=== PATIENT | male | born 1980 | race Caucasian/White ===

== ENCOUNTER → 2017-07-05 19:04 | Outpatient (CLI) | payer OTHER, SELFPAY ==
[2017-07-05 23:22] LABS: M R Staph aureus DNA By PCR Negative (Negative); Probe Check PASS; Specimen Processing Control PASS; Staph aureus DNA By PCR POSITIVE (Negative)
== END ==
PROVIDERS: Family Provider Internal Medicine; PCP Internal Medicine; Visit Provider Podiatrist
DX: L97.519 Non-pressure chronic ulcer of other part of right foot with unspecified severity (principal)
CPT/HCPCS: 87070; 87077; 87205; 87640

== ENCOUNTER → 2017-11-29 17:04 | Outpatient (CLI) | payer OTHER, SELFPAY | PROVIDERS: Family Provider Internal Medicine; PCP Internal Medicine; Visit Provider Urology | DX: R82.99 Other abnormal findings in urine (principal) | CPT/HCPCS: 87086 ==

== ENCOUNTER → 2018-05-10 17:45 | Outpatient (CLI) | payer OTHER, SELFPAY ==
[2016-03-11 13:40] VITALS: BMI 27.7
[2018-05-10 19:40] LABS: M R Staph aureus DNA By PCR Negative (Negative); Probe Check PASS; Specimen Processing Control PASS; Staph aureus DNA By PCR NEGATIVE (Negative)
== END ==
PROVIDERS: Family Provider Internal Medicine; PCP Internal Medicine; Referring Provider Podiatrist; Visit Provider Podiatrist
DX: L60.0 Ingrowing nail (principal)
CPT/HCPCS: 87070; 87075; 87077; 87186; 87205; 87640

== ENCOUNTER 2019-10-01 15:31 | Emergency (ER) | payer OTHER, SELFPAY ==
[2019-10-01 15:32] VITALS: BP 146/102; PULSE 117; RESP 16; TEMP 36.4; O2SAT 97; BMI 28.3
[2019-10-01 16:33] LABS: Absolute Lymphocyte Count 1.75 X10^3/uL (0.83-4.51); Absolute Neutrophil Count 7.4 X10^3/uL (2.0-7.7); Basophil# 0.04 X10^3/uL; Basophil% 0.4 % (0-1); Eosinophil# 0.08 X10^3/uL; Eosinophils% 0.8 % (0-5); Hematocrit 49.5 % (40-54); Hemoglobin 17.7 g/dL (13.0-16.5); Lymphocyte # 1.75 X10^3/ul (4.0); Lymphocyte % 17.3 % (19-41); Mean Corp Hgb Conc 35.8 g/dL (32-36); Mean Corpuscular Volume 89.5 fL (80-94); Monocyte# 0.81 X10^3/uL; NRBC Flagged by Analyzer 0 % (0-5); Neutrophil # 7.37 X10^3/uL (2.7-7.7); Neutrophil % 72.9 % (47-70); Platelet Count 182 K/mm3 (150-450); RBC Distribution Width CV 12.3 % (11.6-14.6); RBC Distribution Width SD 39.8 fl (35.1-43.9); Red Blood Count 5.53 M/mm3 (4.6-6.2); White Blood Count 10.1 K/mm3 (4.4-11.0)
[2019-10-01 16:38] LABS: ALB/GLOB Ratio 1.5 RATIO (0.9-2.4); AST(SGOT) 41 U/L (15-37); Alanine Aminotransfer ALT/SGPT 63 U/L (16-61); Albumin, Serum 4.7 g/dL (3.2-5.0); Alkaline Phosphatase 67 U/L (45-117); Anion Gap 9 (5-15); BUN 17 mg/dL (7-18); BUN/Creat Ratio 16.7 RATIO (10-20); Calcium,Total 9.3 mg/dL (8.5-10.1); Chloride 105 mmol/L (98-107); Creatinine, Serum 1.02 mg/dL (0.70-1.30); EST Glomerular Filtration Rate 86 mL/min (>60); Est Glom Filt Rate - Afr Amer 104 mL/min (>60); Estimated Creatinine Clearance 124.46 ml/min; Globulin 3.1 g/dL (2.2-4.2); Glucose 200 mg/dL (74-106); Potassium 3.9 mmol/L (3.5-5.1); Protein, Total 7.8 g/dL (6.4-8.2); Sodium Level 138 mmol/L (136-145)
--- NOTE | 2019-10-01 16:46 | CT_ITS ---
STUDY: CT ABDOMEN AND PELVIS WITH CONTRAST REASON FOR EXAM: Male, 39 years old. LLQ PAIN X SEVERAL DAYS, SUDDEN INCREASE IN PAIN RADIATION DOSAGE (If Supplied By Facility): CTDIvol = ( 14.48 ) mGy, DLP = ( 1246.47 ) mGycm TECHNIQUE: Transaxial images were obtained from the dome of the diaphragm to the symphysis pubis without oral contrast. IV 100mL Isovue-300 was administered. Sagittal and coronal images were reconstructed. Individualized dose optimization techniques were used for this CT. COMPARISON: 02/28/2016 FINDINGS: The visualized lung bases are unremarkable. The visualized portions of the heart are within normal limits. There is decreased attenuation of the liver consistent with steatosis. Normal gallbladder and extrahepatic biliary system. Normal spleen. Normal pancreas. Normal bilateral adrenal glands. Normal right kidney. Normal left kidney. Normal visualized stomach. Normal small intestine. Normal colon. The appendix is visualized and appears normal. Appendix best seen on coronal reconstructed image 67 Normal abdominal aorta. Normal inferior vena cava. Normal retroperitoneum. Normal urinary bladder. Normal abdominal wall. Normal osseous structures. CT/Abdomen/Pelvis W IV Cont ONLY IMPRESSION: No suspicious solid organ abnormality No CT evidence of acute inflammatory process, normal appendix visualized. No free intraperitoneal fluid, air, or suspicious adenopathy Electronically Signed: Horacio Long MD at 18:13 EDT , Service support ,
[2019-10-01] MEDS: Ketorolac 30 MG/ML Syringe IV (17:11)
[2019-10-01] MEDS: 0.9% Normal Saline 1,000 ML 1000 ML IV (17:11)
[2019-10-01] MEDS: Ondansetron 4 MG/2 ML Vial IV (17:12)
[2019-10-01] MEDS: Morphine 4 MG/ML Syringe IV (17:14)
[2019-10-01 18:54] LABS: Bacteria 0 SEEN /hpf (None Seen); Mucous, Urine 0 SEEN /hpf (<or=2+); Red Blood Cells-Urine 0 SEEN /hpf (0-5); Squamous Epithelial Cells - UA 0 SEEN /hpf (0-5); White Blood Cells 0 SEEN /hpf (0-5)
[2019-10-01] MEDS: Dicyclomine 20 MG/2 ML Vial IM (19:00)
[2019-10-01 19:06] LABS: Color, Urine Yellow (Yellow); Glucose, Dipstick 100 mg/dl (Normal); Ketone-Dipstick 15 mg/dl (Negative); Leukocyte Esterase-Dipstick Negative /ul (Negative); Nitrite-Dipstick Negative (Negative); Occult Blood-Urine Negative /ul (Negative); Protein-Dipstick 15 mg/dl (Negative); Urine Bilirubin Dipstick Negative (Negative); Urine Clarity Clear (Clear); Urine Urobilinogen Normal (Normal); Urine pH 6.5 (5.0 - 8.0)
[2019-10-01 19:15] VITALS: BP 146/86; PULSE 68; RESP 18; O2SAT 98
--- NOTE | 2019-10-01 20:20 | ED.VIS.GEN ---
History of Present Illness Chief Complaint: Abd Pain Informant: Patient Narrative: Patient presents the emergency department with left lower quadrant abdominal pain of a couple day duration. Patient states that for couple months has had some intermittent aching in the left lower quadrant but yesterday and today the pain became significantly worse. He denies any vomiting diarrhea. Denies any dysuria or hematuria. He does have a history of kidney stones. He has had a prior ureteral stent and wonders if he has scar tissue. He denies any fevers or rashes. Past Medical History - Allergies and Home Meds Allergies/Adverse Reactions: Allergies No Known Allergies Allergy (Verified 10/01/19 15:32) Primary Care Physician: Radha Beltrán MD [Primary Care Provider] - 1 Day for another exam Smoking Status: Former smoker Review of Systems General: Denies: Chills, Fever, Sweats Eyes: Denies: Visual changes - bilaterally, Diplopia ENT: Denies: Rhinorrhea, Sore throat Cardiovascular: Denies: Chest pain, Palpitations Respiratory: Denies: Dyspnea, Cough, Dyspnea on exertion Gastrointestinal: Reports: Abdominal pain, Nausea. Denies: Vomiting, Diarrhea, Melena, Hematochezia Genitourinary: Denies: Dysuria, Hematuria, Frequency Musculoskeletal: Denies: Back pain, Extremity Pain Skin: Denies: Rash, Wounds Neurological: Denies: Headache, Weakness, Numbness Physical Exam Vital Signs/Narrative: Vital Signs Pulse Resp BP Pulse Ox 10/01/19 19:15 68 18 146/86 H 98 Inital Vital Signs reviewed: Yes General: Well nourished, Well developed, No Acute Distress Head: Normocephalic, Atraumatic Eyes: Perrl, EOMI ENT: Moist mucous membranes, No rhinorrhea Neck: Supple, Nontender Cardiovascular: Regular rate, Regular rhythm, No murmurs Respiratory: No distress, CTA bilaterally, Chest nontender Abdomen: Soft, Nondistended, Normal bowel sounds, Tender - Tender palpation without guarding or rebound of the left lower quadrant no CVA tenderness. Specifically no rashes seen.. Negative for: Guarding, Rebound tenderness Back: Nontender, Normal Inspection Extremities: Nontender, No edema Skin: Normal color, No rash Neurological: Alert, Oriented x3, Cranial nerves II-XII grossly intact, Normal Strength, Normal Sensation Psychological: Normal affect, Normal Mood Diagnostic/Tx/Re-eval Clinical Impression(s) from Imaging Studies Abdomen/Pelvis CT 10/01/19 16:46 IMPRESSION: No suspicious solid organ abnormality No CT evidence of acute inflammatory process, normal appendix visualized. No free intraperitoneal fluid, air, or suspicious adenopathy Electronically Signed: Horacio Long MD at 18:13 EDT , Service support , Laboratory Last Values WBC 10.1 K/mm3 (4.4-11.0) 10/01/19 16:10 RBC 5.53 M/mm3 (4.6-6.2) 10/01/19 16:10 Hgb 17.7 g/dL (13.0-16.5) H 10/01/19 16:10 Hct 49.5 % (40-54) 10/01/19 16:10 MCV 89.5 fL (80-94) 10/01/19 16:10 MCH 32.0 pg (27.0-32.0) 10/01/19 16:10 MCHC 35.8 g/dL (32-36) 10/01/19 16:10 RDW Std Deviation 39.8 fl (35.1-43.9) 10/01/19 16:10 RDW Coeff of [place] 12.3 % (11.6-14.6) 10/01/19 16:10 Plt Count 182 K/mm3 (150-450) 10/01/19 16:10 MPV 9.0 fl (6.2-12.0) 10/01/19 16:10 Immature Gran % (Auto) 0.600 % (0.0-0.9) 10/01/19 16:10 Neut % (Auto) 72.9 % (47-70) H 10/01/19 16:10 Lymph % (Auto) 17.3 % (19-41) L 10/01/19 16:10 [place] % (Auto) 8.0 % (0-10) 10/01/19 16:10 Eos % (Auto) 0.8 % (0-5) 10/01/19 16:10 Baso % (Auto) 0.4 % (0-1) 10/01/19 16:10 Absolute Neuts (auto) 7.4 X10^3/uL (2.0-7.7) 10/01/19 16:10 Absolute Lymphs (auto) 1.75 X10^3/uL (0.83-4.51) 10/01/19 16:10 Nucleated RBC % 0 % (0-5) 10/01/19 16:10 Sodium 138 mmol/L (136-145) 10/01/19 16:10 Potassium 3.9 mmol/L (3.5-5.1) 10/01/19 16:10 Chloride 105 mmol/L (98-107) 10/01/19 16:10 Carbon Dioxide 24.0 mmol/L (21.0-32.0) 10/01/19 16:10 Anion Gap 9 (5-15) 10/01/19 16:10 BUN 17 mg/dL (7-18) 10/01/19 16:10 Creatinine 1.02 mg/dL (0.70-1.30) 10/01/19 16:10 Estim Creat Clear Calc 124.46 ml/min 10/01/19 16:10 Est GFR (MDRD) Af Amer 104 mL/min (>60) 10/01/19 16:10 Est GFR (MDRD) Non-Af 86 mL/min (>60) 10/01/19 16:10 BUN/Creatinine Ratio 16.7 RATIO (10-20) 10/01/19 16:10 Glucose 200 mg/dL (74-106) H 10/01/19 16:10 Calcium 9.3 mg/dL (8.5-10.1) 10/01/19 16:10 Total Bilirubin 4.00 mg/dL (0.20-1.00) H 10/01/19 16:10 AST 41 U/L (15-37) H 10/01/19 16:10 ALT 63 U/L (16-61) H 10/01/19 16:10 Alkaline Phosphatase 67 U/L (45-117) 10/01/19 16:10 Total Protein 7.8 g/dL (6.4-8.2) 10/01/19 16:10 Albumin 4.7 g/dL (3.2-5.0) 10/01/19 16:10 Globulin 3.1 g/dL (2.2-4.2) 10/01/19 16:10 Albumin/Globulin Ratio 1.5 RATIO (0.9-2.4) 10/01/19 16:10 Urine Color Yellow (Yellow) 10/01/19 18:45 Urine Clarity Clear (Clear) 10/01/19 18:45 Urine pH 6.5 (5.0 - 8.0) 10/01/19 18:45 Ur Specific [place] 1.010 (1.002-1.030) 10/01/19 18:45 Urine Protein 15 mg/dl (Negative) H 10/01/19 18:45 Urine Glucose (UA) 100 mg/dl (Normal) H 10/01/19 18:45 Urine Ketones 15 mg/dl (Negative) H 10/01/19 18:45 Urine Occult Blood Negative /ul (Negative) 10/01/19 18:45 Urine Nitrite Negative (Negative) 10/01/19 18:45 Urine Bilirubin Negative mg/dL (Negative) 10/01/19 18:45 Urine Urobilinogen Normal mg/dl (Normal) 10/01/19 18:45 Ur Leukocyte Esterase Negative /ul (Negative) 10/01/19 18:45 Urine RBC 0 SEEN /hpf (0-5) 10/01/19 18:45 Urine WBC 0 SEEN /hpf (0-5) 10/01/19 18:45 Ur Squamous Epith Cells 0 SEEN /hpf (0-5) 10/01/19 18:45 Urine Bacteria 0 SEEN /hpf (None Seen) 10/01/19 18:45 Urine Mucus 0 SEEN /hpf (<or=2+) 10/01/19 18:45 - Medical Decision Making Patient initially received Toradol as he wanted to be able to drive. Later he received morphine and Zofran. He also received IV fluids. Later he also received Bentyl. Our work-up does not show any obvious cause for this patient's pain. 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 I have asked that they see the patient tomorrow for repeat examination. Patient is to return if worsening or concerns I will write for some oxycodone and Zofran. ED Disposition - Plan for ED Patient: Disposition: Home or Assisted Living Diagnosis: Acute abdominal pain in left lower quadrant Instructions: ED Abdominal Pain Excl Appendx Male Prescriptions: Oxycodone HCl/Acetaminophen [Percocet 5/325] 1 tab PO Q6H PRN PRN 3 Days #12 tab PRN Reason: Pain Prescription Printed Ondansetron [Zofran Odt] 4 mg PO Q8H PRN PRN #10 tab PRN Reason: Nausea Prescription Printed Referrals: Radha Beltrán MD [Primary Care Provider] - 1 Day for another exam
[2019-10-01 20:29] VITALS: BP 143/89; PULSE 68; RESP 16; O2SAT 98
== END 2019-10-01 20:32 | disposition home or self-care (01) ==
PROVIDERS: Emergency Provider Emergency Medicine; PCP Internal Medicine
DX: R10.32 Left lower quadrant pain (principal); Z87.891 Personal history of nicotine dependence
CPT/HCPCS: 74177; 80053; 81001; 85025; 96361; 96372; 96374; 96375; 99283; J7030; Q9967; A4216; J2405

== ENCOUNTER 2021-09-17 19:32 | Emergency (ER) | payer OTHER, SELFPAY ==
[2021-09-17 19:34] VITALS: BP 142/86; PULSE 92; RESP 16; TEMP 36.1; BMI 28.5
[2021-09-17 20:10] LABS: Bacteria 0 SEEN /hpf (None Seen); Mucous, Urine 0 SEEN /hpf (<or=2+); White Blood Cells 0 SEEN /hpf (0-5)
[2021-09-17] MEDS: oxyCODONE 5 MG Tablet PO (20:10)
[2021-09-17 20:12] LABS: Color, Urine Yellow (Yellow); Glucose, Dipstick 1000 mg/dl (Normal); Ketone-Dipstick 15 mg/dl (Negative); Leukocyte Esterase-Dipstick Negative /ul (Negative); Nitrite-Dipstick Negative (Negative); Occult Blood-Urine 10 /ul (Negative); Protein-Dipstick 15 mg/dl (Negative); Urine Bilirubin Dipstick Negative (Negative); Urine Clarity Clear (Clear); Urine Urobilinogen Normal (Normal)
--- NOTE | 2021-09-17 20:13 | EDS_ITS ---
HPI History of Present Illness Chief Complaint: Complaint Detail of Chief Complaint: Unable to urinate Informant: patient Pain Onset: Today Current Severity: Moderate Maximum Severity: Moderate Narrative Narrative: 41-year-old male had left hip surgery done today at the [facility]. He was discharged home. He was under general anesthesia. We will get him resigning to urinate. History of prior prostatitis enlarged prostate. But no history of urinary retention. He did not have a Avendano catheter in today. Prior to the surgery today he has had no recent trouble urinating. He denies any dysuria or hematuria. Prior similar symptoms: No Recent Illness/Hospitalization: No PFSH PFSH Medical History Urinary retention Home Medications alprazolam 1 mg tablet 1 mg PO DAILY PRN Anxiety 10/01/19 [History Last Taken Unknown] atorvastatin 20 mg tablet 20 mg PO QHS 10/01/19 [History Last Taken Unknown] lisinopril 10 mg tablet 10 mg PO DAILY 10/01/19 [History Last Taken Unknown] metformin 500 mg tablet,extended release 24 hr 500 mg PO DAILY 10/01/19 [History Last Taken Unknown] ondansetron 4 mg disintegrating tablet 4 mg PO Q8H PRN PRN Nausea #10 tabs 10/01/19 [Rx Last Taken Unknown] Allergy/AdvReac Type Severity Reaction Status Date / Time No Known Allergies Allergy Verified 10/01/19 15:32 Surgical History History of hip surgery Social History Smoking Status: Unknown if ever smoked ROS ROS ED ROS Narrative Denies recent illness. Review of Systems ROS Unobtainable: Denies due to encephalopathy Constitutional Constitutional ED: Denies chills Eyes Eyes: Denies blurry vision ENT ENT ED: Denies ear pain Cardiovascular Cardiovascular: Denies chest pain Gastrointestinal Gastrointestinal: Denies abdominal pain Genitourinary Genitourinary ED: Denies dysuria Musculoskeletal Musculoskeletal: Denies arthralgias Integumentary Denies abscess Neurologic Neurologic: Denies headache(s) Psychiatric Psychiatric: Denies anxiety Endocrine Endocrinology: Denies polydipsia Hematologic/Lymphatic Hematologic/Lymphatic: Denies easy bleeding Allergic/Immunologic Allergic/Immunologic ED: Denies mouth swelling EXAM Physical Exam Narrative Exam Narrative: 41-year-old male no acute distress vital signs stable afebrile. Nurses have already placed a 16 K[address] Avendano catheter. He is feeling much better. He read about 750 cc output of clear yellow urine. HEENT exam unremarkable. Lungs are clear. Heart regular rhythm. Abdomen soft, nontender, nondistended normal bowel sounds no peritoneal signs. Emesis after the Avendano catheters are in place. Moving all 4 extremities. Calves are nontender without edema. Neurologically is awake and alert. Const Vital Signs: 09/17/21 19:34 09/17/21 19:34 Temperature 96.9 F L 96.9 F L Temperature Source Temporal Temporal Pulse Rate 92 92 Respiratory Rate 16 16 Blood Pressure 142/86 H 142/86 H Blood Pressure Mean 104 104 Positive well nourished and well developed; Negative for obese, cachectic, contractures or unkempt General Appearance ED: well developed; Negative for unkempt, cachectic, contractures or pallor Nutritional Appearance: Negative for cachectic or obese HEENT Reports moist mucous membranes; Denies dry mucous membranes normocephalic and atraumatic; Negative for trauma or tenderness Mouth ED: No dry mucous membranes Mouth: No dry mucous membranes Eyes PERRL and EOMs intact bilaterally General Eye ED: Negative for pale conjunctiva or scleral icterus Neck no lymphadenopathy, supple and no JVD General: Negative for tenderness Resp normal respiratory effort and clear to auscultation bilaterally Auscultation: Negative for rales or rhonchi Cardio regular rate, regular rhythm, S1 normal heart sound and S2 normal heart sound Rate: Negative for bradycardia GI non-tender, non-distended and no masses GI Narrative: Avendano catheter replaced by nursing. Inspection: Negative for abdominal distention Auscultation: normoactive bowel sounds Palpation: soft; Negative for tender, guarding, hepatomegaly or splenomegaly no CVA tenderness Bladder / Kidney Exam: No CVA tenderness Back/Spine no CVA tenderness Extremity normal to inspection General Extremety ED: Negative for edema General Extremity: Negative for edema Neuro oriented x3, CN's II-XII intact bilaterally, moves all extremities, no focal motor deficits and no sensory deficits noted Sensorium / Orientation: alert, oriented to person, oriented to place and oriented to time Motor Exam: strength 5/5 throughout Psych mental status grossly normal Appearance: Negative for unkempt Attitude: No agitated Mood & Affect: Negative for depressed Thought Process: normal thought process Thought Content: normal thought content Skin General Skin Exam: Negative for jaundice or pallor Rashes: no rashes Trauma: Negative for abrasion MDM MDM MDM Narrative Medical decision making narrative: 41-year-old male status post surgery today with urinary retention. Bladder scan showed 750 cc. Nurse placed a Avendano catheter and he has about 800 cc of clear yellow urine out. No gross hematuria. Patient was given 1 oxycodone for pain due to his hip. Because he did not take any of his pain medication this evening. Patient doing well at 9:19 PM will be discharged home with Avendano catheter. He will follow-up with his urologist. Lab Data Attestation: I reviewed the patient's lab results. Lab results narrative: Urinalysis shows no acute abnormality. Glucose. No infection. No blood. No bacteria. Labs: Laboratory Results - last 24 hr 09/17/21 20:00 Urine Color Yellow Urine Clarity Clear Urine pH 6.0 Ur Specific [place] 1.020 Urine Protein 15 H Urine Glucose (UA) 1000 H Urine Ketones 15 H Urine Occult Blood 10 H Urine Nitrite Negative Urine Bilirubin Negative Urine Urobilinogen Normal Ur Leukocyte Esterase Negative Urine RBC 0-5 SEEN Urine WBC 0 SEEN Ur Squamous Epith Cells 0-5 SEEN Urine Bacteria 0 SEEN Urine Mucus 0 SEEN Discharge Plan Triage Chief Complaint: Complaint ED Provider: Conrado Flor Dx/Rx/DC Orders Clinical Impression: Postoperative urinary retention, Status post hip surgery, History of diabetes mellitus Instructions: ED Urinary Retention, Male Prescriptions: No Action atorvastatin 20 MG tablet 20 mg PO QHS alprazolam 1 MG tablet 1 mg PO DAILY PRN (Reason: Anxiety) lisinopril 10 MG tablet 10 mg PO DAILY metformin 500 MG tablet extended release 24 hr 500 mg PO DAILY ondansetron 4 MG tablet 4 mg PO Q8H PRN PRN (Reason: Nausea) Qty: 10 0RF Primary Care Provider: Radha Beltrán Referrals: Dano Mittal MD [STAFF PHYSICIAN] - As soon as possible Radha Beltrán MD [Primary Care Provider] - Activity Restrictions/Additional Instructions: The Avendano bag whenever half to three quarters full. Call and follow-up with Dr. Isidoro Mittal on Tuesday or Tuesday. Return if the catheter is not draining. Disposition Disposition: Home, Self Care
[2021-09-17 21:06] LABS: Red Blood Cells-Urine 0-5 SEEN /hpf (0-5); Squamous Epithelial Cells - UA 0-5 SEEN /hpf (0-5)
== END 2021-09-17 21:48 | disposition home or self-care (01) ==
LOC: ED 20:27
PROVIDERS: Emergency Provider Emergency Medicine; PCP Internal Medicine; Visit Provider Emergency Medicine
DX: R33.8 Other retention of urine (principal)
CPT/HCPCS: 51702; 81001; 99284

== ENCOUNTER 2022-01-08 08:00 | Outpatient (RCR) | payer SELFPAY | END 2022-01-08 19:00 | disposition home or self-care (01) | LOC: PT 08:00 | PROVIDERS: PCP Internal Medicine | DX: R69 Illness, unspecified (principal) ==

== ENCOUNTER 2023-04-22 09:00 | Outpatient (RCR) | payer OTHER, SELFPAY ==
--- NOTE | 2023-02-18 08:50 | HP.PTEVAL ---
Patient's Visit Information Visit Information Visit Information: GALA NAVAS is a 42 year old M referred to Physical Therapy by Dr. Zoran Mathews MD with a diagnosis of Right Arthroscopic Labral Repair with Capsular Closure/Repair 12/23/22. Date of Evaluation: 01/17/23 Physical Therapist: Mati Blevins, PT, ATC Visit Plan Frequency: 2x /Week Duration: 6 Weeks Plan: Follow [facility] Dr. Mathews's Protocol- Scanned in Chart- in Folder. Subjective Subjective: Patient reports that he has had right hip pain for years- diagnosis 2021 sx (microfracture, labral repair by Dr. Mathews)- had Right Arthroscopic Labral Repair with Capsular Closure/Repair 12/23/22 Dr. Mathews- ended with abscess in tailbone-general surgeon had to have it opened up and is on antibiotics- is doing glut sets- TA contractions- quad sets- CPM machine 6 hours a day- 120 degrees for 2 weeks- around the house he is not on crutches- he is only using them out of the house. He feels better than he did after the first surgery. Worst in the last 48 hours: 6-7 Agg: movement, being on it. Describes the pain as dull and achy. Eases: ice, rest, Best: 2-3/10. Current: 2-3/10 Pain is located in the lateral aspect- radiates down 1[address] down the thigh and to mid groin- No back pain- some mild buttock pain but rare. Does have mild N/T in the pelvic are but that is diminishing no N/T down the leg. Did have bladder issues with the surgery- they kept him over night- he will see individual small group instructor next week due to a-fib- he followed up with urology and everything is good. Fully I prior to surgery- planning to get back to doing all of these things. Active- likes to get back to golf. 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 Wears [place]- when he walks- no inserts in his shoes. PMHx: DM, HTN, Skin Cancer. Meds: metformin, lisinopril, lipitor, baby asprin Pain Right Hip: Pain Intensity (Out of 10): 3 Objective Objective: Posture: forward head, rounded shoulders- can correct with cues but does not maintain Gait: back to tx room pt is using bilateral axillary crutches and does not place foot on ground- when given instruction patient was able to ambulate with foot flat with bilateral axillary crutches with appropriate technique without pain HR/TR with UE A SLS: weight shift with UE without pain AROM: Knee: no restriction noted, Hip: flexion: 110 with mild pinch at end range, extn: neutral, abd: 40 degrees, IR: neutral ER: 20 degrees- did not push into painful ranges. Strength: Ankle: 5/5, Knee: Exnt:88 Flexion: 45 Hip: Isometric Testing: no pain: 4/5 Core: fair Flex: HS: moderate, Gastroc: moderate, Quad: moderate Incision: did not observe as he is working with wound and on antibiotics for abscess. Balance/Special Test Scores Lower Extremity Functional Score: 46 Goals Goal 1:: Patient will report participation in home exercise program activities a minimum of 5 days per week, as adjunct to skilled physical therapy intervention in preparation for independent home management upon discharge. Goal Time Frame: 12-16 Weeks Goal 2:: Patient will report an increase of 9 points on the LEFS to show minimal clinical significant difference on patients functional outcome measure. Goal Time Frame: 12-16 Weeks Goal 3:: Patient will decrease TUG test to less than 10 seconds to demonstrate improved balance and increase safety with ADL?s. Goal Time Frame: 12-16 Weeks Goal 4:: Patient will ascend and descend 4+ stairs reciprocally without a handrail to demonstrate increased LE functional strength and ease community mobility. Goal Time Frame: 12-16 Weeks Goal 5:: Patient will perform a sit to stand from chair without use of upper extremity x10 repetition to demonstrate increase LE functional strength and ease community mobility. Goal Time Frame: 12-16 Weeks Goal 6:: Patient will stand on even surface with eyes open without loss of balance for 30 seconds to demonstrate improved balance and increase safety with ADL?s. Goal Time Frame: 12-16 Weeks Rehabilitation Potential Physical Therapy Diagnosis: Patient presents s/p surgical repair of the right hip- he has decreased ROM, LE and core strength/stabilization, flex, proprioception and muscular endurance leading to abnormal gait, balance and decreased ability to perform ADL's. Rehabilitation Potential: Excellent Anticipated Interventions Patient/Client Instruction: Educate patient on: Benefits of Fitness Program Therapeutic Exercise to Include: Strength training, Endurance training, Balance training, Coordination, Agility training, Body mechanics, Postural training, Flexibilty training, Gait and locomotor training, Neuromotor development, Passive ROM, Active ROM, Dynamic Lumbar Stabilization and Scapular Strength/Stabilization TENS: Yes Cryotherapy (ice pack, ice massage): Yes Thermo therapy (hot pack): Yes Vasopneumatic device: Yes Text: Thank you for the opportunity to evaluate your patient. For Medicare and Medicare HMO plans, please review the plan of care and approve it. It will need to be FAXED BACK to us at [phone] for Medicare purposes. For Medicare only, by signing this I certify the plan of care. Please let me know if there are questions or concerns regarding this plan of care. Physician Signature: Date:
--- NOTE | 2023-02-18 09:08 | HP.PTREVAL ---
Re-Evaluation Intro: Dr. Zoran Mathews MD, It has been my pleasure to treat GALA NAVAS over the last 9 visits for Right Arthroscopic Labral Repair with Capsular Closure/Repair 12/23/22. Please see the progress note below for an update on the physical therapy plan of care! Subjective Subjective: I feel like I am getter better but need more therapy Objective Objective/Function: R hip pain ranges from 3-6/10 MMT: R hip flex 26, abd= 47, add= 65 #F; L hip flex= 38, abd= 53, add= 53 #F Pt is able to stand for 30 sec EO without difficulty Pt is able to sit to stand x 10 without UE's and no difficulty Pt is able to ascend and descend 10 stairs without UE and no difficulty Pt has achieved all Rx goals set through this date, but still demonstrates R hip weakness and pain Plan Plan Plan: Follow [facility] Dr. Mathews's Protocol- Scanned in Chart- in Folder. Balance/Gait/Functional tests Balance/Special Test Scores Lower Extremity Functional Score: 46 Goals Goals Goal 1:: Patient will report participation in home exercise program activities a minimum of 5 days per week, as adjunct to skilled physical therapy intervention in preparation for independent home management upon discharge. Goal Time Frame: 12-16 Weeks Goal Progress: Goal Met Goal 2:: Patient will report an increase of 9 points on the LEFS to show minimal clinical significant difference on patients functional outcome measure. Goal Time Frame: 12-16 Weeks Goal 3:: Patient will decrease TUG test to less than 10 seconds to demonstrate improved balance and increase safety with ADL?s. Goal Time Frame: 12-16 Weeks Goal Progress: Goal Met Goal 4:: Patient will ascend and descend 4+ stairs reciprocally without a handrail to demonstrate increased LE functional strength and ease community mobility. Goal Time Frame: 12-16 Weeks Goal Progress: Goal Met Goal 5:: Patient will perform a sit to stand from chair without use of upper extremity x10 repetition to demonstrate increase LE functional strength and ease community mobility. Goal Time Frame: 12-16 Weeks Goal Progress: New goal Goal 6:: Patient will stand on even surface with eyes open without loss of balance for 30 seconds to demonstrate improved balance and increase safety with ADL?s. Goal Time Frame: 12-16 Weeks Goal Progress: New goal Anticipated Interventions Anticipated Interventions Patient/Client Instruction: Educate patient on: Benefits of Fitness Program Therapeutic Exercise to Include: Strength training, Endurance training, Balance training, Coordination, Agility training, Body mechanics, Postural training, Flexibilty training, Gait and locomotor training, Neuromotor development, Passive ROM, Active ROM, Dynamic Lumbar Stabilization and Scapular Strength/Stabilization TENS: Yes Cryotherapy (ice pack, ice massage): Yes Thermo therapy (hot pack): Yes Vasopneumatic device: Yes Re-Evaluation Ending Re-evaluation ending: Please do not hesitate to contact me at [phone] by phone or if you have questions or concerns regarding this new plan of care! Sincerely, Mati Blevins, PT, ATC
--- NOTE | 2023-03-23 11:04 | HP.PTREVAL ---
Re-Evaluation Intro: Dr. Zoran Mathews MD, It has been my pleasure to treat GALA NVAAS over the last 17 visits for Right Arthroscopic Labral Repair with Capsular Closure/Repair 12/23/22. Please see the progress note below for an update on the physical therapy plan of care! Subjective Subjective: Pt reports he has nearly no pain today. He feels like he could maybe rehab on his own at this time. Objective Objective/Function: L hip pain ranges from 2-5/10 L hip MMT: flex= 37 #F (R= 37 #F), abd= 67, add= 69 #F L hip flex= 105, R hip flex= 115 degrees Pt has shown sig improvements with progress at this time. Plan Plan Plan: Re check or discharge in one month. Balance/Gait/Functional tests Balance/Special Test Scores Lower Extremity Functional Score: 52 Goals Goals Goal 1:: Patient will report participation in home exercise program activities a minimum of 5 days per week, as adjunct to skilled physical therapy intervention in preparation for independent home management upon discharge. Goal Time Frame: 12-16 Weeks Goal Progress: Goal Met Goal 2:: Patient will report an increase of 9 points on the LEFS to show minimal clinical significant difference on patients functional outcome measure. Goal Time Frame: 12-16 Weeks Goal Progress: Goal Met Goal 3:: Patient will decrease TUG test to less than 10 seconds to demonstrate improved balance and increase safety with ADL?s. Goal Time Frame: 12-16 Weeks Goal Progress: Goal Met Goal 4:: Patient will ascend and descend 4+ stairs reciprocally without a handrail to demonstrate increased LE functional strength and ease community mobility. Goal Time Frame: 12-16 Weeks Goal Progress: Goal Met Goal 5:: Patient will perform a sit to stand from chair without use of upper extremity x10 repetition to demonstrate increase LE functional strength and ease community mobility. Goal Time Frame: 12-16 Weeks Goal Progress: New goal Goal 6:: Patient will stand on even surface with eyes open without loss of balance for 30 seconds to demonstrate improved balance and increase safety with ADL?s. Goal Time Frame: 12-16 Weeks Goal Progress: New goal Anticipated Interventions Anticipated Interventions Patient/Client Instruction: Educate patient on: Benefits of Fitness Program Therapeutic Exercise to Include: Strength training, Endurance training, Balance training, Coordination, Agility training, Body mechanics, Postural training, Flexibilty training, Gait and locomotor training, Neuromotor development, Passive ROM, Active ROM, Dynamic Lumbar Stabilization and Scapular Strength/Stabilization TENS: Yes Cryotherapy (ice pack, ice massage): Yes Thermo therapy (hot pack): Yes Vasopneumatic device: Yes Re-Evaluation Ending Re-evaluation ending: Please do not hesitate to contact me at [phone] by phone or if you have questions or concerns regarding this new plan of care! Sincerely, Mati Blevins, PT, ATC
--- NOTE | 2023-07-12 14:23 | HP.PT.NRP ---
Patient Information Patient Information: GALA NAVAS was seen in my office for initial evaluation on 01/17/23. The following Plan of Care was established for this patient: POC Established Initial Frequency: 2x /Week Initial Duration: 6 Weeks Anticipated Interventions Patient/Client Instruction: Educate patient on: Benefits of Fitness Program Therapeutic Exercise to Include: Strength training, Endurance training, Balance training, Coordination, Agility training, Body mechanics, Postural training, Flexibilty training, Gait and locomotor training, Neuromotor development, Passive ROM, Active ROM, Dynamic Lumbar Stabilization and Scapular Strength/Stabilization TENS: Yes Cryotherapy (ice pack, ice massage): Yes Thermo therapy (hot pack): Yes Vasopneumatic device: Yes Last Seen Last Seen: This patient was last seen in our office . Pertinent comments regarding their Physical therapy will appear below: Pt was treated for 17 PT visits for R hip pain through the date of 03/23/23. Pt has not returned through this date and is discontinued at this time. At this point I will be discontinuing this patient from physical therapy. I would be happy to see this patient again in the future if found appropriate by the physician. Thank you! Mati Blevins, PT, ATC Balance/Gait/Functional tests Balance/Special Test Scores Lower Extremity Functional Score: 52
== END 2023-04-22 19:00 | disposition home or self-care (01) ==
LOC: PT 09:00
PROVIDERS: PCP Internal Medicine; Referring Provider Orthopaedic Surgery Sports Medicine; Visit Provider Orthopaedic Surgery Sports Medicine
DX: M24.151 Other articular cartilage disorders, right hip (principal); M25.851 Other specified joint disorders, right hip
CPT/HCPCS: 97014; 97110; 97162; 97164; G0283

== ENCOUNTER 2023-08-15 07:01 | Outpatient (RCR) | payer OTHER, SELFPAY ==
--- NOTE | 2023-08-15 08:53 | HP.PTEVAL_ITS ---
Patient's Visit Information Visit Information Visit Information: GALA NAVAS is a 43 year old M referred to Physical Therapy by Dr. Juice Rendon DPM with a diagnosis of Left Peroneal Tenonitis. Date of Evaluation: 08/15/23 Physical Therapist: Lakshmi Han DPT Visit Plan Frequency: 1x/Week Duration: 1 Week Plan: 1x visit for HEP. Will call if questions or concerns HEP Given IE: seated and standing Gastroc/Soleus Stretching, Step Stretching. Subjective Subjective: Patient reports he has been in a lot of pain both feet but left>right. He has had issues with his feet-Charcot his mother- and he is being tested officially next moth- she has major issues with it. Wanted to do injections or PT and so he wanted to try PT first. He walks 4 miles a day and its miserable to get and its okay then when he stops moving its miserable again. Once he is off his feet he is okay but then getting back up its painful again. Pain is located on the lateral aspect of the malleolus and wraps around under the heel. Does have some radiating pain into the calf but rarely. Worst: 8/10 Agg: walking barefoot, uneven surfaces. Best: 2/10 Eases: shoes, get off of them. He is currently taking anti-inflam. Stock inserts and is being measure for orthotics. Hoka's for the most part- he is in tennis shoes or ugg slippers around the house. 4 miles a day- pavement or concrete- not uneven surfaces- quick walking- under 14 min miles. 2 hip surgeries on the right in the last 2 years and plans to have another one this summer. He feels the feet are getting worse. Describes the pain as radiating and sharp. He is diabetic so he thought it was neuropathy but his A1c has been consistently good. 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 Sleep: disturbed- hard to get comfortable and wakes him up- side sleeper and transi tioned to a back sleeper. Rarely N/T in the feet. No back issues. Goals: mitigate discomfort and get some tools. Objective Objective: Posture: good throughout session Gait: Decreased heel strike with and without shoes- can heel strike when given verbal cues but reports he feels very uncomfortable and awkward. HR/TR: able but stiff with TR SLS: 30 sec bilateral without LOB but does have increased muscle activation and sway Observation: fair arches- no collapse in single leg stance Flex: Gastroc: severe, Soleus: severe Palpation: left tender to touch along lateral aspect of 5th met ROM: DF: neutral bilateral Strength: WNL in all planes of the LE to break testing Balance/Special Test Scores Lower Extremity Functional Score: 40 Goals Goal 1:: Patient will be I with HEP Goal Time Frame: 1 Week Rehabilitation Potential Physical Therapy Diagnosis: Patient presents with decreased ROM and flexibility of bilateral ankles leading to an abnormal gait pattern and increased pain Rehabilitation Potential: Good Anticipated Interventions Therapeutic Exercise to Include: Flexibilty training Text: Thank you for the opportunity to evaluate your patient. For Medicare and Medicare HMO plans, please review the plan of care and approve it. It will need to be FAXED BACK to us at [phone] for Medicare purposes. For Medicare only, by signing this I certify the plan of care. Please let me know if there are questions or concerns regarding this plan of care. Physician Signature: Date:
--- NOTE | 2023-12-06 17:46 | HP.PT.NRP ---
Patient Information Patient Information: GALA NAVAS was seen in my office for initial evaluation on 08/15/23. The following Plan of Care was established for this patient: POC Established Initial Frequency: 1x/Week Initial Duration: 1 Week Anticipated Interventions Therapeutic Exercise to Include: Flexibilty training Last Seen Last Seen: This patient was last seen in our office . Pertinent comments regarding their Physical therapy will appear below: Appropriate to be d/c at this time and continue HEP At this point I will be discontinuing this patient from physical therapy. I would be happy to see this patient again in the future if found appropriate by the physician. Thank you! Lakshmi Han DPT Balance/Gait/Functional tests Balance/Special Test Scores Lower Extremity Functional Score: 40
== END 2023-08-15 19:00 | disposition home or self-care (01) ==
LOC: PT 07:01
PROVIDERS: PCP Internal Medicine; Referring Provider Student in an Organized Health Care Education/Training Program; Visit Provider Student in an Organized Health Care Education/Training Program
DX: M76.72 Peroneal tendinitis, left leg (principal)
CPT/HCPCS: 97110; 97162

== ENCOUNTER → 2023-09-01 | Outpatient (CLI) | payer OTHER, SELFPAY ==
--- NOTE | 2023-09-01 08:56 | NEURO ---
NCS and/or EMG Patient Report Ordering Doctor: Anthony Knott DATE OF SERVICE: 09/01/23 Clinical Summary: 43 year old male patient with symptoms of numbness/tingling in both feet. He denies having any history of back pain or sciatica-like symptoms. Nerve Conduction Studies Summary: The left sural to radial sensory amplitude ratio was 0.155. The left peroneal motor conduction velocity was reduced at the fibular head. Nerve conduction studies were normal. Needle Examination Summary: Needle examination of select muscles of the bilateral lower extremities was normal. Impression: There is electrodiagnostic evidence of the following - 1) A low left sural to radial amplitude ratio (SRAR) was seen in this study, which is electrodiagnostically indicative of a mild, axonal peripheral polyneuropathy Multi Select Codes Neurology Neurology Interp Codes: 98461-15 Musc test done w/n test comp (interp) (2) and 36242-58 Nrv cndj test 9-10 studies (interp)
== END | disposition home or self-care (01) ==
LOC: PSN 07:06
PROVIDERS: PCP Internal Medicine; Referring Provider Podiatrist; Visit Provider Podiatrist
DX: R20.2 Paresthesia of skin (principal)
CPT/HCPCS: 95886; 95910; 95911

== ENCOUNTER 2024-02-29 08:00 | Outpatient (RCR) | payer OTHER, SELFPAY ==
--- NOTE | 2023-12-13 12:49 | HP.PTEVAL ---
Patient's Visit Information Visit Information Visit Information: GALA NAVAS is a 43 year old M referred to Physical Therapy by Davis Hilton MD with a diagnosis of S/P TOTAL HIP RESURFACING. Date of Evaluation: 12/13/23 Physical Therapist: Fletcher Wei, PT, Cert MDT, OCS Visit Plan Frequency: 2x /Week Duration: 8 WEEKS Plan: S/P RIGHT BSR ,TOTAL HIP RESURFACING 10/20/23 SEE PROTOCOL PT INTERVENTIONS ROM HIP ,FLEXABILITY ,STRENGTHENING QUADS/HAMS/HIP ,CORE STRENGTHENING ,FUNCTIONAL STRENGTHENING AND AEROBIC EX'S Subjective Subjective: This 43 y/o male presents to physical therapy with s/p right BHR with hip resurfacing done by 10/20/[address] Moran at [facility] . Patient was d/c 10/20 . Patient 50% PWB RLE with crutches 6 weeks . Patient was WBAT RLE 11/30 then gradually weaned crutches did x-rays looked. Patient had lateral hip approach . Current restriction no impact. Patient has h/o of right anterior hip impingement due to labral repair with microfracture 2021 and 2022 labral with revision with Dr Leyva at [facility]. Patient tired PT made symptoms worse and had MRI showed symptoms worsening thus referred to . Patient global hip pain c/o stabbing radiating otherwise dull ache.Stopped oxycodone . Denies paresthesia/tingling -. Patient pain affects sleeping. Aggravating factors walking/standing affects ADLS /housework tasks . Patient is active major sports golf. Patient condition affects. 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: Pain Right Hip: Pain Intensity (Out of 10): 5 Pain Intensity Range: 10 Objective Objective: POSTURE: WFL SKIN: incision well approximated lateral NEURO: denies paresthesia/tingling GAIT : reciprocal pattern decrease stance time RLE antalgic gait PROM: hip flexion 100 degrees ,IR 10 degrees ,40 degrees ER ,extension 10 degrees MMT: quads 4/5 ,hamstrings 4/5 ,( peak force) hip abduction 10.1 ,hip flexion 21.1 SLS: < 10SEC lateral drops Balance/Special Test Scores Lower Extremity Functional Score: 31 Goals Goal 1:: Patient to be I with HEP for hip Goal Time Frame: 6-8 Weeks Goal 2:: Patient to normalize gait Goal Time Frame: 6-8 Weeks Goal 3:: Patient to improve peak force hip abductors and hip flexion by 10-15 # strength to improve function Goal Time Frame: 6-8 Weeks Goal 4:: Patient to demonstrate 75% improvement with decrease pain and improved function Goal Time Frame: 6-8 Weeks Goal 5:: Patient improve LFES score by 10 points to improve QOL and function and gait Goal Time Frame: 6-8 Weeks Rehabilitation Potential Physical Therapy Diagnosis: This patient underwent s/p right BHR S/P total hip resurfacing with decrease ROM ,weakness , pain causes decrease gait and ADLS /job demands thus benefit from skilled PT Rehabilitation Potential: Good Anticipated Interventions Patient/Client Instruction: Educate patient on: Condition and Plan of Care For the Purpose of:: To decrease pain, To increase ROM, To improve muscle performance and motor function, To improve ability to perform ADL's, To increase tolerance to activity/condition/position, To improve ability of physical actions for home/community/work/leisure, To improve health of tissue, To decrease soft tissue restriction, To increase flexibility/ROM, To improve endurance, To improve balance and To improve tolerance to ADL's Therapeutic Exercise to Include: Strength training, Endurance training, Balance training, Flexibilty training and Stephanie Exercises Comment: hip/quads/hams For the Purpose of:: To decrease pain, To increase ROM, To improve muscle performance and motor function, To improve ability to perform ADL's, To increase tolerance to activity/condition/position, To improve health of tissue, To decrease soft tissue restriction, To increase flexibility/ROM, To improve endurance, To improve balance, To reduce risk of recurrence and To improve health and function Text: Thank you for the opportunity to evaluate your patient. For Medicare and Medicare HMO plans, please review the plan of care and approve it. It will need to be FAXED BACK to us at [phone] for Medicare purposes. For Medicare only, by signing this I certify the plan of care. Please let me know if there are questions or concerns regarding this plan of care. Physician Signature: Date:
--- NOTE | 2024-02-29 08:31 | HP.PTDCSUM ---
Discharge Summary D/C summary: It has been my pleasure to treat GALA NAVAS referred by Davis Hilton MD, with the diagnosis of S/P TOTAL HIP RESURFACING for a total of 16 visit(s). Discharge Date: 02/29/24 Please see the following information for a summary of their discharge status. Subjective Subjective: Seen Dr last Tuesday Return in October Pain is wosre at night Pain Right Hip: Pain Intensity (Out of 10): 0 Overall Improvement % Improvement: 80 Objective Objective/Function: Objective: POSTURE: WFL SKIN: WFL NEURO: denies paresthesia/tingling GAIT : reciprocal pattern PROM: hip flexion 120 degrees ,IR 20 degrees ,50 degrees ER ,extension 10 degrees ,hip abd 40 degrees MMT: quads 4/5 ,hamstrings 4/5 ,( peak force) hip [id number] ,hip flexion 48.6 SLS: 30SEC lateral drops Goals Goal 1:: Patient to be I with HEP for hip Goal Progress: Goal Met Goal 2:: Patient to normalize gait Goal Progress: Goal Met Goal 3:: Patient to improve peak force hip abductors and hip flexion by 10-15 # strength to improve function Goal Progress: Goal Met Goal 4:: Patient to demonstrate 75% improvement with decrease pain and improved function Goal Progress: Goal Met Goal 5:: Patient improve LFES score by 10 points to improve QOL and function and gait Goal Progress: Goal Met Plan Plan: d/c D/C Information Discharge Comments: HEP d/c sentence: If there are questions or concerns regarding this patient's physical therapy, please feel free to call me at [phone]. Thank you for the referral of this patient. Sincerely, Fletcher Wei, PT, Cert MDT, OCS Balance/Gait/Functional tests Balance/Special Test Scores Lower Extremity Functional Score: 57 Improvement % Improvement: 80
== END 2024-02-29 19:00 | disposition home or self-care (01) ==
LOC: PT 08:00
PROVIDERS: PCP Internal Medicine; Referring Provider Orthopaedic Surgery; Visit Provider Orthopaedic Surgery
DX: Z96.649 Presence of unspecified artificial hip joint (principal)
CPT/HCPCS: 97110; 97162; 97530

== ENCOUNTER → 2024-09-12 | Outpatient (CLI) | payer OTHER, SELFPAY ==
--- OUTSIDE RECORDS SUMMARY | 2024-09-12 07:21 | XMS RPT_ITS | CCD ---
Author Organization [facility] Care Team Providers Care Property Insurance Claims Examiner Name Role Phone Zoran Mathews MD Unavailable Vesta Stallworth MD Primary Care Provider Vesta Stallworth MD Primary Care Provider Vesta Stallworth MD Primary Care Provider RHODA LANGLEY Attending Unavailable TALAMPAS, VESTA, Primary Care Unavailable RHODA LANGLEY Attending Unavailable TALAMPAS, VESTA, Primary Care Unavailable ZORAN MATHEWS Referring Unavailable MESKO, HOLLAND W Attending Unavailable TALAMPAS, VESTA D Primary Care Unavailable Vesta Stallworth MD Primary Care Provider Jasmina Rincon MD Unavailable [phone] Unavailable Primary Care Provider Unavailabl e Vesta Stallworth Primary Care Provider [phone] FRESH WORK INSPECTOR.PHYSICIAN INDUSTRIAL, Tiara Unavailable Yinka FRESH WORK INSPECTOR.STEAM BOILER FIREMAN, Yosef Unavailable Yinka FRESH WORK INSPECTOR.STEAM BOILER FIREMAN, Yosef Jeanie Unavailable Yinka FRESH WORK INSPECTOR.STEAM BOILER FIREMAN, Yosef Unavailable Yinka FRESH WORK INSPECTOR.STEAM BOILER FIREMAN, Yosef Unavailable NISHA SINGH Attending Unavailable PROVIDER, UNKNOWN Referring Unavailable TALAMPAS, VESTA D Primary Care Unavailable TALAMPAS, VESTA D Attending Unavailable TALAMPAS, VESTA D Primary Care Unavailable TALAMPAS, VESTA D Primary Care Unavailable MESKO, HOLLAND W Referring Unavailable TALAMPAS, VESTA D Primary Care Unavailable MESKO, HOLLAND W Referring Unavailable TALAMPAS, VESTA D Primary Care Unavailable MESKO, HOLLAND W Referring Unavailable TALAMPAS, VESTA D Primary Care Unavailable MESKO, HOLLAND W Referring Unavailable TALAMPAS, VESTA D Primary Care Unavailable TALAMPAS, VESTA D Attending Unavailable TALAMPAS, VESTA D Primary Care Unavailable TALAMPAS, VESTA D Referring Unavailable TALAMPAS, VESTA D Primary Care Unavailable MESKO, HOLLAND W Referring Unavailable TALAMPAS, VESTA D Primary Care Unavailable JASMINA RINCON Attending Unavailable TALAMPAS, VESTA D Primary Care Unavailable HEATHER DIEGO Attending Unavailabl e TALAMPAS, VESTA D Primary Care Unavailable MESKO, HOLLAND W Referring Unavailable TALAMPAS, VESTA D Primary Care Unavailable TALAMPAS, VESTA D Primary Care Unavailable ANTHONY MARTINEZ Attending Unavailable TALAMPAS, VESTA D Referring Unavailable TALAMPAS, VESTA D Primary Care Unavailable TALAMPAS, VESAT D Primary Care Unavailable ALESSANDRA ZHOU Referring Unavailable TALAMPAS, VESTA D Primary Care Unavailable TALAMPAS, VESTA D Primary Care Unavailable MESKO, HOLLAND W Attending Unavailable TALAMPAS, VESTA D Primary Care Unavailable TALAMPAS, VESTA D Primary Care Unavailable TALAMPAS, VESTA D Primary Care Unavailable Talampas , Dr. Vesta French Primary Care Provider Dr. Vesta Stallworth MD Referring Provider Dr. Jesus Peacock MD Attending Provider [phone] Jesus Peacock Attending Unavailable Talampas, Vesta D Referring Unavailable Talampas, Vesta D Primary Care Unavailable Shemarko, Holland Attending Unavailable Talampas, Vesta D Primary Care Unavailable Holland Mo Referring Unavailable Jesus Peacock Referring Unavailable Jesus Peacock Attending Unavailable Talampas, Vesta D Primary Care Unavailable Allergies Allergy Classification Reported Allergen(s) Allergy Type Date of Onset Reaction(s) Facility (1 source) House dust mite; Translations: [DUST MITES] allergy to substance 1 [facility] Work Phone: (20 sources) predniSONE; Translations: [PREDNISONE] Drug Allergy 9 Intolerance [facility] Work Phone: (1 source) PLANT POLLENS; Translations: [PLANT POLLENS] allergy to substance 1 hay fever [facility] Work Phone: (4 sources) Prednisone Propensity to adverse reactions 9 [facility] Medications Current Medications Medication Drug Class(es) Dates Sig (Normalized) Sig (Original) 24 hr alfuzosin hydrochloride 10 mg extended release oral tablet (20 sources) alpha-Adrenergic Trinity Start: 12-29-2021 End: 12-12-2023 take 1 tablet by mouth once daily at bedtime alfuzosin SR (UROXATRAL) 10 mg 24 hr tablet Indications: Benign prostatic hyperplasia, unspecified whether lower urinary tract symptoms present Take 1 tablet by mouth daily at bedtime. 90 tablet 3 12/12/2023 Active Comment on above: Take 1 tablet by maia th daily at bedtime. ALPRAZolam 1 mg oral tablet (20 sources) Benzodiazepine Start: 03-29-2024 End: 08-20-2024 take 1 tablet by mouth once daily as needed for anxiety ALPRAZolam (XANAX) 1 mg tablet Indications: Panic Take 1 tablet by mouth once daily as needed for anxiety for up to 30 days. Patient should start on July 21, 2024. 30 tablet 07/21/2024 08/20/2024 Active Start: 01-20-2024 End: 02-19-2024 take 1 tablet by mouth once daily as needed for anxiety ALPRAZolam (XANAX) 1 mg tablet Indications: Panic Take 1 tablet by mouth once daily as needed for anxiety for up to 30 days. 30 tablet 01/20/2024 02/19/2024 Active Start: 06-02-2023 End: 01-18-2024 take 1 tablet by mouth once daily as needed for anxiety ALPRAZolam (XANAX) 1 mg tablet Indications: Panic Take 1 tablet by mouth once daily as needed for anxiety for up to 30 days. 30 tablet 11/23/2023 01/18/2024 Discontinued Start: 10-01-2019 End: 05-18-2023 take 1 tablet by mouth once daily as needed for anxiety ALPRAZolam (XANAX) 1 mg tablet Indications: Panic Take 1 tablet by mouth once daily as needed for anxiety for up to 60 days. 30 tablet 0 05/02/2023 05/18/2023 Discontinued Comment on above: Take 1 tablet by maia th once daily as needed for anxiety for up to 60 days. Take 1 tablet by maia once daily as needed for anxiety for up to 60 days. Do not start before March 26, 2022. Take 1 tablet by maia once daily as needed for anxiety for up to 60 days. Do not start before November 19, 2022. Take 1 tablet by [facility] once daily as needed for anxiety for up to 30 days. Do not start before June 02, 2023. amoxicillin 500 mg oral capsule (8 sources) Penicillin-class Antibacterial Start: 01-23-20 End: 05-03-19 amoxicillin (AMOXIL) 500 mg capsule Take 4 capsules (2000 mg) 1 hour prior to procedure, then take 2 capsules (1000mg) 6 hours after procedure. 12 capsule 2 01/23/2024 05/03/2024 Discontinued amoxicillin 875 mg / clavulanate 125 mg oral tablet (1 source) Penicillin-class Antibacterial Start: 05-03-19 End: 05-10-19 take 1 tablet by mouth twice daily amoxicillin-clavulanat e potassium (AUGMENTIN) 875-125 mg per tablet Indications: Sinobronchitis Take 1 tablet by mouth two times a day for 7 days. 14 tablet 05/03/2024 05/10/2024 Active aspirin 81 mg delayed release oral tablet (20 sources) Platelet Aggregation Inhibitor, Nonsteroidal Anti-inflammatory Drug Start: 10-21-19 take 1 tablet by mouth twice daily aspirin, enteric coated (ASPIRIN, ENTERIC COATED) 81 mg EC tablet Take 1 tablet by mouth two times a day. 56 tablet 10/21/2023 Active Start: 05-18-2023 take 1 tablet by maia once daily aspirin, enteric coated (ASPIRIN, ENTERIC COATED) 81 mg EC tablet Take 1 tablet by mouth once daily. 0 05/18/2023 Active Start: 04-13-2018 End: 01-10-2023 take 1 tablet by mouth once daily aspirin, enteric coated (ECOTRIN LOW STRENGTH) 81 mg EC tablet Take 1 tablet by mouth once daily. 04/13/2018 01/10/2023 Discontinued End: 05-18-2023 aspirin 325 mg tablet Take 3 25 mg by mouth once daily. Taking 81 mg daily 0 05/18/2023 Discontinued Comment on above: Take 1 tablet by maia once daily. Take 325 mg by mouth once daily. Take 325 mg by mouth once daily. Taking 81 mg daily atorvastatin 20 mg oral tablet (20 sources) HMG-CoA Reductase Inhibitor Start: 10-01-19 End: 11-23-19 take 1 tablet by mouth at bedtime Atorvastatin 20 MG tablet Active 20 mg PO AT BEDTIME October 01, 2019 12:00am Comment on above: Take 1 tablet by [facility] once daily. celecoxib 200 mg oral capsule (20 sources) Nonsteroidal Anti-inflammatory Drug Start: 01-17-20 End: 04-10-19 take 1 capsule by mouth once daily at mealtime celecoxib (CELEBREX) 200 mg capsule take 1 capsule by mouth once daily with food 90 capsule 04/10/2024 Active Start: 10-21-2023 End: 06-05-2024 take 1 capsule by mouth twice daily celecoxib (CELEBREX) 100 mg capsule Take 1 capsule by mouth two times a day. 60 capsule 1 10/21/2023 06/05/2024 Discontinued cholecalciferol 0.05 mg oral capsule (20 sources) Vitamin D Start: 08-22-2018 take 1 capsule by mouth once daily Cholecalciferol, Vitamin D3, (VITAMIN D-3) 2,000 unit cap Indications: Vitamin D deficiency Take 1 capsule by mouth once daily. 08/22/2018 Active Comment on above: Take 1 capsule by [facility] once daily. doxycycline hyclate 100 mg oral capsule (5 sources) Tetracycline-class Drug Start: 10-21-2023 End: 11-11-2023 take 1 capsule by mouth every twelve hours in the morning, then take 6 capsules by mouth in the evening doxycycline hyclate (VIBRAMYCIN) 100 mg capsule Take 1 capsule (100 mg) by mouth every 12 hours at 6 am and 6 pm for 41 doses. 41 capsule 0 10/21/2023 11/11/2023 Active DULoxetine 30 mg delayed release oral capsule (2 sources) Serotonin and Norepinephrine Reuptake Inhibitor Start: 08-16-2024 take 1 capsule by mouth at bedtime Duloxetine 30 mg capsule,delayed release(DR/EC) Active 30 mg PO AT BEDTIME August 16, 2024 12:00am Start: 08-16-2024 take 1 capsule by [facility] once daily at bedtime Duloxetine 60 mg capsule,delayed release(DR/EC) Active 60 mg PO AT BEDTIME August 16, 2024 12:00am Begin after completing one week course of duloxetine 30mg nightly. ferrous sulfate 325 mg oral tablet (2 sources) Start: 10-21-2023 End: 10-28-2023 take 1 tablet by mouth once daily at lunch ferrous sulfate 325 mg (65 mg iron) tablet Take 1 tablet by mouth daily with lunch for 7 doses. 7 tablet 0 10/21/2023 10/28/2023 Active Inhalational Spacing Device (1 source) Start: 05-03-2024 End: 05-03-2024 Inhalational Spacing Device 1 Device one time only for 1 dose. 1 Each 05/03/2024 05/03/2024 Active lisinopril 10 mg oral tablet (20 sources) Angiotensin Converting Enzyme Inhibitor Start: 10-01-2019 End: 11-23-2023 take 1 tablet by mouth once daily lisinopril (ZESTRIL) 10 mg tablet Indications: Hypertension, essential Take 1 tablet by mouth once daily. 90 tablet 3 11/23/2023 Active Comment on above: Take 1 tablet by maia th once daily. meloxicam 15 mg oral tablet (3 sources) Nonsteroidal Anti-inflammatory Drug Start: 09-11-2020 End: 09-04-2021 take 1 tablet by mouth once daily at mealtime meloxicam (MOBIC) 15 mg tablet Take 1 tablet by mouth once daily. take with food 30 tablet 1 09/11/2020 09/04/2021 Discontinued (Course of therapy completed) Comment on above: Take 1 tablet by maia th once daily. take with food 24 hr metFORMIN hydrochloride 500 mg extended release oral tablet (20 sources) Biguanide Start: 05-29-2024 take 4 tablets by mouth once daily at breakfast metFORMIN ER (GLUCOPHAGE XR) 500 mg 24 hr tablet Take 4 tablets by mouth daily with breakfast. 360 tablet 3 05/29/2024 Active Start: 10-01-2019 End: 05-27-2024 take 4 tablets by mouth once daily at breakfast metFORMIN ER (GLUCOPHAGE XR) 500 mg 24 hr tablet Take 4 tablets by mouth daily with breakfast. 360 tablet 3 11/23/2023 05/27/2024 Discontinued take 1 tablet by maia th once daily METFORMIN HCL 500 MG TABS 1 tablet by mouth once a day metformin [id number] Clarice Garland LPN Comment on above: Take 1 tablet by maia th daily with breakfast. Take 2 tablets by mo uth daily with breakfast. Take 4 tablets by mo uth daily with breakfast. methylPREDNISolone (1 source) Corticosteroid Start : 05-03 End: 05-09 methylPREDNISolone (MEDROL, MITCHELL,) 4 mg Dose-Pack Indications: Sinobronchitis Follow dosing instructions, take with food. 21 tablet 05/03/2024 05/09/2024 Active omeprazole 20 mg delayed release oral capsule (20 sources) Proton Pump Inhibitor Start : 05-29 take 1 capsule by mouth once daily before breakfast omeprazole (PRILOSEC) 20 mg capsule Take 1 capsule by mouth daily before breakfast. 1/2 hr before meal. 90 capsule 1 05/29/2024 Active Start: 11-23-2023 End: 05-27-2024 take 1 capsule by mouth once daily before breakfast omeprazole (PRILOSEC) 20 mg capsule Take 1 capsule by mouth daily before breakfast. 1/2 hr before meal. 90 capsule 1 11/23/2023 05/27/2024 Discontinued Start: 10-21-2023 End: 11-23-2023 take 1 capsule by mouth once daily omeprazole (PRILOSEC) 40 mg capsule Take 1 capsule by mouth once daily. 30 capsule 10/21/2023 11/23/2023 Discontinued oxyCODONE hydrochloride 5 mg oral tablet (11 sources) Opioid Agonist Start: 11-17-2023 End: 12-08-2023 take 1 tablet by mouth every six hours as needed oxyCODONE IR (ROXICODONE) 5 mg immediate release tablet Indications: Status post total hip resurfacing , Acute post-operative pain Take 1 tablet by mouth every 6 hours as needed for up to 7 days. 28 tablet 12/01/2023 12/08/2023 Active Start: 10-21-2023 End: 11-11-2023 take 1 tablet by mouth every four hours as needed oxyCODONE IR (ROXICODONE) 5 mg immediate release tablet Indications: Status post total hip resurfacing Take 1 tablet by mouth every 4 hours as needed for up to 7 days. 42 tablet 0 11/04/2023 11/11/2023 Active perflutren lipid microsphere s 1.3 mL in NaCl (PF) 0.9% 10 mL injection (DEFINITY) (20 sources) Start: 01-26-2023 End: 04-26-2024 perflutren lipid microsphere s 1.3 mL in NaCl (PF) 0.9% 10 mL injection (DEFINITY) 125 ml sodium chloride 9 mg/ ml prefilled syringe (20 sources) Start: 01-26-2023 End: 04-26-2024 sodium chloride 0.9 % (flush ) 10 mL (BD POSIFLUSH) Completed/Discontinued Medications Medication Drug Class(es) Dates Sig (Normalized) Sig (Original) acetaminophen 500 mg oral tablet (8 sources) Start: 10-21-2023 End: 11-23-2023 take 2 tablets by mouth every eight hours acetaminophen (TYLENOL) 500 mg tablet Take 2 tablets by mouth every 8 hours. 90 tablet 1 10/21/2023 11/23/2023 Discontinued acetaminophen 325 mg / oxyCODONE hydrochloride 5 mg oral tablet (12 sources) Opioid Agonist Start: 12-31-2022 End: 05-18-2023 take 1 tablet by mouth every six hours as needed oxyCODONE-acetamino phen (PERCOCET) 5-325 mg tablet Take 1 tablet by mouth every 6 hours as needed. 0 12/31/2022 05/18/2023 Discontinued Start: 09-17-2021 End: 12-29-2021 take 1 tablet by mouth every six hours as needed oxyCODONE-acetaminophen (PERCOCET) 5-325 mg tablet Take 1 tablet by mouth every 6 hours as needed. 0 09/17/2021 12/29/2021 Discontinued Start: 10-01-2019 End: 10-04-2019 Oxycodone-Acetaminophen 1 TA BLET tablet Discontinued 1 {tbl} PO EVERY 6 HOURS NEEDED as needed for Pain 03 06October 01, 2019 October 03, 2019 12:00am October 04, 2019 12:02am Start: 10-01-2019 End: 10-04-2019 take 1 tablet by mouth every six hours as needed Oxycodone-Acetaminophen Discontinued 1 TABLET PO EVERY 6 HOURS NEEDED 03 06October 01, 2019 October 04, 2019 12:02am Comment on above: Take 1 tablet by maia every 6 hours as needed. [id number] 200 actuat albuterol 0.09 mg/actuat metered dose inhaler (4 sources) beta2-Adrenergic Agonist Start: End: take 2 puff(s) by inhalation every four hours as needed for wheezing albuterol HFA (PROVENTIL HFA, VENTOLIN HFA) 90 mcg/actuation inhaler Indications: Sinobronchitis Inhale 2 Puffs as instructed every 4 hours as needed for wheezing/shortness of breath. 1 Each 05/03/2024 06/05/2024 Discontinued ascorbic acid 500 mg oral tablet (7 sources) Vitamin C Start: End: take 1 tablet by mouth twice daily at mealtime ascorbic acid, vitamin C, (VITAMIN C) 500 mg tablet Take 1 tablet by mouth two times a day with meals for 27 doses. 27 tablet 10/21/2023 11/23/2023 Discontinued baclofen 10 mg oral tablet (20 sources) gamma-Aminobutyr ic Acid-ergic Agonist Start: End: take 1 tablet by mouth three times daily baclofen 10 mg tablet Indications: Status post total hip resurfacing take 1 tablet by mouth three times a day if needed muscle spasm 90 tablet 01/26/2024 06/05/2024 Discontinued Start: 10-21-2023 End: 11-23-2023 take 1 tablet by mouth three times daily baclofen 10 mg tablet Take 1 tablet by mouth three times a day. 90 tablet 10/21/2023 11/23/2023 Discontinued (Course of therapy completed) Start: 12-22-2022 End: 06-19-2023 take 1 tablet by mouth every eight hours for muscle spasms baclofen 10 mg tablet take 1 tablet by mouth every 8 hours if needed for muscle spasm 0 12/22/2022 06/19/2023 Discontinued Start: 09-16-2021 End: 03-12-2022 take 1 tablet by mouth every eight hours for muscle spasms baclofen (LIORESAL) 10 mg tablet take 1 tablet by mouth every 8 hours if needed for muscle spasm 0 09/16/2021 03/12/2022 Discontinued (Course of therapy completed) Comment on above: take 1 tablet by maia every 8 hours if needed for muscle spasm benzonatate 100 mg oral capsule (1 source) Non-narcotic Antitussive Start: 2022 End: 2022 take 1 capsule by mouth every eight hours as needed benzonatate (TESSALON PERLES) 100 mg capsule Take 1 capsule by mouth three times daily as needed for cough. 15 capsule 0 10/29/2022 11/12/2022 Discontinued (Course of therapy completed) Comment on above: Take 1 capsule by [facility] three times daily as needed for cough. calcium chloride 0.0014 meq/ml / potassium chloride 0.004 meq/ml / sodium chloride 0.103 meq/ml / sodium lactate 0.028 meq/ml injectable solution (1 source) Start: 2024 End: 2024 take 30 mL intravenously every hour 30 mL/hr, INTRAVENOUS, CONTINUOUS, Starting on Laura 4/3/25 at 0830, Until Laura 4/3/25 at 0943, Preprocedure cetirizine hydrochloride 10 mg oral tablet (15 sources) Histamine-1 Receptor Antagonist End: 2023 take 1 tablet by mouth once daily as needed cetirizine (ZYRTEC) 10 mg tablet Take 10 mg by mouth once daily as needed for cold/allergy symptoms. 12/26/2023 Discontinued (Course of therapy completed) diphenhydrAMINE (1 source) Histamine-1 Receptor Antagonist Start: 2024 End: 2024 12.5-50 mg, INTRAVENOUS, DIRECTED, Starting on Laura 4/3/25 at 0930, Until Laura 4/3/25 at 1329, DOSING DIRECTED BY PHYSICIAN FOR PROCEDURAL SEDATION ONLY, Intraprocedure 1 ml fentaNYL 0.05 mg/ml injection (1 source) Opioid Agonist Start: 2024 End: 2024 25-100 mcg, INTRAVENOUS, DIRECTED, Starting on Laura 4/3/25 at 0930, Until Laura 4/3/25 at 1329, DOSING DIRECTED BY PHYSICIAN FOR PROCEDURAL SEDATION ONLY, Intraprocedure iv contrast (will be provided with radiology test) (10 sources) Start: 2023 End: 2023 inject 1 dose intravenously once iv contrast (will be provided with radiology test) CTA Coronary. No IV access, insert saline lock prior to the sedation, infusion, injection for imaging exam. Discontinue saline lock post exam. If Pt. has a central line or IVAD, may access for administration according to line specific nursing protocol. Once exam is complete flush line and de-access according to line specific nursing protocol in the CT contrast administration guidelines link. 1 Each 0 06/06/2023 10/12/2023 Discontinued Start: 06-06-2023 inject 1 dose intravenously on ce iv contrast (will be provided with radiology test) CTA Coronary. No IV access, insert saline lock prior to the sedation, infusion, injection for imaging exam. Discontinue saline lock post exam. If Pt. has a central line or IVAD, may access for administration according to line specific nursing protocol. Once exam is complete flush line and de-access according to line specific nursing protocol in the CT contrast administration guidelines link. 1 Each 0 06/06/2023 Active Comment on above: CTA Coronary. No IV access, insert saline lock prior to the sedation, infusion, injection for imaging exam. Discontinue saline lock post exam. If Pt. has a central line or IVAD, may access for administration according to line specific nursing protocol. Once exam is complete flush line and de-access according to line specific nursing protocol in the CT contrast administration guidelines link. 10 ml lidocaine hydrochloride 10 mg/ml injection (2 sources) Antiarrhythmic, Amide Local Anesthetic Start: 05-12-19 End: 05-12-19 23 lidocaine (Xylocaine) 1 % injection 5 mL losartan potassium 25 mg oral tablet (4 sources) Angiotensin 2 Receptor Trinity Start: 12-22-19 23 End: 02-24-20 23 take 0.5 tablet by mouth once losartan (COZAAR) 25 mg tablet Take 0.5 tablets by mouth every afternoon. 0 12/21/2022 02/23/2023 Discontinued Comment on above: Take 0.5 tablets by mouth every afternoon. metoprolol tartrate 50 mg oral tablet (10 sources) beta-Adrenergic Trinity Start: 06-06-19 24 End: 10-12-19 24 metoprolol tartrate, short acting, (LOPRESSOR) 50 mg tablet Take one 50 mg tablet the evening prior to the CTA examination, take another 50 mg tablet the morning of the CTA examination. 2 tablet 0 06/06/2023 10/12/2023 Discontinued Comment on above: Take one 50 mg table t the evening prior to the CTA examination, take another 50 mg tablet the morning of the CTA examination. 5 ml midazolam 1 mg/ml injection (1 source) Benzodiazepine Start: 07-06-19 End: 07-06-19 1-5 mg, INTRAVENOUS, DIRECTED, Starting on Laura 07/05/24 at 0930, Until Laura 07/05/24 at 1329, DOSING DIRECTED BY PHYSICIAN FOR PROCEDURAL SEDATION ONLY, Intraprocedure naproxen 500 mg oral tablet (12 sources) Nonsteroidal Anti-inflammatory Drug Start: 12-22-19 End: 05-18-19 take 1 tablet by mouth once naproxen (NAPROSYN) 500 mg tablet Take 1 tablet by mouth every afternoon. 0 12/21/2022 05/18/2023 Discontinued Start: 09-16-2021 End: 03-12-2022 take 1 tablet by mouth once daily naproxen (NAPROSYN) 500 mg tablet Take 500 mg by mouth once daily. 0 09/16/2021 03/12/2022 Discontinued (Course of therapy completed) Comment on above: Take 500 mg by mouth once daily. Take 1 tablet by maia th every afternoon. nitroglycerin 0.3 mg sublingual tablet (9 sources) Nitrate Vasodilator Start: 06-06-19 End: 10-12-19 take 1 tablet under the tongue once nitroglycerin sublingual (NITROQUICK) 0.3 mg SL tablet Dissolve 1 tablet under the tongue one time only for 1 dose. To be administered in Radiology for CTA exam 1 tablet 0 06/06/2023 10/12/2023 Discontinued Comment on above: Dissolve 1 tablet un sky the tongue one time only for 1 dose. To be administered in Radiology for CTA exam 2 ml ondansetron 2 mg/ml injection (20 sources) Serotonin-3 Receptor Antagonist Start: 07-06-19 End: 07-06-19 4 mg, INTRAVENOUS, DIRECTED, Starting on Laura 07/05/24 at 0930, Until Laura 07/05/24 at 1329, Dosing as directed for intraprocedural use only, Intraprocedure Start: 10-21-2023 End: 11-23-2023 take 1 tablet by mouth every eight hours as needed ondansetron (ZOFRAN) 4 mg tablet Take 1 tablet by mouth every 8 hours as needed. 20 tablet 1 10/21/2023 11/23/2023 Discontinued (Course of therapy completed) Start: 12-22-2022 End: 05-18-2023 take 1 tablet by mouth every eight hours as needed ondansetron (ZOFRAN) 4 mg tablet Take 1 tablet by mouth every 8 hours as needed. 0 12/22/2022 05/18/2023 Discontinued Start: 10-01-2019 End: 03-12-2022 take 1 tablet by mouth every eight hours as needed for nausea Ondansetron 4 MG tablet Active 4 mg PO EVERY 8 HOURS NEEDED as needed for Nausea October 01, 2019 12:00am Comment on above: Take by mouth. Take 1 tablet by maia th every 8 hours as needed. tamsulosin hydrochloride 0.4 mg oral capsule (6 sources) alpha-Adrenergic Trinity Start: 2 End: 3 take 1 capsule by mouth once daily at bedtime tamsulosin (FLOMAX) 0.4 mg Indications: Acute retention of urine Take 1 capsule by mouth daily at bedtime. 90 capsule 3 10/15/2021 12/29/2021 Discontinued Comment on above: Take 1 capsule by [facility] daily at bedtime. UNABLE TO FIND CLINIC ADMINISTERED MED 0.5 mL (2 sources) Start: 3 End: 3 UNABLE TO FIND CLINIC ADMINISTERED MED 0.5 mL vitamin d3 (1 source) take 1 tablet by mouth once daily vitamin d3 1 tablet by mouth once a day vitamin d3 Clarice Garland LPN Problems Active Problems Problem Classification Problem Date Documented Da te Episodic/Chronic Abdominal pain (4 sources) Acute abdominal pain; Translations: [Left lower quadrant pain] 10-02-2019 Episodic Anxiety disorders (20 sources) Panic; Translations: [Panic disorder [episodic paroxysmal anxiety]] Onset: 5 Chronic Attention-deficit, conduct, and disruptive behavior disorders (20 sources) Attention deficit hyperactivity disorder, predominantly inattentive type; Translations: [Attention-deficit hyperactivity disorder, predominantly inattentive type] Onset: 6 12-19-2015 Chronic Cardiac dysrhythmias (20 sources) Paroxysmal atrial fibrillation; Translations: [Paroxysmal atrial fibrillation] Onset: 4 01-26-2023 Chronic Complications of surgical procedures or medical care (20 sources) Postoperative retention of urine; Translations: [Other postprocedural complications and disorders of genitourinary system] Onset: 4 09-25-2021 Episodic Coronary atherosclerosis and other heart disease (20 sources) Coronary arteriosclerosis; Translations: [Atherosclerotic heart disease of [place] coronary artery without angina pectoris] Onset: 4 08-25-2023 Chronic Deficiency and other anemia (1 source) Anemia; Translations: [Anemia, unspecified] 06-14-2023 Episodic Deficiency and other anemia (1 source) Anemia, unspecified; Translations: [Anemia, unspecified type] Onset: 4 Episodic Diabetes mellitus without complication (20 sources) Type 2 diabetes mellitus without complication; Translations: [Type 2 diabetes mellitus without complications] Onset: 8 03-07-2018 Chronic Disorders of lipid metabolism (20 sources) Hypertriglyceridemia; Translations: [Pure hyperglyceridemia] Onset: 9 08-06-2018 Chronic Esophageal disorders (1 source) Gastroesophageal reflux disease without esophagitis; Translations: [Gastro-esophageal reflux disease without esophagitis] 01-05-2024 Chronic Essential hypertension (20 sources) Essential hypertension; Translations: [Essential (primary) hypertension] Onset: 9 04-07-2018 Chronic Genitourinary symptoms and ill-defined conditions (3 sources) Acute retention of urine ; Translations: [Other retention of urine] Episodic Hyperplasia of prostate (20 sources) Benign prostatic hypertrophy with outflow obstruction; Translations: [Benign prostatic hyperplasia with lower urinary tract symptoms] Onset: 4 Chronic Immunizations and screening for infectious disease (15 sources) Patient encounter status; Translations: [Encounter for immunization] Onset: 5 Episodic Joint disorders and dislocations; trauma-related (1 source) Other articular cartilage disorders, right hip; Translations: [Articular cartilage disorder, pelvic region and thigh] Onset: 2 05-26-2021 Chronic Miscellaneous mental health disorders (20 sources) Body dysmorphic disorder; Translations: [Body dysmorphic disorder] Onset: 7 07-28-2016 Chronic Mood disorders (20 sources) Dysthymia; Translations: [Dysthymic disorder] Onset: 5 07-17-2014 Chronic Nutritional deficiencies (20 sources) Vitamin D deficiency; Translations: [Vitamin D deficiency, unspecified] Onset: 9 08-06-2018 Chronic Osteoarthritis (12 sources) Unilateral primary osteoarthritis, right hip; Translations: [Osteoarthritis of right hip joint] Onset: 3 Chronic Other aftercare (1 source) Other prison (current) drug therapy; Translations: [Long-term (current) use of other medications] 06-05-2024 Episodic Other connective tissue disease (11 sources) History of surface total hip arthroplasty; Translations: [Presence of unspecified artificial hip joint] 10-25-2023 Chronic Other connective tissue disease (1 source) History of repair of hip joint; Translations: [Presence of right artificial hip joint] 06-05-2024 Chronic Other connective tissue disease (1 source) Presence of unspecified artificial hip joint; Translations: [S/P total hip resurfacing] Onset: 4 Chronic Other connective tissue disease (1 source) Pain in left foot; Translations: [Pain in left foot] Onset: 5 Episodic Other ear and sense organ disorders (1 source) Impacted cerumen in right ear; Translations: [Impacted cerumen, right ear] 12-26-2023 Episodic Other gastrointestinal disorders (1 source) Irritable bowel syndrome with diarrhea; Translations: [Irritable bowel syndrome with diarrhea] 06-05-2024 Chronic Other lower respiratory disease (2 sources) Cough; Translations: [Acute cough] 04-25-2024 Episodic Other lower respiratory disease (2 sources) Rib pain; Translations: [Pleurodynia] 04-25-2024 Episodic Other nervous system disorders (20 sources) Neuropathy of lower limb; Translations: [Unspecified mononeuropathy of unspecified lower limb] Onset: 4 11-23-2023 Chronic Other nervous system disorders (1 source) Polyneuropathy, unspecified; Translations: [Polyneuropathy, unspecified] Onset: 5 Chronic Other nervous system disorders (1 source) Acute postoperative pain; Translations: [Other acute postprocedural pain] 12-01-2023 Episodic Other non-traumatic joint disorders (1 source) Other specified joint disorders, right hip; Translations: [Other specified disorders of joint, pelvic region and thigh] Onset: 2 04-10-2021 Episodic Other non-traumatic joint disorders (2 sources) Pain in right hip; Translations: [Pain in right hip] Onset: 3 Episodic Other nutritional; endocrine; and metabolic disorders (1 source) Gilbert's syndrome; Translations: [Gilbert syndrome] 06-05-2024 Chronic Other nutritional; endocrine; and metabolic disorders (4 sources) H/O: diabetes mellitus; Translations: [Personal history of other endocrine, nutritional and metabolic disease] 09-25-2021 Episodic Other screening for suspected conditions (not mental disorders or infectious disease) (5 sources) Screening due; Translations: [Encounter for screening, unspecified] Onset: 5 07-05-2024 Episodic Other upper respiratory infections (1 source) Chronic sinusitis; Translations: [Chronic sinusitis, unspecified] 05-03-2024 Chronic Residual codes; unclassified (5 sources) History of operative procedure on hip; Translations: [Other specified postprocedural states] Episodic Residual codes; unclassified (1 source) Pain; Translations: [Pain, unspecified] 09-11-2020 Episodic Residual codes; unclassified (1 source) Family history of epilepsy and other diseases of the nervous system; Translations: [Family history of epilepsy and other diseases of the nervous system] Onset: 5 Episodic Spondylosis; intervertebral disc disorders; other back problems (1 source) Cervical disc disorder with radiculopathy; Translations: [Cervical disc disorder with radiculopathy, unspecified cervical region] 01-05-2024 Episodic Unclassified (1 source) Acute cough; Translations: [Acute cough] Onset: 5 Unclassified (1 source) Low back pain, unspecified; Translations: [Low back pain, unspecified] Onset: 5 Past or Other Problems Problem Classification Problem Date Documented Da te Episodic/Chronic Calculus of urinary tract (20 sources) History of calculus of kidney; Translations: [Personal history of urinary calculi] Onset: 10-12-2023 10-12-2023 Episodic Nonspecific chest pain (20 sources) Atypical chest pain; Translations: [Other chest pain] Onset: 07-17-2015 Resolved: 09-04-2021 08-06-2018 Episodic Other liver diseases (20 sources) Increased bilirubin level; Translations: [Unspecified jaundice] Onset: 10-12-2023 10-12-2023 Episodic Other lower respiratory disease (1 source) Pleurodynia; Translations: [Rib pain on right side] Onset: 04-25-2024 Episodic Other non-traumatic joint disorders (4 sources) Pain in right knee; Translations: [Pain in joint, lower leg] Onset: 01-17-2024 01-10-2024 Episodic Other non-traumatic joint disorders (2 sources) Pain in right hip joint; Translations: [Pain in right hip] Episodic Other skin disorders (20 sources) Night sweats; Translations: [Generalized hyperhidrosis] Onset: 08-06-2018 08-06-2018 Episodic Residual codes; unclassified (20 sources) Family history of hemochromatosis; Translations: [Family history of other endocrine, nutritional and metabolic diseases] Onset: 07-16-2014 07-16-2014 Episodic Sprains and strains (11 sources) Other sprain of right hip, initial encounter; Translations: [Acetabular labrum tear] Onset: 04-29-2022 Episodic Unclassified (1 source) Problem Unclassified (2 sources) Patient encounter status 06-05-2024 Results Test Name Value Interpretation Reference Range Facility Neurology Visit Reporton Neurology Visit Report [facility] [address] [place] [address], [address] [place] [address] OFFICE VISIT Date of Service: 08/16/24 MR#: [id number] Acct: [id number] Name: GALA YUN Rep #: [id number] : 1980 Provider: Dr. Jesus nance MD Age/Sex: 44/M Location: [facility] Status: Signed with Addenda ADDENDUM by Dr. Jesus Peacock MD on 08/16/24 at 1339 Addendum Addendum (08/16/2024): Vitamin D, hemoglobin A1c, CBC, CMP (05/31/2024): Hemoglobin A1c 6.6 (high), glucose 160 (high) bilirubin 4 (high), cholesterol 98 (normal), triglycerides 90 (normal), HDL 40 (normal), LDL 40 (normal) The vitamin D level ordered on 08/16/2024 will be canceled. The patient states that customized left foot orthotics were not of benefit for his left foot pain. 08/16/24 1339 Date Jesus Peacock MD cc: DPManjit Knott; Dr. Vesta Stallworth MD * Signed HPI HPI Details: History: The patient is a 44-year-old right-handed male with a past medical history of hypertension, diabetes mellitus, hyperlipidemia, basal cell skin cancer status post excision, and 3 hip surgeries between 2021 and October 2023 who presents for evaluation of lower extremity neuropathy. He has been experiencing left foot pain since around 2021. The pain has a sharp character. The pain fluctuates in intensity. He also has numbness in the left foot. He had a left dorsal foot ganglion cyst excised in years past. His left foot pain is localized to the plantar aspect and lateral aspect of the left foot. The possibility of a left foot Pedraza's neuroma was raised in the past. He reports having a feeling of weakness in both feet that manifest with toe catching at times when he ambulates. He experiences only occasional low back pain. He is not experiencing radicular pain in the lower extremities. He has chronic neck pain and has had intermittent bilateral upper extremity radicular pain. 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 Mild slowing of the left peroneal conduction velocity at the fibular head was noted. Past Medical History: As above. There is no history of heart disease, lung disease, stroke, seizure, thyroid disease, renal disease, or sleep apnea. Social History: He quit smoking tobacco 20 years ago. There is no history of alcohol abuse. He uses marijuana. Family History: The patient's paternal great grandfather had a cerebral aneurysm. There is no family history of seizure. The patient's paternal grandmother and maternal grandmother had strokes. The patient's mother has Ugcsoiu-Ltcdq-Nrikz disease. Review of Systems: As above. The patient has not had any recent rash, weight change, chest pain, shortness of breath, gastrointestinal problems or urinary problems. He experiences some insomnia. He has anxiety. He had a transient fever with the flu that occurred in April 2024. He reports that he had a sleep study in years past and this did not reveal evidence of sleep apnea. Physical Exam: General: Well-developed, well-nourished male in no acute distress. Neuro: The patient is awake and alert and responds appropriately; speech is fluent; language function is within normal limits Cranial nerves: PERRL, 3mm bilaterally; EOMI; visual green are full; visual acuity is 20/25 bilaterally; face is symmetrical; tongue is midline; there are no deficits to pinprick Cerebellar system: No nystagmus or dysmetria Deep tendon reflexes: +2 at the right biceps, absent at the left biceps, brachioradialis bilaterally, triceps bilaterally, knees and ankles; plantar responses are downward bilaterally Motor: Strength 5/5 in the biceps bilaterally, abductor pollicis brevis muscles bilaterally, first dorsal interosseous muscles bilaterally, iliopsoas bilaterally, hamstrings bilaterally, foot plantar flexors bilaterally, extensor hallucis longus bilaterally, quadriceps bilaterally and foot dorsiflexors bilaterally; no drift Sensory: Decreased soft touch is noted over the lateral aspect of the left foot; decreased pinprick is noted in the feet; there are no deficits to vibration Gait: Unremarkable HEENT: Normocephalic; atraumatic; tympanic membranes are clear Neck: No bruits Heart: Regular rhythm and rate Extremities: No cyanosis or edema; no calf atrophy is noted; no high foot arches are noted; dorsalis pedis pulses are +2 bilaterally Supplemental Info EMG/nerve conduction studies (09/01/2023): Nerve Conduction Studies Summary: The left sural to radial sensory amplitude ratio was 0.155. The left peroneal motor conduction velocity was reduced at the fibular head. Nerve conduction studies were normal. Needle Examination Summary: Needle examination of select muscles of t (more content not included)... Normal [facility] CNNURSEon 07-24-2024 [facility] GALA YUN ([id number]) 1980 M Date Time Provider Department 07/24/24 8:00 AM ME NURSE FRITZ During your visit today, we recorded the following information about you: MYRNA HOLDEN 07/24/2024 7:56 AM Signed Patient presents for Hepatitis B vaccine. Denies any problems at this time. Tolerated injection well. Myrna Holden LPN Allergies As of Date: 07/24/2024 Noted Allergy Reaction PREDNISONE 01/16/2019 5 - Intolerance Comments: Did not tolerate and would not take again--not sure the exact adverse effect. Can take other steroids Date Reviewed: 07/05/2024 Reviewed by: Jose Luis Camilo RN - Fully Assessed Reason for Visit: Imm/Inj [58] Primary Visit Diagnosis:Encounter for immunization [Z23] Prescriptions as of 07/24/2024 - celecoxib (CELEBREX) 200 mg capsule take 1 capsule by mouth once daily with food - ALPRAZolam (XANAX) 1 mg tablet Take 1 tablet by mouth once daily as needed for anxiety for up to 30 days. Patient should start on July 21, 2024. - omeprazole (PRILOSEC) 20 mg capsule Take 1 capsule by mouth daily before breakfast. 1/2 hr before meal. - metFORMIN ER (GLUCOPHAGE XR) 500 mg 24 hr tablet Take 4 tablets by mouth daily with breakfast. - alfuzosin SR (UROXATRAL) 10 mg 24 hr tablet Take 1 tablet by mouth daily at bedtime. - lisinopril (ZESTRIL) 10 mg tablet Take 1 tablet by mouth once daily. - atorvastatin (LIPITOR) 20 mg tablet Take 1 tablet by mouth once daily. - aspirin, enteric coated (ASPIRIN, ENTERIC COATED) 81 mg EC tablet Take 1 tablet by mouth two times a day. - Cholecalciferol, Vitamin D3, (VITAMIN D-3) 2,000 unit cap Take 1 capsule by mouth once daily. - blood sugar diagnostic (BLOOD GLUCOSE TEST) test strip Test blood sugar(s) 1 times daily and as needed. Dx: Type 2 DM - Uncontrolled E11.9 Insulin: No - Lancets lancets Test blood sugar(s) 1 times daily. Dx: Type 2 DM - Uncontrolled E11.65 Insulin: No Problem List As Of Date 07/24/2024 Noted Resolved Panic [F41.0] 06/19/2014 Social phobia [F40.10] 06/19/2014 FH: hemochromatosis [Z83.49] 07/16/2014 Dysthymia [F34.1] 07/17/2014 Recurrent major depressive disorder, in partial*06/20/2015 Atypical chest pain [R07.89] 07/17/2015 09/04/2021 ADHD (attention deficit hyperactivity disorder)*12/19/2015 Body dysmorphic disorder [F45.22] 07/28/2016 Type 2 diabetes mellitus without complication, *03/07/2018 Hypertension, essential [I10] 04/07/2018 Night sweats [R61] 08/06/2018 Vitamin D deficiency [E55.9] 08/06/2018 Hypertriglyceridemia [E78.1] 08/06/2018 Coronary artery disease involving [place] zhang*10/12/2023 Postoperative retention of urine [N99.89, R33.8]10/12/2023 Benign prostatic hyperplasia with lower urinary*10/12/2023 Elevated bilirubin [R17] 10/12/2023 History of kidney stones [Z87.442] 10/12/2023 A-fib (HCC) [I48.91] 10/12/2023 Neuropathy of foot [G57.90] 11/23/2023 Screening for colon cancer [Z12.11] 07/05/2024 Encounter Status:Closed by MYRNA HOLDEN on 07/24/24 [facility] [id number] 07-05-2024 [id number] HNO ID: [id number] Author: KIM CAMARGO, DOLORES Service: ? Author Type: Registered Nurse Type: [id number] Filed: 07/05/2024 09:46 Note Text: The patient received a copy of Colonoscopy discharge instructions that contain information for how to contact the physician who performed the procedure and when to seek medical care. [facility] ANES POSTPROC EVALon 025 ANES POSTPROC EVAL HNO ID: [id number] Author: BRAYDEN HERRERA MD Service: Anesthesiology Author Type: Physician Type: Anesthesia Postprocedure Evaluation Filed: 07/05/2024 15:52 Note Text: POST ANESTHESIA EVALUATION NOTE : 1980 Procedure Summary Date: 07/05/24 Room / Location: [facility] Endoscopy Anesthesia Start: 1311 Anesthesia Stop: 1355 Procedure: COLONOSCOPY SCREENING Diagnosis: Screening due (Screening for colorectal malignant neoplasm) Scheduled Providers: Allie Adames DO; Brayden Herrera MD; Nisha Singh APRN.BAR MANAGER Responsible Provider: Brayden Herrera MD Anesthesia Type: MAC ASA Status: 3 Anesthesia Type: MAC Last Vitals Vitals Value Taken Time BP 158/96 07/05/24 1425 Temp 36.1 ?C (97 ?F) 07/05/24 1355 Pulse 76 07/05/24 1425 Resp 15 07/05/24 1425 SpO2 99 % 07/05/24 1425 Post Anesthesia Patient Status Patient Evaluation: PACU. PACU/ICU Patient Condition: stable. Anticipated Disposition: phase 2 then home. Neurological Status: aware and responsive. Pulmonary Status: breathing comfortably on room air Airway Control: returned to baseline unsupported. Cardiovascular Status: stable. Pain Management: clinically adequate - multimodal analgesia pain management approach Postoperative Hydration: acceptable. Intraoperative Events: no significant anesthesia events Recommendation: continue current plan of care. Anesthesia Observations No Documentation SIGNATURE: Brayden Herrera MD PATIENT NAME: Gala Yun DATE: July 05, 2024 TIME: 3:51 PM CSN: [id number] Normal [facility] ANES PRE-OPon 07-05-2024 ANES PRE-OP HNO ID: [id number] Author: BRAYDEN HERRERA MD Service: Anesthesiology Author Type: Physician Type: Anesthesia Preprocedure Evaluation Filed: 07/05/2024 12:57 Note Text: ANESTHESIOLOGY DAY OF SURGERY NOTE : 1980 Procedure Information Date/Time: 07/05/24 1330 Scheduled providers: Allie Adames DO; Brayden Herrera MD; Nisha Singh APRN.BAR MANAGER Procedure: COLONOSCOPY SCREENING Location: [facility] Endoscopy Estimated body mass index is 27.62 kg/m? as calculated from the following: Height as of this encounter: 198.1 cm (6' 6). Weight as of this encounter: 108.4 kg (239 lb). Most recent hematocrit and potassium results: Hematocrit 46.7 05/31/2024 Potassium 3.7 05/31/2024 Relevant Problems CARDIO (+) A-fib (HCC) (+) Coronary artery disease involving [place] coronary artery of [place] heart without angina pectoris (+) Hypertension, essential ENDO (+) Type 2 diabetes mellitus without complication, without long-term current use of insulin (HCC) NEURO-PSYCH (+) History of kidney stones I - PHYSICAL EVALUATION AIRWAY Patient intubated: No. Tracheostomy tube not present Mallampati: II. TM distance: >3 FB. Neck ROM: full ROM without neurological symptoms. Mouth opening: adequate. Short neck: no. Thick neck: no DENTAL Normal dental observations. Dental findings: teeth intact. Additional exam findings: no II - ANESTHESIA PLAN ASA Score: 3 Anesthetic Plan: MAC NPO Status: adequate Anesthetic plan additional comments: Had Postop urinary retention after hip surgery. He attempted to have colonoscopy at [place] under moderate sedation, but with maximum doses of meds, the was supposedly screaming and so they cancelled that procedure. He feels well now.. [facility] Monitoring Plan Monitoring plan: Standard ASA. Post Procedure Analgesic Plan Postoperative analgesic plan: parenteral or oral opioids and multimodal analgesia. Informed Consent Anesthetic risks, benefits, alternatives, personnel and consent discussed: yes. Patient / Responsible Alliance Party agrees to proceed: yes Patient / Surrogate agrees to blood products: blood products not planned DNR status not reviewed with patient and/or family prior to surgery. Significant changes in the patient condition since the History and Physical, not otherwise documented in primary service progress note: no. Potential Anesthesia issues that may suggest increased risk of complications or contraindication to planned procedure: none. Vitals Value Taken Time BP 129/86 07/05/24 1215 Pulse 61 07/05/24 1215 Resp 16 07/05/24 1215 Temp 36 ?C (96.8 ?F) 07/05/24 1215 SpO2 99 % 07/05/24 1215 Outpatient Medications as of 07/05/2024 Medication Sig ALPRAZolam (XANAX) 1 mg tablet Take 1 tablet by mouth once daily as needed for anxiety for up to 30 days. Patient should start on June 21, 2024. omeprazole (PRILOSEC) 20 mg capsule Take 1 capsule by mouth daily before breakfast. 1/2 hr before meal. metFORMIN ER (GLUCOPHAGE XR) 500 mg 24 hr tablet Take 4 tablets by mouth daily with breakfast. celecoxib (CELEBREX) 200 mg capsule take 1 capsule by mouth once daily with food (Patient not taking: Reported on 04/25/2024) alfuzosin SR (UROXATRAL) 10 mg 24 hr tablet Take 1 tablet by mouth daily at bedtime. lisinopril (ZESTRIL) 10 mg tablet Take 1 tablet by mouth once daily. atorvastatin (LIPITOR) 20 mg tablet Take 1 tablet by mouth once daily. aspirin, enteric coated (ASPIRIN, ENTERIC COATED) 81 mg EC tablet Take 1 tablet by mouth two times a day. Cholecalciferol, Vitamin D3, (VITAMIN D-3) 2,000 unit cap Take 1 capsule by mouth once daily. blood sugar diagnostic (BLOOD GLUCOSE TEST) test strip Test blood sugar(s) 1 times daily and as needed. Dx: Type 2 DM - Uncontrolled E11.9 Insulin: No Lancets lancets Test blood sugar(s) 1 times daily. Dx: Type 2 DM - Uncontrolled E11.65 Insulin: No Facility-Administered Medications as of 07/05/2024 Medication Dose Route Frequency fentaNYL 50 mcg/mL 25-100 mcg injection (SUBLIMAZE) 25-100 mcg INTRAVENOUS As Directed midazolam (PF) 1-5 mg injection (VERSED) 1-5 mg INTRAVENOUS As Directed diphenhydrAMINE 12.5-50 mg injection (BENADRYL) 12.5-50 mg INTRAVENOUS As Directed simethicone 20-40 mg oral liquid (MYLICON) 20-40 mg OTHER As Directed ondansetron (PF) 4 mg injection (ZOFRAN) 4 mg INTRAVENOUS As Directed I have interviewed and examined the patient. I have reviewed the medical record and/or the pre-anesthesia evaluation, pertinent labs, and test results. This contains updated information obtained within 48 hours of Surgery/Procedure. SIGNATURE: Brayden Herrera MD PATIENT NAME: Gala Yun DATE: July 05, 2024 TIME: 12:55 PM CSN: [id number] Normal [facility] Colonoscopyon 07-05-2024 Colonoscopy [facility] Gastrointestinal Endoscopy Patient Name: Gala Yun Procedure Date: 07/05/2024 12:57 PM Date of : 1980 Admit Type: Outpatient Age: 44 Room: [facility] Gender: Male Note Status: Finalized Attending MD: Allie Adames , , [id number] Procedure: Colonoscopy Indications: Screening for colorectal malignant neoplasm Providers: Allie Adames Patient Profile: This is a 44 year old male. Refer to note in patient chart for documentation of history and physical. Last Colonoscopy: none. The patient's first colonoscopy is today. Referring Physician: Allie Adames (Referring MD) Medicines: Monitored Anesthesia Care Complications: No immediate complications. Requesting Provider: Procedure: Pre-Anesthesia Assessment: - Prior to the procedure, a History and Physical was performed, and patient medications and allergies were reviewed. The patient is competent. The risks and benefits of the procedure and the sedation options and risks were discussed with the patient. All questions were answered and informed consent was obtained. Patient identification and proposed procedure were verified by the physician, the nurse, the anesthesiologist and the air pollution auditor in the pre-procedure area in the endoscopy suite. Mental Status Examination: alert and oriented. Airway Examination: normal oropharyngeal airway and neck mobility. Respiratory Examination: clear to auscultation. CV Examination: normal. Prophylactic Antibiotics: The patient does not require prophylactic antibiotics. Prior Anticoagulants: The patient has taken no anticoagulant or antiplatelet agents except for aspirin. ASA Grade Assessment: III - A patient with severe systemic disease. After reviewing the risks and benefits, the patient was deemed in satisfactory condition to undergo the procedure. The anesthesia plan was to use monitored anesthesia care (MAC). Immediately prior to administration of medications, the patient was re-assessed for adequacy to receive sedatives. The heart rate, respiratory rate, oxygen saturations, blood pressure, adequacy of pulmonary ventilation, and response to care were monitored throughout the procedure. The physical status of the patient was re-assessed after the procedure. After I obtained informed consent, the scope was passed under direct vision. Throughout the procedure, the patient's blood pressure, pulse, and oxygen saturations were monitored continuously. The Colonoscope was introduced through the anus and advanced to the cecum, identified by appendiceal orifice and ileocecal valve. The colonoscopy was performed without difficulty. The patient tolerated the procedure well. The quality of the bowel preparation was adequate to identify polyps. The ileocecal valve, appendiceal orifice, and rectum were photographed. Scope Withdrawal Time: 0 hours 15 minutes 14 seconds Moderate Sedation: See the other procedure note for documentation of moderate sedation with intraservice time. MAC anesthesia was administered by the anesthesia team. Total Procedure Duration: 0 hours 24 minutes 2 seconds Findings: The perianal and digital rectal examinations were normal. Scattered mild inflammation characterized by erythema was found in the rectum, in the sigmoid colon, in the ascending colon and in the cecum. Biopsies for histology were taken with a cold forceps from the entire colon for evaluation of microscopic colitis. Verification of patient identification for the specimen was done. Estimated blood loss was minimal. A 2 mm polyp was found in the sigmoid colon. The polyp was sessile. The polyp was removed with a cold biopsy forceps. Resection and retrieval were complete. Estimated blood loss was minimal. Non-bleeding internal hemorrhoids were found during retroflexion. The hemorrhoids were small and Grade I (internal hemorrhoids that do not prolapse). The exam was otherwise without abnormality. Impression: - Scattered mild inflammation was found in the rectum, in the sigmoid colon, in the ascending colon and in the cecum secondary to colitis. Biopsied. - One 2 mm polyp in the sigmoid colon, removed with a cold biopsy forceps. Resected and retrieved. - Non-bleeding internal hemorrhoids. - The examination was otherwise normal. Recommendation: - Patient has a contact number available for emergencies. The signs and symptoms of potential delayed complications were discussed with the patient. Return to normal activities tomorrow. Written discharge instructions were provided to the patient. - Discharge patient to home. - Resume previous diet. - Continue present medications. - Await pathology results. - Repeat colonoscopy in 7-10 years for surveillance. - Return to referring physician as previously scheduled. - Resume aspirin at prior dose. Refer to primary physician for further (more content not included)... Normal [facility] Colonoscopy [facility] Gastrointestinal Endoscopy Patient Name: Gala Yun Procedure Date: 07/05/2024 8:51 AM Date of : 1980 Admit Type: Outpatient Age: 44 Gender: Male Note Status: Finalized Procedure: Colonoscopy Indications: Screening for colorectal malignant neoplasm Providers: Anthony Martinez MD Patient Profile: This is a 44 year old male. Refer to note in patient chart for documentation of history and physical. Last Colonoscopy: none. The patient's first colonoscopy is today. Referring Physician: Vesta Stallworth (Referring MD) Medicines: Fentanyl 100 micrograms IV, Midazolam 9 mg IV, Diphenhydramine 50 mg IV, Ondansetron 4 mg IV Complications: No immediate complications. Estimated blood loss: None. Requesting Provider: Procedure: Pre-Anesthesia Assessment: - Prior to the procedure, a History and Physical was performed, and patient medications and allergies were reviewed. The patient's tolerance of previous anesthesia was also reviewed. The risks and benefits of the procedure and the sedation options and risks were discussed with the patient. All questions were answered, and informed consent was obtained. Prior Anticoagulants: The patient has taken no anticoagulant or antiplatelet agents except for aspirin. ASA Grade Assessment: II - A patient with mild systemic disease. After reviewing the risks and benefits, the patient was deemed in satisfactory condition to undergo the procedure. After I obtained informed consent, the scope was passed under direct vision. Throughout the procedure, the patient's blood pressure, pulse, and oxygen saturations were monitored continuously. The Colonoscope was introduced through the anus with the intention of advancing to the cecum. The scope was advanced to the sigmoid colon before the procedure was aborted. Medications were given. The colonoscopy was aborted due to the extreme difficulty of the procedure. Increasing the dose of sedation medication did not allow for the successful completion of the procedure. The colonoscopy was extremely difficult due to the patient's excessive discomfort during the procedure. The patient tolerated the procedure. The quality of the bowel preparation was good. No anatomical landmarks were photographed. Moderate Sedation: The administration of moderate sedation was initiated at 09:12. Moderate (conscious) sedation was personally administered by the endoscopist. The following parameters were monitored: oxygen saturation, heart rate, blood pressure, respiratory rate, EKG, adequacy of pulmonary ventilation, and response to care. Total physician intraservice time was 5 minutes. Findings: The perianal and digital rectal examinations were normal. Impression: - The procedure was aborted due to the extreme difficulty of the procedure. - No specimens collected. Recommendation: - Patient has a contact number available for emergencies. The signs and symptoms of potential delayed complications were discussed with the patient. Return to normal activities tomorrow. Written discharge instructions were provided to the patient. - Resume previous diet. - Continue present medications. - Repeat colonoscopy at appointment to be scheduled because the examination was incomplete. - Return to primary care physician PRN. - Resume previous antiplatelet medication today at prior dose. Procedure Code(s): --- Professional --- 49438, 53, Colonoscopy, flexible; diagnostic, including collection of specimen(s) by brushing or washing, when performed (separate procedure) Diagnosis Code(s): --- Professional --- Z12.11, Encounter for screening for malignant neoplasm of colon CPT copyright 2020 [employer]. All rights reserved. The codes documented in this report are preliminary and upon reverse unit operator review may be revised to meet current compliance requirements. Attending Participation: I personally performed the entire procedure. Scope In: 9:13:45 AM Scope Out: 9:17:45 AM MD Anthony Herring MD 07/05/2024 9:24:08 AM This report has been signed electronically by Anthony Martinez MD Number of Addenda: 0 Note Initiated On: 07/05/2024 8:51 AM Estimated Blood Loss: Estimated blood loss: none. Normal [facility] Colonoscopy Study observatio non 07-05-2024 [facility] Gastrointestinal Endoscopy Patient Name: Gala Yun Procedure Date: 07/05/2024 12:57 PM Date of : 1980 Admit Type: Outpatient Age: 44 Room: [facility] Gender: Male Note Status: Finalized Attending MD: Allie Adames , , [id number] Procedure: Colonoscopy Indications: Screening for colorectal malignant neoplasm Providers: Allie Adames Patient Profile: This is a 44 year old male. Refer to note in patient chart for documentation of history and physical. Last Colonoscopy: none. The patient's first colonoscopy is today. Referring Physician: Allie Adames (Referring MD) Medicines: Monitored Anesthesia Care Complications: No immediate complications. Requesting Provider: Procedure: Pre-Anesthesia Assessment: - Prior to the procedure, a History and Physical was performed, and patient medications and allergies were reviewed. The patient is competent. The risks and benefits of the procedure and the sedation options and risks were discussed with the patient. All questions were answered and informed consent was obtained. Patient identification and proposed procedure were verified by the physician, the nurse, the anesthesiologist and the air pollution auditor in the pre-procedure area in the endoscopy suite. Mental Status Examination: alert and oriented. Airway Examination: normal oropharyngeal airway and neck mobility. Respiratory Examination: clear to auscultation. CV Examination: normal. Prophylactic Antibiotics: The patient does not require prophylactic antibiotics. Prior Anticoagulants: The patient has taken no anticoagulant or antiplatelet agents except for aspirin. ASA Grade Assessment: III - A patient with severe systemic disease. After reviewing the risks and benefits, the patient was deemed in satisfactory condition to undergo the procedure. The anesthesia plan was to use monitored anesthesia care (MAC). Immediately prior to administration of medications, the patient was re-assessed for adequacy to receive sedatives. The heart rate, respiratory rate, oxygen saturations, blood pressure, adequacy of pulmonary ventilation, and response to care were monitored throughout the procedure. The physical status of the patient was re-assessed after the procedure. After I obtained informed consent, the scope was passed under direct vision. Throughout the procedure, the patient's blood pressure, pulse, and oxygen saturations were monitored continuously. The Colonoscope was introduced through the anus and advanced to the cecum, identified by appendiceal orifice and ileocecal valve. The colonoscopy was performed without difficulty. The patient tolerated the procedure well. The quality of the bowel preparation was adequate to identify polyps. The ileocecal valve, appendiceal orifice, and rectum were photographed. Scope Withdrawal Time: 0 hours 15 minutes 14 seconds Moderate Sedation: See the other procedure note for documentation of moderate sedation with intraservice time. MAC anesthesia was administered by the anesthesia team. Total Procedure Duration: 0 hours 24 minutes 2 seconds Findings: The perianal and digital rectal examinations were normal. Scattered mild inflammation characterized by erythema was found in the rectum, in the sigmoid colon, in the ascending colon and in the cecum. Biopsies for histology were taken with a cold forceps from the entire colon for evaluation of microscopic colitis. Verification of patient identification for the specimen was done. Estimated blood loss was minimal. A 2 mm polyp was found in the sigmoid colon. The polyp was sessile. The polyp was removed with a cold biopsy forceps. Resection and retrieval were complete. Estimated blood loss was minimal. Non-bleeding inter (more content not included)... [facility] Gastrointestinal Endoscopy Patient Name: Gala Yun Procedure Date: 07/05/2024 8:51 AM Date of : 1980 Admit Type: Outpatient Age: 44 Gender: Male Note Status: Finalized Procedure: Colonoscopy Indications: Screening for colorectal malignant neoplasm Providers: Anthony Martinez MD Patient Profile: This is a 44 year old male. Refer to note in patient chart for documentation of history and physical. Last Colonoscopy: none. The patient's first colonoscopy is today. Referring Physician: Vesta Stallworth (Referring MD) Medicines: Fentanyl 100 micrograms IV, Midazolam 9 mg IV, Diphenhydramine 50 mg IV, Ondansetron 4 mg IV Complications: No immediate complications. Estimated blood loss: None. Requesting Provider: Procedure: Pre-Anesthesia Assessment: - Prior to the procedure, a History and Physical was performed, and patient medications and allergies were reviewed. The patient's tolerance of previous anesthesia was also reviewed. The risks and benefits of the procedure and the sedation options and risks were discussed with the patient. All questions were answered, and informed consent was obtained. Prior Anticoagulants: The patient has taken no anticoagulant or antiplatelet agents except for aspirin. ASA Grade Assessment: II - A patient with mild systemic disease. After reviewing the risks and benefits, the patient was deemed in satisfactory condition to undergo the procedure. After I obtained informed consent, the scope was passed under direct vision. Throughout the procedure, the patient's blood pressure, pulse, and oxygen saturations were monitored continuously. The Colonoscope was introduced through the anus with the intention of advancing to the cecum. The scope was advanced to the sigmoid colon before the procedure was aborted. Medications were given. The colonoscopy was aborted due to the extreme difficulty of the procedure. Increasing the dose of sedation medication did not allow for the successful completion of the procedure. The colonoscopy was extremely difficult due to the patient's excessive discomfort during the procedure. The patient tolerated the procedure. The quality of the bowel preparation was good. No anatomical landmarks were photographed. Moderate Sedation: The administration of moderate sedation was initiated at 09:12. Moderate (conscious) sedation was personally administered by the endoscopist. The following parameters were monitored: oxygen saturation, heart rate, blood pressure, respiratory rate, EKG, adequacy of pulmonary ventilation, and response to care. Total physician intraservice time was 5 minutes. Findings: The perianal and digital rectal examinations were normal. Impression: - The procedure was aborted due to the extreme difficulty of the procedure. - No specimens collected. Recommendation: - Patient has a contact number available for emergencies. The signs and symptoms of potential delayed complications were discussed with the patient. Return to normal activities tomorrow. Written discharge instructions were provided to the patient. - Resume previous diet. - Continue present medications. - Repeat colonoscopy at appointment to be scheduled because the examination was incomplete. - Return to primary care physician PRN. - Resume previous antiplatelet medication today at prior dose. Procedure Code(s): --- Professional --- 00153, 53, Colonoscopy, flexible; diagnostic, including collection of specimen(s) by brushing or washing, when performed (separate procedure) Diagnosis Code(s): --- Professional --- Z12.11, [place] (more content not included)... PROVATION [facility] Radiology Study observation (narrative) [facility] Radiology Study observation (narrative) [facility] GLUCOSE, BLOOD (POC)on 07-05 Glucose [Mass/Vol] 100 mg/dL Abnormal 74 - 99 mg/dL [facility] Comment on above: Location[place] [place], [place], [facility] The Accu-Chek Inform II glucose meter has not been approved for testing on patients receiving intensive medical intervention or therapy and results from this point of care glucose test should not be used for patient management decisions in these cases. Inaccurate results may also occur from other interfering factors, such as N-acetylcysteine (blood concentrations of greater than 5mg/dL), galactose, extremes of hematocrit (<10 or >65), or high doses of ascorbic acid (vitamin C) greater than 3mg/dL. Consider alternate testing mechanisms (e.g. core lab, blood gas instrument) in the above situations. Interpretation and review of laboratory results Abnormal [facility] Glucose [Mass/Vol] 104 mg/dL Abnormal 74 - 99 mg/dL [facility] Comment on above: Location:[facility] [place], [place], [address] The Accu-Chek Inform II glucose meter has not been approved for testing on patients receiving intensive medical intervention or therapy and results from this point of care glucose test should not be used for patient management decisions in these cases. Inaccurate results may also occur from other interfering factors, such as N-acetylcysteine (blood concentrations of greater than 5mg/dL), galactose, extremes of hematocrit (<10 or >65), or high doses of ascorbic acid (vitamin C) greater than 3mg/dL. Consider alternate testing mechanisms (e.g. core lab, blood gas instrument) in the above situations. Interpretation and review of laboratory results Abnormal [facility] HISTORY PHYSICALon HISTORY PHYSICAL HNO ID: [id number] Author: ANTHONY MARTINEZ MD Service: General Surgery Author Type: Physician Type: H&P Filed: 07/05/2024 08:58 Note Text: SUBJECTIVE: Gala Yun is a 44 year old year old gentleman here today for 6 month follow up appointment for review of medical conditions. Gala Yun is a 44-year-old male with a history of DM, presenting for a 6-month follow-up. Gala reports a recent increase in HbA1c to 6.6%, the highest it has been in a while. He attributes this to poor dietary choices and reduced exercise during the holidays, as well as a recent illness for which he was prescribed steroids and antibiotics. He notes the appearance of dark spots on his shins around [place], which he associates with his diabetes. He is currently exercising 5-6 days a week and aims to improve his diet to lower his HbA1c to around 5.5%. His previous HbA1c was 5.8%. Gala expresses concern about the efficacy of his medications, noting that he takes all his medications in the morning with breakfast and has observed what appears to be whole pills in his stool. He questions whether he is receiving the full benefit of his medications, particularly metformin and Prilosec. He also inquires about the significance of his LDL cholesterol levels, which are below the threshold, and whether this could indicate another problem. Gala has a history of hip surgery and reports significant improvement in mobility and pain since the surgery. He is now able to perform squats and walk without pain, activities he has not been able to do for 5 years. He also reports a history of neuropathy in his left foot, characterized by tingling and burning sensations, and is scheduled to see a neurologist. Gala has a history of prostatitis and is currently on alfuzosin. He inquires about the need for a colonoscopy now that he is 44 years old and expresses concern about the procedure. He also asks about the need for a measles booster given recent outbreaks. Gala reports a history of flu-like symptoms, including high fever, body aches, and fatigue, but denies COVID-19. He is unsure if he received a flu shot in 2023. He also inquires about the need for a hepatitis B vaccination. PAST MEDICAL HISTORY PAST MEDICAL HISTORY Diagnosis Date Atypical chest pain 07/17/2015 Diabetes (HCC) Elevated bilirubin ?chronic versus intermittent mild elevation sicne childhood--benign condition Hyperlipidemia Kidney stone on left side had to have blasted and stented (treated Dr. Mittal) Vitamin D deficiency CURRENT MEDICATIONS Current Outpatient Medications Medication Sig celecoxib (CELEBREX) 200 mg capsule take 1 capsule by mouth once daily with food (Patient not taking: Reported on 04/25/2024) omeprazole (PRILOSEC) 20 mg capsule Take 1 capsule by mouth daily before breakfast. 1/2 hr before meal. metFORMIN ER (GLUCOPHAGE XR) 500 mg 24 hr tablet Take 4 tablets by mouth daily with breakfast. ALPRAZolam (XANAX) 1 mg tablet Take 1 tablet by mouth once daily as needed for anxiety for up to 30 days. albuterol HFA (PROVENTIL HFA, VENTOLIN HFA) 90 mcg/actuation inhaler Inhale 2 Puffs as instructed every 4 hours as needed for wheezing/shortness of breath. baclofen 10 mg tablet take 1 tablet by mouth three times a day if needed muscle spasm (Patient not taking: Reported on 05/03/2024) alfuzosin SR (UROXATRAL) 10 mg 24 hr tablet Take 1 tablet by mouth daily at bedtime. lisinopril (ZESTRIL) 10 mg tablet Take 1 tablet by mouth once daily. atorvastatin (LIPITOR) 20 mg tablet Take 1 tablet by mouth once daily. aspirin, enteric coated (ASPIRIN, ENTERIC COATED) 81 mg EC tablet Take 1 tablet by mouth two times a day. celecoxib (CELEBREX) 100 mg capsule Take 1 capsule by mouth two times a day. Cholecalciferol, Vitamin D3, (VITAMIN D-3) 2,000 unit cap Take 1 capsule by mouth once daily. blood sugar diagnostic (BLOOD GLUCOSE TEST) test strip Test blood sugar(s) 1 times daily and as needed. Dx: Type 2 DM - Uncontrolled E11.9 Insulin: No Lancets lancets Test blood sugar(s) 1 times daily. Dx: Type 2 DM - Uncontrolled E11.65 Insulin: No No current facility-administered medications for this visit. Review of Systems Objective BP 118/70 Pulse 98 Wt 108.7 kg (239 lb 10.2 oz) SpO2 98% BMI 27.70 kg/m? Last 5 Encounter Wt Readings: Date: Wt: 06/05/2024 108.7 kg (239 lb 10.2 oz) 05/03/2024 109.1 kg (240 lb 8.4 oz) 04/25/2024 110.9 kg (244 lb 7.8 oz) 01/17/2024 108.9 kg (240 lb) 12/26/2023 109.4 kg (241 lb 2.9 oz) No waist measurement recorded Estimated body mass index is 27.7 kg/m? as calculated from the following: Height as of 10/20/23: 198.1 cm (6' 5.99). Weight as of this encounter: 108.7 kg (239 lb 10.2 oz). Last 5 Encounter BP Readings: Date: BP: 06/05/2024 118/70 05/03/2024 122/76 04/25/2024 122/72 12/26/2023 122/72 11/23/2023 118/82 Physical Exam Vitals reviewed. Constitutional: Appea (more content not included)... Normal [facility] NURSING PROGon 07-05-2024 NURSING PROG HNO ID: [id number] Author: JOSE LUIS CAMILO RN Service: Nursing Author Type: Registered Nurse Type: Nursing Progress Note Filed: 07/05/2024 15:33 Note Text: Pt expressed concern regarding urinary retention with history after anesthesia. Pt attempted to void without success. Pt bladder scanned for [address] Adames at bedside with patient. Educated pt he is likely dehydrated from the bowel prep. Instructed patient if he has not voided by 7-8 pm or is having extreme discomfort, present to ED. Pt and expressed understanding and discharged without difficulty. [facility] Pathology biopsy report Pravin (Tiss)on 07-05-2024 AP DISCLAIMER [facility] Comment on above: Order Comment: Speci men Type: TISSUE SPECIMEN Ordering Facility: [facility] Address: [address] [place] [address] Result Comment: Roshni guthrie Developed Test (LDT) Disclaimer: Performance characteristics of immunohistochemical, immunofluorescent, and chromogenic in-situ hybridization tests have been determined by the performing laboratory within [facility]'s [facility] Pathology and Laboratory Medicine Department ([facility], [facility], [facility], [facility], [facility], [facility], or [facility]) in a manner consistent with CLIA requirements. One or more of these tests may not have been cleared or approved by the FDA. [facility] is regulated under CLIA as qualified to perform high-complexity testing. These tests are used for clinical purposes. These should not be regarded as investigational or for research. Positive and negative controls stain appropriately. Performed By: #### 6 [id number] #### [facility] CLIA [id number] [address] [place] [address] [place] CASE REPORT Normal [facility] Comment on above: Order Comment: Aryan iniguez Type: TISSUE SPECIMEN Ordering Facility: [facility] Address: [address] [place] [address] Result Comment: [facility] Pathology Report Case: [id number] Authorizing Provider: Allie Adames DO Collected: 07/05/2024 01:39 PM Ordering Location: [facility] Endoscopy Received: 07/05/2024 03:21 PM Pathologist: Cherise Short MD Specimens: A) - Colon, Biopsy, r/o micro colitis,IBS B) - Colon, Sigmoid, Polyp Performed By: #### 6 6121-5 #### [facility] CLIA [id number] [address] [place] [address] [place] FINAL DIAGNOSIS Normal [facility] Comment on above: Order Comment: Aryan iniguez Type: TISSUE SPECIMEN [facility] Facility[facility] Address: [address] [place] [address] Result Comment: A. C olon, biopsy -Colonic mucosa with no significant histopathologic changes. B. Colon, sigmoid, polyp, polypectomy -Tubular adenoma at 1456 EDT Performed By: #### 6 6121-5 #### [facility] CLIA [id number] [address] [place] [address] [place] [facility] FINAL PERFORMING LAB [facility] Comment on above: Order Comment: Speci men Type: TISSUE SPECIMEN [facility] Facility[facility] Address: [address] [place] [address] Result Comment: Diag nostic interpretation performed at: [facility], [address] [place] [address] CLIA# [id number] Treasurer: Ilir Han MD Performed By: #### 6 6121-5 #### [facility] CLIA [id number] [address] [place] [address] GROSS DESCRIPTION [facility] Comment on above: Order Comment: Speci geetha Type: TISSUE SPECIMEN [facility] Facility[facility] Address: [address] [place] [address] Result Comment: A. C olon, Biopsy Received in formalin are multiple pieces of colby-brown, soft tissue aggregating to 1.7 x 1.0 x 0.1 cm. Totally submitted in three cassettes. B. Colon, Sigmoid, Polyp Received in formalin is one piece of colby-brown, soft tissue measuring 0.2 x 0.2 x 0.2 cm. Totally submitted in one cassette. Gross examination performed at [facility], [address] [place] [address] July 05, 2024 8:15 PM Performed By: #### 6 6121-5 #### [facility] CLIA [id number] [address] [place] [place] [address] CNNURSEon 06-19-2024 [facility] Nurse Visit (FAMPWS) GALA YUN ([id number]) 1980 M Date Time Provider Department 06/19/24 8:00 AM ME NURSE FAMPWS During your visit today, we recorded the following information about you: ISABEL MYRNA 06/19/2024 8:06 AM Signed Patient presents for Hepatitis B vaccine. Denies any problems at this time. Tolerated injection well. Myrna Holden LPN Allergies As of Date: 06/19/2024 Noted Allergy Reaction PREDNISONE 01/16/2019 5 - Intolerance Comments: Did not tolerate and would not take again--not sure the exact adverse effect. Can take other steroids Date Reviewed: 06/05/2024 Reviewed by: Kate Sarah LPN - Fully Assessed Reason for Visit: Imm/Inj [58] Primary Visit Diagnosis:Encounter for immunization [Z23] Prescriptions as of 06/19/2024 - celecoxib (CELEBREX) 200 mg capsule take 1 capsule by mouth once daily with food - ALPRAZolam (XANAX) 1 mg tablet Take 1 tablet by mouth once daily as needed for anxiety for up to 30 days. Patient should start on June 21, 2024. - omeprazole (PRILOSEC) 20 mg capsule Take 1 capsule by mouth daily before breakfast. 1/2 hr before meal. - metFORMIN ER (GLUCOPHAGE XR) 500 mg 24 hr tablet Take 4 tablets by mouth daily with breakfast. - alfuzosin SR (UROXATRAL) 10 mg 24 hr tablet Take 1 tablet by mouth daily at bedtime. - lisinopril (ZESTRIL) 10 mg tablet Take 1 tablet by mouth once daily. - atorvastatin (LIPITOR) 20 mg tablet Take 1 tablet by mouth once daily. - aspirin, enteric coated (ASPIRIN, ENTERIC COATED) 81 mg EC tablet Take 1 tablet by mouth two times a day. - Cholecalciferol, Vitamin D3, (VITAMIN D-3) 2,000 unit cap Take 1 capsule by mouth once daily. - blood sugar diagnostic (BLOOD GLUCOSE TEST) test strip Test blood sugar(s) 1 times daily and as needed. Dx: Type 2 DM - Uncontrolled E11.9 Insulin: No - Lancets lancets Test blood sugar(s) 1 times daily. 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] 07/28/2016 Type 2 diabetes mellitus without complication, *03/07/2018 Hypertension, essential [I10] 04/07/2018 Night sweats [R61] 08/06/2018 Vitamin D deficiency [E55.9] 08/06/2018 Hypertriglyceridemia [E78.1] 08/06/2018 Coronary artery disease involving [place] zhang*10/12/2023 Postoperative retention of urine [N99.89, R33.8]10/12/2023 Benign prostatic hyperplasia with lower urinary*10/12/2023 Elevated bilirubin [R17] 10/12/2023 History of kidney stones [Z87.442] 10/12/2023 A-fib (HCC) [I48.91] 10/12/2023 Neuropathy of foot [G57.90] 11/23/2023 Encounter Status:Closed by MYRNA HOLDEN on 06/19/24 [facility] 06-12-2024 CNPN Telephone (INTMWS) GALA YUN ([id number]) 1980 M Date Time Provider Department 06/12/24 VESTA STALLWORTH INTMWS During your visit today, we recorded the following information about you: MYRNA HOLDEN 06/12/2024 12:48 PM Signed Patient scheduled for nurse visit 07/20/24 to receive Hepatitis B vaccine. Please place order at this time. Myrna Holden LPN Allergies As of Date: 06/12/2024 Noted Allergy Reaction PREDNISONE 01/16/2019 5 - Intolerance Comments: Did not tolerate and would not take again--not sure the exact adverse effect. Can take other steroids Date Reviewed: 06/05/2024 Reviewed by: Kate Sarah LPN - Fully Assessed Reason for Visit: Orders [681] Primary Visit Diagnosis:Need for vaccination [Z23] Order(s):HEP B VACCINE, 3-DOSE, AGE 20+ YR (ENGERIX-B, RECOMBIVAX HB) [[id number]] Order #: [id number] Prescriptions as of 06/13/2024 - celecoxib (CELEBREX) 200 mg capsule take 1 capsule by mouth once daily with food - ALPRAZolam (XANAX) 1 mg tablet Take 1 tablet by mouth once daily as needed for anxiety for up to 30 days. Patient should start on June 21, 2024. - omeprazole (PRILOSEC) 20 mg capsule Take 1 capsule by mouth daily before breakfast. 1/2 hr before meal. - metFORMIN ER (GLUCOPHAGE XR) 500 mg 24 hr tablet Take 4 tablets by mouth daily with breakfast. - alfuzosin SR (UROXATRAL) 10 mg 24 hr tablet Take 1 tablet by mouth daily at bedtime. - lisinopril (ZESTRIL) 10 mg tablet Take 1 tablet by mouth once daily. - atorvastatin (LIPITOR) 20 mg tablet Take 1 tablet by mouth once daily. - aspirin, enteric coated (ASPIRIN, ENTERIC COATED) 81 mg EC tablet Take 1 tablet by mouth two times a day. - Cholecalciferol, Vitamin D3, (VITAMIN D-3) 2,000 unit cap Take 1 capsule by mouth once daily. - blood sugar diagnostic (BLOOD GLUCOSE TEST) test strip Test blood sugar(s) 1 times daily and as needed. Dx: Type 2 DM - Uncontrolled E11.9 Insulin: No - Lancets lancets Test blood sugar(s) 1 times daily. 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] 07/28/2016 Type 2 diabetes mellitus without complication, *03/07/2018 Hypertension, essential [I10] 04/07/2018 Night sweats [R61] 08/06/2018 Vitamin D deficiency [E55.9] 08/06/2018 Hypertriglyceridemia [E78.1] 08/06/2018 Coronary artery disease involving [place] zhang*10/12/2023 Postoperative retention of urine [N99.89, R33.8]10/12/2023 Benign prostatic hyperplasia with lower urinary*10/12/2023 Elevated bilirubin [R17] 10/12/2023 History of kidney stones [Z87.442] 10/12/2023 A-fib (HCC) [I48.91] 10/12/2023 Neuropathy of foot [G57.90] 11/23/2023 Encounter Status:Closed by YOSEF SUNSHINE on 06/13/24 [facility] CNOVon 06-05-2024 CNOV Office Visit (INTMWS ) YUNGALA Yonathan ([id number]) 1980 M Date Time Provider Department 06/05/24 8:00 AM VESTA STALLWORTH INTMWS During your visit today, we recorded the following information about you: Pulse Blood pressure Weight 98/minute 118/70 108.7 kg Vesta Stallworth MD 06/05/2024 1:34 PM Signed This note was created using NoteWriter. Subjective Patient presents with: F/U 6 months SUBJECTIVE: Gala Yun is a 44 year old year old gentleman here today for 6 month follow up appointment for review of medical conditions. Gala Yun is a 44-year-old male with a history of DM, presenting for a 6-month follow-up. Gala reports a recent increase in HbA1c to 6.6%, the highest it has been in a while. He attributes this to poor dietary choices and reduced exercise during the holidays, as well as a recent illness for which he was prescribed steroids and antibiotics. He notes the appearance of dark spots on his shins around [place], which he associates with his diabetes. He is currently exercising 5-6 days a week and aims to improve his diet to lower his HbA1c to around 5.5%. His previous HbA1c was 5.8%. Gala expresses concern about the efficacy of his medications, noting that he takes all his medications in the morning with breakfast and has observed what appears to be whole pills in his stool. He questions whether he is receiving the full benefit of his medications, particularly metformin and Prilosec. He also inquires about the significance of his LDL cholesterol levels, which are below the threshold, and whether this could indicate another problem. Gala has a history of hip surgery and reports significant improvement in mobility and pain since the surgery. He is now able to perform squats and walk without pain, activities he has not been able to do for 5 years. He also reports a history of neuropathy in his left foot, characterized by tingling and burning sensations, and is scheduled to see a neurologist. Gala has a history of prostatitis and is currently on alfuzosin. He inquires about the need for a colonoscopy now that he is 44 years old and expresses concern about the procedure. He also asks about the need for a measles booster given recent outbreaks. Gala reports a history of flu-like symptoms, including high fever, body aches, and fatigue, but denies COVID-19. He is unsure if he received a flu shot in 2023. He also inquires about the need for a hepatitis B vaccination. PAST MEDICAL HISTORY Diagnosis Date Atypical chest pain 07/17/2015 Diabetes (HCC) Elevated bilirubin ?chronic versus intermittent mild elevation sicne childhood--benign condition Hyperlipidemia Kidney stone on left side had to have blasted and stented (treated Dr. Mittal) Vitamin D deficiency Current Outpatient Medications Medication Sig celecoxib (CELEBREX) 200 mg capsule take 1 capsule by mouth once daily with food (Patient not taking: Reported on 04/25/2024) omeprazole (PRILOSEC) 20 mg capsule Take 1 capsule by mouth daily before breakfast. 1/2 hr before meal. metFORMIN ER (GLUCOPHAGE XR) 500 mg 24 hr tablet Take 4 tablets by mouth daily with breakfast. ALPRAZolam (XANAX) 1 mg tablet Take 1 tablet by mouth once daily as needed for anxiety for up to 30 days. albuterol HFA (PROVENTIL HFA, VENTOLIN HFA) 90 mcg/actuation inhaler Inhale 2 Puffs as instructed every 4 hours as needed for wheezing/shortness of breath. baclofen 10 mg tablet take 1 tablet by mouth three times a day if needed muscle spasm (Patient not taking: Reported on 05/03/2024) alfuzosin SR (UROXATRAL) 10 mg 24 hr tablet Take 1 tablet by mouth daily at bedtime. lisinopril (ZESTRIL) 10 mg tablet Take 1 tablet by mouth once daily. atorvastatin (LIPITOR) 20 mg tablet Take 1 tablet by mouth once daily. aspirin, enteric coated (ASPIRIN, ENTERIC COATED) 81 mg EC tablet Take 1 tablet by mouth two times a day. celecoxib (CELEBREX) 100 mg capsule Take 1 capsule by mouth two times a day. Cholecalciferol, Vitamin D3, (VITAMIN D-3) 2,000 unit cap Take 1 capsule by mouth once daily. blood sugar diagnostic (BLOOD GLUCOSE TEST) test strip Test blood sugar(s) 1 times daily and as needed. Dx: Type 2 DM - Uncontrolled E11.9 Insulin: No Lancets lancets Test blood sugar(s) 1 times daily. Dx: Type 2 DM - Uncontrolled E11.65 Insulin: No No current facility-administered medications for this visit. Review of Systems Objective BP 118/70 Pulse 98 Wt 108.7 kg (239 lb 10.2 oz) SpO2 98% BMI 27.70 kg/m? Last 5 Encounter Wt Readings: Date: Wt: 06/05/2024 108.7 kg (239 lb 10.2 oz) 05/03/2024 109.1 kg (240 lb 8.4 oz) 04/25/2024 110.9 kg (244 lb 7.8 oz) 01/17/2024 108.9 kg (240 lb) 12/26/2023 109.4 kg (241 lb 2.9 oz) No waist measurement recorded Estimated body mass index is 27.7 kg/m? as calculated from the following: Height a (more content not included)... Normal [facility] 25(OH)D3 [facility] 2024 25-hydroxyvitamin D3 [Mass/Vol] 56.0 ng/mL Normal 31.0-80.0 [facility] Comment on above: Order Comment: Speci men Type: BLOOD SPECIMENOrdering Facility: [facility] Address: [address] [place] [address] Result Comment: Clas sification of 25 OH Vitamin D status: Deficiency/Insufficiency: < or = 30 ng/ml. Sufficiency/Optimal Levels: 31-80 ng/mL Toxicity: > 100 ng/mL. Test performed by chemiluminescent immunoassay. Performed By: #### 1 989-3 ####[facility] [id number] [place] [address] [place] CBC panel Auto (Bld)on 05-31 Erythrocyte distribution width (RBC) [Ratio] 13.5 % Normal 11.5-15.0 [facility] Comment on above: Order Comment: Speci men Type: BLOOD SPECIMENOrdering Facility: [facility] Address: [address] [place] [address] Performed By: #### 5 8410-2 ####[facility]CL[facility] [id number] [place] [address] [place] Hematocrit (Bld) [Volume fraction] 46.7 % Normal 39.0-51.0 [facility] Comment on above: Order Comment: Speci men Type: BLOOD SPECIMENOrdering Facility: [facility] Address: [address] [place] [address] Performed By: #### 5 8410-2 ####[facility] MILLTOWNCLIA [id number] [place] [address] [place] Hemoglobin (Bld) [Mass/Vol] 16.6 g/dL Normal 13.0-17.0 [facility] Comment on above: Order Comment: Speci men Type: BLOOD SPECIMENOrdering Facility: [facility] Address: [address] [place] [address] Performed By: #### 5 8410-2 ####[facility] MILLTOWNCLIA [id number] [place] [address] [place] MCH (RBC) [Entitic mass] 30.4 pg Normal 26.0-34.0 [facility] Comment on above: Order Comment: Speci men Type: BLOOD SPECIMENOrdering Facility: [facility] Address: [address] [place] [address] Performed By: #### 5 8410-2 ####[facility] [id number] [place] [address] [place] MCHC (RBC) [Mass/Vol] 35.5 g/dL Normal 30.5-36.0 [facility] Comment on above: Order Comment: Speci men Type: BLOOD SPECIMENOrdering Facility: [facility] Address: [address] [place] [address] Performed By: #### 5 8410-2 ####[facility] [id number] [place] [address] [place] MCV (RBC) [Entitic vol] 85.5 fL Normal 80.0-100.0 [facility] Comment on above: Order Comment: Speci men Type: BLOOD SPECIMENOrdering Facility: [facility] Address: [address] [place] [address] Performed By: #### 5 8410-2 ####[facility] [id number] [place] [address] [place] Nucleated RBC (Bld) [#/Vol] 10*3/uL Normal <0.01 [facility] Comment on above: Order Comment: Speci men Type: BLOOD SPECIMENOrdering Facility: [facility] Address: [address] [place] [address] Performed By: #### 5 8410-2 ####[facility] DORALNCLIA [id number] [place] [address] [place] Platelet mean volume (Bld) [Entitic vol] 9.3 fL Normal 9.0-12.7 [facility] Comment on above: Order Comment: Speci men Type: BLOOD SPECIMENOrdering Facility: [facility] Address: [address] [place] [address] Performed By: #### 5 8410-2 ####[facility]ALNC[facility] [id number] [place] [address] [place] Platelets (Bld) [#/Vol] 171 10*3/uL Normal 150-400 [facility] Comment on above: Order Comment: Speci men Type: BLOOD SPECIMENOrdering Facility: [facility] Address: [address] [place] [address] Performed By: #### 5 8410-2 ####[facility]ALNC[facility] [id number] [place] [address] [place] RBC (Bld) [#/Vol] 5.46 10*6/uL Normal 4.20-6.00 [facility] Comment on above: Order Comment: Speci men Type: BLOOD SPECIMENOrdering Facility: [facility] Address: [address] [place] [address] Performed By: #### 5 8410-2 ####[facility] DORALNCA [id number] [place] [address] [place] WBC (Bld) [#/Vol] 5.07 10*3/uL Normal 3.70-11.00 [facility] Comment on above: Order Comment: Speci men Type: BLOOD SPECIMENOrdering Facility: [facility] Address: [address] [place] [address] Performed By: #### 5 8410-2 ####[facility] DORALNCLIA [id number] [place] [address] [place] Comprehensive metabolic 2000 panelon 05-31-2024 Albumin [Mass/Vol] 4.7 g/dL Normal 3.9-4.9 [facility] Comment on above: Order Comment: Speci men Type: BLOOD SPECIMENOrdering Facility: [facility] Address: [address] [place] [address] Performed By: #### 2 4323-8 ####[facility] MILLTOWNCLIA [id number] [place] [address] [place]#### 34120-3 ####[facility] LABCLIA [id number] [place] [address] [place] [facility] MILLTOWNCLIA [id number] [place] [address] [place] ALP [Catalytic activity/Vol] 63 U/L Normal 38-113 [facility] Comment on above: Order Comment: Speci men Type: BLOOD SPECIMENOrdering Facility: [facility] Address: [address] [place] [address] Performed By: #### 2 4323-8 ####[facility] MILLTOWNCLIA [id number] [place] [address] [place]#### 63768-6 ####[facility] LABCLIA [id number] [place] [address] [place] [facility] MILLTOWNCLIA [id number] [place] [address] [place] ALT [Catalytic activity/Vol] 26 U/L Normal 10-54 [facility] Comment on above: Order Comment: Speci men Type: BLOOD SPECIMENOrdering Facility: [facility] Address: [address] [place] [address] Performed By: #### 2 4323-8 ####[facility] MILLTOWNCLIA [id number] [place] [address] [place]#### 88073-1 ####[facility] LABCLIA [id number] [place] [address] [place] [facility] [id number] [place] [address] [place] Anion gap [Moles/Vol] 14 mmol/L Normal 8-15 [facility] Comment on above: Order Comment: Speci men Type: BLOOD SPECIMENOrdering Facility: [facility] Address: [address] [place] [address] Performed By: #### 2 4323-8 ####[facility] HOSPITALLIA [id number] [place] [address] [place]#### 90801-2 ####[facility] LABCLIA [id number] [place] [address] [place] [facility] [id number] [place] [address] [place] AST [Catalytic activity/Vol] 20 U/L Normal 14-40 [facility] Comment on above: Order Comment: Speci men Type: BLOOD SPECIMENOrdering Facility: [facility] Address: [address] [place] [address] Performed By: #### 2 4323-8 ####[facility]IT[facility]IA [id number] [place] [address] [place]#### 49772-4 ####[facility] LABCLIA [id number] [place] [address] [place] [facility] [id number] [place] [address] [place] Bilirubin [Mass/Vol] 4.0 mg/dL High 0.2-1.3 [facility] Comment on above: Order Comment: Speci men Type: BLOOD SPECIMENOrdering Facility: [facility] Address: [address] [place] [address] [place] [address] Performed By: #### 2 4323-8 ####[facility] MILLTOWNCLIA [id number] [place] [address] [place]#### 60023-2 ####[facility] LABCLIA [id number] [place] [id number] [place] [facility] MILLTOWNCLIA [id number] [place] [address] [place] Calcium [Mass/Vol] 9.2 mg/dL Normal 8.5-10.2 [facility] Comment on above: Order Comment: Speci men Type: BLOOD SPECIMENOrdering Facility: [facility] Address: [address] [place] [address] Performed By: #### 2 4323-8 ####[facility] MILLTOWNCLIA [id number] [place] [address] [place]#### 84008-7 ####[facility] LABCLIA [id number] [place] [address] [place] AMERICADESOTO [facility]ORIAL HOSPITALWARLIA [id number] [place] [address] [place] Chloride [Moles/Vol] 100 mmol/L Normal 98-107 [facility] Comment on above: Order Comment: Speci men Type: BLOOD SPECIMENOrdering Facility: [facility] Address: [address] [place] [address] Performed By: #### 2 4323-8 ####[facility] MILLTOWNCLIA [id number] [place] [address] [place]#### 58847-8 ####[facility] LABCLIA [id number] [place] [id number] [place] AMERICAHCA [facility]ITAL[facility] [id number] [place] [address] [place] CO2 [Moles/Vol] 23 mmol/L Normal 22-30 [facility] Comment on above: Order Comment: Speci men Type: BLOOD SPECIMENOrdering Facility: [facility] Address: [address] [place] [address] Performed By: #### 2 4323-8 ####[facility] MILLWNCLIA [id number] [place] [address] [place]#### 26251-5 ####[facility] LABCLIA [id number] [place] [address] [place] [facility] [id number] [place] [address] [place] Creatinine [Mass/Vol] 0.77 mg/dL Normal 0.73-1.22 [facility] Comment on above: Order Comment: Speci men Type: BLOOD SPECIMENOrdering Facility: [facility] Address: [address] [place] [address] Performed By: #### 2 4323-8 ####[facility] DORALNCLIA [id number] [place] [address] [place]#### 72065-7 ####[facility] LABCLIA [id number] [place] [address] [place] [facility] [id number] [place] [address] [place] Creatinine and Glomerular filtration rate.predicted panel (S/P/Bld) 113 mL/min/1.73m??? Normal >=60 [facility] Comment on above: Order Comment: Speci men Type: BLOOD SPECIMENOrdering Facility: [facility] Address: [address] [place] [address] Result Comment: Shahrzad mated Glomerular Filtration Rate (eGFR) is calculated using the 2020 CKD-EPI creatinine equation. This equation utilizes serum creatinine, sex, and age as parameters. The creatinine assay has traceable calibration to isotope dilution-mass spectrometry. Refer to KDIGO guidelines for clinical interpretation. In patients with unstable renal function, e.g. those with acute kidney injury, the eGFR may not accurately reflect actual GFR. Performed By: #### 2 4323-8 ####[facility] [id number] [address]#### 06612-0 ####[facility] LABCLIA [id number] [address] STATES OF [facility] [id number] [place] [address] [place] Glucose [Mass/Vol] 160 mg/dL High 74-99 [facility] Comment on above: Order Comment: Speci men Type: BLOOD SPECIMENOrdering Facility: [facility] Address: [address] [place] [address] Result Comment: The [place] Diabetes Association (ADA) provides guidance for cutoff values for fasting glucose and random glucose. The ADA defines fasting as no caloric intake for at least 8 hours. Fasting plasma glucose results between 100 to 125 mg/dL indicate increased risk for diabetes (prediabetes). Fasting plasma glucose results greater than or equal to 126 mg/dL meet the criteria for diagnosis of diabetes. In the absence of unequivocal hyperglycemia, results should be confirmed by repeat testing. In a patient with classic symptoms of hyperglycemia or hyperglycemic crisis, random plasma glucose results greater than or equal to 200 mg/dL meet the criteria for diagnosis of diabetes. Reference: Standards of Medical Care in Diabetes 2016, [place] Diabetes Association. Diabetes Care. 2016.39(Suppl 1). Performed By: #### 2 4323-8 ####[facility] [id number] [address] [place]#### [address]10-2 ####[facility] LABCLIA [id number] [address] STATES [facility] MILLWARLIA [id number] [place] [address] [place] Potassium [Moles/Vol] 3.7 mmol/L Normal 3.7-5.1 [facility] Comment on above: Order Comment: Speci men Type: BLOOD SPECIMENOrdering Facility: [facility] Address: [address] [place] [address] Performed By: #### 2 4323-8 ####[facility] MILLWNCLIA [id number] [place] [address] [place]#### 79142-7 ####[facility] LABCLIA [id number] [address] STATES [facility] [id number] [place] [address] [place] Protein [Mass/Vol] 7.0 g/dL Normal 6.3-8.0 [facility] Comment on above: Order Comment: Speci men Type: BLOOD SPECIMENOrdering Facility: [facility] Address: [address] [place] [address] Performed By: #### 2 4323-8 ####[facility] MILLWNCLIA [id number] [place] [address] [place]#### 41802-2 ####[facility] LABCLIA [id number] [place] [address] [place] [facility] [id number] [place] [address] [place] Sodium [Moles/Vol] 137 mmol/L Normal 136-144 [facility] Comment on above: Order Comment: Speci men Type: BLOOD SPECIMENOrdering Facility: [facility] Address: [address] [place] [address] Performed By: #### 2 4323-8 ####[facility] [id number] [place] [address] [place]#### 76911-5 ####[facility] LABCLIA [id number] [address] [id number] [place] [address] [place] Urea nitrogen [Mass/Vol] 13 mg/dL Normal 9-24 [facility] Comment on above: Order Comment: Speci men Type: BLOOD SPECIMENOrdering Facility: [facility] Address: [address] [place] [address] Performed By: #### 2 4323-8 ####[facility] [id number] [place] [address] [place]#### 77356-0 ####[facility] LABCLIA [id number] [address] STATES [facility] [id number] [place] [address] [place] HbA1c (Bld)on 05-31-2024 Average glucose Estimated from glycated hemoglobin (Bld) [Mass/Vol] 143 mg/dL Normal [facility] Comment on above: Order Comment: Speci men Type: BLOOD SPECIMENOrdering Facility: [facility] Address: [address] [place] [address] Result Comment: eAG: (Estimated average glucose) is a calculated value from HgbA1c and is union representative of the average blood glucose level in the last 2-3 month period. Performed By: #### 5 5454-3 ####[facility] LABCLIA [id number] [place] [address] [place] HbA1c (Bld) [Mass fraction] 6.6 % High 4.3-5.6 [facility] Comment on above: Order Comment: Hanyi men Type: BLOOD SPECIMENOrdering Facility: [facility] Address: [address] [place] [address] Result Comment: [place] ican Diabetes Association guidelines indicate that patients with HgbA1c in the range 5.7-6.4% are at increased risk for development of diabetes, and intervention by lifestyle modification may be beneficial. HgbA1c greater or equal to 6.5% is considered diagnostic of diabetes. Performed By: #### 5 5454-3 ####[facility] LABCLIA [id number] [address] Lipid 1996 panelon 5 Cholesterol [Mass/Vol] 98 mg/dL Normal <200 [facility] Comment on above: Order Comment: Aryan iniguez Type: BLOOD SPECIMENOrdering Facility: [facility] Address: [address] [place] [address] Result Comment: <200 mg/dL, Desirable 200-239 mg/dL, Borderline high >239 mg/dL, High Performed By: #### 2 4323-8 ####[facility] [id number] [address] [place]#### 58930-1 ####[facility] LABCLIA [id number] [address] [id number] [address] STATES [facility] Cholesterol in HDL [Mass/Vol] 40 mg/dL Normal >39 [facility] Comment on above: Order Comment: Aryan geetha Type: BLOOD SPECIMENOrdering Facility: [facility] Address: [address] [place] [address] Result Comment: 40-5 9 mg/dL, Acceptable >59 mg/dL, High: Negative risk factor for coronary heart disease <40 mg/dL, Low: Positive risk factor for coronary heart disease Performed By: #### 2 4323-8 ####[facility] [id number] [place] [address] [place]#### 85918-6 ####[facility] LABCLIA [id number] [address] [id number] [place] [address] [place] Cholesterol in LDL [Mass/Vol] 40 mg/dL Normal <100 [facility] Comment on above: Order Comment: Speci men Type: BLOOD SPECIMENOrdering Facility: [facility] Address: [address] [place] [address] Result Comment: <100 mg/dL, Optimal 100-129 mg/dL, Near optimal/above optimal 130-159 mg/dL, Borderline high 160-189 mg/dL, High >189 mg/dL, Very high Secondary prevention optimal LDL Cholesterol levels are recommended to be < 70 mg/dL Performed By: #### 2 4323-8 ####[facility] [id number] [address] [place]#### 71855-9 ####[facility] LABCLIA [id number] [address] STATES OF [facility] [id number] [place] [address] [place] Cholesterol in LDL/Cholesterol in HDL [Mass ratio] 1.00 {ratio} Normal <2.54 [facility] Comment on above: Order Comment: Speci men Type: BLOOD SPECIMENOrdering Facility: [facility] Address: [address] [place] [address] Result Comment: Albaro hutchison: 1. National Cholesterol Education Program ATP III Guideline At-A-Glance Quick Desk Reference: National Heart, Lung, and Blood [place]. National Institutes of Health. 2001: NIH Publication No. 01-3305. 2. An International Atherosclerosis Society position paper: global recommendations for the management of dyslipidemia: executive summary, Atherosclerosis. 2014: 232(2):410-413. Performed By: #### 2 4323-8 ####[facility] MILLTOWNCLIA [id number] [place] [address] [place]#### 28178-4 ####[facility] LABCLIA [id number] [address]WNCL[address] [id number] [place] [address] [place] Cholesterol in VLDL [Mass/Vol] 18 mg/dL Normal <30 [facility] Comment on above: Order Comment: Speci men Type: BLOOD SPECIMENOrdering Facility: [facility] Address: [address] [place] [address] Performed By: #### 2 4323-8 ####[facility] MILLWNCLIA [id number] [place] [address] [place]#### 09943-7 ####[facility] LABCLIA [id number] [address] STATES [facility] [id number] [place] [address] [place] Cholesterol non HDL [Mass/Vol] 58 mg/dL Normal <130 [facility] Comment on above: Order Comment: Speci men Type: BLOOD SPECIMENOrdering Facility: [facility] Address: [address] [place] [address] Result Comment: <130 mg/dL, Optimal 130-159 mg/dL, Near optimal/above optimal 160-189 mg/dL, Borderline high 190-219 mg/dL, High >219 mg/dL, Very high Secondary prevention optimal non HDL Cholesterol levels are recommended to be <100 mg/dL Performed By: #### 2 4323-8 ####[facility] MILLWNCLIA [id number] [place] [address] [place]#### 69138-5 ####[facility] LABCLIA [id number] [place] [address] [facility] [id number] [place] [address] [place] Cholesterol.total/Ch olesterol in HDL [Mass ratio] 2.45 {ratio} Normal <5.10 [facility] Comment on above: Order Comment: Speci men Type: BLOOD SPECIMENOrdering Facility: [facility] Address: [address] [place] [address] Performed By: #### 2 4323-8 ####[facility] [id number] [place] [address] [place]#### 69048-9 ####[facility] LABCLIA [id number] [place] [address] [place] AMER[facility] [id number] [place] [address] [place] FASTING TIME 11 hrs Normal [facility] Comment on above: Order Comment: Speci men Type: BLOOD SPECIMENOrdering Facility: [facility] Address: [address] [place] [address] Performed By: #### 2 4323-8 ####[facility] [id number] [place] [address] [place]#### 50257-0 ####[facility] LABCLIA [id number] [place] [address] [place] AMERICADESOTO MEMORIAL HOSPITALWARLIA [id number] [place] [address] [place] Triglyceride [Mass/Vol] 90 mg/dL Normal <150 [facility] Comment on above: Order Comment: Speci men Type: BLOOD SPECIMENOrdering Facility: [facility] Address: [address] [place] [address] Result Comment: <150 mg/dL, Normal 150-199 mg/dL, Borderline high 200-499 mg/dL, High >499 mg/dL, Very high Performed By: #### 2 4323-8 ####[facility] [id number] [address]#### 73984-1 ####[facility] LABCLIA [id number] [address] OF [facility] [id number] [address] CNOVon 05-03-2024 CNOV Office Visit (UCTR ) GALA YUN ([id number]) 1980 M Date Time Provider Department 05/03/24 8:30 AM RASHIDA JONES [facility] During your visit today, we recorded the following information about you: Temperature Pulse Respiration Blood pressure 97.5 degrees 74/minute 19/minute 122/76 Weight 109.1 kg Rashida Jones, FR[employer] WORK INSPECTOR.[employer] FI[employer]MAN 05/03/2024 9:19 AM Signed Subjective Cough Associated symptoms include headaches and shortness of breath. Pertinent negatives include no chest pain, no chills, no ear pain, no sore throat and no myalgias. Gala Yonathan Yun is a 44 year old male who presents with cough and chest congestion, nasal congestion and drainage for the past 2 weeks. He was seen here on 04/25 and had chest xray which was negative. No medication was prescribed at that visit. He has not taken any medication at home. He denies fever or chills. He believes he had influenza initially and most of those symptoms have resolved except the cough and nasal congestion. He has had some shortness of breath when he tries to exercise. Review of Systems Constitutional: Negative for chills, fever and malaise/fatigue. HENT: Positive for congestion. Negative for ear pain and sore throat. Respiratory: Positive for cough, sputum production and shortness of breath. Cardiovascular: Negative for chest pain. Gastrointestinal: Negative for diarrhea, nausea and vomiting. Musculoskeletal: Negative for myalgias. Neurological: Positive for headaches. BP 122/76 Pulse 74 Temp 36.4 ?C (97.5 ?F) Resp 19 Wt 109.1 kg (240 lb 8.4 oz) SpO2 98% BMI 27.80 kg/m? PAST MEDICAL HISTORY Diagnosis Date Atypical chest pain 07/17/2015 Diabetes (HCC) Elevated bilirubin ?chronic versus intermittent mild elevation sicne childhood--benign condition Hyperlipidemia Kidney stone on left side had to have blasted and stented (treated Dr. Mittal) Vitamin D deficiency PAST SURGICAL HISTORY Procedure Laterality Date EXTENSIVE HIP SURGERY Right 09/17/2021 HIP RESURFACING HANCOCK Right 10/20/2023 PAST SURGICAL HISTORY OF 04/04/2009 kidney stone, blasted, stent placed PAST SURGICAL HISTORY OF 04/19/2013 Left elbow lateral epicondylar release, Dr. Damon PAST SURGICAL HISTORY OF Right Athroscopy ALLERGIES Prednisone MEDICATIONS celecoxib (CELEBREX) 200 mg capsule take 1 capsule by mouth once daily with food (Patient not taking: Reported on 04/25/2024) ALPRAZolam (XANAX) 1 mg tablet Take 1 tablet by mouth once daily as needed for anxiety for up to 30 days. alfuzosin SR (UROXATRAL) 10 mg 24 hr tablet Take 1 tablet by mouth daily at bedtime. omeprazole (PRILOSEC) 20 mg capsule Take 1 capsule by mouth daily before breakfast. 1/2 hr before meal. metFORMIN ER (GLUCOPHAGE XR) 500 mg 24 hr tablet Take 4 tablets by mouth daily with breakfast. lisinopril (ZESTRIL) 10 mg tablet Take 1 tablet by mouth once daily. atorvastatin (LIPITOR) 20 mg tablet Take 1 tablet by mouth once daily. aspirin, enteric coated (ASPIRIN, ENTERIC COATED) 81 mg EC tablet Take 1 tablet by mouth two times a day. Cholecalciferol, Vitamin D3, (VITAMIN D-3) 2,000 unit cap Take 1 capsule by mouth once daily. blood sugar diagnostic (BLOOD GLUCOSE TEST) test strip Test blood sugar(s) 1 times daily and as needed. Dx: Type 2 DM - Uncontrolled E11.9 Insulin: No Lancets lancets Test blood sugar(s) 1 times daily. Dx: Type 2 DM - Uncontrolled E11.65 Insulin: No methylPREDNISolone (MEDROL, MITCHELL,) 4 mg Dose-Pack Follow dosing instructions, take with food. amoxicillin-clavulana te potassium (AUGMENTIN) 875-125 mg per tablet Take 1 tablet by mouth two times a day for 7 days. albuterol HFA (PROVENTIL HFA, VENTOLIN HFA) 90 mcg/actuation inhaler Inhale 2 Puffs as instructed every 4 hours as needed for wheezing/shortness of breath. Inhalational Spacing Device 1 Device one time only for 1 dose. baclofen 10 mg tablet take 1 tablet by mouth three times a day if needed muscle spasm (Patient not taking: Reported on 05/03/2024) celecoxib (CELEBREX) 100 mg capsule Take 1 capsule by mouth two times a day. FAMILY HISTORY Problem Relation Age of Onset Coronary Artery Disease Father CABG at age 58 None Mother None Sister None Brother Ischemic Heart Disease Paternal Grandmother Stroke Paternal Grandmother Stroke Maternal Grandmother other (leukemia [Other]) Paternal Grandfather Social History Tobacco Use Smoking status: Former Smokeless tobacco: Never Vaping Use Vaping status: Never Used Substance Use Topics Alcohol use: Not Currently Comment: 1-2 times a week Drug use: Yes Frequency: 3.0 times per week Types: Marijuana Comment: Several times per week Objective Physical Exam Vitals and nursing note reviewed. Constitutional: General: He is not in acute distress. Appearance: Normal appearance. He is not ill-appearing. (more content not included)... Normal [facility] CNOVon 04-25-2024 CNOV Office Visit (UCWSTR ) GALA YUN ([id number]) 1980 M Date Time Provider Department 04/25/24 11:00 AM ALESSANDRA ZHOU [facility] During your visit today, we recorded the following information about you: Temperature Pulse Respiration Blood pressure 96.9 degrees 70/minute 16/minute 122/72 Weight 110.9 kg Alessandra Zhou PA 04/25/2024 11:32 AM Signed This note was created using Yonesriter. Subjective Gala Yun is a 44 year old male. HPI 44-year-old male presents for cough, rib pain. Patient states he has had a cough for the past 5 days. He states cough is dry. He states that he initially had nasal congestion and fevers and bodyaches. This has all resolved. He came in today because he is having right sided rib pain. He reports pain is over his right lower anterior ribs. He states the pain is an 8 out of 10 with coughing. He has no pain at rest. No chest pain. He has a little bit of shortness of breath occasionally. He denies any recent travel, no leg swelling. No recent hospitalization. No other complaint. PAST MEDICAL HISTORY Diagnosis Date Atypical chest pain 07/17/2015 Diabetes (HCC) Elevated bilirubin ?chronic versus intermittent mild elevation sicne childhood--benign condition Hyperlipidemia Kidney stone on left side had to have blasted and stented (treated Dr. Mittal) Vitamin D deficiency PAST SURGICAL HISTORY Procedure Laterality Date EXTENSIVE HIP SURGERY Right 09/17/2021 HIP RESURFACING HANCOCK Right 10/20/2023 PAST SURGICAL HISTORY OF 04/04/2009 kidney stone, blasted, stent placed PAST SURGICAL HISTORY OF 04/19/2013 Left elbow lateral epicondylar release, Dr. Damon PAST SURGICAL HISTORY OF Right Athroscopy ALLERGIES Prednisone MEDICATIONS celecoxib (CELEBREX) 200 mg capsuletake 1 capsule by mouth once daily with foodDisp: 90 capsuleRfl: 0 (Patient not taking: Reported on 04/25/2024) ALPRAZolam (XANAX) 1 mg tabletTake 1 tablet by mouth once daily as needed for anxiety for up to 30 days.Disp: 30 tabletRfl: 0 baclofen 10 mg tablettake 1 tablet by mouth three times a day if needed muscle spasmDisp: 90 tabletRfl: 0 alfuzosin SR (UROXATRAL) 10 mg 24 hr tabletTake 1 tablet by mouth daily at bedtime.Disp: 90 tabletRfl: 3 omeprazole (PRILOSEC) 20 mg capsuleTake 1 capsule by mouth daily before breakfast. 1/2 hr before meal.Disp: 90 capsuleRfl: 1 metFORMIN ER (GLUCOPHAGE XR) 500 mg 24 hr tabletTake 4 tablets by mouth daily with breakfast.Disp: 360 tabletRfl: 3 lisinopril (ZESTRIL) 10 mg tabletTake 1 tablet by mouth once daily.Disp: 90 tabletRfl: 3 atorvastatin (LIPITOR) 20 mg tabletTake 1 tablet by mouth once daily.Disp: 90 tabletRfl: 3 aspirin, enteric coated (ASPIRIN, ENTERIC COATED) 81 mg EC tabletTake 1 tablet by mouth two times a day.Disp: 56 tabletRfl: 0 Cholecalciferol, Vitamin D3, (VITAMIN D-3) 2,000 unit capTake 1 capsule by mouth once daily.Disp: Rfl: blood sugar diagnostic (BLOOD GLUCOSE TEST) test stripTest blood sugar(s) 1 times daily and as needed. Dx: Type 2 DM - Uncontrolled E11.9 Insulin: NoDisp: 100 StripRfl: 3 Lancets lancetsTest blood sugar(s) 1 times daily. Dx: Type 2 DM - Uncontrolled E11.65 Insulin: NoDisp: 100 EachRfl: 11 amoxicillin (AMOXIL) 500 mg capsuleTake 4 capsules (2000 mg) 1 hour prior to procedure, then take 2 capsules (1000mg) 6 hours after procedure.Disp: 12 capsuleRfl: 2 celecoxib (CELEBREX) 100 mg capsuleTake 1 capsule by mouth two times a day.Disp: 60 capsuleRfl: 1 FAMILY HISTORY Problem Relation Age of Onset Coronary Artery Disease Father CABG at age 58 None Mother None Sister None Brother Ischemic Heart Disease Paternal Grandmother Stroke Paternal Grandmother Stroke Maternal Grandmother other (leukemia [Other]) Paternal Grandfather Social History Tobacco Use Smoking status: Former Smokeless tobacco: Never Vaping Use Vaping status: Never Used Substance Use Topics Alcohol use: Not Currently Comment: 1-2 times a week Drug use: Yes Frequency: 3.0 times per week Types: Marijuana Comment: Several times per week Review of Systems Constitutional: Negative for chills and fever. HENT: Negative for congestion and sore throat. Respiratory: Positive for cough and shortness of breath. Gastrointestinal: Negative for diarrhea and vomiting. Objective BP 122/72 Pulse 70 Temp 36.1 ?C (96.9 ?F) Resp 16 Wt 110.9 kg (244 lb 7.8 oz) SpO2 97% BMI 28.26 kg/m? Physical Exam Vitals and nursing note reviewed. Constitutional: General: He is not in acute distress. Appearance: Normal appearance. He is not toxic-appearing. HENT: Right Ear: Tympanic membrane and ear canal normal. Left Ear: Tympanic membrane and ear canal normal. Nose: Nose normal. Mouth/Throat: Mouth: Mucous membranes are moist. Eyes: Conjunctiva/sclera: Conjunctivae normal. Cardiovascular: Rat (more content not included)... Normal [facility] XR CHEST 2V FRONTAL/LATon XR CHEST 2V FRONTAL/LAT * * *Final Report* * * DATE OF EXAM: Apr 25 2024 11:25AM WOX [id number] - XR CHEST 2V FRONTAL/LAT / PROCEDURE REASON: multiple diagnoses * * * * Physician Interpretation * * * * EXAMINATION: CHEST RADIOGRAPH (2 VIEW FRONTAL and LATERAL) CLINICAL HISTORY: Acute cough Rib pain on right side MQ: XC2_6 EXAM DATE/TIME: 04/25/2024 11:25 AM COMPARISON: Chest x-ray dated 07/17/2015 RESULT: Lines, tubes, and devices: None. Lungs and pleura: No consolidation. No lung mass. No pleural effusion. No pneumothorax. Cardiomediastinal silhouette: Normal cardiomediastinal silhouette. Bones and soft tissues: Mild degenerative changes. IMPRESSION: No acute radiographic abnormality. Knowledge Manager: CHARY Transcribe Date/Time: Apr 25 2024 11:27A Dictated by : ANTONIA MAGUIRE MD This examination was interpreted and the report reviewed and electronically signed by: ANTONIA MAGUIRE MD on Apr 25 2024 11:27AM EST [id number] Normal [facility] XR Chest PA and Lateralon IMPRESSION: No acute radiographic abnormality. Knowledge Manager: CHARY Transcribe Date/Time: Apr 25 2024 11:27A Dictated by : ANTONIA MAGUIRE MD This examination was interpreted and the report reviewed and electronically signed by: ANTONIA MAGUIRE MD on Apr 25 2024 11:27AM EST DIVISION OF RADIOLOGY * * *Final Report* * * DATE OF EXAM: Apr 25 2024 11:25AM WOX [id number] - XR CHEST 2V FRONTAL/LAT / PROCEDURE REASON: multiple diagnoses * * * * Physician Interpretation * * * * EXAMINATION: CHEST RADIOGRAPH (2 VIEW FRONTAL & LATERAL) CLINICAL HISTORY: Acute cough Rib pain on right side MQ: XC2_6 EXAM DATE/TIME: 04/25/2024 11:25 AM COMPARISON: Chest x-ray dated 07/17/2015 RESULT: Lines, tubes, and devices: None. Lungs and pleura: No consolidation. No lung mass. No pleural effusion. No pneumothorax. Cardiomediastinal silhouette: Normal cardiomediastinal silhouette. Bones and soft tissues: Mild degenerative changes. DIVISION OF RADIOLOGY Provider, [facility] - 04/25/2024 * * *Final Report* * * DATE OF EXAM: Apr 25 2024 11:25AM WOX [id number] - XR CHEST 2V FRONTAL/LAT / PROCEDURE REASON: multiple diagnoses * * * * Physician Interpretation * * * * EXAMINATION: CHEST RADIOGRAPH (2 VIEW FRONTAL & LATERAL) CLINICAL HISTORY: Acute cough Rib pain on right side MQ: XC2_6 EXAM DATE/TIME: 04/25/2024 11:25 AM COMPARISON: Chest x-ray dated 07/17/2015 RESULT: Lines, tubes, and devices: None. Lungs and pleura: No consolidation. No lung mass. No pleural effusion. No pneumothorax. Cardiomediastinal silhouette: Normal cardiomediastinal silhouette. Bones and soft tissues: Mild degenerative changes. IMPRESSION IMPRESSION: No acute radiographic abnormality. Knowledge Manager: PSCB Transcribe Date/Time: Apr 25 2024 11:27A Dictated by : ANTONIA MAGUIRE MD This examination was interpreted and the report reviewed and electronically signed by: ANTONIA MAGUIRE MD on Apr 25 2024 11:27AM [facility] Radiology Study observation (narrative) [facility] XR Chest PA and LateralOrder ed By: [facility] Provider on 04-25-2024 [facility] PT D/C Summary (1)on 024 PT D/C Summary (1) [facility] Physical Therapy [facility] [address] [place] [address] / REHABILITATION SERVICES DISCHARGE SUMMARY MR#: [id number] Acct: [id number] Name: GALA YUN Rep #: [id number] : 1980 43 From: Fletcher Wei PT, Cert. T, OCS Referring Dr.: Holland Mo MD Status: REG RCR Insurance: [facility] SELF PAY INSURANCE Discharge Summary D/C summary: It has been my pleasure to treat GALA YUN referred by Holland Mo MD, with the diagnosis of S/P TOTAL HIP RESURFACING for a total of 16 visit(s). Discharge Date: 02/29/24 Please see the following information for a summary of their discharge status. Subjective Subjective: Seen Dr last Tuesday Return in October Pain is wosre at night Pain Right Hip: Pain Intensity (Out of 10): 0 Overall Improvement % Improvement: 80 Objective Objective/Function: Objective: POSTURE: WFL SKIN: WFL NEURO: denies paresthesia/tingling GAIT : reciprocal pattern PROM: hip flexion 120 degrees ,IR 20 degrees ,50 degrees ER ,extension 10 degrees ,hip abd 40 degrees MMT: quads 4/5 ,hamstrings 4/5 ,( peak force) hip xriefbvxp73.3 ,hip flexion 48.6 SLS: 30SEC lateral drops Goals Goal 1:: Patient to be I with HEP for hip Goal Progress: Goal Met Goal 2:: Patient to normalize gait Goal Progress: Goal Met Goal 3:: Patient to improve peak force hip abductors and hip flexion by 10-15 # strength to improve function Goal Progress: Goal Met Goal 4:: Patient to demonstrate 75% improvement with decrease pain and improved function Goal Progress: Goal Met Goal 5:: Patient improve LFES score by 10 points to improve QOL and function and gait Goal Progress: Goal Met Plan Plan: d/c D/C Information Discharge Comments: HEP d/c sentence: If there are questions or concerns regarding this patient's physical therapy, please feel free to call me at [phone]. Thank you for the referral of this patient. Sincerely, Fletcher Wei, PT, Cert MDT, OCS Balance/Gait/Function al tests Balance/Special Test Scores Lower Extremity Functional Score: 57 Improvement % Improvement: 80 02/29/24 [id number] CC: Dr. 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 He is here today for clinical check. He is now 4mo s/p right BHR. He saw Tereza about a month ago after reaching out to our office about right sided knee pain and wanting to check in on his progress related to his hip. Today, he feels things hurt more now than they did preoperatively. And he never had knee pain until after surgery. Knee pain is lateral and then also has discomfort down lateral lower leg. His knee is popping. We did obtain knee x-rays last month. He continues in PT for his hip. Going a couple times a week and then to the gym on his own. If he twists he feels like an ice pick in his lateral hip. He is able to do PT, but has pain. He does have some groin pain, but feels this is most infrequent occurring. He is icing and stretching. He is taking Celebrex daily. Sleeping on his operative side is still uncomfortable. Exam: RLE ROM 0 - 100 degrees, painless. No swelling Well-healed incision. Limb Lengths are equal Abductor Strength is 5/5 -- He points over his tensor fascia debra muscle belly over his anterior/lateral proximal thigh. He also has pain over the anterolateral aspect of his knee, over the lateral retinaculum. No patellar compression pain. Able to do SLR without difficulty. He has no pain with 90/90 resisted hip flexion. 5/5 quad strength. Today he has no TTP over his psoas, Gtbursa and Itband. Knee ROM is 0-120 painless. Some slight TTP over the pes bursa but is certainly more tender over his ITBand insertion. No effusion, no reproducible pain at the joint line with rotation/pivot maneuvers, ligamentously stable to provocative testing Ambulates in today without a limp, assist device - None Imaging: No new imaging obtained today. 01/17/2024 Right Knee plain films reviewed. Unremarkable views of the right knee. Joint spaces are maintained. No joint effusion. No concern for acute bony abnormality. 12/01/23 Right Hip Plain Films have been reviewed. Again seen is postsurgical change of resurfacing right hip arthroplasty with satisfactory alignment with intact hardware. No acute fracture. Postoperative soft tissue gas has resolved. Remainder unchanged. These images will serve as baseline images moving forward. A/P: Mr. Yun is a 43-year-old male who is just over 4 months out from a right hip resurfacing. He is having intermittent groin and lateral thigh pain. He failed hip arthroscopy on the right side, never really getting any pain relief. Today, he has a negative intra-articular exam today. He has no effusion. He has a completely benign exam today without pain in the hip with provocative testing. He has some pain with internal rotation of his hip when the leg is fully straight, over the anterior/lateral thigh. When this occurs at home he describes it as a knifelike pain that is 10/10. He is back to work. He is taking Celebrex. - RTC at his 1 year follow up visit, with x-rays at that time. OK to communicate on [employer]. - Wound appears pristine - Medication Rx's given today: Celebrex --he can continue to take this on an as needed basis. He is not sure this is working. I would be happy to switch him to a different anti-inflammatory in the future to see if there is better effect. - I do not have concern for prosthetic joint infection based on exam. - He does not have any clear story for meniscal pathology, other than perhaps leg positioning/maneuveri ng during the Procedure (clicking, popping, anterolateral knee pain is new since his surgery). He Does Not Have Any Joint Line Pain without Effusion or Trauma History Is Hard to Reconcile a Potential Meniscus Tear at This Time. He Also Points over the Distal IT Band and the Proximal TFL Muscle Belly. I Suspect That Stretching and Core Strengthening Is the Most Appropriate Avenue at This Point. If He Does Develop Persistent Pain, or Effusion in His Knee, Then an MRI without Contrast of the Knee Would Be Next Step. - Continue PT/HEP. Discussed focus on core strengthening and ITBand stretching. - HRA activity packet reviewed today. No high impact activity x1 year. - Reminded of dental (more content not included)... Normal [facility][id number]) 1980 M Date Time Provider Department 02/17/24 [place] ORQ During your visit today, we recorded the following information about you: Kristine Cox 02/17/2024 9:09 AM Signed Radiology needs new orders for Gala, they are not able to schedule from the orders in [facility]. Marya Roberson, DOLORES 02/17/2024 9:22 AM Addendum Gallo Carmona - is there a phone number to call back? We specifically put [address], but will just place another one now with no dates on it. One order is scheduled for his follow up in October and the other was to be used today. I'm not sure what the issue is. Can you please call radiology back and explain? Allergies As of Date: 02/17/2024 Noted Allergy Reaction PREDNISONE 01/16/2019 5 - Intolerance Comments: Did not tolerate and would not take again--not sure the exact adverse effect. Can take other steroids Date Reviewed: 02/17/2024 Reviewed by: Luana aZrate OCCA - Fully Assessed Reason for Visit: Orders [681] Primary Visit Diagnosis:Status post total hip resurfacing [Z96.649] Order(s):XR HIP GENERAL 3V PELV/AP/LAT RIGHT [[id number]] Order #: [id number] FUTURE Prescriptions as of 02/17/2024 - baclofen 10 mg tablet take 1 tablet by mouth three times a day if needed muscle spasm - amoxicillin (AMOXIL) 500 mg capsule Take 4 capsules (2000 mg) 1 hour prior to procedure, then take 2 capsules (1000mg) 6 hours after procedure. - ALPRAZolam (XANAX) 1 mg tablet Take 1 tablet by mouth once daily as needed for anxiety for up to 30 days. - celecoxib (CELEBREX) 200 mg capsule Take 1 capsule by mouth once daily. Take with food or milk. - alfuzosin SR (UROXATRAL) 10 mg 24 hr tablet Take 1 tablet by mouth daily at bedtime. - omeprazole (PRILOSEC) 20 mg capsule Take 1 capsule by mouth daily before breakfast. 1/2 hr before meal. - metFORMIN ER (GLUCOPHAGE XR) 500 mg 24 hr tablet Take 4 tablets by mouth daily with breakfast. - lisinopril (ZESTRIL) 10 mg tablet Take 1 tablet by mouth once daily. - atorvastatin (LIPITOR) 20 mg tablet Take 1 tablet by mouth once daily. - aspirin, enteric coated (ASPIRIN, ENTERIC COATED) 81 mg EC tablet Take 1 tablet by mouth two times a day. - celecoxib (CELEBREX) 100 mg capsule Take 1 capsule by mouth two times a day. - Cholecalciferol, Vitamin D3, (VITAMIN D-3) 2,000 unit cap Take 1 capsule by mouth once daily. - blood sugar diagnostic (BLOOD GLUCOSE TEST) test strip Test blood sugar(s) 1 times daily and as needed. Dx: Type 2 DM - Uncontrolled E11.9 Insulin: No - Lancets lancets Test blood sugar(s) 1 times daily. 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] 07/28/2016 Type 2 diabetes mellitus without complication, *03/07/2018 Hypertension, essential [I10] 04/07/2018 Night sweats [R61] 08/06/2018 Vitamin D deficiency [E55.9] 08/06/2018 Hypertriglyceridemia [E78.1] 08/06/2018 Coronary artery disease involving [place] zhang*10/12/2023 Postoperative retention of urine [N99.89, R33.8]10/12/2023 Benign prostatic hyperplasia with lower urinary*10/12/2023 Elevated bilirubin [R17] 10/12/2023 History of kidney stones [Z87.442] 10/12/2023 A-fib (HCC) [I48.91] 10/12/2023 Neuropathy of foot [G57.90] 11/23/2023 Encounter Status:Closed by MANOJ WILD on 02/17/24 Normal 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 He is here today for clinical check. He also had xrays completed of his right knee due to concern of pain. He had recently reached out to our office last week with a concern of regression of his progress. He wanted to verify everything was ok with his hip. He is just over 3 months post-op. He describes shooting pain in the leg. This occurs in the right groin. This is intermittent. It typically only happens with flexion. He also has concerns of his ipsilateral knee. He states that this has buckled on him at physical therapy. Walking has caused him some discomfort at his knee. He has had some difficulty sleeping. He is typically a side sleeper and is having pain lying on his right side. He notes that he has been trying icing. He continues to stretch 3 times per day. He started naproxen per his conversation with Manoj on 01/10/2024 and this has helped relieve some of his symptoms. He denies any persistent groin pain today. He has no fevers, chills, issues with his incision. Exam: RLE ROM 0 - 100 degrees, painless. Mild swelling appropriate for post-op. Well-healed incision. There is no expressible drainage from the incision. No surrounding erythema or cellulitis. Limb Lengths are equal Abductor Strength is 5/5 Able to do SLR without difficulty 5/5 quad strength. TTP over his psoas, Gtbursa and Itband. Knee ROM is 0-120 painless. Some slight TTP over the pes bursa but is certainly more tender over his ITBand insertion. Ambulates in today without a limp, assist device - crutches - 50% weightbearing. Imagin01/17/2024 Right Knee plain films reviewed. Unremarkable views of the right knee. Joint spaces are maintained. No joint effusion. No concern for acute bony abnormality. 12/01/23 Right Hip Plain Films have been reviewed. Again seen is postsurgical change of resurfacing right hip arthroplasty with satisfactory alignment with intact hardware. No acute fracture. Postoperative soft tissue gas has resolved. Remainder unchanged. These images will serve as baseline images moving forward. A/P: Mr. Yun is a 43-year-old male who is just over 3 months out from a right hip resurfacing. He is having intermittent groin and lateral thigh pain. He has a negative intra-articular exam today. His symptoms are reproducible with palpation of the greater trochanteric bursa and the psoas tendon. No incision changes. Low suspicion for infection today. - RTC at his 1 year follow up visit, with x-rays at that time. OK to communicate on [employer]. - Wound appears pristine, steristrips removed - OK to shower/bathe - Medication Rx's given today: Celebrex - DVT ppx: Completed course of ASA after 4 weeks - Completed Iron + Vitamin C after 4 weeks post-op - Continue PT/HEP. Discussed focus on core strengthening and ITBand stretching. - HRA activity packet reviewed today. No high impact activity x1 year. - Reminded of dental prophylaxis precautions Months post-op: 12w 5d Heather Diego PA-C Attending: Dr. Holland Mo [facility] [place] Department of Orthopedic Surgery Adult Reconstruction AND Musculoskeletal Oncology 01/17/2024 2:32 PM Allergies As of Date: 01/17/2024 Noted Allergy Reaction PREDNISONE 01/16/2019 5 - Intolerance Comments: Did not tolerate and would not take again--not sure the exact adverse effect. Can take other steroids Date Reviewed: 01/17/2024 Reviewed by: Fifi Farley MA - Fully Assessed Reason for Visit: Follow Up [171] Primary Visit Diagnosis:Status post total hip resurfacing [Z96.649] Order(s):celecoxib (CELEBREX) 200 mg capsuleTake 1 capsule by mouth once daily. Take with food or milk.Disp: 90 capsuleRfl: 0 Prescriptions as of 01/31/2024 - baclofen 10 mg tablet take 1 tablet by mouth three times a day if needed muscle spasm - amoxicillin (AMOXIL) 500 mg capsule Take 4 capsules (2000 mg) 1 hour prior to procedure, then take 2 capsules (1000mg) 6 hours after procedure. - ALPRAZolam (XANAX) 1 mg tablet Take 1 tablet by mouth once daily as needed for anxiety (more content not included)... Normal [facility] XR KNEE 4V AP/PA BOTH+LAT/ME R RTon 01-17-2024 XR KNEE 4V AP/PA BOTH+LAT/SLIME RT * * *Final Report* * * DATE OF EXAM: Jan 17 2024 1:54PM AOX 5203 - XR KNEE 4V AP/PA BOTH+LAT/SLIME RT / PROCEDURE REASON: Acute pain of right knee * * * * Physician Interpretation * * * * X-RAYS RIGHT KNEE HISTORY: Rt knee pain after surgery. Acute pain of right knee TECHNIQUE: 4 views of the right knee. COMPARISON: None RESULT: No acute fracture or dislocation. The joint spaces are preserved. No joint effusion is identified. IMPRESSION: Unremarkable right knee Knowledge Manager: CHARY Transcribe Date/Time: Jan 17 2024 2:34P Dictated by : NIHARIKA NELSON MD This examination was interpreted and the report reviewed and electronically signed by: NIHARIKA NELSON MD on Jan 17 2024 2:35PM EST [id number] Normal [facility] XR Knee - right 4 Viewson IMPRESSION: Unremarkable right knee Knowledge Manager: PSCB Transcribe Date/Time: Jan 17 2024 2:34P Dictated by : NIHARIKA NELSON MD This examination was interpreted and the report reviewed and electronically signed by: NIHARIKA NELSON MD on Jan 17 2024 2:35PM EST DIVISION OF RADIOLOGY * * *Final Report* * * DATE OF EXAM: Jan 17 2024 1:54PM AOX 5203 - XR KNEE 4V AP/PA BOTH+LAT/SLIME RT / PROCEDURE REASON: Acute pain of right knee * * * * Physician Interpretation * * * * X-RAYS RIGHT KNEE HISTORY: Rt knee pain after surgery. Acute pain of right knee TECHNIQUE: 4 views of the right knee. COMPARISON: None RESULT: No acute fracture or dislocation. The joint spaces are preserved. No joint effusion is identified. DIVISION OF RADIOLOGY Provider, [facility] Rip Todd - 01/17/2024 * * *Final Report* * * DATE OF EXAM: Jan 17 2024 1:54PM AOX 5203 - XR KNEE 4V AP/PA BOTH+LAT/SLMIE RT / PROCEDURE REASON: Acute pain of right knee * * * * Physician Interpretation * * * * X-RAYS RIGHT KNEE HISTORY: Rt knee pain after surgery. Acute pain of right knee TECHNIQUE: 4 views of the right knee. COMPARISON: None RESULT: No acute fracture or dislocation. The joint spaces are preserved. No joint effusion is identified. IMPRESSION IMPRESSION: Unremarkable right knee Knowledge Manager: PSCShahla Transcribe Date/Time: Jan 17 2024 2:34P Dictated by : NIHARIKA NELSON MD This examination was interpreted and the report reviewed and electronically signed by: NIHARIKA NELSON MD on Jan 17 2024 2:35PM [facility] Radiology Study observation (narrative) [facility] XR Knee - right 4 ViewsOrder ed By: [facility] Provider on 01-17-2024 [facility] Beau 01-10-2024 [facility] Telephone (ORQ) GALA YUN ([id number]) 1980 M Date Time Provider Department 01/10/24 [place] ORQ During your visit today, we recorded the following information about you: Christina Miranda 01/10/2024 10:58 AM Signed Patient called today complaining of pain. Pain location: Right Hip Have you had surgery on this body part? Right Hip Resurfacing on 10/20/23 When did the pain start? Started mid December, it just progressively started getting worse. At first he noticed he wasn't sleeping as well then dull pain, then progressed into pain that shoots from hip to groin into his knee. Now anytime he bears weight he is feeling pain, at PT today his leg buckled underneath him Was this caused by an injury, fall, etc? No Is there swelling or redness of the affected area? No What have you done to try to decrease the pain? Icing, takes two tylenol every morning, does physical therapy exercises Follow up appt scheduled, if needed? 02/17/2024 Phone number to call back, if needed? Verify preferred pharmacy, if medications need to be sent. [facility] [address] [place] [address] Marya Wild RN 01/10/2024 3:54 PM Signed Call returned, spoke with Gala. Things have been a bit more uncomfortable the last couple weeks for him, after recovery had initially been going well. He continues in outpatient PT twice weekly, also doing exercises, stretching, walking, and icing at home. He states his Celebrex ran out a couple of weeks ago, also around the same time that he traveled to [place] and was doing a lot of walking at this time. He didn't really think anything of it if he started having more of this issue after that. He is now experiencing sharp pain in his groin, hip and knee. While at PT today his knee buckled. Notices this issue more when ambulating/weightbear ing. He also reports that sleeping on either side has become more painful, as well. He's wanting to verify if all of this sounds normal and appropriate for his recovery timeline. I have recommended getting him back on an NSAID daily to see if that can help try to calm things down. He will take Aleve BID or Advil 400-600mg TID - either with food or milk. He will do this daily for the next week. If OTC doesn't help we can discuss putting him back on Celebrex. He does also continue to take Baclofen at night - having spasms/restless leg at night. I have offered him to come in to see Tereza for exam next week, he accepted. We can also plan to get baseline x-rays of his right knee - not sure if he is having a separate issue with that. He appreciated the follow up. Allergies As of Date: 01/10/2024 Noted Allergy Reaction PREDNISONE 01/16/2019 5 - Intolerance Comments: Did not tolerate and would not take again--not sure the exact adverse effect. Can take other steroids Date Reviewed: 12/26/2023 Reviewed by: Mi Taveras APRN.[employer] - Fully Assessed Reason for Visit: Right Hip Pain [1554] Primary Visit Diagnosis:Acute pain of right knee [M25.561] Order(s):XR KNEE GENERAL 4V AP BOTH/PA BOTH/LAT/MERC RIGHT [[id number]] Order #: [id number] FUTURE Prescriptions as of 01/11/2024 - baclofen 10 mg tablet take 1 tablet by mouth three times a day if needed muscle spasm - alfuzosin SR (UROXATRAL) 10 mg 24 hr tablet Take 1 tablet by mouth daily at bedtime. - omeprazole (PRILOSEC) 20 mg capsule Take 1 capsule by mouth daily before breakfast. 1/2 hr before meal. - ALPRAZolam (XANAX) 1 mg tablet Take 1 tablet by mouth once daily as needed for anxiety for up to 30 days. - metFORMIN ER (GLUCOPHAGE XR) 500 mg 24 hr tablet Take 4 tablets by mouth daily with breakfast. - lisinopril (ZESTRIL) 10 mg tablet Take 1 tablet by mouth once daily. - atorvastatin (LIPITOR) 20 mg tablet Take 1 tablet by mouth once daily. - aspirin, enteric coated (ASPIRIN, ENTERIC COATED) 81 mg EC tablet Take 1 tablet by mouth two times a day. - celecoxib (CELEBREX) 100 mg capsule Take 1 capsule by mouth two times a day. - Cholecalciferol, Vitamin D3, (VITAMIN D-3) 2,000 unit cap Take 1 capsule by mouth once daily. - blood sugar diagnostic (BLOOD GLUCOSE TEST) test strip Test blood sugar(s) 1 times daily and as needed. Dx: Type 2 DM - Uncontrolled E11.9 Insulin: No - Lancets lancets Test blood sugar(s) 1 times daily. Dx: Type 2 DM - Uncontrolled E11.65 Insulin: No Facility-Administered Medications as of 01/11/2024 - perflutren lipid microspheres 1.3 mL in NaCl (PF) 0.9% 10 mL injection (DEFINITY) - sodium chloride 0.9 % (flush) 10 mL (BD POSIFLUSH) Problem List As Of Date 01/10/2024 Noted Resolved Panic [F41.0] 06/19/2014 Social phobia [F40.10] 06/19/2014 FH: hemochromatosis [Z83.49] 07/16/2014 Dysthymia [F34.1] 07/17/2014 Recurrent major depressive disorder, in partial*06/20/2015 Atypical dell (more content not included)... Normal [facility] CNOVon 12-26-2023 CNOV Office Visit (WSTR ) YUNGALA Mcmanus ([id number]) 1980 M Date Time Provider Department 12/26/23 1:45 PM [facility] During your visit today, we recorded the following information about you: Temperature Pulse Respiration Blood pressure 97.5 degrees 98/minute 16/minute 122/72 Weight 109.4 kg Mi Taveras APRN.[employer] 12/26/2023 2:07 PM Signed Subjective The history is provided by the patient. No conference interpreter was used. HPI Gala Yun is a 43 year old male who presents today for CC of possible wax in right ear. He used drops, as well as flushing ear with out relief. He has an appointment Tuesday with ENT. BP 122/72 Pulse 98 Temp 36.4 ?C (97.5 ?F) Resp 16 Wt 109.4 kg (241 lb 2.9 oz) SpO2 98% BMI 27.88 kg/m? Social History Tobacco Use Smoking status: Former Smokeless tobacco: Never Vaping Use Vaping status: Never Used Substance Use Topics Alcohol use: Not Currently Comment: 1-2 times a week Drug use: Yes Frequency: 3.0 times per week Types: Marijuana Comment: Several times per week PAST MEDICAL HISTORY Diagnosis Date Atypical chest pain 07/17/2015 Diabetes (HCC) Elevated bilirubin ?chronic versus intermittent mild elevation sicne childhood--benign condition Hyperlipidemia Kidney stone on left side had to have blasted and stented (treated Dr. Mittal) Vitamin D deficiency I have confirmed and edited as necessary, the [facility] Review of Systems Constitutional: Negative for chills and fever. HENT: Positive for ear pain. Negative for congestion, sinus pain and sore throat. Respiratory: Negative for cough. Musculoskeletal: Negative for joint pain and myalgias. Skin: Negative for itching and rash. All other systems reviewed and are negative. Objective Physical Exam Vitals and nursing note reviewed. HENT: Right Ear: Tympanic membrane, ear canal and external ear normal. There is impacted cerumen. Left Ear: Tympanic membrane, ear canal and external ear normal. Ears: Comments: Lavage done of right ear by Damon Barros, patient tolerated well, able to see TM - see exam Pulmonary: Effort: Pulmonary effort is normal. Skin: General: Skin is warm and dry. Neurological: Mental Status: He is alert and oriented to person, place, and time. Psychiatric: Mood and Affect: Affect normal. Ambulatory Ear Lavage Pre-treatment: Warm water Treatment: Right ear Equipment and Irrigation solution and Volume used: Single use syringe with single use irrigation tip Water Return flow appearance: Brown Patient tolerated procedure: yes Tympanic membrane assessment: Tympanic membrane assessed by LIP pre and post procedure ASSESSMENT/PLAN: 1. Impacted cerumen of right ear - ICD9: 380.4, ICD10: H61.21 Debrox Avoid use of qtips - AMBULATORY EAR LAVAGE/IRRIGATION Diagnosis and treatment plan were discussed and questions were answered to the patient's satisfaction. Pt acknowledged understanding of concepts and follow up plan. Specific signs and symptoms that would indicate the need for higher level of care were discussed in detail warranting prompt ER evaluation. Mi Taveras APRN.Ave Monique MA 12/26/2023 2:06 PM Signed Ambulatory Ear Lavage Pre-treatment: Warm water Treatment: Right ear Equipment and Irrigation solution and Volume used: Single use syringe with single use irrigation tip Water Return flow appearance: Brown Yellow Patient tolerated procedure: yes Tympanic membrane assessment: Tympanic membrane assessed by LIP pre and post procedure LAURA Albarado Tonya, APRN.CNP 12/26/2023 2:06 PM Signed Use may use OTC Debrox or Cerumenex once a month for maintenance. Avoid inserting Q-tips into your ears. Follow up with your PCP as needed. Allergies As of Date: 12/26/2023 Noted Allergy Reaction PREDNISONE 01/16/2019 5 - Intolerance Comments: Did not tolerate and would not take again--not sure the exact adverse effect. Can take other steroids Date Reviewed: 12/26/2023 Reviewed by: Mi Taveras APRN.[employer] - Fully Assessed Reason for Visit: Ear Problem [38] Cmt: clogged x 1 day Primary Visit Diagnosis:Impacted cerumen of right ear [H61.21] Order(s):AMBULATORY EAR LAVAGE/IRRIGATION [52340HON] Order #: [id number] Prescriptions as of 12/26/2023 - baclofen 10 mg tablet take 1 tablet by mouth three times a day if needed muscle spasm - alfuzosin SR (UROXATRAL) 10 mg 24 hr tablet Take 1 tablet by mouth daily at bedtime. - omeprazole (PRILOSEC) 20 mg capsule Take 1 capsule by mouth daily before breakfast. 1/2 hr before meal. - ALPRAZolam (XANAX) 1 mg tablet Take 1 tablet by mouth once daily as needed for anxiety for up to 30 days. - metFORMIN ER (GLUCOPHAGE XR) 500 mg 24 hr tablet Take 4 tablets by mouth daily with breakfast. - lisinopril (ZESTRIL) 10 mg tablet Take 1 tablet by mouth (more content not included)... Normal [facility] Inital Evaluation (1) - PTon 12-13-2023 Inital Evaluation (1) - PT [facility] Physical Therapy [facility] [address] [place] [address]. [address] [place] [address] / REHABILITATION SERVICES INITIAL EVALUATION MR#: [id number] Acct: [id number] Name: GALA YUN Rep #: [id number] : 1980 43 From: Fletcher Wei PT, Cert. T, OCS Referring Dr.: Holland Mo MD Status: REG RCR Insurance: [facility] SELF PAY INSURANCE Patient's Visit Information Visit Information Visit Information: GALA YUN is a 43 year old M referred to Physical Therapy by Holland Mo MD with a diagnosis of S/P TOTAL HIP RESURFACING. Date of Evaluation: 12/13/23 Physical Therapist: Fletcher Wei, PT, Cert MDT, OCS Visit Plan Frequency: 2x /Week Duration: 8 WEEKS Plan: S/P RIGHT BSR ,TOTAL HIP RESURFACING 10/20/23 SEE PROTOCOL PT INTERVENTIONS ROM HIP ,FLEXABILITY ,STRENGTHENING QUADS/HAMS/HIP ,CORE STRENGTHENING ,FUNCTIONAL STRENGTHENING AND AEROBIC EX'S Subjective Subjective: This 43 y/o male presents to physical therapy with s/p right BHR with hip resurfacing done by 10/20/[address] Moran at [facility] . Patient was d/c 10/20 . Patient 50% PWB RLE with crutches 6 weeks . Patient was WBAT RLE 11/30 then gradually weaned crutches did x-rays looked. Patient had lateral hip approach . Current restriction no impact. Patient has h/o of right anterior hip impingement due to labral repair with microfracture 2021 and 2022 labral with revision with Dr Leyva at [facility]. Patient tired PT made symptoms worse and had MRI showed symptoms worsening thus referred to . Patient global hip pain c/o stabbing radiating otherwise dull ache.Stopped oxycodone . Denies paresthesia/tingling -. Patient pain affects sleeping. Aggravating factors walking/standing affects ADLS /housework tasks . Patient is active major sports golf. Patient condition affects. 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: Pain Right Hip: Pain Intensity (Out of 10): 5 Pain Intensity Range: 10 Objective Objective: POSTURE: WFL SKIN: incision well approximated lateral NEURO: denies paresthesia/tingling GAIT : reciprocal pattern decrease stance time RLE antalgic gait PROM: hip flexion 100 degrees ,IR 10 degrees ,40 degrees ER ,extension 10 degrees MMT: quads 4/5 ,hamstrings 4/5 ,( peak force) hip abduction 10.1 ,hip flexion 21.1 SLS: < 10SEC lateral drops Balance/Special Test Scores Lower Extremity Functional Score: 31 Goals Goal 1:: Patient to be I with HEP for hip Goal Time Frame: 6-8 Weeks Goal 2:: Patient to normalize gait Goal Time Frame: 6-8 Weeks Goal 3:: Patient to improve peak force hip abductors and hip flexion by 10-15 # strength to improve function Goal Time Frame: 6-8 Weeks Goal 4:: Patient to demonstrate 75% improvement with decrease pain and improved function Goal Time Frame: 6-8 Weeks Goal 5:: Patient improve LFES score by 10 points to improve QOL and function and gait Goal Time Frame: 6-8 Weeks Rehabilitation Potential Physical Therapy Diagnosis: This patient underwent s/p right BHR S/P total hip resurfacing with decrease ROM ,weakness , pain causes decrease gait and ADLS /job demands thus benefit from skilled PT Rehabilitation Potential: Good Anticipated Interventions Patient/Client Instruction: Educate patient on: Condition and Plan of Care For the Purpose of:: To decrease pain, To increase ROM, To improve muscle performance and motor function, To improve ability to perform ADL's, To increase tolerance to activity/condition/po sition, To improve ability of physical actions for home/community/work/l eisure, To improve health of tissue, To decrease soft tissue restriction, To increase flexibility/ROM, To improve endurance, To improve balance and To improve tolerance to ADL's Therapeutic Exercise to Include: Strength training, Endurance training, Balance training, Flexibilty training and Stephanie Exercises Comment: hip/quads/hams For the Purpose of:: To decrease pain, To increase ROM, To improve muscle performance and motor function, To improve ability to perform ADL's, To increase tolerance to activity/condition/po sition, To improve health of tissue, To decrease soft tissue restriction, To increase flexibility/ROM, To improve endurance, To improve balance, To reduce risk of recurrence and To improve health and function Text: Thank you for the opportunity to evaluate your patient. For Medicare and Medicare HMO plans, please review the plan of care and approve it. It will need to be FAXED BACK to us at [phone] for Medicare purposes. For Medicare only, by signing this I certify the plan of care. Please let me know if there are questions or concerns regarding this plan of care. Physician Signature: Date : 12/16/23 1000 CC: Dr. Vesta Stallworth MD; Holland oM MD DD: (more content not included)... 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 He is here today for x-rays and clinical check. He has been continuing with the HEP. Slower start initially due to knee swelling and pain making it difficult for him to do knee to chest exercises, as well. He is primarily taking Tylenol during the day. Oxycodone at night. He has run out of Baclofen and would like a refill of this today. Taking Celebrex 100mg BID. Recovery has been a different pain than he had preop. But feels he's improving as far as movement. Eager to get moving. No reported issues with regard to his incision. Ambulating with 2 crutches. Completed ASA course for DVT ppx. Exam: RLE ROM 0 - 100 degrees, painless. Mild swelling appropriate for post-op . There is no expressible drainage from the incision. No surrounding erythema or cellulitis. Limb Lengths are equal Abductor Strength is 3/5 Able to do SLR without difficulty 4/5 quad strength. Ambulates in today without a limp, assist device - crutches - 50% weightbearing. Imagin12/01/23 Right Hip Plain Films have been reviewed per radiologist's report. Again seen is postsurgical change of resurfacing right hip arthroplasty with satisfactory alignment with intact hardware. No acute fracture. Postoperative soft tissue gas has resolved. Remainder unchanged. These images will serve as baseline images moving forward. A/P: - RTC 10-12 weeks for clinical check with Dr. Mo or Tereza Diego. No x-rays necessary. If they feel things are going well at that time and don't need to come in for a visit, OK to send us a [employer] message and cancel the visit. We can then get them set up for a 1 year follow up visit, with x-rays at that time (order will need to be placed). OK to communicate on [employer]. - Wound appears pristine, steristrips removed - OK to shower/bathe - Medication Rx's given today: will refill Baclofen + Oxy - DVT ppx: Completed course of ASA after 4 weeks - Completed Iron + Vitamin C after 4 weeks post-op - Script given for PT --> direct lateral/BHR protocol, OK to progress to WBAT, OK for abduction against gravity - Reminded of dental prophylaxis precautions - Discussed return to driving instructions --> OK to drive so long as the patient is off narcotics and is able to defensively drive. Re-directed to our pre-operative surgical packet. - Copy of operative report given to patient today. - Complete 8 week Celebrex course - HRA activity packet reviewed/provided today. No high impact activity x1 year. - Completed 3 week Doxycycline course Months post-op: 6 weeks Patient seen under the supervision of Dr. Migue Ramon. Marya Wild RN --> nurse to Dr. Holland Mo December 01, 2023 2:00 PM Referring Provider: HOLLAND MO [[id number]] Allergies As of Date: 12/01/2023 Noted Allergy Reaction PREDNISONE 01/16/2019 5 - Intolerance Comments: Did not tolerate and would not take again--not sure the exact adverse effect. Can take other steroids Date Reviewed: 12/01/2023 Reviewed by: Lori Jordan OCCA - Fully Assessed Reason for Visit: Post Op [174] Pain [78] Primary Visit Diagnosis:S/P total hip resurfacing [Z96.649] Prescriptions as of 12/02/2023 - baclofen 10 mg tablet Take 1 tablet by mouth three times a day as needed (muscle spasms). - oxyCODONE IR (ROXICODONE) 5 mg immediate release tablet Take 1 tablet by mouth every 6 hours as needed for up to 7 days. - omeprazole (PRILOSEC) 20 mg capsule Take 1 capsule by mouth daily before breakfast. 1/2 hr before meal. - ALPRAZolam (XANAX) 1 mg tablet Take 1 tablet by mouth once daily as needed for anxiety for up to 30 days. - metFORMIN ER (GLUCOPHAGE XR) 500 mg 24 hr tablet Take 4 tablets by mouth daily with breakfast. - lisinopril (ZESTRIL) 10 mg tablet Take 1 tablet by mouth once daily. - atorvastatin (LIPITOR) 20 mg tablet Take 1 tablet by mouth once daily. - aspirin, enteric coated (ASPIRIN, ENTERIC COATED) 81 mg EC tablet Take 1 tablet by mouth two times a day. - celecoxib (CELEBREX) 100 mg capsule Take 1 capsule by mouth two times a day. - cetirizine (ZYRTEC) 10 mg tablet Take (more content not included)... Normal [facility] XR HIP 3V PELV+ AP/LAT RTon 12-01-2023 XR HIP 3V PELV+ AP/LAT RT * * *Final Report* * * DATE OF EXAM: Dec 01 2023 1:30PM AOX [id number] - XR HIP 3V PELV+ AP/LAT RT / PROCEDURE REASON: multiple diagnoses * * * * Physician Interpretation * * * * HISTORY: Primary osteoarthritis of right hip Tear of right acetabular labrum, initial encounter TECHNIQUE: Frontal radiograph of the pelvis and 2 views right hip COMPARISON: 10/20/2023 RESULT: Again seen is postsurgical change of resurfacing right hip arthroplasty with satisfactory alignment with intact hardware. No acute fracture. Postoperative soft tissue gas has resolved. Remainder unchanged. IMPRESSION: POSTSURGICAL CHANGE OF RESURFACING RIGHT HIP ARTHROPLASTY WITH INTACT HARDWARE Knowledge Manager: PSCB Transcribe Date/Time: Dec 01 2023 2:02P Dictated by : KHUSHBU ALLRED MD This examination was interpreted and the report reviewed and electronically signed by: KHUSHBU ALLRED MD on Dec 01 2023 2:03PM EST [id number] Normal [facility] Krishna XR Pelvis and Hip - right AP and Lateral frogon 12-01-2023 IMPRESSION: POSTSURGICAL CHANGE OF RESURFACING RIGHT HIP ARTHROPLASTY WITH INTACT HARDWARE Knowledge Manager: PSCB Transcribe Date/Time: Dec 01 2023 2:02P Dictated by : KHUSHBU ALLRED MD This examination was interpreted and the report reviewed and electronically signed by: KHUSHBU ALLRED MD on Dec 01 2023 2:03PM EST DIVISION OF RADIOLOGY * * *Final Report* * * DATE OF EXAM: Dec 01 2023 1:30PM AOX [id number] - XR HIP 3V PELV+ AP/LAT RT / PROCEDURE REASON: multiple diagnoses * * * * Physician Interpretation * * * * HISTORY: Primary osteoarthritis of right hip Tear of right acetabular labrum, initial encounter TECHNIQUE: Frontal radiograph of the pelvis and 2 views right hip COMPARISON: 10/20/2023 RESULT: Again seen is postsurgical change of resurfacing right hip arthroplasty with satisfactory alignment with intact hardware. No acute fracture. Postoperative soft tissue gas has resolved. Remainder unchanged. DIVISION OF RADIOLOGY Provider, [facility] - 12/01/2023 * * *Final Report* * * DATE OF EXAM: Dec 01 2023 1:30PM AOX [id number] - XR HIP 3V PELV+ AP/LAT RT / PROCEDURE REASON: multiple diagnoses * * * * Physician Interpretation * * * * HISTORY: Primary osteoarthritis of right hip Tear of right acetabular labrum, initial encounter TECHNIQUE: Frontal radiograph of the pelvis and 2 views right hip COMPARISON: 10/20/2023 RESULT: Again seen is postsurgical change of resurfacing right hip arthroplasty with satisfactory alignment with intact hardware. No acute fracture. Postoperative soft tissue gas has resolved. Remainder unchanged. IMPRESSION IMPRESSION: POSTSURGICAL CHANGE OF RESURFACING RIGHT HIP ARTHROPLASTY WITH INTACT HARDWARE Knowledge Manager: PSCB Transcribe Date/Time: Dec 01 2023 2:02P Dictated by : KHUSHBU ALLRED MD This examination was interpreted and the report reviewed and electronically signed by: KHUSHBU ALLRED MD on Dec 01 2023 2:03PM EST [facility] Radiology Study observation (narrative) [facility] XR Pelvis and Hip - right AP and Lateral frogOrdered By: [facility] Provider on 12-01-2023 [facility] CNOVon 11-23-2023 CNOV Office Visit (INTMWS ) GALA YUN ([id number]) 1980 M Date Time Provider Department 11/23/23 8:40 AM VESTA STALLWORTH INTMWS During your visit today, we recorded the following information about you: Temperature Pulse Respiration Blood pressure 97.8 degrees 86/minute 16/minute 118/82 Weight 108 kg Vesta Stallworth MD 01/05/2024 11:39 PM Signed This note was created using [employer]. Subjective Gala Yun is a 43 year old male. Patient presents with: F/U 6 months SUBJECTIVE: Gala Yun is a 43 year old year old gentleman here today for 6 month follow up appointment for review of medical conditions. Patient is a 43-year-old male presenting for medication refills and follow-up after recent hip surgery. Patient reports a history of a cervical disc herniation, which he attributes to years of repetitive neck movements. He describes the pain as severe, stating that it was absent when he remained still but would become intense with movement. Patient recently underwent hip surgery and is currently in the recovery phase. He reports being sedentary for the past month, which he finds challenging due to his active lifestyle and ADHD. He is eager to resume physical activity but is currently limited to light physical therapy exercises. He reports feeling deconditioned and experiences fatigue with minimal activity, such as standing and cutting vegetables. Patient is currently taking oxycodone at night for pain management but hopes to discontinue its use soon. He has also been taking omeprazole 40 mg for heartburn, which he finds effective and is interested in continuing. He has a history of using [id number] Prilosec as needed for heartburn, which is often triggered by spicy foods. He denies nocturnal symptoms. He is also requesting a refill for alprazolam, which he has been using more frequently post-surgery. Patient is also on lisinopril, metformin, and Lipitor, and is requesting refills for these medications. He reports that his blood sugar levels were elevated during his hospital stay, which he attributes to the stress of surgery and being sedentary. He is concerned about his blood sugar levels and is trying to manage them. He denies any current issues with constipation or nerve problems. PAST MEDICAL HISTORY 07/17/2015: Atypical chest pain No date: Diabetes (HCC) No date: Elevated bilirubin Comment: ?chronic versus intermittent mild elevation sicne childhood--benign condition No date: Hyperlipidemia No date: Kidney stone on left side Comment: had to have blasted and stented (treated Dr. Mittal) No date: Vitamin D deficiency Current Outpatient Medications Medication Sig oxyCODONE IR (ROXICODONE) 5 mg immediate release tablet Take 1 tablet by mouth every 6 hours as needed for up to 7 days. aspirin, enteric coated (ASPIRIN, ENTERIC COATED) 81 mg EC tablet Take 1 tablet by mouth two times a day. celecoxib (CELEBREX) 100 mg capsule Take 1 capsule by mouth two times a day. cetirizine (ZYRTEC) 10 mg tablet Take 10 mg by mouth once daily as needed for cold/allergy symptoms. metFORMIN ER (GLUCOPHAGE XR) 500 mg 24 hr tablet Take 4 tablets by mouth daily with breakfast. lisinopril (ZESTRIL) 10 mg tablet Take 1 tablet by mouth once daily. alfuzosin SR (UROXATRAL) 10 mg 24 hr tablet Take 1 tablet by mouth daily at bedtime. atorvastatin (LIPITOR) 20 mg tablet Take 1 tablet by mouth once daily. Cholecalciferol, Vitamin D3, (VITAMIN D-3) 2,000 unit cap Take 1 capsule by mouth once daily. blood sugar diagnostic (BLOOD GLUCOSE TEST) test strip Test blood sugar(s) 1 times daily and as needed. Dx: Type 2 DM - Uncontrolled E11.9 Insulin: No Lancets lancets Test blood sugar(s) 1 times daily. Dx: Type 2 DM - Uncontrolled E11.65 Insulin: No omeprazole (PRILOSEC) 20 mg capsule Take 1 capsule by mouth daily before breakfast. 1/2 hr before meal. ALPRAZolam (XANAX) 1 mg tablet Take 1 tablet by mouth once daily as needed for anxiety for up to 30 days. Current Facility-Administered Medications Medication Dose Route Frequency perflutren lipid microspheres 1.3 mL in NaCl (PF) 0.9% 10 mL injection (DEFINITY) INTRAVENOUS DIRECTED PRN sodium chloride 0.9 % (flush) 10 mL (BD POSIFLUSH) 10 mL INTRAVENOUS DIRECTED PRN Review of Systems Objective BP 118/82 Pulse 86 Temp 36.6 ?C (97.8 ?F) Resp 16 Wt 108 kg (238 lb 1.6 oz) SpO2 98% BMI 27.52 kg/m? Last 5 Encounter Wt Readings: Date: Wt: 11/23/2023 108 kg (238 lb 1.6 oz) 10/12/2023 108 kg (238 lb) 09/15/2023 107 kg (235 lb 14.3 oz) 08/25/2023 106.8 kg (235 lb 7.2 oz) 06/14/2023 107 kg (236 lb) No waist measurement recorded Estimated body mass index is 27.52 kg/m? as calculated from the following: Height as of 10/20/23: 198.1 cm (6' 5.99). Weight as of this encounter: 108 kg (238 lb 1.6 oz). Last 5 E (more content not included)... Normal [facility] ([id number]) 1980 M Date Time Provider Department 11/11/23 [place] MO During your visit today, we recorded the following information about you: Danica Gibson 11/11/2023 2:44 PM Signed Pt called asking to speak w you to update you on his situation. He did state there is a little improvement but asked at your convenience if you might call. 10/19 s/p rt hip resurfacing... he can be reached at [phone] Heather Diego PA-C 11/17/2023 4:58 PM Signed Spoke to him via [email or web address]. CAM Allergies As of Date: 11/11/2023 Noted Allergy Reaction PREDNISONE 01/16/2019 5 - Intolerance Comments: Did not tolerate and would not take again--not sure the exact adverse effect. Can take other steroids Date Reviewed: 10/20/2023 Reviewed by: Kenzie Lindsay RN - Fully Assessed Reason for Visit: Patient Update [1234] Prescriptions as of 11/17/2023 - oxyCODONE IR (ROXICODONE) 5 mg immediate release tablet Take 1 tablet by mouth every 6 hours as needed for up to 7 days. - aspirin, enteric coated (ASPIRIN, ENTERIC COATED) 81 mg EC tablet Take 1 tablet by mouth two times a day. - acetaminophen (TYLENOL) 500 mg tablet Take 2 tablets by mouth every 8 hours. - ascorbic acid, vitamin C, (VITAMIN C) 500 mg tablet Take 1 tablet by mouth two times a day with meals for 27 doses. - baclofen 10 mg tablet Take 1 tablet by mouth three times a day. - ondansetron (ZOFRAN) 4 mg tablet Take 1 tablet by mouth every 8 hours as needed. - omeprazole (PRILOSEC) 40 mg capsule Take 1 capsule by mouth once daily. - celecoxib (CELEBREX) 100 mg capsule Take 1 capsule by mouth two times a day. - cetirizine (ZYRTEC) 10 mg tablet Take 10 mg by mouth once daily as needed for cold/allergy symptoms. - ALPRAZolam (XANAX) 1 mg tablet Take 1 tablet by mouth once daily as needed for anxiety for up to 30 days. - metFORMIN ER (GLUCOPHAGE XR) 500 mg 24 hr tablet Take 4 tablets by mouth daily with breakfast. - lisinopril (ZESTRIL) 10 mg tablet Take 1 tablet by mouth once daily. - alfuzosin SR (UROXATRAL) 10 mg 24 hr tablet Take 1 tablet by mouth daily at bedtime. - atorvastatin (LIPITOR) 20 mg tablet Take 1 tablet by mouth once daily. - Cholecalciferol, Vitamin D3, (VITAMIN D-3) 2,000 unit cap Take 1 capsule by mouth once daily. - blood sugar diagnostic (BLOOD GLUCOSE TEST) test strip Test blood sugar(s) 1 times daily and as needed. Dx: Type 2 DM - Uncontrolled E11.9 Insulin: No - Lancets lancets Test blood sugar(s) 1 times daily. 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] 07/28/2016 Type 2 diabetes mellitus without complication, *03/07/2018 Hypertension, essential [I10] 04/07/2018 Night sweats [R61] 08/06/2018 Vitamin D deficiency [E55.9] 08/06/2018 Hypertriglyceridemia [E78.1] 08/06/2018 Coronary artery disease involving [place] zhang*10/12/2023 Postoperative retention of urine [N99.89, R33.8]10/12/2023 Benign prostatic hyperplasia with lower urinary*10/12/2023 Elevated bilirubin [R17] 10/12/2023 History of kidney stones [Z87.442] 10/12/2023 A-fib (HCC) [I48.91] 10/12/2023 Encounter Status:Closed by HEATHER DIEGO on 11/17/23 [facility] Beau 11-04-2023 CNPN Telephone (ORTHMN) GALA YUN ([id number]) 1980 M Date Time Provider Department 11/04/23 [place] During your visit today, we recorded the following information about you: Danica Gibson 11/04/2023 4:03 PM Signed Patient calling w update. He is s/p rt hp resurfacing 10/19. He states he is still having post op tightness. ROM is a little better 35-40 degrees max after that he experiences pain in the quad and knee. His number is [phone]. He is requesting a refill of oxy, which will be sent under refill request Heather Diego PA-C 11/04/2023 4:03 PM Signed Spoke to Gala. He is overall doing better than previous. He states that he does not feel the pain is truly coming from his knee but more so his quad. He has some lateral thigh pain as well. He is able to do exercises without issue. He is less concerned with his symptoms as they are improving. Rx sent in refill encounter. Thanks, Tereza Allergies As of Date: 11/04/2023 Noted Allergy Reaction PREDNISONE 01/16/2019 5 - Intolerance Comments: Did not tolerate and would not take again--not sure the exact adverse effect. Can take other steroids Date Reviewed: 10/20/2023 Reviewed by: Kenzie Lindsay, RN - Fully Assessed Reason for Visit: Patient Update [1234] Prescriptions as of 11/04/2023 - oxyCODONE IR (ROXICODONE) 5 mg immediate release tablet Take 1 tablet by mouth every 4 hours as needed for up to 7 days. - aspirin, enteric coated (ASPIRIN, ENTERIC COATED) 81 mg EC tablet Take 1 tablet by mouth two times a day. - acetaminophen (TYLENOL) 500 mg tablet Take 2 tablets by mouth every 8 hours. - ascorbic acid, vitamin C, (VITAMIN C) 500 mg tablet Take 1 tablet by mouth two times a day with meals for 27 doses. - baclofen 10 mg tablet Take 1 tablet by mouth three times a day. - ondansetron (ZOFRAN) 4 mg tablet Take 1 tablet by mouth every 8 hours as needed. - doxycycline hyclate (VIBRAMYCIN) 100 mg capsule Take 1 capsule (100 mg) by mouth every 12 hours at 6 am and 6 pm for 41 doses. - omeprazole (PRILOSEC) 40 mg capsule Take 1 capsule by mouth once daily. - celecoxib (CELEBREX) 100 mg capsule Take 1 capsule by mouth two times a day. - cetirizine (ZYRTEC) 10 mg tablet Take 10 mg by mouth once daily as needed for cold/allergy symptoms. - ALPRAZolam (XANAX) 1 mg tablet Take 1 tablet by mouth once daily as needed for anxiety for up to 30 days. - metFORMIN ER (GLUCOPHAGE XR) 500 mg 24 hr tablet Take 4 tablets by mouth daily with breakfast. - lisinopril (ZESTRIL) 10 mg tablet Take 1 tablet by mouth once daily. - alfuzosin SR (UROXATRAL) 10 mg 24 hr tablet Take 1 tablet by mouth daily at bedtime. - atorvastatin (LIPITOR) 20 mg tablet Take 1 tablet by mouth once daily. - Cholecalciferol, Vitamin D3, (VITAMIN D-3) 2,000 unit cap Take 1 capsule by mouth once daily. - blood sugar diagnostic (BLOOD GLUCOSE TEST) test strip Test blood sugar(s) 1 times daily and as needed. Dx: Type 2 DM - Uncontrolled E11.9 Insulin: No - Lancets lancets Test blood sugar(s) 1 times daily. 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] 07/28/2016 Type 2 diabetes mellitus without complication, *03/07/2018 Hypertension, essential [I10] 04/07/2018 Night sweats [R61] 08/06/2018 Vitamin D deficiency [E55.9] 08/06/2018 Hypertriglyceridemia [E78.1] 08/06/2018 Coronary artery disease involving [place] zhang*10/12/2023 Postoperative retention of urine [N99.89, R33.8]10/12/2023 Benign prostatic hyperplasia with lower urinary*10/12/2023 Elevated bilirubin [R17] 10/12/2023 History of kidney stones [Z87.442] 10/12/2023 A-fib (HCC) [I48.91] 10/12/2023 Encounter Status:Closed by HEATHER DIEGO on 11/04/23 [facility] 10-31-2023 CNPN Telephone (ORTHMN) GALA YUN ([id number]) 1980 M Date Time Provider Department 10/31/23 [place] ORTHFL During your visit today, we recorded the following information about you: Danica Gibson 10/31/2023 8:37 AM Signed Patient is s/p 10/20/23 total hip resurfacing. He is calling today stating he is doing the exercises given to him but is asking if he is to start out-patient physical therapy. He also asked about bending his knee and progress or lack of as he is performing the exercises. He can be reached at [phone] Marya Wild, DOLORES 10/31/2023 11:02 AM Signed Spoke with Gala. Discussed with him that we will plan to initiate outpatient PT at 6 weeks post-op, once we progress him appropriately. We don't want a therapist doing too much too quickly. He understands. Discussed his timeline of therapy and exercises now. He states that he is having difficulty doing the knee to chest exercises because he is only able to flex his knee 20-25 degrees. He states he doesn't particularly have swelling that is inhibiting his ability to flex, he states he feels it because of his quad. Advised him to continue to work on activating his quad and with that continue to work on flexing his knee - almost like a TKA recovery patient. I have gone over exercises to add. He is taking the Baclofen as he did start having more spasms ~1 week after surgery. He will call us back with an update if not seeing improvement. He appreciated the follow up. Allergies As of Date: 10/31/2023 Noted Allergy Reaction PREDNISONE 01/16/2019 5 - Intolerance Comments: Did not tolerate and would not take again--not sure the exact adverse effect. Can take other steroids Date Reviewed: 10/20/2023 Reviewed by: Kenzie Lindsay RN - Fully Assessed Reason for Visit: Patient Question [4457] Prescriptions as of 10/31/2023 - oxyCODONE IR (ROXICODONE) 5 mg immediate release tablet Take 1 tablet by mouth every 4 hours as needed for up to 7 days. Do not start before October 28, 2023. - aspirin, enteric coated (ASPIRIN, ENTERIC COATED) 81 mg EC tablet Take 1 tablet by mouth two times a day. - acetaminophen (TYLENOL) 500 mg tablet Take 2 tablets by mouth every 8 hours. - ascorbic acid, vitamin C, (VITAMIN C) 500 mg tablet Take 1 tablet by mouth two times a day with meals for 27 doses. - baclofen 10 mg tablet Take 1 tablet by mouth three times a day. - ondansetron (ZOFRAN) 4 mg tablet Take 1 tablet by mouth every 8 hours as needed. - doxycycline hyclate (VIBRAMYCIN) 100 mg capsule Take 1 capsule (100 mg) by mouth every 12 hours at 6 am and 6 pm for 41 doses. - omeprazole (PRILOSEC) 40 mg capsule Take 1 capsule by mouth once daily. - celecoxib (CELEBREX) 100 mg capsule Take 1 capsule by mouth two times a day. - cetirizine (ZYRTEC) 10 mg tablet Take 10 mg by mouth once daily as needed for cold/allergy symptoms. - ALPRAZolam (XANAX) 1 mg tablet Take 1 tablet by mouth once daily as needed for anxiety for up to 30 days. - metFORMIN ER (GLUCOPHAGE XR) 500 mg 24 hr tablet Take 4 tablets by mouth daily with breakfast. - lisinopril (ZESTRIL) 10 mg tablet Take 1 tablet by mouth once daily. - alfuzosin SR (UROXATRAL) 10 mg 24 hr tablet Take 1 tablet by mouth daily at bedtime. - atorvastatin (LIPITOR) 20 mg tablet Take 1 tablet by mouth once daily. - Cholecalciferol, Vitamin D3, (VITAMIN D-3) 2,000 unit cap Take 1 capsule by mouth once daily. - blood sugar diagnostic (BLOOD GLUCOSE TEST) test strip Test blood sugar(s) 1 times daily and as needed. Dx: Type 2 DM - Uncontrolled E11.9 Insulin: No - Lancets lancets Test blood sugar(s) 1 times daily. Dx: Type 2 DM - Uncontrolled E11.65 Insulin: No Facility-Administered Medications as of 10/31/2023 - perflutren lipid microspheres 1.3 mL in NaCl (PF) 0.9% 10 mL injection (DEFINITY) - sodium chloride 0.9 % (flush) 10 mL (BD POSIFLUSH) Problem List As Of Date 10/31/2023 Noted Resolved Panic [F41.0] 06/19/2014 Social phobia [F40.10] 06/19/2014 FH: hemochromatosis [Z83.49] 07/16/2014 Dysthymia [F34.1] 07/17/2014 Recurrent major depressive disorder, in partial*06/20/2015 Atypical chest pain [R07.89] 07/17/2015 09/04/2021 ADHD (attention deficit hyperactivity disorder)*12/19/2015 Body dysmorphic disorder [F45.22] 07/28/2016 Type 2 diabetes mellitus without complication, *03/07/2018 Hypertension, essential [I10] 04/07/2018 Night sweats [R61] 08/06/2018 Vitamin D deficiency [E55.9] 08/06/2018 Hypertriglyceridemia [E78.1] 08/06/2018 Coronary artery disease involving [place] zhang*10/12/2023 Postoperative retention of urine [N99.89, R33.8]10/12/2023 Benign prostatic hyperplasia with lower urinary*10/12/2023 Elevated bilirubin [R17] 10/12/2023 History of kidney stones [Z87.442] 10/12/2023 A-fib (HCC) [I48.91] 10/12/2023 Encounter S (more content not included)... Normal 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 Returned call at earliest opportunity. Patient is status post R on 10/20/[address] Mo. Patient reports the following: Pain in his hip and knee and progressive swelling in his knee. Patient having difficulty sleeping and bearing weight because of the pain. Given the remote nature of this call, I was not able to perform a formal physical exam. Patient is able to flex and extend his knee with pain, reports warm and well perfused toes. Denies numbness and tingling. Recommendations: Increase oxycodone from q4hr to q3hr and continue scheduled tylenol. If patient experiences fevers, chills, numbness, tingling, purulent drainage from his incision or pain that is unresponsive to pain medication, he should seek care at his local emergency department. Advised to continue per current management. Patient is requested to visit us at [facility] [place] [facility] or nearest ED if there is any concern so we may assess in person. Concerns addressed and questions answered appropriately. Patient in agreement with plan and verbalized understanding. SIGNATURE: Renetta Graham MD PATIENT NAME: Gala Yun DATE: October 24, 2023 TIME: 7:39 AM PAGER/CONTACT #: [phone] Allergies As of Date: 10/24/2023 Noted Allergy Reaction PREDNISONE 01/16/2019 5 - Intolerance Comments: Did not tolerate and would not take again--not sure the exact adverse effect. Can take other steroids Date Reviewed: 10/20/2023 Reviewed by: Kenzie Lindsay RN - Fully Assessed Prescriptions as of 10/25/2023 - aspirin, enteric coated (ASPIRIN, ENTERIC COATED) 81 mg EC tablet Take 1 tablet by mouth two times a day. - acetaminophen (TYLENOL) 500 mg tablet Take 2 tablets by mouth every 8 hours. - ascorbic acid, vitamin C, (VITAMIN C) 500 mg tablet Take 1 tablet by mouth two times a day with meals for 27 doses. - baclofen 10 mg tablet Take 1 tablet by mouth three times a day. - oxyCODONE IR (ROXICODONE) 5 mg immediate release tablet Take 1 tablet by mouth every 4 hours as needed for up to 7 days. - ondansetron (ZOFRAN) 4 mg tablet Take 1 tablet by mouth every 8 hours as needed. - doxycycline hyclate (VIBRAMYCIN) 100 mg capsule Take 1 capsule (100 mg) by mouth every 12 hours at 6 am and 6 pm for 41 doses. - ferrous sulfate 325 mg (65 mg iron) tablet Take 1 tablet by mouth daily with lunch for 7 doses. - omeprazole (PRILOSEC) 40 mg capsule Take 1 capsule by mouth once daily. - celecoxib (CELEBREX) 100 mg capsule Take 1 capsule by mouth two times a day. - cetirizine (ZYRTEC) 10 mg tablet Take 10 mg by mouth once daily as needed for cold/allergy symptoms. - ALPRAZolam (XANAX) 1 mg tablet Take 1 tablet by mouth once daily as needed for anxiety for up to 30 days. - metFORMIN ER (GLUCOPHAGE XR) 500 mg 24 hr tablet Take 4 tablets by mouth daily with breakfast. - lisinopril (ZESTRIL) 10 mg tablet Take 1 tablet by mouth once daily. - alfuzosin SR (UROXATRAL) 10 mg 24 hr tablet Take 1 tablet by mouth daily at bedtime. - atorvastatin (LIPITOR) 20 mg tablet Take 1 tablet by mouth once daily. - Cholecalciferol, Vitamin D3, (VITAMIN D-3) 2,000 unit cap Take 1 capsule by mouth once daily. - blood sugar diagnostic (BLOOD GLUCOSE TEST) test strip Test blood sugar(s) 1 times daily and as needed. Dx: Type 2 DM - Uncontrolled E11.9 Insulin: No - Lancets lancets Test blood sugar(s) 1 times daily. Dx: Type 2 DM - Uncontrolled E11.65 Insulin: No Facility-Administered Medications as of 10/25/2023 - perflutren lipid microspheres 1.3 mL in NaCl (PF) 0.9% 10 mL injection (DEFINITY) - sodium chloride 0.9 % (flush) 10 mL (BD POSIFLUSH) Problem List As Of Date 10/24/2023 Noted Resolved Panic [F41.0] 06/19/2014 Social phobia [F40.10] 06/19/2014 FH: hemochromatosis [Z83.49] 07/16/2014 Dysthymia [F34.1] 07/17/2014 Recurrent major depressive disorder, in partial*06/20/2015 Atypical chest pain [R07.89] 07/17/2015 09/04/2021 ADHD (attention deficit hyperactivity disorder)*12/19/2015 Body dysmorphic disorder [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 Normal [facility] Basic metabolic 2000 panelon 10-21-2023 Anion gap [Moles/Vol] 10 mmol/L Normal 8-15 [facility] Comment on above: Order Comment: Speci men Type: BLOOD SPECIMENOrdering Facility: [facility] Address: [address] [place], [place] [address] Performed By: #### 2 4321-2 ####[facility] LABCLIA [id number] [place] [address] [place] Calcium [Mass/Vol] 8.5 mg/dL Normal 8.5-10.2 [facility] Comment on above: Order Comment: Speci men Type: BLOOD SPECIMENOrdering Facility: [facility] Address: [address] [place] [address] Performed By: #### 2 4321-2 ####[facility] LABCLIA [id number] [place] [address] [place] Chloride [Moles/Vol] 100 mmol/L Normal 98-107 [facility] Comment on above: Order Comment: Speci men Type: BLOOD SPECIMENOrdering Facility: [facility] Address: [address] [place] [address] Performed By: #### 2 4321-2 ####[facility] LABCLIA [id number] [place] [address] [place] CO2 [Moles/Vol] 23 mmol/L Normal 22-30 [facility] Comment on above: Order Comment: Speci men Type: BLOOD SPECIMENOrdering Facility: [facility] Address: [address] [place] [address] Performed By: #### 2 4321-2 ####[facility] LABCLIA [id number] [place] [address] [place] Creatinine [Mass/Vol] 0.86 mg/dL Normal 0.73-1.22 [facility] Comment on above: Order Comment: Speci men Type: BLOOD SPECIMENOrdering Facility: [facility] Address: [address] [place], [place] [address] Performed By: #### 2 4321-2 ####[facility] LABCLIA [id number] [place] [address] [place] Creatinine and Glomerular filtration rate.predicted panel (S/P/Bld) 109 mL/min/1.73m??? Normal >=60 [facility] Comment on above: Order Comment: Aryan iniguez Type: BLOOD SPECIMENOrdering Facility: [facility] Address: [address] [place] [address] Result Comment: Shahrzad mated Glomerular Filtration Rate (eGFR) is calculated using the 2020 CKD-EPI creatinine equation. This equation utilizes serum creatinine, sex, and age as parameters. The creatinine assay has traceable calibration to isotope dilution-mass spectrometry. Refer to KDIGO guidelines for clinical interpretation. In patients with unstable renal function, e.g. those with acute kidney injury, the eGFR may not accurately reflect actual GFR. Performed By: #### 2 4321-2 ####[facility] LABIA [id number] [place] [address] [place] Glucose [Mass/Vol] 153 mg/dL High 74-99 [facility] Comment on above: Order Comment: Aryan iniguez Type: BLOOD SPECIMENOrdering Facility: [facility] Address: [address] [place] [address] Result Comment: The [place] Diabetes Association (ADA) provides guidance for cutoff values for fasting glucose and random glucose. The ADA defines fasting as no caloric intake for at least 8 hours. Fasting plasma glucose results between 100 to 125 mg/dL indicate increased risk for diabetes (prediabetes). Fasting plasma glucose results greater than or equal to 126 mg/dL meet the criteria for diagnosis of diabetes. In the absence of unequivocal hyperglycemia, results should be confirmed by repeat testing. In a patient with classic symptoms of hyperglycemia or hyperglycemic crisis, random plasma glucose results greater than or equal to 200 mg/dL meet the criteria for diagnosis of diabetes. Reference: Standards of Medical Care in Diabetes 2016, [place] [employer] Association. Diabetes Care. 2016.39(Suppl 1). Performed By: #### 2 4321-2 ####[facility] LABIA [id number] [place] [address] [place] Potassium [Moles/Vol] Normal [facility] Comment on above: Order Comment: Aryan iniguez Type: BLOOD SPECIMENOrdering Facility: [facility] Address: [address] [place] [address] Result Comment: Unab le to assay due to interference from hemolysis. Suggest reorder as clinically indicated. Performed By: #### 2 4321-2 ####[facility] LABCLIA [id number] [place] [address] [place] Sodium [Moles/Vol] 133 mmol/L Low 136-144 [facility] Comment on above: Order Comment: Speci men Type: BLOOD SPECIMENOrdering Facility: [facility] Address: [address] [place] [address] Performed By: #### 2 4321-2 ####[facility] LABCLIA [id number] [place] [address] [place] Urea nitrogen [Mass/Vol] 14 mg/dL Normal 9-24 [facility] Comment on above: Order Comment: Speci men Type: BLOOD SPECIMENOrdering Facility: [facility] Address: [address] [place] [address] Performed By: #### 2 4321-2 ####[facility] LABIA [id number] [place] [address] [place] CBC panel Auto (Bld)on 10-20 Erythrocyte distribution width (RBC) [Ratio] 12.8 % Normal 11.5-15.0 [facility] Comment on above: Order Comment: Speci men Type: BLOOD SPECIMENOrdering Facility: [facility] Address: [address] [place] [address] Performed By: #### 5 8410-2 ####[facility] LABIA [id number] [place] [address] [place] Hematocrit (Bld) [Volume fraction] 35.8 % Low 39.0-51.0 [facility] Comment on above: Order Comment: Speci men Type: BLOOD SPECIMENOrdering Facility: [facility] Address: [address] [place] [address] Performed By: #### 5 8410-2 ####[facility] LABIA [id number] [place] [address] [place] Hemoglobin (Bld) [Mass/Vol] 12.7 g/dL Low 13.0-17.0 [facility] Comment on above: Order Comment: Speci men Type: BLOOD SPECIMENOrdering Facility: [facility] Address: [address] [place] [address] Performed By: #### 5 8410-2 ####[facility] LABIA [id number] [place] [address] [place] MCH (RBC) [Entitic mass] 30.7 pg Normal 26.0-34.0 [facility] Comment on above: Order Comment: Speci men Type: BLOOD SPECIMENOrdering Facility: [facility] Address: [address] [place] [address] Performed By: #### 5 8410-2 ####[facility] LABIA [id number] [place] [address] [place] MCHC (RBC) [Mass/Vol] 35.5 g/dL Normal 30.5-36.0 [facility] Comment on above: Order Comment: Speci men Type: BLOOD SPECIMENOrdering Facility: [facility] Address: [address] [place] [address] Performed By: #### 5 8410-2 ####[facility] LABIA [id number] [place] [address] [place] MCV (RBC) [Entitic vol] 86.5 fL Normal 80.0-100.0 [facility] Comment on above: Order Comment: Speci men Type: BLOOD SPECIMENOrdering Facility: [facility] Address: [address] [place] [address] Performed By: #### 5 8410-2 ####[facility] LABIA [id number] [place] [address] [place] Nucleated RBC (Bld) [#/Vol] 10*3/uL Normal <0.01 [facility] Comment on above: Order Comment: Speci men Type: BLOOD SPECIMENOrdering Facility: [facility] Address: [address] [place] [address] Performed By: #### 5 8410-2 ####[facility] LABIA [id number] [place] [address] [place] Platelet mean volume (Bld) [Entitic vol] 8.7 fL Low 9.0-12.7 [facility] Comment on above: Order Comment: Speci men Type: BLOOD SPECIMENOrdering Facility: [facility] Address: [address] [place] [address] Performed By: #### 5 8410-2 ####[facility] [id number] [place] [address] [place] Platelets (Bld) [#/Vol] 136 10*3/uL Low 150-400 [facility] Comment on above: Order Comment: Speci men Type: BLOOD SPECIMENOrdering Facility: [facility] Address: [address] [place] [address] Result Comment: Resu lts checked and verified.No clot detected. Performed By: #### 5 8410-2 ####[facility] [id number] [place] [address] [place] RBC (Bld) [#/Vol] 4.14 10*6/uL Low 4.20-6.00 [facility] Comment on above: Order Comment: Speci men Type: BLOOD SPECIMENOrdering Facility: [facility] Address: [address] [place] [address] Performed By: #### 5 8410-2 ####[facility] LABIA [id number] [place] [address] [place] WBC (Bld) [#/Vol] 7.15 10*3/uL Normal 3.70-11.00 [facility] Comment on above: Order Comment: Speci men Type: BLOOD SPECIMENOrdering Facility: [facility] Address: [address] [place] [address] [place] [address] Performed By: #### 5 8410-2 ####[facility] LABNAT [id number] [employer] [id number] [place] Alexis 10-21-2023 CNDS HNO ID: [id number] Author: HOLLAND MO MD Service: Orthopaedic Surgery Author Type: Resident Type: Discharge Summary Filed: 10/24/2023 18:11 Note Text: Attestation signed by Holland Mo MD at 10/24/2023 6:11 PM Agree with above. Patient underwent a RIGHT hip resurfacing arthroplasty (HRA) in the setting of right hip osteoarthritis. Routine [place] hip precautions (50% weight bearing as per operative report, no active abduction against gravity for 6 weeks, okay to abduct in the plane of gravity immediately, no high-impact activity for 1 year after surgery) - no deviation from standard protocol. NSAIDs (Celebrex or Mobic) for heterotopic ossification prophylaxis x8wks, ASA 81mg BID for DVT prophylaxis. Sciatic nerve was intact at the time of discharge. A home exercise program was given to the patient and he was educated on this. Silver dressing off after 1 week. Plan for follow-up in approximately 6 weeks with our team for x-rays, wound check, progress check, and plans for activity advancement. Holland Mo MD journeyman mechanic, [facility] Musculoskeletal Oncologist and Total Hip/Knee Surgeon October 24, 2023 6:11 PM ORTHOPEDIC SURGERY DISCHARGE SUMMARY ADMISSION DATE: 10/20/2023 DISCHARGE DATE: 10/21/2023 Attending Physician: Holland Mo MD Reason for Hospitalization: Right BHR Admitting Diagnosis: Right hip OA Discharge Diagnosis: Right hip OA Additional Diagnoses: ACTIVE PROBLEM LIST Panic Social Phobia Fh: Hemochromatosis Dysthymia Recurrent Major Depressive Disorder, in Partial Remission (Hcc) Adhd (Attention Deficit Hyperactivity Disorder), Inattentive Type Body Dysmorphic Disorder Type 2 Diabetes Mellitus Without Complication, Without Long-Term Current Use of Insulin (Hcc) Hypertension, Essential Night Sweats Vitamin D Deficiency Hypertriglyceridemia Coronary Artery Disease Involving Resighini 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 It was determined he would benefit from surgery in the form of a Right [place] Hip Resurfacing. The procedure, its risks, benefits, and potential complications were discussed in detail with the patient prior to surgery. Understanding of all topics was conveyed by the patient, and consent was given for surgery. The patient was electively admitted to the [facility] on 10/20/2023. Surgery was scheduled and on 10/20/2023 he underwent a Procedure(s) (LRB): ARTHROPLASTY HIP (Right). The procedure was tolerated well and he was sent to the post operative recovery room in stable condition, where he also did well. He was subsequently sent to his hospital room for postoperative management. Once on the floor his postoperative course was unremarkable and he did well. His diet was advanced which he tolerated. His pain was well controlled and was eventually transitioned to oral medication alone prior to discharge. He worked with Physical and Occupational Therapy who recommended he be discharged. His dressing remained clean dry and intact throughout his stay. He remained afebrile with stable vital signs throughout his stay. He was stable for discharge on POD1. Complete and comprehensive discharge instructions were provided to the patient as well as necessary prescriptions. The patient had no further questions and was advised to call with any questions, concerns, or problems. Patient was hemodynamically stable postoperatively and postoperative labs were reviewed. Discharge Antibiotics: Prior to surgery the patient was treated with antibiotics and continued with antibiotics 24 hours postoperatively Transfers: PACU and then to the hospital surgical floor when PACU criteria was met. DVT Prophylaxis: See discharge medications section Pain Control: Oral narcotics Complications: Continued throughout the hospital course without complications. Patient Condition at Discharge: Stable Discharge Disposition: Home Other Information: N/A Discharge Activity/Weight Bearing Status: 50% Weightbearing operative extremity The patient was instructed to follow-up as per preoperative plan. Future Appointments Date Time Provider Department Center 11/23/2023 8:40 AM Vesta Stallworth MD INTWS [facility] (more content not included)... Normal [facility] NURSING PROGon 10-21-2023 NURSING PROG HNO ID: [id number] Author: KENZIE LINDSAY RN Service: ? Author Type: Registered Nurse Type: Nursing Progress Note Filed: 10/21/2023 09:59 Note Text: Other: 0950-pt ambulated with therapy. will attempt void. notified pa bladder scan 8cc this am 0700. no urgency Normal [facility] POTASSIUMon 10-21-2023 Potassium [Moles/Vol] 3.9 mmol/L Normal 3.7-5.1 [facility] Comment on above: Order Comment: Speci men Type: BLOOD SPECIMENOrdering Facility: [facility] Address: [address] [place] [address] Performed By: #### K 1 ####[facility] LABCLIA [id number] [address] [facility] THERAPY NTon 10-21-2023 THERAPY NT HNO ID: [id number] Author: SONDRA LANDERS, PT, DPT Service: Physical Therapy Author Type: Physical Therapist Type: Therapy (PT/OT/Speech/Resp) Filed: 10/21/2023 15:14 Note Text: Physical Therapy Treatment Summary SERVICE DATE: 10/21/2023 SERVICE TIME: 1417 to 1455 ROOM: [facility]30 PT 6 Clicks Score: 23 Total Joint Replacement Discharge Readiness: Cleared from Physical Therapy DISCHARGE RECOMMENDATIONS Home ASSESSMENT Response to Therapy Interventions: On-Track to Achieve Discharge Goals The patient is cleared from PT. PRECAUTIONS Weight Bearing Restrictions No abduction against gravity while lying on your side (x6wks post-op) Right Lower Extremity Weight Bearing Status: 50% PWB CURRENT HOSPITAL COURSE s/p right BHR on 10/20/[address] Mo. Relevant Past Medical History: hypertension, Afib HOME LIVING Patient Lives With: Spouse Assistance Available: 24-Hour (on the weekends) Entry To Home: Stairs, With Rail Number Of Stairs Into Home: 1 Number Of Stairs To Bed/Bath: 0 Equipment Owned: Crutch(es) PRIOR FUNCTIONAL LEVEL Within Functional Limits Ambulates without an AD. Drives. Independent with ADL's and IADl's SUBJECTIVE Patient agreeable to therapy THERAPY DIAGNOSIS Abnormalities of gait and mobility-other TREATMENT INTERVENTIONS Therapeutic Activity (94556), Gait Training (34242) Timed Code Treatment (minutes): 38 Skilled Treatment Time (minutes): 38 TRAINING AND EDUCATION PROVIDED Bed Mobility, Benefits of In-Hospital Mobility, Discharge Planning, Energy Conservation, Exercise Program, Expected Functional Level, Falls Prevention, Gait Pattern, Reduction of Deviations, Handout Issued, Home Safety, Modalities, Patient Exercise/Therapy Program Support Needs, Positioning, Precautions/Restricti ons, Role of Physical Therapy, Standing Balance, Transfers, Car Transfers THERAPEUTIC SKILLS USED Activity Dosing, Cues for Sequencing/Proper Technique for Activity FUNCTIONAL STATUS Bed Mobility Sit to Supine: Supervision Scooting: Supervision Transfers Sit To Stand: Supervision Stand To Sit: Supervision Bed to Chair Gait Supervision Gait Device: Wheeled Walker Gait Distance (feet): 100x 1, 30 x 2 Gait Deviations Right Lower Extremity: Heel strike during initial stance decreased, Stance time decreased, Step length decreased Stairs GOALS Patient will demonstrate progress with functional mobility to allow safe discharge to home with available support and/or physical assistance. Car Transfer with: Stand By Assistance Rehab Potential: Excellent Progress Toward Goals: Progressing as expected PLAN PT Frequency: Twice Daily Treatment Interventions: Education, Energy Conservation Training, Strengthening, Functional Mobility Training Plan for Next Visit: Car Transfer Training SIGNATURE: Sondra Landers PT, DPT PATIENT NAME: Gala Yun DATE: October 21, 2023 TIME: 3:13 PM Normal [facility] THERAPY NT HNO ID: [id number] Author: FIDELINA TAO OTR/L Service: Occupational Therapy Author Type: Occupational Therapist Type: Therapy (PT/OT/Speech/Resp) Filed: 10/21/2023 13:17 Note Text: Occupational Therapy Evaluation Summary SERVICE DATE: 10/21/2023 SERVICE TIME: 1143 to 1226 ROOM: [place] [address] OT 6 Clicks Score: 20 Total Joint Replacement Discharge Readiness: Cleared from Occupational Therapy DISCHARGE RECOMMENDATIONS Home Anticipated Discharge Needs: Physical Assist at Home Physical Assist at Home for: Laundry, Cleaning, Shopping, Transportation Recommended Discharge Equipment: Wheeled Walker ASSESSMENT Response to Therapy Interventions: Good Participation in Activities, On-Track to Achieve Discharge Goals Pt has demonstrated ability to complete all basic self care and functional tasks safely at level appropriate for discharge home. PRECAUTIONS Weight Bearing Restrictions No abduction against gravity while lying on your side (x6wks post-op) Right Lower Extremity Weight Bearing Status: 50% PWB CURRENT HOSPITAL COURSE s/p right BHR on 10/20/[address] Mo. Relevant Past Medical History: hypertension, Afib HOME LIVING Patient Lives With: Spouse Assistance Available: 24-Hour (on the weekends) Entry To Home: Stairs, With Rail Number Of Stairs Into Home: 1 Number Of Stairs To Bed/Bath: 0 Equipment Owned: Crutch(es) PRIOR FUNCTIONAL LEVEL Within Functional Limits Ambulates without an AD. Drives. Independent with ADL's and IADl's SUBJECTIVE Thanks for helping me figure out how to get in and out of bed COGNITION Cog 6 Start of Session Total Points (Max Score = 24): 24 (10/21/23) Cog 6 End of Session Total Points (Max Score = 24): 24 (10/21/23) 4AT Score: 0 (10/21/23) Delirium Positive/Negative: Negative (10/21/23) THERAPY DIAGNOSIS Decreased activities of daily living (ADL), Reduced mobility-other TREATMENT INTERVENTIONS Evaluation, Self Shelter Management (88485) Timed Code Treatment (minutes): 28 Skilled Treatment Time (minutes): 43 TRAINING AND EDUCATION PROVIDED Assistive Device Use, Bed Mobility, Benefits of In-Hospital Mobility, Adaptive Equipment/DME, Activity Adaptation/Compensato ry Strategies, Lower Extremity Bathing, Lower Extremity Dressing, Positioning, Precautions/Restricti ons, Toileting , Transfer - Bed to Chair, Transfer - Sit to Stand THERAPEUTIC SKILLS USED Activity Dosing, Assessment of Tolerance Including Vitals Response to Activity, Cues for Sequencing/Proper Technique for Activity, Cuing Tactile, Cuing Verbal, Cuing Visual, Movement Facilitation, Muscle Activation Facilitation, Splint Fabrication/Modificat ion, Task Analysis Learning, Therapeutic Use of Self FUNCTIONAL STATUS Activities of Daily Living Assist Level Additional Information Feeding Set Up Grooming Set Up Bathing Upper Body Set Up Bathing Lower Body Moderate Assistance Dressing Upper Body Set Up Dressing Lower Body Moderate Assistance Toileting Stand By Assistance Mobility Assist Level Additional Information Bed Mobility Supine To Sit: Contact Guard Assistance Sit To Supine: Contact Guard Assistance Sit to Stand Stand By Assistance Stand to Sit Stand By Assistance Bed to Chair Stand By Assistance Toilet/Commode Shower Functional Mobility GOALS Patient will demonstrate progress with self-care, cognitive and/or coping needs identified to allow safe discharge to home with available support and/or physical assistance. Progress Toward Goals: Progressing as expected Rehab Potential: Good PLAN OT Frequency: Discontinue Therapy Services Reasons Therapy Services Discontinued: Goals met Treatment Interventions: Education, Self Care/Home Management SIGNATURE: LISSA Salvador/Naty PATIENT NAME: Gala Yun DATE: October 21, 2023 TIME: 1:17 PM Normal [facility] THERAPY NT HNO ID: [id number] Author: SONDRA LANDERS, PT, DPT Service: Physical Therapy Author Type: Physical Therapist Type: Therapy (PT/OT/Speech/Resp) Filed: 10/21/2023 11:34 Note Text: Physical Therapy Evaluation Summary SERVICE DATE: 10/21/2023 SERVICE TIME: 0940 to 1022 ROOM: [place] [address] PT 6 Clicks Score: 23 Total Joint Replacement Discharge Readiness: Pending Physical Therapy Clearance DISCHARGE RECOMMENDATIONS Home ASSESSMENT Response to Therapy Interventions: Good Participation in Activities The patient reports increased pain with weight bearing on the right LE. He was able to ambulate although requires standing rest breaks. Anticipate safe discharge home once pain controlled. PRECAUTIONS Weight Bearing Restrictions No abduction against gravity while lying on your side (x6wks post-op) Right Lower Extremity Weight Bearing Status: 50% PWB CURRENT HOSPITAL COURSE s/p right BHR on 10/20/[address] Mo. Relevant Past Medical History: hypertension, Afib HOME LIVING Patient Lives With: Spouse Assistance Available: 24-Hour (on the weekends) Entry To Home: Stairs, With Rail Number Of Stairs Into Home: 1 Number Of Stairs To Bed/Bath: 0 Equipment Owned: Crutch(es) PRIOR FUNCTIONAL LEVEL Within Functional Limits Ambulates without an AD. Drives. Very active (walks 4-5 miles). SUBJECTIVE Patient agreeable to therapy THERAPY DIAGNOSIS Abnormalities of gait and mobility-other TREATMENT INTERVENTIONS Evaluation, Therapeutic Activity (29350), Gait Training (49464) Timed Code Treatment (minutes): 25 Skilled Treatment Time (minutes): 42 TRAINING AND EDUCATION PROVIDED Bed Mobility, Benefits of In-Hospital Mobility, Discharge Planning, Energy Conservation, Exercise Program, Expected Functional Level, Falls Prevention, Gait Pattern, Reduction of Deviations, Handout Issued, Home Safety, Modalities, Patient Exercise/Therapy Program Support Needs, Positioning, Precautions/Restricti ons, Role of Physical Therapy, Standing Balance, Transfers THERAPEUTIC SKILLS USED Activity Dosing, Cues for Sequencing/Proper Technique for Activity FUNCTIONAL STATUS Bed Mobility Sit to Supine: Stand By Assistance (using a leg laboratory administrative director) Scooting: Stand By Assistance Transfers Sit To Stand: Stand By Assistance Stand To Sit: Stand By Assistance Bed to Chair Gait Stand By Assistance Gait Device: Wheeled Walker Gait Distance (feet): 200 Gait Deviations Right Lower Extremity: Heel strike during initial stance decreased, Stance time decreased, Step length decreased Stairs GOALS Patient will demonstrate progress with functional mobility to allow safe discharge to home with available support and/or physical assistance. Car Transfer with: Stand By Assistance Rehab Potential: Excellent PLAN PT Frequency: Twice Daily Treatment Interventions: Education, Energy Conservation Training, Strengthening, Functional Mobility Training Plan for Next Visit: Car Transfer Training SIGNATURE: Sondra Landers PT, DPT PATIENT NAME: Gala Yun DATE: October 21, 2023 TIME: 11:34 AM Normal [facility] ANES POSTPROC EVALon 024 ANES POSTPROC EVAL HNO ID: [id number] Author: SERGIO NUÑEZ MD Service: ? Author Type: Anesthesiologist Type: Anesthesia Postprocedure Evaluation Filed: 10/20/2023 15:23 Note Text: POST ANESTHESIA EVALUATION NOTE : 1980 Procedure Summary Date: 10/20/23 Room / Location: [address] [facility] Anesthesia Start: 1034 Anesthesia Stop: 1430 Procedure: ARTHROPLASTY HIP (Right: Hip) Diagnosis: Primary osteoarthritis of right hip Tear of right acetabular labrum, initial encounter (Primary osteoarthritis of right hip [M16.11]) (Tear of right acetabular labrum, initial encounter [S73.191A]) Surgeons: Holland Mo MD Responsible Provider: Sergio Nuñez MD Anesthesia Type: spinal ASA Status: 3 Anesthesia Type: spinal Last Vitals Vitals Value Taken Time BP 115/84 10/20/23 1515 Temp 36.8 ?C (98.2 ?F) 10/20/23 1430 Pulse 43 10/20/23 1521 Resp 10 10/20/23 1521 SpO2 94 % 10/20/23 1521 Vitals shown include unfiled device data. Post Anesthesia Patient Status Patient Evaluation: PACU. Neurological Status: aware and responsive. Pulmonary Status: breathing comfortably on room air Airway Control: returned to baseline unsupported. Cardiovascular Status: stable. Pain Management: clinically adequate Postoperative Hydration: acceptable. Intraoperative Events: no significant anesthesia events Post Operative Nausea/Vomiting Status: no significant post operative nausea or vomiting Recommendation: continue current plan of care. Anesthesia Observations No Documentation SIGNATURE: Sergio Nuñez MD PATIENT NAME: Gala Yun DATE: October 20, 2023 TIME: 3:23 PM CSN: [id number] Normal [facility] ANES PRE-OPon 10-20-2023 ANES PRE-OP HNO ID: [id number] Author: RIGOBERTO BULLARD MD Service: ? Author Type: Anesthesiologist Type: Anesthesia Preprocedure Evaluation Filed: 10/20/2023 10:17 Note Text: ANESTHESIOLOGY DAY OF SURGERY NOTE : 1980 Procedure Information Date/Time: 10/20/23 1043 Procedure: ARTHROPLASTY HIP (Right: Hip) Location: [address] Surgeons: Holland Mo MD Estimated body mass index is 27.5 kg/m? as calculated from the following: Height as of this encounter: 198.1 cm (6' 6). Weight as of this encounter: 108 kg (238 lb). Most recent hematocrit and potassium results: Hematocrit 46.8 10/12/2023 Potassium 4.9 10/12/2023 Relevant Problems No relevant active problems I - PHYSICAL EVALUATION AIRWAY Patient intubated: No. Tracheostomy tube not present Mallampati: II. TM distance: >3 FB. Neck ROM: full ROM without neurological symptoms. Mouth opening: adequate. Short neck: no. Thick neck: no DENTAL Dental findings: teeth intact. II - ANESTHESIA PLAN ASA Score: 3 Anesthetic Plan: spinal The patient is not a current smoker. NPO Status: adequate Beta Trinity Monitoring Plan Monitoring plan: standard ASA. Post Procedure Analgesic Plan Postoperative analgesic plan: multimodal analgesia and parenteral or oral opioids. Informed Consent Anesthetic risks, benefits, alternatives, personnel and consent discussed: yes. Patient / Responsible Alliance Party agrees to proceed: yes Patient / Surrogate agrees to blood products: Yes Vitals Value Taken Time BP 150/87 10/20/23930 Pulse 61 10/20/23930 Resp 15 10/20/23930 Temp 36.3 ?C (97.3 ?F) 10/20/23930 SpO2 98 % 10/20/23930 Facility-Administered Medications as of 10/20/2023 Medication Dose Route Frequency lidocaine (PF) 10 mg/mL (1 %) 1-2 mg injection (XYLOCAINE) 0.1-0.2 mL INTRADERMAL PRN Or lidocaine 1% 0.25 mL subcutaneous j-tip syringe (XYLOCAINE) 0.25 mL SUBCUTANEOUS PRN lactated ringers iv infusion 5-30 mL/hr INTRAVENOUS CONTINUOUS NaCl 0.9% iv flush bag 20 mL INTRAVENOUS PRN ceFAZolin iv piggyback 2 g in D5W (iso-osmotic) 100 mL (ANCEF) 2 g INTRAVENOUS Pre-Op Once tranexamic acid (CYKLOKAPRON) in NaCl 0.7% 1,000 mg 100 mL 1,000 mg INTRAVENOUS Pre-Op Once tranexamic acid (CYKLOKAPRON) in NaCl 0.7% 1,000 mg 100 mL 1,000 mg INTRAVENOUS ONCE [COMPLETED] celecoxib 200 mg cap(s) (CeleBREX) 200 mg ORAL ONCE [COMPLETED] oxyCODONE ER 10 mg tab(s) (OxyCONTIN) 10 mg ORAL ONCE scopolamine 1 mg over 3 days 1 Patch (TRANSDERM-SCOP) 1 Patch TRANSDERMAL q 72 HR And scopolamine - VERIFY patch OTHER q 8 H And scopolamine - REMOVE PATCH OTHER q 72 HR [COMPLETED] acetaminophen 1,000 mg tab(s) (TYLENOL) 1,000 mg ORAL ONCE Outpatient Medications as of 10/20/2023 Medication Sig cetirizine (ZYRTEC) 10 mg tablet Take 10 mg by mouth once daily as needed for cold/allergy symptoms. ALPRAZolam (XANAX) 1 mg tablet Take 1 tablet by mouth once daily as needed for anxiety for up to 30 days. aspirin, enteric coated (ASPIRIN, ENTERIC COATED) 81 mg EC tablet Take 1 tablet by mouth once daily. metFORMIN ER (GLUCOPHAGE XR) 500 mg 24 hr tablet Take 4 tablets by mouth daily with breakfast. lisinopril (ZESTRIL) 10 mg tablet Take 1 tablet by mouth once daily. alfuzosin SR (UROXATRAL) 10 mg 24 hr tablet Take 1 tablet by mouth daily at bedtime. atorvastatin (LIPITOR) 20 mg tablet Take 1 tablet by mouth once daily. Cholecalciferol, Vitamin D3, (VITAMIN D-3) 2,000 unit cap Take 1 capsule by mouth once daily. blood sugar diagnostic (BLOOD GLUCOSE TEST) test strip Test blood sugar(s) 1 times daily and as needed. Dx: Type 2 DM - Uncontrolled E11.9 Insulin: No Lancets lancets Test blood sugar(s) 1 times daily. Dx: Type 2 DM - Uncontrolled E11.65 Insulin: No I have interviewed and examined the patient. I have reviewed the medical record and/or the pre-anesthesia evaluation, pertinent labs, and test results. This contains updated information obtained within 48 hours of Surgery/Procedure. SIGNATURE: Rigoberto Bullard MD PATIENT NAME: Gala Yun DATE: October 20, 2023 TIME: 10:16 AM CSN: [id number] Normal [facility] BRIEF OP NOTon 10-20-2023 BRIEF OP NOT HNO ID: [id number] Author: PORFIRIO LOPEZ MD Service: Orthopaedic Surgery Author Type: Resident Type: Brief Op Note Filed: 10/20/2023 14:08 Note Text: BRIEF OP NOTE LOG ID: [id number] Surgery/Procedure Date: 10/20/2023 Incision/Procedure Start Time: 11:10 AM Incision Close/Procedure End Time: 1:54 PM Surgeon(s)/Procedural ist(s) and Car Lubricator(s): Surgeon(s) and Role: * Holland Mo MD - Primary * Porfirio Lopez MD - Resident - Assisting * Chen Iyer MD - Resident - Assisting Procedure(s): Procedure(s) (LRB): ARTHROPLASTY HIP (Right) Anesthesia: Spinal Estimated Blood Loss: 150 mls Fluids: Crystalloid: 800 cc Colloids: 250 cc UOP: N/A (straight catheterized at end of case for 50 cc) Specimens: ID Type Source Tests Collected by Time Destination A : right hip anterior capsule Tissue Bone and Soft Tissue SURGICAL PATHOLOGY Holland Mo MD 10/20/2023 11:39 AM Complications: None Pre-Op/Pre-Procedure Diagnosis: Right hip OA Post-Op/Post-Procedur e Diagnosis: Same Post-op Plan: - PACU AP Pelvis Xray - Activity (PT consult) 50% WB on the operative leg x6wks No high impact activity x1 year to allow for femoral neck adaptation to new component stresses Unlimited flexion allowed, follow ?kick the dog? precautions: extreme hip extension and external rotation OK to follow PT protocol for abductors - teach homegoing exercises OK for gentle abduction while standing in the plane of gravity No abduction against gravity while lying on your side (x6wks post-op) - Antibiotics x24hrs as a prophylactic measure (Ancef) - Scheduled IV Toradol 30mg Q6hrs in the hospital, transition to Celebrex upon discharge; Baclofen 10 mg TID scheduled for muscle spasms Medications: Oxycodone 1 pill every 4hrs x 7 days Tylenol 1000mg Q8hrs scheduled x30 days Celebrex 200mg QDay x8wks (30days + 1 RF) for HO ppx and swelling control -- also home with Prilosec to protect stomach lining Doxycycline 100 mg BID x3 weeks for prophylaxis Stool softener + Iron + Vit C - DVT ppx: SCD pumps while in the hospital, BLE CHELSEA Hose upon discharge for a minimum of 2 weeks, ASA EC 81mg PO BID x4 weeks - Dispo: Plan for discharge once pain controlled and all PT/OT goals met. POD#1. - Patient was given post-op instructions in pre-operative packet in the office Plan of care discussed with: Provider, RN, Patient. SIGNATURE: Porfirio Lopez MD PATIENT NAME: Gala Yun DATE: October 20, 2023 TIME: 2:06 PM PAGER/CONTACT #: [phone] [facility] NURSING PROGon 10-20-2023 NURSING PROG HNO ID: [id number] Author: KENZIE LINDSAY RN Service: ? Author Type: Registered Nurse Type: Nursing Progress Note Filed: 10/20/2023 18:35 Note Text: Other: 1804-pt transferred from pacu. +cms rle. no distress. pain /10.pt still c/o left eye irritation. redness ointment ordered. Normal [facility] OPERATIVE NOon 10-20-2023 OPERATIVE NO HNO ID: [id number] Author: HOLLAND MO MD Service: Orthopaedic Surgery Author Type: Physician Type: Operative Report Filed: 10/20/2023 13:54 Note Text: OPERATIVE/PROCEDURE REPORT LOG ID: [id number] SURGERY/PROCEDURE DATE: 10/20/2023 INCISION/PROCEDURE START TIME: 11:10 AM INCISION CLOSE/PROCEDURE END TIME: 1:58 PM SURGEON(S)/PROCEDURAL IST(S) AND LADLE WATCHER(S): Surgeon(s) and Role: * Holland Mo MD - Primary * Porfirio Lopez MD - Resident - Assisting * Chen Iyer MD - Resident - Assisting Physician Car Lubricator: Heather Diego PA-C PRE-OP/PRE-PROCEDURE DIAGNOSIS: 1) 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, Secondary 2) Diabetes, Type 2 - well controlled 3) HTN 4) Anxiety/Depression POST-OP/POST-PROCEDUR E DIAGNOSIS: 1) 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, Secondary 2) Diabetes, Type 2 - well controlled 3) HTN 4) Anxiety/Depression Procedure: 1) RIGHT [place] Hip Resurfacing Converted From Prior Hip Arthroscopies (CPT 59433 - S2118) ANESTHESIA: Spinal Estimate Blood Loss: 150cc Fluids: Crystalloids: 1500cc Colloids: 0cc PRBCs: 0 units UOP: N/A (no Avendano, straight cath'd at the end of the case) Implants: 1) SANDN BHR Monoblock Acetabular Component, Size 58 2) SANDN Femoral Head Resurfacing Component, Size 52 SURGERY/PROCEDURE DETAILS: Operative Indications: The patient is an 43 year old male with a history of multiple failed hip arthoscopies and labral repairs on the LEFT hip. His prior surgery history is as follows: 09/17/2021 -right hip scope with labral repair, acetabuloplasty, chondroplasty, synovectomy, microfracture, extensive femoroplasty, and capsular closure 12/23/2022-right hip scope revision with labral repair, chondroplasty, synovectomy, extensive lysis of adhesions, revision femoroplasty, capsular closure Ambulation and functionality has become progressively more limited over the course of time secondary to the pain taken root from the arthritic condition. Multiple conservative measures to relieve the pain have been attempted, but these have failed. After the risks, benefits, and alternatives were discussed, the he opted for a BHR with a total hip arthroplasty as a backup device. Risks, Benefits, and Alternatives The patient was counseled extensively regarding the options for treatment including operative and non-operative forms of treatment and after thorough counseling has elected to proceed with surgical treatment. The patient was counseled that with surgical treatment there is the possibility that their condition might not improve or may even worsen. Specific surgical risks discussed include bleeding, the need for possible blood product transfusion, infection, post-operative pain, damage to nerves and blood vessels, wound dehiscence and wound healing problems, incomplete relief of pain, post-operative instability (dislocation) - albeit negligible compared to SILVER, femoral neck fracture, the need for physical therapy, inability to return to desired level of function, post-operative limp, generalized dissatisfaction with the surgical procedure, complex regional pain syndrome, as well as medical complications such as DVT, PE, anesthetic complications, cardiopulmonary complications and . Pre-operatively, the patient was counseled as to the incidence of MRSA infection in our institution, and was appropriately screened with nasal swab testing and treated based on those results. The patient expressed understanding of all the issues described above and has elected to proceed with the aforementioned procedure. Operative Procedure: After the appropriate surgical site was marked, the patient was brought to the operating room. A huddle was performed with all pertinent surgical personnel, anesthesia personnel, and nursing staff. The patient then was transferred from their bed to the operating table gurney and underwent spinal anesthesia. The patient was then positioned in the lateral decubitus position, using the Innomed hip positioners. The operative leg/site was appropriately identified and pre-draped. All bony prominences were well padded. The leg was then prepped and draped in the usual sterile manner, using Chloraprep solution. Once the prep was allowed 3 minutes to dry, the leg was draped in sterile fashion, using an AuFranc drape technique. A surgical time-out was performed. Preoperative antibiotics were verified given within one hour of incision time, prior to incision. A vertical/linear incision was made in the skin directly over the midpoint of the greater trochanteric tip and completing over the gluteus balaji/TFL muscle body junctions. This was carried down to the deep fascia using a sharp blade. Pinpoint subcutaneous ?bleeders? were then identified and cauterized. The fascia was incised in a manner parallel to the skin incision. Two Hibs retractors were th (more content not included)... Normal [facility] SURGICAL PATHOLOGYon 024 CASE REPORT Normal [facility] Comment on above: Order Comment: Speci men Type: TISSUE SPECIMENOrdering Facility: [facility] Address: [address] [place] [address] Result Comment: Surg ica Pathology Report Case: [id number] Authorizing Provider: Holland Mo MD Collected: 10/20/2023 11:39 AM Ordering Location: Admitting Received: 10/20/2023 02:31 PM Pathologist: Reji Palmer MD Specimen: Bone and Soft Tissue, right hip anterior capsule Performed By: #### S ####[facility] [id number] [place] [address] [facility] LABCLIA [id number] [address] CLINICAL HISTORY Normal [facility] Comment on above: Order Comment: Speci men Type: TISSUE SPECIMENOrdering Facility: [facility] Address: [address] [place] [address] Result Comment: Pre- op diagnosis: Primary osteoarthritis of right hip [M16.11] Tear of right acetabular labrum, initial encounter [S73.191A] Performed By: #### S ####[facility] [id number] [address] [facility] LABCLIA [id number] [address] [place] FINAL DIAGNOSIS Normal [facility] Comment on above: Order Comment: Speci men Type: TISSUE SPECIMENOrdering Facility: [facility] Address: [address] [place] [address] Result Comment: Ante rior capsule, right hip, excision: - Dense fibrous tissue and synovium with papillary synovial hyperplasia. Performed By: #### S ####[facility] [id number] [place] [address] [facility] LABCLIA [id number] [address] [place] FINAL PERFORMING LAB Normal [facility] Comment on above: Order Comment: Speci men Type: TISSUE SPECIMENOrdering Facility: [facility] Address: [address] [place] [address] Result Comment: Diag nostic interpretation performed at [facility], [address] [place] [address] CLIA# [id number] Treasurer: Ilir Han M.D. Performed By: #### S ####[facility] [id number] [place] [address] [facility] LABCLIA [id number] [address] STATES OF [facility] GROSS DESCRIPTION Normal [facility] Comment on above: Order Comment: Speci men Type: TISSUE SPECIMENOrdering Facility: [facility] Address: [address] [place] [address] Result Comment: A. B one and Soft Tissue Received fresh labeled right hip anterior capsule is a segment of red-colby fibromembranous soft tissue measuring 3.9 x 3.3 x 1.4 cm. Sectioning reveals a firm fibrous cut surface with embedded suture material. No necrosis or softening is identified. Power Lineworker sections are submitted in formalin in cassettes A1-A2. Gross examination performed at [facility], [address] [facility], [place] [address] CLIA# [id number] [facility] 10/20/23 4:00 PM Performed By: #### S ####[facility] LABORATORYCLIA [id number] [facility] [address] [facility] LABCLIA [id number] [facility] [id number] [address] [facility] THERAPY NTon 10-20-2023 THERAPY NT HNO ID: [id number] Author: DANIELLE MEADE PT Service: Physical Therapy Author Type: Physical Therapist Type: Therapy (PT/OT/Speech/Resp) Filed: 10/20/2023 18:02 Note Text: PHYSICAL THERAPY MISSED VISIT SERVICE DATE: 10/20/2023 SERVICE TIME: 1802 ROOM: [place] [address] Patient not seen due to Clinical Appropriateness. Not resolved. PT will follow up when appropriate. SIGNATURE: Danielle Meade PT PATIENT NAME: Gala Yun DATE: October 20, 2023 TIME: 6:02 PM Normal [facility] XR PELVIS 1V APon 10-20-2023 XR PELVIS 1V AP * * *Final Report* * * DATE OF EXAM: Oct 20 2023 2:40PM ESX 5239 - XR PELVIS 1V AP / PROCEDURE REASON: Post-operative / post-procedure assessment, asymptomatic * * * * Physician Interpretation * * * * PELVIS X-RAY HISTORY: Post-Op- PACU. Post-operative / post-procedure assessment, asymptomatic TECHNIQUE: Single AP view COMPARISON: 10/12/2023 x-rays RESULT: New right total hip resurfacing arthroplasty. Satisfactory alignment. No findings of hardware failure or loosening. Soft tissue gas around the hip related to surgery. IMPRESSION: New right total hip resurfacing arthroplasty without complication Knowledge Manager: CHARY Transcribe Date/Time: Oct 20 2023 3:02P Dictated by : NIHARIKA NELSON MD This examination was interpreted and the report reviewed and electronically signed by: NIHARIKA NELSON MD on Oct 20 2023 3:02PM EST [id number] N Normal [facility] CNPNon 10-13-2023 CNPN Telephone (ORTHMN) GALA YUN ([id number]) 1980 M Date Time Provider Department 10/13/23 SANGEETHA JOSÉ During your visit today, we recorded the following information about you: Sangeetha José LSW 10/13/2023 9:38 AM Signed ORTHOPAEDIC COORDINATION OF CARE Pre-Op Assessment Discharge Disposition (Planned): Home with Self Care Discharge Transportation: Car PRIMARY CARE PHYSICIAN: Vesta Stallworth MD OR Surgery Date: 10/20/2023 TCI Appointment: 10/20/2023 Joint: Jointtype: Hip Side: right (resurfacing) Health Insurance: Medical Dayhoit Primary Contact: Extended Emergency Contact Information Primary Emergency Contact: Fifi Yun Mobile Relation: Spouse Have you had joint replacement surgery before?: No Social: Pre-Hospital Baseline Mental Status: Alert AND Oriented Informant: Self Living Arrangement: Home Who able to assist you at home once you discharge? Spouse Are they available for at least 2 weeks? Yes Stairs: 2 story home 1 stairs to enter home Unknown # of stairs inside home Bedroom Location: First Bathroom Location: First Do you have problems that affect your ability to perform normal activities of daily living such as bathing, dressing, or toileting yourself? No = 0 What is your current functional status?: Perform ADLs independently Are you able to afford your medications/Food? Yes Social Determinants of Health Tobacco Use: Medium Risk (10/12/2023) Patient History Smoking Tobacco Use: Former Smokeless Tobacco Use: Never Passive Exposure: Not on file Alcohol Use: Not At Risk (03/11/2022) AUDIT-C Frequency of Alcohol Consumption: 2-4 times a month Average Number of Drinks: 1 or 2 Frequency of Binge Drinking: Less than monthly Financial Resource Strain: Medium Risk (03/11/2022) Overall Financial Resource Strain (CARDIA) Difficulty of Paying Living Expenses: Somewhat hard Food Insecurity: No Food Insecurity (03/11/2022) Hunger Vital Sign Worried About Running Out of Food in the Last Year: Never true Ran Out of Food in the Last Year: Never true Transportation Needs: No Transportation Needs (03/11/2022) PRAPARE - Transportation Lack of Transportation (Medical): No Lack of Transportation (Non-Medical): No Physical Activity: Sufficiently Active (03/11/2022) Exercise Vital Sign Days of Exercise per Week: 6 days Minutes of Exercise per Session: 40 min Stress: Stress Concern Present (03/11/2022) [place] [employer] - Occupational Stress Questionnaire Feeling of Stress : Rather much Social Connections: Socially Isolated (03/11/2022) Social Connection and Isolation Panel [NHANES] Frequency of Communication with Friends and Family: Twice a week Frequency of Social Gatherings with Friends and Family: Never Attends Rastafari Services: Never Active Member of Clubs or Organizations: No Attends Club or Organization Meetings: Never Marital Status: Intimate Partner Violence: Not At Risk (03/11/2022) Humiliation, Afraid, Rape, and Kick questionnaire Fear of Current or Ex-Partner: No Emotionally Abused: No Physically Abused: No Sexually Abused: No Depression: Not at risk (03/11/2022) PHQ-2 PHQ-2 Score: 2 Housing Stability: Low Risk (03/11/2022) Housing Stability Vital Sign Unable to Pay for Housing in the Last Year: No Number of Places Lived in the Last Year: 1 Unstable Housing in the Last Year: No Utilities: Not At Risk (10/13/2023) [facility] Utilities Threatened with loss of utilities: No Area Deprivation Index: Low Risk (11/12/2022) Area Deprivation Index National Score (1-100), lower number is lower risk: 41 State Score (1-10), lower number is lower risk: 2 Data from: https://www.[facility] eris.medicine.[facility]/. Last address used for calculation: [address] Equipment: Do you currently use any equipment at home for your medical condition or to help you get around? None Patient has crutches and a shower chair at home for after surgery Active Services/Needs: None Transportation: Do you have reliable transportation to and from surgery/appointments? : Yes Who will provide discharge transportation: Spouse Contact information for patient's ride: Will your ride be available for 1200 discharge time? Yes Office Visit Follow Up Did you receive the antiseptic wipes from your surgeon?s office? Yes Did you receive a prescription for an assistive device (walker or crutches) from your surgeon?s office and fill it or do you already have one at home? Yes Did you attend a joint education class/Watched video? Yes Did you read the education book provided to you? Yes Have you let your PCP know you are having a joint replacement surgery? No, If no, plan for correction is: Patient advised to notify PCP office of upcoming surgery If you are c (more content not included)... Normal [facility] Basic metabolic 2000 panelOr dered By: Fifi Harrison on 10-12-2023 Anion gap [Moles/Vol] 8 mmol/L 8 - 15 mmol/L [facility] Calcium [Mass/Vol] 9.5 mg/dL 8.5 - 10. 2 mg/dL [facility] Chloride [Moles/Vol] 99 mmol/L 98 - 10 7 mmol/L [facility] CO2 [Moles/Vol] 27 mmol/L 22 - 30 mmol/L [facility] Creatinine [Mass/Vol] 0.81 mg/dL 0.73 - 1.22 mg/dL [facility] GFR/1.73 sq M.predicted among non-blacks MDRD (S/P/Bld) [Vol rate/Area] 111 mL/min/{1.73_m2} - PINF [facility] Comment on above: Estimated Glomerular Filtration Rate (eGFR) is calculated using the 2020 CKD-EPI creatinine equation. This equation utilizes serum creatinine, sex, and age as parameters. The creatinine assay has traceable calibration to isotope dilution-mass spectrometry. Refer to KDIGO guidelines for clinical interpretation. In patients with unstable renal function, e.g. those with acute kidney injury, the eGFR may not accurately reflect actual GFR. Glucose [Mass/Vol] 157 mg/dL High 74 - 99 mg/dL [facility] Comment on above: The [place] Diabete s Association (ADA) provides guidance for cutoff values for fasting glucose and random glucose. The ADA defines fasting as no caloric intake for at least 8 hours. Fasting plasma glucose results between 100 to 125 mg/dL indicate increased risk for diabetes (prediabetes). Fasting plasma glucose results greater than or equal to 126 mg/dL meet the criteria for diagnosis of diabetes. In the absence of unequivocal hyperglycemia, results should be confirmed by repeat testing. In a patient with classic symptoms of hyperglycemia or hyperglycemic crisis, random plasma glucose results greater than or equal to 200 mg/dL meet the criteria for diagnosis of diabetes. Reference: Standards of Medical Care in Diabetes 2016, [place] Diabetes Association. Diabetes Care. 2016.39(Suppl 1). Interpretation and review of laboratory results Abnormal [facility] Potassium [Moles/Vol] 4.9 mmol/L 3.7 - 5.1 mmol/L [facility] Sodium [Moles/Vol] 134 mmol/L Low 136 - 144 mmol/L [facility] Urea nitrogen [Mass/Vol] 16 mg/dL 9 - 24 mg/dL [facility] Basic metabolic 2000 panelon 10-12-2023 Anion gap [Moles/Vol] 8 mmol/L Normal 8-15 [facility] Comment on above: Order Comment: Speci men Type: BLOOD SPECIMENOrdering Facility: [facility] Address: [address] [place] [address] Performed By: #### 2 4321-2 ####[facility] [id number] [place] [address] [place] Calcium [Mass/Vol] 9.5 mg/dL Normal 8.5-10.2 [facility] Comment on above: Order Comment: Speci men Type: BLOOD SPECIMENOrdering Facility: [facility] Address: [address] [place] [address] Performed By: #### 2 4321-2 ####[facility] [id number] [place] [address] [place] Chloride [Moles/Vol] 99 mmol/L Normal 98-107 [facility] Comment on above: Order Comment: Speci men Type: BLOOD SPECIMENOrdering Facility: [facility] Address: [address] [place] [address] Performed By: #### 2 4321-2 ####[facility] [id number] [place] [address] [place] CO2 [Moles/Vol] 27 mmol/L Normal 22-30 [facility] Comment on above: Order Comment: Speci men Type: BLOOD SPECIMENOrdering Facility: [facility] Address: [address] [place] [address] Performed By: #### 2 4321-2 ####[facility] [id number] [place] [address] [place] Creatinine [Mass/Vol] 0.81 mg/dL Normal 0.73-1.22 [facility] Comment on above: Order Comment: Speci men Type: BLOOD SPECIMENOrdering Facility: [facility] Address: [address] [place] [address] Performed By: #### 2 4321-2 ####[facility] [id number] [place] [address] [place] Creatinine and Glomerular filtration rate.predicted panel (S/P/Bld) 111 mL/min/1.73m??? Normal >=60 [facility] Comment on above: Order Comment: Speci men Type: BLOOD SPECIMENOrdering Facility: [facility] Address: [address] [place] [address] Result Comment: Shahrzad mated Glomerular Filtration Rate (eGFR) is calculated using the 2020 CKD-EPI creatinine equation. This equation utilizes serum creatinine, sex, and age as parameters. The creatinine assay has traceable calibration to isotope dilution-mass spectrometry. Refer to KDIGO guidelines for clinical interpretation. In patients with unstable renal function, e.g. those with acute kidney injury, the eGFR may not accurately reflect actual GFR. Performed By: #### 2 4321-2 ####[facility]NC[facility] [id number] [place] [address] [place] Glucose [Mass/Vol] 157 mg/dL High 74-99 [facility] Comment on above: Order Comment: Speci men Type: BLOOD SPECIMENOrdering Facility: [facility] Address: [address] [place], [place] [address] Result Comment: The [place] Diabetes Association (ADA) provides guidance for cutoff values for fasting glucose and random glucose. The ADA defines fasting as no caloric intake for at least 8 hours. Fasting plasma glucose results between 100 to 125 mg/dL indicate increased risk for diabetes (prediabetes). Fasting plasma glucose results greater than or equal to 126 mg/dL meet the criteria for diagnosis of diabetes. In the absence of unequivocal hyperglycemia, results should be confirmed by repeat testing. In a patient with classic symptoms of hyperglycemia or hyperglycemic crisis, random plasma glucose results greater than or equal to 200 mg/dL meet the criteria for diagnosis of diabetes. Reference: Standards of Medical Care in Diabetes 2016, [place] Diabetes Association. Diabetes Care. 2016.39(Suppl 1). Performed By: #### 2 4321-2 ####[facility]ENTERA [id number] [place] [address] [place] Potassium [Moles/Vol] 4.9 mmol/L Normal 3.7-5.1 [facility] Comment on above: Order Comment: Speci men Type: BLOOD SPECIMENOrdering Facility: [facility] Address: [address] [place] [address] Performed By: #### 2 4321-2 ####[facility] H[facility]PITALRoxie [id number] [place] [address] [place] Sodium [Moles/Vol] 134 mmol/L Low 136-144 [facility] Comment on above: Order Comment: Speci men Type: BLOOD SPECIMENOrdering Facility: [facility] Address: [address] [place], [place] [address] Performed By: #### 2 4321-2 ####[facility] [id number] [place] [address] [place] Urea nitrogen [Mass/Vol] 16 mg/dL Normal 9-24 [facility] Comment on above: Order Comment: Speci men Type: BLOOD SPECIMENOrdering Facility: [facility] Address: [facility] [place] [address] Performed By: #### 2 4321-2 ####[facility] RENITA [facility][1]YVONNE [id number] [place] [id number] [place] CBC W Auto Differential pane l (Bld)on 10-12-2023 Basophils (Bld) [#/Vol] 0.05 10*3/uL [facility] Basophils/100 WBC (Bld) 0.9 % [facility] Differential cell count method Nom (Bld) Auto [facility] Eosinophils (Bld) [#/Vol] 0.08 10*3/uL [facility] Eosinophils/100 WBC (Bld) 1.5 % [facility] Erythrocyte distribution width (RBC) [Ratio] 12.7 % 11.5 - 15.0 % [facility] Hematocrit (Bld) [Volume fraction] 46.8 % 39.0 - 51.0 % [facility] Hemoglobin (Bld) [Mass/Vol] 16.6 g/dL 13.0 - 17.0 g/dL [facility] Immature granulocytes (Bld) [#/Vol] [facility] Immature granulocytes/100 WBC (Bld) 0.2 % [facility] Interpretation and review of laboratory results Abnormal [facility] Lymphocytes (Bld) [#/Vol] 1.91 10*3/uL [facility] Lymphocytes/100 WBC (Bld) 35.1 % [facility] MCH (RBC) [Entitic mass] 29.9 pg 26.0 - 34.0 pg [facility] MCHC (RBC) [Mass/Vol] 35.5 g/dL 30.5 - 36.0 g/dL [facility] MCV (RBC) [Entitic vol] 84.3 fL 80.0 - 100.0 fL [facility] Monocytes (Bld) [#/Vol] 0.58 10*3/uL [facility] Monocytes/100 WBC (Bld) 10.7 % [facility] Neutrophils (Bld) [#/Vol] 2.81 10*3/uL [facility] Neutrophils/100 WBC (Bld) 51.6 % [facility] Nucleated RBC (Bld) [#/Vol] NINF [facility] Nucleated RBC/100 WBC (Bld) [Ratio] 0.0 % /100 WBC [facility] Platelet mean volume (Bld) [Entitic vol] 8.8 fL Low 9.0 - 12.7 fL [facility] Platelets (Bld) [#/Vol] 145 10*3/uL Low [facility] RBC (Bld) [#/Vol] 5.55 10*6/uL 4.20 - 6.0 0 m/uL [facility] WBC (Bld) [#/Vol] 5.44 10*3/uL [facility] Basophils (Bld) [#/Vol] 0.05 10*3/uL Normal <0.11 [facility] Comment on above: Order Comment: Speci men Type: BLOOD SPECIMENOrdering Facility: [facility] Address: [address] [place] [address] Performed By: #### 5 7021-8 ####[facility] [id number] [place] [address] [place] Basophils/100 WBC (Bld) 0.9 % Normal [facility] Comment on above: Order Comment: Speci men Type: BLOOD SPECIMENOrdering Facility: [facility] Address: [address] [place] [address] Performed By: #### 5 7021-8 ####[facility] [id number] [place] [address] [place] Differential cell count method Nom (Bld) Auto Normal [facility] Comment on above: Order Comment: Speci men Type: BLOOD SPECIMENOrdering Facility: [facility] Address: [address] [place] [address] Performed By: #### 5 7021-8 ####[facility] [id number] [place] [address] [place] Eosinophils (Bld) [#/Vol] 0.08 10*3/uL Normal <0.46 [facility] Comment on above: Order Comment: Speci men Type: BLOOD SPECIMENOrdering Facility: [facility] Address: [address] [place] [address] Performed By: #### 5 7021-8 ####[facility] DORALNCMARISSA [id number] [place] [address] [place] Eosinophils/100 WBC (Bld) 1.5 % Normal [facility] Comment on above: Order Comment: Speci men Type: BLOOD SPECIMENOrdering Facility: [facility] Address: [address] [place] [address] Performed By: #### 5 7021-8 ####[facility] [id number] [place] [address] [place] Erythrocyte distribution width (RBC) [Ratio] 12.7 % Normal 11.5-15.0 [facility] Comment on above: Order Comment: Speci men Type: BLOOD SPECIMENOrdering Facility: [facility] Address: [address] [place] [address] Performed By: #### 5 7021-8 ####[facility] [id number] [place] [address] [place] Hematocrit (Bld) [Volume fraction] 46.8 % Normal 39.0-51.0 [facility] Comment on above: Order Comment: Speci men Type: BLOOD SPECIMENOrdering Facility: [facility] Address: [address] [place] [address] Performed By: #### 5 7021-8 ####[facility] DORALNCLI [id number] [place] [address] [place] Hemoglobin (Bld) [Mass/Vol] 16.6 g/dL Normal 13.0-17.0 [facility] Comment on above: Order Comment: Speci men Type: BLOOD SPECIMENOrdering Facility: [facility] Address: [address] [place] [address] Performed By: #### 5 7021-8 ####[facility] MILLRICKWNCLIA [id number] [place] [address] [place] Immature granulocytes (Bld) [#/Vol] 10*3/uL Normal <0.10 [facility] Comment on above: Order Comment: Speci men Type: BLOOD SPECIMENOrdering Facility: [facility] Address: [address] [place] [address] Performed By: #### 5 7021-8 ####[facility] MILLWNCLIA [id number] [place] [address] [place] Immature granulocytes/100 WBC (Bld) 0.2 % Normal [facility] Comment on above: Order Comment: Speci men Type: BLOOD SPECIMENOrdering Facility: [facility] Address: [address] [place] [address] Performed By: #### 5 7021-8 ####[facility] H[facility]ITALLIA [id number] [place] [address] [place] Lymphocytes (Bld) [#/Vol] 1.91 10*3/uL Normal 1.00-4.00 [facility] Comment on above: Order Comment: Speci men Type: BLOOD SPECIMENOrdering Facility: [facility] Address: [address] [place] [address] Performed By: #### 5 7021-8 ####[facility] MILLTOWNCLIA [id number] [place] [address] [place] Lymphocytes/100 WBC (Bld) 35.1 % Normal [facility] Comment on above: Order Comment: Speci men Type: BLOOD SPECIMENOrdering Facility: [facility] Address: [address] [place] [address] Performed By: #### 5 7021-8 ####[facility] MILLTOWNCLIA [id number] [place] [address] [place] MCH (RBC) [Entitic mass] 29.9 pg Normal 26.0-34.0 [facility] Comment on above: Order Comment: Speci men Type: BLOOD SPECIMENOrdering Facility: [facility] Address: [address] [place] [address] Performed By: #### 5 7021-8 ####[facility] DORALROBBIE [id number] [place] [address] [place] MCHC (RBC) [Mass/Vol] 35.5 g/dL Normal 30.5-36.0 [facility] Comment on above: Order Comment: Speci men Type: BLOOD SPECIMENOrdering Facility: [facility] Address: [address] [place] [address] Performed By: #### 5 7021-8 ####[facility] [id number] [place] [address] [place] MCV (RBC) [Entitic vol] 84.3 fL Normal 80.0-100.0 [facility] Comment on above: Order Comment: Speci men Type: BLOOD SPECIMENOrdering Facility: [facility] Address: [address] [place] [address] Performed By: #### 5 7021-8 ####[facility] DORALNCYVONNE [id number] [place] [address] [place] Monocytes (Bld) [#/Vol] 0.58 10*3/uL Normal <0.87 [facility] Comment on above: Order Comment: Speci men Type: BLOOD SPECIMENOrdering Facility: [facility] Address: [address] [place] [address] Performed By: #### 5 7021-8 ####[facility] DORALNCLIA [id number] [place] [address] [place] Monocytes/100 WBC (Bld) 10.7 % Normal [facility] Comment on above: Order Comment: Speci men Type: BLOOD SPECIMENOrdering Facility: [facility] Address: [address] [place] [address] Performed By: #### 5 7021-8 ####[facility] BRAXTONBROOKLYNRACHELLIA [id number] [place] [address] [place] Neutrophils (Bld) [#/Vol] 2.81 10*3/uL Normal 1.45-7.50 [facility] Comment on above: Order Comment: Speci men Type: BLOOD SPECIMENOrdering Facility: [facility] Address: [address] [place] [address] Performed By: #### 5 7021-8 ####[facility] [id number] [place] [address] [place] Neutrophils/100 WBC (Bld) 51.6 % Normal [facility] Comment on above: Order Comment: Speci men Type: BLOOD SPECIMENOrdering Facility: [facility] Address: [address] [place] [address] Performed By: #### 5 7021-8 ####[facility] [id number] [place] [address] [place] Nucleated RBC (Bld) [#/Vol] 10*3/uL Normal <0.01 [facility] Comment on above: Order Comment: Speci men Type: BLOOD SPECIMENOrdering Facility: [facility] Address: [address] [place] [address] Performed By: #### 5 7021-8 ####[facility] [id number] [place] [address] [place] Nucleated RBC/100 WBC (Bld) [Ratio] 0.0 /100 WBC Normal [facility] Comment on above: Order Comment: Speci men Type: BLOOD SPECIMENOrdering Facility: [facility] Address: [address] [place] [address] Performed By: #### 5 7021-8 ####[facility] MILLRICKWNCLIA [id number] [place] [address] [place] Platelet mean volume (Bld) [Entitic vol] 8.8 fL Low 9.0-12.7 [facility] Comment on above: Order Comment: Speci men Type: BLOOD SPECIMENOrdering Facility: [facility] Address: [address] [place] [address] Performed By: #### 5 7021-8 ####[facility] BRAXTONWRACHELLIA [id number] [place] [address] [place] Platelets (Bld) [#/Vol] 145 10*3/uL Low 150-400 [facility] Comment on above: Order Comment: Speci men Type: BLOOD SPECIMENOrdering Facility: [facility] Address: [address] [place] [address] Performed By: #### 5 7021-8 ####[facility] BRAXTONZHANNALIA [id number] [place] [address] [place] RBC (Bld) [#/Vol] 5.55 10*6/uL Normal 4.20-6.00 [facility] Comment on above: Order Comment: Speci men Type: BLOOD SPECIMENOrdering Facility: [facility] Address: [address] [place], [place] [id number] Performed By: #### 5 7021-8 ####[facility] SHARONWNCLIA [id number] [place] [address] [place] WBC (Bld) [#/Vol] 5.44 10*3/uL Normal 3.70-11.00 [facility] Comment on above: Order Comment: Speci men Type: BLOOD SPECIMENOrdering Facility: [facility] Address: [address] [place] [address] Performed By: #### 5 7021-8 ####[facility] [id number] [place] [address] [place] CONFIRM BLOOD TYPEon 024 ABO A Normal [facility] Comment on above: Order Comment: Speci men Type: BLOOD SPECIMENOrdering Facility: [facility] Address: [address] [place] [address] Performed By: #### C ONABO ####[facility] BLOOD BANKCLIA [id number] [place] [address] [place] Rh Nom (Bld) Negative Normal [facility] Comment on above: Order Comment: Speci men Type: BLOOD SPECIMENOrdering Facility: [facility] Address: [address] [place] [address] Performed By: #### C ONABO ####CC MAIN BLOOD BANKCLIA [id number] [place] [address] [place] HISTORY PHYSICALon HISTORY PHYSICAL HNO ID: [id number] Author: ROSA M DILLARD APRN.[employer] Service: ? Author Type: Nurse Practitioner Type: H&P Filed: 10/12/2023 09:59 Note Text: [facility] HISTORY AND PHYSICAL EXAMINATION SERVICE DATE: 10/12/2023 SERVICE TIME: 9:59 AM PRIMARY CARE PHYSICIAN: Vesta Stallworth MD Assessment Patient has the following medical conditions which may affect emilee-operative course: Coronary artery disease involving [place] coronary artery of [place] heart without angina pectoris Assessment: mild, non-obstructing per CTA recently, following cardilogy, last OV below Dr. Jeff, 08/25/2023 CHIEF COMPLAINT: Patient presents with: CARD Follow Up Annual IMPRESSION / PLAN: Mild coronary artery disease of the proximal LAD and proximal left circumflex distribution (detected by CTA coronaries) Possible PFO (detected by cardiac CT) Supraventricular tachycardia (SVT) Discussed CTA coronaries findings with the patient. There is only mild disease at the proximal LAD and proximal circumflex distribution. He is already taking aspirin 81 mg daily and atorvastatin 20 mg daily. LDL is below 70. Reassured about the PFO which is prevalent and approximately 25-30% in population and no further workup is needed for that at this time. Short runs of SVT on event monitor with no evidence of atrial fibrillation. He does not have symptoms related to the SVT. No treatment needed at this time for that. Counseled for lifestyle and diet modifications. Suggested moderate-intensity aerobic activity for a minimum of 30 minutes, five times per week or vigorous-intensity aerobic activity for a minimum of 20 minutes, three times per week. Counseled to follow DASH and Mediterranean diet. He will continue to follow-up with his primary care physician. Follow Up Instructions Return if symptoms worsen or fail to improve. Hypertension, essential Assessment: controlled on rx Last 14 BP Last 14 Encounter BP Readings: Date: BP: 10/12/2023 140/92 08/25/2023 120/72 06/21/2023 123/78 06/14/2023 136/80 05/18/2023 120/60 01/26/2023 128/88 01/10/2023 126/82 01/10/2023 122/81 12/31/2022 134/82 11/12/2022 104/70 10/29/2022 138/82 03/12/2022 116/72 12/29/2021 116/88 09/22/2021 112/78 Hypertriglyceridemia Assessment: c/w statin Type 2 diabetes mellitus without complication, without long-term current use of insulin (HCC) Assessment: controlled on oral agent Hemoglobin A1C Date Value 06/16/2023 5.8 % 08/14/2021 7.0 07/02/2020 6.1 % Recurrent major depressive disorder, in partial remission (HCC) Assessment: hx, no current tx, stable per pt Social phobia Assessment: rx as needed Postoperative retention of urine Assessment: hx the last two surgeries Benign prostatic hyperplasia with lower urinary tract symptoms Assessment: controlled on rx Elevated bilirubin Assessment: PCP monitoring, see comment below from PCP's progress notes ?chronic versus intermittent mild elevation sicne childhood--benign condition History of kidney stones Assessment: hx lithotripsy A-fib (HCC) Assessment: remote hx post-op went into afib on induction for this 2nd hip scope Torres Activity Status Index: METS: Climb a flight of stairs or walk up a hill (5.50 METs) DASI Score: 5.5 Patient denies any chest pain or undue shortness of breath with the above physical activity. Clinical Frailty Scale: 3. Well, with treated comorbid disease STOP-Bang Score: Has or is being treated for high blood pressure Male patient Denies snoring loudly Denies feeling tired, fatigued, or sleepy during the daytime Has not been observed to stop breathing or choking/gasping during sleep BMI less than or equal to 35 kg/m2 Patient 50 years old or younger Does not have a large neck STOP-Bang Score: 2 [id number] Score: Age: <65 Sex: male CHF history: No Hypertension history: Yes Stroke/TIA/thromboemb olism history: No Vascular disease history: No Diabetes history: Yes [id number] Score: 2 ARISCAT Score: Age: <=50 Preoperative SpO2: >=96% Respiratory infection in the last month: No Preoperative anemia: Yes Surgical incision: peripheral Duration of surgery: >3 hrs Emergency procedure: No ARISCAT Score: 34 ANESTHESIA FINDINGS: Intubation History: No history of difficult intubation Significant Anesthesia Considerations: post-op urinary retention potential postop nausea/vomiting Airway History: No history of difficult airway I - PHYSICAL EVALUATION AIRWAY Patient intubated: No. Tracheostomy tube not present Mallampati: III. TM distance: >3 FB. Neck ROM: full ROM without neurological symptoms. Mouth opening: adequate. Short neck: no. Thick neck: no Mcdaniel present: no Lip Bite Test: I Microretrognathia/Rick ronagthia/Recessed Chin: No DENTAL Dental findings: teeth intact. Additional comments: +crowns/back. II (more content not included)... Normal [facility] TYPE AND SCREEN,30 DAYon ABO A Normal [facility] Comment on above: Order Comment: Speci men Type: BLOOD SPECIMENOrdering Facility: [facility] Address: [address] [place] [address] Performed By: #### T SCR30 ####CC MAIN BLOOD BANKCLIA [id number] [place] [address] [place] HISTORICAL AB SCR STATUS Negative Normal [facility] Comment on above: Order Comment: Speci men Type: BLOOD SPECIMENOrdering Facility: [facility] Address: [address] [place] [address] Performed By: #### T SCR30 ####CC MAIN BLOOD BANKCLIA [id number] [place] [id number] [place] Rh Nom (Bld) Negative Normal [facility] Comment on above: Order Comment: Speci men Type: BLOOD SPECIMENOrdering Facility: [facility] Address: [address] [place] [place] [address] Performed By: #### T SCR30 ####CC MAIN BLOOD BANKCLIA [id number] [place] [id number] [place] XR HIP 2V AP/LAT RTon 2023 XR HIP 2V AP/LAT RT * * *Final Report* * * DATE OF EXAM: Oct 12 2023 4:28PM [id number] - XR HIP 2V AP/LAT RT / PROCEDURE REASON: Primary osteoarthritis of right hip * * * * Physician Interpretation * * * * EXAMINATION: XR HIP 3V PELV+ AP/LAT RT, XR HIP 2V AP/LAT RT CLINICAL HISTORY: PT HAVING RIGHT HIP BRANDON SURGERY PRE OP FILMS (accession [id number]), PT STATES RIGHT HIP BRANDON RESUFACING SURGERY PRE OP FILMS (accession [id number]) Primary osteoarthritis of right hip Technique: XR HIP 3V PELV+ AP/LAT RT, XR HIP 2V AP/LAT RT -- RIGHT (accession [id number]), NOT APPLICABLE (accession [id number]) with 3 (accession [id number]), 2 (accession [id number]) views on 3 (accession [id number]), 4 (accession [id number]) images Comparison: 09/11/2020 RESULT: No fracture or dislocation. Mild right hip degenerative changes with inferomedial joint space narrowing and marginal osteophytes. Heterotopic bone along the lateral joint margin. No erosions or chondrocalcinosis. SI joints and pubic symphysis are intact. Degenerative changes in the lower lumbar spine. The sacral slope measures 43 degrees. Pelvic tilt measures 21 degrees. IMPRESSION: Preoperative imaging. Mild right hip osteoarthritis. Knowledge Manager: PSCShahla Transcribe Date/Time: Oct 14 2023 12:56P Dictated by : ANANDA GONZALES MD This examination was interpreted and the report reviewed and electronically signed by: ANANDA GONZALES MD on Oct 14 2023 1:07PM EST [id number] Normal [facility] XR HIP 3V PELV+ AP/LAT RTon 10-12-2023 XR HIP 3V PELV+ AP/LAT RT * * *Final Report* * * DATE OF EXAM: Oct 12 2023 11:21AM [id number] - XR HIP 3V PELV+ AP/LAT RT / PROCEDURE REASON: Primary osteoarthritis of right hip * * * * Physician Interpretation * * * * EXAMINATION: XR HIP 3V PELV+ AP/LAT RT, XR HIP 2V AP/LAT RT CLINICAL HISTORY: PT HAVING RIGHT HIP BRANDON SURGERY PRE OP FILMS (accession [id number]), PT STATES RIGHT HIP BRANDON RESUFACING SURGERY PRE OP FILMS (accession [id number]) Primary osteoarthritis of right hip Technique: XR HIP 3V PELV+ AP/LAT RT, XR HIP 2V AP/LAT RT -- RIGHT (accession [id number]), NOT APPLICABLE (accession [id number]) with 3 (accession [id number]), 2 (accession [id number]) views on 3 (accession [id number]), 4 (accession [id number]) images Comparison: 09/11/2020 RESULT: No fracture or dislocation. Mild right hip degenerative changes with inferomedial joint space narrowing and marginal osteophytes. Heterotopic bone along the lateral joint margin. No erosions or chondrocalcinosis. SI joints and pubic symphysis are intact. Degenerative changes in the lower lumbar spine. The sacral slope measures 43 degrees. Pelvic tilt measures 21 degrees. IMPRESSION: Preoperative imaging. Mild right hip osteoarthritis. Knowledge Manager: PSCB Transcribe Date/Time: Oct 14 2023 12:56P Dictated by : ANANDA GONZALES MD This examination was interpreted and the report reviewed and electronically signed by: ANANDA GONZALES MD on Oct 14 2023 1:07PM EST [id number] Normal [facility] CNOVon 08-25-2023 CNOV Office Visit (CARDST ) GLAA YUN ([id number]) 1980 M Date Time Provider Department 08/25/23 9:30 AM JASMINA RINCON During your visit today, we recorded the following information about you: Pulse Blood pressure Weight 73/minute 120/72 106.8 kg Jasmina Rincon MD 08/25/2023 9:51 AM [facility] [place] Huyen Restrepo Department of Cardiovascular Medicine SECTION OF [facility] OUTPATIENT VISIT DATE August 25, 2023 OUTPATIENT VISIT TYPE ESTABLISHED PATIENT Name: Gala Yun : 1980 Date: August 25, 2023 PRIMARY CARE PHYSICIAN: Vesta Stallwroth [address] [place] [phone] REFERRING PHYSICIAN: Tiara Ball [address] [place] [phone] CHIEF COMPLAINT: Patient presents with: CARD Follow Up Annual IMPRESSION / PLAN: Mild coronary artery disease of the proximal LAD and proximal left circumflex distribution (detected by CTA coronaries) Possible PFO (detected by cardiac CT) Supraventricular tachycardia (SVT) Discussed CTA coronaries findings with the patient. There is only mild disease at the proximal LAD and proximal circumflex distribution. He is already taking aspirin 81 mg daily and atorvastatin 20 mg daily. LDL is below 70. Reassured about the PFO which is prevalent and approximately 25-30% in population and no further workup is needed for that at this time. Short runs of SVT on event monitor with no evidence of atrial fibrillation. He does not have symptoms related to the SVT. No treatment needed at this time for that. Counseled for lifestyle and diet modifications. Suggested moderate-intensity aerobic activity for a minimum of 30 minutes, five times per week or vigorous-intensity aerobic activity for a minimum of 20 minutes, three times per week. Counseled to follow DASH and Mediterranean diet. He will continue to follow-up with his primary care physician. Follow Up Instructions Return if symptoms worsen or fail to improve. ORDERS FOR TODAY'S VISIT: No orders found for this visit on 08/25/23. HISTORY OF PRESENT ILLNESS: Gala Yun is an 42 year old male with history of mild coronary artery disease of the proximal LAD and proximal left circumflex distribution (detected by CTA coronaries), possible PFO (detected by cardiac CT), SVT, type 2 diabetes mellitus with A1c of 5.8, hypertension, hyperlipidemia presented today for a follow up visit. First evaluation was on 05/29/2022. He was seen after having a prostatic procedure. He had prostatic procedure in an outside hospital and reportedly atrial fibrillation was noted on telemetry after surgery. They could not capture at with ECG as per patient because it resolved. We ordered event monitor which showed episodes of SVT, but no evidence of atrial fibrillation. Echo was unremarkable. Treadmill stress test showed ST depression. CTA coronaries showed mild coronary artery disease in the proximal LAD and proximal left circumflex distribution and possible PFO. He has been doing well since last visit. He denies chest pain, shortness of breath, palpitations, dizziness, syncope, or swelling lower extremities. No previous history of coronary artery disease, cardiomyopathy, arrhythmias, or valve disease. Patient is non-smoker, drinks socially, and denies any recreational drugs use. 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 Mittal) Vitamin D deficiency PAST SURGICAL HISTORY Procedure Laterality Date EXTENSIVE HIP SURGERY Right 09/17/2021 PAST SURGICAL HISTORY OF 04/04/2009 kidney stone, blasted, stent placed PAST SURGICAL HISTORY OF 04/19/2013 Left elbow lateral epicondylar release, Dr. Damon PAST SURGICAL HISTORY OF Right Athroscopy SOCIAL HISTORY Social History Tobacco Use Smoking status: Former Smokeless tobacco: Never Vaping Use Vaping Use: Never used Substance Use Topics Alcohol use: Yes Alcohol/week: 2.0 - 3.0 standard drinks of alcohol Types: 2 - 3 Glasses of Wine (5oz) per week Comment: 3-4 times a week Drug use: Yes Frequency: 3.0 times per week Types: Marijuana Comment: Several times per week FAMILY HISTORY Problem Relation Age of Onset Coronary Artery Disease Father CABG at age 58 None Mother None Sister None Brother Ischemic Heart Disease Paternal Grandmother Stroke Paternal Grandmother (more content not included)... Normal [facility] CTA Heart and Coronary arter ies W contrast [place] 06-21-2023 [facility] ALBUMIN/CREAT RATIO RND URon 06-16-2023 Albumin DL <= 20 mg/L (U) [Mass/Vol] 19.7 mg/L [facility] Albumin/Creatinine (U) [Mass ratio] 13 mg/g <30 mg/g [facility] Creatinine (U) [Mass/Vol] 149.5 mg/dL 20.0 - 300.0 mg/dL [facility] Comprehensive metabolic 2000 panelon 06-16-2023 Albumin [Mass/Vol] 4.7 g/dL 3.9 - 4.9 g/dL [facility] ALP [Catalytic activity/Vol] 61 U/L 38 - 113 U/L [facility] ALT [Catalytic activity/Vol] 23 U/L 10 - 54 U/L [facility] Anion gap [Moles/Vol] 10 mmol/L 9 - 18 mmol/L [facility] AST [Catalytic activity/Vol] 25 U/L 14 - 40 U/L [facility] Bilirubin [Mass/Vol] 2.9 mg/dL High 0.2 - 1 .3 mg/dL [facility] Calcium [Mass/Vol] 9.2 mg/dL 8.5 - 10. 2 mg/dL [facility] Chloride [Moles/Vol] 100 mmol/L 97 - 10 5 mmol/L [facility] CO2 [Moles/Vol] 27 mmol/L 22 - 30 mmol/L [facility] Creatinine [Mass/Vol] 0.82 mg/dL 0.73 - 1.22 mg/dL [facility] Estimated Glomerular Filtration Rate 111 mL/min/1.73m >=60 mL/min/1.73m [facility] Glucose [Mass/Vol] 124 mg/dL High 74 - 99 mg/dL [facility] Potassium [Moles/Vol] 4.1 mmol/L 3.7 - 5.1 mmol/L [facility] Protein [Mass/Vol] 6.7 g/dL 6.3 - 8.0 g/dL [facility] Sodium [Moles/Vol] 137 mmol/L 136 - 144 mmol/L [facility] Urea nitrogen [Mass/Vol] 16 mg/dL 9 - 24 mg/dL [facility] HbA1c (Bld)on 06-16-2023 Average glucose Estimated from glycated hemoglobin (Bld) [Mass/Vol] 120 mg/dL [facility] HbA1c (Bld) [Mass fraction] 5.8 % High 4.3 - 5.6 % [facility] Lipid 1996 panelon Cholesterol [Mass/Vol] 95 mg/dL <200 mg/dL [facility] Cholesterol in HDL [Mass/Vol] 40 mg/dL >39 mg/dL [facility] Cholesterol in LDL [Mass/Vol] 36 mg/dL <100 mg/dL [facility] Cholesterol in LDL/Cholesterol in HDL [Mass ratio] 0.90 {ratio} <2.54 [facility] Cholesterol in VLDL [Mass/Vol] 19 mg/dL <30 mg/dL [facility] Cholesterol non HDL [Mass/Vol] 55 mg/dL <130 mg/dL [facility] Cholesterol.total/Ch olesterol in HDL [Mass ratio] 2.38 {ratio} <5.10 [facility] Fasting Time 12 hrs [facility] Triglyceride [Mass/Vol] 96 mg/dL <150 mg/dL [facility] VITAMIN D 25 HYDROXYon 06-15 25-hydroxyvitamin D3 [Mass/Vol] 68.8 ng/mL 31.0 - 80.0 ng/mL [facility] CNOVon 06-14-2023 CNOV Office Visit (ORFWHP ) GALA YUN ([id number]) 1980 M Date Time Provider Department 06/14/23 8:45 AM [place] [facility] During your visit today, we recorded the following information about you: Temperature Pulse Blood pressure Weight 97.5 degrees 69/minute 136/80 107 kg Height 1.981 m Holland Mo MD 06/14/2023 10:28 AM Signed CONSULT ORTHOPAEDIC: HIP PRIMARY CARE PHYSICIAN: Vesta Stallworth MD REFERRING PROVIDER: Zoran Mathews MD [address] [facility] [address] [address] [facility] [id number] ASSESSMENT AND PLAN Impression: Right Hip Moderate Degenerative Osteoarthritis, Post-Traumatic and Labral Tear Referred by Dr. Zoran Mathews for right hip pain in the setting of multiple previous right hip scope arthroplasty Patient last saw Dr. Mathews on June 10, 2023 for continued right hip pain. He was referred to our office to discuss a hip resurfacing. In the meantime, he was also ordered a right hip CSI. Some left hip pain but mostly right hip Pain location: Groin, lateral hip pain Activities creating pain: Walking, going down stairs/incline, sleeping, going from sitting to standing Therapy to date - Ice or Heat: Ice OTC/Rx Medications (Topical/PO): Ibuprofen, Creatinine is stable and WNL per last value on 11/10/2022 Brace/Splint: none Assist Device: not at this time Physical Therapy: Just finished PT in April, continues with stretching and daily HEP Injections: Cortisone in between scope procedures and was not super beneficial Surgery: 09/17/2021 -right hip scope with labral repair, acetabuloplasty, chondroplasty, synovectomy, microfracture, extensive femoroplasty, and capsular closure 12/23/2022-right hip scope revision with labral repair, chondroplasty, synovectomy, extensive lysis of adhesions, revision femoroplasty, capsular closure Recent BMI: 27.27 PMHx: - Diabetes, Type 2 - well controlled. Last A1c was 5.9 on 11/10/2022 - HTN - Anxiety/Depression Home Situation: Lives with and daughter Smoking Status: Patient is a former smoker, quit in 2008 Occupation: [employer] for [employer], mostly sedentary Hobbies: wants to get back to golf, hiking Imaging: He will need direct lateral hip films and plain hip films with mag markers. Outside images reviewed today below. Diagnoses: (M16.11) Primary osteoarthritis of right hip (primary encounter diagnosis) (S73.191D) Tear of right acetabular labrum, subsequent encounter (D64.9) Anemia, unspecified type Based upon the evaluation today and after discussions with Gala Yun, Gala Yun has significant, worsening pain at the hip. This pain is increased with activity and weight bearing, and interferes with activities of daily living. These symptoms have continued despite a number of non-surgical measures, including a trial of oral pain medication (for at least 12 weeks). At this point, the patient will not benefit from further PT due to the severity of their condition. The patient's physical examination is consistent with limitations in range of motion, pain with passive range of motion, and an antalgic gait. These examination findings are corroborated by imaging findings of joint space narrowing, periarticular osteophyte formation, and subchondral sclerosis. The patient has been treated by the practice and all reasonable treatments have failed to control the disease, which causes significant pain and limits activities of daily living. The patient has failed conservative treatment and joint replacement surgery was discussed and agreed upon by both provider and patient. The patient has elected to proceed with surgical management to improve function and relieve pain refractory to non-surgical measures: right Brandon hip resurfacing as evidenced by proximal femoral bone geometry and bone quality are sufficient for hip resurfacing, and the patient would otherwise recieve a conventional primary total hip replacement and progressive symptoms. Progressive symptoms include: Pain impacting sleep or causing fatigue Pain worsened by weight bearing Pain limiting ability to stay fit and healthy. We had a lengthy discussion regarding the risk and benefit of surgery, the alternatives, limitations and personnel involved. These included but were not limited to infection, persistent pain, instability, nerve injury, blood clots, and medical complications. We also discussed the pre-operative course, surgery itself and rehabilitation. Emilee-operative blood management and transfusion issues were discussed, and options clearly outlined. The patient has consented to the use of the banked allogenic blood if medically necessary. The patient has elected to schedule surgery at this time or intends to call the office with a surgical date. Shared decision making occurred while obtaining informed consent. The patient will (more content not included)... Normal [facility] Laboratory - Microbiology an d Antimicrobial susceptibilityon 06-14-2023 S. aureus and MRSA panel KELLY+probe (Nose) Negative Negative [facility] STAPH AUREUS PCRon S. aureus and MRSA panel KELLY+probe (Nose) Normal Negative [facility] Comment on above: Order Comment: Speci men Type: SWAB OF INTERNAL NOSE Ordering Facility: [facility] Address: [address] [place] [address] Result Comment: Nega tive for Staphylococcus aureus by PCR. Negative for MRSA by PCR Performed By: #### S APCR #### [facility] CLIA [id number] [address] [place], [place] [id number] [place] ECG COMPLETEon 01-26-2023 Atrial Rate 82 BPM [facility] Calculated P [place] 40 degrees [facility] Calculated R [place] 26 degrees [facility] Calculated T [place] 49 degrees [facility] P-R Interval 142 ms [facility] QRS Duration 98 ms [facility] QT Interval 366 ms [facility] QTC Calculation (Bazett) 427 ms [facility] Ventricular Rate 82 BPM [facility] Office Visiton 05-12-2022 Follow-up visit [id number] Charles Yun gillian 1980 M Date Provider Department Center 05/12/2022 [id number] STOCK[place] [facility] None No family history on file Level of Service:15997 [place] OFFICE/OUTPT VISIT,PROCEDURE ONLY Reason for Visit and Comments: Hip Pain [019000] Normal [facility] Progress Noteon 05-12-2022 Progress Note [facility] [address] [place] [id number] Dept: [phone] Dept Chief Complaint Patient presents with Hip Pain Subjective History of Present Illness: Gala Yun is a 42 y.o. male who presents today for ultrasound guided injection of right hip. He rates symptoms as a 3/10 at rest and a 8/10 at worst. Imaging to date: MRI April 2022 Prior targeted injections: Corticosteroid February 2022. No change in symptoms. Fall risk assessment: Less than 65, not applicable Objective There were no vitals taken for this visit. Physical Exam: No sign of infection overlying injection site. External Notes No pertinent interval updates Labs No results found for: HGBA1C No results found for: CREATININE Imaging No new imaging since last visit EMG/NCT N/A Procedure Procedure completed today, details below Use of ultrasound visualization of the needle was required to increase patient's safety by excluding inadvertent intermuscular or intertendinous placement and minimizing bleeding and injury by avoiding osteochondral and nearby neurovascular structures. Guidance also maximizes accurate injection placement and likely clinical benefit beyond that obtained from a non-guided injection. This allows increased diagnostic specificity when evaluating effectiveness of the injection. Verbal and written consent was obtained from the patient. Consent included possibility of bleeding, infection, worsening pain. Initial attempt at left antecubital blood draw did not yield the vein. Right antecubital blood draw yielded 53 mL of whole blood which was spun down, using the [employer] system dialing in 2 % hematocrit, PRP that yielded 2.6 mL of PRP and I added 3.4 mL of PPP for a total of 6 mL. Using real-time ultrasound I localized the Right hip joint. Sterile prep. Using a 20-gauge 3.5 inch needle and using direct ultrasound guidance I anesthetized the soft tissues with 5mL of 1% lidocaine to and then injected 0.5 mL of normal saline to flush any residual anesthetic out of the needle. I then injected a total of 6 mL of the PRP into the Right hip joint. The patient tolerated the procedure well. There were no complications. Pertinent ultrasound images were saved. Assessment Diagnosis Plan 1. Tear of right acetabular labrum, initial encounter lidocaine (Xylocaine) 1 % injection 5 mL UNABLE TO FIND CLINIC ADMINISTERED MED 0.5 mL 2. Primary osteoarthritis of right hip lidocaine (Xylocaine) 1 % injection 5 mL UNABLE TO FIND CLINIC ADMINISTERED MED 0.5 mL Plan - Post injection instructions were given to the patient. - Keep with HEP. - f/u per Dr. Mathews Follow up if symptoms worsen or fail to improve. Rhoda Langley MD 05/12/2022 11:25 AM Please note that portions of this note may have been completed with voice recognition software. Documentation reviewed prior to signing but minor errors in animal rescuer may have occurred. Normal [facility] 36on 04-29-2022 36 Pt was seen today by Dr. Langley in the [place] office and paid for his PRP injection via credit card. Normal [facility] Office Visiton 04-29-2022 Follow-up visit [id number] Charles Yun 1980 M Date Provider Department Center 04/29/2022 [id number]-AHOLRHODA LANGLEY [facility] None No family history on file Level of Service:70547 [place] OFFICE/OUTPATIENT NEW MODERATE MDM 45-59 MINUTES Reason for Visit and Comments: New Patient [542] Hip Pain [831838] - right Normal [facility] Progress Noteon 04-29-2022 Progress Note [facility] [address] [facility] [id number] Dept: [phone] Dept Chief Complaint Patient presents with New Patient Hip Pain right Subjective History of Present Illness: Gala Yun is a 42 y.o. male who presents today for evaluation of right hip pain. Location: lateral and medial Onset: over the last year, chronic Injury: no Quality: aching, throbbing, and sharp Mechanical symptoms: popping, crepitus and catching Radiation of symptoms: yes - radiates down his right leg all the way to his pinky toe and sometimes to his groin when he is working out Severity: 3/10 at rest and 8/10 at worst Exacerbating factor(s): walking, prolonged standing, and prolonged sitting Relieving factor(s): lying down, standing still Timing: all day Imaging to date: None Treatment to date: PT/OT/HEP: yes, formal physical therapy for did 30 sessions October-February 2022. Helpful at first and then towards the end it became very painful Ice: yes, helpful Heat: yes, not helpful Medications: Tylenol: no NSAIDs: yes, Ibuprofen/Motrin/Advi l, helpful Oral steroids: no Muscle relaxants: no Nerve medications: no Targeted injections: Corticosteroid February 2022. No change in symptoms. 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 Respiratory: Breathing comfortably on room air. No respiratory distress. Skin: Warm, dry, intact. No visible rashes or erythema overlying area of focused exam. RIGHT HIP: Gait is normal. External Notes I personally reviewed external notes from: Dr. Mathews Labs No results found for: HGBA1C No results found for: CREATININE Imaging No imaging available for review EMG/NCT N/A Procedure No procedures completed today Assessment Diagnosis Plan 1. Right hip pain 2. Tear of right acetabular labrum, initial encounter 3. Primary osteoarthritis of right hip Plan -We discussed his MRI findings as well as his right hip pain and treatment options. -We discussed the role of PRP and that our goal is to obtain 60-80% improvement on the problem. There is an understanding that it can take about 6 to 8 weeks to notice any benefit from this PRP injection. We reviewed that my typical approach is 1 injection of PRP (except for the knee) and wait approximately 3-4 months and sometimes up to 6 months prior to repeat injection depending on the benefit. Pre and post care information of the PRP injection was given to the patient. Follow up if symptoms worsen or fail to improve. Rhoda Langley MD 04/29/2022 9:25 AM Please note that portions of this note may have been completed with voice recognition software. Documentation reviewed prior to signing but minor errors in animal rescuer may have occurred. [facility] 04-21-2022 36 Received records, imported into chart [place] [id number] 36 Patient was referred by Dr. Mathews this morning. Waiting on records. Scheduled for consult 04/29 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 Langley [facility] UA DIP, URINE (POC)on 2021 BILIRUBIN UA (POCT) Negative Negative [facility] CLARITY UA (POCT) Clear [facility] COLOR UA (POCT) Dark yellow [facility] GLUCOSE UA (POCT) Negative Negative mg/dL [facility] HEMOGLOBIN/BLOOD UA (POCT) Negative Negative [facility] KETONE UA (POCT) Negative Negative mg/dL [facility] LEUKOCYTES UA (POCT) Negative [facility] NITRITE UA (POCT) Negative Negative [facility] PH UA (POCT) 6.0 4.5 - 8.0 [facility] Protein Ql (U) Negative Negative mg/dL [facility] SPECIFIC GRAVITY UA (POCT) 1.020 1.005 - 1.030 [facility] UROBILINOGEN UA (POCT) 0.2 E.U./dL Normal E.U./dL [facility] Basophil percentageon 2021 Basophil percentage 0 SEEN /hpf 0-5 [facility] Work Phone: Bilirubin Test strip Ql (U)o n 09-17-2021 Bilirubin Ql (U) Negative Negative [facility] Work Phone: Ketones Test strip Ql (U)on 09-17-2021 Ketones Ql (U) 15 mg/dl Negative [facility] Work Phone: Mucus LM Ql (Urine sed)on Mucus Ql (Urine sed) 0 SEEN /hpf [facility] Work Phone: Nitrite Test strip Ql (U)on 09-17-2021 Nitrite Ql (U) Negative Negative [facility] Work Phone: Protein Test strip Ql (U)on 09-17-2021 Protein Ql (U) 15 mg/dl Negative [facility] Work Phone: Squamous epithelial cells de tection in urine sediment by light microscopyon 09-17-2021 Epithelial cells.squamous LM Ql (Urine sed) 0-5 SEEN /hpf 0-5 [facility] Work Phone: Urine blood detectionon 09-02 RBC Ql (U) 10 /ul Negative [facility] Work Phone: RBC Ql (U) 0-5 SEEN /hpf 0-5 [facility] Work Phone: Urine clarityon 09-17-2021 Clarity (U) Clear Clear [facility] Work Phone: Urine color determinationon 09-17-2021 Color (U) Yellow Yellow [facility] Work Phone: Urine glucose detectionon Glucose Ql (U) 1000 mg/dl Normal [facility] Work Phone: Urine leukocyte esterase det ection by dipstickon 09-17-2021 Leukocyte esterase Test strip Ql (U) Negative Negative [facility] Work Phone: Urine pHon 09-17-2021 pH (U) 6.0 [pH] 5.0 - 8.0 [facility] Work Phone: Urine sediment bacteria coun t by microscopy (number/high power field)on 09-17-2021 Bacteria LM.HPF (Urine sed) [#/Area] 0 /[HPF] None Seen [facility] Work Phone: Urine specific gravity measu rementon 09-17-2021 Specific gravity (U) [Rel density] 1.020 1.002-1.030 [facility] Work Phone: Urobilinogen Auto test strip Ql (U)on 09-17-2021 Urobilinogen Ql (U) Normal mg/dl Normal [facility] Work Phone: Clinical Summary: Yuniel maher 05-26-2021 [facility] OP Visit Invalid Interpretation Code [facility] Work Phone: NURSING PROGon 02-05-2021 NURSING PROG HNO ID: [id number] Author: Meghan Flores, RN Service: Nursing Author Type: Registered Nurse Type: Nursing Progress Note Filed: 02/05/2021 1:13 PM Note Text: Ketamine infusing 53.95 mg over 40 minutes PO status, order, consent confirmed. # 22 angio in left AC Started. MADRS is 11 compared with 15 from 35 days ago. Patient reports that he has high anxiety. Patient is able to maintain his mood in between appointments. [place] DEPRESSION RATING SCALE (MADRS) 1. Apparent Sadness: 0 Representing despondency, gloom and despair (more than just ordinary transient low spirits reflected in speech, facial expression, and posture. Rate by depth and inability to brighten up. Rate based on your observation during the visit. 0 No sadness 1 2 Looks dispirited but does brighten up without difficulty 3 4 Appears sad and unhappy most of the time 5 6 Looks miserable all the time. Extremely despondent 2. Reported Sadness: 1 Representing reports of depressed mood, regardless of whether it is reflected in appearance or not. Includes low spirits, despondency of the feeling of being beyond help or without hope. Rate according to intensity, duration, and the extent to which the mood is reported to be influenced by events. *In the last week, have you been feeling sad or unhappy? *Depressed at all? *Hopeless at all? *How bad has it been? 0 Occasional sadness in keeping with the circumstances 1 2 Sad or low but brightens up without difficulty 3 4 Pervasive feelings of sadness or gloominess. Mood is still influenced by external circumstances. 5 6 Continuous or unvarying sadness, misery, or despondency 3. Inner Tension: 4 Representing feelings of ill-defined discomfort, edginess, inner turmoil, mental tension mounting to either panic, dread, or anguish. Rate according to intensity, frequency, duration, and the extent reassurance is called for. *Have you felt tense or edgy in the last week? *What has it take to help you feel better? 0 [place]. Only fleeting inner tension 1 2 Occasional feelings of edginess and ill defined discomfort 3 4 Continuous feelings of inner tension or intermittent panic which can only be mastered with some difficulty 5 6 Unrelenting dread or anguish. Overwhelming panic 4. Reduced Sleep: 0 Representing the experience of reduced duration or depth of sleep compared to the patient's own normal pattern when well. *How has your sleeping been in the last week? (hours compared to normal) *Have you had trouble falling asleep? *Trouble staying asleep? *Has your sleep been restless or disturbed? 0 Sleeps as usual 1 2 Slight difficulty dropping off to sleep or slightly reduced, light or fitful sleep 3 4 Sleep reduced or broken by at least 2 hours 5 6 Less than two or three hours of sleep 5. Reduced Appetite: 0 Representing the feeling of a loss of appetite compared with when well. Rate by loss of desire for food or the need to force oneself to eat. *How has your appetite been this week compared to normal? *Less interested? *Force yourself to eat? *Others urging you? 0 Normal or increased appetite 1 2 Slightly reduced appetite 3 4 No appetite. Food is tasteless 5 6 Needs persuasion to eat at all 6 Concentration Difficulties: 1 Representing difficulties in collecting one's thoughts mounting to incapacitating lack of concentration. Rate according to intensity, frequency, and degree of incapacity produced. *Have you had troubles concentrating or collecting your thoughts in the past week? *Any trouble concentrating on your everyday activities? 0 No difficulties in concentration 1 2 Occasional difficulties in collecting one's thoughts 3 4 Difficulties in concentration and sustaining thought which reduces ability to read or hold a conversation 5 6 Unable to read or converse without great difficulty 7. Lassitude: 2 Representing a difficulty getting started or slowness initiating and performing everyday activities. *Have you done everyday things more slowly than usual? 0 Hardly any difficulty getting started. No sluggishness 1 2 Difficulties in starting activities 3 4 Difficulties in starting simple routine activities which are carried out with effort 5 6 Complete lassitude. Unable to do anything without help 8: Inability to Feel:1 Representing the subjective experience of reduced interest in surrounding or activities that normally give pleasure. The ability to react with adequate emotion to circumstances or people is reduced. *Have you been less interested in things around you/things you used to enjoy? *Do you still enjoy things as much? *How are you feeling about your friends? *Do you feel less/nothing if you meet them? 0 Normal interest in surroundings and in other people 1 2 Reduced ability to enjoy usual interests 3 4 Loss of interest in surroundings. Lost of feelings fo (more content not included)... [facility] NURSING PROGon 01-01-2021 NURSING PROG HNO ID: [id number] Author: Meghan Flores RN Service: Nursing Author Type: Registered Nurse Type: Nursing Progress Note Filed: 01/01/2021 11:49 AM Note Text: Ketamine infusing 53.65 mg over 40 minutes PO status, order, consent confirmed. # 22 angio in left AC Started. MADRS is 15 compared with 16 from 35 days ago. Patient is clean AND dressed appropriately. Patient reports an improvement in moods since last treatment. Patient is able to maintain moods in between treatments. 1015-Ketamine infusion started *Please see flowsheet for patients vitals. 1055-Ketamine infusion completed. NS 500 cc up 1155-Discharge instructions reviewed; no questions or concerns. Patient spent most of treatment relaxing in bed with ear buds in. Patient's breathing is easy AND unlabored with normal sinus rhythm. Patient is ready to discharge, A0x3 no concerns noted at this time. Denied perceptual disturbances ALENA dissociation. Ambulated; gait is steady. IV access removed. Hard copies given. Discharged home. [facility] NURSING PROGon 11-27-2020 NURSING PROG HNO ID: [id number] Author: Meghan Flores RN Service: Nursing Author Type: Registered Nurse Type: Nursing Progress Note Filed: 11/27/2020 11:54 AM Note Text: Ketamine infusing 54.05 mg over 40 minutes PO status, order, consent confirmed. # 22 angio in left AC Started. MADRS is 16 compared with 12 from 49 days ago. Patient has had a rough couple of week. Depression is elevated. Patient is clean and dressed appropriately. 1007-Ketamine infusion started *Please see flowsheet for patients vitals 1047-Ketamine infusion completed. NS 500 cc up 1147-Discharge instructions reviewed; no questions or concerns. Patient spent treatment resting in bed with ear buds in occasionally looking at cell phone. Patient's breathing is easy AND unlabored with normal sinus rhythm. Patient is ready to discharge, A0x3 no concerns noted at this time. Denied perceptual disturbances AND dissociation. Ambulated; gait is steady. IV access removed. Hard copies given. Discharged home in [facility]. [facility] NURSING [facility] 10-09-2020 NURSING PRO HNO ID: [id number] Author: Meghan Flores RN Service: Nursing Author Type: Registered Nurse Type: Nursing Progress Note Filed: 10/09/2020 12:06 PM Note Text: Ketamine infusing 53.4 mg over 40 minutes PO status, order, new consent obtained and new MOCA completed. # 22 angio in left AC Started. MADRS is 12 compared with 8 from 35 days ago. Patient just returned from vacation in [place] . Patient reports having a a day that he had difficulty brightening up. However, for the most part the patient is able to maintain moods in between treatments. 1019-Ketamine infusion started *Please review flowsheet for vitals. 1059-Ketamine infusion completed. NS 500 cc up 1115-Patient ambulated to restroom, gait is steady. Removed IV access. 1159-Discharge instructions reviewed; no questions or concerns. Patient spent most of treatment resting in bed with eyes closed with ear buds in. Patient's breathing is easy AND unlabored with normal sinus rhythm. Patient is ready to discharge, A0x3 no concerns noted at this time. Denied perceptual disturbances AND dissociation. Hard copies given. Discharged home. [facility] XR Pelvis and Hip - right AP and Lateral frogon 09-11-2020 IMPRESSION: Mild degenerative changes in the right hip. Knowledge Manager: CHARY Transcribe Date/Time: Sep 11 2020 2:33P Dictated by : CHAVA MCDONALD MD This examination was interpreted and the report reviewed and electronically signed by: CHAVA MCDONALD MD on Sep 11 2020 2:34PM [facility] DIVISION OF RADIOLOGY * * *Final Report* * * DATE OF EXAM: Sep 11 2020 2:07PM STX 5352 - XR HIP 3V PELV+ AP/LAT RT / PROCEDURE REASON: Pain * * * * Physician Interpretation * * * * HISTORY: RIGHT GROIN AND LATERAL HIP PAIN FOR AT LEAST 2 YEARS. NO KNOWN INJURIES.. Pain . TECHNIQUE: XR HIP 3V PELV+ AP/LAT RT Laterality: RIGHT Number of different views (projections): 3 COMPARISON: None RESULT: Mild benign remodeling of the femoral head neck junction on the right side. There is mild narrowing of the medial aspect of the right hip. No fracture identified. The left hip is unremarkable. Bony pelvis is intact. DIVISION OF RADIOLOGY Provider, [facility] - 09/11/2020 * * *Final Report* * * DATE OF EXAM: Sep 11 2020 2:07PM STX 5352 - XR HIP 3V PELV+ AP/LAT RT / PROCEDURE REASON: Pain * * * * Physician Interpretation * * * * HISTORY: RIGHT GROIN AND LATERAL HIP PAIN FOR AT LEAST 2 YEARS. NO KNOWN INJURIES.. Pain . TECHNIQUE: XR HIP 3V PELV+ AP/LAT RT Laterality: RIGHT Number of different views (projections): 3 COMPARISON: None RESULT: Mild benign remodeling of the femoral head neck junction on the right side. There is mild narrowing of the medial aspect of the right hip. No fracture identified. The left hip is unremarkable. Bony pelvis is intact. IMPRESSION IMPRESSION: Mild degenerative changes in the right hip. Knowledge Manager: CHARY Transcribe Date/Time: Sep 11 2020 2:33P Dictated by : CHAVA MCDONALD MD This examination was interpreted and the report reviewed and electronically signed by: CHAVA MCDONALD MD on Sep 11 2020 2:34PM [facility] Radiology Study observation (narrative) [facility] XR Pelvis and Hip - right AP and Lateral frogOrdered By: [facility] Provider on 09-11-2020 [facility] NURSING PROGon 09-04-2020 NURSING PROG HNO ID: [id number] Author: Meghan Flores RN Service: Nursing Author Type: Registered Nurse Type: Nursing Progress Note Filed: 09/04/2020 11:40 AM Note Text: Ketamine infusing 53.6 mg over 40 minutes PO status, order, consent confirmed. # 22 angio in left AC Started. MADRS is 8 compared with 12 from 35 days ago. Patient reports feeling good surprising better than normal. Patient is able to maintain mood in between treatments. Patient has high anxiety; which is a constant problem for him. Patient is clean AND dressed appropriately. 1000-Patient resting in bed; with ear buds in 1015-Patient resting in bed; with ear buds in 1030-Patient resting in bed; with ear buds in 1040-NS 500 cc up. Resting quietly in bed. 1055-Resting quietly in bed; with ear buds in 1110-Resting quietly in bed; with ear buds in 1125-Resting quietly in bed; talking with staff. 1140-Discharge instructions reviewed; no questions or concerns. Patient spent most of treatment; resting in bed with ear buds in. Patient's breathing is easy AND unlabored with normal sinus rhythm. Patient is ready to discharge, A0x3 no concerns noted at this time. Denied perceptual disturbances AND dissociation. Ambulated; gait is steady. IV access removed. Hard copies given. Discharged home in [place]. [facility] 07-31-2020 [facility] Telephone (INFALEXANDRAU) GALA YUN ([id number]) 1980 M Date Time Provider Department 07/31/20 MEGHAN FLORES During your visit today, we recorded the following information about you: Allergies As of Date: 07/31/2020 Noted Allergy Reaction PREDNISONE 01/16/2019 5 - Intolerance Comments: Did not tolerate and would not take again--not sure the exact adverse effect. 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] Primary Visit Diagnosis:MDD (major depressive disorder), recurrent episode, mild (HCC) [F33.0] Order(s):PRE-PROCEDUR E AND PRE-OPERATIVE COVID [SQPOCOVD] Order #: [id number] FUTURE Prescriptions as of 07/31/2020 Sig: LISINOPRIL 10 MG TABLET Take 1 tablet by mouth once d* ALPRAZOLAM 1 MG TABLET Take 1 tablet by mouth once d* ATORVASTATIN 20 MG TABLET Take 1 tablet by mouth once d* METFORMIN ER 500 MG TABLET,EX* Take 1 tablet by mouth daily * CHOLECALCIFEROL (VITAMIN D3) * Take 1 capsule by mouth once * BLOOD SUGAR DIAGNOSTIC STRIPS Test blood sugar(s) 1 times d* ASPIRIN 81 MG TABLET,DELAYED * Take 1 tablet by mouth once d* LANCETS Test blood sugar(s) 1 times d* Problem List As Of Date 07/31/2020 Noted Resolved Panic [F41.0] 06/19/2014 Social phobia [F40.10] 06/19/2014 FH: hemochromatosis [Z83.49] 07/16/2014 Dysthymia [F34.1] 07/17/2014 Recurrent major depressive disorder, in partial*06/20/2015 Atypical chest pain [R07.89] 07/17/2015 ADHD (attention deficit hyperactivity disorder)*12/19/2015 Body dysmorphic disorder [F45.22] 07/28/2016 Type 2 diabetes mellitus without complication, *03/07/2018 Hypertension, essential [I10] 04/07/2018 Night sweats [R61] 08/06/2018 Vitamin D deficiency [E55.9] 08/06/2018 Hypertriglyceridemia [E78.1] 08/06/2018 Encounter Status:Closed by MEGHAN FLORES on 07/31/20 [facility] NURSING PROGon 07-31-2020 NURSING PROG HNO ID: [id number] Author: Kaylynn Crum RN Service: Nursing Author Type: Registered Nurse Type: Nursing Progress Note Filed: 07/31/2020 12:19 PM Note Text: Ketamine infusing 53.2 mg over 40 minutes PO status, order, consent confirmed. # 22 angio in ..left AC. Started. MADRS is 12 compared with 16 from 35 days ago. 1008-Ketamine infusion started 1023-Resting quietly in bed listening to music. 1038 Resting quietly in bed and listening to music. Resting quietly in NAD 1055Ketamine infusion completed. NS 500 cc up 1053 Resting quietly in bed listening to music 1108 Resting quietly in bed listening to music 1123 resting quietly in bed listening to music 1138 resting in bed listening to music 1153 resting in bed listening to music Discharge instructions reviewed. IV removed. Hard copies given. Discharged home [facility] NURSING PROGon 06-26-2020 NURSING PROG HNO ID: [id number] Author: Joyce (Rn) DOLORES Osuna Service: ? Author Type: Registered Nurse Type: Nursing Progress Note Filed: 06/26/2020 11:57 AM Note Text: Ketamine infusion 54.3 mg over 40 mins PO status, order, consent confirmed. # 22 angio in left ac Started. MADRS is 16 compared with 13 from 35 days ago. Pt reports he has been doing well. His symptoms are mild and he would like to stay at [facility] 5 [facility]. Pt has been stable, working, and is planning a trip to [place] for his friends birthday. 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 1020-Resting quietly in NAD 1035-Resting quietly in NAD 1050-Resting quietly in NAD 1105-Resting quietly in NAD 1120-Resting quietly in NAD 1135-Resting quietly in NAD 1145--Resting quietly in NAD 1149-Pt up ambulating with steady gait. No dissociative or perceptual abnormalities. Pt in restroom. 1155-Discharge instructions reviewed. IV removed. Hard copies given. Discharged home in [facility]. [facility] 05-22-2020 [facility] Telephone (INFULU) GALA YUN ([id number]) 1980 M Date Time Provider Department 05/22/20 JOYCE OSUNA (RN) JUAQUIN During your visit today, we recorded the following information about you: Allergies As of Date: 05/22/2020 Noted Allergy Reaction PREDNISONE 01/16/2019 5 - Intolerance Comments: Did not tolerate and would not take again--not sure the exact adverse effect. 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] Primary Visit Diagnosis:Recurrent major depressive disorder, remission status unspecified (HCC) [F33.9] Order(s):PRE-PROCEDUR E AND PRE-OPERATIVE COVID [SQPOCOVD] Order #: [id number] FUTURE Prescriptions as of 05/22/2020 Sig: ALPRAZOLAM 1 MG TABLET Take 1 tablet by mouth once d* ATORVASTATIN 20 MG TABLET Take 1 tablet by mouth once d* METFORMIN ER 500 MG TABLET,EX* Take 1 tablet by mouth daily * LISINOPRIL 10 MG TABLET Take 1 tablet by mouth once d* CHOLECALCIFEROL (VITAMIN D3) * Take 1 capsule by mouth once * BLOOD SUGAR DIAGNOSTIC STRIPS Test blood sugar(s) 1 times d* ASPIRIN 81 MG TABLET,DELAYED * Take 1 tablet by mouth once d* LANCETS Test blood sugar(s) 1 times d* Problem List As Of Date 05/22/2020 Noted Resolved Panic [F41.0] 06/19/2014 Social phobia [F40.10] 06/19/2014 FH: hemochromatosis [Z83.49] 07/16/2014 Dysthymia [F34.1] 07/17/2014 Recurrent major depressive disorder, in partial*06/20/2015 Atypical chest pain [R07.89] 07/17/2015 ADHD (attention deficit hyperactivity disorder)*12/19/2015 Body dysmorphic disorder [F45.22] 07/28/2016 Type 2 diabetes mellitus without complication, *03/07/2018 Hypertension, essential [I10] 04/07/2018 Night sweats [R61] 08/06/2018 Vitamin D deficiency [E55.9] 08/06/2018 Hypertriglyceridemia [E78.1] 08/06/2018 Encounter Status:Closed by JOYCE OSUNA on 06/03/20 [facility] NURSING PROGon 05-22-2020 NURSING PROG HNO ID: [id number] Author: Meghan PeñaRn) Sandra RN Service: Nursing Author Type: Registered Nurse Type: Nursing Progress Note Filed: 05/22/2020 12:10 PM Note Text: Ketamine infusing 55.35 mg over 40 minutes PO status, order, consent confirmed. # 22 angio in left AC Started. MADRS is 13 compared with 13 from 36 days ago. Patient is clean AND dressed appropriately. Patient has a bright affect, he is talking and laughing with staff. Patient feels that he found the correct time in between appointments to maintain his moods. Patient does admit to some SI, but according to patient it flutters in and then right back out of his mind. Patient has no plan, and can remain safe. 1027-Patient is resting in bed with eyes closed, listening to music 1042-Patient is resting in bed with eyes closed, listening to music 1057-Patient is resting in bed with eyes closed, listening to music 1107-NS 500 cc up. Patient is resting in bed. 1122-Resting in bed listening to music 1137-Resting in bed listening to music. Patient scheduling COVID test. 1152-Resting in bed, talking with staff. Removed IV access 1207-Resting in bed, ambulated to restroom 1207-Discharge instructions reviewed; no questions or concerns. Patient spent most of treatment listening to music. Patient's breathing is easy AND unlabored with normal sinus rhythm. Patient is ready to discharge, A0x3 no concerns noted and this time. Denies perceptual disturbances AND dissociation. Ambulated; gait is steady. IV access removed. Hard copies given. Discharged home with friend. Patient's next treatment is scheduled in 5 weeks. Patient aware that he needs a negative COVID test at least 3 days prior to treatment. [facility] NURSING PROGon 04-17-2020 NURSING PROG HNO ID: [id number] Author: Meghan PeñaRn) Sandra RN Service: Nursing Author Type: Registered Nurse Type: Nursing Progress Note Filed: 04/17/2020 12:24 PM Note Text: Ketamine infusing 58.9 mg over 40 minutes PO status, order, completed new consent AND completed a MOCA. # 22 angio in left AC Started. MADRS is 13 compared with 15 from 35 days ago. Patient had a good holiday, his family AND self went to [place] for a week. Rented a little cabin AND walked around the water. Patient has had a little more sadness than normal but not anything he can't deal with. Patient is well groomed AND does brighten upon approach with staff. He is AOx3 1003-Resting in bed with ear buds in 1018-Resting in bed with ear buds in 1033-Resting in bed with ear buds in 1043-NS 500 cc up 1058-Resting quietly in bed with ear buds looking at phone. 1113-Resting quietly in bed with ear buds in looking at phone. 1128-Set up COVID test for next month. Removed patient's IV access. 1143-Patient sitting up in bed; communicating with staff. 1143-Discharge instructions reviewed; no questions or concerns. Patient spend most of treatment resting quietly in bed, breathing is easy AND unlabored with normal sinus rhythm. Patient is ready for discharge; no concerns noted. He is AOx3, denies any perceptual disturbance or dissociation charges. Patient ambulated to restroom before leaving; gait is steady. Hard copies given. Discharged home in [place]. Patient's next treatment is in 5 weeks. [facility] NURSING PROGon 03-13-2020 NURSING PROG HNO ID: [id number] Author: Meghan PeñaRn) DOLORES Flores Service: Nursing Author Type: Registered Nurse Type: Nursing Progress Note Filed: 03/13/2020 12:00 PM Note Text: Ketamine infusing 55 mg over 40 minutes PO status, order, consent confirmed. # 22 angio in right AC Started. MADRS is 15 compared with 14 from 35 days ago. Patient is well groomed, smiling AND joking with staff and other patients. Patient reports things aren't that good. This nurse didn't have the opportunity to explore that statement; do to patient starting conversation with another patient. Patient is AOx3. Patient denies HI/VH/AH. Patient reports some SI sometimes thoughts pop into his head but no plan and patient is able to dismiss them. Patient does have pessimistic thoughts and is able to work through them. 1011-Patient resting in bed with headphones in. 1026-Resting quietly in NAD 1041-Resting quietly in NAD 1051-NS 500 cc up 1054-Wasted 45 mg 1106-Resting quietly in NAD 1121-Resting quietly in NAD 1136-Resting quietly in NAD 1151-Resting quietly in NAD Discharge instructions reviewed; no questions or concerns. Patient spent infusion with eye closed listening to ear buds; patient's breathing is easy and unlabored with normal sinus rhythm. Patient ambulated; gait is steady. Patient denies perceptual disturbances. He is ready to discharge, he is AOx3 and no concerns noted. IV removed. Hard copies given. Discharged home in [facility]. Patient is scheduled for his next treatment in 5 weeks. Pre-screen for COVID is scheduled at least 7 days prior to next appointment. [facility] Vital Signs Date Time Vital Sign Value Performing Clinician Facility 08-16-2024 08:55-0400 Body height 198.[address] Vesta Stallworth MD Work Phone: [facility] 08-16-2024 08:55-0400 Body mass index (BMI) [Ratio] 27.9 kg/m2 Dr. Vesta Stallworth MD Work Phone: [facility] 08-16-2024 08:55-0400 Body temperature 98.4 [degF] Dr. Vesta Stallworth MD Work Phone: [facility] 08-16-2024 08:55-0400 Body weight 109.[address] Vesta Stallworth MD Work Phone: [facility] 08-16-2024 08:55-0400 Diastolic blood pressure 95 mm[Hg] Dr. Vesta Stallworth MD Work Phone: [facility] 08-16-2024 08:55-0400 Heart rate 65 /min Dr. Vesta Stallworth MD Work Phone: [facility] 08-16-2024 08:55-0400 Respiratory rate 17 /min Dr. Vesta Stallworth MD Work Phone: [facility] 08-16-2024 08:55-0400 SaO2% (BldA) [Mass fraction] 97 % Dr. Vesta Stallworth MD Work Phone: [facility] 08-16-2024 08:55-0400 Systolic blood pressure 148 mm[Hg] Dr. Vesta Stallworth MD Work Phone: [facility] 07-05-2024 14:25-0400 Diastolic blood pressure 96 mm[Hg] Allie Finelli DO Work Phone: [facility] 07-05-2024 14:25-0400 Heart rate 76 /min Allie Finelli DO Work Phone: [facility] 07-05-2024 14:25-0400 Respiratory rate 15 /min Allie Finelli DO Work Phone: [facility] 07-05-2024 14:25-0400 SaO2% (BldA) [Mass fraction] 99 % Allie Finelli DO Work Phone: [facility] 07-05-2024 14:25-0400 Systolic blood pressure 158 mm[Hg] Alile Finelli DO Work Phone: [facility] 07-05-2024 13:55-0400 Body temperature 97 [degF] Allie Finelli DO Work Phone: [facility] 07-05-2024 12:15-0400 Body height 198.1 cm Allie Finelli DO Work Phone: [facility] 07-05-2024 12:15-0400 Body mass index (BMI) [Ratio] 27.62 kg/m2 Allie Finelli DO Work Phone: [facility] 07-05-2024 12:15-0400 Body weight 108.41 kg Allie Finelli DO Work Phone: [facility] 07-05-2024 09:59-0400 Diastolic blood pressure 77 mm[Hg] Anthony Martinez MD Work Phone: [facility] 07-05-2024 09:59-0400 Heart rate 59 /min Anthony Martinez MD Work Phone: [facility] 07-05-2024 09:59-0400 Respiratory rate 16 /min Anthony Martinez MD Work Phone: [facility] 07-05-2024 09:59-0400 SaO2% (BldA) [Mass fraction] 95 % Anthony Martinez MD Work Phone: [facility] 07-05-2024 09:59-0400 Systolic blood pressure 142 mm[Hg] Anthony Martinez MD Work Phone: [facility] 07-05-2024 08:44-0400 Body mass index (BMI) [Ratio] 27.7 kg/m2 Anthony Martinez MD Work Phone: [facility] 07-05-2024 08:44-0400 Body temperature 97.2 [degF] Anthony Martinez MD Work Phone: [facility] 07-05-2024 08:44-0400 Body weight 108.7 kg Anthony Martinez MD Work Phone: [facility] 06-05-2024 08:01-0500 Diastolic blood pressure 70 mm[Hg] Vesta Stallworth MD Work Phone: [facility] 06-05-2024 08:01-0500 Systolic blood pressure 118 mm[Hg] Vesta Stallworth MD Work Phone: [facility] 06-05-2024 08:00-0500 Body mass index (BMI) [Ratio] 27.7 kg/m2 Vesta Stallworth MD Work Phone: [facility] 06-05-2024 08:00-0500 Body weight 108.7 kg Vesta Stallworth MD Work Phone: [facility] 06-05-2024 08:00-0500 Heart rate 98 /min Vesta Stallworth MD Work Phone: [facility] 06-05-2024 08:00-0500 SaO2% (BldA) [Mass fraction] 98 % Vesta Stallworth MD Work Phone: [facility] 05-03-2024 08:42-0500 Body mass index (BMI) [Ratio] 27.8 kg/m2 Rashida Praisler-Wood FR[employer] WORK INSPECTOR.[employer] Work Phone: [facility] 05-03-2024 08:42-0500 Body temperature 97.5 [degF] Rashida Praisler-Wood FRESH WORK INSPECTOR.[employer] FI[employer]MAN Work Phone: [facility] 05-03-2024 08:42-0500 Body weight 109.1 kg Rashida Praisler-Wood FRESH WORK INSPECTOR.[facility] Work Phone: [facility] 05-03-2024 08:42-0500 Diastolic blood pressure 76 mm[Hg] Rashida Praisler-Wood FRESH WORK INSPECTOR.[facility] Work Phone: [facility] 05-03-2024 08:42-0500 Heart rate 74 /min Rashida Praisler-Wood FRESH WORK INSPECTOR.[employer] FI[employer] Work Phone: [facility] 05-03-2024 08:42-0500 Respiratory rate 19 /min Rashida Praisler-Wood FRESH WORK INSPECTOR.[facility] Work Phone: [facility] 05-03-2024 08:42-0500 SaO2% (BldA) [Mass fraction] 98 % Rashida Praisler-Wood FRESH WORK INSPECTOR.[employer]ER FI[employer]MAN Work Phone: [facility] 05-03-2024 08:42-0500 Systolic blood pressure 122 mm[Hg] Rashida Praisler-Wood FRESH WORK INSPECTOR.[employer] Work Phone: [facility] 04-25-2024 11:07-0500 Body mass index (BMI) [Ratio] 28.26 kg/m2 Alessandra Zhou PA Work Phone: [facility] 04-25-2024 11:07-0500 Body temperature 96.91 [degF] Marcelislynika Abkseniagg PA Work Phone: [facility] 04-25-2024 11:07-0500 Body weight 110.9 kg Krislyn Aberegg PA Work Phone: [facility] 04-25-2024 11:07-0500 Diastolic blood pressure 72 mm[Hg] Krislyn Aberegg PA Work Phone: [facility] 04-25-2024 11:07-0500 Heart rate 70 /min Krislyn Aberegg PA Work Phone: [facility] 04-25-2024 11:07-0500 Respiratory rate 16 /min Krislyn Aberegg PA Work Phone: [facility] 04-25-2024 11:07-0500 SaO2% (BldA) [Mass fraction] 97 % Krislyn Aberegg PA Work Phone: [facility] 04-25-2024 11:07-0500 Systolic blood pressure 122 mm[Hg] Krislyn Aberegg PA Work Phone: [facility] 01-17-2024 14:26-0400 Body mass index (BMI) [Ratio] 27.74 kg/m2 Heather McFrederick PA-C Work Phone: [facility] 01-17-2024 14:26-0400 Body weight 108.86 kg Heather McFrederick PA-C Work Phone: [facility] 12-26-2023 13:40-0400 Body mass index (BMI) [Ratio] 27.88 kg/m2 Mi Taveras FR[employer] WORK INSPECTOR.[employer]ER FI[employer]MAN Work Phone: [facility] 12-26-2023 13:40-0400 Body temperature 97.5 [degF] Mi Darcy FRESH WORK INSPECTOR.[employer]ER FI[employer]MAN Work Phone: [facility] 12-26-2023 13:40-0400 Body weight 109.4 kg Mi Darcy FRESH WORK INSPECTOR.[employer]ER [employer]MAN Work Phone: [facility] 12-26-2023 13:40-0400 Diastolic blood pressure 72 mm[Hg] Mi Darcy FRESH WORK INSPECTOR.[employer]ER [employer]MAN Work Phone: [facility] 12-26-2023 13:40-0400 Heart rate 98 /min Mi Darcy FRESH WORK INSPECTOR.[employer]ER FI[employer]MAN Work Phone: [facility] 12-26-2023 13:40-0400 Respiratory rate 16 /min Mi Darcy FRESH WORK INSPECTOR.[employer]ER FI[employer]MAN Work Phone: [facility] 12-26-2023 13:40-0400 SaO2% (BldA) [Mass fraction] 98 % Mi Darcy FRESH WORK INSPECTOR.[employer]ER FI[employer]MAN Work Phone: [facility] 12-26-2023 13:40-0400 Systolic blood pressure 122 mm[Hg] Mi Darcy FRESH WORK INSPECTOR.[employer]ER [employer]MAN Work Phone: [facility] 11-23-2023 08:50-0400 Body mass index (BMI) [Ratio] 27.52 kg/m2 Vesta Stallworth MD Work Phone: [facility] 11-23-2023 08:50-0400 Body temperature 97.81 [degF] Vesta Stallworth MD Work Phone: [facility] 11-23-2023 08:50-0400 Body weight 108 kg Vesta Stallworth MD Work Phone: [facility] 11-23-2023 08:50-0400 Diastolic blood pressure 82 mm[Hg] Vesta Stallworth MD Work Phone: [facility] 11-23-2023 08:50-0400 Heart rate 86 /min Vesta Stallworth MD Work Phone: [facility] 11-23-2023 08:50-0400 Respiratory rate 16 /min Vesta Stallworth MD Work Phone: [facility] 11-23-2023 08:50-0400 SaO2% (BldA) [Mass fraction] 98 % Vesta Stallworth MD Work Phone: [facility] 11-23-2023 08:50-0400 Systolic blood pressure 118 mm[Hg] Vesta Stallworth MD Work Phone: [facility] 10-12-2023 09:46-0400 Diastolic blood pressure 92 mm[Hg] Pacc 1 Work Phone: [facility] 10-12-2023 09:46-0400 Systolic blood pressure 140 mm[Hg] Pacc 1 Work Phone: [facility] 10-12-2023 09:15-0400 Body height 198.1 cm Pacc 1 Work Phone: [facility] 10-12-2023 09:15-0400 Body mass index (BMI) [Ratio] 27.5 kg/m2 Pacc 1 Work Phone: [facility] 10-12-2023 09:15-0400 Body temperature 97.2 [degF] Pacc 1 Work Phone: [facility] 10-12-2023 09:15-0400 Body weight 107.96 kg Pacc 1 Work Phone: [facility] 10-12-2023 09:15-0400 Heart rate 68 /min Pacc 1 Work Phone: [facility] 10-12-2023 09:15-0400 Respiratory rate 14 /min Pacc 1 Work Phone: [facility] 10-12-2023 09:15-0400 SaO2% (BldA) [Mass fraction] 97 % Pacc 1 Work Phone: [facility] 08-25-2023 09:22-0400 Body mass index (BMI) [Ratio] 27.21 kg/m2 Jasmina Rincon MD Work Phone: [facility] 08-25-2023 09:22-0400 Body weight 106.8 kg Jasmina Rincon MD Work Phone: [facility] 08-25-2023 09:22-0400 Diastolic blood pressure 72 mm[Hg] Jasmina Rincon MD Work Phone: [facility] 08-25-2023 09:22-0400 Heart rate 73 /min Jasmina Rincon MD Work Phone: [facility] 08-25-2023 09:22-0400 SaO2% (BldA) [Mass fraction] 98 % Jasmina Rincon MD Work Phone: [facility] 08-25-2023 09:22-0400 Systolic blood pressure 120 mm[Hg] Jasmina Rincon MD Work Phone: [facility] 06-21-2023 11:25-0400 Diastolic blood pressure 78 mm[Hg] Ct (I-Stat) Work Phone: [facility] 06-21-2023 11:25-0400 Heart rate 45 /min Ct (I-Stat) Work Phone: [facility] 06-21-2023 11:25-0400 Systolic blood pressure 123 mm[Hg] Ct (I-Stat) Work Phone: [facility] 06-14-2023 08:44-0400 Body height 198.1 cm Holland Mo MD Work Phone: [facility] 06-14-2023 08:44-0400 Body temperature 97.5 [degF] Holland Mo MD Work Phone: [facility] 06-14-2023 08:44-0400 Body weight 107.05 kg Holland Mo MD Work Phone: [facility] 06-14-2023 08:44-0400 Diastolic blood pressure 80 mm[Hg] Holland Mo MD Work Phone: [facility] 06-14-2023 08:44-0400 Heart rate 69 /min Holland Mo MD Work Phone: [facility] 06-14-2023 08:44-0400 SaO2% (BldA) [Mass fraction] 99 % Holland Mo MD Work Phone: [facility] 06-14-2023 08:44-0400 Systolic blood pressure 136 mm[Hg] Holland Mo MD Work Phone: [facility] 05-18-2023 08:12-0500 Body weight 107.82 kg Vesta Stallworth MD Work Phone: [facility] 05-18-2023 08:12-0500 Diastolic blood pressure 60 mm[Hg] Vesta Stallworth MD Work Phone: [facility] 05-18-2023 08:12-0500 Heart rate 60 /min Vesta Stallworth MD Work Phone: [facility] 05-18-2023 08:12-0500 Respiratory rate 14 /min Vesta Stallworth MD Work Phone: [facility] 05-18-2023 08:12-0500 Systolic blood pressure 120 mm[Hg] Vesta Stallworth MD Work Phone: [facility] 01-26-2023 09:31-0400 Body weight 107.05 kg Jasmina Rincon MD Work Phone: [facility] 01-26-2023 09:31-0400 Diastolic blood pressure 88 mm[Hg] Jasmina Rincon MD Work Phone: [facility] 01-26-2023 09:31-0400 Heart rate 82 /min Jasmina Rincon MD Work Phone: [facility] 01-26-2023 09:31-0400 Systolic blood pressure 128 mm[Hg] Jasmina Rincon MD Work Phone: [facility] 11-12-2022 10:10-0400 Body temperature 97 [degF] Vesta Stallworth MD Work Phone: [facility] 11-12-2022 10:10-0400 Body weight 106.59 kg Vesta Stallworth MD Work Phone: [facility] 11-12-2022 10:10-0400 Diastolic blood pressure 70 mm[Hg] Vesta Stallworth MD Work Phone: [facility] 11-12-2022 10:10-0400 Heart rate 72 /min Vesta Stallworth MD Work Phone: [facility] 11-12-2022 10:10-0400 Respiratory rate 18 /min Vesta Stallworth MD Work Phone: [facility] 11-12-2022 10:10-0400 SaO2% (BldA) [Mass fraction] 97 % Vesta Stallworth MD Work Phone: [facility] 11-12-2022 10:10-0400 Systolic blood pressure 104 mm[Hg] Vesta Stallworth MD Work Phone: [facility] 04-29-2022 09:50-0500 Body height 198.1 cm Rhoda Langley MD Work Phone: [facility] 04-29-2022 09:50-0500 Body mass index (BMI) [Ratio] 27.73 kg/m2 Rhoda Langley MD Work Phone: [facility] 04-29-2022 09:50-0500 Body weight 108.86 kg Rhoda Langley MD Work Phone: [facility] 04-29-2022 09:50-0500 Diastolic blood pressure 82 mm[Hg] Rhoda Langley MD Work Phone: [facility] 04-29-2022 09:50-0500 Heart rate 75 /min Rhoda Langley MD Work Phone: [facility] 04-29-2022 09:50-0500 Systolic blood pressure 123 mm[Hg] Rhoda Langley MD Work Phone: [facility] 03-12-2022 10:07-0500 Diastolic blood pressure 72 mm[Hg] Vesta Stallworth MD Work Phone: [facility] 03-12-2022 10:07-0500 Systolic blood pressure 116 mm[Hg] Vesta Stallworth MD Work Phone: [facility] 03-12-2022 09:42-0500 Body weight 110.22 kg Vesta Stallworth MD Work Phone: [facility] 03-12-2022 09:42-0500 Heart rate 72 /min Vesta Stallworth MD Work Phone: [facility] 03-12-2022 09:42-0500 SaO2% (BldA) [Mass fraction] 97 % Vesta Stallworth MD Work Phone: [facility] 12-29-2021 09:19-0400 Body height 198.1 cm Nile Plata PA-C Work Phone: [facility] 12-29-2021 09:19-0400 Body temperature 97 [degF] Nile Plata PA-C Work Phone: [facility] 12-29-2021 09:19-0400 Body weight 108.86 kg Nile Plata PA-C Work Phone: [facility] 12-29-2021 09:19-0400 Diastolic blood pressure 88 mm[Hg] Nile Plata PA-C Work Phone: [facility] 12-29-2021 09:19-0400 Heart rate 88 /min Nile Plata PA-C Work Phone: [facility] 12-29-2021 09:19-0400 Respiratory rate 14 /min Nile Plata PA-C Work Phone: [facility] 12-29-2021 09:19-0400 SaO2% (BldA) [Mass fraction] 97 % Nile Plata PA-C Work Phone: [facility] 12-29-2021 09:19-0400 Systolic blood pressure 116 mm[Hg] Nile Plata PA-C Work Phone: [facility] 09-22-2021 14:25-0400 Body height 198.1 cm Nile Plata PA-C Work Phone: [facility] 09-22-2021 14:25-0400 Body temperature 97.11 [degF] Nile Plata PA-C Work Phone: [facility] 09-22-2021 14:25-0400 Body weight 105.23 kg Nile Plata PA-C Work Phone: [facility] 09-22-2021 14:25-0400 Diastolic blood pressure 78 mm[Hg] Nile Plata PA-C Work Phone: [facility] 09-22-2021 14:25-0400 Heart rate 70 /min Nile Plata PA-C Work Phone: [facility] 09-22-2021 14:25-0400 Respiratory rate 16 /min Nile Plata PA-C Work Phone: [facility] 09-22-2021 14:25-0400 SaO2% (BldA) [Mass fraction] 98 % Nile Plata PA-C Work Phone: [facility] 09-22-2021 14:25-0400 Systolic blood pressure 112 mm[Hg] Nile Plata PA-C Work Phone: [facility] 09-18-2021 14:31-0400 Body height 198.1 cm Jorge Gaona MD Work Phone: [facility] 09-18-2021 14:31-0400 Body temperature 98.2 [degF] Jorge Gaona MD Work Phone: [facility] 09-18-2021 14:31-0400 Body weight 105.23 kg Jorge Gaona MD Work Phone: [facility] 09-18-2021 14:31-0400 Diastolic blood pressure 60 mm[Hg] Jorge Gaona MD Work Phone: [facility] 09-18-2021 14:31-0400 Heart rate 89 /min Jorge Gaona MD Work Phone: [facility] 09-18-2021 14:31-0400 Respiratory rate 14 /min Jorge Gaona MD Work Phone: [facility] 09-18-2021 14:31-0400 SaO2% (BldA) [Mass fraction] 96 % Jorge Gaona MD Work Phone: [facility] 09-18-2021 14:31-0400 Systolic blood pressure 136 mm[Hg] Jorge Gaona MD Work Phone: [facility] 09-17-2021 19:34-0400 Body height 198.12 cm [facility] Work Phone: 09-17-2021 19:34-0400 Body mass index (BMI) [Ratio] 28.5 kg/m2 [facility] Work Phone: 09-17-2021 19:34-0400 Body temperature 96.9 [degF] [facility] Work Phone: 09-17-2021 19:34-0400 Body weight 112.3 kg [facility] Work Phone: 09-17-2021 19:34-0400 Diastolic blood pressure 86 mm[Hg] [facility] Work Phone: 09-17-2021 19:34-0400 Heart rate 92 /min [facility] Work Phone: 09-17-2021 19:34-0400 Respiratory rate 16 /min [facility] Work Phone: 09-17-2021 19:34-0400 Systolic blood pressure 142 mm[Hg] [facility] Work Phone: 09-04-2021 08:00-0400 Body height 196.9 cm Joelle Older FRESH WORK INSPECTOR.STE[employer] BOILER FIREMAN Work Phone: [facility] 09-04-2021 08:00-0400 Body weight 106.14 kg Joelle Older FRESH WORK INSPECTOR.STE[employer] BOILER FIREMAN Work Phone: [facility] 09-04-2021 08:00-0400 Diastolic blood pressure 78 mm[Hg] Joelle Older FRESH WORK INSPECTOR.STE[employer] BOILER FIREMAN Work Phone: [facility] 09-04-2021 08:00-0400 Heart rate 56 /min Joelle Older FRESH WORK INSPECTOR.STEAM BOILER FIREMAN Work Phone: [facility] 09-04-2021 08:00-0400 Respiratory rate 14 /min Joelle Older FRESH WORK INSPECTOR.STE[employer] BOILER FIREMAN Work Phone: [facility] 09-04-2021 08:00-0400 Systolic blood pressure 114 mm[Hg] Joelle Older FRESH WORK INSPECTOR.STE[employer] BOILER FIREMAN Work Phone: [facility] NEGATED: Highlighted [id number] 12:09-0500 Body height 195.58 cm [facility] Work Phone: NEGATED: Highlighted [id number] 12:09-0500 Body height 196 cm [facility] Work Phone: NEGATED: Highlighted [id number] 12:09-0500 Body mass index (BMI) [Ratio] 28.8 kg/m2 [facility] Work Phone: NEGATED: Highlighted [id number] 12:09-0500 Body temperature 97.5 [degF] [facility] Work Phone: NEGATED: Highlighted [id number] 12:09-0500 Body temperature 97.52 [degF] [facility] Work Phone: NEGATED: Highlighted [id number] 12:09-0500 Body weight 109.77 kg [facility] Work Phone: NEGATED: Highlighted [id number] 12:09-0500 Body weight 110 kg [facility] Work Phone: Encounters Encounter Date Encounter Type Care Provider Facility Start: 09-12-2024 ambulatory Jesus Peacock Facilit y:[facility] Start: 08-16-2024 End: 08-16-[address] Jesus Peacock MD -[facility] Work Phone: Start: 08-16-2024 End: 08-16-[address] Vesta Stallworth MD Work Phone: [facility] Work Phone: Start: 07-24-2024 End: 07-24-2024 Nursing evaluation of patient and report Mi Nurse Work Phone: [facility] [place] Comment on above: Encounter for immuni zation (Primary Dx) Start: 07-24-2024 End: 07-24-2024 ambulatory VESTA D TALAMPAS Facility:[facility] Start: 07-05-2024 End: 07-05-2024 Subsequent hospital visit by physician Allie Adames DO Work Phone: [facility] Comment on above: Screening due [Z13.9 ] Start: 07-05-2024 End: 07-05-2024 ambulatory NISHA SNAY Facility:[facility] Start: 07-05-2024 End: 07-05-2024 Subsequent hospital visit by physician Anthony Martinez MD Work Phone: Ambulatory Surgery Comment on above: Screening for colon cancer [Z12.11] Start: 06-28-2024 End: 06-28-2024 Admission to same day surgery center Anthony Martinez MD Work Phone: Ambulatory Surgery Comment on above: bowel prep Start: 06-28-2024 End: 06-28-2024 E-mail encounter from caregiver Anthony Martinez MD Work Phone: Ambulatory Surgery Start: 06-19-2024 End: 06-19-2024 ambulatory VESTA Gillian TALAMPAS Facility:[facility] Start: 06-19-2024 End: 06-19-2024 Nursing evaluation of patient and report Mi Nurse Work Phone: [facility] [place] Comment on above: Encounter for immuni zation (Primary Dx) Start: 06-12-2024 End: 06-13-2024 Telephone encounter Vesta Stallworth MD Work Phone: [facility] [place] Comment on above: Orders Start: 06-05-2024 End: 06-05-2024 ambulatory VESTA D TALAMPAS Facility:[facility] Start: 06-05-2024 End: 06-05-2024 Office outpatient visit 40 minutes Vesta Stallworth MD Work Phone: [facility] [place] Comment on above: Irritable bowel synd valery with diarrhea (Primary Dx); Type 2 diabetes mellitus without complication, without long-term current use of insulin (HCC); Panic; Gilbert's syndrome; Encounter for immunization; Screening for colon cancer; History of right hip replacement; Long-term current use of proton pump inhibitor therapy Start: 05-31-2024 End: 05-31-2024 ambulatory VESTA STALLWORTH Facility:[facility] Start: 05-27-2024 End: 05-30-2024 Refill Vesta Stallworth MD Work Phone: [facility] [place] Comment on above: Refill Request Start: 05-21-2024 End: 05-22-2024 Refill Vesta Stallworth MD Work Phone: [facility] [place] Comment on above: Refill Request Start: 05-03-2024 End: 05-03-2024 ambulatory [facility] Facility:[facility] Start: 05-03-2024 End: 05-03-2024 Patient encounter procedure Rashida Jones APRN.CNP Work Phone: [place] [facility] Comment on above: Sinobronchitis (Prim alexsandra Dx) Start: 04-25-2024 End: 04-25-2024 Subsequent hospital visit by physician Taqueria [facility] [place] Work Phone: Radiology Comment on above: Acute cough [R05.1] Start: 04-25-2024 End: 04-25-2024 [facility] Facility:[facility] Start: 04-25-2024 End: 04-25-2024 Patient encounter procedure Alessandra OLMSTEAD Work Phone: [place] Comment on above: Acute cough (Primary Dx); Rib pain on right side Start: 04-10-2024 End: 04-10-2024 Refill Heather Diego PA-C Work Phone: Orthopaedics Comment on above: Refill Request Start: 03-26-2024 End: 03-30-2024 Refill Yosef Sunshine APRN.CNP Work Phone: [facility] [place] Comment on above: Refill Request Start: 02-29-2024 End: 02-29-2024 ambulatory Holland Shemarchapito Facility:[facility] Start: 02-17-2024 End: 02-17-2024 Telephone encounter Holland Mo MD Work Phone: [employer] [place] Comment on above: Orders Start: 02-17-2024 End: 02-17-2024 ambulatory HOLLAND MO Facility:[facility] Start: 02-17-2024 End: 02-17-2024 Patient encounter procedure Holland Mo MD Work Phone: Orthopaedics Comment on above: Status post total hi p resurfacing (Primary Dx); Chronic pain of right knee Start: 01-26-2024 End: 01-26-2024 Refill Heather Arturerick PA-C Work Phone: Orthopaedics Comment on above: Refill Request Start: 01-18-2024 End: 01-20-2024 Refill Vesta Stallworth MD Work Phone: [facility] [place] Comment on above: Refill Request Start: 01-17-2024 End: 01-17-2024 ambulatory HEATHER ARTURERICK Facility:[facility] Start: 01-17-2024 End: 01-17-2024 Patient encounter procedure Heather McFrederick PA-C Work Phone: Orthopaedics Comment on above: Status post total hi p resurfacing (Primary Dx) Start: 01-17-2024 End: 01-17-2024 ambulatory HOLLAND MO Facility:[facility] Start: 01-17-2024 End: 01-17-2024 Subsequent hospital visit by physician [facility] Comment on above: Acute pain of right knee [M25.561] Start: 01-10-2024 End: 01-11-2024 Telephone encounter Holland Mo MD Work Phone: [employer] [place] Comment on above: Right Hip Pain Start: 12-26-2023 End: 12-26-2023 ambulatory VESTA STALLWORTH Facility:[facility] Start: 12-26-2023 End: 12-26-2023 Patient encounter procedure Mi Taveras APRN.[employer] BOILER FIREMAN Work Phone: [place] [facility] Comment on above: Impacted cerumen of right ear (Primary Dx) Start: 12-24-2023 End: 12-26-2023 Refill Heather Diego PA-C Work Phone: Orthopaedics Comment on above: Refill Request Start: 12-12-2023 End: 12-12-2023 Refill Vesta Stallworth MD Work Phone: [facility] [place] Comment on above: Refill Request Start: 12-01-2023 End: 12-01-2023 Orders Only Holland Mo MD Work Phone: Orthopaedics Comment on above: Status post total hi p resurfacing (Primary Dx) Refill Request Primary osteoarthrit is of right hip [M16.11] S/P total hip resurf acing (Primary Dx) Start: 11-23-2023 End: 11-23-2023 ambulatory VESTA STALLWORTH Facility:[facility] Start: 11-23-2023 End: 11-23-2023 Office outpatient visit 25 minutes Vesta Stallworth MD Work Phone: [facility] [place] Comment on above: Panic (Primary Dx); Hypertension, essential; Type 2 diabetes mellitus without complication, without long-term current use of insulin (HCC); Hypertension, essential; Hypertriglyceridemia; Vitamin D deficiency; Neuropathy of foot, unspecified laterality; Cervical disc disorder with radiculopathy of cervical region; Gastro-esophageal reflux disease without esophagitis Start: 11-17-2023 Refill Heather zhang PA-C Work Phone: Orthopaedics Comment on above: Refill Request Start: 11-11-2023 Telephone encounter Holland whitmore MD Work Phone: Orthopaedics Comment on above: Patient Update Start: 11-04-2023 Refill Holland Mo MD Work Phone: Orthopaedics Comment on above: Refill Request Patient Update Start: 10-31-2023 Telephone encounter Holland whitmore MD Work Phone: Orthopaedics Comment on above: Patient Question Start: 10-25-2023 Refill Holland Mo MD Work Phone: [facility] [place] Comment on above: Refill Request Start: 10-24-2023 Telephone encounter Renetta Graham MD Work Phone: Orthopaedics Start: 10-21-2023 End: 10-21-2023 ambulatory VESTA STALLWORTH Facility:[facility] Start: 10-13-2023 Telephone encounter Sangeethahannah LAUREANO Orthopa[facility]ics Comment on above: 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 Start: 10-12-2023 End: 10-12-2023 Preprocedural examination done Pac [place] 1 Work Phone: [facility] Work Phone: Start: 10-12-2023 End: 10-12-2023 PAT Pacc [place] 1 Work Phone: Pre Anesthesia Comment on above: Pre-operative examin ation (Primary Dx); Primary osteoarthritis of right hip; Tear of right acetabular labrum, initial encounter; Coronary artery disease involving [place] coronary artery of [place] heart without angina pectoris; Hypertension, essential; Hypertriglyceridemia; Type 2 diabetes mellitus without complication, without long-term current use of insulin (HCC); Recurrent major depressive disorder, in partial remission (HCC); Social phobia; Postoperative retention of urine; Benign prostatic hyperplasia with lower urinary tract symptoms, symptom details unspecified; Elevated bilirubin; History of kidney stones; Atrial fibrillation, unspecified type (HCC) Primary osteoarthrit is of right hip [M16.11] Start: 09-15-2023 Admission to [facility] Holland Mo MD Work Phone: Orthopaedics Comment on above: Schedule Surgery ([place] rgsameera 10/20/23) Start: 09-15-2023 ambulatory Holland Mo MD Work Phone: Orthopaedics Start: 09-07-2023 Refill Vesta faustin MD Work Phone: [facility] [place] Comment on above: Refill Request Start: 08-25-2023 End: 08-25-2023 ambulatory JASMINA RINCON Facility:[facility] Start: 08-25-2023 End: 08-25-2023 Patient encounter procedure Jasmina Rincon MD Work Phone: Cardiology Comment on above: Coronary artery dise ase involving [place] coronary artery of [place] heart, unspecified whether angina present (Primary Dx) Start: 06-21-2023 End: 06-21-2023 Subsequent hospital visit by physician Emily Sevilla ([facility]) Work Phone: Radiology Comment on above: Encounter for screen ing for cardiovascular disorders [Z13.6] Start: 06-19-2023 ambulatory Ryanne Castillo RN [facility] Comment on above: Blood Management Start: 06-17-2023 Telephone encounter Holland whitmore MD Work Phone: Neurology Comment on above: Imaging Disc Start: 06-16-2023 Telephone encounter Holland whitmore MD Work Phone: [facility] [place] Comment on above: surgery planning Start: 06-14-2023 End: 06-14-2023 ambulatory ZORAN MATHEWS Facility:[facility] Start: 06-14-2023 End: 06-14-2023 Patient encounter procedure Holland Mo MD Work Phone: Orthopaedics [place] Comment on above: Primary osteoarthrit is of right hip (Primary Dx); Tear of right acetabular labrum, subsequent encounter; Anemia, unspecified type Start: 06-06-2023 Telephone encounter Jasmina rocha MD Work Phone: Cardiology Start: 05-18-2023 End: 05-18-2023 Office outpatient visit 25 minutes Vesta Stallworth MD Work Phone: [facility] [place] Comment on above: Type 2 diabetes joanna itus without complication, without long- term current use of insulin (HCC) (Primary Dx); Hypertension, essential; Panic; Vitamin D deficiency; Hypertriglyceridemia Start: 04-22-2023 End: 04-22-2023 ambulatory [facility] Work Phone: Start: 04-22-2023 End: 04-22-2023 Discharged Recurring [facility] Work Phone: Start: 02-18-2023 Refill Vesta faustin MD Work Phone: [facility] [place] Comment on above: Refill Request Rx refill issue; dis continued med Start: 01-26-2023 End: 01-26-2023 Patient encounter procedure Jasmina Rincon MD Work Phone: Cardiology Comment on above: Paroxysmal atrial fi brillation (HCC) (Primary Dx) Start: 01-17-2023 ambulatory Vesta faustin MD Work Phone: [facility] [place] Comment on above: Urine test results Start: 12-22-2022 Telephone encounter Vesta mott MD Work Phone: Internal Medicine [place] Comment on above: Forms Start: 11-12-2022 End: 11-12-2022 Patient encounter procedure Vesta Stallworth MD Work Phone: Internal Medicine [place] Comment on above: Preop exam for inter nal medicine (Primary Dx); Type 2 diabetes mellitus without complication, without long-term current use of insulin (HCC); Hypertension, essential; Panic; Benign prostatic hyperplasia, unspecified whether lower urinary tract symptoms present; Encounter for immunization Start: 11-12-2022 End: 11-12-2022 Patient encounter status Vesta Stallworth MD Work Phone: [facility] Work Phone: Start: 09-18-2022 Refill Yosef Faustin PRN.STE[employer] BO[employer]ER FIREMAN Work Phone: [facility] [place] Comment on above: Refill Request Start: 07-11-2022 Refill Tiara PIKEN.PHYSICIAN INDUSTRIAL Work Phone: [facility] [place] Comment on above: Refill Request Start: 07-08-2022 Refill Vesta faustin MD Work Phone: Internal Medicine [place] Comment on above: Refill Request Start: 05-12-2022 End: 05-12-2022 ambulatory [facility] Start: 05-12-2022 End: 05-12-2022 Patient encounter procedure Rhoda Langley MD Work Phone: [place] [facility] [place] Comment on above: Tear of right acetab ular labrum, initial encounter (Primary Dx); Primary osteoarthritis of right hip Start: 04-29-2022 Telephone encounter Beulah Aponte [facility] [place] Comment on above: PRP Paid Start: 04-29-2022 End: 04-29-2022 ambulatory [facility] Start: 04-29-2022 End: 04-29-2022 Office outpatient new 45 minutes Rhoda Langley MD Work Phone: [facility] [place] Comment on above: Right hip pain (Prim alexsandra Dx); Tear of right acetabular labrum, initial encounter; Primary osteoarthritis of right hip Start: 04-20-2022 Telephone encounter Rhoda mai MD Work Phone: [facility] [place] Comment on above: Appointment Request Start: 03-12-2022 End: 03-12-2022 Office outpatient visit 25 minutes Vesta Stallworth MD Work Phone: [facility] [place] Comment on above: Type 2 diabetes joanna itus without complication, without long- term current use of insulin (HCC) (Primary Dx); Hypertension, essential; Vitamin D deficiency; Panic; Encounter for immunization; Hypertriglyceridemia Start: 02-05-2022 Telephone encounter Vesta mott MD Work Phone: [facility] [place] Comment on above: Faxed to Yulia ceja Start: 02-04-2022 Telephone encounter Vesta mott MD Work Phone: [facility] [place] Comment on above: Results Start: 01-25-2022 Refill Vesta faustin MD Work Phone: [facility] [place] Comment on above: Refill Request Start: 12-29-2021 End: 12-29-2021 Patient encounter procedure Nile Plata PA-C Work Phone: Urology Comment on above: BPH with urinary obs truction (Primary Dx); Acute retention of urine Start: 11-30-2021 Refill Vesta faustin MD Work Phone: [facility] [place] Comment on above: Refill Request Start: 09-22-2021 End: 09-22-2021 Patient encounter procedure Nile Plata PA-C Work Phone: Urology Comment on above: Acute retention of u rine (Primary Dx); BPH with urinary obstruction Start: 09-18-2021 End: 09-18-2021 Patient encounter procedure Jorge Gaona MD Work Phone: [facility] [place] Comment on above: Acute retention of u rine (Primary Dx); S/P hip arthroscopy Start: 09-18-2021 Telephone encounter Vesta mott MD Work Phone: [address] [place] [address] Comment on above: Urology/avendano Start: 09-17-2021 End: 09-17-2021 Emergency department patient visit [facility] Start: 09-04-2021 End: 09-04-2021 Patient encounter procedure Joelle Older FRESH WORK INSPECTOR.STEAM BOILER FIREMAN Work Phone: [facility] [place] Comment on above: Preop exam for inter nal medicine (Primary Dx); Type 2 diabetes mellitus without complication, without long-term current use of insulin (HCC); Hypertension, essential; Hypertriglyceridemia; Recurrent major depressive disorder, in partial remission (HCC) Start: 09-04-2021 End: 09-04-2021 Patient encounter status Joelle Older FRESH WORK INSPECTOR.STEAM BOILER FIREMAN Work Phone: [facility] [place] Start: 08-04-2021 Telephone encounter Joelle Older FRESH WORK INSPECTOR.STEAM BOILER FIREMAN Work Phone: [facility] [place] Comment on above: pre-op clearance Start: 06-21-2021 Refill Vesta faustin MD Work Phone: [facility] [place] Comment on above: Refill Request Start: 09-11-2020 End: 09-11-2020 Subsequent hospital visit by physician [facility] Sakshi Work Phone: Radiology Comment on above: Pain [R52] Procedures Date Procedure Procedure Detail Performing Clinician Start: 07-05-2024 Gluc bld gluc mntr d ev cleared fda spec home use Nisha Snay FRESH WORK INSPECTOR.BAR MANAGER Start: 07-05-2024 Colonoscopy flx dx w /collj spec when pfrmd Allie C Finelli DO Work Phone: Start: 07-05-2024 Gluc bld gluc mntr d ev cleared fda spec home use Nisha Snay FRESH WORK INSPECTOR.BAR MANAGER Start: 07-05-2024 Colonoscopy flx dx w /collj spec when pfrmd Vesta Stallworth MD Work Phone: Start: 07-05-2024 Colonoscopy Anthony urbina MD Work Phone: Start: 06-05-2024 PFIZER-BIONTECH COVI D-19 VACCINE AGE 12+ YR (COMIRNATY) Vesta Stallworth MD Work Phone: Start: 04-25-2024 Radiologic exam ches t 2 views Krislyn P Kaitlyn PA Work Phone: Start: 01-17-2024 Radiologic exam knee complete 4/more views Holland Mo MD Work Phone: Start: 12-01-2023 Radex hip unilateral with pelvis 2-3 views Holland Mo MD Work Phone: Start: 10-12-2023 Antibody screen [facility] Comment on above: Order Comment: Speci men Type: BLOOD SPECIMENOrdering Facility: [facility] Address: [address] [place] [address] Performed By: #### T [id number] ####CC MAIN BLOOD BANKCLIA [id number] [place] [address] [place] Start: 06-21-2023 Cta hrt cornry art/b ypass grfts contrst 3d post Jasmina Rincon MD Work Phone: Start: 06-14-2023 Iadna s aureus ampli fied probe tq Heather Alfa PA-C Work Phone: Start: 01-26-2023 Ecg routine ecg w/le ast 12 lds i&r only Jasmina Rincon MD Work Phone: Start: 03-12-2022 INFLUENZA VACCINE QUADRIVALENT 6 MO - 64 YRS IM Vesta Stallworth MD Work Phone: Start: 12-29-2021 Urnls dip stick/tabl et rgnt auto w/o microscopy Nile Plata PA-C Work Phone: Start: 05-26-2021 End: 05-26-2021 BP scrn no perf at interval Zoran Mathews MD Work Phone: Start: 05-26-2021 End: 05-26-2021 Calc BMI out nrm sue nof/u Zoran Mathews MD Work Phone: Start: 05-26-2021 End: 05-26-2021 Crutch substitute Zoran Mathews MD Work Phone: Start: 05-26-2021 End: 05-26-2021 CRUTCHES - ADULT ([facility]) Zoran Mathews MD Work Phone: Start: 05-26-2021 End: 05-26-2021 Current tobacco non-user cad cap copd pv dm Zoran Mathews MD Work Phone: Start: 05-26-2021 End: 05-26-2021 Docrev cur meds by elig clin Zoran Mathews MD Work Phone: Start: 05-26-2021 End: 05-26-2021 Pain doc pos and plan Zoran Mathews MD Work Phone: Start: 05-26-2021 End: 05-26-2021 Patient encounter procedure Zoran Mathews MD Work Phone: Start: 05-26-2021 End: 05-26-2021 [facility] COMBO - HIP (BREG) Zoran Mathews MD Work Phone: Start: 09-11-2020 Radex hip unilateral with pelvis 2-3 views Ryanne Sinclair MD Work Phone: NEGATED: Highlighted rowStart: 05-26-2021 End: 05-26-2021 Documentation of current medications [facility] Plan of Treatment Date Care Activity Detail Author Start: 2029 Zoster Vaccines (1 of 2) Zoster Vaccines (1 of 2) [facility] Start: 07-05-2025 Screening for malignant neoplasm of colon [facility] Start: 06-19-2025 End: 06-19-2025 Patient encounter procedure 06/19/2025 8:00 AM EDT Office Visit [facility] [place] [address] [place], [place] [id number] Vesta Stallworth MD [address] [place], [place] [id number] Annual/6 month f/u [facility] [place] Comment on above: Annual/6 month f/u Start: 06-05-2025 Annual PCP Team Chronic Disease Visit Annual PCP Team Chronic Disease Visit [facility] Start: 06-05-2025 BP Controlled (<130/80) BP Controlled (<130/80) [facility] Start: 06-05-2025 Diabetic foot examination Diabetic Foot Exam [facility] Start: 06-05-2025 Hepatitis B Vaccine (1 of 3 - 19+ 3-dose series) Hepatitis B Vaccine (1 of 3 - 19+ 3-dose series) [facility] Comment on above: Postponed from 1998 (Declined at t his time) Start: 05-31-2025 Hepatitis B surface antibody level LDL Cholesterol [facility] Start: 05-03-2025 BP Controlled (<130/80) BP Controlled (<130/80) [facility] Start: 04-25-2025 BP Controlled (<130/80) BP Controlled (<130/80) [facility] Start: 02-16-2025 End: 03-18-2025 XR Pelvis and Hip - right AP and Lateral frog XR HIP GENERAL 3V PELV/AP/LAT RIGHT Radiology Routine Status post total hip resurfacing Expected: 02/16/2025, Expires: 03/18/2025 [facility] Comment on above: Expected: 02/16/2025, Expires: Start: 12-25-2024 BP Controlled (<130/80) BP Controlled (<130/80) [facility] Start: 12-20-2024 Hepatitis B Vaccine (3 of 3 - 19+ 3-dose series) Hepatitis B Vaccine (3 of 3 - 19+ 3-dose series) [facility] Start: 12-04-2024 End: 12-04-2024 Patient encounter procedure [facility] [place] Comment on above: 6 month follow up 6 month follow up/Delfino Gale #3 Start: 12-02-2024 Hepb vaccine adult 3 dose schedule for im use HEP B VACCINE, 3-DOSE, AGE 20+ YR (ENGERIX-B, RECOMBIVAX HB) Immunization/Injection Routine Encounter for immunization Expected: 12/02/2024 [facility] Comment on above: Expected: 12/02/2024 Start: 11-28-2024 Hemoglobin A1c measurement HbA1C [facility] Start: 11-22-2024 Annual PCP Team Chronic Disease Visit Annual PCP Team Chronic Disease Visit [facility] Start: 11-18-2024 DTaP/Tdap/Td Vaccines (2 - Td or Tdap) DTaP/Tdap/Td Vaccines (2 - Td or Tdap) [facility] Start: 11-18-2024 Urine microalbumin profile [facility] Start: 10-17-2024 End: 10-17-2024 Patient encounter procedure Radiology Comment on above: XR HIP GENERAL 3V PELV/AP/LAT RIGHT RT HIP 8 MONTH FOLLO W UP Start: 10-01-2024 Influenza vaccination Influenza Vaccine (#1) [facility] Comment on above: Postponed from 12/04/2023 (Declined at t his time) Start: 09-06-2024 Glaucoma screening Dilated Retinal Exam [facility] Start: 08-24-2024 BP Controlled (<130/80) BP Controlled (<130/80) [facility] Start: 07-24-2024 End: 07-24-2024 Nursing evaluation of patient and report 07/24/2024 8:00 AM EDT Nurse Visit [facility] [address] [place] [address] Nurse, Christina [address] [place], [place] [phone] Hep B #2 [facility] [place] Comment on above: Hep B #2 Start: 07-17-2024 Hepatitis B Vaccine (2 of 3 - 19+ 3-dose series) Hepatitis B Vaccine (2 of 3 - 19+ 3-dose series) [facility] Start: 07-06-2024 Hepb vaccine adult 3 dose schedule for im use HEP B VACCINE, 3-DOSE, AGE 20+ YR (ENGERIX-B, RECOMBIVAX HB) Immunization/Injection Routine Encounter for immunization Expected: 07/06/2024 [facility] Work Phone: Comment on above: Expected: 07/06/2024 Start: 07-05-2024 End: 07-05-2024 Patient encounter procedure 07/05/2024 9:00 AM EDT Appointment Ambulatory Surgery [address] [place] [address] Anthony Martinez MD [address] [place] [address] Screening for colon cancer [Z12.11] Ambulatory Surgery Comment on above: Screening for colon cancer [Z12.11] Start: 06-19-2024 End: 06-19-2024 Nursing evaluation of patient and report 06/19/2024 8:00 AM EDT Nurse Visit [facility] [address] [place], [place] [phone] Nurse, Christina [address] [place] [address] Hep B #1 [facility] [place] Comment on above: Hep B #1 Start: 06-15-2024 Hepatitis B screening Urine Albumin:Creatinine Ratio [facility] Start: 06-15-2024 Hepatitis B surface antibody level LDL Cholesterol [facility] Start: 06-05-2024 End: 06-05-2024 Patient encounter procedure 06/05/2024 8:00 AM EST Office Visit [facility] [place] [address] [place] [address] Vesta Stallworth MD [address] [place] [address] 6 month follow up [facility] [place] Comment on above: 6 month follow up Start: 05-31-2024 End: 05-31-2024 ambulatory 05/31/2024 7:15 AM EST Results Only [place] [facility] Draw Station [address] [place] [address] [place] [facility] Station Start: 05-18-2024 Annual PCP Team Chronic Disease Visit Annual PCP Team Chronic Disease Visit [facility] Start: 05-18-2024 BP Controlled (<130/80) BP Controlled (<130/80) [facility] in Start: 05-18-2024 Hepatitis B Vaccine (1 of 3 - 19+ 3-dose series) Hepatitis B Vaccine (1 of 3 - 19+ 3-dose series) [facility] Comment on above: Postponed from 1998 (Declined at t his time) Start: 05-18-2024 Hepatitis B Vaccine (1 of 3 - 3-dose series) Hepatitis B Vaccine (1 of 3 - 3-dose series) [facility] Comment on above: Postponed from 1979 (Declined at t his time) Start: 2024 Screening for malignant neoplasm of colon [facility] Start: 02-17-2024 End: 02-17-2024 Patient encounter procedure 02/17/2024 8:00 AM EST Office Visit Orthopaedics [address] [address] Holland Mo MD [address] [place] [address] 10 WEEK FOLLOW UP RT HIP Orthopaedics Comment on above: 10 WEEK FOLLOW UP RT HIP Start: 01-17-2024 End: 01-17-2024 Patient encounter procedure 01/17/2024 2:40 PM EDT Office Visit Orthopaedics [address] [address] Heather Diego PA-C [address] [address] right hip/right knee follow up Orthopaedics Comment on above: right hip/right knee follow up Start: 01-17-2024 End: 01-17-2024 Patient encounter procedure 01/17/2024 1:30 PM EDT Appointment Radiology [address] [address] Acute pain of right knee [M25.561] Radiology Comment on above: Acute pain of right knee [M25.561] Start: 01-01-2024 Annual PCP Team Chronic Disease Visit Annual PCP Team Chronic Disease Visit [facility] Start: 12-17-2023 Hemoglobin A1c measurement HbA1C [facility] Start: 12-04-2023 Covid-19 Vaccine () Covid-19 Vaccine () [facility] Start: 12-04-2023 Influenza vaccination [facility] Start: 12-01-2023 End: 12-01-2023 Nursing evaluation of patient and report 12/01/2023 2:00 PM EDT Nurse Visit Orthopaedics [address] [address] Marya Wild, DOLORES [address] [address] post op DOS 10/19 Orthopaedics Comment on above: post op DOS 10/19 Start: 11-23-2023 End: 11-23-2023 Patient encounter procedure 11/23/2023 8:40 AM EDT Office Visit [facility] [place] [address] [place] [address] Vesta Stallworth MD [address] [place] [address] 6 month follow up [facility] [place] Comment on above: 6 month follow up Start: 11-13-2023 3 comp foot exam completed DIABETIC FOOT EXAM [facility] Start: 11-13-2023 ANNUAL PCP TEAM CHRONIC DISEASE VISIT ANNUAL PCP TEAM CHRONIC DISEASE VISIT [facility] Start: 11-13-2023 BP CONTROLLED (<130/80) BP CONTROLLED (<130/80) [facility] Start: 11-13-2023 Diabetic foot examination Diabetic Foot Exam [facility] Start: 11-11-2023 Hepatitis B surface antibody level LDL CHOLESTEROL [facility] Start: 10-20-2023 End: 01-19-2024 CONFIRM BLOOD TYPE CONFIRM BLOOD TYPE Blood Bank Routine Primary osteoarthritis of right hip Tear of right acetabular labrum, initial encounter Expected: 10/20/2023, Expires: 01/19/2024 [facility] Comment on above: Expected: 10/20/2023, Expires: Start: 10-20-2023 End: 01-19-2024 TYPE AND SCREEN,30 DAY TYPE AND SCREEN,30 DAY Blood Bank Routine Primary osteoarthritis of right hip Tear of right acetabular labrum, initial encounter Expected: 10/20/2023, Expires: 01/19/2024 [facility] Work Phone: Comment on above: Expected: 10/20/2023, Expires: Start: 10-20-2023 End: 10-20-2023 Admission to same day surgery center 10/20/2023 7:45 AM EDT - 10/20/2023 11:45 AM EDT Surgery Admitting [address] [place] [address] Holland Mo MD [address] [place] [address] ARTHROPLASTY HIP Admitting Comment on above: ARTHROPLASTY HIP Start: 10-20-2023 End: 10-20-2023 Arthrp acetblr/prox fem prostc agrft/algrft ARTHROPLASTY HIP Primary osteoarthritis of right hip Tear of right acetabular labrum, initial encounter 10/20/2023 7:45 AM EDT [facility] Start: 10-20-2023 Subsequent hospital visit by physician Admitting Comment on above: Primary osteoarthritis of right hip [M16 .11] Start: 10-07-2023 End: 10-07-2023 Anesthesia consultation 10/07/2023 1:40 PM EDT PAT Pre Anesthesia [address] [place] [address] 1, Pacc [place] [address] [facility] [place] [address] pre op DOS 10/19 Pre Anesthesia Comment on above: pre op DOS 10/19 Start: 10-07-2023 End: 10-07-2023 Patient encounter procedure 10/07/2023 1:00 PM EDT Appointment Radiology [address] [place] [address] pre op DOS 10/19 Radiology Comment on above: pre op DOS 10/19 Start: 10-02-2023 [facility]enza [facility] Comment on above: Postponed from 12/03/2022 (Declined at t his time) Start: 08-03-2023 Glaucoma screening Dilated Retinal Exam [facility] Start: 08-03-2023 Hepatitis C antibody, confirmatory test DILATED RETINAL EXAM [facility] Start: 06-14-2023 End: 09-13-2023 Albumin [Mass/volume] in Serum or Plasma ALBUMIN BLD Lab Routine Primary osteoarthritis of right hip Tear of right acetabular labrum, subsequent encounter Expected: 06/14/2023, Expires: 09/13/2023 [facility] Work Phone: Comment on above: Expected: 06/14/2023, Expires: Start: 06-14-2023 End: 09-13-2023 Basic metabolic 2000 panel - Serum or Plasma BASIC METABOLIC PNL Lab Routine Primary osteoarthritis of right hip Tear of right acetabular labrum, subsequent encounter Expected: 06/14/2023, Expires: 09/13/2023 [facility] Work Phone: Comment on above: Expected: 06/14/2023, Expires: 4 Start: 06-14-2023 End: 09-13-2023 CBC W Auto Differential panel - Blood CBC + DIFF Lab Routine Primary osteoarthritis of right hip Tear of right acetabular labrum, subsequent encounter Anemia, unspecified type Expected: 06/14/2023, Expires: 09/13/2023 [facility] Work Phone: Comment on above: Expected: 06/14/2023, Expires: 4 Start: 06-14-2023 End: 09-13-2023 Ferritin [Mass/volume] in Serum or Plasma FERRITIN BLD Lab Routine Primary osteoarthritis of right hip Tear of right acetabular labrum, subsequent encounter Anemia, unspecified type Expected: 06/14/2023, Expires: 09/13/2023 [facility] Work Phone: Comment on above: Expected: 06/14/2023, Expires: Start: 06-14-2023 End: 09-13-2023 Hemoglobin A1c in Blood HGB A1C Lab Routine Primary osteoarthritis of right hip Tear of right acetabular labrum, subsequent encounter Expected: 06/14/2023, Expires: 09/13/2023 [facility] Work Phone: Comment on above: Expected: 06/14/2023, Expires: Start: 06-14-2023 End: 09-13-2023 Iron and Iron binding capacity panel - Serum or Plasma IRON + TIBC Lab Routine Primary osteoarthritis of right hip Tear of right acetabular labrum, subsequent encounter Anemia, unspecified type Expected: 06/14/2023, Expires: 09/13/2023 [facility] Work Phone: Comment on above: Expected: 06/14/2023, Expires: 4 Start: 06-06-2023 End: 09-05-2023 CREATININE BLD CREATININE BLD Lab Routine Encounter for screening for cardiovascular disorders Expected: 06/06/2023, Expires: 09/05/2023 [facility] Work Phone: Comment on above: Expected: 06/06/2023, Expires: 4 Start: 05-13-2023 Hemoglobin A1c measurement HbA1C [facility] Start: 05-13-2023 Hemoglobin A1c/Hemoglobin.total in Blood HBA1C [facility] Start: 03-12-2023 ANNUAL PCP TEAM CHRONIC DISEASE VISIT ANNUAL PCP TEAM CHRONIC DISEASE VISIT [facility] Start: 03-12-2023 BP CONTROLLED (<130/80) BP CONTROLLED (<130/80) [facility] in Start: 03-12-2023 HEPATITIS B (1 of 3 - 3-dose series) HEPATITIS B (1 of 3 - 3-dose series) [facility] Comment on above: Postponed from 1979 (Declined at t his time) Start: 03-12-2023 Hepatitis B Vaccine (1 of 3 - 3-dose series) Hepatitis B Vaccine (1 of 3 - 3-dose series) [facility] Comment on above: Postponed from 1979 (Declined at t his time) Start: 02-04-2023 Hepatitis B surface antibody level LDL CHOLESTEROL [facility] Start: 01-26-2023 End: 04-27-2023 Thyrotropin [Units/volume] in Serum or Plasma TSH BLD Lab Routine Expected: 01/26/2023, Expires: 04/27/2023 [facility] Work Phone: Comment on above: Expected: 01/26/2023, Expires: Start: 12-03-2022 Influenza vaccination [facility] Start: 11-12-2022 End: 01-12-2023 ALBUMIN/CREAT RATIO RND UR ALBUMIN/CREAT RATIO RND UR Lab Routine Type 2 diabetes mellitus without complication, without long-term current use of insulin (HCC) Expected: 11/12/2022, Expires: 01/12/2023 [facility] Work Phone: Comment on above: Expected: 11/12/2022, Expires: Start: 09-22-2022 BP CONTROLLED (<130/80) BP CONTROLLED (<130/80) [facility] Start: 09-18-2022 ANNUAL PCP TEAM CHRONIC DISEASE VISIT ANNUAL PCP TEAM CHRONIC DISEASE VISIT [facility] Start: 09-10-2022 End: 11-10-2022 25-hydroxyvitamin D3 [Mass/volume] in Serum or Plasma VITAMIN D 25 HYDROXY Lab Routine Vitamin D deficiency Expected: 09/10/2022 (Approximate), Expires: 11/10/2022 [facility] Work Phone: Comment on above: Expected: 09/10/2022 (Approximate), Expi res: 11/10/2022 Start: 09-10-2022 End: 11-10-2022 CBC panel - Blood by Automated count CBC Lab Routine Hypertension, essential Expected: 09/10/2022 (Approximate), Expires: 11/10/2022 [facility] Work Phone: Comment on above: Expected: 09/10/2022 (Approximate), Expi res: 11/10/2022 Start: 09-10-2022 End: 11-10-2022 Comprehensive metabolic 2000 panel - Serum or Plasma COMP METABOLIC PANEL Lab Routine Type 2 diabetes mellitus without complication, without long-term current use of insulin (HCC) Hypertension, essential Expected: 09/10/2022 (Approximate), Expires: 11/10/2022 [facility] Work Phone: Comment on above: Expected: 09/10/2022 (Approximate), Expi res: 11/10/2022 Start: 09-10-2022 End: 11-10-2022 Hemoglobin A1c in Blood HGB A1C Lab Routine Type 2 diabetes mellitus without complication, without long-term current use of insulin (HCC) Expected: 09/10/2022 (Approximate), Expires: 11/10/2022 [facility] Work Phone: Comment on above: Expected: 09/10/2022 (Approximate), Expi res: 11/10/2022 Start: 09-10-2022 End: 11-10-2022 Lipid 1996 panel - Serum or Plasma LIPID PANEL BASIC Lab Routine Hypertriglyceridemia Expected: 09/10/2022 (Approximate), Expires: 11/10/2022 [facility] Work Phone: Comment on above: Expected: 09/10/2022 (Approximate), Expi res: 11/10/2022 Start: 09-04-2022 3 comp foot exam completed DIABETIC FOOT EXAM [facility] Start: 09-04-2022 ANNUAL PCP TEAM CHRONIC DISEASE VISIT ANNUAL PCP TEAM CHRONIC DISEASE VISIT [facility] Start: 09-04-2022 BP CONTROLLED (<130/80) BP CONTROLLED (<130/80) [facility] Start: 08-04-2022 Hemoglobin A1c/Hemoglobin.total in Blood HBA1C [facility] Start: 05-12-2022 End: 05-12-2022 Patient encounter procedure 05/12/2022 Office Visit Sports Medicine Rhoda Langley MD [address] [facility] [address] [place] [address] [facility] [place] Start: 04-29-2022 End: 04-29-2022 Patient encounter procedure 04/29/2022 Office Visit Sports Medicine Rhoda Langley MD [address] [facility] [address] [place] [address] [facility] [place] Start: 03-13-2022 ANNUAL PCP TEAM CHRONIC DISEASE VISIT ANNUAL PCP TEAM CHRONIC DISEASE VISIT [facility] Start: 03-13-2022 BP CONTROLLED (<130/80) BP CONTROLLED (<130/80) [facility] Start: 03-13-2022 PNEUMOCOCCAL (2 - PCV) PNEUMOCOCCAL (2 - PCV) [facility] Start: 03-12-2022 End: 05-12-2022 ALBUMIN/CREAT RATIO RND UR ALBUMIN/CREAT RATIO RND UR Lab Routine Type 2 diabetes mellitus without complication, without long-term current use of insulin (HCC) Expected: 03/12/2022, Expires: 05/12/2022 [facility] Work Phone: Comment on above: Expected: 03/12/2022, Expires: Start: 02-14-2022 Hemoglobin A1c/Hemoglobin.total in Blood HBA1C [facility] Start: 12-03-2021 Influenza vaccination INFLUENZA (#1) [facility] [facility] Start: 09-04-2021 End: 11-04-2021 ALBUMIN/CREAT RATIO RND UR ALBUMIN/CREAT RATIO RND UR Lab Routine Type 2 diabetes mellitus without complication, without long-term current use of insulin (HCC) Expected: 09/04/2021, Expires: 11/04/2021 [facility] Work Phone: Comment on above: Expected: 09/04/2021, Expires: 2 Start: 09-04-2021 End: 11-04-2021 LIPID PANEL BASIC LIPID PANEL BASIC Lab Routine Hypertriglyceridemia Expected: 09/04/2021, Expires: 11/04/2021 [facility] Work Phone: Comment on above: Expected: 09/04/2021, Expires: Start: 08-29-2021 COVID-19 VACCINE (5 - Booster for Pfizer series) COVID-19 VACCINE (5 - Booster for Pfizer series) [facility] Start: 07-10-2021 3 comp foot exam completed DIABETIC FOOT EXAM [facility] Start: 07-10-2021 BP CONTROLLED (<130/80) BP CONTROLLED (<130/80) [facility] Start: 07-02-2021 Hepatitis B screening URINE ALBUMIN:CREATININE RATIO [facility] Start: 07-02-2021 Hepatitis B surface antibody level LDL CHOLESTEROL [facility] Start: 05-26-2021 End: 05-26-2021 Patient encounter procedure Appointment [facility] Work Phone: Start: 01-01-2021 Hemoglobin A1c/Hemoglobin.total in Blood HBA1C [facility] Start: 03-17-2019 Hepatitis C antibody, confirmatory test DILATED RETINAL EXAM [facility] Start: 1998 HEPATITIS B (1 of 3 - Risk 3-dose series) HEPATITIS B (1 of 3 - Risk 3-dose series) [facility] Start: 1998 Hepatitis B Vaccine (1 of 3 - 19+ 3-dose series) Hepatitis B Vaccine (1 of 3 - 19+ 3-dose series) [facility] Start: 1998 Urine screening for protein Diabetes: Urine Protein Screening [facility] Start: 1997 Hepatitis C screening Hepatitis C Screening [facility] Start: 1989 Diabetic foot examination Diabetes: Foot Exam [facility] Start: 1989 Glaucoma screening Diabetes: Retinopathy Screening [facility] Start: 1989 Preventive dental service Diabetes: Dental Exam [facility] Start: 1980 MMR Vaccines (1 of 1 - Standard series) MMR Vaccines (1 of 1 - Standard series) [facility] Start: 1979 Hemoglobin A1c measurement Diabetes: Hemoglobin A1C [facility] Start: 1979 HEPATITIS B (1 of 3 - 3-dose series) HEPATITIS B (1 of 3 - 3-dose series) [facility] Start: 1979 Hepatitis B Vaccines (1 of 3 - 3-dose series) Hepatitis B Vaccines (1 of 3 - 3-dose series) [facility] Start: 1979 HIV screening HIV Screening [facility] Start: 1979 Lipid panel Lipid Panel [facility] End: 05-17-2024 25-hydroxyvitamin D3 [Mass/volume] in Serum or Plasma VITAMIN D 25 HYDROXY Lab Routine Vitamin D deficiency Every 6 months for 60 Occurrences starting 05/18/2023 until 05/17/2024, 1 completed [facility] Work Phone: Comment on above: Every 6 months for 60 Occurrences starti ng 05/18/2023 until 05/17/2024, 1 completed End: 11-22-2024 25-hydroxyvitamin D3 [Mass/volume] in Serum or Plasma VITAMIN D 25 HYDROXY Lab Routine Vitamin D deficiency Every 4 months for 60 Occurrences starting 11/23/2023 until 11/22/2024 [facility] Comment on above: Every 4 months for 60 Occurrences starti ng 11/23/2023 until 11/22/2024 Arthrp acetblr/prox fem prostc agrft/algrft ARTHROPLASTY HIP Primary osteoarthritis of right hip Tear of right acetabular labrum, initial encounter [facility] End: 05-17-2024 CBC panel - Blood by Automated count CBC Lab Routine Hypertension, essential Every 6 months for 60 Occurrences starting 05/18/2023 until 05/17/2024 [facility] Work Phone: Comment on above: Every 6 months for 60 Occurrences starti ng 05/18/2023 until 05/17/2024 End: 11-22-2024 CBC panel - Blood by Automated count COMPLETE BLOOD COUNT Lab Routine Hypertension, essential Every 4 months for 60 Occurrences starting 11/23/2023 until 11/22/2024 [facility] Comment on above: Every 4 months for 60 Occurrences starti ng 11/23/2023 until 11/22/2024 End: 05-17-2024 Comprehensive metabolic 2000 panel - Serum or Plasma COMP METABOLIC PANEL Lab Routine Type 2 diabetes mellitus without complication, without long-term current use of insulin (HCC) Hypertension, essential Every 6 months for 60 Occurrences starting 05/18/2023 until 05/17/2024, 1 completed [facility] Work Phone: Comment on above: Every 6 months for 60 Occurrences starti ng 05/18/2023 until 05/17/2024, 1 completed End: 11-22-2024 Comprehensive metabolic 2000 panel - Serum or Plasma COMPREHENSIVE METABOLIC PANEL Lab Routine Type 2 diabetes mellitus without complication, without long-term current use of insulin (HCC) Hypertension, essential Every 4 months for 60 Occurrences starting 11/23/2023 until 11/22/2024 [facility] Work Phone: Comment on above: Every 4 months for 60 Occurrences starti ng 11/23/2023 until 11/22/2024 End: 07-05-2024 CTA Heart and Coronary arteries W contrast IV CTA CORONARY W IVCON Radiology Routine Encounter for screening for cardiovascular disorders 1 Occurrences starting 06/06/2023 until 07/05/2024 [facility] Work Phone: Comment on above: 1 Occurrences starting 06/06/2023 until 07/05/2024 ECG COMPLETE ECG COMPLETE ECG 01/26/2023 9:27 AM EDT [facility] End: 09-14-2024 ECG COMPLETE ECG COMPLETE ECG Routine Primary osteoarthritis of right hip Tear of right acetabular labrum, initial encounter 1 Occurrences starting 09/15/2023 until 09/14/2024 [facility] Comment on above: 1 Occurrences starting 09/15/2023 until 09/14/2024 End: 01-27-2024 Echocardiography ECHO Cardiology Routine 1 Occurrences starting 01/26/2023 until 01/27/2024 [facility] Work Phone: Comment on above: 1 Occurrences starting 01/26/2023 until 01/27/2024 H&P for surgery H&P FOR SURGERY Procedures Routine Primary osteoarthritis of right hip Tear of right acetabular labrum, initial encounter Ordered: 09/15/2023 [facility] Comment on above: Ordered: 09/15/2023 End: 05-17-2024 Hemoglobin A1c in Blood HGB A1C Lab Routine Type 2 diabetes mellitus without complication, without long-term current use of insulin (HCC) Every 6 months for 60 Occurrences starting 05/18/2023 until 05/17/2024, 1 completed [facility] Work Phone: Comment on above: Every 6 months for 60 Occurrences starti ng 05/18/2023 until 05/17/2024, 1 completed End: 11-22-2024 Hemoglobin A1c in Blood HEMOGLOBIN A1C Lab Routine Type 2 diabetes mellitus without complication, without long-term current use of insulin (HCC) Every 4 months for 60 Occurrences starting 11/23/2023 until 11/22/2024 [facility] Comment on above: Every 4 months for 60 Occurrences starti ng 11/23/2023 until 11/22/2024 Hepb vaccine adult 3 dose schedule for im use HEP B VACCINE, 3-DOSE, AGE 20+ YR (ENGERIX-B, RECOMBIVAX HB) Immunization/Injection Routine Need for vaccination Ordered: 06/13/2024 [facility] Work Phone: Comment on above: Ordered: 06/13/2024 End: 05-17-2024 Lipid 1996 panel - Serum or Plasma LIPID PANEL BASIC Lab Routine Hypertriglyceridemia Every 6 months for 60 Occurrences starting 05/18/2023 until 05/17/2024, 1 completed [facility] Work Phone: Comment on above: Every 6 months for 60 Occurrences starti ng 05/18/2023 until 05/17/2024, 1 completed End: 11-22-2024 Lipid 1996 panel - Serum or Plasma LIPID PANEL BASIC Lab Routine Hypertriglyceridemia Every 4 months for 60 Occurrences starting 11/23/2023 until 11/22/2024 [facility] Comment on above: Every 4 months for 60 Occurrences starti ng 11/23/2023 until 11/22/2024 OUTSIDE VENDOR CARDI AC OUTPATIENT EXTENDED RHYTHM RECORDING (WITHOUT TELEMETRY) OUTSIDE VENDOR CARDIAC OUTPATIENT EXTENDED RHYTHM RECORDING (WITHOUT TELEMETRY) Holter Routine Ordered: 01/26/2023 [facility] Work Phone: Comment on above: Ordered: 01/26/2023 Patient Education ED Urinary Retention, M syed [facility] Work Phone: Patient referral [facility] Work Phone: POST VOID RESIDUAL POST VOID RES IDUAL Procedures Routine Acute retention of urine Ordered: 12/29/2021 [facility] Work Phone: Comment on above: Ordered: 12/29/2021 REFER FOR ADMIT INTERVIEW REFER FOR ADMIT INTERVIEW Procedures Routine Primary osteoarthritis of right hip Tear of right acetabular labrum, initial encounter Ordered: 09/15/2023 [facility] Comment on above: Ordered: 09/15/2023 Removal impacted cer umen irrigation/lvg unilat AMBULATORY EAR LAVAGE/IRRIGATION Procedures Routine Impacted cerumen of right ear Ordered: 12/26/2023 [facility] Work Phone: Comment on above: Ordered: 12/26/2023 End: 06-05-2025 Screening colonoscopy COLONOSCOPY SCREENING Endoscopy Routine Screening for colon cancer 1 Occurrences starting 06/05/2024 until 06/05/2025 [facility] Comment on above: 1 Occurrences starting 06/05/2024 until 06/05/2025 Tissue Pathology bio psy report [facility] Work Phone: Comment on above: Release Upon Ordering for 1 Occurrences starting 07/05/2024, 1 completed End: 07-13-2024 XR Hip - right AP and Lateral XR HIP 2V AP/LAT RIGHT (AK,FL,ME,UN) Radiology Routine Primary osteoarthritis of right hip 1 Occurrences starting 06/14/2023 until 07/13/2024 [facility] Work Phone: Comment on above: 1 Occurrences starting 06/14/2023 until 07/13/2024 XR Hip - right AP an d Lateral XR HIP 2V AP/LAT RIGHT (AK,FL,ME,UN) Radiology Routine Primary osteoarthritis of right hip 10/12/2023 4:28 PM EDT [facility] End: 02-08-2025 XR Knee - right 4 Views XR KNEE GENERAL 4V AP BOTH/PA BOTH/LAT/MERC RIGHT Radiology Routine Acute pain of right knee 1 Occurrences starting 01/10/2024 until 02/08/2025 [facility] Work Phone: Comment on above: 1 Occurrences starting 01/10/2024 until 02/08/2025 End: 07-13-2024 XR Pelvis and Hip - right AP and Lateral frog XR HIP GENERAL 3V PELV/AP/LAT RIGHT Radiology Routine Primary osteoarthritis of right hip 1 Occurrences starting 06/14/2023 until 07/13/2024 [facility] Work Phone: Comment on above: 1 Occurrences starting 06/14/2023 until 07/13/2024 End: 10-14-2024 XR Pelvis and Hip - right AP and Lateral frog XR HIP GENERAL 3V PELV/AP/LAT RIGHT Radiology Routine Primary osteoarthritis of right hip Tear of right acetabular labrum, initial encounter 1 Occurrences starting 09/15/2023 until 10/14/2024 [facility] Comment on above: 1 Occurrences starting 09/15/2023 until 10/14/2024 XR Pelvis and Hip - right AP and Lateral frog XR HIP GENERAL 3V PELV/AP/LAT RIGHT Radiology Routine Primary osteoarthritis of right hip 10/12/2023 11:21 AM EDT [facility] Work Phone: End: 03-18-2025 XR Pelvis and Hip - right AP and Lateral frog XR HIP GENERAL 3V PELV/AP/LAT RIGHT Radiology Routine Status post total hip resurfacing 1 Occurrences starting 02/17/2024 until 03/18/2025 [facility] Work Phone: Comment on above: 1 Occurrences starting 02/17/2024 until 03/18/2025 [facility] Immunizations Immunization Date Immunization Notes Care Provider [facility] 07-24-2024 hepatitis B vaccine, adult dosage In Nurse Work Phone: [facility] 06-19-2024 hepatitis B vaccine, adult dosage In Nurse Work Phone: [facility] 06-05-2024 COVID-19 vaccine, ag e 12+ yr ([employer] [facility]) Vesta Stallworth MD Work Phone: [facility] 11-12-2022 pneumococcal (PCV20) vaccine, 20 valent (PREVNAR 20) Vesta Stallworth MD Work Phone: [facility] 11-12-2022 pneumococcal Conjuga te, unspecified formulation Vesta Stallworth MD Work Phone: [facility] Work Phone: 03-12-2022 influenza, injectabl e, quadrivalent, contains preservative Vesta Stallworth MD Work Phone: [facility] 03-12-2022 influenza virus vacc ine, unspecified formulation Vesta Stallworth MD Work Phone: [facility] 03-13-2021 influenza, injectabl e, quadrivalent, contains preservative Vesta Stallworth MD Work Phone: [facility] 03-13-2021 pneumococcal polysaccharide vaccine, 23 valent Vesta Stallworth MD Work Phone: [facility] 07-05-2020 COVID-19 vaccine, ag e 12+ yr (PFIZER-BIONTECH - PURPLE TOP) Vesta Stallworth MD Work Phone: [facility] Work Phone: 06-14-2020 COVID-19 vaccine, ag e 12+ yr (PFIZER-BIONTECH - PURPLE TOP) Vesta Stallworth MD Work Phone: [facility] Work Phone: 11-18-2014 tetanus toxoid, redu christianne diphtheria toxoid, and acellular pertussis vaccine, adsorbed Vesta Stallworth MD Work Phone: [facility] 04-19-2012 influenza virus vacc ine, unspecified formulation Vesta Stallworth MD Work Phone: [facility] Work Phone: Payers Date Payer Category Payer Self-pay [id number] 2022 Private Health Insurance O S [id number] 2022 Unknown [id number] 2020 Unknown [employer] [place] [employer] [id number] 2020-Present [phone] [address] [place] [address] PPO [id number] 2018 Unknown [id number] 2012 Unknown [facility] [id number] Unknown [id number] Unknown [id number] Unknown [id number] Social History Date Type Detail Facility Start: 05-26-2021 End: 05-26-2021 Assertion Unknown if ever smoked [facility] Work Phone: Start: 10-09-2017 End: 03-12-2022 Tobacco smoking status NHIS Ex-smoker [facility] Start: 07-10-2020 End: 03-13-2021 Alcohol intake Current drinker of alcohol (finding) [facility] Start: 02-08-2018 History SDOH Alcohol Comment 3-4 times a week [facility] Start: 1980 Sex Assigned At Not on file [facility] Start: 08-12-2020 End: 05-12-2022 Exposure to SARS-CoV-2 (event) Not sure [facility] Work Phone: Start: 1980 Sex Assigned At Male [facility] History of tobacco use Current smoker [facility] Start: 10-09-2017 End: 03-12-2022 Tobacco use and exposure Smokeless tobacco non-user [facility] Start: 03-11-2022 History SDOH Alcohol Frequency 3 [facility] Start: 03-11-2022 History SDOH Alcohol Std Drinks 1 [facility] Start: 03-11-2022 History SDOH Alcohol Binge 2 [facility] Start: 03-11-2022 History SDOH Physical Activity DPW 6 [facility] Start: 03-11-2022 History SDOH Physical Activity MPS 4 [facility] Start: 03-11-2022 End: 11-12-2022 History of Social function [facility] Start: 03-11-2022 End: 11-12-2022 Social connection and isolation panel [facility] Do you belong to any clubs or organizations such as voodoo groups, unions, fraternal or athletic groups, or school groups? No [facility] Are you now , , , , never or living with a partner? [facility] How often to you hav e a drink containing alcohol? 2-4 times a month [facility] How many standard dr inks containing alcohol do you have on a typical day? 1 or 2 [facility] How often do you hav e 6 or more drinks on 1 occasion? Less than monthly [facility] How hard is it for y ou to pay for the very basics like food, housing, medical care, and heating Somewhat hard [facility] Adult Depression Screening Assessment 2 [facility] Do you feel stress - tense, restless, nervous, or anxious, or unable to sleep at night because your mind is troubled all the time - these days [OSQ] Rather much [facility] (I/We) worried wheth er (my/our) food would run out before (I/we) got money to buy more. Never true [facility] Start: 10-12-2023 End: 07-05-2024 Alcohol intake Ex-drinker (finding) [facility] Start: 10-12-2023 Alcohol Comment 1-2 times a week [facility] How often do you hav e 6 or more drinks on 1 occasion? Never [facility] Do you feel stress - tense, restless, nervous, or anxious, or unable to sleep at night because your mind is troubled all the time - these days [OSQ] To some extent [facility] Medical Equipment Procedure Code Equipment Code Equipment Origin al Text Equipment Identifier Dates [id number], [id number] Start: 03-07-2018 Comment on above: Test blood sugar(s) 1 times daily and as needed. Dx: Type 2 DM - Uncontrolled E11.9 Insulin: No Test blood sugar(s) 1 times daily. Dx: Type 2 DM - Uncontrolled E11.65 Insulin: No Cement Simplex P Tobramycin Bone Full Dose Radiopaque Preblend Sterile - [id number] Start: 10-20-2023 Cup Bhr 58mm 52m m Acetabular Hybrid Fixation Hip - [id number] Start: 10-20-2023 Head Bhr 52mm Femoral Resurfacing - [id number] Start: 10-20-2023 Functional Status Date Assessment Result Facility 10-21-2023 Are you deaf, or do you have serious difficulty hearing No 10/21/2023 5:21 PM Kenzie Magana RN No [facility] 10-21-2023 Are you blind, or do you have serious difficulty seeing, even when wearing glasses No 10/21/2023 5:21 PM Kenzie Magana RN No [facility] 10-21-2023 Do you have serious difficulty walking or climbing stairs No 10/21/2023 5:21 PM Kenzie Magana RN No [facility] 10-21-2023 Do you have difficul ty dressing or bathing No 10/21/2023 5:21 PM Kenzie Magana, DOLORES No [facility] 10-21-2023 Because of a physica l, mental, or emotional condition, do you have difficulty doing errands alone such as visiting a physician's office or shopping No 10/21/2023 5:21 PM Kenzie Magana RN No [facility] Mental Status Date Assessment Result Facility 10-21-2023 Because of a physica l, mental, or emotional condition, do you have serious difficulty concentrating, remembering, or making decisions Yes 10/21/2023 5:21 PM Kenzie Magana RN Yes [facility] Clinical Notes 07-17-2015 to 07-24-2024 MYRNA HOLDEN - 07/24/2024 7:55 AM Jose Luis Thomas RN - 07/05/2024 3:29 PM Jose Luis Thomas RN - 07/05/2024 3:29 PM Allie Kovacs DO - 07/05/2024 1:30 PM EDTPatient Instructions Note Date & Type Note Facility 07-24-2024 Note HNO ID: [id number] Author: ?, ?, ? Service: ? Author Type: LICENSED NURSE Type: Progress Notes Filed: 07/24/2024 07:56 Note Text: Patient presents for Hepatitis B vaccine. Denies any problems at this time. Tolerated injection well. Myrna Holden LPN [facility] 07-24-2024 History of Present illness Narrative Patient presents for Hepatitis B vaccine. Denies any problems at this time. Tolerated injection well. Myrna Holden LPN documented in this encounter [facility] 07-05-2024 Nurse Note Pt expressed concern regarding urinary retention with history after anesthesia. Pt attempted to void without success. Pt bladder scanned for [address] Adames at bedside with patient. Educated pt he is likely dehydrated from the bowel prep. Instructed patient if he has not voided by 7-8 pm or is having extreme discomfort, present to ED. Pt and expressed understanding and discharged without difficulty. [facility] 07-05-2024 Nurse Note Pt expressed concern regarding urinary retention with history after anesthesia. Pt attempted to void without success. Pt bladder scanned for [address] Adames at bedside with patient. Educated pt he is likely dehydrated from the bowel prep. Instructed patient if he has not voided by 7-8 pm or is having extreme discomfort, present to ED. Pt and expressed understanding and discharged without difficulty. documented in this encounter [facility] 07-05-2024 Attending History and physical note UPDATED HISTORY AND PHYSICAL EXAMINATION SERVICE DATE: 07/05/2024 SERVICE TIME: 1:20 PM Participation of a fellow, resident, medical student, or advanced practice provider student in performing the sensitive examination was discussed with the patient or authorized union representative. The patient or authorized union representative has agreed to proceed with the sensitive examination. PHYSICAL EXAM MUST BE COMPLETED ON ADMISSION The History and Physical (completed in the past 30 days) has been reviewed and the patient has been examined. The contents accurately reflect the patient's condition with the following additions or revisions since the H&P was completed. Examination indicates no changes. This H&P can be found in the attached. SIGNATURE: Allie Adames DO PATIENT NAME: Gala Yun DATE: July 05, 2024 TIME: 1:20 PM Source Note - Anthony Martinez MD - 07/05/2024 9:00 AM EDT SUBJECTIVE: Gala Yun is a 44 year old year old gentleman here today for 6 month follow up appointment for review of medical conditions. Gala Yun is a 44-year-old male with a history of DM, presenting for a 6-month follow-up. Gala reports a recent increase in HbA1c to 6.6%, the highest it has been in a while. He attributes this to poor dietary choices and reduced exercise during the holidays, as well as a recent illness for which he was prescribed steroids and antibiotics. He notes the appearance of dark spots on his shins around [place], which he associates with his diabetes. He is currently exercising 5-6 days a week and aims to improve his diet to lower his HbA1c to around 5.5%. His previous HbA1c was 5.8%. Gala expresses concern about the efficacy of his medications, noting that he takes all his medications in the morning with breakfast and has observed what appears to be whole pills in his stool. He questions whether he is receiving the full benefit of his medications, particularly metformin and Prilosec. He also inquires about the significance of his LDL cholesterol levels, which are below the threshold, and whether this could indicate another problem. Gala has a history of hip surgery and reports significant improvement in mobility and pain since the surgery. He is now able to perform squats and walk without pain, activities he has not been able to do for 5 years. He also reports a history of neuropathy in his left foot, characterized by tingling and burning sensations, and is scheduled to see a neurologist. Gala has a history of prostatitis and is currently on alfuzosin. He inquires about the need for a colonoscopy now that he is 44 years old and expresses concern about the procedure. He also asks about the need for a measles booster given recent outbreaks. Gala reports a history of flu-like symptoms, including high fever, body aches, and fatigue, but denies COVID-19. He is unsure if he received a flu shot in 2023. He also inquires about the need for a hepatitis B vaccination. PAST MEDICAL HISTORY PAST MEDICAL HISTORY Diagnosis Date Atypical chest pain 07/17/2015 Diabetes (HCC) Elevated bilirubin ?chronic versus intermittent mild elevation sicne childhood--benign condition Hyperlipidemia Kidney stone on left side had to have blasted and stented (treated Dr. Mittal) Vitamin D deficiency CURRENT MEDICATIONS Current Outpatient Medications Medication Sig celecoxib (CELEBREX) 200 mg capsule take 1 capsule by mouth once daily with food (Patient not taking: Reported on 04/25/2024) omeprazole (PRILOSEC) 20 mg capsule Take 1 capsule by mouth daily before breakfast. 1/2 hr before meal. metFORMIN ER (GLUCOPHAGE XR) 500 mg 24 hr tablet Take 4 tablets by mouth daily with breakfast. ALPRAZolam (XANAX) 1 mg tablet Take 1 tablet by mouth once daily as needed for anxiety for up to 30 days. albuterol HFA (PROVENTIL HFA, VENTOLIN HFA) 90 mcg/actuation inhaler Inhale 2 Puffs as instructed every 4 hours as needed for wheezing/shortness of breath. baclofen 10 mg tablet take 1 tablet by mouth three times a day if needed muscle spasm (Patient not taking: Reported on 05/03/2024) alfuzosin SR (UROXATRAL) 10 mg 24 hr tablet Take 1 tablet by mouth daily at bedtime. lisinopril (ZESTRIL) 10 mg tablet Take 1 tablet by mouth once daily. atorvastatin (LIPITOR) 20 mg tablet Take 1 tablet by mouth once daily. aspirin, enteric coated (ASPIRIN, ENTERIC COATED) 81 mg EC tablet Take 1 tablet by mouth two times a day. celecoxib (CELEBREX) 100 mg capsule Take 1 capsule by mouth two times a day. Cholecalciferol, Vitamin D3, (VITAMIN D-3) 2,000 unit cap Take 1 capsule by mouth once daily. blood sugar diagnostic (BLOOD GLUCOSE TEST) test strip Test blood sugar(s) 1 times daily and as needed. Dx: Type 2 DM - Uncontrolled E11.9 Insulin: No Lancets lancets Test blood sugar(s) 1 times daily. Dx: Type 2 DM - Uncontrolled E11.65 Insulin: No No current facility-administered medications for this visit. Review of Systems Objective BP 118/70 Pulse 98 Wt 108.7 kg (239 lb 10.2 oz) SpO2 98% BMI 27.70 kg/m Last 5 Encounter Wt Readings: Date: Wt: 06/05/2024 108.7 kg (239 lb 10.2 oz) 05/03/2024 109.1 kg (240 lb 8.4 oz) 04/25/2024 110.9 kg (244 lb 7.8 oz) 01/17/2024 108.9 kg (240 lb) 12/26/2023 109.4 kg (241 lb 2.9 oz) No waist measurement recorded Estimated body mass index is 27.7 kg/m as calculated from the following: Height as of 10/20/23: 198.1 cm (6' 5.99). Weight as of this encounter: 108.7 kg (239 lb 10.2 oz). Last 5 Encounter BP Readings: Date: BP: 06/05/2024 118/70 05/03/2024 122/76 04/25/2024 122/72 12/26/2023 122/72 11/23/2023 118/82 Physical Exam Vitals reviewed. Constitutional: Appearance: Normal appearance. Eyes: Conjunctiva/sclera: Conjunctivae normal. Cardiovascular: Rate and Rhythm: Normal rate and regular rhythm. Pulses: Dorsalis pedis pulses are 2+ on the right side and 2+ on the left side. Posterior tibial pulses are 2+ on the right side and 2+ on the left side. Heart sounds: Normal heart sounds. Pulmonary: Effort: Pulmonary effort is normal. Breath sounds: Normal breath sounds. Musculoskeletal: Right lower leg: No edema. Left lower leg: No edema. Feet: Right foot: Protective Sensation: 10 sites tested. 10 sites sensed. Skin integrity: Skin integrity normal. Left foot: Protective Sensation: 10 sites tested. 10 sites sensed. Skin integrity: Skin integrity normal. Skin: General: Skin is warm and dry. Neurological: General: No focal deficit present. Mental Status: He is alert and oriented to person, place, and time. Psychiatric: Mood and Affect: Mood normal. Behavior: Behavior normal. Thought Content: Thought content normal. Judgment: Judgment normal. Latest Ref Rng 11/10/2022 03/02/2023 06/16/2023 05/31/2024 Protein, Total 6.3 - 8.0 g/dL 6.5 6.7 7.0 Albumin 3.9 - 4.9 g/dL 4.7 4.7 4.7 Calcium 8.5 - 10.2 mg/dL 9.6 9.2 9.2 Bilirubin, Total 0.2 - 1.3 mg/dL 2.6 (H) 2.9 (H) 4.0 (H) Alkaline Phosphatase 38 - 113 U/L 56 61 63 AST 14 - 40 U/L 22 25 20 ALT 10 - 54 U/L 24 23 26 Glucose 74 - 99 mg/dL 146 (H) 124 (H) 160 (H) BUN 9 - 24 mg/dL 13 16 13 Creatinine 0.73 - 1.22 mg/dL 0.93 0.82 0.77 Sodium 136 - 144 mmol/L 137 137 137 Potassium 3.7 - 5.1 mmol/L 4.1 4.1 3.7 Chloride 98 - 107 mmol/L 100 100 100 CO2 22 - 30 mmol/L 24 27 23 Anion Gap 8 - 15 mmol/L 13 10 14 eGFR >=60 mL/min/1.73m 104 111 113 WBC 3.70 - 11.00 k/uL 5.17 5.07 RBC 4.20 - 6.00 m/uL 5.25 5.46 Hemoglobin 13.0 - 17.0 g/dL 16.2 16.6 Hematocrit 39.0 - 51.0 % 46.7 46.7 MCV 80.0 - 100.0 fL 89.0 85.5 MCH 26.0 - 34.0 pg 30.9 30.4 MCHC 30.5 - 36.0 g/dL 34.7 35.5 RDW-CV 11.5 - 15.0 % 13.1 13.5 Platelet Count 150 - 400 k/uL 155 171 MPV 9.0 - 12.7 fL 9.6 9.3 Absolute nRBC <0.01 k/uL <0.01 <0.01 Cholesterol, Total <200 mg/dL 120 95 98 Triglyceride <150 mg/dL 234 (H) 96 90 HDL Cholesterol >39 mg/dL 34 (L) 40 40 Non HDL Cholesterol <130 mg/dL 86 55 58 Fasting Time hrs 12 12 11 VLDL Cholesterol <30 mg/dL 47 (H) 19 18 TC:HDL Ratio <5.10 3.53 2.38 2.45 LDL Cholesterol <100 mg/dL 39 36 40 LDL:HDL Ratio <2.54 1.15 0.90 1.00 Creatinine, Ur Random (UCRR) 20.0 - 300.0 mg/dL 149.5 Albumin, Urine Random mg/L 19.7 Albumin/Creat Ratio <30 mg/g 13 Hemoglobin A1C 4.3 - 5.6 % 5.9 (H) 5.8 (H) 6.6 (H) Estimated Average Glucose mg/dL 123 120 143 Vitamin D 25 Hydroxy 31.0 - 80.0 ng/mL 49.0 68.8 56.0 TSH 0.270 - 4.200 mIU/L 1.200 Legend: (H) High (L) Low Assessment and Plan # Type 2 diabetes mellitus without complication, without long-term current use of insulin (HCC) (E11.9) - Recent A1c elevated at 6.6%, previously 5.8%. - Discussed impact of recent illness and steroid use on blood glucose levels. - Reinforced importance of diet and exercise in glycemic control. - Continue Metformin XR; discussed concerns about medication absorption. - Educated on potential need for insulin if A1c remains uncontrolled. - Performed diabetic foot exam; normal findings. - Follow-up in 6 months. # Panic (F41.0) Doing well with as needed alprazolam. Refill given. Has needed more lately but not daily. Will set refill for end of this month. He will call when needs next refill. # Irritable bowel syndrome with diarrhea (K58.0) - Reports observing what appears to be whole pills in stool. - Discussed potential impact of IBS on medication absorption. - Advised to monitor symptoms and report any changes. # Gilbert's syndrome (E80.4) - Elevated bilirubin levels noted, consistent with Gilbert's syndrome with some increase from baselin due to recent illness. - No additional treatment required. - Continue to monitor for routine labs # Encounter for immunization (Z23) - Administered COVID-19 booster vaccine. - Discussed Hepatitis B vaccination; patient to start 3-dose series. # Screening for colon cancer (Z12.11) - Discussed colonoscopy screening; patient agrees to proceed. - Ordered colonoscopy with Miralax prep. - Provided instructions for preparation and scheduling. # History of right hip replacement (Z96.641) - Recovery progressing well; improved mobility and ability to exercise. - No current issues reported. # Long-term current use of proton pump inhibitor therapy (Z79.899) - Taking Prilosec with other medications in the morning. - Advised to take Prilosec separately before meals for optimal efficacy. - Refill scheduled for June 21. I spent a total of 51 minutes on the date of the service which included preparing to see the patient, [id number] patient care, completing clinical documentation, obtaining and/or reviewing separately obtained history, performing a medically appropriate examination, counseling and educating the patient/family/caregiver, ordering medications, tests, or procedures, independently interpreting results (not separately reported), and communicating results to the patient/family/caregiver. Vesta Stallworth MD UPDATED HISTORY AND PHYSICAL EXAMINATION SERVICE DATE: 07/05/2024 SERVICE TIME: 8:58 AM PHYSICAL EXAM MUST BE COMPLETED ON ADMISSION The History and Physical (completed in the past 30 days) has been reviewed and the patient has been examined. The contents accurately reflect the patient's condition with the following additions or revisions since the H&P was completed. Examination indicates no changes. This H&P can be found in the attached. SIGNATURE: Anthony Martinez III, MD PATIENT NAME: Gala Yun DATE: July 05, 2024 TIME: 8:57 AM [facility] 07-05-2024 History and physical note UPDATED HISTORY AND PHYSICAL EXAMINATION SERVICE DATE: 07/05/2024 SERVICE TIME: 1:20 PM Participation of a fellow, resident, medical student, or advanced practice provider student in performing the sensitive examination was discussed with the patient or authorized union representative. The patient or authorized union representative has agreed to proceed with the sensitive examination. PHYSICAL EXAM MUST BE COMPLETED ON ADMISSION The History and Physical (completed in the past 30 days) has been reviewed and the patient has been examined. The contents accurately reflect the patient's condition with the following additions or revisions since the H&P was completed. Examination indicates no changes. This H&P can be found in the attached. SIGNATURE: Allie Adames DO PATIENT NAME: Gala Yun DATE: July 05, 2024 TIME: 1:20 PM Source Note - Anthony Martinez MD - 07/05/2024 9:00 AM EDT SUBJECTIVE: Gala Yun is a 44 year old year old gentleman here today for 6 month follow up appointment for review of medical conditions. Gala Yun is a 44-year-old male with a history of DM, presenting for a 6-month follow-up. Gala reports a recent increase in HbA1c to 6.6%, the highest it has been in a while. He attributes this to poor dietary choices and reduced exercise during the holidays, as well as a recent illness for which he was prescribed steroids and antibiotics. He notes the appearance of dark spots on his shins around [place], which he associates with his diabetes. He is currently exercising 5-6 days a week and aims to improve his diet to lower his HbA1c to around 5.5%. His previous HbA1c was 5.8%. Gala expresses concern about the efficacy of his medications, noting that he takes all his medications in the morning with breakfast and has observed what appears to be whole pills in his stool. He questions whether he is receiving the full benefit of his medications, particularly metformin and Prilosec. He also inquires about the significance of his LDL cholesterol levels, which are below the threshold, and whether this could indicate another problem. Gala has a history of hip surgery and reports significant improvement in mobility and pain since the surgery. He is now able to perform squats and walk without pain, activities he has not been able to do for 5 years. He also reports a history of neuropathy in his left foot, characterized by tingling and burning sensations, and is scheduled to see a neurologist. Gala has a history of prostatitis and is currently on alfuzosin. He inquires about the need for a colonoscopy now that he is 44 years old and expresses concern about the procedure. He also asks about the need for a measles booster given recent outbreaks. Gala reports a history of flu-like symptoms, including high fever, body aches, and fatigue, but denies COVID-19. He is unsure if he received a flu shot in 2023. He also inquires about the need for a hepatitis B vaccination. PAST MEDICAL HISTORY PAST MEDICAL HISTORY Diagnosis Date Atypical chest pain 07/17/2015 Diabetes (HCC) Elevated bilirubin ?chronic versus intermittent mild elevation sicne childhood--benign condition Hyperlipidemia Kidney stone on left side had to have blasted and stented (treated Dr. Mittal) Vitamin D deficiency CURRENT MEDICATIONS Current Outpatient Medications Medication Sig celecoxib (CELEBREX) 200 mg capsule take 1 capsule by mouth once daily with food (Patient not taking: Reported on 04/25/2024) omeprazole (PRILOSEC) 20 mg capsule Take 1 capsule by mouth daily before breakfast. 1/2 hr before meal. metFORMIN ER (GLUCOPHAGE XR) 500 mg 24 hr tablet Take 4 tablets by mouth daily with breakfast. ALPRAZolam (XANAX) 1 mg tablet Take 1 tablet by mouth once daily as needed for anxiety for up to 30 days. albuterol HFA (PROVENTIL HFA, VENTOLIN HFA) 90 mcg/actuation inhaler Inhale 2 Puffs as instructed every 4 hours as needed for wheezing/shortness of breath. baclofen 10 mg tablet take 1 tablet by mouth three times a day if needed muscle spasm (Patient not taking: Reported on 05/03/2024) alfuzosin SR (UROXATRAL) 10 mg 24 hr tablet Take 1 tablet by mouth daily at bedtime. lisinopril (ZESTRIL) 10 mg tablet Take 1 tablet by mouth once daily. atorvastatin (LIPITOR) 20 mg tablet Take 1 tablet by mouth once daily. aspirin, enteric coated (ASPIRIN, ENTERIC COATED) 81 mg EC tablet Take 1 tablet by mouth two times a day. celecoxib (CELEBREX) 100 mg capsule Take 1 capsule by mouth two times a day. Cholecalciferol, Vitamin D3, (VITAMIN D-3) 2,000 unit cap Take 1 capsule by mouth once daily. blood sugar diagnostic (BLOOD GLUCOSE TEST) test strip Test blood sugar(s) 1 times daily and as needed. Dx: Type 2 DM - Uncontrolled E11.9 Insulin: No Lancets lancets Test blood sugar(s) 1 times daily. Dx: Type 2 DM - Uncontrolled E11.65 Insulin: No No current facility-administered medications for this visit. Review of Systems Objective BP 118/70 Pulse 98 Wt 108.7 kg (239 lb 10.2 oz) SpO2 98% BMI 27.70 kg/m Last 5 Encounter Wt Readings: Date: Wt: 06/05/2024 108.7 kg (239 lb 10.2 oz) 05/03/2024 109.1 kg (240 lb 8.4 oz) 04/25/2024 110.9 kg (244 lb 7.8 oz) 01/17/2024 108.9 kg (240 lb) 12/26/2023 109.4 kg (241 lb 2.9 oz) No waist measurement recorded Estimated body mass index is 27.7 kg/m as calculated from the following: Height as of 10/20/23: 198.1 cm (6' 5.99). Weight as of this encounter: 108.7 kg (239 lb 10.2 oz). Last 5 Encounter BP Readings: Date: BP: 06/05/2024 118/70 05/03/2024 122/76 04/25/2024 122/72 12/26/2023 122/72 11/23/2023 118/82 Physical Exam Vitals reviewed. Constitutional: Appearance: Normal appearance. Eyes: Conjunctiva/sclera: Conjunctivae normal. Cardiovascular: Rate and Rhythm: Normal rate and regular rhythm. Pulses: Dorsalis pedis pulses are 2+ on the right side and 2+ on the left side. Posterior tibial pulses are 2+ on the right side and 2+ on the left side. Heart sounds: Normal heart sounds. Pulmonary: Effort: Pulmonary effort is normal. Breath sounds: Normal breath sounds. Musculoskeletal: Right lower leg: No edema. Left lower leg: No edema. Feet: Right foot: Protective Sensation: 10 sites tested. 10 sites sensed. Skin integrity: Skin integrity normal. Left foot: Protective Sensation: 10 sites tested. 10 sites sensed. Skin integrity: Skin integrity normal. Skin: General: Skin is warm and dry. Neurological: General: No focal deficit present. Mental Status: He is alert and oriented to person, place, and time. Psychiatric: Mood and Affect: Mood normal. Behavior: Behavior normal. Thought Content: Thought content normal. Judgment: Judgment normal. Latest Ref Rng 11/10/2022 03/02/2023 06/16/2023 05/31/2024 Protein, Total 6.3 - 8.0 g/dL 6.5 6.7 7.0 Albumin 3.9 - 4.9 g/dL 4.7 4.7 4.7 Calcium 8.5 - 10.2 mg/dL 9.6 9.2 9.2 Bilirubin, Total 0.2 - 1.3 mg/dL 2.6 (H) 2.9 (H) 4.0 (H) Alkaline Phosphatase 38 - 113 U/L 56 61 63 AST 14 - 40 U/L 22 25 20 ALT 10 - 54 U/L 24 23 26 Glucose 74 - 99 mg/dL 146 (H) 124 (H) 160 (H) BUN 9 - 24 mg/dL 13 16 13 Creatinine 0.73 - 1.22 mg/dL 0.93 0.82 0.77 Sodium 136 - 144 mmol/L 137 137 137 Potassium 3.7 - 5.1 mmol/L 4.1 4.1 3.7 Chloride 98 - 107 mmol/L 100 100 100 CO2 22 - 30 mmol/L 24 27 23 Anion Gap 8 - 15 mmol/L 13 10 14 eGFR >=60 mL/min/1.73m 104 111 113 WBC 3.70 - 11.00 k/uL 5.17 5.07 RBC 4.20 - 6.00 m/uL 5.25 5.46 Hemoglobin 13.0 - 17.0 g/dL 16.2 16.6 Hematocrit 39.0 - 51.0 % 46.7 46.7 MCV 80.0 - 100.0 fL 89.0 85.5 MCH 26.0 - 34.0 pg 30.9 30.4 MCHC 30.5 - 36.0 g/dL 34.7 35.5 RDW-CV 11.5 - 15.0 % 13.1 13.5 Platelet Count 150 - 400 k/uL 155 171 MPV 9.0 - 12.7 fL 9.6 9.3 Absolute nRBC <0.01 k/uL <0.01 <0.01 Cholesterol, Total <200 mg/dL 120 95 98 Triglyceride <150 mg/dL 234 (H) 96 90 HDL Cholesterol >39 mg/dL 34 (L) 40 40 Non HDL Cholesterol <130 mg/dL 86 55 58 Fasting Time hrs 12 12 11 VLDL Cholesterol <30 mg/dL 47 (H) 19 18 TC:HDL Ratio <5.10 3.53 2.38 2.45 LDL Cholesterol <100 mg/dL 39 36 40 LDL:HDL Ratio <2.54 1.15 0.90 1.00 Creatinine, Ur Random (UCRR) 20.0 - 300.0 mg/dL 149.5 Albumin, Urine Random mg/L 19.7 Albumin/Creat Ratio <30 mg/g 13 Hemoglobin A1C 4.3 - 5.6 % 5.9 (H) 5.8 (H) 6.6 (H) Estimated Average Glucose mg/dL 123 120 143 Vitamin D 25 Hydroxy 31.0 - 80.0 ng/mL 49.0 68.8 56.0 TSH 0.270 - 4.200 mIU/L 1.200 Legend: (H) High (L) Low Assessment and Plan # Type 2 diabetes mellitus without complication, without long-term current use of insulin (HCC) (E11.9) - Recent A1c elevated at 6.6%, previously 5.8%. - Discussed impact of recent illness and steroid use on blood glucose levels. - Reinforced importance of diet and exercise in glycemic control. - Continue Metformin XR; discussed concerns about medication absorption. - Educated on potential need for insulin if A1c remains uncontrolled. - Performed diabetic foot exam; normal findings. - Follow-up in 6 months. # Panic (F41.0) Doing well with as needed alprazolam. Refill given. Has needed more lately but not daily. Will set refill for end of this month. He will call when needs next refill. # Irritable bowel syndrome with diarrhea (K58.0) - Reports observing what appears to be whole pills in stool. - Discussed potential impact of IBS on medication absorption. - Advised to monitor symptoms and report any changes. # Gilbert's syndrome (E80.4) - Elevated bilirubin levels noted, consistent with Gilbert's syndrome with some increase from baselin due to recent illness. - No additional treatment required. - Continue to monitor for routine labs # Encounter for immunization (Z23) - Administered COVID-19 booster vaccine. - Discussed Hepatitis B vaccination; patient to start 3-dose series. # Screening for colon cancer (Z12.11) - Discussed colonoscopy screening; patient agrees to proceed. - Ordered colonoscopy with Miralax prep. - Provided instructions for preparation and scheduling. # History of right hip replacement (Z96.641) - Recovery progressing well; improved mobility and ability to exercise. - No current issues reported. # Long-term current use of proton pump inhibitor therapy (Z79.899) - Taking Prilosec with other medications in the morning. - Advised to take Prilosec separately before meals for optimal efficacy. - Refill scheduled for June 21. I spent a total of 51 minutes on the date of the service which included preparing to see the patient, [id number] patient care, completing clinical documentation, obtaining and/or reviewing separately obtained history, performing a medically appropriate examination, counseling and educating the patient/family/caregiver, ordering medications, tests, or procedures, independently interpreting results (not separately reported), and communicating results to the patient/family/caregiver. Vesta Stallworth MD UPDATED HISTORY AND PHYSICAL EXAMINATION SERVICE DATE: 07/05/2024 SERVICE TIME: 8:58 AM PHYSICAL EXAM MUST BE COMPLETED ON ADMISSION The History and Physical (completed in the past 30 days) has been reviewed and the patient has been examined. The contents accurately reflect the patient's condition with the following additions or revisions since the H&P was completed. Examination indicates no changes. This H&P can be found in the attached. SIGNATURE: Anthony Martinez III, MD PATIENT NAME: Gala Yun DATE: July 05, 2024 TIME: 8:57 AM documented in this encounter [facility] 07-05-2024 Note Formatting of this n ote might be different from the original. The patient received a copy of Colonoscopy discharge instructions that contain information for how to contact the physician who performed the procedure and when to seek medical care. [facility] 07-05-2024 Miscellaneous Notes The patient received a copy of Colonoscopy discharge instructions that contain information for how to contact the physician who performed the procedure and when to seek medical care. documented in this encounter [facility] 07-05-2024 History and physical note SUBJECTIVE: Gala Yun is a 44 year old year old gentleman here today for 6 month follow up appointment for review of medical conditions. Gala uYn is a 44-year-old male with a history of DM, presenting for a 6-month follow-up. Gala reports a recent increase in HbA1c to 6.6%, the highest it has been in a while. He attributes this to poor dietary choices and reduced exercise during the holidays, as well as a recent illness for which he was prescribed steroids and antibiotics. He notes the appearance of dark spots on his shins around [place], which he associates with his diabetes. He is currently exercising 5-6 days a week and aims to improve his diet to lower his HbA1c to around 5.5%. His previous HbA1c was 5.8%. Gala expresses concern about the efficacy of his medications, noting that he takes all his medications in the morning with breakfast and has observed what appears to be whole pills in his stool. He questions whether he is receiving the full benefit of his medications, particularly metformin and Prilosec. He also inquires about the significance of his LDL cholesterol levels, which are below the threshold, and whether this could indicate another problem. Gala has a history of hip surgery and reports significant improvement in mobility and pain since the surgery. He is now able to perform squats and walk without pain, activities he has not been able to do for 5 years. He also reports a history of neuropathy in his left foot, characterized by tingling and burning sensations, and is scheduled to see a neurologist. Gala has a history of prostatitis and is currently on alfuzosin. He inquires about the need for a colonoscopy now that he is 44 years old and expresses concern about the procedure. He also asks about the need for a measles booster given recent outbreaks. Gala reports a history of flu-like symptoms, including high fever, body aches, and fatigue, but denies COVID-19. He is unsure if he received a flu shot in 2023. He also inquires about the need for a hepatitis B vaccination. PAST MEDICAL HISTORY PAST MEDICAL HISTORY Diagnosis Date Atypical chest pain 07/17/2015 Diabetes (HCC) Elevated bilirubin ?chronic versus intermittent mild elevation sicne childhood--benign condition Hyperlipidemia Kidney stone on left side had to have blasted and stented (treated Dr. Mittal) Vitamin D deficiency CURRENT MEDICATIONS Current Outpatient Medications Medication Sig celecoxib (CELEBREX) 200 mg capsule take 1 capsule by mouth once daily with food (Patient not taking: Reported on 04/25/2024) omeprazole (PRILOSEC) 20 mg capsule Take 1 capsule by mouth daily before breakfast. 1/2 hr before meal. metFORMIN ER (GLUCOPHAGE XR) 500 mg 24 hr tablet Take 4 tablets by mouth daily with breakfast. ALPRAZolam (XANAX) 1 mg tablet Take 1 tablet by mouth once daily as needed for anxiety for up to 30 days. albuterol HFA (PROVENTIL HFA, VENTOLIN HFA) 90 mcg/actuation inhaler Inhale 2 Puffs as instructed every 4 hours as needed for wheezing/shortness of breath. baclofen 10 mg tablet take 1 tablet by mouth three times a day if needed muscle spasm (Patient not taking: Reported on 05/03/2024) alfuzosin SR (UROXATRAL) 10 mg 24 hr tablet Take 1 tablet by mouth daily at bedtime. lisinopril (ZESTRIL) 10 mg tablet Take 1 tablet by mouth once daily. atorvastatin (LIPITOR) 20 mg tablet Take 1 tablet by mouth once daily. aspirin, enteric coated (ASPIRIN, ENTERIC COATED) 81 mg EC tablet Take 1 tablet by mouth two times a day. celecoxib (CELEBREX) 100 mg capsule Take 1 capsule by mouth two times a day. Cholecalciferol, Vitamin D3, (VITAMIN D-3) 2,000 unit cap Take 1 capsule by mouth once daily. blood sugar diagnostic (BLOOD GLUCOSE TEST) test strip Test blood sugar(s) 1 times daily and as needed. Dx: Type 2 DM - Uncontrolled E11.9 Insulin: No Lancets lancets Test blood sugar(s) 1 times daily. Dx: Type 2 DM - Uncontrolled E11.65 Insulin: No No current facility-administered medications for this visit. Review of Systems Objective BP 118/70 Pulse 98 Wt 108.7 kg (239 lb 10.2 oz) SpO2 98% BMI 27.70 kg/m Last 5 Encounter Wt Readings: Date: Wt: 06/05/2024 108.7 kg (239 lb 10.2 oz) 05/03/2024 109.1 kg (240 lb 8.4 oz) 04/25/2024 110.9 kg (244 lb 7.8 oz) 01/17/2024 108.9 kg (240 lb) 12/26/2023 109.4 kg (241 lb 2.9 oz) No waist measurement recorded Estimated body mass index is 27.7 kg/m as calculated from the following: Height as of 10/20/23: 198.1 cm (6' 5.99). Weight as of this encounter: 108.7 kg (239 lb 10.2 oz). Last 5 Encounter BP Readings: Date: BP: 06/05/2024 118/70 05/03/2024 122/76 04/25/2024 122/72 12/26/2023 122/72 11/23/2023 118/82 Physical Exam Vitals reviewed. Constitutional: Appearance: Normal appearance. Eyes: Conjunctiva/sclera: Conjunctivae normal. Cardiovascular: Rate and Rhythm: Normal rate and regular rhythm. Pulses: Dorsalis pedis pulses are 2+ on the right side and 2+ on the left side. Posterior tibial pulses are 2+ on the right side and 2+ on the left side. Heart sounds: Normal heart sounds. Pulmonary: Effort: Pulmonary effort is normal. Breath sounds: Normal breath sounds. Musculoskeletal: Right lower leg: No edema. Left lower leg: No edema. Feet: Right foot: Protective Sensation: 10 sites tested. 10 sites sensed. Skin integrity: Skin integrity normal. Left foot: Protective Sensation: 10 sites tested. 10 sites sensed. Skin integrity: Skin integrity normal. Skin: General: Skin is warm and dry. Neurological: General: No focal deficit present. Mental Status: He is alert and oriented to person, place, and time. Psychiatric: Mood and Affect: Mood normal. Behavior: Behavior normal. Thought Content: Thought content normal. Judgment: Judgment normal. Latest Ref Rng 11/10/2022 03/02/2023 06/16/2023 05/31/2024 Protein, Total 6.3 - 8.0 g/dL 6.5 6.7 7.0 Albumin 3.9 - 4.9 g/dL 4.7 4.7 4.7 Calcium 8.5 - 10.2 mg/dL 9.6 9.2 9.2 Bilirubin, Total 0.2 - 1.3 mg/dL 2.6 (H) 2.9 (H) 4.0 (H) Alkaline Phosphatase 38 - 113 U/L 56 61 63 AST 14 - 40 U/L 22 25 20 ALT 10 - 54 U/L 24 23 26 Glucose 74 - 99 mg/dL 146 (H) 124 (H) 160 (H) BUN 9 - 24 mg/dL 13 16 13 Creatinine 0.73 - 1.22 mg/dL 0.93 0.82 0.77 Sodium 136 - 144 mmol/L 137 137 137 Potassium 3.7 - 5.1 mmol/L 4.1 4.1 3.7 Chloride 98 - 107 mmol/L 100 100 100 CO2 22 - 30 mmol/L 24 27 23 Anion Gap 8 - 15 mmol/L 13 10 14 eGFR >=60 mL/min/1.73m 104 111 113 WBC 3.70 - 11.00 k/uL 5.17 5.07 RBC 4.20 - 6.00 m/uL 5.25 5.46 Hemoglobin 13.0 - 17.0 g/dL 16.2 16.6 Hematocrit 39.0 - 51.0 % 46.7 46.7 MCV 80.0 - 100.0 fL 89.0 85.5 MCH 26.0 - 34.0 pg 30.9 30.4 MCHC 30.5 - 36.0 g/dL 34.7 35.5 RDW-CV 11.5 - 15.0 % 13.1 13.5 Platelet Count 150 - 400 k/uL 155 171 MPV 9.0 - 12.7 fL 9.6 9.3 Absolute nRBC <0.01 k/uL <0.01 <0.01 Cholesterol, Total <200 mg/dL 120 95 98 Triglyceride <150 mg/dL 234 (H) 96 90 HDL Cholesterol >39 mg/dL 34 (L) 40 40 Non HDL Cholesterol <130 mg/dL 86 55 58 Fasting Time hrs 12 12 11 VLDL Cholesterol <30 mg/dL 47 (H) 19 18 TC:HDL Ratio <5.10 3.53 2.38 2.45 LDL Cholesterol <100 mg/dL 39 36 40 LDL:HDL Ratio <2.54 1.15 0.90 1.00 Creatinine, Ur Random (UCRR) 20.0 - 300.0 mg/dL 149.5 Albumin, Urine Random mg/L 19.7 Albumin/Creat Ratio <30 mg/g 13 Hemoglobin A1C 4.3 - 5.6 % 5.9 (H) 5.8 (H) 6.6 (H) Estimated Average Glucose mg/dL 123 120 143 Vitamin D 25 Hydroxy 31.0 - 80.0 ng/mL 49.0 68.8 56.0 TSH 0.270 - 4.200 mIU/L 1.200 Legend: (H) High (L) Low Assessment and Plan # Type 2 diabetes mellitus without complication, without long-term current use of insulin (HCC) (E11.9) - Recent A1c elevated at 6.6%, previously 5.8%. - Discussed impact of recent illness and steroid use on blood glucose levels. - Reinforced importance of diet and exercise in glycemic control. - Continue Metformin XR; discussed concerns about medication absorption. - Educated on potential need for insulin if A1c remains uncontrolled. - Performed diabetic foot exam; normal findings. - Follow-up in 6 months. # Panic (F41.0) Doing well with as needed alprazolam. Refill given. Has needed more lately but not daily. Will set refill for end of this month. He will call when needs next refill. # Irritable bowel syndrome with diarrhea (K58.0) - Reports observing what appears to be whole pills in stool. - Discussed potential impact of IBS on medication absorption. - Advised to monitor symptoms and report any changes. # Gilbert's syndrome (E80.4) - Elevated bilirubin levels noted, consistent with Gilbert's syndrome with some increase from baselin due to recent illness. - No additional treatment required. - Continue to monitor for routine labs # Encounter for immunization (Z23) - Administered COVID-19 booster vaccine. - Discussed Hepatitis B vaccination; patient to start 3-dose series. # Screening for colon cancer (Z12.11) - Discussed colonoscopy screening; patient agrees to proceed. - Ordered colonoscopy with Miralax prep. - Provided instructions for preparation and scheduling. # History of right hip replacement (Z96.641) - Recovery progressing well; improved mobility and ability to exercise. - No current issues reported. # Long-term current use of proton pump inhibitor therapy (Z79.899) - Taking Prilosec with other medications in the morning. - Advised to take Prilosec separately before meals for optimal efficacy. - Refill scheduled for June 21. I spent a total of 51 minutes on the date of the service which included preparing to see the patient, [id number] patient care, completing clinical documentation, obtaining and/or reviewing separately obtained history, performing a medically appropriate examination, counseling and educating the patient/family/caregiver, ordering medications, tests, or procedures, independently interpreting results (not separately reported), and communicating results to the patient/family/caregiver. Vesta Stallworth MD UPDATED HISTORY AND PHYSICAL EXAMINATION SERVICE DATE: 07/05/2024 SERVICE TIME: 8:58 AM PHYSICAL EXAM MUST BE COMPLETED ON ADMISSION The History and Physical (completed in the past 30 days) has been reviewed and the patient has been examined. The contents accurately reflect the patient's condition with the following additions or revisions since the H&P was completed. Examination indicates no changes. This H&P can be found in the attached. SIGNATURE: Anthony Martinez III, MD PATIENT NAME: Gala Yun DATE: July 05, 2024 TIME: 8:57 AM [facility] 07-05-2024 History and physical note SUBJECTIVE: Gala Yun is a 44 year old year old gentleman here today for 6 month follow up appointment for review of medical conditions. Gala Yun is a 44-year-old male with a history of DM, presenting for a 6-month follow-up. Gala reports a recent increase in HbA1c to 6.6%, the highest it has been in a while. He attributes this to poor dietary choices and reduced exercise during the holidays, as well as a recent illness for which he was prescribed steroids and antibiotics. He notes the appearance of dark spots on his shins around [place], which he associates with his diabetes. He is currently exercising 5-6 days a week and aims to improve his diet to lower his HbA1c to around 5.5%. His previous HbA1c was 5.8%. Gala expresses concern about the efficacy of his medications, noting that he takes all his medications in the morning with breakfast and has observed what appears to be whole pills in his stool. He questions whether he is receiving the full benefit of his medications, particularly metformin and Prilosec. He also inquires about the significance of his LDL cholesterol levels, which are below the threshold, and whether this could indicate another problem. Gala has a history of hip surgery and reports significant improvement in mobility and pain since the surgery. He is now able to perform squats and walk without pain, activities he has not been able to do for 5 years. He also reports a history of neuropathy in his left foot, characterized by tingling and burning sensations, and is scheduled to see a neurologist. Gala has a history of prostatitis and is currently on alfuzosin. He inquires about the need for a colonoscopy now that he is 44 years old and expresses concern about the procedure. He also asks about the need for a measles booster given recent outbreaks. Gala reports a history of flu-like symptoms, including high fever, body aches, and fatigue, but denies COVID-19. He is unsure if he received a flu shot in 2023. He also inquires about the need for a hepatitis B vaccination. PAST MEDICAL HISTORY PAST MEDICAL HISTORY Diagnosis Date Atypical chest pain 07/17/2015 Diabetes (HCC) Elevated bilirubin ?chronic versus intermittent mild elevation sicne childhood--benign condition Hyperlipidemia Kidney stone on left side had to have blasted and stented (treated Dr. Mittal) Vitamin D deficiency CURRENT MEDICATIONS Current Outpatient Medications Medication Sig celecoxib (CELEBREX) 200 mg capsule take 1 capsule by mouth once daily with food (Patient not taking: Reported on 04/25/2024) omeprazole (PRILOSEC) 20 mg capsule Take 1 capsule by mouth daily before breakfast. 1/2 hr before meal. metFORMIN ER (GLUCOPHAGE XR) 500 mg 24 hr tablet Take 4 tablets by mouth daily with breakfast. ALPRAZolam (XANAX) 1 mg tablet Take 1 tablet by mouth once daily as needed for anxiety for up to 30 days. albuterol HFA (PROVENTIL HFA, VENTOLIN HFA) 90 mcg/actuation inhaler Inhale 2 Puffs as instructed every 4 hours as needed for wheezing/shortness of breath. baclofen 10 mg tablet take 1 tablet by mouth three times a day if needed muscle spasm (Patient not taking: Reported on 05/03/2024) alfuzosin SR (UROXATRAL) 10 mg 24 hr tablet Take 1 tablet by mouth daily at bedtime. lisinopril (ZESTRIL) 10 mg tablet Take 1 tablet by mouth once daily. atorvastatin (LIPITOR) 20 mg tablet Take 1 tablet by mouth once daily. aspirin, enteric coated (ASPIRIN, ENTERIC COATED) 81 mg EC tablet Take 1 tablet by mouth two times a day. celecoxib (CELEBREX) 100 mg capsule Take 1 capsule by mouth two times a day. Cholecalciferol, Vitamin D3, (VITAMIN D-3) 2,000 unit cap Take 1 capsule by mouth once daily. blood sugar diagnostic (BLOOD GLUCOSE TEST) test strip Test blood sugar(s) 1 times daily and as needed. Dx: Type 2 DM - Uncontrolled E11.9 Insulin: No Lancets lancets Test blood sugar(s) 1 times daily. Dx: Type 2 DM - Uncontrolled E11.65 Insulin: No No current facility-administered medications for this visit. Review of Systems Objective BP 118/70 Pulse 98 Wt 108.7 kg (239 lb 10.2 oz) SpO2 98% BMI 27.70 kg/m Last 5 Encounter Wt Readings: Date: Wt: 06/05/2024 108.7 kg (239 lb 10.2 oz) 05/03/2024 109.1 kg (240 lb 8.4 oz) 04/25/2024 110.9 kg (244 lb 7.8 oz) 01/17/2024 108.9 kg (240 lb) 12/26/2023 109.4 kg (241 lb 2.9 oz) No waist measurement recorded Estimated body mass index is 27.7 kg/m as calculated from the following: Height as of 10/20/23: 198.1 cm (6' 5.99). Weight as of this encounter: 108.7 kg (239 lb 10.2 oz). Last 5 Encounter BP Readings: Date: BP: 06/05/2024 118/70 05/03/2024 122/76 04/25/2024 122/72 12/26/2023 122/72 11/23/2023 118/82 Physical Exam Vitals reviewed. Constitutional: Appearance: Normal appearance. Eyes: Conjunctiva/sclera: Conjunctivae normal. Cardiovascular: Rate and Rhythm: Normal rate and regular rhythm. Pulses: Dorsalis pedis pulses are 2+ on the right side and 2+ on the left side. Posterior tibial pulses are 2+ on the right side and 2+ on the left side. Heart sounds: Normal heart sounds. Pulmonary: Effort: Pulmonary effort is normal. Breath sounds: Normal breath sounds. Musculoskeletal: Right lower leg: No edema. Left lower leg: No edema. Feet: Right foot: Protective Sensation: 10 sites tested. 10 sites sensed. Skin integrity: Skin integrity normal. Left foot: Protective Sensation: 10 sites tested. 10 sites sensed. Skin integrity: Skin integrity normal. Skin: General: Skin is warm and dry. Neurological: General: No focal deficit present. Mental Status: He is alert and oriented to person, place, and time. Psychiatric: Mood and Affect: Mood normal. Behavior: Behavior normal. Thought Content: Thought content normal. Judgment: Judgment normal. Latest Ref Rng 11/10/2022 03/02/2023 06/16/2023 05/31/2024 Protein, Total 6.3 - 8.0 g/dL 6.5 6.7 7.0 Albumin 3.9 - 4.9 g/dL 4.7 4.7 4.7 Calcium 8.5 - 10.2 mg/dL 9.6 9.2 9.2 Bilirubin, Total 0.2 - 1.3 mg/dL 2.6 (H) 2.9 (H) 4.0 (H) Alkaline Phosphatase 38 - 113 U/L 56 61 63 AST 14 - 40 U/L 22 25 20 ALT 10 - 54 U/L 24 23 26 Glucose 74 - 99 mg/dL 146 (H) 124 (H) 160 (H) BUN 9 - 24 mg/dL 13 16 13 Creatinine 0.73 - 1.22 mg/dL 0.93 0.82 0.77 Sodium 136 - 144 mmol/L 137 137 137 Potassium 3.7 - 5.1 mmol/L 4.1 4.1 3.7 Chloride 98 - 107 mmol/L 100 100 100 CO2 22 - 30 mmol/L 24 27 23 Anion Gap 8 - 15 mmol/L 13 10 14 eGFR >=60 mL/min/1.73m 104 111 113 WBC 3.70 - 11.00 k/uL 5.17 5.07 RBC 4.20 - 6.00 m/uL 5.25 5.46 Hemoglobin 13.0 - 17.0 g/dL 16.2 16.6 Hematocrit 39.0 - 51.0 % 46.7 46.7 MCV 80.0 - 100.0 fL 89.0 85.5 MCH 26.0 - 34.0 pg 30.9 30.4 MCHC 30.5 - 36.0 g/dL 34.7 35.5 RDW-CV 11.5 - 15.0 % 13.1 13.5 Platelet Count 150 - 400 k/uL 155 171 MPV 9.0 - 12.7 fL 9.6 9.3 Absolute nRBC <0.01 k/uL <0.01 <0.01 Cholesterol, Total <200 mg/dL 120 95 98 Triglyceride <150 mg/dL 234 (H) 96 90 HDL Cholesterol >39 mg/dL 34 (L) 40 40 Non HDL Cholesterol <130 mg/dL 86 55 58 Fasting Time hrs 12 12 11 VLDL Cholesterol <30 mg/dL 47 (H) 19 18 TC:HDL Ratio <5.10 3.53 2.38 2.45 LDL Cholesterol <100 mg/dL 39 36 40 LDL:HDL Ratio <2.54 1.15 0.90 1.00 Creatinine, Ur Random (UCRR) 20.0 - 300.0 mg/dL 149.5 Albumin, Urine Random mg/L 19.7 Albumin/Creat Ratio <30 mg/g 13 Hemoglobin A1C 4.3 - 5.6 % 5.9 (H) 5.8 (H) 6.6 (H) Estimated Average Glucose mg/dL 123 120 143 Vitamin D 25 Hydroxy 31.0 - 80.0 ng/mL 49.0 68.8 56.0 TSH 0.270 - 4.200 mIU/L 1.200 Legend: (H) High (L) Low Assessment and Plan # Type 2 diabetes mellitus without complication, without long-term current use of insulin (HCC) (E11.9) - Recent A1c elevated at 6.6%, previously 5.8%. - Discussed impact of recent illness and steroid use on blood glucose levels. - Reinforced importance of diet and exercise in glycemic control. - Continue Metformin XR; discussed concerns about medication absorption. - Educated on potential need for insulin if A1c remains uncontrolled. - Performed diabetic foot exam; normal findings. - Follow-up in 6 months. # Panic (F41.0) Doing well with as needed alprazolam. Refill given. Has needed more lately but not daily. Will set refill for end of this month. He will call when needs next refill. # Irritable bowel syndrome with diarrhea (K58.0) - Reports observing what appears to be whole pills in stool. - Discussed potential impact of IBS on medication absorption. - Advised to monitor symptoms and report any changes. # Gilbert's syndrome (E80.4) - Elevated bilirubin levels noted, consistent with Gilbert's syndrome with some increase from baselin due to recent illness. - No additional treatment required. - Continue to monitor for routine labs # Encounter for immunization (Z23) - Administered COVID-19 booster vaccine. - Discussed Hepatitis B vaccination; patient to start 3-dose series. # Screening for colon cancer (Z12.11) - Discussed colonoscopy screening; patient agrees to proceed. - Ordered colonoscopy with Miralax prep. - Provided instructions for preparation and scheduling. # History of right hip replacement (Z96.641) - Recovery progressing well; improved mobility and ability to exercise. - No current issues reported. # Long-term current use of proton pump inhibitor therapy (Z79.899) - Taking Prilosec with other medications in the morning. - Advised to take Prilosec separately before meals for optimal efficacy. - Refill scheduled for June 21. I spent a total of 51 minutes on the date of the service which included preparing to see the patient, [id number] patient care, completing clinical documentation, obtaining and/or reviewing separately obtained history, performing a medically appropriate examination, counseling and educating the patient/family/caregiver, ordering medications, tests, or procedures, independently interpreting results (not separately reported), and communicating results to the patient/family/caregiver. Vesta Stallworth MD UPDATED HISTORY AND PHYSICAL EXAMINATION SERVICE DATE: 07/05/2024 SERVICE TIME: 8:58 AM PHYSICAL EXAM MUST BE COMPLETED ON ADMISSION The History and Physical (completed in the past 30 days) has been reviewed and the patient has been examined. The contents accurately reflect the patient's condition with the following additions or revisions since the H&P was completed. Examination indicates no changes. This H&P can be found in the attached. SIGNATURE: Anthony Martinez III, MD PATIENT NAME: Gala Yun DATE: July 05, 2024 TIME: 8:57 AM documented in this encounter [facility] 06-19-2024 Note HNO ID: [id number] Author: ?, ?, ? Service: ? Author Type: LICENSED NURSE Type: Progress Notes Filed: 06/19/2024 08:06 Note Text: Patient presents for Hepatitis B vaccine. Denies any problems at this time. Tolerated injection well. Myrna Holden LPN [facility] 06-19-2024 History of Present illness Narrative Patient presents for Hepatitis B vaccine. Denies any problems at this time. Tolerated injection well. Myrna Holden LPN documented in this encounter [facility] 06-12-2024 Telephone encounter Note Patient scheduled for nurse visit 07/20/24 to receive Hepatitis B vaccine. Please place order at this time. Myrna Holden LPN [facility] 06-12-2024 Miscellaneous Notes Patient scheduled for nurse visit 07/20/24 to receive Hepatitis B vaccine. Please place order at this time. Myrna Holden LPN documented in this encounter [facility] 06-05-2024 Instructions Vesta Stallworth MD - 06/05/2024 8:45 AM EST Images from the original note were not included. Miralax/Dulcolax Bowel Prep For this bowel preparation, you will need to purchase the following medications at any pharmacy: Over the counter Miralax (generic name is polyethylene glycol) 8.3 oz or 238 grams Four (4) Dulcolax (generic name is Bisacodyl) tablets 3 days prior to your procedure, you need to be on a low fiber diet (Such as popcorn, beans, seeds, nuts, salad and raw vegetables, corn, fresh and dried fruit and multi-grain bread) YOU MUST BE ON CLEAR LIQUIDS FOR 2 FULL DAYS PRIOR TO YOUR COLONOSCOPY Day one which would be two days before your colonoscopy, you will need to be on clear liquids all day. You may have coffee or tea-black only (no cream), clear broths (beef, chicken or vegetable), apple juice, white grape juice, pop, Gatorade, Powerade, lemonade, Jello, popsicles, Kevin-aid, and water-But nothing red or dark purple in color and no dairy products, tomato or orange juices. Day two which would be the day before your colonoscopy continue clear liquids all day as above. And follow the instructions below: 8:00 AM - Mix the Miralax with 64 oz of Gatorade or another clear liquid of choice and place in refrigerator. Most people say the drink is better cold. 4:00 PM - Take 2 of the Dulcolax tablets with 8 oz of water. 6:00 PM - Start to drink the Miralax mixture. You must finish it by midnight. 8:00 PM - Take the other 2 Dulcolax tablets with 8 oz of water. You may continue to drink clear liquids while you are taking your prep and after you finish it as long as it is before midnight. Drink lots of fluids so you don t become dehydrated. Nothing to drink after midnight the night before the procedure unless you are instructed differently by the physician or nurses. Please remember to take your normal medications the morning of the procedure with a small sip of water especially your blood pressure medications. If you are diabetic, you need to contact your physician about how to take your diabetic medications and/or insulin during the prepping period and the day of your procedure. Any questions please call: Dr. Mckeon or Dr. Diaz or Dr. Martinez [phone] [facility] nurses [phone] documented in this encounter [facility] 06-05-2024 Note HNO ID: [id number] Author: VESTA STALLWORTH MD Service: ? Author Type: Physician Type: Progress Notes Filed: 06/05/2024 13:34 Note Text: This note was created using [employer]. Subjective Patient presents with: F/U 6 months SUBJECTIVE: Gala Yun is a 44 year old year old gentleman here today for 6 month follow up appointment for review of medical conditions. Gala Yun is a 44-year-old male with a history of DM, presenting for a 6-month follow-up. Gala reports a recent increase in HbA1c to 6.6%, the highest it has been in a while. He attributes this to poor dietary choices and reduced exercise during the holidays, as well as a recent illness for which he was prescribed steroids and antibiotics. He notes the appearance of dark spots on his shins around [place], which he associates with his diabetes. He is currently exercising 5-6 days a week and aims to improve his diet to lower his HbA1c to around 5.5%. His previous HbA1c was 5.8%. Gala expresses concern about the efficacy of his medications, noting that he takes all his medications in the morning with breakfast and has observed what appears to be whole pills in his stool. He questions whether he is receiving the full benefit of his medications, particularly metformin and Prilosec. He also inquires about the significance of his LDL cholesterol levels, which are below the threshold, and whether this could indicate another problem. Gala has a history of hip surgery and reports significant improvement in mobility and pain since the surgery. He is now able to perform squats and walk without pain, activities he has not been able to do for 5 years. He also reports a history of neuropathy in his left foot, characterized by tingling and burning sensations, and is scheduled to see a neurologist. Gala has a history of prostatitis and is currently on alfuzosin. He inquires about the need for a colonoscopy now that he is 44 years old and expresses concern about the procedure. He also asks about the need for a measles booster given recent outbreaks. Gala reports a history of flu-like symptoms, including high fever, body aches, and fatigue, but denies COVID-19. He is unsure if he received a flu shot in 2023. He also inquires about the need for a hepatitis B vaccination. PAST MEDICAL HISTORY Diagnosis Date Atypical chest pain 07/17/2015 Diabetes (HCC) Elevated bilirubin ?chronic versus intermittent mild elevation sicne childhood--benign condition Hyperlipidemia Kidney stone on left side had to have blasted and stented (treated Dr. Mittal) Vitamin D deficiency Current Outpatient Medications Medication Sig celecoxib (CELEBREX) 200 mg capsule take 1 capsule by mouth once daily with food (Patient not taking: Reported on 04/25/2024) omeprazole (PRILOSEC) 20 mg capsule Take 1 capsule by mouth daily before breakfast. 1/2 hr before meal. metFORMIN ER (GLUCOPHAGE XR) 500 mg 24 hr tablet Take 4 tablets by mouth daily with breakfast. ALPRAZolam (XANAX) 1 mg tablet Take 1 tablet by mouth once daily as needed for anxiety for up to 30 days. albuterol HFA (PROVENTIL HFA, VENTOLIN HFA) 90 mcg/actuation inhaler Inhale 2 Puffs as instructed every 4 hours as needed for wheezing/shortness of breath. baclofen 10 mg tablet take 1 tablet by mouth three times a day if needed muscle spasm (Patient not taking: Reported on 05/03/2024) alfuzosin SR (UROXATRAL) 10 mg 24 hr tablet Take 1 tablet by mouth daily at bedtime. lisinopril (ZESTRIL) 10 mg tablet Take 1 tablet by mouth once daily. atorvastatin (LIPITOR) 20 mg tablet Take 1 tablet by mouth once daily. aspirin, enteric coated (ASPIRIN, ENTERIC COATED) 81 mg EC tablet Take 1 tablet by mouth two times a day. celecoxib (CELEBREX) 100 mg capsule Take 1 capsule by mouth two times a day. Cholecalciferol, Vitamin D3, (VITAMIN D-3) 2,000 unit cap Take 1 capsule by mouth once daily. blood sugar diagnostic (BLOOD GLUCOSE TEST) test strip Test blood sugar(s) 1 times daily and as needed. Dx: Type 2 DM - Uncontrolled E11.9 Insulin: No Lancets lancets Test blood sugar(s) 1 times daily. Dx: Type 2 DM - Uncontrolled E11.65 Insulin: No No current facility-administered medications for this visit. Review of Systems Objective BP 118/70 Pulse 98 Wt 108.7 kg (239 lb 10.2 oz) SpO2 98% BMI 27.70 kg/m? Last 5 Encounter Wt Readings: Date: Wt: 06/05/2024 108.7 kg (239 lb 10.2 oz) 05/03/2024 109.1 kg (240 lb 8.4 oz) 04/25/2024 110.9 kg (244 lb 7.8 oz) 01/17/2024 108.9 kg (240 lb) 12/26/2023 109.4 kg (241 lb 2.9 oz) No waist measurement recorded Estimated body mass index is 27.7 kg/m? as calculated from the following: Height as of 10/20/23: 198.1 cm (6' 5.99). Weight as of this encounter: 108.7 kg (239 lb 10.2 oz). Last 5 Encounter BP Readings: Date: BP: 06/05/2024 118/70 05/03/2024 122/76 04/25/2024 122/72 12/26/2023 122/72 11/23/2023 118/82 Physical Exa (more content not included)... [facility] 06-05-2024 History of Present illness Narrative This note was created using [employer]. Subjective Patient presents with: F/U 6 months SUBJECTIVE: Gala Yun is a 44 year old year old gentleman here today for 6 month follow up appointment for review of medical conditions. Gala Yun is a 44-year-old male with a history of DM, presenting for a 6-month follow-up. Gala reports a recent increase in HbA1c to 6.6%, the highest it has been in a while. He attributes this to poor dietary choices and reduced exercise during the holidays, as well as a recent illness for which he was prescribed steroids and antibiotics. He notes the appearance of dark spots on his shins around [place], which he associates with his diabetes. He is currently exercising 5-6 days a week and aims to improve his diet to lower his HbA1c to around 5.5%. His previous HbA1c was 5.8%. Gala expresses concern about the efficacy of his medications, noting that he takes all his medications in the morning with breakfast and has observed what appears to be whole pills in his stool. He questions whether he is receiving the full benefit of his medications, particularly metformin and Prilosec. He also inquires about the significance of his LDL cholesterol levels, which are below the threshold, and whether this could indicate another problem. Gala has a history of hip surgery and reports significant improvement in mobility and pain since the surgery. He is now able to perform squats and walk without pain, activities he has not been able to do for 5 years. He also reports a history of neuropathy in his left foot, characterized by tingling and burning sensations, and is scheduled to see a neurologist. Gala has a history of prostatitis and is currently on alfuzosin. He inquires about the need for a colonoscopy now that he is 44 years old and expresses concern about the procedure. He also asks about the need for a measles booster given recent outbreaks. Gala reports a history of flu-like symptoms, including high fever, body aches, and fatigue, but denies COVID-19. He is unsure if he received a flu shot in 2023. He also inquires about the need for a hepatitis B vaccination. PAST MEDICAL HISTORY Diagnosis Date Atypical chest pain 07/17/2015 Diabetes (HCC) Elevated bilirubin ?chronic versus intermittent mild elevation sicne childhood--benign condition Hyperlipidemia Kidney stone on left side had to have blasted and stented (treated Dr. Mittal) Vitamin D deficiency Current Outpatient Medications Medication Sig celecoxib (CELEBREX) 200 mg capsule take 1 capsule by mouth once daily with food (Patient not taking: Reported on 04/25/2024) omeprazole (PRILOSEC) 20 mg capsule Take 1 capsule by mouth daily before breakfast. 1/2 hr before meal. metFORMIN ER (GLUCOPHAGE XR) 500 mg 24 hr tablet Take 4 tablets by mouth daily with breakfast. ALPRAZolam (XANAX) 1 mg tablet Take 1 tablet by mouth once daily as needed for anxiety for up to 30 days. albuterol HFA (PROVENTIL HFA, VENTOLIN HFA) 90 mcg/actuation inhaler Inhale 2 Puffs as instructed every 4 hours as needed for wheezing/shortness of breath. baclofen 10 mg tablet take 1 tablet by mouth three times a day if needed muscle spasm (Patient not taking: Reported on 05/03/2024) alfuzosin SR (UROXATRAL) 10 mg 24 hr tablet Take 1 tablet by mouth daily at bedtime. lisinopril (ZESTRIL) 10 mg tablet Take 1 tablet by mouth once daily. atorvastatin (LIPITOR) 20 mg tablet Take 1 tablet by mouth once daily. aspirin, enteric coated (ASPIRIN, ENTERIC COATED) 81 mg EC tablet Take 1 tablet by mouth two times a day. celecoxib (CELEBREX) 100 mg capsule Take 1 capsule by mouth two times a day. Cholecalciferol, Vitamin D3, (VITAMIN D-3) 2,000 unit cap Take 1 capsule by mouth once daily. blood sugar diagnostic (BLOOD GLUCOSE TEST) test strip Test blood sugar(s) 1 times daily and as needed. Dx: Type 2 DM - Uncontrolled E11.9 Insulin: No Lancets lancets Test blood sugar(s) 1 times daily. Dx: Type 2 DM - Uncontrolled E11.65 Insulin: No No current facility-administered medications for this visit. Review of Systems Objective BP 118/70 Pulse 98 Wt 108.7 kg (239 lb 10.2 oz) SpO2 98% BMI 27.70 kg/m Last 5 Encounter Wt Readings: Date: Wt: 06/05/2024 108.7 kg (239 lb 10.2 oz) 05/03/2024 109.1 kg (240 lb 8.4 oz) 04/25/2024 110.9 kg (244 lb 7.8 oz) 01/17/2024 108.9 kg (240 lb) 12/26/2023 109.4 kg (241 lb 2.9 oz) No waist measurement recorded Estimated body mass index is 27.7 kg/m as calculated from the following: Height as of 10/20/23: 198.1 cm (6' 5.99). Weight as of this encounter: 108.7 kg (239 lb 10.2 oz). Last 5 Encounter BP Readings: Date: BP: 06/05/2024 118/70 05/03/2024 122/76 04/25/2024 122/72 12/26/2023 122/72 11/23/2023 118/82 Physical Exam Vitals reviewed. Constitutional: Appearance: Normal appearance. Eyes: Conjunctiva/sclera: Conjunctivae normal. Cardiovascular: Rate and Rhythm: Normal rate and regular rhythm. Pulses: Dorsalis pedis pulses are 2+ on the right side and 2+ on the left side. Posterior tibial pulses are 2+ on the right side and 2+ on the left side. Heart sounds: Normal heart sounds. Pulmonary: Effort: Pulmonary effort is normal. Breath sounds: Normal breath sounds. Musculoskeletal: Right lower leg: No edema. Left lower leg: No edema. Feet: Right foot: Protective Sensation: 10 sites tested. 10 sites sensed. Skin integrity: Skin integrity normal. Left foot: Protective Sensation: 10 sites tested. 10 sites sensed. Skin integrity: Skin integrity normal. Skin: General: Skin is warm and dry. Neurological: General: No focal deficit present. Mental Status: He is alert and oriented to person, place, and time. Psychiatric: Mood and Affect: Mood normal. Behavior: Behavior normal. Thought Content: Thought content normal. Judgment: Judgment normal. Latest Ref Rng 11/10/2022 03/02/2023 06/16/2023 05/31/2024 Protein, Total 6.3 - 8.0 g/dL 6.5 6.7 7.0 Albumin 3.9 - 4.9 g/dL 4.7 4.7 4.7 Calcium 8.5 - 10.2 mg/dL 9.6 9.2 9.2 Bilirubin, Total 0.2 - 1.3 mg/dL 2.6 (H) 2.9 (H) 4.0 (H) Alkaline Phosphatase 38 - 113 U/L 56 61 63 AST 14 - 40 U/L 22 25 20 ALT 10 - 54 U/L 24 23 26 Glucose 74 - 99 mg/dL 146 (H) 124 (H) 160 (H) BUN 9 - 24 mg/dL 13 16 13 Creatinine 0.73 - 1.22 mg/dL 0.93 0.82 0.77 Sodium 136 - 144 mmol/L 137 137 137 Potassium 3.7 - 5.1 mmol/L 4.1 4.1 3.7 Chloride 98 - 107 mmol/L 100 100 100 CO2 22 - 30 mmol/L 24 27 23 Anion Gap 8 - 15 mmol/L 13 10 14 eGFR >=60 mL/min/1.73m 104 111 113 WBC 3.70 - 11.00 k/uL 5.17 5.07 RBC 4.20 - 6.00 m/uL 5.25 5.46 Hemoglobin 13.0 - 17.0 g/dL 16.2 16.6 Hematocrit 39.0 - 51.0 % 46.7 46.7 MCV 80.0 - 100.0 fL 89.0 85.5 MCH 26.0 - 34.0 pg 30.9 30.4 MCHC 30.5 - 36.0 g/dL 34.7 35.5 RDW-CV 11.5 - 15.0 % 13.1 13.5 Platelet Count 150 - 400 k/uL 155 171 MPV 9.0 - 12.7 fL 9.6 9.3 Absolute nRBC <0.01 k/uL <0.01 <0.01 Cholesterol, Total <200 mg/dL 120 95 98 Triglyceride <150 mg/dL 234 (H) 96 90 HDL Cholesterol >39 mg/dL 34 (L) 40 40 Non HDL Cholesterol <130 mg/dL 86 55 58 Fasting Time hrs 12 12 11 VLDL Cholesterol <30 mg/dL 47 (H) 19 18 TC:HDL Ratio <5.10 3.53 2.38 2.45 LDL Cholesterol <100 mg/dL 39 36 40 LDL:HDL Ratio <2.54 1.15 0.90 1.00 Creatinine, Ur Random (UCRR) 20.0 - 300.0 mg/dL 149.5 Albumin, Urine Random mg/L 19.7 Albumin/Creat Ratio <30 mg/g 13 Hemoglobin A1C 4.3 - 5.6 % 5.9 (H) 5.8 (H) 6.6 (H) Estimated Average Glucose mg/dL 123 120 143 Vitamin D 25 Hydroxy 31.0 - 80.0 ng/mL 49.0 68.8 56.0 TSH 0.270 - 4.200 mIU/L 1.200 Legend: (H) High (L) Low Assessment and Plan # Type 2 diabetes mellitus without complication, without long-term current use of insulin (HCC) (E11.9) - Recent A1c elevated at 6.6%, previously 5.8%. - Discussed impact of recent illness and steroid use on blood glucose levels. - Reinforced importance of diet and exercise in glycemic control. - Continue Metformin XR; discussed concerns about medication absorption. - Educated on potential need for insulin if A1c remains uncontrolled. - Performed diabetic foot exam; normal findings. - Follow-up in 6 months. # Panic (F41.0) Doing well with as needed alprazolam. Refill given. Has needed more lately but not daily. Will set refill for end of this month. He will call when needs next refill. # Irritable bowel syndrome with diarrhea (K58.0) - Reports observing what appears to be whole pills in stool. - Discussed potential impact of IBS on medication absorption. - Advised to monitor symptoms and report any changes. # Gilbert's syndrome (E80.4) - Elevated bilirubin levels noted, consistent with Gilbert's syndrome with some increase from baselin due to recent illness. - No additional treatment required. - Continue to monitor for routine labs # Encounter for immunization (Z23) - Administered COVID-19 booster vaccine. - Discussed Hepatitis B vaccination; patient to start 3-dose series. # Screening for colon cancer (Z12.11) - Discussed colonoscopy screening; patient agrees to proceed. - Ordered colonoscopy with Miralax prep. - Provided instructions for preparation and scheduling. # History of right hip replacement (Z96.641) - Recovery progressing well; improved mobility and ability to exercise. - No current issues reported. # Long-term current use of proton pump inhibitor therapy (Z79.899) - Taking Prilosec with other medications in the morning. - Advised to take Prilosec separately before meals for optimal efficacy. - Refill scheduled for June 21. I spent a total of 51 minutes on the date of the service which included preparing to see the patient, [id number] patient care, completing clinical documentation, obtaining and/or reviewing separately obtained history, performing a medically appropriate examination, counseling and educating the patient/family/caregiver, ordering medications, tests, or procedures, independently interpreting results (not separately reported), and communicating results to the patient/family/caregiver. Vesta Stallworth MD documented in this encounter [facility] 05-29-2024 Telephone encounter Note The following approved medication requests have been transmitted electronically. Requested Prescriptions Pending Prescriptions Disp Refills omeprazole (PRILOSEC) 20 mg capsule 90 capsule 1 Sig: Take 1 capsule by mouth daily before breakfast. 1/2 hr before meal. metFORMIN ER (GLUCOPHAGE XR) 500 mg 24 hr tablet 360 tablet 3 Sig: Take 4 tablets by mouth daily with breakfast. Vesta Stallworth MD Has labs ordered--may do before next appointment or when comes for appointment (fasting lipid order but if not able to come fasting, can order nonfasting lipid) [facility] 05-29-2024 Miscellaneous Notes The following approved medication requests have been transmitted electronically. Requested Prescriptions Pending Prescriptions Disp Refills omeprazole (PRILOSEC) 20 mg capsule 90 capsule 1 Sig: Take 1 capsule by mouth daily before breakfast. 1/2 hr before meal. metFORMIN ER (GLUCOPHAGE XR) 500 mg 24 hr tablet 360 tablet 3 Sig: Take 4 tablets by mouth daily with breakfast. Vesta Stallworth MD Has labs ordered--may do before next appointment or when comes for appointment (fasting lipid order but if not able to come fasting, can order nonfasting lipid) Verified, pharmacy was working off old RX, RX escripted on 11/23/2023 is now 6 month old, needing new RX. Patient has been identified by name and date of : Yes Patient phones for refill(s): Requested Prescriptions Pending Prescriptions Disp Refills omeprazole (PRILOSEC) 20 mg capsule 90 capsule 1 Sig: Take 1 capsule by mouth daily before breakfast. 1/2 hr before meal. metFORMIN ER (GLUCOPHAGE XR) 500 mg 24 hr tablet 360 tablet 3 Sig: Take 4 tablets by mouth daily with breakfast. Date of last office visit in primary care: 11/23/2023 Date of next office visit in primary care: 06/05/2024 Please advise. Thank you. Judy Box LPN. documented in this encounter [facility] 05-28-2024 Telephone encounter Note Verified, pharmacy was working off old RX, RX escripted on 11/23/2023 is now 6 month old, needing new RX. Patient has been identified by name and date of : Yes Patient phones for refill(s): Requested Prescriptions Pending Prescriptions Disp Refills omeprazole (PRILOSEC) 20 mg capsule 90 capsule 1 Sig: Take 1 capsule by mouth daily before breakfast. 1/2 hr before meal. metFORMIN ER (GLUCOPHAGE XR) 500 mg 24 hr tablet 360 tablet 3 Sig: Take 4 tablets by mouth daily with breakfast. Date of last office visit in primary care: 11/23/2023 Date of next office visit in primary care: 06/05/2024 Please advise. Thank you. Judy Box LPN. [facility] 05-22-2024 Telephone encounter Note The following approved medication requests have been transmitted electronically. Requested Prescriptions Signed Prescriptions Disp Refills ALPRAZolam (XANAX) 1 mg tablet 30 tablet 0 Sig: Take 1 tablet by mouth once daily as needed for anxiety for up to 30 days. Authorizing Provider: VESTA STALLWORTH MD [facility] 05-22-2024 Miscellaneous Notes The following approved medication requests have been transmitted electronically. Requested Prescriptions Signed Prescriptions Disp Refills ALPRAZolam (XANAX) 1 mg tablet 30 tablet 0 Sig: Take 1 tablet by mouth once daily as needed for anxiety for up to 30 days. Authorizing Provider: VESTA STALLWORTH MD Patient has been identified by name and date of : Yes Patient phones for refill(s): Requested Prescriptions Pending Prescriptions Disp Refills ALPRAZolam (XANAX) 1 mg tablet 30 tablet 0 Sig: Take 1 tablet by mouth once daily as needed for anxiety for up to 30 days. Date of last office visit in primary care: 11/23/2023 Date of next office visit in primary care: 06/05/2024 Please advise. Thank you. Judy Box LPN. documented in this encounter [facility] 05-21-2024 Telephone encounter Note Patient has been identified by name and date of : Yes Patient phones for refill(s): Requested Prescriptions Pending Prescriptions Disp Refills ALPRAZolam (XANAX) 1 mg tablet 30 tablet 0 Sig: Take 1 tablet by mouth once daily as needed for anxiety for up to 30 days. Date of last office visit in primary care: 11/23/2023 Date of next office visit in primary care: 06/05/2024 Please advise. Thank you. Judy Box LPN. [facility] 05-03-2024 Instructions Rashida Jones APRN.KRISTINA - 05/03/2024 9:18 AM EST Images from the original note were not included. ASSESSMENT/PLAN: 1. Sinobronchitis - ICD9: 473.9, 490, ICD10: J32.9, J40 - Will begin treatment with as per antibiotic as written, see orders - Supportive care with plenty of fluids, rest, and analgesia prn. - METHYLPREDNISOLONE 4 MG TABLETS IN A DOSE PACK - AMOXICILLIN 875 MG-POTASSIUM CLAVULANATE 125 MG TABLET - ALBUTEROL SULFATE HFA 90 MCG/ACTUATION AEROSOL INHALER - Follow-up with your PCP in 3-5 days if symptoms have not improved or sooner if symptoms worsen - Discussed red flags and need for immediate medical evaluation if any occur. - Discussed supportive care treatment with fluids, rest and analgesia. - Discussed expected course of illness Rashida Jones APRN.[employer] Adult Sinusitis Patient Education What is Sinusitis? Sinusitis [kpgx-uod-haqv-tis] is inflammation of the sinuses or swelling of the lining of the sinus cavity or nose. During an infection the sinuses become blocked with fluid causing swelling of the lining of the sinuses. Symptoms: (viral and bacterial infections) Stuffy nose Runny nose Postnasal drip Fever Toothache Headache Tiredness Cough Sore throat Face and head pressure and or pain Common causes: 98% of sinus infections are viral caused by viruses. Risk Factors of Sinusitis Include: Allergies, air pollution, indoor humidity and outdoor temperature changes, andstructural changes in the nose may contribute to sinus pain, pressure and congestion. When to get help? Temperature greater than 100.4 F Symptoms lasting more than 10 days or worsening symptoms greater than 7-10 days. If you do not improve or worsen after a course of antibiotics, you should be re-examined. Diagnosis and Treatment: Your healthcare provider will ask a number of questions about your symptoms and how long they have occurred. If symptoms of sinusitis persist greater than 10 days, it is possible you have a bacterial sinus infection and an antibiotic is prescribed. If it is viral, antibiotics will not help. You may be instructed to take [id number] medications for symptoms. including fever reducers acetaminophen or ibuprofen, nasal saline spray, cough and cold preparations and decongestants as prescribed by the physician, nurse practitioner or physician program services assistant. Self-Care and Prevention: Rest Fluids for hydration Good hand washing Humidifier Avoid smoking and exposure to second hand smoke Avoid sick contacts [facility] [place] [id number] [place] [id number] Emergency Department Diagnosis: Assessment ACUTE BRONCHITIS: You have acute bronchitis. This means the airway passages in your lungs are inflamed. Bronchitis may be caused by viruses or bacteria. Inhaling cigarette smoke will always make it worse. Exposure to irritating chemicals or second hand smoke as well as allergies can contribute to bronchitis. Repeat episodes of bronchitis may cause lifelong lung problems. Acute bronchitis is usually treated with rest, fluids, cough medicine, and possibly antibiotics or inhaled medicine to open up the small airways. It is very important that you avoid smoke and drink increased amounts of fluids. A cool air vaporizer can help thin bronchial secretions. This makes it easier to cough and clear your chest. If you are a cigarette smoker, consider using nicotine gum or skin patches to help you withdraw. Recovery from bronchitis is often slow, but you should start feeling better after 2-3 days of treatment. Please call your doctor or return here if you have any of the following symptoms: Increased fever, chills, or chest pain. Severe shortness of breath or bloody sputum. Do not improve after 3 days of proper treatment. documented in this encounter [facility] 05-03-2024 Note HNO ID: [id number] Author: RASHIDA JONES APRN.[employer] Service: ? Author Type: Nurse Practitioner Type: Progress Notes Filed: 05/03/2024 09:19 Note Text: Subjective Cough Associated symptoms include headaches and shortness of breath. Pertinent negatives include no chest pain, no chills, no ear pain, no sore throat and no myalgias. Gala Yun is a 44 year old male who presents with cough and chest congestion, nasal congestion and drainage for the past 2 weeks. He was seen here on 04/25 and had chest xray which was negative. No medication was prescribed at that visit. He has not taken any medication at home. He denies fever or chills. He believes he had influenza initially and most of those symptoms have resolved except the cough and nasal congestion. He has had some shortness of breath when he tries to exercise. Review of Systems Constitutional: Negative for chills, fever and malaise/fatigue. HENT: Positive for congestion. Negative for ear pain and sore throat. Respiratory: Positive for cough, sputum production and shortness of breath. Cardiovascular: Negative for chest pain. Gastrointestinal: Negative for diarrhea, nausea and vomiting. Musculoskeletal: Negative for myalgias. Neurological: Positive for headaches. BP 122/76 Pulse 74 Temp 36.4 ?C (97.5 ?F) Resp 19 Wt 109.1 kg (240 lb 8.4 oz) SpO2 98% BMI 27.80 kg/m? PAST MEDICAL HISTORY Diagnosis Date Atypical chest pain 07/17/2015 Diabetes (HCC) Elevated bilirubin ?chronic versus intermittent mild elevation sicne childhood--benign condition Hyperlipidemia Kidney stone on left side had to have blasted and stented (treated Dr. Mittal) Vitamin D deficiency PAST SURGICAL HISTORY Procedure Laterality Date EXTENSIVE HIP SURGERY Right 09/17/2021 HIP RESURFACING BRANDON Right 10/20/2023 PAST SURGICAL HISTORY OF 04/04/2009 kidney stone, blasted, stent placed PAST SURGICAL HISTORY OF 04/19/2013 Left elbow lateral epicondylar release, Dr. Damon PAST SURGICAL HISTORY OF Right Athroscopy ALLERGIES Prednisone MEDICATIONS celecoxib (CELEBREX) 200 mg capsule take 1 capsule by mouth once daily with food (Patient not taking: Reported on 04/25/2024) ALPRAZolam (XANAX) 1 mg tablet Take 1 tablet by mouth once daily as needed for anxiety for up to 30 days. alfuzosin SR (UROXATRAL) 10 mg 24 hr tablet Take 1 tablet by mouth daily at bedtime. omeprazole (PRILOSEC) 20 mg capsule Take 1 capsule by mouth daily before breakfast. 1/2 hr before meal. metFORMIN ER (GLUCOPHAGE XR) 500 mg 24 hr tablet Take 4 tablets by mouth daily with breakfast. lisinopril (ZESTRIL) 10 mg tablet Take 1 tablet by mouth once daily. atorvastatin (LIPITOR) 20 mg tablet Take 1 tablet by mouth once daily. aspirin, enteric coated (ASPIRIN, ENTERIC COATED) 81 mg EC tablet Take 1 tablet by mouth two times a day. Cholecalciferol, Vitamin D3, (VITAMIN D-3) 2,000 unit cap Take 1 capsule by mouth once daily. blood sugar diagnostic (BLOOD GLUCOSE TEST) test strip Test blood sugar(s) 1 times daily and as needed. Dx: Type 2 DM - Uncontrolled E11.9 Insulin: No Lancets lancets Test blood sugar(s) 1 times daily. Dx: Type 2 DM - Uncontrolled E11.65 Insulin: No methylPREDNISolone (MEDROL, MITCHELL,) 4 mg Dose-Pack Follow dosing instructions, take with food. amoxicillin-clavulanate potassium (AUGMENTIN) 875-125 mg per tablet Take 1 tablet by mouth two times a day for 7 days. albuterol HFA (PROVENTIL HFA, VENTOLIN HFA) 90 mcg/actuation inhaler Inhale 2 Puffs as instructed every 4 hours as needed for wheezing/shortness of breath. Inhalational Spacing Device 1 Device one time only for 1 dose. baclofen 10 mg tablet take 1 tablet by mouth three times a day if needed muscle spasm (Patient not taking: Reported on 05/03/2024) celecoxib (CELEBREX) 100 mg capsule Take 1 capsule by mouth two times a day. FAMILY HISTORY Problem Relation Age of Onset Coronary Artery Disease Father CABG at age 58 None Mother None Sister None Brother Ischemic Heart Disease Paternal Grandmother Stroke Paternal Grandmother Stroke Maternal Grandmother other (leukemia [Other]) Paternal Grandfather Social History Tobacco Use Smoking status: Former Smokeless tobacco: Never Vaping Use Vaping status: Never Used Substance Use Topics Alcohol use: Not Currently Comment: 1-2 times a week Drug use: Yes Frequency: 3.0 times per week Types: Marijuana Comment: Several times per week Objective Physical Exam Vitals and nursing note reviewed. Constitutional: General: He is not in acute distress. Appearance: Normal appearance. He is not ill-appearing. HENT: Right Ear: Tympanic membrane, ear canal and external ear normal. Left Ear: Tympanic membrane, ear canal and external ear normal. Nose: Mucosal edema, congestion and rhinorrhea present. Mouth/Throat: Mouth: Mucous membranes are moist. Pharynx: Uvula midline. Posterior oropharyng (more content not included)... [facility] 05-03-2024 History of Present illness Narrative Subjective Cough Associated symptoms include headaches and shortness of breath. Pertinent negatives include no chest pain, no chills, no ear pain, no sore throat and no myalgias. Gala Yun is a 44 year old male who presents with cough and chest congestion, nasal congestion and drainage for the past 2 weeks. He was seen here on 04/25 and had chest xray which was negative. No medication was prescribed at that visit. He has not taken any medication at home. He denies fever or chills. He believes he had influenza initially and most of those symptoms have resolved except the cough and nasal congestion. He has had some shortness of breath when he tries to exercise. Review of Systems Constitutional: Negative for chills, fever and malaise/fatigue. HENT: Positive for congestion. Negative for ear pain and sore throat. Respiratory: Positive for cough, sputum production and shortness of breath. Cardiovascular: Negative for chest pain. Gastrointestinal: Negative for diarrhea, nausea and vomiting. Musculoskeletal: Negative for myalgias. Neurological: Positive for headaches. BP 122/76 Pulse 74 Temp 36.4 C (97.5 F) Resp 19 Wt 109.1 kg (240 lb 8.4 oz) SpO2 98% BMI 27.80 kg/m PAST MEDICAL HISTORY Diagnosis Date Atypical chest pain 07/17/2015 Diabetes (HCC) Elevated bilirubin ?chronic versus intermittent mild elevation sicne childhood--benign condition Hyperlipidemia Kidney stone on left side had to have blasted and stented (treated Dr. Mittal) Vitamin D deficiency PAST SURGICAL HISTORY Procedure Laterality Date EXTENSIVE HIP SURGERY Right 09/17/2021 HIP RESURFACING [place] Right 10/20/2023 PAST SURGICAL HISTORY OF 04/04/2009 kidney stone, blasted, stent placed PAST SURGICAL HISTORY OF 04/19/2013 Left elbow lateral epicondylar release, Dr. Damon PAST SURGICAL HISTORY OF Right Athroscopy ALLERGIES Prednisone MEDICATIONS celecoxib (CELEBREX) 200 mg capsule take 1 capsule by mouth once daily with food (Patient not taking: Reported on 04/25/2024) ALPRAZolam (XANAX) 1 mg tablet Take 1 tablet by mouth once daily as needed for anxiety for up to 30 days. alfuzosin SR (UROXATRAL) 10 mg 24 hr tablet Take 1 tablet by mouth daily at bedtime. omeprazole (PRILOSEC) 20 mg capsule Take 1 capsule by mouth daily before breakfast. 1/2 hr before meal. metFORMIN ER (GLUCOPHAGE XR) 500 mg 24 hr tablet Take 4 tablets by mouth daily with breakfast. lisinopril (ZESTRIL) 10 mg tablet Take 1 tablet by mouth once daily. atorvastatin (LIPITOR) 20 mg tablet Take 1 tablet by mouth once daily. aspirin, enteric coated (ASPIRIN, ENTERIC COATED) 81 mg EC tablet Take 1 tablet by mouth two times a day. Cholecalciferol, Vitamin D3, (VITAMIN D-3) 2,000 unit cap Take 1 capsule by mouth once daily. blood sugar diagnostic (BLOOD GLUCOSE TEST) test strip Test blood sugar(s) 1 times daily and as needed. Dx: Type 2 DM - Uncontrolled E11.9 Insulin: No Lancets lancets Test blood sugar(s) 1 times daily. Dx: Type 2 DM - Uncontrolled E11.65 Insulin: No methylPREDNISolone (MEDROL, MITCHELL,) 4 mg Dose-Pack Follow dosing instructions, take with food. amoxicillin-clavulanate potassium (AUGMENTIN) 875-125 mg per tablet Take 1 tablet by mouth two times a day for 7 days. albuterol HFA (PROVENTIL HFA, VENTOLIN HFA) 90 mcg/actuation inhaler Inhale 2 Puffs as instructed every 4 hours as needed for wheezing/shortness of breath. Inhalational Spacing Device 1 Device one time only for 1 dose. baclofen 10 mg tablet take 1 tablet by mouth three times a day if needed muscle spasm (Patient not taking: Reported on 05/03/2024) celecoxib (CELEBREX) 100 mg capsule Take 1 capsule by mouth two times a day. FAMILY HISTORY Problem Relation Age of Onset Coronary Artery Disease Father CABG at age 58 None Mother None Sister None Brother Ischemic Heart Disease Paternal Grandmother Stroke Paternal Grandmother Stroke Maternal Grandmother other (leukemia [Other]) Paternal Grandfather Social History Tobacco Use Smoking status: Former Smokeless tobacco: Never Vaping Use Vaping status: Never Used Substance Use Topics Alcohol use: Not Currently Comment: 1-2 times a week Drug use: Yes Frequency: 3.0 times per week Types: Marijuana Comment: Several times per week Objective Physical Exam Vitals and nursing note reviewed. Constitutional: General: He is not in acute distress. Appearance: Normal appearance. He is not ill-appearing. HENT: Right Ear: Tympanic membrane, ear canal and external ear normal. Left Ear: Tympanic membrane, ear canal and external ear normal. Nose: Mucosal edema, congestion and rhinorrhea present. Mouth/Throat: Mouth: Mucous membranes are moist. Pharynx: Uvula midline. Posterior oropharyngeal erythema present. No oropharyngeal exudate. Cardiovascular: Rate and Rhythm: Normal rate and regular rhythm. Heart sounds: Normal heart sounds. Pulmonary: Effort: Pulmonary effort is normal. No respiratory distress. Breath sounds: Normal breath sounds. No wheezing or rales. Musculoskeletal: Cervical back: Neck supple. Lymphadenopathy: Cervical: No cervical adenopathy. Skin: General: Skin is warm and dry. Findings: No erythema or rash. Neurological: Mental Status: He is alert. ASSESSMENT/PLAN: 1. Sinobronchitis - ICD9: 473.9, 490, ICD10: J32.9, J40 - Will begin treatment with as per antibiotic as written, see orders - Supportive care with plenty of fluids, rest, and analgesia prn. - METHYLPREDNISOLONE 4 MG TABLETS IN A DOSE PACK - AMOXICILLIN 875 MG-POTASSIUM CLAVULANATE 125 MG TABLET - ALBUTEROL SULFATE HFA 90 MCG/ACTUATION AEROSOL INHALER - Follow-up with your PCP in 3-5 days if symptoms have not improved or sooner if symptoms worsen - Discussed red flags and need for immediate medical evaluation if any occur. - Discussed supportive care treatment with fluids, rest and analgesia. - Discussed expected course of illness Rashida Jones APRN.[employer] documented in this encounter [facility] 01-22-2025 History of Present illness Narrative Radiology Service Progress Note PATIENT NAME: Gala Yun DATE OF SERVICE: April 25, 2024 TIME: 11:21 AM PATIENT IDENTITY VERIFICATION COMPLETED USING TWO (2) IDENTIFIERS: Name and Date of confirmed by patient verbally. FALL SCREENING: Has the patient had 2 falls in the last year or 1 fall with injury or currently using an Ambulatory Assistive Device (Walker, Cane, Wheelchair, Crutches, etc.)? No PATIENT GENDER DATA: Assigned male at PATIENT RELEVANT IMPLANT DATA REVIEWED: Not Applicable PATIENT PRESENTS WITH AN IMPLANTABLE OR ATTACHED STUCCO MASON: No RADIOLOGY DEPARTMENT: General X-ray: Exam(s) Completed: Chest X-Ray PERIPHERAL IV DATA: Not applicable SIGNED BY: RT Demond(Lula) April 25, 2024 11:21 AM documented in this encounter [facility] 04-25-2024 Note HNO ID: [id number] Author: ISIDRA STEWART RT(Lula) Service: Radiology Author Type: Technologist Type: Progress Notes Filed: 04/25/2024 11:25 Note Text: Radiology Service Progress Note PATIENT NAME: Gala Yun DATE OF SERVICE: April 25, 2024 TIME: 11:21 AM PATIENT IDENTITY VERIFICATION COMPLETED USING TWO (2) IDENTIFIERS: Name and Date of confirmed by patient verbally. FALL SCREENING: Has the patient had 2 falls in the last year or 1 fall with injury or currently using an Ambulatory Assistive Device (Walker, Cane, Wheelchair, Crutches, etc.)? No PATIENT GENDER DATA: Assigned male at PATIENT RELEVANT IMPLANT DATA REVIEWED: Not Applicable PATIENT PRESENTS WITH AN IMPLANTABLE OR ATTACHED STUCCO MASON: No RADIOLOGY DEPARTMENT: General X-ray: Exam(s) Completed: Chest X-Ray PERIPHERAL IV DATA: Not applicable SIGNED BY: RT Demond(Lula) April 25, 2024 11:21 AM [facility] 04-25-2024 Note HNO ID: [id number] Author: ALESSANDRA ZHOU PA Service: ? Author Type: Physician Car Lubricator Type: Progress Notes Filed: 04/25/2024 11:32 Note Text: This note was created using [employer]. Subjective Gala Yun is a 44 year old male. HPI 44-year-old male presents for cough, rib pain. Patient states he has had a cough for the past 5 days. He states cough is dry. He states that he initially had nasal congestion and fevers and bodyaches. This has all resolved. He came in today because he is having right sided rib pain. He reports pain is over his right lower anterior ribs. He states the pain is an 8 out of 10 with coughing. He has no pain at rest. No chest pain. He has a little bit of shortness of breath occasionally. He denies any recent travel, no leg swelling. No recent hospitalization. No other complaint. PAST MEDICAL HISTORY Diagnosis Date Atypical chest pain 07/17/2015 Diabetes (HCC) Elevated bilirubin ?chronic versus intermittent mild elevation sicne childhood--benign condition Hyperlipidemia Kidney stone on left side had to have blasted and stented (treated Dr. Mittal) Vitamin D deficiency PAST SURGICAL HISTORY Procedure Laterality Date EXTENSIVE HIP SURGERY Right 09/17/2021 HIP RESURFACING [place] Right 10/20/2023 PAST SURGICAL HISTORY OF 04/04/2009 kidney stone, blasted, stent placed PAST SURGICAL HISTORY OF 04/19/2013 Left elbow lateral epicondylar release, Dr. Damon PAST SURGICAL HISTORY OF Right Athroscopy ALLERGIES Prednisone MEDICATIONS celecoxib (CELEBREX) 200 mg capsuletake 1 capsule by mouth once daily with foodDisp: 90 capsuleRfl: 0 (Patient not taking: Reported on 04/25/2024) ALPRAZolam (XANAX) 1 mg tabletTake 1 tablet by mouth once daily as needed for anxiety for up to 30 days.Disp: 30 tabletRfl: 0 baclofen 10 mg tablettake 1 tablet by mouth three times a day if needed muscle spasmDisp: 90 tabletRfl: 0 alfuzosin SR (UROXATRAL) 10 mg 24 hr tabletTake 1 tablet by mouth daily at bedtime.Disp: 90 tabletRfl: 3 omeprazole (PRILOSEC) 20 mg capsuleTake 1 capsule by mouth daily before breakfast. 1/2 hr before meal.Disp: 90 capsuleRfl: 1 metFORMIN ER (GLUCOPHAGE XR) 500 mg 24 hr tabletTake 4 tablets by mouth daily with breakfast.Disp: 360 tabletRfl: 3 lisinopril (ZESTRIL) 10 mg tabletTake 1 tablet by mouth once daily.Disp: 90 tabletRfl: 3 atorvastatin (LIPITOR) 20 mg tabletTake 1 tablet by mouth once daily.Disp: 90 tabletRfl: 3 aspirin, enteric coated (ASPIRIN, ENTERIC COATED) 81 mg EC tabletTake 1 tablet by mouth two times a day.Disp: 56 tabletRfl: 0 Cholecalciferol, Vitamin D3, (VITAMIN D-3) 2,000 unit capTake 1 capsule by mouth once daily.Disp: Rfl: blood sugar diagnostic (BLOOD GLUCOSE TEST) test stripTest blood sugar(s) 1 times daily and as needed. Dx: Type 2 DM - Uncontrolled E11.9 Insulin: NoDisp: 100 StripRfl: 3 Lancets lancetsTest blood sugar(s) 1 times daily. Dx: Type 2 DM - Uncontrolled E11.65 Insulin: NoDisp: 100 EachRfl: 11 amoxicillin (AMOXIL) 500 mg capsuleTake 4 capsules (2000 mg) 1 hour prior to procedure, then take 2 capsules (1000mg) 6 hours after procedure.Disp: 12 capsuleRfl: 2 celecoxib (CELEBREX) 100 mg capsuleTake 1 capsule by mouth two times a day.Disp: 60 capsuleRfl: 1 FAMILY HISTORY Problem Relation Age of Onset Coronary Artery Disease Father CABG at age 58 None Mother None Sister None Brother Ischemic Heart Disease Paternal Grandmother Stroke Paternal Grandmother Stroke Maternal Grandmother other (leukemia [Other]) Paternal Grandfather Social History Tobacco Use Smoking status: Former Smokeless tobacco: Never Vaping Use Vaping status: Never Used Substance Use Topics Alcohol use: Not Currently Comment: 1-2 times a week Drug use: Yes Frequency: 3.0 times per week Types: Marijuana Comment: Several times per week Review of Systems Constitutional: Negative for chills and fever. HENT: Negative for congestion and sore throat. Respiratory: Positive for cough and shortness of breath. Gastrointestinal: Negative for diarrhea and vomiting. Objective BP 122/72 Pulse 70 Temp 36.1 ?C (96.9 ?F) Resp 16 Wt 110.9 kg (244 lb 7.8 oz) SpO2 97% BMI 28.26 kg/m? Physical Exam Vitals and nursing note reviewed. Constitutional: General: He is not in acute distress. Appearance: Normal appearance. He is not toxic-appearing. HENT: Right Ear: Tympanic membrane and ear canal normal. Left Ear: Tympanic membrane and ear canal normal. Nose: Nose normal. Mouth/Throat: Mouth: Mucous membranes are moist. Eyes: Conjunctiva/sclera: Conjunctivae normal. Cardiovascular: Rate and Rhythm: Normal rate and regular rhythm. Pulmonary: Effort: Pulmonary effort is normal. Breath sounds: Normal breath sounds. No wheezing, rhonchi or rales. Chest: Chest wall: Tenderness present. Comments: Tenderness over right sided lower anterior ribs. No deformity. No crepitat (more content not included)... [facility] 04-25-2024 History of Present illness Narrative Images from the original note were not included. This note was created using [employer]. Subjective Gala Yun is a 44 year old male. HPI 44-year-old male presents for cough, rib pain. Patient states he has had a cough for the past 5 days. He states cough is dry. He states that he initially had nasal congestion and fevers and bodyaches. This has all resolved. He came in today because he is having right sided rib pain. He reports pain is over his right lower anterior ribs. He states the pain is an 8 out of 10 with coughing. He has no pain at rest. No chest pain. He has a little bit of shortness of breath occasionally. He denies any recent travel, no leg swelling. No recent hospitalization. No other complaint. PAST MEDICAL HISTORY Diagnosis Date Atypical chest pain 07/17/2015 Diabetes (HCC) Elevated bilirubin ?chronic versus intermittent mild elevation sicne childhood--benign condition Hyperlipidemia Kidney stone on left side had to have blasted and stented (treated Dr. Mittal) Vitamin D deficiency PAST SURGICAL HISTORY Procedure Laterality Date EXTENSIVE HIP SURGERY Right 09/17/2021 HIP RESURFACING [place] Right 10/20/2023 PAST SURGICAL HISTORY OF 04/04/2009 kidney stone, blasted, stent placed PAST SURGICAL HISTORY OF 04/19/2013 Left elbow lateral epicondylar release, Dr. Damon PAST SURGICAL HISTORY OF Right Athroscopy ALLERGIES Prednisone MEDICATIONS celecoxib (CELEBREX) 200 mg capsule^take 1 capsule by mouth once daily with food^Disp: 90 capsule^Rfl: 0 (Patient not taking: Reported on 04/25/2024) ALPRAZolam (XANAX) 1 mg tablet^Take 1 tablet by mouth once daily as needed for anxiety for up to 30 days.^Disp: 30 tablet^Rfl: 0 baclofen 10 mg tablet^take 1 tablet by mouth three times a day if needed muscle spasm^Disp: 90 tablet^Rfl: 0 alfuzosin SR (UROXATRAL) 10 mg 24 hr tablet^Take 1 tablet by mouth daily at bedtime.^Disp: 90 tablet^Rfl: 3 omeprazole (PRILOSEC) 20 mg capsule^Take 1 capsule by mouth daily before breakfast. 1/2 hr before meal.^Disp: 90 capsule^Rfl: 1 metFORMIN ER (GLUCOPHAGE XR) 500 mg 24 hr tablet^Take 4 tablets by mouth daily with breakfast.^Disp: 360 tablet^Rfl: 3 lisinopril (ZESTRIL) 10 mg tablet^Take 1 tablet by mouth once daily.^Disp: 90 tablet^Rfl: 3 atorvastatin (LIPITOR) 20 mg tablet^Take 1 tablet by mouth once daily.^Disp: 90 tablet^Rfl: 3 aspirin, enteric coated (ASPIRIN, ENTERIC COATED) 81 mg EC tablet^Take 1 tablet by mouth two times a day.^Disp: 56 tablet^Rfl: 0 Cholecalciferol, Vitamin D3, (VITAMIN D-3) 2,000 unit cap^Take 1 capsule by mouth once daily.^Disp: ^Rfl: blood sugar diagnostic (BLOOD GLUCOSE TEST) test strip^Test blood sugar(s) 1 times daily and as needed. Dx: Type 2 DM - Uncontrolled E11.9 Insulin: No^Disp: 100 Strip^Rfl: 3 Lancets lancets^Test blood sugar(s) 1 times daily. Dx: Type 2 DM - Uncontrolled E11.65 Insulin: No^Disp: 100 Each^Rfl: 11 amoxicillin (AMOXIL) 500 mg capsule^Take 4 capsules (2000 mg) 1 hour prior to procedure, then take 2 capsules (1000mg) 6 hours after procedure.^Disp: 12 capsule^Rfl: 2 celecoxib (CELEBREX) 100 mg capsule^Take 1 capsule by mouth two times a day.^Disp: 60 capsule^Rfl: 1 FAMILY HISTORY Problem Relation Age of Onset Coronary Artery Disease Father CABG at age 58 None Mother None Sister None Brother Ischemic Heart Disease Paternal Grandmother Stroke Paternal Grandmother Stroke Maternal Grandmother other (leukemia [Other]) Paternal Grandfather Social History Tobacco Use Smoking status: Former Smokeless tobacco: Never Vaping Use Vaping status: Never Used Substance Use Topics Alcohol use: Not Currently Comment: 1-2 times a week Drug use: Yes Frequency: 3.0 times per week Types: Marijuana Comment: Several times per week Review of Systems Constitutional: Negative for chills and fever. HENT: Negative for congestion and sore throat. Respiratory: Positive for cough and shortness of breath. Gastrointestinal: Negative for diarrhea and vomiting. Objective BP 122/72 Pulse 70 Temp 36.1 C (96.9 F) Resp 16 Wt 110.9 kg (244 lb 7.8 oz) SpO2 97% BMI 28.26 kg/m Physical Exam Vitals and nursing note reviewed. Constitutional: General: He is not in acute distress. Appearance: Normal appearance. He is not toxic-appearing. HENT: Right Ear: Tympanic membrane and ear canal normal. Left Ear: Tympanic membrane and ear canal normal. Nose: Nose normal. Mouth/Throat: Mouth: Mucous membranes are moist. Eyes: Conjunctiva/sclera: Conjunctivae normal. Cardiovascular: Rate and Rhythm: Normal rate and regular rhythm. Pulmonary: Effort: Pulmonary effort is normal. Breath sounds: Normal breath sounds. No wheezing, rhonchi or rales. Chest: Chest wall: Tenderness present. Comments: Tenderness over right sided lower anterior ribs. No deformity. No crepitation. No abdominal tenderness. Skin: General: Skin is warm and dry. Neurological: Mental Status: He is alert. Assessment and Plan ASSESSMENT/PLAN: 1. Acute cough - ICD9: 786.2, ICD10: R05.1 (primary diagnosis) - XR CHEST 2V FRONTAL/LAT-no acute radiographic abnormality. -Suspect viral cough. -Supportive treatment at home 2. Rib pain on right side - ICD9: 786.50, ICD10: R07.81 - XR CHEST 2V FRONTAL/LAT-acute radiographic abnormality. -Suspect musculoskeletal pain from coughing. Tenderness on palpation. Low suspicion for PE. Low suspicion for pneumonia, CXR clear. -Recommend rest, ice, Tylenol/Motrin as needed for pain. Diagnosis and treatment plan were discussed and questions were answered to the patient's satisfaction. Pt acknowledged understanding of concepts and follow up plan. Specific signs and symptoms that would indicate the need for higher level of care were discussed in detail warranting prompt ER evaluation. AYSHA Muñozally signed by Alessandra Zhou PA at 04/25/2024 11:32 AM EST documented in this encounter [facility] 04-10-2024 Telephone encounter Note Patient's request for medication is as follows: Requested Prescriptions Signed Prescriptions Disp Refills celecoxib (CELEBREX) 200 mg capsule 90 capsule 0 Sig: take 1 capsule by mouth once daily with food Authorizing Provider: HEATHER DIEGO Prescription(s) as above. Please process accordingly. Heather Diego PA-C [facility] 04-10-2024 Miscellaneous Notes Patient's request for medication is as follows: Requested Prescriptions Signed Prescriptions Disp Refills celecoxib (CELEBREX) 200 mg capsule 90 capsule 0 Sig: take 1 capsule by mouth once daily with food Authorizing Provider: HEATHER DIEGO Prescription(s) as above. Please process accordingly. Heather Diego PA-C documented in this encounter [facility] 03-29-2024 Telephone encounter Note The following approved medication requests have been transmitted electronically. Requested Prescriptions Signed Prescriptions Disp Refills ALPRAZolam (XANAX) 1 mg tablet 30 tablet 0 Sig: Take 1 tablet by mouth once daily as needed for anxiety for up to 30 days. Authorizing Provider: VESTA STALLWORTH MD [facility] 03-29-2024 Miscellaneous Notes The following approved medication requests have been transmitted electronically. Requested Prescriptions Signed Prescriptions Disp Refills ALPRAZolam (XANAX) 1 mg tablet 30 tablet 0 Sig: Take 1 tablet by mouth once daily as needed for anxiety for up to 30 days. Authorizing Provider: VESTA STALLWORTH MD The patient has been identified by name and date of : Yes Caregiver verified no other encounters exist for this prescription request: Yes Caregiver confirmed with patient/requestor that no other refills are due, in the near future, with this provider at this time: Yes The last office visit in the department: 11/23/2023 Does the patient have a future office visit with this provider/department: Yes 06/05/2024 Requested Prescriptions Pending Prescriptions Disp Refills ALPRAZolam (XANAX) 1 mg tablet 30 tablet 0 Sig: Take 1 tablet by mouth once daily as needed for anxiety for up to 30 days. Edna Brown LPN March 29, 2024 8:31 AM documented in this encounter [facility] 03-29-2024 Telephone encounter Note The patient has been identified by name and date of : Yes Caregiver verified no other encounters exist for this prescription request: Yes Caregiver confirmed with patient/requestor that no other refills are due, in the near future, with this provider at this time: Yes The last office visit in the department: 11/23/2023 Does the patient have a future office visit with this provider/department: Yes 06/05/2024 Requested Prescriptions Pending Prescriptions Disp Refills ALPRAZolam (XANAX) 1 mg tablet 30 tablet 0 Sig: Take 1 tablet by mouth once daily as needed for anxiety for up to 30 days. Edna Brown LPN March 29, 2024 8:31 AM [facility] 02-17-2024 Telephone encounter Note Gallo Carmona - is there a phone number to call back? We specifically put [address], but will just place another one now with no dates on it. One order is scheduled for his follow up in October and the other was to be used today. I'm not sure what the issue is. Can you please call radiology back and explain? [facility] 02-17-2024 Miscellaneous Notes Gallo Carmona - is there a phone number to call back? We specifically put [address], but will just place another one now with no dates on it. One order is scheduled for his follow up in October and the other was to be used today. I'm not sure what the issue is. Can you please call radiology back and explain? Radiology needs new orders for Gala, they are not able to schedule from the orders in [facility]. Kristine documented in this encounter [facility] 02-17-2024 Telephone encounter Note Radiology needs new orders for Gala, they are not able to schedule from the orders in [facility]. Kristine [facility] 02-17-2024 Note HNO ID: [id number] Author: MARYA WILD RN Service: ? Author Type: Registered Nurse Type: Progress Notes Filed: 02/17/2024 08:50 Note Text: I served as a scribe during this office visit encounter. Marya Wild RN [facility] 02-17-2024 History of Present illness Narrative I served as a scribe during this office visit encounter. 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 He is here today for clinical check. He is now 4mo s/p right BHR. He saw Tereza about a month ago after reaching out to our office about right sided knee pain and wanting to check in on his progress related to his hip. Today, he feels things hurt more now than they did preoperatively. And he never had knee pain until after surgery. Knee pain is lateral and then also has discomfort down lateral lower leg. His knee is popping. We did obtain knee x-rays last month. He continues in PT for his hip. Going a couple times a week and then to the gym on his own. If he twists he feels like an ice pick in his lateral hip. He is able to do PT, but has pain. He does have some groin pain, but feels this is most infrequent occurring. He is icing and stretching. He is taking Celebrex daily. Sleeping on his operative side is still uncomfortable. Exam: RLE ROM 0 - 100 degrees, painless. No swelling Well-healed incision. Limb Lengths are equal Abductor Strength is 5/5 -- He points over his tensor fascia debra muscle belly over his anterior/lateral proximal thigh. He also has pain over the anterolateral aspect of his knee, over the lateral retinaculum. No patellar compression pain. Able to do SLR without difficulty. He has no pain with 90/90 resisted hip flexion. 5/5 quad strength. Today he has no TTP over his psoas, Gtbursa and Itband. Knee ROM is 0-120 painless. Some slight TTP over the pes bursa but is certainly more tender over his ITBand insertion. No effusion, no reproducible pain at the joint line with rotation/pivot maneuvers, ligamentously stable to provocative testing Ambulates in today without a limp, assist device - None Imaging: No new imaging obtained today. 01/17/2024 Right Knee plain films reviewed. Unremarkable views of the right knee. Joint spaces are maintained. No joint effusion. No concern for acute bony abnormality. 12/01/23 Right Hip Plain Films have been reviewed. Again seen is postsurgical change of resurfacing right hip arthroplasty with satisfactory alignment with intact hardware. No acute fracture. Postoperative soft tissue gas has resolved. Remainder unchanged. These images will serve as baseline images moving forward. A/P: Mr. Yun is a 43-year-old male who is just over 4 months out from a right hip resurfacing. He is having intermittent groin and lateral thigh pain. He failed hip arthroscopy on the right side, never really getting any pain relief. Today, he has a negative intra-articular exam today. He has no effusion. He has a completely benign exam today without pain in the hip with provocative testing. He has some pain with internal rotation of his hip when the leg is fully straight, over the anterior/lateral thigh. When this occurs at home he describes it as a knifelike pain that is 10/10. He is back to work. He is taking Celebrex. - RTC at his 1 year follow up visit, with x-rays at that time. OK to communicate on [employer]. - Wound appears pristine - Medication Rx's given today: Celebrex --he can continue to take this on an as needed basis. He is not sure this is working. I would be happy to switch him to a different anti-inflammatory in the future to see if there is better effect. - I do not have concern for prosthetic joint infection based on exam. - He does not have any clear story for meniscal pathology, other than perhaps leg positioning/maneuvering during the Procedure (clicking, popping, anterolateral knee pain is new since his surgery). He Does Not Have Any Joint Line Pain without Effusion or Trauma History Is Hard to Reconcile a Potential Meniscus Tear at This Time. He Also Points over the Distal IT Band and the Proximal TFL Muscle Belly. I Suspect That Stretching and Core Strengthening Is the Most Appropriate Avenue at This Point. If He Does Develop Persistent Pain, or Effusion in His Knee, Then an MRI without Contrast of the Knee Would Be Next Step. - Continue PT/HEP. Discussed focus on core strengthening and ITBand stretching. - HRA activity packet reviewed today. No high impact activity x1 year. - Reminded of dental prophylaxis precautions Months post-op: ~4 months I spent a total of 30 minutes on the date of the service which included [id number] patient care, completing clinical documentation, obtaining and/or reviewing separately obtained history, performing a medically appropriate examination, counseling and educating the patient/family/caregiver, ordering medications, tests, or procedures, independently interpreting results (not separately reported), and communicating results to the patient/family/caregiver. The counseled portion is detailed in the plan, as above, that I have personally verified and edited as appropriate. Any information added by medical student, resident, nurse, STEAM BOILER FIREMAN/PANathalyC that I have placed my signature directly below I have verified and either instructed them to document in a scribe function or document appropriately in the chart during the patient visit. Holland Mo MD journeyman mechanic, CCLCM at [facility] Musculoskeletal Oncologist and Total Hip/Knee Surgeon February 17, 2024 8:48 AM documented in this encounter [facility] 02-17-2024 Note HNO ID: [id number] Author: HOLLAND MO MD Service: ? 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 He is here today for clinical check. He is now 4mo s/p right BHR. He saw Tereza about a month ago after reaching out to our office about right sided knee pain and wanting to check in on his progress related to his hip. Today, he feels things hurt more now than they did preoperatively. And he never had knee pain until after surgery. Knee pain is lateral and then also has discomfort down lateral lower leg. His knee is popping. We did obtain knee x-rays last month. He continues in PT for his hip. Going a couple times a week and then to the gym on his own. If he twists he feels like an ice pick in his lateral hip. He is able to do PT, but has pain. He does have some groin pain, but feels this is most infrequent occurring. He is icing and stretching. He is taking Celebrex daily. Sleeping on his operative side is still uncomfortable. Exam: RLE ROM 0 - 100 degrees, painless. No swelling Well-healed incision. Limb Lengths are equal Abductor Strength is 5/5 -- He points over his tensor fascia debra muscle belly over his anterior/lateral proximal thigh. He also has pain over the anterolateral aspect of his knee, over the lateral retinaculum. No patellar compression pain. Able to do SLR without difficulty. He has no pain with 90/90 resisted hip flexion. 5/5 quad strength. Today he has no TTP over his psoas, Gtbursa and Itband. Knee ROM is 0-120 painless. Some slight TTP over the pes bursa but is certainly more tender over his ITBand insertion. No effusion, no reproducible pain at the joint line with rotation/pivot maneuvers, ligamentously stable to provocative testing Ambulates in today without a limp, assist device - None Imaging: No new imaging obtained today. 01/17/2024 Right Knee plain films reviewed. Unremarkable views of the right knee. Joint spaces are maintained. No joint effusion. No concern for acute bony abnormality. 12/01/23 Right Hip Plain Films have been reviewed. Again seen is postsurgical change of resurfacing right hip arthroplasty with satisfactory alignment with intact hardware. No acute fracture. Postoperative soft tissue gas has resolved. Remainder unchanged. These images will serve as baseline images moving forward. A/P: Mr. Yun is a 43-year-old male who is just over 4 months out from a right hip resurfacing. He is having intermittent groin and lateral thigh pain. He failed hip arthroscopy on the right side, never really getting any pain relief. Today, he has a negative intra-articular exam today. He has no effusion. He has a completely benign exam today without pain in the hip with provocative testing. He has some pain with internal rotation of his hip when the leg is fully straight, over the anterior/lateral thigh. When this occurs at home he describes it as a knifelike pain that is 10/10. He is back to work. He is taking Celebrex. - RTC at his 1 year follow up visit, with x-rays at that time. OK to communicate on MyChart. - Wound appears pristine - Medication Rx's given today: Celebrex --he can continue to take this on an as needed basis. He is not sure this is working. I would be happy to switch him to a different anti-inflammatory in the future to see if there is better effect. - I do not have concern for prosthetic joint infection based on exam. - He does not have any clear story for meniscal pathology, other than perhaps leg positioning/maneuvering during the Procedure (clicking, popping, anterolateral knee pain is new since his surgery). He Does Not Have Any Joint Line Pain without Effusion or Trauma History Is Hard to Reconcile a Potential Meniscus Tear at This Time. He Also Points over the Distal IT Band and the Proximal TFL Muscle Belly. I Suspect That Stretching and Core Strengthening Is the Most Appropriate Avenue at This Point. If He Does Develop Persistent Pain, or Effusion in His Knee, Then an MRI without Contrast of the Knee Would Be Next Step. - Continue PT/HEP. Discussed focus on core strengthening and ITBand stretching. - HRA activity packet reviewed today. No high impact activity x1 year. - Reminded of dental prophylaxis precautions Months post-op: ~4 months I spent a total of 30 minutes on the date of the service which included [id number] patient care, completing clinical documentation, obtainin (more content not included)... [facility] 01-26-2024 Telephone encounter Note Patient's request for medication is as follows: Requested Prescriptions Signed Prescriptions Disp Refills baclofen 10 mg tablet 90 tablet 0 Sig: take 1 tablet by mouth three times a day if needed muscle spasm Authorizing Provider: HEATHER DIEGO Prescription(s) as above. Please process accordingly. Heather Diego PA-C [facility] 01-26-2024 Miscellaneous Notes Patient's request for medication is as follows: Requested Prescriptions Signed Prescriptions Disp Refills baclofen 10 mg tablet 90 tablet 0 Sig: take 1 tablet by mouth three times a day if needed muscle spasm Authorizing Provider: HEATHER DIEGO Prescription(s) as above. Please process accordingly. Heather Diego PA-C documented in this encounter [facility] 01-19-2024 Telephone encounter Note Patient has been identified by name and date of : Yes Patient phones for refill(s): Requested Prescriptions Pending Prescriptions Disp Refills ALPRAZolam (XANAX) 1 mg tablet 30 tablet 0 Sig: Take 1 tablet by mouth once daily as needed for anxiety for up to 30 days. Date of last office visit in primary care: 11/23/2023 Date of next office visit in primary care: 06/05/2024 Please advise. Thank you. Judy Box LPN. [facility] 01-19-2024 Miscellaneous Notes Patient has been identified by name and date of : Yes Patient phones for refill(s): Requested Prescriptions Pending Prescriptions Disp Refills ALPRAZolam (XANAX) 1 mg tablet 30 tablet 0 Sig: Take 1 tablet by mouth once daily as needed for anxiety for up to 30 days. Date of last office visit in primary care: 11/23/2023 Date of next office visit in primary care: 06/05/2024 Please advise. Thank you. Judy Box LPN. documented in this encounter [facility] 01-17-2024 Note HNO ID: [id number] Author: HEATHER DIEGO PA-C Service: ? 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 He is here today for clinical check. He also had xrays completed of his right knee due to concern of pain. He had recently reached out to our office last week with a concern of regression of his progress. He wanted to verify everything was ok with his hip. He is just over 3 months post-op. He describes shooting pain in the leg. This occurs in the right groin. This is intermittent. It typically only happens with flexion. He also has concerns of his ipsilateral knee. He states that this has buckled on him at physical therapy. Walking has caused him some discomfort at his knee. He has had some difficulty sleeping. He is typically a side sleeper and is having pain lying on his right side. He notes that he has been trying icing. He continues to stretch 3 times per day. He started naproxen per his conversation with Manoj on 01/10/2024 and this has helped relieve some of his symptoms. He denies any persistent groin pain today. He has no fevers, chills, issues with his incision. Exam: RLE ROM 0 - 100 degrees, painless. Mild swelling appropriate for post-op. Well-healed incision. There is no expressible drainage from the incision. No surrounding erythema or cellulitis. Limb Lengths are equal Abductor Strength is 5/5 Able to do SLR without difficulty 5/5 quad strength. TTP over his psoas, Gtbursa and Itband. Knee ROM is 0-120 painless. Some slight TTP over the pes bursa but is certainly more tender over his ITBand insertion. Ambulates in today without a limp, assist device - crutches - 50% weightbearing. Imagin01/17/2024 Right Knee plain films reviewed. Unremarkable views of the right knee. Joint spaces are maintained. No joint effusion. No concern for acute bony abnormality. 12/01/23 Right Hip Plain Films have been reviewed. Again seen is postsurgical change of resurfacing right hip arthroplasty with satisfactory alignment with intact hardware. No acute fracture. Postoperative soft tissue gas has resolved. Remainder unchanged. These images will serve as baseline images moving forward. A/P: Mr. Yun is a 43-year-old male who is just over 3 months out from a right hip resurfacing. He is having intermittent groin and lateral thigh pain. He has a negative intra-articular exam today. His symptoms are reproducible with palpation of the greater trochanteric bursa and the psoas tendon. No incision changes. Low suspicion for infection today. - RTC at his 1 year follow up visit, with x-rays at that time. OK to communicate on [employer]. - Wound appears pristine, steristrips removed - OK to shower/bathe - Medication Rx's given today: Celebrex - DVT ppx: Completed course of ASA after 4 weeks - Completed Iron + Vitamin C after 4 weeks post-op - Continue PT/HEP. Discussed focus on core strengthening and ITBand stretching. - HRA activity packet reviewed today. No high impact activity x1 year. - Reminded of dental prophylaxis precautions Months post-op: 12w 5d Heather Diego PA-C Attending: Dr. Holland Mo [facility] [place] Department of Orthopedic Surgery Adult Reconstruction AND Musculoskeletal Oncology 01/17/2024 2:32 PM 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 He is here today for clinical check. He also had xrays completed of his right knee due to concern of pain. He had recently reached out to our office last week with a concern of regression of his progress. He wanted to verify everything was ok with his hip. He is just over 3 months post-op. He describes shooting pain in the leg. This occurs in the right groin. This is intermittent. It typically only happens with flexion. He also has concerns of his ipsilateral knee. He states that this has buckled on him at physical therapy. Walking has caused him some discomfort at his knee. He has had some difficulty sleeping. He is typically a side sleeper and is having pain lying on his right side. He notes that he has been trying icing. He continues to stretch 3 times per day. He started naproxen per his conversation with Manoj on 01/10/2024 and this has helped relieve some of his symptoms. He denies any persistent groin pain today. He has no fevers, chills, issues with his incision. Exam: RLE ROM 0 - 100 degrees, painless. Mild swelling appropriate for post-op. Well-healed incision. There is no expressible drainage from the incision. No surrounding erythema or cellulitis. Limb Lengths are equal Abductor Strength is 5/5 Able to do SLR without difficulty 5/5 quad strength. TTP over his psoas, Gtbursa and Itband. Knee ROM is 0-120 painless. Some slight TTP over the pes bursa but is certainly more tender over his ITBand insertion. Ambulates in today without a limp, assist device - crutches - 50% weightbearing. Imagin01/17/2024 Right Knee plain films reviewed. Unremarkable views of the right knee. Joint spaces are maintained. No joint effusion. No concern for acute bony abnormality. 12/01/23 Right Hip Plain Films have been reviewed. Again seen is postsurgical change of resurfacing right hip arthroplasty with satisfactory alignment with intact hardware. No acute fracture. Postoperative soft tissue gas has resolved. Remainder unchanged. These images will serve as baseline images moving forward. A/P: Mr. Yun is a 43-year-old male who is just over 3 months out from a right hip resurfacing. He is having intermittent groin and lateral thigh pain. He has a negative intra-articular exam today. His symptoms are reproducible with palpation of the greater trochanteric bursa and the psoas tendon. No incision changes. Low suspicion for infection today. - RTC at his 1 year follow up visit, with x-rays at that time. OK to communicate on [employer]. - Wound appears pristine, steristrips removed - OK to shower/bathe - Medication Rx's given today: Celebrex - DVT ppx: Completed course of ASA after 4 weeks - Completed Iron + Vitamin C after 4 weeks post-op - Continue PT/HEP. Discussed focus on core strengthening and ITBand stretching. - HRA activity packet reviewed today. No high impact activity x1 year. - Reminded of dental prophylaxis precautions Months post-op: 12w 5d Heather Diego PA-C Attending: Dr. Holland Mo [facility] Department of Orthopedic Surgery Adult Reconstruction & Musculoskeletal Oncology 01/17/2024 2:32 PM documented in this encounter [facility] 01-17-2024 History of Present illness Narrative Radiology Service Progress Note PATIENT NAME: Gala Yun DATE OF SERVICE: January 17, 2024 TIME: 1:53 PM PATIENT IDENTITY VERIFICATION COMPLETED USING TWO (2) IDENTIFIERS: Name and Date of confirmed by patient verbally. FALL SCREENING: Has the patient had 2 falls in the last year or 1 fall with injury or currently using an Ambulatory Assistive Device (Walker, Cane, Wheelchair, Crutches, etc.)? No PATIENT GENDER DATA: Male PATIENT RELEVANT IMPLANT DATA REVIEWED: Not Applicable PATIENT PRESENTS WITH AN IMPLANTABLE OR ATTACHED STUCCO MASON: No RADIOLOGY DEPARTMENT: General X-ray: Exam(s) Completed: Lower Extremity X-Ray(s): Knee, AP / Lat / Tunne / Merchant Right PERIPHERAL IV DATA: Not applicable SIGNED BY: NADYA Guo) January 17, 2024 1:53 PM documented in this encounter [facility] 01-17-2024 Note HNO ID: [id number] Author: COLT CHAMBERLAIN RT(R) Service: ? Author Type: Automatic Head Sawyer Type: Progress Notes Filed: 01/17/2024 13:54 Note Text: Radiology Service Progress Note PATIENT NAME: Gala Yun DATE OF SERVICE: January 17, 2024 TIME: 1:53 PM PATIENT IDENTITY VERIFICATION COMPLETED USING TWO (2) IDENTIFIERS: Name and Date of confirmed by patient verbally. FALL SCREENING: Has the patient had 2 falls in the last year or 1 fall with injury or currently using an Ambulatory Assistive Device (Walker, Cane, Wheelchair, Crutches, etc.)? No PATIENT GENDER DATA: Male PATIENT RELEVANT IMPLANT DATA REVIEWED: Not Applicable PATIENT PRESENTS WITH AN IMPLANTABLE OR ATTACHED STUCCO MASON: No RADIOLOGY DEPARTMENT: General X-ray: Exam(s) Completed: Lower Extremity X-Ray(s): Knee, AP / Lat / Tunne / Merchant Right PERIPHERAL IV DATA: Not applicable SIGNED BY: RT Brant(R) January 17, 2024 1:53 PM [facility] 01-10-2024 Telephone encounter Note Call returned, spoke with Gala. Things have been a bit more uncomfortable the last couple weeks for him, after recovery had initially been going well. He continues in outpatient PT twice weekly, also doing exercises, stretching, walking, and icing at home. He states his Celebrex ran out a couple of weeks ago, also around the same time that he traveled to [place] and was doing a lot of walking at this time. He didn't really think anything of it if he started having more of this issue after that. He is now experiencing sharp pain in his groin, hip and knee. While at PT today his knee buckled. Notices this issue more when ambulating/weightbearing. He also reports that sleeping on either side has become more painful, as well. He's wanting to verify if all of this sounds normal and appropriate for his recovery timeline. I have recommended getting him back on an NSAID daily to see if that can help try to calm things down. He will take Aleve BID or Advil 400-600mg TID - either with food or milk. He will do this daily for the next week. If OTC doesn't help we can discuss putting him back on Celebrex. He does also continue to take Baclofen at night - having spasms/restless leg at night. I have offered him to come in to see Tereza for exam next week, he accepted. We can also plan to get baseline x-rays of his right knee - not sure if he is having a separate issue with that. He appreciated the follow up. [facility] 01-10-2024 Miscellaneous Notes Call returned, spoke with Gala. Things have been a bit more uncomfortable the last couple weeks for him, after recovery had initially been going well. He continues in outpatient PT twice weekly, also doing exercises, stretching, walking, and icing at home. He states his Celebrex ran out a couple of weeks ago, also around the same time that he traveled to [place] and was doing a lot of walking at this time. He didn't really think anything of it if he started having more of this issue after that. He is now experiencing sharp pain in his groin, hip and knee. While at PT today his knee buckled. Notices this issue more when ambulating/weightbearing. He also reports that sleeping on either side has become more painful, as well. He's wanting to verify if all of this sounds normal and appropriate for his recovery timeline. I have recommended getting him back on an NSAID daily to see if that can help try to calm things down. He will take Aleve BID or Advil 400-600mg TID - either with food or milk. He will do this daily for the next week. If OTC doesn't help we can discuss putting him back on Celebrex. He does also continue to take Baclofen at night - having spasms/restless leg at night. I have offered him to come in to see Tereza for exam next week, he accepted. We can also plan to get baseline x-rays of his right knee - not sure if he is having a separate issue with that. He appreciated the follow up. Patient called today complaining of pain. Pain location: Right Hip Have you had surgery on this body part? Right Hip Resurfacing on 10/20/23 When did the pain start? Started mid December, it just progressively started getting worse. At first he noticed he wasn't sleeping as well then dull pain, then progressed into pain that shoots from hip to groin into his knee. Now anytime he bears weight he is feeling pain, at PT today his leg buckled underneath him Was this caused by an injury, fall, etc? No Is there swelling or redness of the affected area? No What have you done to try to decrease the pain? Icing, takes two tylenol every morning, does physical therapy exercises Follow up appt scheduled, if needed? 02/17/2024 Phone number to call back, if needed? Verify preferred pharmacy, if medications need to be sent. [facility] [address] [place] [address] documented in this encounter [facility] 01-10-2024 Telephone encounter Note Patient called today complaining of pain. Pain location: Right Hip Have you had surgery on this body part? Right Hip Resurfacing on 10/20/23 When did the pain start? Started mid December, it just progressively started getting worse. At first he noticed he wasn't sleeping as well then dull pain, then progressed into pain that shoots from hip to groin into his knee. Now anytime he bears weight he is feeling pain, at PT today his leg buckled underneath him Was this caused by an injury, fall, etc? No Is there swelling or redness of the affected area? No What have you done to try to decrease the pain? Icing, takes two tylenol every morning, does physical therapy exercises Follow up appt scheduled, if needed? 02/17/2024 Phone number to call back, if needed? Verify preferred pharmacy, if medications need to be sent. [facility] [address] [place] [address] [facility] 12-26-2023 Nurse Note Ambulatory Ear Lavage Pre-treatment: Warm water Treatment: Right ear Equipment and Irrigation solution and Volume used: Single use syringe with single use irrigation tip Water Return flow appearance: Brown Yellow Patient tolerated procedure: yes Tympanic membrane assessment: Tympanic membrane assessed by LIP pre and post procedure Ave Barros MA [facility] 12-26-2023 Instructions Mi Taveras APRN.CNP - 12/26/2023 2:06 PM EDT Use may use OTC Debrox or Cerumenex once a month for maintenance. Avoid inserting Q-tips into your ears. Follow up with your PCP as needed. documented in this encounter [facility] 12-26-2023 Nurse Note Ambulatory Ear Lavage Pre-treatment: Warm water Treatment: Right ear Equipment and Irrigation solution and Volume used: Single use syringe with single use irrigation tip Water Return flow appearance: Brown Yellow Patient tolerated procedure: yes Tympanic membrane assessment: Tympanic membrane assessed by LIP pre and post procedure Ave Barros MA documented in this encounter [facility] 12-26-2023 Note HNO ID: [id number] Author: MI TAVERAS APRN.KRISTINA Service: ? Author Type: Nurse Practitioner Type: Progress Notes Filed: 12/26/2023 14:07 Note Text: Subjective The history is provided by the patient. No conference interpreter was used. HPI Gala Yun is a 43 year old male who presents today for CC of possible wax in right ear. He used drops, as well as flushing ear with out relief. He has an appointment Tuesday with ENT. BP 122/72 Pulse 98 Temp 36.4 ?C (97.5 ?F) Resp 16 Wt 109.4 kg (241 lb 2.9 oz) SpO2 98% BMI 27.88 kg/m? Social History Tobacco Use Smoking status: Former Smokeless tobacco: Never Vaping Use Vaping status: Never Used Substance Use Topics Alcohol use: Not Currently Comment: 1-2 times a week Drug use: Yes Frequency: 3.0 times per week Types: Marijuana Comment: Several times per week PAST MEDICAL HISTORY Diagnosis Date Atypical chest pain 07/17/2015 Diabetes (HCC) Elevated bilirubin ?chronic versus intermittent mild elevation sicne childhood--benign condition Hyperlipidemia Kidney stone on left side had to have blasted and stented (treated Dr. Mittal) Vitamin D deficiency I have confirmed and edited as necessary, the [facility] Review of Systems Constitutional: Negative for chills and fever. HENT: Positive for ear pain. Negative for congestion, sinus pain and sore throat. Respiratory: Negative for cough. Musculoskeletal: Negative for joint pain and myalgias. Skin: Negative for itching and rash. All other systems reviewed and are negative. Objective Physical Exam Vitals and nursing note reviewed. HENT: Right Ear: Tympanic membrane, ear canal and external ear normal. There is impacted cerumen. Left Ear: Tympanic membrane, ear canal and external ear normal. Ears: Comments: Lavage done of right ear by Damon Barros, patient tolerated well, able to see TM - see exam Pulmonary: Effort: Pulmonary effort is normal. Skin: General: Skin is warm and dry. Neurological: Mental Status: He is alert and oriented to person, place, and time. Psychiatric: Mood and Affect: Affect normal. Ambulatory Ear Lavage Pre-treatment: Warm water Treatment: Right ear Equipment and Irrigation solution and Volume used: Single use syringe with single use irrigation tip Water Return flow appearance: Brown Patient tolerated procedure: yes Tympanic membrane assessment: Tympanic membrane assessed by LIP pre and post procedure ASSESSMENT/PLAN: 1. Impacted cerumen of right ear - ICD9: 380.4, ICD10: H61.21 Debrox Avoid use of qtips - AMBULATORY EAR LAVAGE/IRRIGATION Diagnosis and treatment plan were discussed and questions were answered to the patient's satisfaction. Pt acknowledged understanding of concepts and follow up plan. Specific signs and symptoms that would indicate the need for higher level of care were discussed in detail warranting prompt ER evaluation. Mi Taveras APRN.[facility] 12-26-2023 History of Present illness Narrative Subjective The history is provided by the patient. No conference interpreter was used. HPI Gala Yun is a 43 year old male who presents today for CC of possible wax in right ear. He used drops, as well as flushing ear with out relief. He has an appointment Tuesday with ENT. BP 122/72 Pulse 98 Temp 36.4 C (97.5 F) Resp 16 Wt 109.4 kg (241 lb 2.9 oz) SpO2 98% BMI 27.88 kg/m Social History Tobacco Use Smoking status: Former Smokeless tobacco: Never Vaping Use Vaping status: Never Used Substance Use Topics Alcohol use: Not Currently Comment: 1-2 times a week Drug use: Yes Frequency: 3.0 times per week Types: Marijuana Comment: Several times per week PAST MEDICAL HISTORY Diagnosis Date Atypical chest pain 07/17/2015 Diabetes (HCC) Elevated bilirubin ?chronic versus intermittent mild elevation sicne childhood--benign condition Hyperlipidemia Kidney stone on left side had to have blasted and stented (treated Dr. Mittal) Vitamin D deficiency I have confirmed and edited as necessary, the [facility] Review of Systems Constitutional: Negative for chills and fever. HENT: Positive for ear pain. Negative for congestion, sinus pain and sore throat. Respiratory: Negative for cough. Musculoskeletal: Negative for joint pain and myalgias. Skin: Negative for itching and rash. All other systems reviewed and are negative. Objective Physical Exam Vitals and nursing note reviewed. HENT: Right Ear: Tympanic membrane, ear canal and external ear normal. There is impacted cerumen. Left Ear: Tympanic membrane, ear canal and external ear normal. Ears: Comments: Lavage done of right ear by Damon Barros, patient tolerated well, able to see TM - see exam Pulmonary: Effort: Pulmonary effort is normal. Skin: General: Skin is warm and dry. Neurological: Mental Status: He is alert and oriented to person, place, and time. Psychiatric: Mood and Affect: Affect normal. Ambulatory Ear Lavage Pre-treatment: Warm water Treatment: Right ear Equipment and Irrigation solution and Volume used: Single use syringe with single use irrigation tip Water Return flow appearance: Brown Patient tolerated procedure: yes Tympanic membrane assessment: Tympanic membrane assessed by LIP pre and post procedure ASSESSMENT/PLAN: 1. Impacted cerumen of right ear - ICD9: 380.4, ICD10: H61.21 Debrox Avoid use of qtips - AMBULATORY EAR LAVAGE/IRRIGATION Diagnosis and treatment plan were discussed and questions were answered to the patient's satisfaction. Pt acknowledged understanding of concepts and follow up plan. Specific signs and symptoms that would indicate the need for higher level of care were discussed in detail warranting prompt ER evaluation. Mi Taveras APRN.KRISTINA documented in this encounter [facility] 12-26-2023 Telephone encounter Note Patient's request for medication is as follows: Requested Prescriptions Signed Prescriptions Disp Refills baclofen 10 mg tablet 90 tablet 0 Sig: take 1 tablet by mouth three times a day if needed muscle spasm Authorizing Provider: HEATHER DIEGO Prescription(s) as above. Please process accordingly. Heather Diego PA-C [facility] 12-26-2023 Miscellaneous Notes Patient's request for medication is as follows: Requested Prescriptions Signed Prescriptions Disp Refills baclofen 10 mg tablet 90 tablet 0 Sig: take 1 tablet by mouth three times a day if needed muscle spasm Authorizing Provider: HEATHER DIEGO Prescription(s) as above. Please process accordingly. Heather Diego PA-C documented in this encounter [facility] 12-12-2023 Telephone encounter Note Prescription Refill Information The patient has been identified by name and date of : Yes Caregiver verified no other encounters exist for this prescription request: Yes Caregiver confirmed with patient/requestor that no other refills are due, in the near future, with this provider at this time: Yes The last office visit in the department: 11/23/23 Does the patient have a future office visit with this provider/department: Yes 06/05/24 Requested Prescriptions Pending Prescriptions Disp Refills alfuzosin SR (UROXATRAL) 10 mg 24 hr tablet 90 tablet 3 Sig: Take 1 tablet by mouth daily at bedtime. Kate Sarah LPN December 12, 2023 9:25 AM [facility] 12-12-2023 Miscellaneous Notes Prescription Refill Information The patient has been identified by name and date of : Yes Caregiver verified no other encounters exist for this prescription request: Yes Caregiver confirmed with patient/requestor that no other refills are due, in the near future, with this provider at this time: Yes The last office visit in the department: 11/23/23 Does the patient have a future office visit with this provider/department: Yes 06/05/24 Requested Prescriptions Pending Prescriptions Disp Refills alfuzosin SR (UROXATRAL) 10 mg 24 hr tablet 90 tablet 3 Sig: Take 1 tablet by mouth daily at bedtime. Kate Sarah LPN December 12, 2023 9:25 AM documented in this encounter [facility] 12-01-2023 [facility]phone encounter [facility] All prescriptions have been APPROPRIATELY filled. No suspicious activity was identified. 12/01/2023 by Heather Diego PA-C Patient's request for medication is as follows: Requested Prescriptions Signed Prescriptions Disp Refills baclofen 10 mg tablet 90 tablet 0 Sig: Take 1 tablet by mouth three times a day as needed (muscle spasms). Authorizing Provider: HEATHER DIEGO oxyCODONE IR (ROXICODONE) 5 mg immediate release tablet 28 tablet 0 Sig: Take 1 tablet by mouth every 6 hours as needed for up to 7 days. Authorizing Provider: HEATHER DIEGO Prescription(s) as above. Please process accordingly. Heather Diego PA-C [facility] 12-01-2023 Miscellaneous Notes [facility] All prescriptions have been APPROPRIATELY filled. No suspicious activity was identified. 12/01/2023 by Heather Diego PA-C Patient's request for medication is as follows: Requested Prescriptions Signed Prescriptions Disp Refills baclofen 10 mg tablet 90 tablet 0 Sig: Take 1 tablet by mouth three times a day as needed (muscle spasms). Authorizing Provider: HEATHER DIEGO oxyCODONE IR (ROXICODONE) 5 mg immediate release tablet 28 tablet 0 Sig: Take 1 tablet by mouth every 6 hours as needed for up to 7 days. Authorizing Provider: HEATHER DIEGO Prescription(s) as above. Please process accordingly. Heather Diego PA-C Patient seen for post-op visit today, 6 weeks s/p right BHR. Requesting refills of Oxycodone (taking at bedtime) and Baclofen. Rx's to be e-scripted to [facility] in [place]. Routed to STACY to file. documented in this encounter [facility] 12-01-2023 Telephone encounter Note Patient seen for post-op visit today, 6 weeks s/p right BHR. Requesting refills of Oxycodone (taking at bedtime) and Baclofen. Rx's to be e-scripted to [facility] in [place]. Routed to STACY to file. 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 He is here today for x-rays and clinical check. He has been continuing with the HEP. Slower start initially due to knee swelling and pain making it difficult for him to do knee to chest exercises, as well. He is primarily taking Tylenol during the day. Oxycodone at night. He has run out of Baclofen and would like a refill of this today. Taking Celebrex 100mg BID. Recovery has been a different pain than he had preop. But feels he's improving as far as movement. Eager to get moving. No reported issues with regard to his incision. Ambulating with 2 crutches. Completed ASA course for DVT ppx. Exam: RLE ROM 0 - 100 degrees, painless. Mild swelling appropriate for post-op . There is no expressible drainage from the incision. No surrounding erythema or cellulitis. Limb Lengths are equal Abductor Strength is 3/5 Able to do SLR without difficulty 4/5 quad strength. Ambulates in today without a limp, assist device - crutches - 50% weightbearing. Imagin12/01/23 Right Hip Plain Films have been reviewed per radiologist's report. Again seen is postsurgical change of resurfacing right hip arthroplasty with satisfactory alignment with intact hardware. No acute fracture. Postoperative soft tissue gas has resolved. Remainder unchanged. These images will serve as baseline images moving forward. A/P: - RTC 10-12 weeks for clinical check with Dr. Mo or Tereza Diego. No x-rays necessary. If they feel things are going well at that time and don't need to come in for a visit, OK to send us a [employer] message and cancel the visit. We can then get them set up for a 1 year follow up visit, with x-rays at that time (order will need to be placed). OK to communicate on [employer]. - Wound appears pristine, steristrips removed - OK to shower/bathe - Medication Rx's given today: will refill Baclofen + Oxy - DVT ppx: Completed course of ASA after 4 weeks - Completed Iron + Vitamin C after 4 weeks post-op - Script given for PT --> direct lateral/BHR protocol, OK to progress to WBAT, OK for abduction against gravity - Reminded of dental prophylaxis precautions - Discussed return to driving instructions --> OK to drive so long as the patient is off narcotics and is able to defensively drive. Re-directed to our pre-operative surgical packet. - Copy of operative report given to patient today. - Complete 8 week Celebrex course - HRA activity packet reviewed/provided today. No high impact activity x1 year. - Completed 3 week Doxycycline course Months post-op: 6 weeks Patient seen under the supervision of Dr. Migue Ramon. Marya Wild RN --> nurse to Dr. Holland Mo December 01, 2023 2:00 PM documented in this encounter [facility] 12-01-2023 Note HNO ID: [id number] Author: MARYA WILD RN Service: ? 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 He is here today for x-rays and clinical check. He has been continuing with the HEP. Slower start initially due to knee swelling and pain making it difficult for him to do knee to chest exercises, as well. He is primarily taking Tylenol during the day. Oxycodone at night. He has run out of Baclofen and would like a refill of this today. Taking Celebrex 100mg BID. Recovery has been a different pain than he had preop. But feels he's improving as far as movement. Eager to get moving. No reported issues with regard to his incision. Ambulating with 2 crutches. Completed ASA course for DVT ppx. Exam: RLE ROM 0 - 100 degrees, painless. Mild swelling appropriate for post-op . There is no expressible drainage from the incision. No surrounding erythema or cellulitis. Limb Lengths are equal Abductor Strength is 3/5 Able to do SLR without difficulty 4/5 quad strength. Ambulates in today without a limp, assist device - crutches - 50% weightbearing. Imagin12/01/23 Right Hip Plain Films have been reviewed per radiologist's report. Again seen is postsurgical change of resurfacing right hip arthroplasty with satisfactory alignment with intact hardware. No acute fracture. Postoperative soft tissue gas has resolved. Remainder unchanged. These images will serve as baseline images moving forward. A/P: - RTC 10-12 weeks for clinical check with Dr. Mo or Tereza Diego. No x-rays necessary. If they feel things are going well at that time and don't need to come in for a visit, OK to send us a [employer] message and cancel the visit. We can then get them set up for a 1 year follow up visit, with x-rays at that time (order will need to be placed). OK to communicate on [employer]. - Wound appears pristine, steristrips removed - OK to shower/bathe - Medication Rx's given today: will refill Baclofen + Oxy - DVT ppx: Completed course of ASA after 4 weeks - Completed Iron + Vitamin C after 4 weeks post-op - Script given for PT --> direct lateral/BHR protocol, OK to progress to WBAT, OK for abduction against gravity - Reminded of dental prophylaxis precautions - Discussed return to driving instructions --> OK to drive so long as the patient is off narcotics and is able to defensively drive. Re-directed to our pre-operative surgical packet. - Copy of operative report given to patient today. - Complete 8 week Celebrex course - HRA activity packet reviewed/provided today. No high impact activity x1 year. - Completed 3 week Doxycycline course Months post-op: 6 weeks Patient seen under the supervision of Dr. Migue Ramon. Marya Wild RN --> nurse to Dr. Holland Mo December 01, 2023 2:00 PM [facility] 12-01-2023 History of Present illness Narrative Radiology Service Progress Note PATIENT NAME: Gala Yun DATE OF SERVICE: December 01, 2023 TIME: 1:31 PM PATIENT IDENTITY VERIFICATION COMPLETED USING TWO (2) IDENTIFIERS: Name and Date of confirmed by patient verbally. FALL SCREENING: Has the patient had 2 falls in the last year or 1 fall with injury or currently using an Ambulatory Assistive Device (Walker, Cane, Wheelchair, Crutches, etc.)? No PATIENT GENDER DATA: Male PATIENT RELEVANT IMPLANT DATA REVIEWED: Not Applicable PATIENT PRESENTS WITH AN IMPLANTABLE OR ATTACHED STUCCO MASON: No RADIOLOGY DEPARTMENT: General X-ray: Exam(s) Completed: Pelvis X-Ray: Pelvis with Hip Right PERIPHERAL IV DATA: Not applicable SIGNED BY: RT Ernesto(Lula) December 01, 2023 1:31 PM documented in this encounter [facility] 12-01-2023 Note HNO ID: [id number] Author: KIM ELMORE RT (R) Service: Radiology Author Type: Technologist Type: Progress Notes Filed: 12/01/2023 13:31 Note Text: Radiology Service Progress Note PATIENT NAME: Gala Yun DATE OF SERVICE: December 01, 2023 TIME: 1:31 PM PATIENT IDENTITY VERIFICATION COMPLETED USING TWO (2) IDENTIFIERS: Name and Date of confirmed by patient verbally. FALL SCREENING: Has the patient had 2 falls in the last year or 1 fall with injury or currently using an Ambulatory Assistive Device (Walker, Cane, Wheelchair, Crutches, etc.)? No PATIENT GENDER DATA: Male PATIENT RELEVANT IMPLANT DATA REVIEWED: Not Applicable PATIENT PRESENTS WITH AN IMPLANTABLE OR ATTACHED STUCCO MASON: No RADIOLOGY DEPARTMENT: General X-ray: Exam(s) Completed: Pelvis X-Ray: Pelvis with Hip Right PERIPHERAL IV DATA: Not applicable SIGNED BY: RT Ernesto(Lula) December 01, 2023 1:31 PM [facility] 11-23-2023 Instructions Vesta Stallworth MD - 11/23/2023 9:50 AM EDT -Continue with your physical therapy exercises as allowed, and consider adding arm exercises or chair yoga to help maintain your overall fitness. - Use your other leg to help maintain nerve impulses and muscle function in the leg that is healing. - Stand as long as your stamina allows, and consider using a stool for support when needed. - Continue taking oxycodone at night as needed for pain, with the goal of phasing it out completely soon. - Refills for alprazolam, lisinopril, metformin, omeprazole, and Lipitor have been sent to your pharmacy. - You have a follow-up appointment with Dr. Zhu next , during which imaging will be performed. - You can get your labs done anytime after December, giving you time away from surgery time to see if your A1C levels have improved. documented in this encounter [facility] 11-23-2023 Note HNO ID: [id number] Author: VESTA STALLWORTH MD Service: ? Author Type: Physician Type: Progress Notes Filed: 01/05/2024 23:39 Note Text: This note was created using [employer]. Subjective Gala Yun is a 43 year old male. Patient presents with: F/U 6 months SUBJECTIVE: Gala Yun is a 43 year old year old gentleman here today for 6 month follow up appointment for review of medical conditions. Patient is a 43-year-old male presenting for medication refills and follow-up after recent hip surgery. Patient reports a history of a cervical disc herniation, which he attributes to years of repetitive neck movements. He describes the pain as severe, stating that it was absent when he remained still but would become intense with movement. Patient recently underwent hip surgery and is currently in the recovery phase. He reports being sedentary for the past month, which he finds challenging due to his active lifestyle and ADHD. He is eager to resume physical activity but is currently limited to light physical therapy exercises. He reports feeling deconditioned and experiences fatigue with minimal activity, such as standing and cutting vegetables. Patient is currently taking oxycodone at night for pain management but hopes to discontinue its use soon. He has also been taking omeprazole 40 mg for heartburn, which he finds effective and is interested in continuing. He has a history of using [id number] Prilosec as needed for heartburn, which is often triggered by spicy foods. He denies nocturnal symptoms. He is also requesting a refill for alprazolam, which he has been using more frequently post-surgery. Patient is also on lisinopril, metformin, and Lipitor, and is requesting refills for these medications. He reports that his blood sugar levels were elevated during his hospital stay, which he attributes to the stress of surgery and being sedentary. He is concerned about his blood sugar levels and is trying to manage them. He denies any current issues with constipation or nerve problems. PAST MEDICAL HISTORY 07/17/2015: Atypical chest pain No date: Diabetes (HCC) No date: Elevated bilirubin Comment: ?chronic versus intermittent mild elevation sicne childhood--benign condition No date: Hyperlipidemia No date: Kidney stone on left side Comment: had to have blasted and stented (treated Dr. Mittal) No date: Vitamin D deficiency Current Outpatient Medications Medication Sig oxyCODONE IR (ROXICODONE) 5 mg immediate release tablet Take 1 tablet by mouth every 6 hours as needed for up to 7 days. aspirin, enteric coated (ASPIRIN, ENTERIC COATED) 81 mg EC tablet Take 1 tablet by mouth two times a day. celecoxib (CELEBREX) 100 mg capsule Take 1 capsule by mouth two times a day. cetirizine (ZYRTEC) 10 mg tablet Take 10 mg by mouth once daily as needed for cold/allergy symptoms. metFORMIN ER (GLUCOPHAGE XR) 500 mg 24 hr tablet Take 4 tablets by mouth daily with breakfast. lisinopril (ZESTRIL) 10 mg tablet Take 1 tablet by mouth once daily. alfuzosin SR (UROXATRAL) 10 mg 24 hr tablet Take 1 tablet by mouth daily at bedtime. atorvastatin (LIPITOR) 20 mg tablet Take 1 tablet by mouth once daily. Cholecalciferol, Vitamin D3, (VITAMIN D-3) 2,000 unit cap Take 1 capsule by mouth once daily. blood sugar diagnostic (BLOOD GLUCOSE TEST) test strip Test blood sugar(s) 1 times daily and as needed. Dx: Type 2 DM - Uncontrolled E11.9 Insulin: No Lancets lancets Test blood sugar(s) 1 times daily. Dx: Type 2 DM - Uncontrolled E11.65 Insulin: No omeprazole (PRILOSEC) 20 mg capsule Take 1 capsule by mouth daily before breakfast. 1/2 hr before meal. ALPRAZolam (XANAX) 1 mg tablet Take 1 tablet by mouth once daily as needed for anxiety for up to 30 days. Current Facility-Administered Medications Medication Dose Route Frequency perflutren lipid microspheres 1.3 mL in NaCl (PF) 0.9% 10 mL injection (DEFINITY) INTRAVENOUS DIRECTED PRN sodium chloride 0.9 % (flush) 10 mL (BD POSIFLUSH) 10 mL INTRAVENOUS DIRECTED PRN Review of Systems Objective BP 118/82 Pulse 86 Temp 36.6 ?C (97.8 ?F) Resp 16 Wt 108 kg (238 lb 1.6 oz) SpO2 98% BMI 27.52 kg/m? Last 5 Encounter Wt Readings: Date: Wt: 11/23/2023 108 kg (238 lb 1.6 oz) 10/12/2023 108 kg (238 lb) 09/15/2023 107 kg (235 lb 14.3 oz) 08/25/2023 106.8 kg (235 lb 7.2 oz) 06/14/2023 107 kg (236 lb) No waist measurement recorded Estimated body mass index is 27.52 kg/m? as calculated from the following: Height as of 10/20/23: 198.1 cm (6' 5.99). Weight as of this encounter: 108 kg (238 lb 1.6 oz). Last 5 Encounter BP Readings: Date: BP: 11/23/2023 118/82 10/20/2023 133/86 10/12/2023 140/92 09/15/2023 122/72 08/25/2023 120/72 Physical Exam Vitals reviewed. Constitutional: Appearance: Normal appearance. Eyes: Conjunctiva/sclera: Conjunctivae normal. Cardiovascular: Rate and Rhyth (more content not included)... [facility] 11-23-2023 History of Present illness Narrative This note was created using [employer]. Subjective Gala Yun is a 43 year old male. Patient presents with: F/U 6 months SUBJECTIVE: Gala Yun is a 43 year old year old gentleman here today for 6 month follow up appointment for review of medical conditions. Patient is a 43-year-old male presenting for medication refills and follow-up after recent hip surgery. Patient reports a history of a cervical disc herniation, which he attributes to years of repetitive neck movements. He describes the pain as severe, stating that it was absent when he remained still but would become intense with movement. Patient recently underwent hip surgery and is currently in the recovery phase. He reports being sedentary for the past month, which he finds challenging due to his active lifestyle and ADHD. He is eager to resume physical activity but is currently limited to light physical therapy exercises. He reports feeling deconditioned and experiences fatigue with minimal activity, such as standing and cutting vegetables. Patient is currently taking oxycodone at night for pain management but hopes to discontinue its use soon. He has also been taking omeprazole 40 mg for heartburn, which he finds effective and is interested in continuing. He has a history of using [id number] Prilosec as needed for heartburn, which is often triggered by spicy foods. He denies nocturnal symptoms. He is also requesting a refill for alprazolam, which he has been using more frequently post-surgery. Patient is also on lisinopril, metformin, and Lipitor, and is requesting refills for these medications. He reports that his blood sugar levels were elevated during his hospital stay, which he attributes to the stress of surgery and being sedentary. He is concerned about his blood sugar levels and is trying to manage them. He denies any current issues with constipation or nerve problems. PAST MEDICAL HISTORY 07/17/2015: Atypical chest pain No date: Diabetes (HCC) No date: Elevated bilirubin Comment: ?chronic versus intermittent mild elevation sicne childhood--benign condition No date: Hyperlipidemia No date: Kidney stone on left side Comment: had to have blasted and stented (treated Dr. Mittal) No date: Vitamin D deficiency Current Outpatient Medications Medication Sig oxyCODONE IR (ROXICODONE) 5 mg immediate release tablet Take 1 tablet by mouth every 6 hours as needed for up to 7 days. aspirin, enteric coated (ASPIRIN, ENTERIC COATED) 81 mg EC tablet Take 1 tablet by mouth two times a day. celecoxib (CELEBREX) 100 mg capsule Take 1 capsule by mouth two times a day. cetirizine (ZYRTEC) 10 mg tablet Take 10 mg by mouth once daily as needed for cold/allergy symptoms. metFORMIN ER (GLUCOPHAGE XR) 500 mg 24 hr tablet Take 4 tablets by mouth daily with breakfast. lisinopril (ZESTRIL) 10 mg tablet Take 1 tablet by mouth once daily. alfuzosin SR (UROXATRAL) 10 mg 24 hr tablet Take 1 tablet by mouth daily at bedtime. atorvastatin (LIPITOR) 20 mg tablet Take 1 tablet by mouth once daily. Cholecalciferol, Vitamin D3, (VITAMIN D-3) 2,000 unit cap Take 1 capsule by mouth once daily. blood sugar diagnostic (BLOOD GLUCOSE TEST) test strip Test blood sugar(s) 1 times daily and as needed. Dx: Type 2 DM - Uncontrolled E11.9 Insulin: No Lancets lancets Test blood sugar(s) 1 times daily. Dx: Type 2 DM - Uncontrolled E11.65 Insulin: No omeprazole (PRILOSEC) 20 mg capsule Take 1 capsule by mouth daily before breakfast. 1/2 hr before meal. ALPRAZolam (XANAX) 1 mg tablet Take 1 tablet by mouth once daily as needed for anxiety for up to 30 days. Current Facility-Administered Medications Medication Dose Route Frequency perflutren lipid microspheres 1.3 mL in NaCl (PF) 0.9% 10 mL injection (DEFINITY) INTRAVENOUS DIRECTED PRN sodium chloride 0.9 % (flush) 10 mL (BD POSIFLUSH) 10 mL INTRAVENOUS DIRECTED PRN Review of Systems Objective BP 118/82 Pulse 86 Temp 36.6 C (97.8 F) Resp 16 Wt 108 kg (238 lb 1.6 oz) SpO2 98% BMI 27.52 kg/m Last 5 Encounter Wt Readings: Date: Wt: 11/23/2023 108 kg (238 lb 1.6 oz) 10/12/2023 108 kg (238 lb) 09/15/2023 107 kg (235 lb 14.3 oz) 08/25/2023 106.8 kg (235 lb 7.2 oz) 06/14/2023 107 kg (236 lb) No waist measurement recorded Estimated body mass index is 27.52 kg/m as calculated from the following: Height as of 10/20/23: 198.1 cm (6' 5.99). Weight as of this encounter: 108 kg (238 lb 1.6 oz). Last 5 Encounter BP Readings: Date: BP: 11/23/2023 118/82 10/20/2023 133/86 10/12/2023 140/92 09/15/2023 122/72 08/25/2023 120/72 Physical Exam Vitals reviewed. Constitutional: Appearance: Normal appearance. Eyes: Conjunctiva/sclera: Conjunctivae normal. Cardiovascular: Rate and Rhythm: Normal rate and regular rhythm. Heart sounds: Normal heart sounds. Pulmonary: Effort: Pulmonary effort is normal. Breath sounds: Normal breath sounds. Musculoskeletal: Right lower leg: No edema. Left lower leg: No edema. Skin: General: Skin is warm and dry. Neurological: General: No focal deficit present. Mental Status: He is alert and oriented to person, place, and time. Psychiatric: Mood and Affect: Mood normal. Behavior: Behavior normal. Thought Content: Thought content normal. Judgment: Judgment normal. Hemoglobin A1C Date Value 06/16/2023 5.8 % 11/10/2022 5.9 % 02/04/2022 6.1 % 08/14/2021 7.0 07/02/2020 6.1 % 07/01/2018 5.2 % Hemoglobin A1C (POCT) (%) Date Value 03/07/2018 7.5 Assessment and Plan Panic: - Patient requested a refill for alprazolam, which was last prescribed in September. - Refilled alprazolam prescription. - Patient reported increased usage post-surgery but is now stabilizing. - Educated patient on the importance of monitoring usage and potential dependency risks. Hypertension, essential: - Blood pressure currently stable. - Refilled lisinopril prescription. - Advised patient to continue monitoring blood pressure at home. Type 2 diabetes mellitus without complication, without long-term current use of insulin (HCC): - Patient's blood sugar was elevated during hospitalization, likely due to stress and inactivity. - Patient reported blood sugar levels have decreased since discharge. - Ordered A1C, metabolic panel, and blood count to be done before the next appointment. - Refilled metformin prescription. - Advised patient to maintain a balanced diet and monitor blood sugar levels regularly. Hypertension, essential: - Blood pressure currently stable. - Refilled lisinopril prescription. - Advised patient to continue monitoring blood pressure at home. Hypertriglyceridemia: - Refilled Lipitor prescription. - Ordered lipid panel to be done before the next appointment. - Advised patient to continue with current diet and exercise regimen. Vitamin D deficiency: - Ordered vitamin D level test to be done before the next appointment. - Advised patient to continue with current vitamin D supplementation. Neuropathy of foot, unspecified laterality: - No specific treatment changes discussed during this visit. Cervical disc disorder with radiculopathy of cervical region: - Patient reported history of cervical disc issues and radiculopathy. - No specific treatment changes discussed during this visit. Gastro-esophageal reflux disease without esophagitis: - Patient requested a refill for omeprazole, which was effective during hospitalization. - Refilled omeprazole 20 mg prescription. - Advised patient to avoid known dietary triggers such as spicy foods and pizza. - Patient reported no nocturnal symptoms. Vesta Stallworth MD documented in this encounter [facility] 11-17-2023 Telephone encounter Note Spoke to him via [email or web address] CAM [facility] Work Phone: 11-17-2023 Miscellaneous Notes Spoke to him via [email or web address] CAM Pt called asking to speak w you to update you on his situation. He did state there is a little improvement but asked at your convenience if you might call. 10/19 s/p rt hip resurfacing... he can be reached at [phone] documented in this encounter [facility] 11-17-2023 Telephone encounter Note PDMP website checked and validated. All prescriptions have been APPROPRIATELY filled. No suspicious activity was identified. 11/17/2023 by Heather Diego PA-C Patient's request for medication is as follows: Requested Prescriptions Signed Prescriptions Disp Refills oxyCODONE IR (ROXICODONE) 5 mg immediate release tablet 28 tablet 0 Sig: Take 1 tablet by mouth every 6 hours as needed for up to 7 days. Authorizing Provider: HEATHER DIEGO Prescription(s) as above. Please process accordingly. Heather Diego PA-C [facility] 11-17-2023 Miscellaneous Notes PDMP website checked and validated. All prescriptions have been APPROPRIATELY filled. No suspicious activity was identified. 11/17/2023 by Heather Diego PA-C Patient's request for medication is as follows: Requested Prescriptions Signed Prescriptions Disp Refills oxyCODONE IR (ROXICODONE) 5 mg immediate release tablet 28 tablet 0 Sig: Take 1 tablet by mouth every 6 hours as needed for up to 7 days. Authorizing Provider: HEATHER DIEGO Prescription(s) as above. Please process accordingly. Heather Diego PA-C documented in this encounter [facility] 11-11-2023 Telephone encounter Note Pt called asking to speak w you to update you on his situation. He did state there is a little improvement but asked at your convenience if you might call. 10/19 s/p rt hip resurfacing... he can be reached at [phone] [facility] 11-04-2023 Telephone encounter Note Spoke to Gala. He is overall doing better than previous. He states that he does not feel the pain is truly coming from his knee but more so his quad. He has some lateral thigh pain as well. He is able to do exercises without issue. He is less concerned with his symptoms as they are improving. Rx sent in refill encounter. Tereza Hernandez [facility] 11-04-2023 Miscellaneous Notes Spoke to Gala. He is overall doing better than previous. He states that he does not feel the pain is truly coming from his knee but more so his quad. He has some lateral thigh pain as well. He is able to do exercises without issue. He is less concerned with his symptoms as they are improving. Rx sent in refill encounter. Tereza Hernandez Patient calling w update. He is s/p rt hp resurfacing 10/19. He states he is still having post op tightness. ROM is a little better 35-40 degrees max after that he experiences pain in the quad and knee. His number is [phone]. He is requesting a refill of oxy, which will be sent under refill request documented in this encounter [facility] 11-04-2023 Telephone encounter Note [facility] website checked and validated. All prescriptions have been APPROPRIATELY filled. No suspicious activity was identified. 11/04/2023 by Heather Diego PA-C Plan to wean at next fill. Patient's request for medication is as follows: Requested Prescriptions Signed Prescriptions Disp Refills oxyCODONE IR (ROXICODONE) 5 mg immediate release tablet 42 tablet 0 Sig: Take 1 tablet by mouth every 4 hours as needed for up to 7 days. Authorizing Provider: HEATHER DIEGO Prescription(s) as above. Please process accordingly. Heather Diego PA-C [facility] 11-04-2023 Miscellaneous Notes [facility] website checked and validated. All prescriptions have been APPROPRIATELY filled. No suspicious activity was identified. 11/04/2023 by Heatehr Diego PA-C Plan to wean at next fill. Patient's request for medication is as follows: Requested Prescriptions Signed Prescriptions Disp Refills oxyCODONE IR (ROXICODONE) 5 mg immediate release tablet 42 tablet 0 Sig: Take 1 tablet by mouth every 4 hours as needed for up to 7 days. Authorizing Provider: HEATHER DIEGO Prescription(s) as above. Please process accordingly. Heather Diego PA-C documented in this encounter [facility] 11-04-2023 Telephone encounter Note Patient calling w update. He is s/p rt hp resurfacing 10/19. He states he is still having post op tightness. ROM is a little better 35-40 degrees max after that he experiences pain in the quad and knee. His number is [phone]. He is requesting a refill of oxy, which will be sent under refill request [facility] 10-31-2023 Telephone encounter Note Spoke with Gala. Discussed with him that we will plan to initiate outpatient PT at 6 weeks post-op, once we progress him appropriately. We don't want a therapist doing too much too quickly. He understands. Discussed his timeline of therapy and exercises now. He states that he is having difficulty doing the knee to chest exercises because he is only able to flex his knee 20-25 degrees. He states he doesn't particularly have swelling that is inhibiting his ability to flex, he states he feels it because of his quad. Advised him to continue to work on activating his quad and with that continue to work on flexing his knee - almost like a TKA recovery patient. I have gone over exercises to add. He is taking the Baclofen as he did start having more spasms ~1 week after surgery. He will call us back with an update if not seeing improvement. He appreciated the follow up. [facility] Work Phone: 10-31-2023 Miscellaneous Notes Spoke with Gala. Discussed with him that we will plan to initiate outpatient PT at 6 weeks post-op, once we progress him appropriately. We don't want a therapist doing too much too quickly. He understands. Discussed his timeline of therapy and exercises now. He states that he is having difficulty doing the knee to chest exercises because he is only able to flex his knee 20-25 degrees. He states he doesn't particularly have swelling that is inhibiting his ability to flex, he states he feels it because of his quad. Advised him to continue to work on activating his quad and with that continue to work on flexing his knee - almost like a TKA recovery patient. I have gone over exercises to add. He is taking the Baclofen as he did start having more spasms ~1 week after surgery. He will call us back with an update if not seeing improvement. He appreciated the follow up. Patient is s/p 10/20/23 total hip resurfacing. He is calling today stating he is doing the exercises given to him but is asking if he is to start out-patient physical therapy. He also asked about bending his knee and progress or lack of as he is performing the exercises. He can be reached at [phone] documented in this encounter [facility] 10-31-2023 Telephone encounter Note Patient is s/p 10/20/23 total hip resurfacing. He is calling today stating he is doing the exercises given to him but is asking if he is to start out-patient physical therapy. He also asked about bending his knee and progress or lack of as he is performing the exercises. He can be reached at [phone] [facility] 10-25-[address] Mo has called the patient to discuss pain control measures and expectations - he is 4 days post-op. Also discussed exercise/stretching regimen. Explained that the Oxycodone medication has been refilled, but may not be able to be filled for a few days - have to wait 7 days. Patient's request for medication is as follows: Requested Prescriptions Signed Prescriptions Disp Refills oxyCODONE IR (ROXICODONE) 5 mg immediate release tablet 42 tablet 0 Sig: Take 1 tablet by mouth every 4 hours as needed for up to 7 days. Do not start before October 28, 2023. Authorizing Provider: STEPH MAIN [facility] Work Phone: 10-25-[address] Mo has called the patient to discuss pain control measures and expectations - he is 4 days post-op. Also discussed exercise/stretching regimen. Explained that the Oxycodone medication has been refilled, but may not be able to be filled for a few days - have to wait 7 days. Patient's request for medication is as follows: Requested Prescriptions Signed Prescriptions Disp Refills oxyCODONE IR (ROXICODONE) 5 mg immediate release tablet 42 tablet 0 Sig: Take 1 tablet by mouth every 4 hours as needed for up to 7 days. Do not start before October 28, 2023. Authorizing Provider: STEPH MAIN Patient has called in requesting a refill of their medication. Details are below. Surgery: Right Hip Resurfacing Surgery Date: 10/20/23 Medication: oxycodone 5 mg Frequency: currently taking 1 tab every 3 hours due to increased pain and swelling Pharmacy has been verified: [facility] [address] [place] [address] Other comments/concerns this phone call: Patient called in yesterday and spoke to a resident about his increased pain and swelling. He has been taking his pain medication more frequently per their advice. However, he has missed his physical therapy appointments because of this and wants to know if this will hinder his recovery at all? He is still having the pain and increased swelling as well. Gala can be reached at documented in this encounter [facility] 10-25-2023 Telephone encounter Note Patient has called in requesting a refill of their medication. Details are below. Surgery: Right Hip Resurfacing Surgery Date: 10/20/23 Medication: oxycodone 5 mg Frequency: currently taking 1 tab every 3 hours due to increased pain and swelling Pharmacy has been verified: [facility] [address] [place] [address] Other comments/concerns this phone call: Patient called in yesterday and spoke to a resident about his increased pain and swelling. He has been taking his pain medication more frequently per their advice. However, he has missed his physical therapy appointments because of this and wants to know if this will hinder his recovery at all? He is still having the pain and increased swelling as well. Gala can be reached at [facility] 10-24-2023 Telephone encounter Note PATIENT TELEPHONE CALL ORTHOPAEDIC SURGERY Patient: Gala Yun Contact number: [phone] Received page to orthopaedics plastic extrusion operator pager. Returned call at earliest opportunity. Patient is status post BHR on 10/20/[address] Mo. Patient reports the following: Pain in his hip and knee and progressive swelling in his knee. Patient having difficulty sleeping and bearing weight because of the pain. Given the remote nature of this call, I was not able to perform a formal physical exam. Patient is able to flex and extend his knee with pain, reports warm and well perfused toes. Denies numbness and tingling. Recommendations: Increase oxycodone from q4hr to q3hr and continue scheduled tylenol. If patient experiences fevers, chills, numbness, tingling, purulent drainage from his incision or pain that is unresponsive to pain medication, he should seek care at his local emergency department. Advised to continue per current management. Patient is requested to visit us at [facility] [place] ED or nearest ED if there is any concern so we may assess in person. Concerns addressed and questions answered appropriately. Patient in agreement with plan and verbalized understanding. SIGNATURE: Renetta Graham MD PATIENT NAME: Gala Yun DATE: October 24, 2023 TIME: 7:39 AM PAGER/CONTACT #: [phone] [facility] Work Phone: 10-24-2023 Miscellaneous Notes PATIENT TELEPHONE CALL ORTHOPAEDIC SURGERY Patient: Gala Yun Contact number: [phone] Received page to orthopaedics plastic extrusion operator pager. Returned call at earliest opportunity. Patient is status post BHR on 10/20/[address] Mo. Patient reports the following: Pain in his hip and knee and progressive swelling in his knee. Patient having difficulty sleeping and bearing weight because of the pain. Given the remote nature of this call, I was not able to perform a formal physical exam. Patient is able to flex and extend his knee with pain, reports warm and well perfused toes. Denies numbness and tingling. Recommendations: Increase oxycodone from q4hr to q3hr and continue scheduled tylenol. If patient experiences fevers, chills, numbness, tingling, purulent drainage from his incision or pain that is unresponsive to pain medication, he should seek care at his local emergency department. Advised to continue per current management. Patient is requested to visit us at [facility] ED or nearest ED if there is any concern so we may assess in person. Concerns addressed and questions answered appropriately. Patient in agreement with plan and verbalized understanding. SIGNATURE: Renetta Graham MD PATIENT NAME: Gala Yun DATE: October 24, 2023 TIME: 7:39 AM PAGER/CONTACT #: [phone] documented in this encounter [facility] 10-21-2023 Note HNO ID: [id number] Author: MEHRDAD DILLARD RN Service: Care Management Author Type: Registered Nurse Type: Care Mgt Progress Note Filed: 10/21/2023 16:29 Note Text: CARE MANAGEMENT DISCHARGE NOTE SERVICE DATE: October 21, 2023 SERVICE TIME: 4:29 PM Admission Date: 10/20/2023 LOS: 0 days Discharge Arrangement Discharge Arrangement: Home with Self Care Services Arranged Medical Services: Other: See Comment Caregiver Assessment Caregiver is ready, willing and able to meet the patient's needs as recommended by the inter-professional team: No Caregiver needed Name of Caregiver: Spouse Fifi is available to provide 24/7 assistance through 10/24/2023. Friends may be able to assist while Spouse at work. Transportation Arrangements Transportation Arrangements: Car Date of Trip: (TBD) Time of Trip: (TBD) Destination: home Handoff Communication: Handoff to: Primary Care Physician Primary Care Physician Name/Phone: Vesta Stallworth MD Additional Information: Discharge order in place. No skilled needs identified. Family will transport. SIGNATURE: Mehrdad Dillard RN PATIENT NAME: Gala Yun DATE: October 21, 2023 TIME: 4:29 PM CONTACT #: [phone] [facility] 10-21-2023 Note HNO ID: [id number] Author: CHRISTY WILSON RN Service: Care Management Author Type: Registered Nurse Type: Care Mgt Initial Assessment Filed: 10/21/2023 11:56 Note Text: CARE MANAGEMENT: ASSESSMENT AND DISCHARGE PLAN SERVICE DATE: October 21, 2023 SERVICE TIME: 1151 PCP: Vesta Stallworth MD Primary Contact: Extended Emergency Contact Information Primary Emergency Contact: Fifi Yun Mobile Relation: Spouse Admission Status: Ambulatory Surgery Insurance Provider: MMO S Discharge Planning requested by: Per Department Practice Potential Transition Plans Home Advance Directives Current Advance Directive: Health Care Power of Clin Application Specialist;Living Will In Chart: Yes Up To Date and Valid: Yes Current Living Arrangements and Support Lives with: Spouse/significant other, Children ((Daughter - age 15)) Type of Residence: Private Residence (House) (Multi level home with a first floor set up.) Does the patient have to climb stairs at home?: Yes;stairs outside the home (( [address])) Support: Spouse/significant other, Friends/neighbors How do you manage to accomplish the following: Independent: Ambulation;Bathe/Shower;Dress;[place] ls/Meal Prep;Going to the bathroom;Transportation to appointments/community;Medication Management Current Services/Equipment Current Post-Acute Service(s): DME Current DME Type: Crutches, Shower seat, Glucometer device and supplies Discharge Planning Patient Goal(s): Less pain, Other: See Comment Patient's Other Post-Acute Care Goal(s): Return to what I enjoy doing- golf; hike; bike. [place] Explained: [place] Given: No Reason Not Given: No placements necessary Discharge Planning Participant(s): Patient;Spouse/significant other Patient/Family Comments: Fifi Yun ([facility] [place])-- [phone] Caregiver Assessment: Caregiver is ready, willing and able to meet the patient's needs as recommended by the inter-professional team: Yes Name of Caregiver: Spouse Fifi is available to provide 25/10 assistance through 10/24/2023. Friends may be able to assist while Spouse at work. Transport at Discharge: Transportation Arrangements: Car Date of Trip: (TBD) Time of Trip: (TBD) Destination: [facility] Jonathan [address]; [place] [address] (HOME) Needs Prior to Discharge: Needs Prior to Discharge: To Be Determined;Patient/Family Post-Acute Discharge Plan: D/C date unknown. PT recommending a return to home with no skilled needs. Continue pain control. Unit CM/SW to follow for D/C planning needs. Please see Treatment Team for Care Management Weekend/Holiday coverage. SIGNATURE: Christy Wilson RN PATIENT NAME: Gala Yun DATE: October 21, 2023 TIME: 11:51 AM CONTACT #: [phone] [facility] 10-21-2023 Note HNO ID: [id number] Author: TOBY WOODS PA-C Service: Orthopaedic Surgery Author Type: Physician Car Lubricator Type: Plan of Care Filed: 10/21/2023 10:58 Note Text: Orthopaedic Surgery Plan of Care S: Gala Yun is a 43 year old male POD1 s/p RIGHT Hip Revision on 10/20/[address] Mo. The patient states that his pain is controlled at this time with adjustment of pain regimen. The patient denies any further medical complaints or pain. The patient denies lightheadedness, dizziness, C/P, SOB, N/V/D, ABD pain or excessive calf pain/swelling at this time. Problem with urinating. States he had that before after labral repair surgery. Bladder scan @ 1050 for 364cc last cath at 2400. Pertinent past medical history: 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; O: NAD. Afebrile. AANDOX3. VSS. Labs WNL. Aquacel C/D/I. Distal pulses intact. BP: 125/69 Temp: 38.0 ?C (100.5 ?F)! Temp src: Oral Pulse: 66 Resp: 20 O2 Therapy: Room Air SpO2: 95 % A/P: - Activity: 50% WB on the operative leg x6wks No high impact activity x1 year to allow for femoral neck adaptation to new component stresses Unlimited flexion allowed, follow ?kick the dog? precautions: extreme hip extension and external rotation OK to follow PT protocol for abductors - teach homegoing exercises OK for gentle abduction while standing in the plane of gravity No abduction against gravity while lying on your side (x6wks post-op) - Wound: Silverlon x 7 days - Pain: Multimodal; PO and IV breakthrough - DVT Prophylaxis: SCD pumps while in the hospital, ASA 81 mg BID x 4 weeks, BLE CHELSEA Hose upon discharge for a minimum of 2 weeks - Antibiotics: Emilee-op Ancef x 24hrs, Doxy 100 mg BID x 3 weeks - [place]endano: Per nursing protocol - Diet: Regular - MIVF, HLIV when tolerating sufficient PO - Consults: PT/OT - PT/OT: Home - Disposition: Appreciate consult recommendations, PT/OT pending at this time. Anticipate discharge once pain controlled, all PT/OT goals met and able to void. . Plan of Care: discussed with Provider, RN, and Patient. All questions and concerns regarding the plan of care were addressed to the satisfaction of all participants. Toby Woods PA-C Orthopaedic Surgery [phone] ` [facility] 10-21-2023 Note HNO ID: [id number] Author: JAGRUTI MITCHELL MD Service: Orthopaedic Surgery Author Type: Resident Type: Progress Notes Filed: 10/21/2023 08:28 Note Text: ORTHOPAEDIC SURGERY Daily PROGRESS NOTE PATIENT NAME: Gala Yun Attending: Holland Gordon MD Hospital Day: 2 Date of Surgery: 10/20/2023 1 Day Post-Op A/P: 43 year old yo male POD1 s/p Right BHR Overnight events: NAEON - PACU AP Pelvis Xray - Activity (PT consult) 50% WB on the operative leg x6wks No high impact activity x1 year to allow for femoral neck adaptation to new component stresses Unlimited flexion allowed, follow ?kick the dog? precautions: extreme hip extension and external rotation OK to follow PT protocol for abductors - teach homegoing exercises OK for gentle abduction while standing in the plane of gravity No abduction against gravity while lying on your side (x6wks post-op) - Antibiotics x24hrs as a prophylactic measure - Scheduled IV Toradol 30mg Q6hrs in the hospital, transition to Celebrex upon discharge - Medications: Oxycodone 1 pill every 4hrs x 7 days Tylenol 1000mg Q8hrs scheduled x30 days Balcofen 10mg TID scheduled for muscle spasms (home with 1-mo supply) Celebrex 200mg QDay x8wks (30days + 1 RF) for HO ppx and swelling control -- also home with Prilosec to protect stomach lining Doxycycline 100 mg BID x3 weeks for prophylaxis Stool softener + Iron + Vit C - DVT ppx: SCD pumps while in the hospital, BLE CHELSEA Hose upon discharge for a minimum of 2 weeks, ASA EC 81mg PO BID x4 weeks - Dispo: Plan for discharge once pain controlled and all PT/OT goals met. POD#1. - Patient was given post-op instructions in pre-operative packet in the office * Discharge planning - Await PT recs --> consult today - Case Management --> assessment today - Dispo: anticipate DC to Home on POD 1 S: Doing well, pain well controlled, denies n/v/cp/sob VITALS: 10/21/23 0008 10/21/23 0135 10/21/23 0245 10/21/23 0400 BP: 120/61 124/63 Pulse: 61 69 Resp: 16 16 16 16 Temp: 36.5 ?C (97.7 ?F) (!) 38 ?C (100.4 ?F) TempSrc: Oral Oral SpO2: 99% 98% Weight: Height: Intake/Output Summary (Last 24 hours) at 10/21/2023 0644 Last data filed at 10/21/2023 0050 Gross per 24 hour Intake 1670 ml Output 950 ml Net 720 ml Physical Exam: * Gen: awake, alert, converses appropriately, NAD * Resp: Unlabored on RA, no wheeze * RLE: - dressing c,d,i - 5/5 PF, DF, EHL - SILT L4-S1 - 2+ PT pulse, toes wwp Labs: CBC:No results for input(s): WBC, HB, HCT, PLT, MCV, RDWCV, NEUTP, ABSNEUT, LYMPHP, MONOP, EODINP in the last 168 hours. COAG: No results for input(s): APTT, INR in the last 168 hours. BMP: No results for input(s): GLUC, NA, K, CHLOR, CO2, ANION, BUN, CREAT in the last 168 hours. CHEM: No results for input(s): ALB, TPROT, CA, MG in the last 168 hours. URINALYSIS:No results for input(s): PH, SPGR, UGLUC, UBILI, UKET, UHB, UPROT, UROBIL, UWBC, SSA in the last 168 hours. Invalid input(s): NITR Intake/Output Summary (Last 24 hours) at 10/21/2023 0644 Last data filed at 10/21/2023 0050 Gross per 24 hour Intake 1670 ml Output 950 ml Net 720 ml Lines, Drains, and Airways Line Duration Peripheral 10/20/23 2230 Short Right Forearm 22 Gauge <1 day Jagruti Mitchell MD, PGY-5 Orthopaedic Surgery Cell/pager: [phone] For [facility] [place] floor related issues or questions[place] [phone] If unable to reach the PA team between 6 am and 5 pm, please page me. At all other times, or if urgent, please page the orthopaedic on-call resident at: [phone]) for [facility] patients [phone] for [facility] patients [phone] for [facility] patients [id number] for [facility] patients [phone] for [facility] patients If no response from 1st page within 20 minutes, please contact Ortho PA: Carroll Muñoz PA: Rivera Bruner PA: Aydee Joe PA: Annie Gao PA: If after 6PM and before 6AM OR on Weekends OR for Emergent needs, please page [phone] [facility] 10-21-2023 Note HNO ID: [id number] Author: CHELI FIORE RN Service: ? Author Type: Registered Nurse Type: Nursing Progress Note Filed: 10/21/2023 07:34 Note Text: Pt ambulated to the bathroom using walker with minimal assist. No c/o dizziness, weakness, or SOB. [facility] 10-20-2023 Note HNO ID: [id number] Author: AUTUMN PALMER APRN.CRNA Service: ? Author Type: Nurse Workforce Planner Type: Anesthesia Procedure Notes Filed: 10/20/2023 11:49 Note Text: ANESTHESIOLOGY PROCEDURE NOTE Spinal Block General Information Procedure Start Time/Medication Administration: 10/20/2023 10:43 AM Procedure End time: 10/20/2023 10:43 AM Patient location during procedure: OR Timeout Performed Pre-procedure: timeout performed Reason for Block: primary surgical anesthetic Staffing SRNA: Juan Luis Ross SRNA Performed by: ARTEM Preparation Sterility Preparation: hand hygiene performed prior to procedure, sterile gloves, drapes, and procedure tray, surgical cap used, mask used, sterile drape used during line insertion, skin prep agent completely dried prior to procedure Sterility Technique Not Completely Performed Due to Extreme Emergency: No Site Prep: Duraprep Procedure Details Patient Position: sitting Ultrasound Guided: No Monitoring: Pulse Ox and NIBP Approach: Midline Location: L3-4 Injection Technique: single-shot Needle Needle Type: pencil-tip Needle Gauge: 24 G Needle Length: 3.5 in CSF: adequate CSF flow from spinal needle Assessment Events: tolerated well Medications Administered bupivacaine (PF) 0.5 % (5 mg/mL) injection - INTRATHECAL 15 mg - 10/20/2023 10:43:00 AM SIGNATURE: Autumn Palmer APRN.BAR MANAGER PATIENT NAME: Gala Yun DATE: October 20, 2023 TIME: 11:26 AM CSN: [id number] [facility] 10-13-2023 Telephone encounter Note ORTHOPAEDIC COORDINATION OF CARE Pre-Op Assessment Discharge Disposition (Planned): Home with Self Care Discharge Transportation: Car PRIMARY CARE PHYSICIAN: Vesta Stallworth MD OR Surgery Date: 10/20/2023 [facility] Appointment: 10/20/2023 Joint: Jointtype: Hip Side: right (resurfacing) Health Insurance: Medical Dayhoit Primary Contact: Extended Emergency Contact Information Primary Emergency Contact: Fifi Yun Mobile Relation: Spouse Have you had joint replacement surgery before?: No Social: Pre-Hospital Baseline Mental Status: Alert & Oriented Informant: Self Living Arrangement: Home Who able to assist you at home once you discharge? Spouse Are they available for at least 2 weeks? Yes Stairs: 2 story home 1 stairs to enter home Unknown # of stairs inside home Bedroom Location: First Bathroom Location: First Do you have problems that affect your ability to perform normal activities of daily living such as bathing, dressing, or toileting yourself? No = 0 What is your current functional status?: Perform ADLs independently Are you able to afford your medications/Food? Yes Social Determinants of Health Tobacco Use: Medium Risk (10/12/2023) Patient History Smoking Tobacco Use: Former Smokeless Tobacco Use: Never Passive Exposure: Not on file Alcohol Use: Not At Risk (03/11/2022) AUDIT-C Frequency of Alcohol Consumption: 2-4 times a month Average Number of Drinks: 1 or 2 Frequency of Binge Drinking: Less than monthly Financial Resource Strain: Medium Risk (03/11/2022) Overall Financial Resource Strain (CARDIA) Difficulty of Paying Living Expenses: Somewhat hard Food Insecurity: No Food Insecurity (03/11/2022) Hunger Vital Sign Worried About Running Out of Food in the Last Year: Never true Ran Out of Food in the Last Year: Never true Transportation Needs: No Transportation Needs (03/11/2022) PRAPARE - Transportation Lack of Transportation (Medical): No Lack of Transportation (Non-Medical): No Physical Activity: Sufficiently Active (03/11/2022) Exercise Vital Sign Days of Exercise per Week: 6 days Minutes of Exercise per Session: 40 min Stress: Stress Concern Present (03/11/2022) [employer] [place] [employer] - Occupational Stress Questionnaire Feeling of Stress : Rather much Social Connections: Socially Isolated (03/11/2022) Social Connection and Isolation Panel [NHANES] Frequency of Communication with Friends and Family: Twice a week Frequency of Social Gatherings with Friends and Family: Never Attends Rastafari Services: Never Active Member of Clubs or Organizations: No Attends Club or Organization Meetings: Never Marital Status: Intimate Partner Violence: Not At Risk (03/11/2022) Humiliation, Afraid, Rape, and Kick questionnaire Fear of Current or Ex-Partner: No Emotionally Abused: No Physically Abused: No Sexually Abused: No Depression: Not at risk (03/11/2022) PHQ-2 PHQ-2 Score: 2 Housing Stability: Low Risk (03/11/2022) Housing Stability Vital Sign Unable to Pay for Housing in the Last Year: No Number of Places Lived in the Last Year: 1 Unstable Housing in the Last Year: No Utilities: Not At Risk (10/13/2023) [facility] Utilities Threatened with loss of utilities: No Area Deprivation Index: Low Risk (11/12/2022) Area Deprivation Index National Score (1-100), lower number is lower risk: 41 State Score (1-10), lower number is lower risk: 2 Data from: https://www.neighborhoodatlas.[facility]/. Last address used for calculation: [facility] [address] Equipment: Do you currently use any equipment at home for your medical condition or to help you get around? None Patient has crutches and a shower chair at home for after surgery Active Services/Needs: None Transportation: Do you have reliable transportation to and from surgery/appointments?: Yes Who will provide discharge transportation: Spouse Contact information for patient's ride: Will your ride be available for 1200 discharge time? Yes Office Visit Follow Up Did you receive the antiseptic wipes from your surgeon s office? Yes Did you receive a prescription for an assistive device (walker or crutches) from your surgeon s office and fill it or do you already have one at home? Yes Did you attend a joint education class/Watched video? Yes Did you read the education book provided to you? Yes Have you let your PCP know you are having a joint replacement surgery? No, If no, plan for correction is: Patient advised to notify PCP office of upcoming surgery If you are currently being seen by pain management, are they aware you are having a joint replacement surgery? N/A Have you informed any specialty care providers of your upcoming joint replacement surgery? N/A Have you made arrangements for your pets? Yes Is your house ready for your recovery? Yes PLAN OF CARE VISIT DISCUSSED: No, If no, plan for correction is: Patient could possibly D/C home the same day of surgery so would not get a plan of care visit while in the hospital FREEDOM OF CHOICE: Level of Care Discussed: N/A, self-care exercises and outpatient therapy if needed Provider List: N/A, self-care exercises and outpatient therapy if needed Provider list within the patient's requested geographic area offered to the patient/family: No - Patient is in agreement to D/C home with self-care exercises and outpatient therapy if needed following surgery Total Joint Arthroplasty (TJA) Surgical Risk Procedure: Primary total Hip replacement Date assessed: risk assessed on 06/14/2023 06/14/2023 TJA Risk Procedure Primary total Hip replacement Estimated Length of Stay (# of days) 1 Chance of NOT Returning Home at Discharge 3.63 30 Day Chance of Readmission 0.64 Plan for HRA. Patient stated he is in agreement to D/C home with self-care exercises and outpatient therapy if needed following surgery instead of using [facility] services. Plan for spouse to provide D/C transport home. Patient is aware of the possibility of same day D/C following surgery at this time, pending medical clearance and clearance from PT/OT SIGNATURE: ARABELLA Metcalf DATE: October 13, 2023 TIME: 9:26 AM [facility] 10-13-2023 Miscellaneous Notes ORTHOPAEDIC COORDINATION OF CARE Pre-Op Assessment Discharge Disposition (Planned): Home with Self Care Discharge Transportation: Car PRIMARY CARE PHYSICIAN: Vesta Stallworth MD OR Surgery Date: 10/20/2023 [facility] Appointment: 10/20/2023 Joint: Jointtype: Hip Side: right (resurfacing) Health Insurance: Medical Dayhoit Primary Contact: Extended Emergency Contact Information Primary Emergency Contact: Fifi Yun Mobile Relation: Spouse Have you had joint replacement surgery before?: No Social: Pre-Hospital Baseline Mental Status: Alert & Oriented Informant: Self Living Arrangement: Home Who able to assist you at home once you discharge? Spouse Are they available for at least 2 weeks? Yes Stairs: 2 story home 1 stairs to enter home Unknown # of stairs inside home Bedroom Location: First Bathroom Location: First Do you have problems that affect your ability to perform normal activities of daily living such as bathing, dressing, or toileting yourself? No = 0 What is your current functional status?: Perform ADLs independently Are you able to afford your medications/Food? Yes Social Determinants of Health Tobacco Use: Medium Risk (10/12/2023) Patient History Smoking Tobacco Use: Former Smokeless Tobacco Use: Never Passive Exposure: Not on file Alcohol Use: Not At Risk (03/11/2022) AUDIT-C Frequency of Alcohol Consumption: 2-4 times a month Average Number of Drinks: 1 or 2 Frequency of Binge Drinking: Less than monthly Financial Resource Strain: Medium Risk (03/11/2022) Overall Financial Resource Strain (CARDIA) Difficulty of Paying Living Expenses: Somewhat hard Food Insecurity: No Food Insecurity (03/11/2022) Hunger Vital Sign Worried About Running Out of Food in the Last Year: Never true Ran Out of Food in the Last Year: Never true Transportation Needs: No Transportation Needs (03/11/2022) PRAPARE - Transportation Lack of Transportation (Medical): No Lack of Transportation (Non-Medical): No Physical Activity: Sufficiently Active (03/11/2022) Exercise Vital Sign Days of Exercise per Week: 6 days Minutes of Exercise per Session: 40 min Stress: Stress Concern Present (03/11/2022) [employer] [place] [employer] - Occupational Stress Questionnaire Feeling of Stress : Rather much Social Connections: Socially Isolated (03/11/2022) Social Connection and Isolation Panel [NHANES] Frequency of Communication with Friends and Family: Twice a week Frequency of Social Gatherings with Friends and Family: Never Attends Rastafari Services: Never Active Member of Clubs or Organizations: No Attends Club or Organization Meetings: Never Marital Status: Intimate Partner Violence: Not At Risk (03/11/2022) Humiliation, Afraid, Rape, and Kick questionnaire Fear of Current or Ex-Partner: No Emotionally Abused: No Physically Abused: No Sexually Abused: No Depression: Not at risk (03/11/2022) PHQ-2 PHQ-2 Score: 2 Housing Stability: Low Risk (03/11/2022) Housing Stability Vital Sign Unable to Pay for Housing in the Last Year: No Number of Places Lived in the Last Year: 1 Unstable Housing in the Last Year: No Utilities: Not At Risk (10/13/2023) [facility] Utilities Threatened with loss of utilities: No Area Deprivation Index: Low Risk (11/12/2022) Area Deprivation Index National Score (1-100), lower number is lower risk: 41 State Score (1-10), lower number is lower risk: 2 Data from: https://www.neighborhoodatlas.[facility]/. Last address used for calculation: [address] Equipment: Do you currently use any equipment at home for your medical condition or to help you get around? None Patient has crutches and a shower chair at home for after surgery Active Services/Needs: None Transportation: Do you have reliable transportation to and from surgery/appointments?: Yes Who will provide discharge transportation: Spouse Contact information for patient's ride: Will your ride be available for 1200 discharge time? Yes Office Visit Follow Up Did you receive the antiseptic wipes from your surgeon s office? Yes Did you receive a prescription for an assistive device (walker or crutches) from your surgeon s office and fill it or do you already have one at home? Yes Did you attend a joint education class/Watched video? Yes Did you read the education book provided to you? Yes Have you let your PCP know you are having a joint replacement surgery? No, If no, plan for correction is: Patient advised to notify PCP office of upcoming surgery If you are currently being seen by pain management, are they aware you are having a joint replacement surgery? N/A Have you informed any specialty care providers of your upcoming joint replacement surgery? N/A Have you made arrangements for your pets? Yes Is your house ready for your recovery? Yes PLAN OF CARE VISIT DISCUSSED: No, If no, plan for correction is: Patient could possibly D/C home the same day of surgery so would not get a plan of care visit while in the hospital FREEDOM OF CHOICE: Level of Care Discussed: N/A, self-care exercises and outpatient therapy if needed Provider List: N/A, self-care exercises and outpatient therapy if needed Provider list within the patient's requested geographic area offered to the patient/family: No - Patient is in agreement to D/C home with self-care exercises and outpatient therapy if needed following surgery Total Joint Arthroplasty (TJA) Surgical Risk Procedure: Primary total Hip replacement Date assessed: risk assessed on 06/14/2023 06/14/2023 TJA Risk Procedure Primary total Hip replacement Estimated Length of Stay (# of days) 1 Chance of NOT Returning Home at Discharge 3.63 30 Day Chance of Readmission 0.64 Plan for HRA. Patient stated he is in agreement to D/C home with self-care exercises and outpatient therapy if needed following surgery instead of using [facility] services. Plan for spouse to provide D/C transport home. Patient is aware of the possibility of same day D/C following surgery at this time, pending medical clearance and clearance from PT/OT SIGNATURE: ARABELLA Metcalf DATE: October 13, 2023 TIME: 9:26 AM documented in this encounter [facility] 10-12-2023 History of Present illness Narrative Radiology Service Progress Note PATIENT NAME: Gala Yun DATE OF SERVICE: October 12, 2023 TIME: 12:52 PM PATIENT IDENTITY VERIFICATION COMPLETED USING TWO (2) IDENTIFIERS: Name and Date of confirmed by patient verbally. FALL SCREENING: Has the patient had 2 falls in the last year or 1 fall with injury or currently using an Ambulatory Assistive Device (Walker, Cane, Wheelchair, Crutches, etc.)? No PATIENT GENDER DATA: Male PATIENT RELEVANT IMPLANT DATA REVIEWED: Not Applicable PATIENT PRESENTS WITH AN IMPLANTABLE OR ATTACHED STUCCO MASON: No RADIOLOGY DEPARTMENT: General X-ray: Exam(s) Completed: Pelvis X-Ray: Pelvis with Hip Right, sitting and standing pelvis per dr mo PERIPHERAL IV DATA: Not applicable SIGNED BY: RT Madan(Lula) October 12, 2023 12:52 PM documented in this encounter [facility] 10-12-2023 Note HNO ID: [id number] Author: AVE HIGH RT(R) Service: ? Author Type: Technologist Type: Progress Notes Filed: 10/12/2023 12:53 Note Text: Radiology Service Progress Note PATIENT NAME: Gala Yun DATE OF SERVICE: October 12, 2023 TIME: 12:52 PM PATIENT IDENTITY VERIFICATION COMPLETED USING TWO (2) IDENTIFIERS: Name and Date of confirmed by patient verbally. FALL SCREENING: Has the patient had 2 falls in the last year or 1 fall with injury or currently using an Ambulatory Assistive Device (Walker, Cane, Wheelchair, Crutches, etc.)? No PATIENT GENDER DATA: Male PATIENT RELEVANT IMPLANT DATA REVIEWED: Not Applicable PATIENT PRESENTS WITH AN IMPLANTABLE OR ATTACHED STUCCO MASON: No RADIOLOGY DEPARTMENT: General X-ray: Exam(s) Completed: Pelvis X-Ray: Pelvis with Hip Right, sitting and standing pelvis per dr mo PERIPHERAL IV DATA: Not applicable SIGNED BY: Ave High, RT(R) October 12, 2023 12:52 PM [facility] 10-12-2023 Instructions Rosa M Dillard APRN.[facility] 10/12/2023 9:21 AM EDT Images from the original note were not included. [place] [facility] Pre-Anesthesia Consultation Clinic PATIENT PREOPERATIVE INSTRUCTIONS Holland Mo MD has scheduled you for your procedure at this surgery center: [facility] [place] Scheduling Office: [phone] --[address] [place] [address]. Please read below carefully for your personalized instructions. Dietary Restrictions: - No solid food after midnight. - You may have 12 ounces of clear liquids (water, clear juices such as apple juice or gatorade, carbonated beverages, clear tea, black coffee, jello) until 2 hours before scheduled arrival at facility. No red/purple coloring and no creamer/sugar Medications: Unless instructed differently below, stay on all of your medications until your surgery. If you start any new medications after today's visit, please contact your surgeon. Pre-Surgery Med Instructions Medication Instructions ALPRAZolam (XANAX) 1 mg tablet IF needed aspirin, enteric coated (ASPIRIN, ENTERIC COATED) 81 mg EC tablet Stop 7 days before surgery metFORMIN ER (GLUCOPHAGE XR) 500 mg 24 hr tablet Do not take the day of surgery lisinopril (ZESTRIL) 10 mg tablet Do not take the day of surgery alfuzosin SR (UROXATRAL) 10 mg 24 hr tablet Take the day of surgery with a small sip of water atorvastatin (LIPITOR) 20 mg tablet Take the day of surgery with a small sip of water Cholecalciferol, Vitamin D3, (VITAMIN D-3) 2,000 unit cap Stop 7 days before surgery blood sugar diagnostic (BLOOD GLUCOSE TEST) test strip Lancets lancets If you take any medications for erectile dysfunction-Cialis (Tadalafil), Levitra, Staxyn (Vardenafil) Viagra (Sildenenafil please do not take these for 48 hours before surgery. If you start any new medications after today's visit, please contact the surgeon's office. Blood Thinning Medications: - Stop NSAIDS (Ibuprofen, Advil, Aleve, Motrin, Celebrex, Mobic, etc.) 7 days before surgery, as directed by your surgeon. - Stop Aspirin 7 days before surgery, as directed by your surgeon. - Stop Vitamin E, ALL multi-vitamins, herbals and dietary supplements 7 days before surgery. - You may take Tylenol (Acetaminophen) or any of your pain medications that do not contain aspirin or NSAIDS as needed. Important Reminders: - Candy, mints, and tobacco products are NOT permitted the morning of surgery. - Hearing aids, dentures and glasses may be worn the morning of surgery. - NO jewelry, body piercings, makeup, hairpins or contacts are to be worn the day of surgery. If you develop symptoms such as a fever, cold, or flu, or have other changes to your health within TWO DAYS of scheduled surgery or the morning of surgery, please contact the surgery center above. Personal Belongings: -Please have photo ID and insurance cards. -If you do not have a copy of advance directives on file with us, please bring a copy with you on the day of surgery. - Leave ALL valuables and money at home or with family members. For Outpatient Procedures: - YOU MUST HAVE A RESPONSIBLE MEAT HOSTESS TAKE YOU HOME. A LASER SPECIALIST OR ATTENDANT HONOR BAR CANNOT BE MADE A RESPONSIBLE MEAT HOSTESS. - We recommend that a responsible person stays with you overnight to take care of you. - You cannot stay in a hotel alone after outpatient surgery. You will not be permitted to have your surgery, if you do not have someone to take care of you. Arrival Time for Surgery: - To obtain your arrival time for surgery, call your physician's office the day before your surgery. - If your surgery is scheduled for Tuesday, call the Tuesday before. Your surgeon s senior master scheduler will tell you what time to call the office. - If you have not reached the departmental senior master scheduler by 5 P.M., call [phone] after 5 P.M. the day before your surgery. Please be aware that emergency situations arise, which may delay or change your surgical time. If this happens, we will notify you as soon as possible and regret any inconvenience. If you already have an Advance Directive, please fax a copy to [phone] or email to for it to be added to your chart. If you do not have an Advance Directive, you can find the appropriate form and more information at [email or web address]. We recommend that you complete the Advance Directive form found on the website and bring it with you the day of your surgery. It can be witnessed and scanned into your chart that day. Rosa M Dillard APRN.KRISTINA documented in this encounter [facility] 10-12-2023 History and physical note Images from the original note were not included. [facility] HISTORY AND PHYSICAL EXAMINATION SERVICE DATE: 10/12/2023 SERVICE TIME: 9:59 AM PRIMARY CARE PHYSICIAN: Vesta Stallworth MD Assessment Patient has the following medical conditions which may affect emilee-operative course: Coronary artery disease involving [place] coronary artery of [place] heart without angina pectoris Assessment: mild, non-obstructing per CTA recently, following cardilogy, last OV below Dr. Jeff, 08/25/2023 CHIEF COMPLAINT: Patient presents with: CARD Follow Up Annual IMPRESSION / PLAN: Mild coronary artery disease of the proximal LAD and proximal left circumflex distribution (detected by CTA coronaries) Possible PFO (detected by cardiac CT) Supraventricular tachycardia (SVT) Discussed CTA coronaries findings with the patient. There is only mild disease at the proximal LAD and proximal circumflex distribution. He is already taking aspirin 81 mg daily and atorvastatin 20 mg daily. LDL is below 70. Reassured about the PFO which is prevalent and approximately 25-30% in population and no further workup is needed for that at this time. Short runs of SVT on event monitor with no evidence of atrial fibrillation. He does not have symptoms related to the SVT. No treatment needed at this time for that. Counseled for lifestyle and diet modifications. Suggested moderate-intensity aerobic activity for a minimum of 30 minutes, five times per week or vigorous-intensity aerobic activity for a minimum of 20 minutes, three times per week. Counseled to follow DASH and Mediterranean diet. He will continue to follow-up with his primary care physician. Follow Up Instructions Return if symptoms worsen or fail to improve. Hypertension, essential Assessment: controlled on rx Last 14 BP Last 14 Encounter BP Readings: Date: BP: 10/12/2023 140/92 08/25/2023 120/72 06/21/2023 123/78 06/14/2023 136/80 05/18/2023 120/60 01/26/2023 128/88 01/10/2023 126/82 01/10/2023 122/81 12/31/2022 134/82 11/12/2022 104/70 10/29/2022 138/82 03/12/2022 116/72 12/29/2021 116/88 09/22/2021 112/78 Hypertriglyceridemia Assessment: c/w statin Type 2 diabetes mellitus without complication, without long-term current use of insulin (HCC) Assessment: controlled on oral agent Hemoglobin A1C Date Value 06/16/2023 5.8 % 08/14/2021 7.0 07/02/2020 6.1 % Recurrent major depressive disorder, in partial remission (HCC) Assessment: hx, no current tx, stable per pt Social phobia Assessment: rx as needed Postoperative retention of urine Assessment: hx the last two surgeries Benign prostatic hyperplasia with lower urinary tract symptoms Assessment: controlled on rx Elevated bilirubin Assessment: PCP monitoring, see comment below from PCP's progress notes ?chronic versus intermittent mild elevation sicne childhood--benign condition History of kidney stones Assessment: hx lithotripsy A-fib (HCC) Assessment: remote hx post-op went into afib on induction for this 2nd hip scope Torres Activity Status Index: METS: Climb a flight of stairs or walk up a hill (5.50 METs) DASI Score: 5.5 Patient denies any chest pain or undue shortness of breath with the above physical activity. Clinical Frailty Scale: 3. Well, with treated comorbid disease STOP-Bang Score: Has or is being treated for high blood pressure Male patient Denies snoring loudly Denies feeling tired, fatigued, or sleepy during the daytime Has not been observed to stop breathing or choking/gasping during sleep BMI less than or equal to 35 kg/m^2 Patient 50 years old or younger Does not have a large neck STOP-Bang Score: 2 [id number] Score: Age: <65 Sex: male CHF history: No Hypertension history: Yes Stroke/TIA/thromboembolism history: No Vascular disease history: No Diabetes history: Yes [id number] Score: 2 ARISCAT Score: Age: <=50 Preoperative SpO2: >=96% Respiratory infection in the last month: No Preoperative anemia: Yes Surgical incision: peripheral Duration of surgery: >3 hrs Emergency procedure: No ARISCAT Score: 34 ANESTHESIA FINDINGS: Intubation History: No history of difficult intubation Significant Anesthesia Considerations: post-op urinary retention potential postop nausea/vomiting Airway History: No history of difficult airway I - PHYSICAL EVALUATION AIRWAY Patient intubated: No. Tracheostomy tube not present Mallampati: III. TM distance: >3 FB. Neck ROM: full ROM without neurological symptoms. Mouth opening: adequate. Short neck: no. Thick neck: no Mcdaniel present: no Lip Bite Test: I Microretrognathia/Micronagthia/Re cessed Chin: No DENTAL Dental findings: teeth intact. Additional comments: +crowns/back. II - ANESTHESIA PLAN Anesthetic Plan: other Beta Trinity Monitoring Plan Post Procedure Analgesic Plan Informed Consent Anesthetic risks, benefits, alternatives, personnel and consent discussed: yes. Patient / Responsible Alliance Party agrees to proceed: yes Patient / Surrogate agrees to blood products: Yes Discussed the possibility of lip / dental damage: yes Prepared for Surgery: optimally prepared for surgery, pending [see comment]. labs CONSULTS: Patient does not require consults for optimization at this time Planned Anesthetic: other anesthesia choice The Following Tests/Procedures Have Been Initiated: Orders Placed This Encounter >CBC + AUTO DIFF Standing Status: Future Number of Occurrences: 1 Standing Expiration Date: 01/11/2024 >BMP Standing Status: Future Number of Occurrences: 1 Standing Expiration Date: 01/11/2024 REASON FOR VISIT: Gala Yun is a 43 year old male who is scheduled for Procedure(s): ARTHROPLASTY HIP (Right) at the request of Dr. Holland Mo for consultation. My final recommendation will be communicated back to the requesting physician by way of shared medical record or letter. Subjective The patient has the following: ACTIVE PROBLEM LIST Panic Social Phobia Fh: Hemochromatosis Dysthymia Recurrent Major Depressive Disorder, in Partial Remission (Hcc) Adhd (Attention Deficit Hyperactivity Disorder), Inattentive Type Body Dysmorphic Disorder Type 2 Diabetes Mellitus Without Complication, Without Long-Term Current Use of Insulin (Hcc) Hypertension, Essential Night Sweats Vitamin D Deficiency Hypertriglyceridemia Coronary Artery Disease Involving [place] Coronary Artery of [place] Heart Without Angina Pectoris Postoperative Retention of Urine Benign Prostatic Hyperplasia With Lower Urinary Tract Symptoms Elevated Bilirubin History of Kidney Stones A-Fib (Hcc) COVID-19 Immunization Status Covid-19 Vaccine (Series Information) Completed 01/24/2023 Imm Admin: COVID-19 vaccine, age 12+ yr, 2022- season (MODERNA) 01/21/2022 Imm Admin: COVID-19 vaccine, age 12+ yr, bivalent (PFIZER-BIONTECH) 07/04/2021 Imm Admin: COVID-19 original vaccine, age 12+ yr, monovalent (PFIZER-BIONTECH - PURPLE TOP) Only the first 3 history entries have been loaded, but more history exists. CHIEF COMPLAINT: Pre-op exam HPI: Gala Yun is a 43 year old seen for PAC due to scheduled above surgery because of OA hip. 06/14/2023, Dr. Holland Mo HPI: Gala Yun is a 43 year old patient with the presenting complaint of New of the Right Hip. Gala Yun has had progressive problems with the hip(s) constantly over the past 6+ month(s). The problem began limiting activities 1-6 months ago. Gala reports a current pain level of 5 (Hip-Right). He describes the pain as Aching, Shooting, Throbbing. The pain is Continuous . surgical intervention x2. FALL RISK: Gala is not currently at risk for falls. FUNCTIONAL STATUS: Walk a block or two on level ground (2.75 METs) REVIEW OF SYSTEMS: General: No weight loss, malaise or fevers. Neurological: No history of TIA's, stroke, PHYSICIAN INDUSTRIAL tumor, impaired sensorium, hemiplegia, paraplegia or quadraplegia. No neurological symptoms or problems. Respiratory: +former smoker 0.5ppd/10 years. No history of current cough or dyspnea, or pneumonia in the past 6 weeks. No history of respiratory/pulmonary symptoms or problems. Cardiovascular: Positive for: anticoagulation therapy (ASA), arrhythmia, atrial fibrillation (remote post-op), CAD, hyperlipidemia and hypertension Patient's last office visit The following tests and/or procedures were not performed: cardiac stents. Negative for: chest pain, CHF, congenital heart defect, DVT/PE, recent ME, murmur/valvular heart disease, PVD, open heart surgery and valve surgery. GI: Positive for: GERD (rx as needed) Negative for: abdominal pain, dysphagia, hepatitis, irritable bowel syndrome, inflammatory bowel disease, liver disease, nausea, pancreatitis, vomiting and ETOH >2 drinks/day. : Positive for: BPH (on rx) and nephrolithiasis (hx, intervention). Negative for: renal failure and urinary tract infection. Endocrine: Positive for: diabetes mellitus. Patient's diabetes mellitus is controlled by oral agents. Negative for: hypothyroidism. Hematology: Positive for: chronic anti-coagulation/platelet meds. Patient is on anti-coagulation/platelet medication(s): Aspirin. Negative for: anemia, bruises/bleeds easily and transfusion of at least 4 units within 72 hours prior to surgery. Oncology: BCC s/p excision Psych: Positive for: ADHD and anxiety (rx as needed). Musculoskeletal: See HPI. Positive for: back pain. Skin: Negative for lesions, rash and itching. PAST MEDICAL HISTORY Diagnosis Date Atypical chest pain 07/17/2015 Diabetes (HCC) Elevated bilirubin ?chronic versus intermittent mild elevation sicne childhood--benign condition Hyperlipidemia Kidney stone on left side had to have blasted and stented (treated Dr. Mittal) Vitamin D deficiency PAST SURGICAL HISTORY Procedure Laterality Date EXTENSIVE HIP SURGERY Right 09/17/2021 PAST SURGICAL HISTORY OF 04/04/2009 kidney stone, blasted, stent placed PAST SURGICAL HISTORY OF 04/19/2013 Left elbow lateral epicondylar release, Dr. Damon PAST SURGICAL HISTORY OF Right Athroscopy FAMILY HISTORY Problem Relation Age of Onset Coronary Artery Disease Father CABG at age 58 None Mother None Sister None Brother Ischemic Heart Disease Paternal Grandmother Stroke Paternal Grandmother Stroke Maternal Grandmother other (leukemia [Other]) Paternal Grandfather Social History Tobacco Use Smoking status: Former Smokeless tobacco: Never Vaping Use Vaping Use: Never used Substance Use Topics Alcohol use: Not Currently Comment: 1-2 times a week Drug use: Yes Frequency: 3.0 times per week Types: Marijuana Comment: Several times per week Prior to Admission medications as of 10/12/23 0968 Medication Sig Last Dose Taking ALPRAZolam (XANAX) 1 mg tablet Take 1 tablet by mouth once daily as needed for anxiety for up to 30 days. Taking Yes aspirin, enteric coated (ASPIRIN, ENTERIC COATED) 81 mg EC tablet Take 1 tablet by mouth once daily. Taking Yes metFORMIN ER (GLUCOPHAGE XR) 500 mg 24 hr tablet Take 4 tablets by mouth daily with breakfast. Taking Yes lisinopril (ZESTRIL) 10 mg tablet Take 1 tablet by mouth once daily. Taking Yes alfuzosin SR (UROXATRAL) 10 mg 24 hr tablet Take 1 tablet by mouth daily at bedtime. Taking Yes atorvastatin (LIPITOR) 20 mg tablet Take 1 tablet by mouth once daily. Taking Yes Cholecalciferol, Vitamin D3, (VITAMIN D-3) 2,000 unit cap Take 1 capsule by mouth once daily. Taking Yes blood sugar diagnostic (BLOOD GLUCOSE TEST) test strip Test blood sugar(s) 1 times daily and as needed. Dx: Type 2 DM - Uncontrolled E11.9 Insulin: No Taking Yes Lancets lancets Test blood sugar(s) 1 times daily. Dx: Type 2 DM - Uncontrolled E11.65 Insulin: No Taking Yes No medication comments found. ALLERGIES Allergen Reactions Prednisone Intolerance Did not tolerate and would not take again--not sure the exact adverse effect. Can take other steroids Objective PHYSICAL EXAM: General: alert and oriented (x3) and healthy appearance. Pertinent negatives noted - not distressed. Skin: normal color, no rash or lesions. HEENT: EOM intact and pupils equal round. Pertinent negatives noted - no carotid bruit. Cardiovascular: regular rate and rhythm, normal S1 and S2, no rub, murmurs, or gallop. Respiratory: normal breath sounds, no wheezes or crackles. No chest wall deformity or tenderness. Abdomen: soft. Pertinent negatives noted - not tender. Extremities: no deformity, no edema or tenderness, no joint swelling or clubbing. Neurological: normal cognition and motor skills. Gait normal. No weakness or sensory deficit. PAIN ASSESSMENT: Pain Pain Level: 7 Pain Location: Hip-Right Description: Sharp, Dull, Radiating, Stabbing Duration Amount of Time: 7 Duration Units: Years Frequency: Continuous Intervention/Comfort measure: Cold, Heat VITALS: BP 140/92 Pulse 68 Temp (Src) 97.2 (Temporal) Resp 14 Ht 6' 6 (1.98m) Wt 238 lb (108.0kg) SpO2 97% BMI 27.51 kg/(m^2). Diagnostic tests reviewed for today's visit: Lab Value Units Date High Low HB 16.3 g/dL 06/16/2023 17.0 13.0 HCT 48.5 % 06/16/2023 51.0 39.0 WBC 5.05 k/uL 06/16/2023 11.00 3.70 PLT 158 k/uL 06/16/2023 400 150 NA 137 mmol/L 06/16/2023 144 136 K 4.1 mmol/L 06/16/2023 5.1 3.7 GLUC 124 mg/dL 06/16/2023 99 74 BUN 16 mg/dL 06/16/2023 24 9 CREAT 0.82 mg/dL 06/16/2023 1.22 0.73 PTSEC No results within date range. INR No results within date range. APTT No results within date range. ALT 23 U/L 06/16/2023 54 10 AST 25 U/L 06/16/2023 40 14 TBILI 2.9 mg/dL 06/16/2023 1.3 0.2 TSH No results within date range. Lab Value Units Date High Low HCGQT No results within date range. UHCG No results within date range. HCG, BODY* No results within date range. Lab Value Units Date High Low ABORHD No results within date range. ABSCREEN No results within date range. Hemoglobin A1C Date Value 06/16/2023 5.8 % 11/10/2022 5.9 % 02/04/2022 6.1 % 08/14/2021 7.0 07/02/2020 6.1 % 07/01/2018 5.2 % Hemoglobin A1C (POCT) (%) Date Value 03/07/2018 7.5 Recent Results (from the past 8760 hour(s)) ECG COMPLETE Collection Time: 01/26/23 9:27 AM Result Value Ventricular Rate 82 Atrial Rate 82 P-R Interval 142 QRS Duration 98 QT Interval 366 QTC Calculation (Bazett) 427 Calculated P [place] 40 Calculated R [place] 26 Calculated T [place] 49 Impression NORMAL SINUS RHYTHM POSSIBLE LEFT ATRIAL ENLARGEMENT BORDERLINE ECG Recent Results (from the past 67467 hour(s)) ECHO Collection Time: 02/28/23 2:31 PM Impression CONCLUSIONS: - Technically difficult exam due to body habitus. - Exam indication: Nonsustained atrial fibrillation - The left ventricle is normal in size. Left ventricular systolic function is normal. EF = 53 5% (2D 4-ch.) Normal left ventricular diastolic function. - The right ventricle is normal in size. Right ventricular systolic function is normal. - Ascending aorta diameter measured 3.6cm. - Exam was compared with the prior echocardiographic exam performed on 07/21/2018 (Stress). The ascending aorta diameter was measured at 3.4cm in 2019 compared to 3.6cm on today's study. * * * Final * * * Instructions Given to Patient: Instructions located in the after visit summary. Patient given verbal and written preop instructions and voices comprehension and compliance. SIGNATURE: Rosa M Dillard APRN.CNP PATIENT NAME: Gala Yun DATE: October 12, 2023 TIME: 9:20 AM PAGER/CONTACT #: [facility] 10-12-2023 History and physical note Images from the original note were not included. [facility] HISTORY AND PHYSICAL EXAMINATION SERVICE DATE: 10/12/2023 SERVICE TIME: 9:59 AM PRIMARY CARE PHYSICIAN: Vesta Stallworth MD Assessment Patient has the following medical conditions which may affect emilee-operative course: Coronary artery disease involving [place] coronary artery of [place] heart without angina pectoris Assessment: mild, non-obstructing per CTA recently, following cardilogy, last OV below Dr. Jeff, 08/25/2023 CHIEF COMPLAINT: Patient presents with: CARD Follow Up Annual IMPRESSION / PLAN: Mild coronary artery disease of the proximal LAD and proximal left circumflex distribution (detected by CTA coronaries) Possible PFO (detected by cardiac CT) Supraventricular tachycardia (SVT) Discussed CTA coronaries findings with the patient. There is only mild disease at the proximal LAD and proximal circumflex distribution. He is already taking aspirin 81 mg daily and atorvastatin 20 mg daily. LDL is below 70. Reassured about the PFO which is prevalent and approximately 25-30% in population and no further workup is needed for that at this time. Short runs of SVT on event monitor with no evidence of atrial fibrillation. He does not have symptoms related to the SVT. No treatment needed at this time for that. Counseled for lifestyle and diet modifications. Suggested moderate-intensity aerobic activity for a minimum of 30 minutes, five times per week or vigorous-intensity aerobic activity for a minimum of 20 minutes, three times per week. Counseled to follow DASH and Mediterranean diet. He will continue to follow-up with his primary care physician. Follow Up Instructions Return if symptoms worsen or fail to improve. Hypertension, essential Assessment: controlled on rx Last 14 BP Last 14 Encounter BP Readings: Date: BP: 10/12/2023 140/92 08/25/2023 120/72 06/21/2023 123/78 06/14/2023 136/80 05/18/2023 120/60 01/26/2023 128/88 01/10/2023 126/82 01/10/2023 122/81 12/31/2022 134/82 11/12/2022 104/70 10/29/2022 138/82 03/12/2022 116/72 12/29/2021 116/88 09/22/2021 112/78 Hypertriglyceridemia Assessment: c/w statin Type 2 diabetes mellitus without complication, without long-term current use of insulin ([facility]) Assessment: controlled on oral agent Hemoglobin A1C Date Value 06/16/2023 5.8 % 08/14/2021 7.0 07/02/2020 6.1 % Recurrent major depressive disorder, in partial remission ([facility]) Assessment: hx, no current tx, stable per pt Social phobia Assessment: rx as needed Postoperative retention of urine Assessment: hx the last two surgeries Benign prostatic hyperplasia with lower urinary tract symptoms Assessment: controlled on rx Elevated bilirubin Assessment: PCP monitoring, see comment below from PCP's progress notes ?chronic versus intermittent mild elevation sicne childhood--benign condition History of kidney stones Assessment: hx lithotripsy A-fib ([facility]) Assessment: remote hx post-op went into afib on induction for this 2nd hip scope Torres Activity Status Index: METS: Climb a flight of stairs or walk up a hill (5.50 METs) DASI Score: 5.5 Patient denies any chest pain or undue shortness of breath with the above physical activity. Clinical Frailty Scale: 3. Well, with treated comorbid disease STOP-Bang Score: Has or is being treated for high blood pressure Male patient Denies snoring loudly Denies feeling tired, fatigued, or sleepy during the daytime Has not been observed to stop breathing or choking/gasping during sleep BMI less than or equal to 35 kg/m^2 Patient 50 years old or younger Does not have a large neck STOP-Bang Score: 2 [id number] Score: Age: <65 Sex: male CHF history: No Hypertension history: Yes Stroke/TIA/thromboembolism history: No Vascular disease history: No Diabetes history: Yes [id number] Score: 2 ARISCAT Score: Age: <=50 Preoperative SpO2: >=96% Respiratory infection in the last month: No Preoperative anemia: Yes Surgical incision: peripheral Duration of surgery: >3 hrs Emergency procedure: No ARISCAT Score: 34 ANESTHESIA FINDINGS: Intubation History: No history of difficult intubation Significant Anesthesia Considerations: post-op urinary retention potential postop nausea/vomiting Airway History: No history of difficult airway I - PHYSICAL EVALUATION AIRWAY Patient intubated: No. Tracheostomy tube not present Mallampati: III. TM distance: >3 FB. Neck ROM: full ROM without neurological symptoms. Mouth opening: adequate. Short neck: no. Thick neck: no Mcdaniel present: no Lip Bite Test: I Microretrognathia/Micronagthia/Re cessed Chin: No DENTAL Dental findings: teeth intact. Additional comments: +crowns/back. II - ANESTHESIA PLAN Anesthetic Plan: other Beta Trinity Monitoring Plan Post Procedure Analgesic Plan Informed Consent Anesthetic risks, benefits, alternatives, personnel and consent discussed: yes. Patient / Responsible [facility] agrees to proceed: yes Patient / Surrogate agrees to blood products: Yes Discussed the possibility of lip / dental damage: yes Prepared for Surgery: optimally prepared for surgery, pending [see comment]. labs CONSULTS: Patient does not require consults for optimization at this time Planned Anesthetic: other anesthesia choice The Following Tests/Procedures Have Been Initiated: Orders Placed This Encounter >CBC + AUTO DIFF Standing Status: Future Number of Occurrences: 1 Standing Expiration Date: 01/11/2024 >BMP Standing Status: Future Number of Occurrences: 1 Standing Expiration Date: 01/11/2024 REASON FOR VISIT: Gala Yun is a 43 year old male who is scheduled for Procedure(s): ARTHROPLASTY HIP (Right) at the request of Dr. Holland Mo for consultation. My final recommendation will be communicated back to the requesting physician by way of shared medical record or letter. Subjective The patient has the following: ACTIVE PROBLEM LIST Panic Social Phobia Fh: Hemochromatosis Dysthymia Recurrent Major Depressive Disorder, in Partial Remission (Hcc) Adhd (Attention Deficit Hyperactivity Disorder), Inattentive Type Body Dysmorphic Disorder Type 2 Diabetes Mellitus Without Complication, Without Long-Term Current Use of Insulin (Hcc) Hypertension, Essential Night Sweats Vitamin D Deficiency Hypertriglyceridemia Coronary Artery Disease Involving Resighini Coronary Artery of [place] Heart Without Angina Pectoris Postoperative Retention of Urine Benign Prostatic Hyperplasia With Lower Urinary Tract Symptoms Elevated Bilirubin History of Kidney Stones A-Fib (Hcc) COVID-19 Immunization Status Covid-19 Vaccine (Series Information) Completed 01/24/2023 Imm Admin: COVID-19 vaccine, age 12+ yr, 2022- season (MODERNA) 01/21/2022 Imm Admin: COVID-19 vaccine, age 12+ yr, bivalent (PFIZER-BIONTECH) 07/04/2021 Imm Admin: COVID-19 original vaccine, age 12+ yr, monovalent (PFIZER-BIONTECH - PURPLE TOP) Only the first 3 history entries have been loaded, but more history exists. CHIEF COMPLAINT: Pre-op exam HPI: Gala Yun is a 43 year old seen for PAC due to scheduled above surgery because of OA hip. 06/14/2023, Dr. Holland Mo HPI: Gala Yun is a 43 year old patient with the presenting complaint of New of the Right Hip. Gala Yun has had progressive problems with the hip(s) constantly over the past 6+ month(s). The problem began limiting activities 1-6 months ago. Gala reports a current pain level of 5 (Hip-Right). He describes the pain as Aching, Shooting, Throbbing. The pain is Continuous . surgical intervention x2. FALL RISK: Gala is not currently at risk for falls. FUNCTIONAL STATUS: Walk a block or two on level ground (2.75 METs) REVIEW OF SYSTEMS: General: No weight loss, malaise or fevers. Neurological: No history of TIA's, stroke, PHYSICIAN INDUSTRIAL tumor, impaired sensorium, hemiplegia, paraplegia or quadraplegia. No neurological symptoms or problems. Respiratory: +former smoker 0.5ppd/10 years. No history of current cough or dyspnea, or pneumonia in the past 6 weeks. No history of respiratory/pulmonary symptoms or problems. Cardiovascular: Positive for: anticoagulation therapy (ASA), arrhythmia, atrial fibrillation (remote post-op), CAD, hyperlipidemia and hypertension Patient's last office visit The following tests and/or procedures were not performed: cardiac stents. Negative for: chest pain, CHF, congenital heart defect, DVT/PE, recent ME, murmur/valvular heart disease, PVD, open heart surgery and valve surgery. GI: Positive for: GERD (rx as needed) Negative for: abdominal pain, dysphagia, hepatitis, irritable bowel syndrome, inflammatory bowel disease, liver disease, nausea, pancreatitis, vomiting and ETOH >2 drinks/day. : Positive for: BPH (on rx) and nephrolithiasis (hx, intervention). Negative for: renal failure and urinary tract infection. Endocrine: Positive for: diabetes mellitus. Patient's diabetes mellitus is controlled by oral agents. Negative for: hypothyroidism. Hematology: Positive for: chronic anti-coagulation/platelet meds. Patient is on anti-coagulation/platelet medication(s): Aspirin. Negative for: anemia, bruises/bleeds easily and transfusion of at least 4 units within 72 hours prior to surgery. Oncology: BCC s/p excision Psych: Positive for: ADHD and anxiety (rx as needed). Musculoskeletal: See HPI. Positive for: back pain. Skin: Negative for lesions, rash and itching. PAST MEDICAL HISTORY Diagnosis Date Atypical chest pain 07/17/2015 Diabetes (HCC) Elevated bilirubin ?chronic versus intermittent mild elevation sicne childhood--benign condition Hyperlipidemia Kidney stone on left side had to have blasted and stented (treated Dr. Mittal) Vitamin D deficiency PAST SURGICAL HISTORY Procedure Laterality Date EXTENSIVE HIP SURGERY Right 09/17/2021 PAST SURGICAL HISTORY OF 04/04/2009 kidney stone, blasted, stent placed PAST SURGICAL HISTORY OF 04/19/2013 Left elbow lateral epicondylar release, Dr. Damon PAST SURGICAL HISTORY OF Right Athroscopy FAMILY HISTORY Problem Relation Age of Onset Coronary Artery Disease Father CABG at age 58 None Mother None Sister None Brother Ischemic Heart Disease Paternal Grandmother Stroke Paternal Grandmother Stroke Maternal Grandmother other (leukemia [Other]) Paternal Grandfather Social History Tobacco Use Smoking status: Former Smokeless tobacco: Never Vaping Use Vaping Use: Never used Substance Use Topics Alcohol use: Not Currently Comment: 1-2 times a week Drug use: Yes Frequency: 3.0 times per week Types: Marijuana Comment: Several times per week Prior to Admission medications as of 10/12/23 0949 Medication Sig Last Dose Taking ALPRAZolam (XANAX) 1 mg tablet Take 1 tablet by mouth once daily as needed for anxiety for up to 30 days. Taking Yes aspirin, enteric coated (ASPIRIN, ENTERIC COATED) 81 mg EC tablet Take 1 tablet by mouth once daily. Taking Yes metFORMIN ER (GLUCOPHAGE XR) 500 mg 24 hr tablet Take 4 tablets by mouth daily with breakfast. Taking Yes lisinopril (ZESTRIL) 10 mg tablet Take 1 tablet by mouth once daily. Taking Yes alfuzosin SR (UROXATRAL) 10 mg 24 hr tablet Take 1 tablet by mouth daily at bedtime. Taking Yes atorvastatin (LIPITOR) 20 mg tablet Take 1 tablet by mouth once daily. Taking Yes Cholecalciferol, Vitamin D3, (VITAMIN D-3) 2,000 unit cap Take 1 capsule by mouth once daily. Taking Yes blood sugar diagnostic (BLOOD GLUCOSE TEST) test strip Test blood sugar(s) 1 times daily and as needed. Dx: Type 2 DM - Uncontrolled E11.9 Insulin: No Taking Yes Lancets lancets Test blood sugar(s) 1 times daily. Dx: Type 2 DM - Uncontrolled E11.65 Insulin: No Taking Yes No medication comments found. ALLERGIES Allergen Reactions Prednisone Intolerance Did not tolerate and would not take again--not sure the exact adverse effect. Can take other steroids Objective PHYSICAL EXAM: General: alert and oriented (x3) and healthy appearance. Pertinent negatives noted - not distressed. Skin: normal color, no rash or lesions. HEENT: EOM intact and pupils equal round. Pertinent negatives noted - no carotid bruit. Cardiovascular: regular rate and rhythm, normal S1 and S2, no rub, murmurs, or gallop. Respiratory: normal breath sounds, no wheezes or crackles. No chest wall deformity or tenderness. Abdomen: soft. Pertinent negatives noted - not tender. Extremities: no deformity, no edema or tenderness, no joint swelling or clubbing. Neurological: normal cognition and motor skills. Gait normal. No weakness or sensory deficit. PAIN ASSESSMENT: Pain Pain Level: 7 Pain Location: Hip-Right Description: Sharp, Dull, Radiating, Stabbing Duration Amount of Time: 7 Duration Units: Years Frequency: Continuous Intervention/Comfort measure: Cold, Heat VITALS: BP 140/92 Pulse 68 Temp (Src) 97.2 (Temporal) Resp 14 Ht 6' 6 (1.98m) Wt 238 lb (108.0kg) SpO2 97% BMI 27.51 kg/(m^2). Diagnostic tests reviewed for today's visit: Lab Value Units Date High Low HB 16.3 g/dL 06/16/2023 17.0 13.0 HCT 48.5 % 06/16/2023 51.0 39.0 WBC 5.05 k/uL 06/16/2023 11.00 3.70 PLT 158 k/uL 06/16/2023 400 150 NA 137 mmol/L 06/16/2023 144 136 K 4.1 mmol/L 06/16/2023 5.1 3.7 GLUC 124 mg/dL 06/16/2023 99 74 BUN 16 mg/dL 06/16/2023 24 9 CREAT 0.82 mg/dL 06/16/2023 1.22 0.73 PTSEC No results within date range. INR No results within date range. APTT No results within date range. ALT 23 U/L 06/16/2023 54 10 AST 25 U/L 06/16/2023 40 14 TBILI 2.9 mg/dL 06/16/2023 1.3 0.2 TSH No results within date range. Lab Value Units Date High Low HCGQT No results within date range. UHCG No results within date range. HCG, BODY* No results within date range. Lab Value Units Date High Low ABORHD No results within date range. ABSCREEN No results within date range. Hemoglobin A1C Date Value 06/16/2023 5.8 % 11/10/2022 5.9 % 02/04/2022 6.1 % 08/14/2021 7.0 07/02/2020 6.1 % 07/01/2018 5.2 % Hemoglobin A1C (POCT) (%) Date Value 03/07/2018 7.5 Recent Results (from the past 8760 hour(s)) ECG COMPLETE Collection Time: 01/26/23 9:27 AM Result Value Ventricular Rate 82 Atrial Rate 82 P-R Interval 142 QRS Duration 98 QT Interval 366 QTC Calculation (Bazett) 427 Calculated P [place] 40 Calculated R [place] 26 Calculated T [place] 49 Impression NORMAL SINUS RHYTHM POSSIBLE LEFT ATRIAL ENLARGEMENT BORDERLINE ECG Recent Results (from the past 24677 hour(s)) ECHO Collection Time: 02/28/23 2:31 PM Impression CONCLUSIONS: - Technically difficult exam due to body habitus. - Exam indication: Nonsustained atrial fibrillation - The left ventricle is normal in size. Left ventricular systolic function is normal. EF = 53 5% (2D 4-ch.) Normal left ventricular diastolic function. - The right ventricle is normal in size. Right ventricular systolic function is normal. - Ascending aorta diameter measured 3.6cm. - Exam was compared with the prior echocardiographic exam performed on 07/21/2018 (Stress). The ascending aorta diameter was measured at 3.4cm in 2019 compared to 3.6cm on today's study. * * * Final * * * Instructions Given to Patient: Instructions located in the after visit summary. Patient given verbal and written preop instructions and voices comprehension and compliance. SIGNATURE: Rosa M Dillard APRN.CNP PATIENT NAME: Gala Yun DATE: October 12, 2023 TIME: 9:20 AM PAGER/CONTACT #: documented in this encounter [facility] 09-08-2023 Telephone encounter Note The following approved medication requests have been transmitted electronically. Requested Prescriptions Signed Prescriptions Disp Refills ALPRAZolam (XANAX) 1 mg tablet 30 tablet 0 Sig: Take 1 tablet by mouth once daily as needed for anxiety for up to 30 days. Authorizing Provider: VESTA STALLWORTH MD [facility] 09-08-2023 Miscellaneous Notes The following approved medication requests have been transmitted electronically. Requested Prescriptions Signed Prescriptions Disp Refills ALPRAZolam (XANAX) 1 mg tablet 30 tablet 0 Sig: Take 1 tablet by mouth once daily as needed for anxiety for up to 30 days. Authorizing Provider: VESTA STALLWORTH MD Patient has been identified by name and date of : Yes Patient phones for refill(s): Requested Prescriptions Pending Prescriptions Disp Refills ALPRAZolam (XANAX) 1 mg tablet 30 tablet 0 Sig: Take 1 tablet by mouth once daily as needed for anxiety for up to 30 days. Date of last office visit in primary care: 05/18/2023 Date of next office visit in primary care: 11/23/2023 Please advise. Thank you. Judy Box LPN. documented in this encounter [facility] 09-07-2023 Telephone encounter Note Patient has been identified by name and date of : Yes Patient phones for refill(s): Requested Prescriptions Pending Prescriptions Disp Refills ALPRAZolam (XANAX) 1 mg tablet 30 tablet 0 Sig: Take 1 tablet by mouth once daily as needed for anxiety for up to 30 days. Date of last office visit in primary care: 05/18/2023 Date of next office visit in primary care: 11/23/2023 Please advise. Thank you. Judy Box LPN. [facility] 08-25-2023 History of Present illness Narrative Images from the original note were not included. Heart and Vascular [place] [facility] Department of Cardiovascular Medicine SECTION OF [facility] CARDIOLOGY/[facility] OUTPATIENT VISIT DATE August 25, 2023 OUTPATIENT VISIT TYPE ESTABLISHED PATIENT Name: Gala Yun : 1980 Date: August 25, 2023 PRIMARY CARE PHYSICIAN: Vesta Stallworth [address] [place] [address] REFERRING PHYSICIAN: Tiara Ball [address] [facility] [address] CHIEF COMPLAINT: Patient presents with: CARD Follow Up Annual IMPRESSION / PLAN: Mild coronary artery disease of the proximal LAD and proximal left circumflex distribution (detected by CTA coronaries) Possible PFO (detected by cardiac CT) Supraventricular tachycardia (SVT) Discussed CTA coronaries findings with the patient. There is only mild disease at the proximal LAD and proximal circumflex distribution. He is already taking aspirin 81 mg daily and atorvastatin 20 mg daily. LDL is below 70. Reassured about the PFO which is prevalent and approximately 25-30% in population and no further workup is needed for that at this time. Short runs of SVT on event monitor with no evidence of atrial fibrillation. He does not have symptoms related to the SVT. No treatment needed at this time for that. Counseled for lifestyle and diet modifications. Suggested moderate-intensity aerobic activity for a minimum of 30 minutes, five times per week or vigorous-intensity aerobic activity for a minimum of 20 minutes, three times per week. Counseled to follow DASH and Mediterranean diet. He will continue to follow-up with his primary care physician. Follow Up Instructions Return if symptoms worsen or fail to improve. ORDERS FOR TODAY'S VISIT: No orders found for this visit on 08/25/23. HISTORY OF PRESENT ILLNESS: Gala Yun is an 42 year old male with history of mild coronary artery disease of the proximal LAD and proximal left circumflex distribution (detected by CTA coronaries), possible PFO (detected by cardiac CT), SVT, type 2 diabetes mellitus with A1c of 5.8, hypertension, hyperlipidemia presented today for a follow up visit. First evaluation was on 05/29/2022. He was seen after having a prostatic procedure. He had prostatic procedure in an outside hospital and reportedly atrial fibrillation was noted on telemetry after surgery. They could not capture at with ECG as per patient because it resolved. We ordered event monitor which showed episodes of SVT, but no evidence of atrial fibrillation. Echo was unremarkable. Treadmill stress test showed ST depression. CTA coronaries showed mild coronary artery disease in the proximal LAD and proximal left circumflex distribution and possible PFO. He has been doing well since last visit. He denies chest pain, shortness of breath, palpitations, dizziness, syncope, or swelling lower extremities. No previous history of coronary artery disease, cardiomyopathy, arrhythmias, or valve disease. Patient is non-smoker, drinks socially, and denies any recreational drugs use. 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 Mittal) Vitamin D deficiency PAST SURGICAL HISTORY Procedure Laterality Date EXTENSIVE HIP SURGERY Right 09/17/2021 PAST SURGICAL HISTORY OF 04/04/2009 kidney stone, blasted, stent placed PAST SURGICAL HISTORY OF 04/19/2013 Left elbow lateral epicondylar release, Dr. Damon PAST SURGICAL HISTORY OF Right Athroscopy SOCIAL HISTORY Social History Tobacco Use Smoking status: Former Smokeless tobacco: Never Vaping Use Vaping Use: Never used Substance Use Topics Alcohol use: Yes Alcohol/week: 2.0 - 3.0 standard drinks of alcohol Types: 2 - 3 Glasses of Wine (5oz) per week Comment: 3-4 times a week Drug use: Yes Frequency: 3.0 times per week Types: Marijuana Comment: Several times per week FAMILY HISTORY Problem Relation Age of Onset Coronary Artery Disease Father CABG at age 58 None Mother None Sister None Brother Ischemic Heart Disease Paternal Grandmother Stroke Paternal Grandmother Stroke Maternal Grandmother other (leukemia [Other]) Paternal Grandfather ALLERGIES: ALLERGIES Allergen Reactions Prednisone Intolerance Did not tolerate and would not take again--not sure the exact adverse effect. Can take other steroids MEDICATIONS: iv contrast (will be provided with radiology test)^CTA Coronary. No IV access, insert saline lock prior to the sedation, infusion, injection for imaging exam. Discontinue saline lock post exam. If Pt. has a central line or IVAD, may access for administration according to line specific nursing protocol. Once exam is complete flush line and de-access according to line specific nursing protocol in the CT contrast administration guidelines link.^Disp: 1 Each^Rfl: 0 metoprolol tartrate, short acting, (LOPRESSOR) 50 mg tablet^Take one 50 mg tablet the evening prior to the CTA examination, take another 50 mg tablet the morning of the CTA examination.^Disp: 2 tablet^Rfl: 0 nitroglycerin sublingual (NITROQUICK) 0.3 mg SL tablet^Dissolve 1 tablet under the tongue one time only for 1 dose. To be administered in Radiology for CTA exam^Disp: 1 tablet^Rfl: 0 aspirin, enteric coated (ASPIRIN, ENTERIC COATED) 81 mg EC tablet^Take 1 tablet by mouth once daily.^Disp: ^Rfl: ALPRAZolam (XANAX) 1 mg tablet^Take 1 tablet by mouth once daily as needed for anxiety for up to 30 days. Do not start before June 02, 2023.^Disp: 30 tablet^Rfl: 0 metFORMIN ER (GLUCOPHAGE XR) 500 mg 24 hr tablet^Take 4 tablets by mouth daily with breakfast.^Disp: 360 tablet^Rfl: 3 lisinopril (ZESTRIL) 10 mg tablet^Take 1 tablet by mouth once daily.^Disp: 90 tablet^Rfl: 3 alfuzosin SR (UROXATRAL) 10 mg 24 hr tablet^Take 1 tablet by mouth daily at bedtime.^Disp: 90 tablet^Rfl: 3 atorvastatin (LIPITOR) 20 mg tablet^Take 1 tablet by mouth once daily.^Disp: 90 tablet^Rfl: 3 Cholecalciferol, Vitamin D3, (VITAMIN D-3) 2,000 unit cap^Take 1 capsule by mouth once daily.^Disp: ^Rfl: blood sugar diagnostic (BLOOD GLUCOSE TEST) test strip^Test blood sugar(s) 1 times daily and as needed. Dx: Type 2 DM - Uncontrolled E11.9 Insulin: No^Disp: 100 Strip^Rfl: 3 Lancets lancets^Test blood sugar(s) 1 times daily. Dx: Type 2 DM - Uncontrolled E11.65 Insulin: No^Disp: 100 Each^Rfl: 11 REVIEW OF SYSTEMS: All other review of systems, per history of present illness. PHYSICAL EXAMINATION: BP 120/72 Pulse 73 Wt 106.8 kg (235 lb 7.2 oz) SpO2 98% BMI 27.21 kg/m Last 2 Encounter Wt Readings: Date: Wt: 01/26/2023 107 kg (236 lb) 01/10/2023 107 kg (236 lb) General: Well appearing, in no acute distress. Skin: No clubbing, no cyanosis. Eyes: Extra ocular movements intact Oropharynx: No gross abnormalities Neck: No jugular venous distention, no carotid bruits. Lungs: Clear to auscultation bilaterally, no wheezing or rhonchi. Heart: Regular rhythm, PMI not displaced, S1, S2, no S3, no S4, no murmur. Abdomen: Soft, nontender, bowel sounds normal, no palpable organomegaly, no bruits. Extremities: No peripheral edema . +2 distal pulses bilaterally. Neuro: Oriented to person, place and time, alert, cooperative. CARDIOVASCULAR MEDICINE TESTING: ECG: Normal sinus rhythm, normal ECG Echocardiography 02/28/2023: CONCLUSIONS: - Technically difficult exam due to body habitus. - Exam indication: Nonsustained atrial fibrillation - The left ventricle is normal in size. Left ventricular systolic function is normal. EF = 53 5% (2D 4-ch.) Normal left ventricular diastolic function. - The right ventricle is normal in size. Right ventricular systolic function is normal. - Ascending aorta diameter measured 3.6cm. Stress treadmill echocardiography 2019: CONCLUSIONS: - Technically difficult exam due to body habitus. - Exam indication: Abnormal ECG - The exercise stress echo was negative for ischemia at 96 % of MPHR (14.2 METS). - The left ventricle is normal in size. Left ventricular systolic function is normal. EF = 57 5% (2D biplane) Definity contrast used for endocardial border detection. Normal left ventricular diastolic function. - The right ventricle is normal in size. Right ventricular systolic function is normal. Event monitor 02/22/2023: There is 1 run of ventricular tachycardia occurred lasting 9 beats with a max rate of 118 bpm (avg 106 bpm). There are 2 Supraventricular Tachycardia runs occurred, the run with the fastest interval lasting 6 beats with a max rate of 114 bpm (avg 107 bpm); the run with the fastest interval was also the longest. Triggered events correlated with sinus rhythm. No evidence of atrial fibrillation. CTA coronaries 06/21/2023: IMPRESSION: There is mild amount of calcified plaque in the proximal LAD and the proximal circumflex with minimal luminal stenosis. - CAD-RAD 1: Minimal luminal stenosis (1-24%) or plaque without stenosis. Minimal non-obstructive CAD., - Overall Plaque [place]: P1: mild amount of plaque -The aortic root is borderline dilated measuring 3.8 cm. -There is mild dilatation of the main pulmonary artery measuring 3.0 cm. - Small linear structure at the interatrial septum, most consistent with the foramen ovale with [id number] extravasation of contrast Latest Ref Rng 11/10/2022 Cholesterol, Total <200 mg/dL 120 Triglyceride <150 mg/dL 234 (H) HDL Cholesterol >39 mg/dL 34 (L) Non HDL Cholesterol <130 mg/dL 86 Fasting Time hrs 12 VLDL Cholesterol <30 mg/dL 47 (H) TC:HDL Ratio <5.10 3.53 LDL Cholesterol <100 mg/dL 39 LDL:HDL Ratio <2.54 1.15 Legend: (H) High (L) Low I have personally reviewed the ECG and the imaging studies. Jasmina Rincon MD MPH [facility] Staff [employer] Admin [facility] Heart, Vascular, and Thoracic [place] [facility] documented in this encounter [facility] 08-25-2023 Note HNO ID: [id number] Author: JASMINA RINCON MD Service: ? Author Type: Physician Type: Progress Notes Filed: 08/25/2023 09:51 Note Text: [facility] V[facility] [place] [facility] Department of Cardiovascular Medicine [facility] OUTPATIENT VISIT DATE August 25, 2023 OUTPATIENT VISIT TYPE ESTABLISHED PATIENT Name: Gala Yun : 1980 Date: August 25, 2023 PRIMARY CARE PHYSICIAN: Vesta Stallworth [address] [place] [address] REFERRING PHYSICIAN: Tiara Ball [address] [facility] [address] CHIEF COMPLAINT: Patient presents with: CARD Follow Up Annual IMPRESSION / PLAN: Mild coronary artery disease of the proximal LAD and proximal left circumflex distribution (detected by CTA coronaries) Possible PFO (detected by cardiac CT) Supraventricular tachycardia (SVT) Discussed CTA coronaries findings with the patient. There is only mild disease at the proximal LAD and proximal circumflex distribution. He is already taking aspirin 81 mg daily and atorvastatin 20 mg daily. LDL is below 70. Reassured about the PFO which is prevalent and approximately 25-30% in population and no further workup is needed for that at this time. Short runs of SVT on event monitor with no evidence of atrial fibrillation. He does not have symptoms related to the SVT. No treatment needed at this time for that. Counseled for lifestyle and diet modifications. Suggested moderate-intensity aerobic activity for a minimum of 30 minutes, five times per week or vigorous-intensity aerobic activity for a minimum of 20 minutes, three times per week. Counseled to follow DASH and Mediterranean diet. He will continue to follow-up with his primary care physician. Follow Up Instructions Return if symptoms worsen or fail to improve. ORDERS FOR TODAY'S VISIT: No orders found for this visit on 08/25/23. HISTORY OF PRESENT ILLNESS: Gala Yun is an 42 year old male with history of mild coronary artery disease of the proximal LAD and proximal left circumflex distribution (detected by CTA coronaries), possible PFO (detected by cardiac CT), SVT, type 2 diabetes mellitus with A1c of 5.8, hypertension, hyperlipidemia presented today for a follow up visit. First evaluation was on 05/29/2022. He was seen after having a prostatic procedure. He had prostatic procedure in an outside hospital and reportedly atrial fibrillation was noted on telemetry after surgery. They could not capture at with ECG as per patient because it resolved. We ordered event monitor which showed episodes of SVT, but no evidence of atrial fibrillation. Echo was unremarkable. Treadmill stress test showed ST depression. CTA coronaries showed mild coronary artery disease in the proximal LAD and proximal left circumflex distribution and possible PFO. He has been doing well since last visit. He denies chest pain, shortness of breath, palpitations, dizziness, syncope, or swelling lower extremities. No previous history of coronary artery disease, cardiomyopathy, arrhythmias, or valve disease. Patient is non-smoker, drinks socially, and denies any recreational drugs use. 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 Mittal) Vitamin D deficiency PAST SURGICAL HISTORY Procedure Laterality Date EXTENSIVE HIP SURGERY Right 09/17/2021 PAST SURGICAL HISTORY OF 04/04/2009 kidney stone, blasted, stent placed PAST SURGICAL HISTORY OF 04/19/2013 Left elbow lateral epicondylar release, Dr. Damon PAST SURGICAL HISTORY OF Right Athroscopy SOCIAL HISTORY Social History Tobacco Use Smoking status: Former Smokeless tobacco: Never Vaping Use Vaping Use: Never used Substance Use Topics Alcohol use: Yes Alcohol/week: 2.0 - 3.0 standard drinks of alcohol Types: 2 - 3 Glasses of Wine (5oz) per week Comment: 3-4 times a week Drug use: Yes Frequency: 3.0 times per week Types: Marijuana Comment: Several times per week FAMILY HISTORY Problem Relation Age of Onset Coronary Artery Disease Father CABG at age 58 None Mother None Sister None Brother Ischemic Heart Disease Paternal Grandmother Stroke Paternal Grandmother Stroke Maternal Grandmother other (leukemia [Other]) Paternal Grandfather ALLERGIES: ALLERGIES Allergen Reactions Prednisone Intolerance Did not tolerate and would not take again--not sure the exact adverse effect. Can take other steroi (more content not included)... [facility] 07-12-2023 Discharge summary Note Date/Time July 12, 2023 2:23 pm [facility] Physical [facility] [address] [place] [address] [address] [place] [address] / REHABILITATION SERVICES DISCHARGE SUMMARY MR#: [id number] Acct: [id number] Name: GALA YUN Rep #: [id number] : 1980 43 From: Mati Blevins PT, ATC Referring Dr.: Dr. Zoran Mathews MD Statu s: REG RCR Insurance: [facility] SELF PAY INSURANCE Patient Information Patient Information: GALA YUN was seen in my office for initial evaluation on 01/17/23. The following Plan of Care was established for this patient: POC Established Initial Frequency: 2x /Week Initial Duration: 6 Weeks Anticipated Interventions Patient/Client Instruction: Educate patient on: Benefits of Fitness Program Therapeutic Exercise to Include: Strength training, Endurance training, Balance training, Coordination, Agility training, Body mechanics, Postural training, Flexibilty training, Gait and locomotor training, Neuromotor development, Passive ROM, Active ROM, Dynamic Lumbar Stabilization and Scapular Strength/Stabilization TENS: Yes Cryotherapy (ice pack, ice massage): Yes Thermo therapy (hot pack): Yes Vasopneumatic device: Yes Last Seen Last Seen: This patient was last seen in our office . Pertinent comments regarding their Physical therapy will appear below: Pt was treated for 17 PT visits for R hip pain through the date of 03/23/23. Pt has not returned through this date and is discontinued at this time. At this point I will be discontinuing this patient from physical therapy. I would be happy to see this patient again in the future if found appropriate by the physician. Thank you! Mati Blevins, PT, ATC Balance/Gait/Functional tests Balance/Special Test Scores Lower Extremity Functional Score: 52 <Electronically signed by Mati Blevins PT, ATC> 07/12/23 1423 CC: Dr. Zoran Mathews MD; Dr. Vesta Stallworth MD ~ [facility] Signed [facility] Work Phone: [phone]) 147-172603-19-2024 History of Present illness Narrative* Juliana Colon, RN - 06/21/2023 11:00 AM EDT Radiology Service Progress Note DATE OF SERVICE: June 21, 2023 TIME: 11:05 AM PATIENT WEIGHT: 231 LBS PATIENT IDENTITY VERIFICATION COMPLETED USING TWO (2) STANDARD IDENTIFIERS: Name and Date of confirmed by patient verbally and Name and Date of confirmed by identification band. FALL SCREENING: Has the patient had 2 falls in the last year or 1 fall with injury or currently using an Ambulatory Assistive Device (Walker, Cane, Wheelchair, Crutches, etc.)? No PATIENT GENDER DATA: Male ALLERGIES: Reviewed and unchanged CONTRAST ALLERGY: No EXAM: CT -CONTRAST INDUCED NEPHROPATHY RISK FACTORS: Diabetic: metformin CREATININE: Creatinine Date Value Ref Range Status 06/16/2023 0.82 0.73 - 1.22 mg/dL Final 11/10/2022 0.93 0.73 - 1.22 mg/dL Final 02/04/2022 0.87 0.73 - 1.22 mg/dL Final Estimated Glomerular Filtration Rate Date Value Ref Range Status 06/16/2023 111 >=60 mL/min/1.73m Final Comment: Estimated Glomerular Filtration Rate (eGFR) is calculated using the 2020 CKD-EPI creatinine equation. This equation utilizes serum creatinine, sex, and age as parameters. The creatinine assay has traceable calibration to isotope dilution- mass spectrometry. Refer to KDIGO guidelines for clinical interpretation. In patients with unstable renal function, e.g. those with acute kidney injury, the eGFRmay not accurately reflect actual GFR. eGFR- Date Value Ref Range Status 07/02/2020 >60 Final P.O.C.T. RESULTS: N/A June 21, 2023 TREATMENT: No Hydration needed. IV SITE: Ambulatory: A peripheral IV was started in the Left antecubital site with a Angio cath: 20gauge. and A Saline lock was inserted per protocol IV SITE APPEARANCE: Clean,Dry and Intact PROCEDURE TYPE: CT: Beta Blocking and CT: NTG SL PATIENT SCREENING: CHF: No, Heart Block: No, Aortic Stenosis: No, Aortic Insufficiency: No, Asthmatic/Bronchospastic Disease: No, IV Beta Blocking (Lopressor/Metoprolol Tartrate): No, and Medications that may enhance heart rate, slowing the effect of betablockers or calcium channel blockers: Yes Aortic Stenosis: No, Aortic Insufficiency: No, Constrictive Pericarditis: No, Hypertrophic/Restrictive Cardiomyopathy: No, Use of Phosphodiesterase - 5 Inhibitors: No, and Stress test planned for later today: No CARDIAC MEDICATIONS: Nitroglycerin 0.3 mg SL given PATIENT DISCHARGED TO: Home/Self Care SIGNED BY: Juliana Colon RN June 21, 2023 11:07 AM PATIENT EDUCATION RADIOLOGY TOPIC: Procedure/Surgery: Coronary CTA READINESS TO LEARN COGNITIVE ABILITY: Alert and oriented MOTIVATION TO LEARN: Interested FAMILY SUPPORT: None - Unavailable/disinterested INSTRUCTION PROVIDED TO: Patient PATIENT LEARNS BEST BY: Individual Instruction Verbal Instruction FACTORS AFFECTING LEARNING: None PHYSICAL LIMITATIONS AFFECTING LEARNING: None LEARNING RESPONSE Procedure: Angio Procedures: Radiology Procedures: Coronary CTA METHOD OF INSTRUCTION: Individual instruction Verbal instruction PATIENT / FAMILY RESPONSE: Verbalizes understanding of: Pre Procedure Instructions Post Procedure Instructions Worsening Condition FOLLOW-UP PLAN: Complete - No need for follow-up REFERRAL (RECOMMENDATION): None Electronically Signed By Juliana Colon RN SIGNATURE: Juliana Colon RN PATIENT NAME: Gala Yun DATE: June 21, 2023 TIME: 11:05 AM * Shefali Ross RT(R) - 06/21/2023 11:00 AM EDT Radiology Service Progress Note PATIENT NAME: Gala Yun DATE OF SERVICE: June 21, 2023 TIME: 11:15 AM PATIENT IDENTITY VERIFICATION COMPLETED USING TWO (2) IDENTIFIERS: Name and Date of confirmedby patient verbally and Name and Date of confirmed by identification band. FALL SCREENING: Has the patient had 2 falls in the last year or 1 fall with injury or currently using an Ambulatory Assistive Device (Walker, Cane, Wheelchair, Crutches, etc.)? No PATIENT GENDER DATA: Male PATIENT RELEVANT IMPLANT DATA REVIEWED: Yes PATIENT PRESENTS WITH AN IMPLANTABLE OR ATTACHED STUCCO MASON: No RADIOLOGY DEPARTMENT: CT; Exam(s) Completed: Cardiac PERIPHERAL IV DATA: Site assessment: Clean,Dry and Intact, Site disposition Discontinued SIGNED BY: RT David(R) June 21, 2023 11:15 AM documented in this encounterBarney [facility]03-17-[facility]24 History of Present illness Narrative* Ryanne Castillo RN - 06/19/2023 11:25 AM EDT Patient referred to Blood Management for pre-surgical optimization. Hgb 16.3 which exceeds Blood Management guidelines for intervention. documented in this encounterBarney [facility]03-15-2024 Miscellaneous Notes* Telephone Encounter - Sydney Evangelista - 06/17/2023 1:19 PM EDT Received Imaging disc by mail from [facility]. The disc is at [place] in [id number]. I am alone in the office today and am unable to bring it down to clinic for uploading. Will place in 404 nurse folder until someone comes up. documented in this encounterBarney Children'[facility]03-14-2024 Miscellaneous Notes* Telephone Encounter - Marya Wild RN - 06/16/2023 5:05 PM EDT Spoke with Gala. He would like to proceed with surgery on 10/19. Discussed PACC testing that will be scheduled sometime within 30 days of that date. He appreciated the follow up. Will schedule accordingly. * Telephone Encounter - Christina Miranda - 06/16/2023 9:05 AM EDT Gala called requesting a return call to schedule his surgery. Gala can be reached at documented in this encounterBarney Children'[facility] Center03-12-2024 NoteHNO ID: [id number] Author: HOLLAND MO MD Service: ? Author Type: Physician Type: Progress Notes Filed: 06/14/2023 10:28 Note Text: CONSULT ORTHOPAEDIC: HIP PRIMARY CARE PHYSICIAN: Vesta Stallworth MD REFERRING PROVIDER: Zoran Mathews MD [facility] [facility] [address] [facility] [address] ASSESSMENT AND PLAN Impression: Right Hip Moderate Degenerative Osteoarthritis, Post-Traumatic and Labral Tear Referred by Dr. Zoran Mathews for right hip pain in the setting of multiple previous right hip scope arthroplasty Patient last saw Dr. Mathews on June 10, 2023 for continued right hip pain. He was referred to our office to discuss a hip resurfacing. In the meantime, he was also ordered a right hip CSI. Some left hip pain but mostly right hip Pain location: Groin, lateral hip pain Activities creating pain: Walking, going down stairs/incline, sleeping, going from sitting to standing Therapy to date - Ice or Heat: Ice OTC/Rx Medications (Topical/PO): Ibuprofen, Creatinine is stable and WNL per last value on 11/10/2022 Brace/Splint: none Assist Device: not at this time Physical Therapy: Just finished PT in April, continues with stretching and daily HEP Injections: Cortisone in between scope procedures and was not super beneficial Surgery: 09/17/2021 -right hip scope with labral repair, acetabuloplasty, chondroplasty, synovectomy, microfracture, extensive femoroplasty, and capsular closure 12/23/2022-right hip scope revision with labral repair, chondroplasty, synovectomy, extensive lysis of adhesions, revision femoroplasty, capsular closure Recent BMI: 27.27 PMHx: - Diabetes, Type 2 - well controlled. Last A1c was 5.9 on 11/10/2022 - HTN - Anxiety/Depression Home Situation: Lives with and daughter Smoking Status: Patient is a former smoker, quit in 2008 Occupation: [employer], mostly sedentary Hobbies: wants to get back to golf, hiking Imaging: He will need direct lateral hip films and plain hip films with mag markers. Outside images reviewed today below. Diagnoses: (M16.11) Primary osteoarthritis of right hip (primary encounter diagnosis) (S73.191D) Tear of right acetabular labrum, subsequent encounter (D64.9) Anemia, unspecified type Based upon the evaluation today and after discussions with Gala Yun, Gala Yun has significant, worsening pain at the hip. This pain is increased with activity and weight bearing, and interferes with activities of daily living. These symptoms have continued despite a number of non-surgical measures, including a trial of oral pain medication (for at least 12 weeks). At this point, the patient will not benefit from further PT due to the severity of their condition. The patient's physical examination is consistent with limitations in range of motion, pain with passive range of motion, and an antalgic gait. These examination findings are corroborated by imaging findings of joint space narrowing, periarticular osteophyte formation, and subchondral sclerosis. The patient has been treated by the practice and all reasonable treatments have failed to control the disease, which causes significant pain and limits activities of daily living. The patient has failed conservative treatment and joint replacement surgery was discussed and agreed upon by both provider and patient. The patient has elected to proceed with surgical management to improve function and relieve pain refractory to non-surgical measures: right [place] hip resurfacing as evidenced by proximal femoral bone geometry and bone quality are sufficient for hip resurfacing, and the patient would otherwise recieve a conventional primary total hip replacement and progressive symptoms. Progressive symptoms include: Pain impacting sleep or causing fatigue Pain worsened by weight bearing Pain limiting ability to stay fit and healthy. We had a lengthy discussion regarding the risk and benefit of surgery, the alternatives, limitations and personnel involved. These included but were not limited to infection, persistent pain, instability, nerve injury, blood clots, and medical complications. We also discussed the pre-operative course, surgery itself and rehabilitation. Emilee-operative blood management and transfusion issues were discussed, and options clearly outlined. The patient has consented to the use of the banked allogenic blood if medically necessary. The patient has elected to schedule surgery at this time or intends to call the office with a surgical date. Shared decision making occurred while obtaining informed consent. The patient will be scheduled for a pre-operative education class at which time they will have their nasal swab completed and will be given CHG cloths along with the verbal and written instructions for their use. The patient has been ordered: Office Visit on 06/14/23 CRUTCHES TOTAL JOINT REPLACEMENT P (more content not included)...[facility] 06-14-2023 Instructions* Patient Instructions* Heather Diego PA-C - 06/14/2023 9:11 AM EDT Instructions for Blood Management Decreasing the need for blood transfusions after surgery can help your body heal faster and help your body fight infection better. Blood Management will check your blood and iron levels to see if youwould benefit from having treatment to help increase your blood counts before your surgery. What do you need to do? 1. Go and have your labs (CBC, Ferritin, Iron Studies) drawn today or within the next three days atthe nearest [facility] lab. If you would like, you can go today, following your appointment, to any of our outpatient labs. 2. If it is determined that you would benefit from treatment, someone from the Blood Management Department will call you. If we call you, we will then give further instructions for iron replacement. If you do not hear from Blood Management, your lab results were okay and you do not need additional iron replacement. Questions? Contact us: If you are having surgery at [facility] or If you are having surgery at [place], [place], [place] , [place], [place], [place], [facility], or [place] documented in this encounterBarney Children'S [facility]03-12-2024 History of Present illness Narrative* Holland Mo MD - 06/14/2023 8:45 AM EDT CONSULT ORTHOPAEDIC: HIP PRIMARY CARE PHYSICIAN: Vesta Stallworth MD REFERRING PROVIDER: Zoran Mathews MD [address] [facility] [address] [facility] [address] ASSESSMENT & PLAN Impression: Right Hip Moderate Degenerative Osteoarthritis, Post-Traumatic and Labral Tear Referred by Dr. Zoran Mathews for right hip pain in the setting of multiple previous right hip scope arthroplasty Patient last saw Dr. Mathews on June 10, 2023 for continued right hip pain. He was referred to our office to discuss a hip resurfacing. In the meantime, he was also ordered a right hip CSI. Some left hip pain but mostly right hip Pain location: Groin, lateral hip pain Activities creating pain: Walking, going down stairs/incline, sleeping, going from sitting to standing Therapy to date - Ice or Heat: Ice OTC/Rx Medications (Topical/PO): Ibuprofen, Creatinine is stable and WNL per last value on 11/10/2022 Brace/Splint: none Assist Device: not at this time Physical Therapy: Just finished PT in April, continues with stretching and daily HEP Injections: Cortisone in between scope procedures and was not super beneficial Surgery: 09/17/2021 -right hip scope with labral repair, acetabuloplasty, chondroplasty, synovectomy, microfracture, extensive femoroplasty, and capsular closure 12/23/2022-right hip scope revision with labral repair, chondroplasty, synovectomy, extensive lysis of adhesions, revision femoroplasty, capsular closure Recent BMI: 27.27 PMHx: - Diabetes, Type 2 - well controlled. Last A1c was 5.9 on 11/10/2022 - HTN - Anxiety/Depression Home Situation: Lives with and daughter Smoking Status: Patient is a former smoker, quit in 2008 Occupation: [employer] for [employer], mostly sedentary Hobbies: wants to get back to golf, hiking Imaging: He will need direct lateral hip films and plain hip films with mag markers. Outside imagesreviewed today below. Diagnoses: (M16.11) Primary osteoarthritis of right hip (primary encounter diagnosis) (S73.191D) Tear of right acetabular labrum, subsequent encounter (D64.9) Anemia, unspecified type Based upon the evaluation today and after discussions with Gala Yun, Gala Yun has significant, worsening pain at the hip. This pain is increased with activity and weight bearing, and interferes with activities of daily living. These symptoms have continued despite a number of non-surgical measures, including a trial of oral pain medication (for at least 12 weeks). At this point, the patient will not benefit from further PT due to the severity of their condition. The patient's physical examination is consistent with limitations in range of motion, pain with passive range of motion,and an antalgic gait. These examination findings are corroborated by imaging findings of joint space narrowing, periarticular osteophyte formation, and subchondral sclerosis. The patient has been treated by the practice and all reasonable treatments have failed to control the disease, which causes significant pain and limits activities of daily living. The patient has failed conservative treatment and joint replacement surgery was discussed and agreed upon by both provider and patient. The patient has elected to proceed with surgical management to improve function and relieve pain refractory to non-surgical measures: right [place] hip resurfacing as evidenced by proximal femoral bone geometry and bone quality are sufficient for hip resurfacing, and the patient would otherwise recieve a conventional primary total hip replacement and progressive symptoms. Progressive symptoms include: Pain impacting sleep or causing fatigue Pain worsened by weight bearing Pain limiting ability to stay fit and healthy. We had a lengthy discussion regarding the risk and benefit of surgery, the alternatives, limitations and personnel involved. These included but were not limited to infection, persistent pain, instability, nerve injury, blood clots, and medical complications. We also discussed the pre-operative course, surgery itself and rehabilitation. Emilee-operative blood management and transfusion issues were discussed, and options clearly outlined. The patient has consented to the use of the banked allogenic blood if medically necessary. The patient has elected to schedule surgery at this time or intends to call the office with a surgical date. Shared decision making occurred while obtaining informed consent. The patient will be scheduled for a pre-operative education class at which time they will have their nasal swab completed and will be given CHG cloths along with the verbal and written instructions for their use. The patient has been ordered: Office Visit on 06/14/23 CRUTCHES TOTAL JOINT REPLACEMENT PRE-SURGERY EDUCATION CLASS XR HIP GENERAL 3V PELV/AP/LAT RIGHT XR HIP 2V AP/LAT RIGHT (AK,FL,ME,UN) ALBUMIN BLD CBC + DIFF IRON + TIBC FERRITIN BLD HGB A1C BASIC METABOLIC PNL STAPH AUREUS PCR BLOOD MANAGEMENT REFERRAL PATIENT PLACED ON AYSE SILVER CARE PATH Nasal Swab Culture Anemia Screen Albumin Level A/P: The patient has expressed interest in a hip resurfacing arthroplasty and would like to proceedwith such. Please see a summary, as below: - Reviewed the rationale/risks/benefits of proceeding with a [place] Hip Resurfacing (BHR) or hip resurfacing arthroplasty (HRA). We have gone over postoperative pictures of a total hip arthroplasty (SILVER) and a HRA. The patient understands that he will be on crutches for 6 weeks postoperatively,to allow for abductor healing, 50% weightbearing. Discussed the perioperative recovery period, including the need for physical therapy, and the need to push through some discomfort postoperatively. We discussed the pain control measures that we use postoperatively, and highlighted measures that we take to decrease infection risk, as well as blood clots. Re-iterated rationale for HRA, including low failure rates in large, multi- national registries for young males with osteoarthritis. Compared to that of SILVER, and showed models + films of both options.Discussed risk of yndpz-wo-whlpe bearing and metal ion loads or metallosis/pseudotumors, but again re-iterated low failure rates without similar trends shown with HRA (as compared to other resurfacing options in the past) due to differences in cup geometry, metallurgy, and implantation technique. The advantages include minimal concerns for LLD, instability, and no post-op limitations after 1 year(1 year post-op we will prevent the patient from hihg impact activity such as competitive basketball, jumping, downhill skiing, rock climbing, etc) - 1 year limitation given to allow for femoral neckremodeling. Discussed the unique risk of femoral neck fracture with HRA, though low risk if precautions followed. We also discussed the literature defended lower risk of infection with HRA, as compared to SILVER, but we still will treat prophylactically down the road with antibiotics prior to dental procedures, colonoscopies, etc. - A consent was signed in clinic today. We did discuss the continued to plan for a total hip arthroplasty, if the anatomy or bone quality was not felt to be adequate for a BHR. - Surgical packet (with BHR information/CD/websites) was given. CHG wipes given. - Sent for pre-operative labs - Nasal swab performed (unless otherwise indicated to to pre-emptive treatment planned with nasal ointment & Vancomycin) - We will proceed with surgery at [facility]. - A surgical date has been picked: November or October 2023 - patient choice. He will MyChart us to let us know. - Plan to use S&N BHR (Microplasty + G7 on backup) implants - Specialty Instruments/Implants Available or on backup - None - ASA 81mg BID + SCDs for post-operative DVT ppx x 4wks - TXA - Plan for IV route pre-operatively - Post-op consults needed - None - Baclofen will be Rx'd post-op for muscle spasms (10mg TID prn spasms, 1mo supply) - Celebrex 200mg QDay post-op for pain control and HO ppx, x8 weeks (#30 with 1 RF). - We will verify that the patient has updated hip films (with magnification markers) prior to surgery, including a direct sitting/standing lateral pelvis view (in order to measure pelvic tilt, sacralslope). - Discussed importance of a Home Exercise Program for Core strengthening, quad strengthening, IT Band stretching prior to surgery, to help improve pre- operative fitness - He has a CT scan on 06/21/23 of his heart and has followed up with Dr. Rincon. He has a family history of CAD. He went into AFib on induction for his 2nd hip scope -- no longer in AFib. Stress testwas negative for ischemia and he had normal LVEF. I will reach out after the CT scan of the heart is completed. CONSULTS: PACC for preoperative clearance. I spent a total of 30 minutes on the date of the service which included [id number] patient care, completing clinical documentation, obtaining and/or reviewing separately obtained history, performing a medically appropriate examination, counseling and educating the patient/family/caregiver, ordering medications, tests, or procedures, independently interpreting results (not separately reported), and communicating results to the patient/family/caregiver. The counseled portion is detailed in the plan, as above, that I have personally verified and edited as appropriate. Any information added by medical student, resident, nurse, STEAM BOILER FIREMAN/STACY that I have placed my signature directly below I have verified and either instructed them to document in a scribe function or document appropriately in the chart during the patient visit. This is my 1st established care visit with Gala. We have made the decision to move forward with a major orthopaedic surgery today, and this represents the highest form of medical decision making complexity. Total Joint Arthroplasty: Risk Calculator Gala Yun has a 3.63% chance of NOT returning home at discharge for a Primary total Hip replacement. Gala's estimated Length of Stay is 1 day (Outpatient candidate). Gala's 30 day chance of readmission is 0.64%. Readmission Probability 0.64 % (within 30 days following surgery) Estimated LOS 1 day Discharge Disposition Probability D/C to Home 96.37 % D/C to SNF 3.63 % These calculations are based on the following factors: - 43 years of age - sex is male - BMI of 27.27 kg/m2 - NarxCare score of 320 - 0 hospitalizations in the last 12 months - no history of heart disease - history of diabetes - no history of COPD - no history of anemia - preoperative ambulation: independent community distances - 1 step(s) to enter home - bed location is on the first floor - bath location is on the first floor - caregiver is consistent - home is not more than 150 miles away - PROMIS-10 Mental Health T score 41-49 - Marital status: Risk Factors for Total Knee Arthroplasty (TKA) Major Risk Factors Obesity Unknown Risk High: BMI > 40 Moderate: BMI 30-40 Normal: BMI < 30 Diabetes Moderate Risk High: A1C > 8 Moderate: A1C 7-8 Normal: A1C < 7 Hx of DVT / PE normal High: dx of DVT / PE Normal: no dx of DVT / PE Smoking normal High: Current smoker Normal: Non smoker Narcotics Use High Risk High:NarxCare >=300 Moderate: 100-299 Normal: 0-99 Depression Unknown Risk High: PHQ-9 >14 Moderate: PHQ-9 5-14 Normal: PHQ-9 < 5 Area Deprivation Index (FOX) normal High: FOX Score > 75 Moderate: FOX 50-75 Normal: FOX < 50 Obesity: height and/or weight are out of date (There is no height and/or weight reading in the [id number] days, so the below BMI readings may be inaccurate) BMI Readings from Last 3 Encounters: 06/14/23 : 27.27 kg/m 05/18/23 : 27.47 kg/m 01/26/23 : 27.27 kg/m Diabetes: Well controlled - Gala has been diagnosed with Type 2 Diabetes. His last Hemoglobin A1C was 5.9 (11/10/2022). Pt is followed by Vesta Stallworth for Type 2 Diabetes - last seen on 05/18/2023. Area Deprivation Index (FOX) 09/22/2021 11/12/2022 FOX Score National Score 34 41 Patient Health Questionnaire (PHQ-9) 01/16/2019 02/05/2021 03/11/2022 PHQ-9 PHQ-2 Score 4 2 2 PHQ-9 Score 17 13 13 (0-4) minimal depression, (5-9) mild depression, (10-14) moderate depression, (15-19) moderately severe depression, (20-27) severe depression Bone Density Risk Screen Gala Yun is low risk for bone loss based on his age and having no previous diagnoses of osteopenia, osteoporosis, Paget's disease of bone, or cancer of bone. Other risk factors are listed below to determine if they pose a significant risk for bone loss, andif so, recommend ordering a bone densitometry and, upon receiving a result, as needed, order a consult to a bone health specialist (Rheumatology, Endocrinology, or Women's Health) for bone assessment. Risk Factors: History of falls Hx of Renal Calculi Prednisone or use of systemic steroids Chronic Malnutrition Additional Risk Factors NarxCare score NARX Narcotics: 320 (06/14/2023 8:46 AM) Recommend a consult to Chronic Pain Management. ACTIVE PROBLEM LIST Panic Social Phobia Fh: Hemochromatosis Dysthymia Recurrent Major Depressive Disorder, in Partial Remission (Hcc) Adhd (Attention Deficit Hyperactivity Disorder), Inattentive Type Body Dysmorphic Disorder Type 2 Diabetes Mellitus Without Complication, Without Long-Term Current Use of Insulin (Hcc) Hypertension, Essential Night Sweats Vitamin D Deficiency Hypertriglyceridemia SUBJECTIVE CHIEF COMPLAINT: Hip Pain HPI: Gala Yun is a 43 year old patient with the presenting complaint of New of the Right Hip. Gala Yun has had progressive problems with the hip(s) constantly over the past 6+ month(s). The problem began limiting activities 1-6 months ago. Gala reports a current pain level of 5 (Hip-Right). He describes the pain as Aching, Shooting, Throbbing. The pain is Continuous . surgical intervention x2. FALL RISK: Gala is not currently at risk for falls. FUNCTIONAL STATUS: Walk a block or two on level ground (2.75 METs) REVIEW OF SYSTEMS: PAIN ASSESSMENT: See HPI. MUSCULOSKELETAL: See HPI. PAST MEDICAL HISTORY Diagnosis Date Atypical chest pain 07/17/2015 Diabetes (HCC) Elevated bilirubin ?chronic versus intermittent mild elevation sicne childhood--benign condition Hyperlipidemia Kidney stone on left side had to have blasted and stented (treated Dr. Mittal) Vitamin D deficiency PAST SURGICAL HISTORY Procedure Laterality Date EXTENSIVE HIP SURGERY Right 09/17/2021 PAST SURGICAL HISTORY OF 04/04/2009 kidney stone, blasted, stent placed PAST SURGICAL HISTORY OF 04/19/2013 Left elbow lateral epicondylar release, Dr. Damon PAST SURGICAL HISTORY OF Right Athroscopy FAMILY HISTORY Problem Relation Age of Onset Coronary Artery Disease Father CABG at age 58 None Mother None Sister None Brother Ischemic Heart Disease Paternal Grandmother Stroke Paternal Grandmother Stroke Maternal Grandmother other (leukemia [Other]) Paternal Grandfather Social History Tobacco Use Smoking status: Former Smokeless tobacco: Never Vaping Use Vaping Use: Never used Substance Use Topics Alcohol use: Yes Alcohol/week: 2.0 - 3.0 standard drinks of alcohol Types: 2 - 3 Glasses of Wine (5oz) per week Comment: 3-4 times a week Drug use: Yes Frequency: 3.0 times per week Types: Marijuana Comment: Several times per week ALLERGIES: Prednisone MEDICATIONS: iv contrast (will be provided with radiology test)^CTA Coronary. No IV access, insert saline lock prior to the sedation, infusion, injection for imaging exam. Discontinue saline lock post exam. If Pt. has a central line or IVAD, may access for administration according to line specific nursing protocol. Once exam is complete flush line and de-access according to line specific nursing protocol in the CT contrast administration guidelines link.^Disp: 1 Each^Rfl: 0 metoprolol tartrate, short acting, (LOPRESSOR) 50 mg tablet^Take one 50 mg tablet the evening priorto the CTA examination, take another 50 mg tablet the morning of the CTA examination.^Disp: 2 tablet^Rfl: 0 nitroglycerin sublingual (NITROQUICK) 0.3 mg SL tablet^Dissolve 1 tablet under the tongue one time only for 1 dose. To be administered in Radiology for CTA exam^Disp: 1 tablet^Rfl: 0 aspirin, enteric coated (ASPIRIN, ENTERIC COATED) 81 mg EC tablet^Take 1 tablet by mouth once daily.^Disp: ^Rfl: ALPRAZolam (XANAX) 1 mg tablet^Take 1 tablet by mouth once daily as needed for anxiety for up to 30days. Do not start before June 02, 2023.^Disp: 30 tablet^Rfl: 0 metFORMIN ER (GLUCOPHAGE XR) 500 mg 24 hr tablet^Take 4 tablets by mouth daily with breakfast.^Disp: 360 tablet^Rfl: 3 lisinopril (ZESTRIL) 10 mg tablet^Take 1 tablet by mouth once daily.^Disp: 90 tablet^Rfl: 3 baclofen 10 mg tablet^take 1 tablet by mouth every 8 hours if needed for muscle spasm^Disp: ^Rfl: alfuzosin SR (UROXATRAL) 10 mg 24 hr tablet^Take 1 tablet by mouth daily at bedtime.^Disp: 90 tablet^Rfl: 3 atorvastatin (LIPITOR) 20 mg tablet^Take 1 tablet by mouth once daily.^Disp: 90 tablet^Rfl: 3 Cholecalciferol, Vitamin D3, (VITAMIN D-3) 2,000 unit cap^Take 1 capsule by mouth once daily.^Disp:^Rfl: blood sugar diagnostic (BLOOD GLUCOSE TEST) test strip^Test blood sugar(s) 1 times daily and as needed. Dx: Type 2 DM - Uncontrolled E11.9 Insulin: No^Disp: 100 Strip^Rfl: 3 Lancets lancets^Test blood sugar(s) 1 times daily. Dx: Type 2 DM - Uncontrolled E11.65 Insulin: No^Disp: 100 Each^Rfl: 11 OBJECTIVE PHYSICAL EXAM BP 136/80 (BP Site: Left Arm, BP Position: Sitting, BP Cuff Size: Regular Adult) Pulse 69 Temp 36.4 C (97.5 F) Ht 198.1 cm (6' 6) Wt 107 kg (236 lb) SpO2 99% BMI 27.27 kg/m All other systems deferred. GENERAL: Appears healthy, well-nourished, no deformities. HABITUS: Normal GAIT: Antalgic, no assist device HIP EXAM: Right: Limb lengths clinically equal 2 well-healed arthroscopic incisions. ROM: Extension: Normal Flexion: 100 degrees, recreates groin pain with deep flexion Internal Rotation: 10 degrees External Rotation: 30 degrees Abduction: 40 degrees Strength: Abduction 5/5 and Flexion 5/5 Palpation: Slight TTP of GT. No ITBand tenderness. Straight leg raise: Negative. +Stinchfield. Neurovascular Status: Sensation Intact and Moves foot and ankle up & down. DP pulses 2+. DATA: Diagnostic tests reviewed for today's visit: 05/03/2023 right hip x-rays from outside are reviewed today. Evidence of moderate degenerative changes of the right hip. Mild loss of superior joint space. Status post right hip STEVE correction. 05/23/2023 right hip MRI is reviewed today. Mild interval progression of partial-thickness tear andfraying of the anterior labrum along the margin from 1:00 to 2:00. Redemonstration of partial-thickness undersurface tear of the posterior superior labrum from 11:00 to 12:00 at the chondral labral junction. Surgical changes of prior labral repair and right femoral cheilectomy. Mild right hip osteoarthritis. Mild right gluteus minimus and medius insertional tendinosis without a high-grade tear. Mild right hamstring origin tendinosis without high-grade tear. SIGNATURE: Holland Mo MD PATIENT NAME: Gala Yun DATE: June 14, 2023 TIME: 8:27 AM documented in this encounterBarney [facility]03-[facility]24 Miscellaneous Notes* Telephone Encounter - Jasmina Rincon MD - 06/06/2023 4:44 PM EST Discussed stress test results with the patient. He does not have symptoms with exertion concerning for ischemic heart disease. He has family history of early coronary artery disease. Will order CTA coronaries for further evaluation. Jasmina Rincon MD MPH [facility] Staff [employer] Clinical [employer] Admin [facility] Heart, Vascular, and Thoracic [place] [facility] documented in this encounterBarney Children'S [facility] Center02-14-2024 History of Present illness Narrative* Vesta Stallworth MD - 05/18/2023 9:02 AM EST This note was created using Yonesriter. Subjective Gala Yun is a 43 year old male. Patient presents with: 6 month f/up SUBJECTIVE: Glaa Yun is a 43 year old year old gentleman here today for 6 month follow up appointment forreview of medical conditions. Overall okay. Ongoing neck issues. Power walking now. Getting back in shape. PAST MEDICAL HISTORY Diagnosis Date Atypical chest pain 07/17/2015 Diabetes (HCC) Elevated bilirubin ?chronic versus intermittent mild elevation sicne childhood--benign condition Hyperlipidemia Kidney stone on left side had to have blasted and stented (treated Dr. Mittal) Vitamin D deficiency Current Outpatient Medications Medication Sig ALPRAZolam (XANAX) 1 mg tablet Take 1 tablet by mouth once daily as needed for anxiety for up to 60days. metFORMIN ER (GLUCOPHAGE XR) 500 mg 24 hr tablet Take 4 tablets by mouth daily with breakfast. lisinopril (ZESTRIL) 10 mg tablet Take 1 tablet by mouth once daily. aspirin 325 mg tablet Take 325 mg by mouth once daily. Taking 81 mg daily alfuzosin SR (UROXATRAL) 10 mg 24 hr tablet Take 1 tablet by mouth daily at bedtime. atorvastatin (LIPITOR) 20 mg tablet Take 1 tablet by mouth once daily. Cholecalciferol, Vitamin D3, (VITAMIN D-3) 2,000 unit cap Take 1 capsule by mouth once daily. blood sugar diagnostic (BLOOD GLUCOSE TEST) test strip Test blood sugar(s) 1 times daily and as needed. Dx: Type 2 DM - Uncontrolled E11.9 Insulin: No Lancets lancets Test blood sugar(s) 1 times daily. Dx: Type 2 DM - Uncontrolled E11.65 Insulin: No oxyCODONE-acetaminophen (PERCOCET) 5-325 mg tablet Take 1 tablet by mouth every 6 hours as needed. ondansetron (ZOFRAN) 4 mg tablet Take 1 tablet by mouth every 8 hours as needed. baclofen 10 mg tablet take 1 tablet by mouth every 8 hours if needed for muscle spasm naproxen (NAPROSYN) 500 mg tablet Take 1 tablet by mouth every afternoon. (Patient not taking: Reported on 05/18/2023) Current Facility-Administered Medications Medication Dose Route Frequency perflutren lipid microspheres 1.3 mL in NaCl (PF) 0.9% 10 mL injection (DEFINITY) INTRAVENOUS DIRECTED PRN sodium chloride 0.9 % (flush) 10 mL (BD POSIFLUSH) 10 mL INTRAVENOUS DIRECTED PRN Review of Systems Objective BP 120/60 (BP Site: Left Arm, BP Position: Sitting, BP Cuff Size: Large Adult) Pulse 60 Resp 14 Wt 107.8 kg (237 lb 11.2 oz) BMI 27.47 kg/m Last 5 Encounter Wt Readings: Date: Wt: 05/18/2023 107.8 kg (237 lb 11.2 oz) 01/26/2023 107 kg (236 lb) 01/10/2023 107 kg (236 lb) 12/31/2022 106.1 kg (234 lb) 11/12/2022 106.6 kg (235 lb) No waist measurement recorded Estimated body mass index is 27.47 kg/m as calculated from the following: Height as of 12/29/21: 198.1 cm (6' 6). Weight as of this encounter: 107.8 kg (237 lb 11.2 oz). Last 5 Encounter BP Readings: Date: BP: 05/18/2023 120/60 01/26/2023 128/88 01/10/2023 126/82 01/10/2023 122/81 12/31/2022 134/82 Physical Exam Vitals reviewed. Constitutional: Appearance: Normal appearance. Eyes: Conjunctiva/sclera: Conjunctivae normal. Cardiovascular: Rate and Rhythm: Normal rate and regular rhythm. Heart sounds: Normal heart sounds. Pulmonary: Effort: Pulmonary effort is normal. Breath sounds: Normal breath sounds. Musculoskeletal: Right lower leg: No edema. Left lower leg: No edema. Skin: General: Skin is warm and dry. Neurological: General: No focal deficit present. Mental Status: He is alert and oriented to person, place, and time. Psychiatric: Attention and Perception: Attention and perception normal. Mood and Affect: Mood normal. Speech: Speech normal. Behavior: Behavior normal. Thought Content: Thought content normal. Cognition and Memory: Cognition normal. Judgment: Judgment normal. Hemoglobin A1C Date Value 11/10/2022 5.9 % 02/04/2022 6.1 % 08/14/2021 7.0 07/02/2020 6.1 % 07/01/2018 5.2 % Hemoglobin A1C (POCT) (%) Date Value 03/07/2018 7.5 Assessment and Plan Encounter Diagnosis ICD-10-CM 1. Type 2 diabetes mellitus without complication, without long-term current use of insulin (HCC) E11.9 COMP METABOLIC PANEL HGB A1C ALBUMIN/CREAT RATIO RND UR Last HgA1C showed well controlled. Continue present management 2. Hypertension, essential I10 COMP METABOLIC PANEL CBC Well controlled. Continue present management 3. Panic F41.0 ALPRAZolam (XANAX) 1 mg tablet Some increased anxiety so needing to take Xanax more often than usual. Okayed RX 4. Vitamin D deficiency E55.9 VITAMIN D 25 HYDROXY Last level fine. Continue to monitor labs and adjust supplement as needed 5. Hypertriglyceridemia E78.1 LIPID PANEL BASIC Follow up on lipids and adjust diet, exercise and med management as indicated Above issues addressed with patient. Patient involved in shared decision making for management of medical issues. History and medications reviewed. Epic updated as needed Refills and/or prescriptions taken care of and meds adjusted as indicated after reviewed history, exam and labs. Health Maintenance reviewed. Updated record and/or ordered tests as recorded. Encouraged on efforts at healthy diet and regular exercise and adequate sleep. Vesta Stallworth MD documented in this encounterBarney [facility]11-22-2023 Miscellaneous Notes* Telephone Encounter - Thelma John LPN - 02/23/2023 12:44 PM EST Patient aware. Thelma John LPN * Telephone Encounter - Vesta Stallworth MD - 02/23/2023 11:54 AM EST The following approved medication requests have been transmitted electronically. Requested Prescriptions Signed Prescriptions Disp Refills lisinopril (ZESTRIL) 10 mg tablet 90 tablet 3 Sig: Take 1 tablet by mouth once daily. Authorizing Provider: VESTA STALLWORTH MD Below noted. * Telephone Encounter - Chelsea Vásquez - 02/23/2023 8:31 AM EST Patient calling today in regard to medication lisinopril. Patient is out of medication and is asking to have it refilled. Please send refill to [facility].. * Telephone Encounter - Belén Phillips LPN - 02/18/2023 1:52 PM EST Please review request. In review 12/31/22 when removed from list says not taking. * Telephone Encounter - Danica Hayden - 02/18/2023 1:27 PM EST Patient tried to refill his lisinopril, but it is discontinued. He explained that it was only supposed to be discontinued temporarily. He was temporarily switched to a different BP medication when he had a surgery. Wants to know if a new rx can be called into [facility] in [place]. Please confirm with him at [phone] when resolved. documented in this encounterBarney Children'S [facility] Center11-20-2023 Miscellaneous Notes* Telephone Encounter - Vesta Stallworth MD - 02/21/2023 10:42 PM EST The following approved medication requests have been transmitted electronically. Requested Prescriptions Signed Prescriptions Disp Refills ALPRAZolam (XANAX) 1 mg tablet 30 tablet 0 Sig: Take 1 tablet by mouth once daily as needed for anxiety for up to 60 days. Authorizing Provider: VESTA STALLWORTH MD * Telephone Encounter - Samara Wang OCCA - 02/21/2023 9:16 AM EST Patient has been identified by name and date of : Yes Patient phones for refill(s): Requested Prescriptions Pending Prescriptions Disp Refills ALPRAZolam (XANAX) 1 mg tablet 30 tablet 0 Sig: Take 1 tablet by mouth once daily as needed for anxiety for up to 60 days. Date of last office visit in primary care: 01/10/2023 Date of next office visit in primary care: 05/18/23 Last 2 Encounter Wt Readings: Date: Wt: 01/26/2023 107 kg (236 lb) 01/10/2023 107 kg (236 lb) Please advise. Thank you. XENIA Alvarado. documented in this encounterBarney Children'S Medical Center10-27-2023 Miscellaneous Notes* Telephone Encounter - Tiara Ball APRN.CNS - 01/28/2023 4:00 PM EDT Response sent to patient. Routed chart to Nile for review. * Telephone Encounter - Thelma John LPN - 01/26/2023 8:49 AM EDT Please advise. Should patient follow up with Nile Plata PA-C due to labs ordered by Provider? Thelma John LPN documented in this encounterBarney Children'S Medical Center10-25-2023 History of Present illness Narrative* Jasmina Rincon MD - 01/26/2023 9:37 AM EDT Images from the original note were not included. Heart and Vascular [place] [facility] Department of Cardiovascular Medicine SECTION OF [facility] CARDIOLOGY/[facility] OUTPATIENT VISIT DATE January 26, 2023 OUTPATIENT VISIT TYPE NEW PATIENT Name: Gala Yun : 1980 Date: January 26, 2023 PRIMARY CARE PHYSICIAN: Vesta Stallworth [address] [id number] REFERRING PHYSICIAN: Tiara Ball [address] [facility] [id number] CHIEF COMPLAINT: Patient presents with: Consult IMPRESSION / PLAN: Atrial fibrillation, [id number] score of 2 (hypertension, diabetes) Patient had 1 episode of atrial fibrillation noted on telemetry after a prostatic procedure. Rhythmstrips not available and atrial fibrillation was not captured on ECG because resolved shortly aftersurgery. Patient has been doing well since his surgery. He is in sinus rhythm today. We will check TSH We will obtain echocardiography and event monitor to screen for atrial fibrillation. We will hold starting anticoagulation since atrial fibrillation could have been provoked by surgerywith no recurrence. Counseled the patient to monitor his heart rate at home. Follow Up Instructions Return if symptoms worsen or fail to improve. ORDERS FOR TODAY'S VISIT: Office Visit on 01/26/23 TSH BLD CONSULT TO CARDIOLOGY OUTSIDE VENDOR CARDIAC OUTPATIENT EXTENDED RHYTHM RECORDING (WITHOUT TELEMETRY) perflutren lipid microspheres 1.3 mL in NaCl (PF) 0.9% 10 mL injection (DEFINITY) sodium chloride 0.9 % (flush) 10 mL (BD POSIFLUSH) ECG COMPLETE ECG COMPLETE ECHO HISTORY OF PRESENT ILLNESS: Gala Yun is an 42 year old male with history of type 2 diabetes mellitus with A1c of 5.9, hypertension, hyperlipidemia presented today to [facility]. Patient had prostatic procedure done recently in an outside hospital and reportedly atrial fibrillation was noted on telemetry after surgery. They could not capture at with ECG as per patient becauseit resolved. No previous history of atrial fibrillation. Patient has been doing well since his procedure. He denies chest pain, shortness of breath, palpitations, dizziness, syncope, or swelling lower extremities. No previous history of coronary artery disease, cardiomyopathy, arrhythmias, or valve disease. Patient is non-smoker, drinks socially, and denies any recreational drugs use. 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 Mittal) Vitamin D deficiency PAST SURGICAL HISTORY Procedure Laterality Date EXTENSIVE HIP SURGERY Right 09/17/2021 PAST SURGICAL HISTORY OF 04/04/2009 kidney stone, blasted, stent placed PAST SURGICAL HISTORY OF 04/19/2013 Left elbow lateral epicondylar release, Dr. Damon PAST SURGICAL HISTORY OF Right Athroscopy SOCIAL HISTORY Social History Tobacco Use Smoking status: Former Smokeless tobacco: Never Vaping Use Vaping Use: Never used Substance Use Topics Alcohol use: Yes Alcohol/week: 5.0 - 7.5 standard drinks of alcohol Types: 2 - 3 Glasses of Wine (5oz) per week Comment: 3-4 times a week Drug use: Yes Frequency: 3.0 times per week Types: Marijuana Comment: Several times per week FAMILY HISTORY Problem Relation Age of Onset Coronary Artery Disease Father CABG at age 58 None Mother None Sister None Brother Ischemic Heart Disease Paternal Grandmother Stroke Paternal Grandmother Stroke Maternal Grandmother other (leukemia [Other]) Paternal Grandfather ALLERGIES: ALLERGIES Allergen Reactions Prednisone Intolerance Did not tolerate and would not take again--not sure the exact adverse effect. Can take other steroids MEDICATIONS: oxyCODONE-acetaminophen (PERCOCET) 5-325 mg tablet^Take 1 tablet by mouth every 6 hours as needed.^Disp: ^Rfl: ondansetron (ZOFRAN) 4 mg tablet^Take 1 tablet by mouth every 8 hours as needed.^Disp: ^Rfl: aspirin 325 mg tablet^Take 325 mg by mouth once daily.^Disp: ^Rfl: baclofen 10 mg tablet^take 1 tablet by mouth every 8 hours if needed for muscle spasm^Disp: ^Rfl: losartan (COZAAR) 25 mg tablet^Take 0.5 tablets by mouth every afternoon.^Disp: ^Rfl: naproxen (NAPROSYN) 500 mg tablet^Take 1 tablet by mouth every afternoon.^Disp: ^Rfl: alfuzosin SR (UROXATRAL) 10 mg 24 hr tablet^Take 1 tablet by mouth daily at bedtime.^Disp: 90 tablet^Rfl: 3 ALPRAZolam (XANAX) 1 mg tablet^Take 1 tablet by mouth once daily as needed for anxiety for up to 60days. Do not start before November 19, 2022.^Disp: 30 tablet^Rfl: 0 atorvastatin (LIPITOR) 20 mg tablet^Take 1 tablet by mouth once daily.^Disp: 90 tablet^Rfl: 3 metFORMIN ER (GLUCOPHAGE XR) 500 mg 24 hr tablet^Take 4 tablets by mouth daily with breakfast.^Disp: 360 tablet^Rfl: 3 Cholecalciferol, Vitamin D3, (VITAMIN D-3) 2,000 unit cap^Take 1 capsule by mouth once daily.^Disp:^Rfl: blood sugar diagnostic (BLOOD GLUCOSE TEST) test strip^Test blood sugar(s) 1 times daily and as needed. Dx: Type 2 DM - Uncontrolled E11.9 Insulin: No^Disp: 100 Strip^Rfl: 3 Lancets lancets^Test blood sugar(s) 1 times daily. Dx: Type 2 DM - Uncontrolled E11.65 Insulin: No^Disp: 100 Each^Rfl: 11 REVIEW OF SYSTEMS: All other review of systems, per history of present illness. PHYSICAL EXAMINATION: BP 128/88 Pulse 82 Wt 107 kg (236 lb) BMI 27.27 kg/m Last 2 Encounter Wt Readings: Date: Wt: 01/26/2023 107 kg (236 lb) 01/10/2023 107 kg (236 lb) General: Well appearing, in no acute distress. Skin: No clubbing, no cyanosis. Eyes: Extra ocular movements intact Oropharynx: No gross abnormalities Neck: No jugular venous distention, no carotid bruits. Lungs: Clear to auscultation bilaterally, no wheezing or rhonchi. Heart: Regular rhythm, PMI not displaced, S1, S2, no S3, no S4, no murmur. Abdomen: Soft, nontender, bowel sounds normal, no palpable organomegaly, no bruits. Extremities: No peripheral edema . +2 distal pulses bilaterally. Neuro: Oriented to person, place and time, alert, cooperative. CARDIOVASCULAR MEDICINE TESTING: ECG: Normal sinus rhythm, normal ECG Stress treadmill echocardiography 2019: CONCLUSIONS: - Technically difficult exam due to body habitus. - Exam indication: Abnormal ECG - The exercise stress echo was negative for ischemia at 96 % of MPHR (14.2 METS). - The left ventricle is normal in size. Left ventricular systolic function is normal. EF = 57 5% (2D biplane) Definity contrast used for endocardial border detection. Normal left ventricular diastolic function. - The right ventricle is normal in size. Right ventricular systolic function is normal. I have personally reviewed the ECG and the imaging studies. Jasmina Rincon MD MPH Staff [employer] [facility] of Cardiovascular Medicine Heart, Vascular and Thoracic [place] documented in this encounterBarney Children'S Medical Center09-20-2023 Miscellaneous Notes* Telephone Encounter - Belén Phillips LPN - 12/22/2022 1:38 PM EDT All faxed again this this number provided. * Telephone Encounter - Abby Martínez RN - 12/22/2022 1:19 PM EDT Alem @ [facility] calling to say the forms were sent to the wrong fax number. The correct fax # is [phone]. She is asking for them to be re-faxed. Abby Martínez RN * Telephone Encounter - Belén Phillips LPN - 12/22/2022 12:33 PM EDT Pcp signed clearance form. This has been faxed back along with office note. * Telephone Encounter - Belén Phillips LPN - 12/22/2022 11:35 AM EDT Office note was faxed 12/15/22 to the number on the form. Which is [phone]. There was no clearance form rec'd until today. To pcp to review and we can fax all again. * Telephone Encounter - Ani Stevens RN - 12/22/2022 8:21 AM EDT Patient calls to report that he had a pre-op exam on 11/12/[address] Harp's office didn't receive pre-op forms for surgery scheduled tomorrow. Forms were not faxed to the correct office. Fax number given to Dr. Stallworth's office. Patient to have Dr. Harp's office refax forms. Ani Stevens RN documented in this encounterBarney Children'S Medical Center08-11-2023 History of Present illness Narrative* Vesta Stallworth MD - 11/12/2022 10:39 AM EDT This note was created using Yonesriter. Subjective Gala Yun is a 42 year old male. HISTORY Gala Yun is a 42 year old gentleman here for pre-op evaluation as requested by patient for surgery by Dr. Zoran Mathews. Gala Yun has surgery scheduled on 12/23/22 for Right hip labral tear repair at [facility] surgery center. Noted that surgery is scheduled for more than 30 days from today's date. Can do update within 30 days if needed by [facility] orthopedist. Noted has numbness in toes due to neuropathy. Comes and goes. Not severe and not progressing. Has had no problems with anesthesia with prior surgeries. No acute concerns to address. No signs of cardiac or pulmonary issues. PAST MEDICAL HISTORY Diagnosis Date Atypical chest pain 07/17/2015 Diabetes (HCC) Elevated bilirubin ?chronic versus intermittent mild elevation sicne childhood--benign condition Hyperlipidemia Kidney stone on left side had to have blasted and stented (treated Dr. Mittal) Vitamin D deficiency PAST SURGICAL HISTORY Procedure Laterality Date EXTENSIVE HIP SURGERY Right 09/17/2021 PAST SURGICAL HISTORY OF 04/04/2009 kidney stone, blasted, stent placed PAST SURGICAL HISTORY OF 04/19/2013 Left elbow lateral epicondylar release, Dr. Damon PAST SURGICAL HISTORY OF Right Athroscopy ALLERGIES Allergen Reactions Prednisone Intolerance Did not tolerate and would not take again--not sure the exact adverse effect. Can take other steroids Current Outpatient Medications Medication Sig ALPRAZolam (XANAX) 1 mg tablet Take 1 tablet by mouth once daily as needed for anxiety for up to 60days. lisinopril (ZESTRIL) 10 mg tablet Take 1 tablet by mouth once daily. atorvastatin (LIPITOR) 20 mg tablet Take 1 tablet by mouth once daily. metFORMIN ER (GLUCOPHAGE XR) 500 mg 24 hr tablet Take 4 tablets by mouth daily with breakfast. alfuzosin SR (UROXATRAL) 10 mg 24 hr tablet Take 1 tablet by mouth daily at bedtime. Cholecalciferol, Vitamin D3, (VITAMIN D-3) 2,000 unit cap Take 1 capsule by mouth once daily. blood sugar diagnostic (BLOOD GLUCOSE TEST) test strip Test blood sugar(s) 1 times daily and as needed. Dx: Type 2 DM - Uncontrolled E11.9 Insulin: No aspirin, enteric coated (ECOTRIN LOW STRENGTH) 81 mg EC tablet Take 1 tablet by mouth once daily. Lancets lancets Test blood sugar(s) 1 times daily. Dx: Type 2 DM - Uncontrolled E11.65 Insulin: No benzonatate (TESSALON PERLES) 100 mg capsule Take 1 capsule by mouth three times daily as needed for cough. ALPRAZolam (XANAX) 1 mg tablet Take 1 tablet by mouth once daily as needed for anxiety for up to 60days. No current facility-administered medications for this visit. FAMILY HISTORY Problem Relation Age of Onset Coronary Artery Disease Father CABG at age 58 None Mother None Sister None Brother Ischemic Heart Disease Paternal Grandmother Stroke Paternal Grandmother Stroke Maternal Grandmother other (leukemia [Other]) Paternal Grandfather Social History Tobacco Use Smoking status: Former Smokeless tobacco: Never Vaping Use Vaping Use: Never used Substance Use Topics Alcohol use: Yes Alcohol/week: 5.0 - 7.5 standard drinks of alcohol Types: 2 - 3 Glasses of Wine (5oz) per week Comment: 3-4 times a week Drug use: Yes Frequency: 3.0 times per week Types: Marijuana Comment: Several times per week REVIEW OF SYSTEMS GENERAL: No weight loss, malaise or fevers HEENT: Negative for frequent or significant headaches, No changes in hearing or vision, no nose bleeds or other nasal problems NECK: Negative for lumps, goiter, pain and significant neck swelling RESPIRATORY: Negative for cough, hemoptysis, wheezing, COPD, dyspnea or shortness of breath CARDIOVASCULAR: Negative for chest pain, leg swelling, hypertension, CHF or palpitations GI: No nausea, vomiting, or diarrhea (except due to Metformin but not severe) : No history of dysuria, frequency or incontinence MUSCULOSKELETAL: right hip pain SKIN: Negative for lesions, rash, and itching PSYCH: Negative for sleep disturbance, mood disorder and recent psychosocial stressors HEMATOLOGY/LYMPHOLOGY: Negative for prolonged bleeding, bruising easily or swollen nodes ENDOCRINE: Negative for cold or heat intolerance, polyuria, polydipsia and goiter NEURO: No history of headaches, syncope, paralysis, seizures or tremors PHYSICAL EXAMINATION: Blood pressure 104/70, pulse 72, temperature 36.1 C (97 F), resp. rate 18, weight 106.6 kg (235 lb), SpO2 97 %. General appearance: well appearing, in no acute distress, well-hydrated, well nourished Skin: Skin color, texture, turgor normal. No significant rashes or lesions. Head: Normal Eyes: Anicteric sclera. Pupils are equally round and reactive to light. Extraocular movements are intact. Ears: External ears normal. Canals clear. TM's unremarkable. Nose/Sinuses: negative Oropharynx: Lips, mucosa, and tongue normal. Teeth and gums normal. Oropharynx normal. Neck: Neck supple, no adenopathy; thyroid symmetric, normal size, no bruits. Lungs: Lungs clear to auscultation Heart: negative. RRR without murmur, gallop, or rubs. No ectopy. Abdomen: Abdomen soft, non-tender. Bowel sounds normal. No masses, organomegaly Extremities: Extremities normal. No deformities, edema, or skin discoloration. Good capillary refill. Musculoskeletal: grossly normal Peripheral pulses: Normal Neuro: Gait normal. Reflexes normal and symmetric. Sensation grossly intact. No gross focal neurological deficits. Feet:Shoes and socks removed, No deformities, ulcers, calluses, normal distal pulses, and sensitiveto 10 gm monofilament Encounter Diagnosis ICD-10-CM 1. Preop exam for internal medicine Z01.818 2. Type 2 diabetes mellitus without complication, without long-term current use of insulin (HCC) E11.9 atorvastatin (LIPITOR) 20 mg tablet ALBUMIN/CREAT RATIO RND UR Controlled with current management. 3. Hypertension, essential I10 Controlled with present management 4. Panic F41.0 ALPRAZolam (XANAX) 1 mg tablet Some increased anxiety so needing to take Xanax more often than usual. Okayed RX 5. Benign prostatic hyperplasia, unspecified whether lower urinary tract symptoms present N40.0 alfuzosin SR (UROXATRAL) 10 mg 24 hr tablet History of urinary retention post op; stay on med 6. Encounter for immunization Z23 PNEUMOCOCCAL VACCINE (PREVNAR 20) Patient here for routinely yearly exam and needed preop evaluation done as noted in HPI. It is over30 days from time of surgery as discussed with patient, Will communicate results of preop evaluation with his surgeon via fax of this H&P. Can do an appointment to verify still stable within 30 days of surgery if needed by his orthopedic surgeon. Noted that he will have PAT done through [facility]. No medical contraindications to planned surgical procedure. His stable with management of diabetes, and anxiety controlled with alprazolam. Blood pressure well controlled too. He may proceed with planned surgical procedure. Stay on current meds perioperatively except hold metformin the morning of surgery since will be NPO. Can resume when able to eat normally. Patient was also here for yearly exam and follow up. Above issues addressed with patient. Patient involved in shared decision making for management of medical issues. History and medications reviewed. Epic updated as needed Refills taken care of and meds adjusted as indicated after reviewed history, exam and labs. Health Maintenance reviewed. Updated record and/or ordered tests as recorded. Encouraged on efforts at healthy diet and regular exercise and adequate sleep. Vesta Stallworth MD documented in this encounterBarney Children'S Medical Center06-19-2023 Miscellaneous Notes* Telephone Encounter - Vesta Stallworth MD - 09/20/2022 7:49 PM EDT The following approved medication requests have been transmitted electronically. Requested Prescriptions Signed Prescriptions Disp Refills ALPRAZolam (XANAX) 1 mg tablet 30 tablet 0 Sig: Take 1 tablet by mouth once daily as needed for anxiety for up to 60 days. Authorizing Provider: VESTA STALLWORTH MD PDMP reviewed. * Telephone Encounter - Kate Sarah LPN - 09/20/2022 4:22 PM EDT Last office visit: 03/12/22 Next appointment scheduled: 11/12/22 Patient phones requesting refills as follows: Requested Prescriptions Pending Prescriptions Disp Refills ALPRAZolam (XANAX) 1 mg tablet 30 tablet 0 Sig: Take 1 tablet by mouth once daily as needed for anxiety for up to 60 days. Kate Sarah LPN documented in this encounterBarney Children'S Medical Center04-10-2023 Miscellaneous Notes* Telephone Encounter - Kate Sarah LPN - 07/12/2022 1:10 PM EDT Last office visit: 03/12/22 Next appointment scheduled: 11/12/22 Last labs: 02/04/22 Patient phones requesting refills as follows: Requested Prescriptions Pending Prescriptions Disp Refills lisinopril (ZESTRIL) 10 mg tablet 90 tablet 3 Sig: Take 1 tablet by mouth once daily. Please review and advise. Kate Sarah LPN documented in this encounterBarney Children'S Medical Center04-07-2023 Miscellaneous Notes* Telephone Encounter - Yosef Sunshine APRN.KRISTINA - 07/09/2022 11:41 AM EDT PDMP website checked and validated. All prescriptions have been APPROPRIATELY filled. No suspiciousactivity was identified. 07/09/2022 by Yosef Sunshine APRN.KRISTINA * Telephone Encounter - Fang Baez LPN - 07/08/2022 2:09 PM EDT Patient has been identified by name and date of : Yes, Provider Leigh Ann Date 07/08/22 Time 2:09pm Patient phones for refill(s): Requested Prescriptions Pending Prescriptions Disp Refills ALPRAZolam (XANAX) 1 mg tablet 30 tablet 0 Sig: Take 1 tablet by mouth once daily as needed for anxiety for up to 60 days. Date of last office visit in primary care: 03/12/22 Last 2 Encounter Wt Readings: Date: Wt: 03/12/2022 110.2 kg (243 lb) 12/29/2021 108.9 kg (240 lb) Please advise. Thank you. Fang Baez LPN documented in this encounterBarney Children'S Medical Center02-08-2023 History of Present illness Narrative* Rhoda Langley MD - 05/12/2022 8:50 AM EST Images from the original note were not included. [facility] [address] [place] [id number] Dept: [phone] Dept Chief Complaint Patient presents with Hip Pain Subjective History of Present Illness: Gala Yun is a 42 y.o. male who presents today for ultrasound guided injection of right hip. He rates symptoms as a 3/10 at rest and a 8/10 at worst. Imaging to date: MRI April 2022 Prior targeted injections: Corticosteroid February 2022. No change in symptoms. Fall risk assessment: Less than 65, not applicable Objective There were no vitals taken for this visit. Physical Exam: No sign of infection overlying injection site. External Notes No pertinent interval updates Labs No results found for: HGBA1C No results found for: CREATININE Imaging No new imaging since last visit EMG/NCT N/A Procedure Procedure completed today, details below Use of ultrasound visualization of the needle was required to increase patient's safety by excluding inadvertent intermuscular or intertendinous placement and minimizing bleeding and injury by avoiding osteochondral and nearby neurovascular structures. Guidance also maximizes accurate injection placement and likely clinical benefit beyond that obtained from a non-guided injection. This allows increased diagnostic specificity when evaluating effectiveness of the injection. Verbal and written consent was obtained from the patient. Consent included possibility of bleeding,infection, worsening pain. Initial attempt at left antecubital blood draw did not yield the vein. Right antecubital blood draw yielded 53 mL of whole blood which was spun down, using the Klaus systemdialing in 2 % hematocrit, PRP that yielded 2.6 mL of PRP and I added 3.4 mL of PPP for a total of 6 mL. Using real-time ultrasound I localized the Right hip joint. Sterile prep. Using a 20-gauge 3.5inch needle and using direct ultrasound guidance I anesthetized the soft tissues with 5mL of 1% lidocaine to and then injected 0.5 mL of normal saline to flush any residual anesthetic out of the needle. I then injected a total of 6 mL of the PRP into the Right hip joint. The patient tolerated the procedure well. There were no complications. Pertinent ultrasound images were saved. Assessment Diagnosis Plan 1. Tear of right acetabular labrum, initial encounter lidocaine (Xylocaine) 1 % injection 5 mL UNABLE TO FIND CLINIC ADMINISTERED MED 0.5 mL 2. Primary osteoarthritis of right hip lidocaine (Xylocaine) 1 % injection 5 mL UNABLE TO FIND CLINIC ADMINISTERED MED 0.5 mL Plan - Post injection instructions were given to the patient. - Keep with HEP. - f/u per Dr. Mathews Follow up if symptoms worsen or fail to improve. Rhoda Langley MD 05/12/2022 11:25 AM Please note that portions of this note may have been completed with voice recognition software. Documentation reviewed prior to signing but minor errors in animal rescuer may have occurred. documented in this encounterSCincinnati VA Medical [id number] Telephone encounter Note* Telephone Encounter - Beulah Aponte - 04/29/2022 10:46 AM EST Pt was seen today by Dr. Langley in the [place] office and paid for his PRP injection via credit card. [facility] [id number] Miscellaneous Notes* Telephone Encounter - Beulah Aponte - 04/29/2022 10:46 AM EST Pt was seen today by Dr. Langley in the [place] office and paid for his PRP injection via credit card. documented in this [facility]01-26-2023 History of Present illness Narrative* Rhoda Langley MD - 04/29/2022 9:30 AM EST Images from the original note were not included. [facility] [address] [facility] [id number] Dept: [phone] Dept Chief Complaint Patient presents with New Patient Hip Pain right Subjective History of Present Illness: Gala Yun is a 42 y.o. male who presents today for evaluation of right hip pain. Location: lateral and medial Onset: over the last year, chronic Injury: no Quality: aching, throbbing, and sharp Mechanical symptoms: popping, crepitus and catching Radiation of symptoms: yes - radiates down his right leg all the way to his pinky toe and sometimesto his groin when he is working out Severity: 3/10 at rest and 8/10 at worst Exacerbating factor(s): walking, prolonged standing, and prolonged sitting Relieving factor(s): lying down, standing still Timing: all day Imaging to date: None Treatment to date: PT/OT/HEP: yes, formal physical therapy for did 30 sessions October-February 2022. Helpful at first and then towards the end it became very painful Ice: yes, helpful Heat: yes, not helpful Medications: Tylenol: no NSAIDs: yes, Ibuprofen/Motrin/Advil, helpful Oral steroids: no Muscle relaxants: no Nerve medications: no Targeted injections: Corticosteroid February 2022. No change in symptoms. 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 Respiratory: Breathing comfortably on room air. No respiratory distress. Skin: Warm, dry, intact. No visible rashes or erythema overlying area of focused exam. RIGHT HIP: Gait is normal. External Notes I personally reviewed external notes from: Dr. Mathews Labs No results found for: HGBA1C No results found for: CREATININE Imaging No imaging available for review EMG/NCT N/A Procedure No procedures completed today Assessment Diagnosis Plan 1. Right hip pain 2. Tear of right acetabular labrum, initial encounter 3. Primary osteoarthritis of right hip Plan -We discussed his MRI findings as well as his right hip pain and treatment options. -We discussed the role of PRP and that our goal is to obtain 60-80% improvement on the problem. There is an understanding that it can take about 6 to 8 weeks to notice any benefit from this PRP injection. We reviewed that my typical approach is 1 injection of PRP (except for the knee) and wait approximately 3-4 months and sometimes up to 6 months prior to repeat injection depending on the benefit. Pre and post care information of the PRP injection was given to the patient. Follow up if symptoms worsen or fail to improve. Rhoda Langley MD 04/29/2022 9:25 AM Please note that portions of this note may have been completed with voice recognition software. Documentation reviewed prior to signing but minor errors in animal rescuer may have occurred. documented in this encounterSCincinnati VA Medical [id number] Telephone encounter Note* Telephone Encounter - Sejal Silverman MA - 04/21/2022 11:35 AM EST Received records, imported into chart [facility] [id number] Miscellaneous Notes* Telephone Encounter - Sejal Silverman MA - 04/21/2022 11:35 AM EST Received records, imported into chart * Telephone Encounter - Sejal Silverman MA - 04/20/2022 2:51 PM EST Patient was referred by Dr. Mathews this morning. Waiting on records. 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 Langley documented in this encounterSCincinnati VA Medical [id number] Telephone encounter Note* Telephone Encounter - Sejal Silverman MA - 04/20/2022 2:51 PM EST Patient was referred by Dr. Mathews this morning. Waiting on records. 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 Langley [facility] [id number] History of Present illness Narrative* Vesta Stallworth MD - 03/12/2022 9:48 AM EST This note was created using Yonesriter. Subjective Gala Yun is a 42 year old male. Patient presents with: F/U 6 months SUBJECTIVE: Gala Yun is a 42 year old year old gentleman here today for 6 month follow up appointment forreview of medical conditions. Had arthroscopic hip surgery. Was extensive--3 hours. Was long recovery. On couch for weeks. Doing well now. PAST MEDICAL HISTORY Diagnosis Date Atypical chest pain 07/17/2015 Diabetes (HCC) Elevated bilirubin ?chronic versus intermittent mild elevation sicne childhood--benign condition Hyperlipidemia Kidney stone on left side had to have blasted and stented (treated Dr. Mittal) Vitamin D deficiency PAST SURGICAL HISTORY Procedure Laterality Date EXTENSIVE HIP SURGERY Right 09/17/2021 PAST SURGICAL HISTORY OF 04/04/2009 kidney stone, blasted, stent placed PAST SURGICAL HISTORY OF 04/19/2013 Left elbow lateral epicondylar release, Dr. Damon PAST SURGICAL HISTORY OF Right Athroscopy Current Outpatient Medications Medication Sig atorvastatin (LIPITOR) 20 mg tablet Take 1 tablet by mouth once daily. ALPRAZolam (XANAX) 1 mg tablet Take 1 tablet by mouth once daily as needed for anxiety for up to 60days. alfuzosin SR (UROXATRAL) 10 mg 24 hr tablet Take 1 tablet by mouth daily at bedtime. metFORMIN ER (GLUCOPHAGE XR) 500 mg 24 hr tablet Take 2 tablets by mouth daily with breakfast. lisinopril (ZESTRIL, PRINIVIL) 10 mg tablet Take 1 tablet by mouth once daily. Cholecalciferol, Vitamin D3, (VITAMIN D-3) 2,000 unit cap Take 1 capsule by mouth once daily. blood sugar diagnostic (BLOOD GLUCOSE TEST) test strip Test blood sugar(s) 1 times daily and as needed. Dx: Type 2 DM - Uncontrolled E11.9 Insulin: No aspirin, enteric coated (ECOTRIN LOW STRENGTH) 81 mg EC tablet Take 1 tablet by mouth once daily. Lancets lancets Test blood sugar(s) 1 times daily. Dx: Type 2 DM - Uncontrolled E11.65 Insulin: No No current facility-administered medications for this visit. Review of Systems Objective BP 132/82 Pulse 72 Wt 110.2 kg (243 lb) SpO2 97% BMI 28.08 kg/m Last 5 Encounter Wt Readings: Date: Wt: 03/12/2022 110.2 kg (243 lb) 12/29/2021 108.9 kg (240 lb) 09/22/2021 105.2 kg (232 lb) 09/18/2021 105.2 kg (232 lb) 09/04/2021 106.1 kg (234 lb) No waist measurement recorded Estimated body mass index is 28.08 kg/m as calculated from the following: Height as of 12/29/21: 198.1 cm (6' 6). Weight as of this encounter: 110.2 kg (243 lb). Last 5 Encounter BP Readings: Date: BP: 03/12/2022 132/82 12/29/2021 116/88 09/22/2021 112/78 09/18/2021 136/60 09/04/2021 114/78 03/12/22 0942 03/12/22 1007 BP: 132/82 116/72 Pulse: 72 SpO2: 97% Weight: 110.2 kg (243 lb) Physical Exam Component Latest Ref Rng & Units 08/14/2021 02/04/2022 Protein, Total 6.3 - 8.0 g/dL 6.3 Albumin 3.9 - 4.9 g/dL 4.5 Calcium 8.5 - 10.2 mg/dL 9.0 Bilirubin, Total 0.2 - 1.3 mg/dL 1.7 (H) Alkaline Phosphatase 38 - 113 U/L 59 AST 14 - 40 U/L 24 ALT 10 - 54 U/L 24 Glucose 74 - 99 mg/dL 234 (A) 154 (H) BUN 9 - 24 mg/dL 13 Creatinine 0.73 - 1.22 mg/dL 0.9 0.87 Sodium 136 - 144 mmol/L 140 (A) 138 Potassium 3.7 - 5.1 mmol/L 3.9 3.9 Chloride 97 - 105 mmol/L 100 101 CO2 22 - 30 mmol/L 24 Anion Gap 9 - 18 mmol/L 11 13 eGFR >=60 mL/min/1.73m 110 WBC 3.70 - 11.00 k/uL 4.64 RBC 4.20 - 6.00 m/uL 5.42 Hemoglobin 13.0 - 17.0 g/dL 16.9 Hematocrit 39.0 - 51.0 % 47.0 MCV 80.0 - 100.0 fL 86.7 MCH 26.0 - 34.0 pg 31.2 MCHC 30.5 - 36.0 g/dL 36.0 RDW-CV 11.5 - 15.0 % 13.1 Platelet Count 150 - 400 k/uL 149 (L) MPV 9.0 - 12.7 fL 9.7 Absolute nRBC <0.01 k/uL <0.01 Cholesterol, Total <200 mg/dL 133 Triglyceride <150 mg/dL 158 (H) HDL Cholesterol >39 mg/dL 42 Non HDL Cholesterol <130 mg/dL 91 Fasting Time hrs 13 VLDL Cholesterol <30 mg/dL 32 (H) TC:HDL Ratio <5.10 3.17 LDL Cholesterol <100 mg/dL 59 LDL:HDL Ratio <2.54 1.40 Urea Nitrogen 6 - 20 mg/dL 14 Calcium 8.8 - 10.5 MG/DL 9.4 Hemoglobin A1C 4.3 - 5.6 % 7.0 6.1 (H) Estimated Average Glucose mg/dL 128 Vitamin D 25 Hydroxy 31.0 - 80.0 ng/mL 54.9 Assessment and Plan Encounter Diagnosis ICD-10-CM 1. Type 2 diabetes mellitus without complication, without long-term current use of insulin (HCC) E11.9 metFORMIN ER (GLUCOPHAGE XR) 500 mg 24 hr tablet ALBUMIN/CREAT RATIO RND UR HGB A1C COMP METABOLIC PANEL 2. Hypertension, essential I10 COMP METABOLIC PANEL CBC 3. Vitamin D deficiency E55.9 VITAMIN D 25 HYDROXY 4. Panic F41.0 ALPRAZolam (XANAX) 1 mg tablet Some increased anxiety so needing to take Xanax more often than usual. Okayed RX 5. Encounter for immunization Z23 INFLUENZA VACCINE QUADRIVALENT 6 MO - 64 YRS IM 6. Hypertriglyceridemia E78.1 LIPID PANEL BASIC Above issues addressed with patient. Patient involved in shared decision making for management of medical issues. History and medications reviewed. Epic updated as needed Refills and/or prescriptions taken care of and meds adjusted as indicated after reviewed history, exam and labs. Health Maintenance reviewed. Updated record and/or ordered tests as recorded. Encouraged on efforts at healthy diet and regular exercise and adequate sleep. Vesta Stallworth MD documented in this encounterBarney [facility]11-04-2022 Miscellaneous Notes* Telephone Encounter - Kate Sarah LPN - 02/05/2022 11:24 AM EDT Copy of all completed results faxed to number listed below. * Telephone Encounter - Cathy Aguayo LPN - 02/04/2022 10:03 AM EDT Mayuri from Dr Gilman's office at [facility] is calling for pt's HgbA1c results that was drawn this morning. Epic shows test is in process. Mayuri asking for result to be faxed to [phone] attn: Mayuri when result is available. Cathy Aguayo LPN documented in this encounterBarney Children'S Medical Center11-04-2022 Miscellaneous Notes* Telephone Encounter - Manjit Mcintosh RN - 02/05/2022 8:35 AM EDT Faxed recent a1c results to [facility], per Dr. Gilman office request. . documented in this encounterBarney Children'S [facility] Center10-24-2022 Miscellaneous Notes* Telephone Encounter - Vesta Stallworth MD - 01/25/2022 3:02 PM EDT Prior prescriptions had lasted longer--3 to 5 months. This should last at least 2 months, especially since taking medical marijuana. I panic attacks not controlled with that and occasional Xanax, need to consider other meds or management rather than increasing frequency of Xanax prison. Due for follow up appointment. Noted hat preop in September with Joelle and acute appointment with Dr. Gaona in September. Should have follow up at least by end of March--last saw him March 13. Should be in office, not VV. The following approved medication requests have been transmitted electronically. Requested Prescriptions Signed Prescriptions Disp Refills ALPRAZolam (XANAX) 1 mg tablet 30 tablet 0 Sig: Take 1 tablet by mouth once daily as needed for anxiety for up to 60 days. Authorizing Provider: VESTA STALLWORTH MD documented in this encounterBarney Children'S [facility] Center09-27-2022 History of Present illness Narrative* Nile Plata PA-C - 12/29/2021 9:45 AM EDT Images from the original note were not included. [facility] ESTABLISHED PATIENT CLINIC NOTE Some elements copied from his previous note, which have been updated where appropriate, and all reflect current medical decision making from date of this visit. SERVICE DATE: 12/29/2021 SERVICE TIME: 9:47 AM NAME: Gala Yun CHIEF COMPLAINT: HISTORY OF PRESENT ILLNESS: Gala Yun is a 41 year old Male with PMH including BPH and post-op urine retention presenting with improvement while on Flomax but he states he is having retrograd ejaculation so we will switch to Uroxatral today The patient reports much better urine control with some minor retention here and there FLUIDS: We discussed the common causes of urinary frequency and urgency, and restricting water intake In hopes to mitigate the need to urinate, we discussed how this behavior more often worsen the problem not improving it, we discussed increasing daily water intake to 64-84 oz 7a -7p and try to reduce bladder irritants, caffeine, alcohol and acid foods and drink. LUTS: DYSURIA: no URGENCY: Yes Other symptoms: ED - no LABS: Hematocrit (%) Date Value 07/02/2020 47.8 08/17/2018 49.1 03/07/2018 49.3 09/06/2014 46.2 No results found for: PSA Testosterone (ng/dL) Date Value 08/17/2018 590 MEDICATIONS: ALPRAZolam (XANAX) 1 mg tablet Take 1 tablet by mouth once daily as needed for anxiety for up to 60days. metFORMIN ER (GLUCOPHAGE XR) 500 mg 24 hr tablet Take 2 tablets by mouth daily with breakfast. lisinopril (ZESTRIL, PRINIVIL) 10 mg tablet Take 1 tablet by mouth once daily. atorvastatin (LIPITOR) 20 mg tablet Take 1 tablet by mouth once daily. Cholecalciferol, Vitamin D3, (VITAMIN D-3) 2,000 unit cap Take 1 capsule by mouth once daily. blood sugar diagnostic (BLOOD GLUCOSE TEST) test strip Test blood sugar(s) 1 times daily and as needed. Dx: Type 2 DM - Uncontrolled E11.9 Insulin: No aspirin, enteric coated (ECOTRIN LOW STRENGTH) 81 mg EC tablet Take 1 tablet by mouth once daily. Lancets lancets Test blood sugar(s) 1 times daily. Dx: Type 2 DM - Uncontrolled E11.65 Insulin: No alfuzosin SR (UROXATRAL) 10 mg 24 hr tablet Take 1 tablet by mouth daily at bedtime. naproxen (NAPROSYN) 500 mg tablet Take 500 mg by mouth once daily. baclofen (LIORESAL) 10 mg tablet take 1 tablet by mouth every 8 hours if needed for muscle spasm (Patient not taking: Reported on 12/29/2021) ondansetron orally disintegrating (ZOFRAN ODT) 4 mg disintegrating tablet Take by mouth. (Patient not taking: Reported on 12/29/2021) PAST MEDICAL HISTORY: PAST MEDICAL HISTORY Diagnosis Date Atypical chest pain 07/17/2015 Diabetes (HCC) Elevated bilirubin ?chronic versus intermittent mild elevation sicne childhood--benign condition Hyperlipidemia Kidney stone on left side had to have blasted and stented (treated Dr. Mittal) Vitamin D deficiency PAST SURGICAL HISTORY: PAST SURGICAL HISTORY Procedure Laterality Date EXTENSIVE HIP SURGERY Right 09/17/2021 PAST SURGICAL HISTORY OF 04/04/2009 kidney stone, blasted, stent placed PAST SURGICAL HISTORY OF 04/19/2013 Left elbow lateral epicondylar release, Dr. Damon PAST SURGICAL HISTORY OF Right Athroscopy FAMILY HISTORY: FAMILY HISTORY Problem Relation Age of Onset Coronary Artery Disease Father CABG at age 58 None Mother None Sister None Brother Ischemic Heart Disease Paternal Grandmother Stroke Paternal Grandmother Stroke Maternal Grandmother other (leukemia [Other]) Paternal Grandfather SOCIAL HISTORY: Social Connections: Not on file REVIEW OF SYSTEMS: GENERAL: No fever, chills, weight loss, or fatigue. All other systems reviewed and are negative PHYSICAL EXAMINATION: Blood pressure 116/88, pulse 88, temperature 36.1 C (97 F), temperature source Temporal, resp. rate14, height 198.1 cm (6' 6), weight 108.9 kg (240 lb), SpO2 97 %. GENERAL: WNL nutrition, no deformities, healthy appearing NEURO: Awake, alert and oriented x 3 and Normal gait PSYCH: No signs of depression, anxiety, or agitation ENMT (Ear, Nose, Mouth, Throat): No masses, adenopathy, icterus. Thyroid nonpalpable RESP: NL effort, no retractions or purse-lip breathing. CV: No extremity swelling, varices, edema, pallor, erythema GASTROINTESTINAL: Soft, nontender, nondistended, no masses. HERNIAS: None SKIN: No rash, lesions No palpable lymphadenopathy MUSCULOSKELETAL: Extremities normal. No deformities, edema, clubbing or skin discoloration. GENITOURINARY: MALE EXAM: Rectal Exam: Prostate: size (30 grams), symmetrical, nontender, w/o nodules. Pelvic Floor - No Spasm Bilaterally PROBLEM LIST REVIEW: Yes LABS: Results for orders placed or performed in visit on 12/29/21 UA DIP, URINE (POC) Result Value Ref Range GLUCOSE UA (POCT) Negative Negative mg/dL BILIRUBIN UA (POCT) Negative Negative KETONE UA (POCT) Negative Negative mg/dL SPECIFIC GRAVITY UA (POCT) 1.020 1.005 - 1.030 HEMOGLOBIN/BLOOD UA (POCT) Negative Negative PH UA (POCT) 6.0 4.5 - 8.0 PROTEIN UA (POCT) Negative Negative mg/dL UROBILINOGEN UA (POCT) 0.2 Normal E.U./dL NITRITE UA (POCT) Negative Negative LEUKOCYTES UA (POCT) Negative Negative COLOR UA (POCT) Dark yellow CLARITY UA (POCT) Clear PROCEDURES: PVR: 0 ml IMAGING: IMPRESSION/PLAN: 41 year old male with . 1. Acute retention of urine - ICD9: 788.29, ICD10: R33.8 Resolved > Flomax SE Retrograde > Switch to Uroxatral > 1 year Appt w/ B. TIFFANI Plata MT, PA-C with PSA prior TIFFANI Evans MT, PA-C * Joyce Houser LPN - 12/29/2021 9:19 AM EDT Verified name and date of . CC Post Void Residual HPI: Gala Yun is a 41 year old male. The patient is here now for an appointment with TIFFANI Evans MT, PA-COV. Procedure: Explained procedure to patient and verbalizes understanding. Performed a PVR. Patient urinated and instructed to empty bladder as much as possible just prior to having PVR done using bladder ultrasound scanner. Results of scan: 0 mL The patient tolerated the procedure well. Plan: Appointment with Nile. documented in this encounterBarney Children'S Medical Center08-30-2022 Miscellaneous Notes* Telephone Encounter - Vesta Stallworth MD - 12/01/2021 12:40 AM EDT RX lasts several months. Not needing to take more frequently this time. Aware that he does medical marijuana. Continue present management since current regimen effective for anxiety so can remain active. The following approved medication requests have been transmitted electronically. Requested Prescriptions Signed Prescriptions Disp Refills ALPRAZolam (XANAX) 1 mg tablet 30 tablet 0 Sig: Take 1 tablet by mouth once daily as needed for anxiety for up to 60 days. Authorizing Provider: VESTA STALLWORTH MD * Telephone Encounter - Carol Anaya Ma - 11/30/2021 1:40 PM EDT Last routine OV: 03/13/21 Next OV: 03/12/22 documented in this encounterBarney Children'S Medical Center06-21-2022 History of Present illness Narrative* Nile Plata PA-C - 09/22/2021 5:21 PM EDT CC Avendano in Place HPI: Gala Yun is a 41 year old male with a history of post-op urinary retention after is hip surgery . He was placed on flomax after failed TOV Avendano insertion occurred on September 22, 2021 after surgery The patient is here now for a TOV and avendano catheter removal. Procedure: Performed a TOV. Bladder filled through avendano with 200 ml of Sterile water/Saline, removing water from balloon the avendano was removed and patient voided 200 ml. Pt WAS able to empty his bladder on own without straining The indwelling avendano was removed without difficulty. The patient tolerated the procedure well. Assessment/Plan: > Avendano catheter removal with TOV ; patient to remain on paul of 3 months > Successful avendano catheter removal > Continue Flomax 0.4 mg and RTC if unable to urinate on his own. Follow up 3 month with TIFFANI Page MT, PA-C for New medication started TIFFANI Evans MT, PA-C documented in this encounterBarney Children'S Medical Center06-20-2022 Miscellaneous Notes* Telephone Encounter - Karen Crawford RN - 09/21/2021 10:50 AM EDT Pts called in and reports they had made an appointment with Nile Plata on Tuesday For 09/22 to get his avendano removed. Did not show up on Pts MyChart, and I didn't see appointment. Put Pts through to scheduling to get appointment set up. * Telephone Encounter - Filomena Tomlin LPN - 09/19/2021 11:35 AM EDT Patient's notified that will check on Tuesday for available appointments. Patient wishes to go where ever we can get him in, but wishes to not drive too far due to pain. They would also prefer the morning. Filomena Tomlin LPN * Telephone Encounter - Vesta Stallworth MD - 09/19/2021 9:58 AM EDT Will check with urology on Tuesday. Looks like they were leaning towards [facility] area. * Telephone Encounter - Filomena Tomlin LPN - 09/19/2021 8:34 AM EDT Phoned pt's and advised of options with the avendano catheter. Patient is ok with keeping cath inif that is in his best interest. Patient's is wanting to see if we can get patient in sooner with the urologist. Please advise further. Filomena Tomlin LPN * Telephone Encounter - Vesta Stallworth MD - 09/18/2021 7:43 PM EDT Below noted. If not able to get in with urologist to take care of the issue and pain is severe enough patient wants to catheter pulled and risk urinary retention, would see if he could come in for nurse to pull catheter (if this is something out nurse can do tomorrow; schedule in nurse visit schedule or in my schedule if need be--okay to double book). * Telephone Encounter - Manjit Mcintosh RN - 09/18/2021 4:38 PM EDT phoned expressing frustration. Reports Nile Plata is not available on Tuesday. Dr. Oliveirasoffice is closed right now. reports the avendano is hurting patient (at tip of penis everytime hemoves) and he really wants it out. Viewed several options with . Advised she may be able to schedule with provider at [facility], [facility], and several other [facility]. Would need to talk to pss to find out if there are any openings. concerned about the travel, and may try searching in [place], or [place]. Will let pcp know if needs referral sent. * Telephone Encounter - Carol Anaya Ma - 09/18/2021 4:17 PM EDT Patient saw Dr. Gaona today regarding below, will route for fyi * Telephone Encounter - Eli Howe Pss - 09/18/2021 3:26 PM EDT called into schedule with Urology. I explained that Nile Plata is only in [place] on Tuesday and Fridays and the next opening in [place] is 09/25 offered appointments at other locations for Tuesday and she advised that the patient could not travel and was not happy and hung up. documented in this encounterBarney Children'S Medical Center06-17-2022 History of Present illness Narrative* Jorge Gaona MD - 09/18/2021 2:53 PM EDT This note was created using [employer]. Subjective Patient presents with: ER F/U Gala Yun is a 41 year old male here with spouse. PCP Vesta Stallworth MD. He had right hip surgery at [facility] yesterday. Last night he had inability to void with pain and had indwelling catheter placed. He was having catheter related pain and was asking this to be removed today. He took one tamsulosin last night from a previous kidney stone issue, but he had no more tamsulosin at home. 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 metFORMIN ER (GLUCOPHAGE XR) 500 mg 24 hr tablet Take 2 tablets by mouth daily with breakfast. ALPRAZolam (XANAX) 1 mg tablet Take 1 tablet by mouth once daily as needed for anxiety for up to 60days. lisinopril (ZESTRIL, PRINIVIL) 10 mg tablet Take 1 tablet by mouth once daily. atorvastatin (LIPITOR) 20 mg tablet Take 1 tablet by mouth once daily. Cholecalciferol, Vitamin D3, (VITAMIN D-3) 2,000 unit cap Take 1 capsule by mouth once daily. blood sugar diagnostic (BLOOD GLUCOSE TEST) test strip Test blood sugar(s) 1 times daily and as needed. Dx: Type 2 DM - Uncontrolled E11.9 Insulin: No aspirin, enteric coated (ECOTRIN LOW STRENGTH) 81 mg EC tablet Take 1 tablet by mouth once daily. Lancets lancets Test blood sugar(s) 1 times daily. Dx: Type 2 DM - Uncontrolled E11.65 Insulin: No No current facility-administered medications for this visit. Review of Systems Constitutional: Negative for chills and fever. Gastrointestinal: Positive for abdominal pain. Negative for nausea and vomiting. Genitourinary: Negative for dysuria and hematuria. Musculoskeletal: Positive for gait problem. Objective BP 136/60 (BP Site: Left Arm, BP Position: Sitting, BP Cuff Size: Large Adult) Pulse 89 Temp 36.8 C (98.2 F) Resp 14 Ht 198.1 cm (6' 6) Wt 105.2 kg (232 lb) SpO2 96% BMI 26.81 kg/m Physical Exam Constitutional: General: He is not in acute distress. Comments: On wheelchair. Abdominal: General: There is no distension. Tenderness: There is no abdominal tenderness. Genitourinary: Comments: Indwelling avendano in place, urine clear. Neurological: Mental Status: He is alert. Assessment and Plan 1. Acute retention of urine - ICD9: 788.29, ICD10: R33.8 (primary diagnosis) - TAMSULOSIN 0.4 MG CAPSULE - CONSULT TO UROLOGY 2. S/P hip arthroscopy - ICD9: V45.89, ICD10: Z98.890 Shared Medical Decision Making was done: Medication: tamsulosin. Benefits: Medication may help. Risks: Possible side effects were discussed. Options: I can remove catheter today, but there is a good chance he will retain again and have to go back to the ER. We agreed to keep the catheter in a few more days. Schedule with urology for voiding trial. Start Flomax; discontinue after a few weeks if better. Jorge Gaona MD documented in this encounterBarney Children'S Medical Center06-13-2022 Hospital Discharge instructions Additional Instructions The Avendano bag whenever half to three quarters full. Call and follow-up with Dr. Isidoro Mittal on Tuesday or Tuesday. Return if the catheter is not draining.[facility] Work Phone: [phone]) 744-185806-03-2022 History of Present illness Narrative* Joelle Older, [employer] WORK INSPECTOR.[employer] - 09/04/2021 8:08 AM EDT CC: Patient presents with: Pre-Op Exam HPI Gala Yun is a 41 year old male who presents today for pre-op evaluation. Surgical Procedure: right hip scope with labral repair, extensive STEVE Date of Procedure: 09/17/21 Surgeon: Dr. Reid RODGERS date: 08/20/21 1. Diabetes: Oral Diabetes: Home blood sugar readings: checks a couple times a week, fasting usually in the 130's He is compliant with medication(s) and is tolerating med(s) without any side effects. Denies increased thirst, urinary frequency, nocturia, fatigue, unintentional weight loss, blurred vision, numbness, tingling or pain in extremities, ulcers or sores on feet Last Ophthalmology exam was over one year ago Patient's last HgA1C was Hemoglobin A1C (%) Date Value 07/02/2020 6.1 07/01/2018 5.2 2. Hypertension requiring medication: Yes HTN-Medication changes:No Taking all medications as prescribed: Yes Side effects: No Home BP's: No Last 3 Encounter BP Readings: Date: BP: 09/04/2021 114/78 03/13/2021 112/76 02/05/2021 130/87 3. Congestive Heart Failure: No 4. Current Smoker within 1 Year: No 5. History of COPD: No 6. History of MYRA: No 7. Dialysis: No REVIEW OF SYSTEMS General: occasional mild night sweats, chronic. no fevers, no chills, no recurrent infections, no change in appetite, no change in energy and no significant changes in weight HEENT: no frequent or significant headaches, no changes in hearing, no visual changes Neck: no lumps, no pain and no swelling Respiratory: no cough, no wheezing, no shortness of breath, no hemoptysis Cardiovascular: no chest pain, no chest pressure, no palpitations, no swelling and no decrease in exercise tolerance GI: Negative for abdominal discomfort, blood in stools or black stools, change in bowel habit, heart burn, nausea, vomiting : No difficulty urinating, nocturia > 1 time per night or hematuria Neurologic: no headaches, no syncope, no seizures, no dizziness, no memory loss, no confusion, no muscle weakness, no involuntary movements, no tremor PAST MEDICAL HISTORY Diagnosis Date Diabetes (HCC) Elevated bilirubin ?chronic versus intermittent mild elevation sicne childhood--benign condition Hyperlipidemia Kidney stone on left side had to have blasted and stented (treated Dr. Mittal) Vitamin D deficiency PAST SURGICAL HISTORY Procedure Laterality Date PAST SURGICAL HISTORY OF 2009 kidney stone, blasted, stent placed PAST SURGICAL HISTORY OF 04/19/13 Left elbow lateral epicondylar release, Dr. Damon ALLERGIES Prednisone MEDICATIONS ALPRAZolam (XANAX) 1 mg tablet Take 1 tablet by mouth once daily as needed for anxiety for up to 60days. lisinopril (ZESTRIL, PRINIVIL) 10 mg tablet Take 1 tablet by mouth once daily. atorvastatin (LIPITOR) 20 mg tablet Take 1 tablet by mouth once daily. metFORMIN ER (GLUCOPHAGE XR) 500 mg 24 hr tablet Take 1 tablet by mouth daily with breakfast. Cholecalciferol, Vitamin D3, (VITAMIN D-3) 2,000 unit cap Take 1 capsule by mouth once daily. blood sugar diagnostic (BLOOD GLUCOSE TEST) test strip Test blood sugar(s) 1 times daily and as needed. Dx: Type 2 DM - Uncontrolled E11.9 Insulin: No aspirin, enteric coated (ECOTRIN LOW STRENGTH) 81 mg EC tablet Take 1 tablet by mouth once daily. Lancets lancets Test blood sugar(s) 1 times daily. Dx: Type 2 DM - Uncontrolled E11.65 Insulin: No meloxicam (MOBIC) 15 mg tablet Take 1 tablet by mouth once daily. take with food FAMILY HISTORY Problem Relation Age of Onset Coronary Artery Disease Father CABG at age 58 None Mother None Sister None Brother Ischemic Heart Disease Paternal Grandmother Stroke Paternal Grandmother Stroke Maternal Grandmother other (leukemia [Other]) Paternal Grandfather Social History Tobacco Use Smoking status: Former Smoker Smokeless tobacco: Never Used Substance Use Topics Alcohol use: Yes Alcohol/week: 5.0 - 7.5 standard drinks Types: 2 - 3 Glasses of Wine (5oz) per week Comment: 3-4 times a week Drug use: Yes Frequency: 10.0 times per week Types: Marijuana Comment: smoke every day vaping 2-3 pulls per occurrance PHYSICAL EXAM BP 114/78 Pulse (!) 56 Resp 14 Ht 196.9 cm (6' 5.5) Wt 106.1 kg (234 lb) BMI 27.39 kg/m General Appearance: well appearing, in no acute distress, alert Neck: Thyroid normal size and symmetric without palpable nodules, Neck supple, No adenopathy Oropharynx: lips normal without lesions, tongue midline and normal, soft palate, uvula, and tonsilsnormal Lungs: Lungs clear to auscultation. No wheezing, rhonchi, rales. Heart: RRR without murmur, gallop, or rubs. No ectopy Abdomen: soft, nondistended, nontender Feet:Shoes and socks removed, No deformities, ulcers, calluses, normal distal pulses, sensitive to 10 gm monofilament, vibratory perception normal, no edema Diagnoses/Plan 1. Pre-operative evaluation Reviewed PAT: CBC, CMP, EKG; all within acceptable limits There is no known pertinent medical condition which may affect emilee-operative course DOMINGUEZ risk: Patient is scheduled for a intermediate-risk procedure. Risk of 0% calculated using the NSQIP surgical risk calculator The patient is medically stable for surgery 2. Type 2 diabetes mellitus without complication, without long-term current use of insulin (HCC) - ICD9: 250.00, ICD10: E11.9 worsening control, HgbA1c done at PAT was 7.0 and previous 6.2 - Increase Metformin to 1000 mg daily - Blood glucose monitoring on a once a day schedule - Ophthalmology referral for eval/management of diabetic eye changes - METFORMIN ER 500 MG TABLET,EXTENDED RELEASE 24 HR - ALBUMIN/CREAT RATIO RND UR 3. Hypertension, essential - ICD9: 401.9, ICD10: I10 - good control - Continue current medication(s) - Recommended regular aerobic exercise. - Recommend home blood pressure monitoring, to bring results in on next visit - Goal of BP <130/80 4. Hypertriglyceridemia - ICD9: 272.1, ICD10: E78.1 - to be determined upon return of lab results - Continue current medication. - LIPID PANEL BASIC 5. Recurrent major depressive disorder, in partial remission (HCC) - ICD9: 296.35, ICD10: F33.41 Stable Joelle Tabor APRN.CNP [facility] Miscellaneous Notes* Telephone Encounter - Belén Phillips LPN - 08/20/2021 9:22 AM EDT rec'd and to POD for appt. * Telephone Encounter - Corbin Schulz Ma - 08/11/2021 2:57 PM EDT Forms not yet received - [place] location - Dr. Graham called to request forms. * Telephone Encounter - Zohra Maria LPN - 08/04/2021 10:39 AM EDT Pt calls to report that he is having right hip surgery on 09/17/21 at [facility]. Pt reports theorthopedics office is going to send a pre-op release form to the office. Pt is scheduled with Joelle Tabor CNP on 09/04/21. Zohra Maria LPN documented in this encounterBarney [facility]03-22-[facility]22 Miscellaneous Notes* Telephone Encounter - Vesta Stallworth MD - 06/23/2021 8:36 PM EDT The following approved medication requests have been transmitted electronically. Signed Prescriptions Disp Refills ALPRAZolam (XANAX) 1 mg tablet 30 tablet 0 Sig: Take 1 tablet by mouth once daily as needed for anxiety for up to 60 days. LINH Class: C-IV ADRIEN: No Authorizing Provider: VESTA STALLWORTH MD * Telephone Encounter - Corbin Schulz Ma - 06/22/2021 1:07 PM EDT SHAYY: 03/13/2021 Last refill: 03/13/2021 QTY: 30 Refills: 0 Patient's request for medication is as follows: Pending Prescriptions Disp Refills ALPRAZOLAM 1 MG TABLET 30 tablet 0 Sig: Take 1 tablet by mouth once daily as needed for anxiety for up to 60 days. LINH Class: C-IV ADRIEN: No Please approve the above prescription(s) to electronically send to pharmacy. Corbin Schulz Ma documented in this encounterBarney [facility]06-10-[facility] History of Present illness Narrative* Alanna Kaba Tech - 09/11/2020 2:00 PM EDT Radiology Service Progress Note PATIENT NAME: Gala Yun DATE OF SERVICE: September 11, 2020 TIME: 2:08 PM PATIENT IDENTITY VERIFICATION COMPLETED USING TWO (2) IDENTIFIERS: Name and Date of confirmedby patient verbally. FALL SCREENING: Has the patient had 2 falls in the last year or 1 fall with injury or currently using an Ambulatory Assistive Device (Walker, Cane, Wheelchair, Crutches, etc.)? No PATIENT GENDER DATA: Male PATIENT RELEVANT IMPLANT DATA REVIEWED: Not Applicable RADIOLOGY DEPARTMENT: General X-ray: Exam(s) Completed: Pelvis X-Ray: Pelvis with Hip Right PERIPHERAL IV DATA: Not applicable SIGNED BY: Hussain Bravo September 11, 2020 2:08 PM documented in this encounterBarney [facility]04-14-[facility] History of Past illness Narrative* Problem Noted Date Resolved Date Atypical chest pain 07/17/2015 09/04/2021 documented as of this encounter (statuses as of 09/04/2021) [facility] of [facility] illness Narrative* Problem Noted Date Resolved Date Atypical chest pain 07/17/2015 09/04/2021 documented as of this encounter (statuses as of 09/18/2021) [facility] illness Narrative* Problem Noted Date Resolved Date Atypical chest pain 07/17/2015 09/04/2021 documented as of this encounter (statuses as of 09/21/2021) [facility] Narrative* Problem Noted Date Resolved Date Atypical chest pain 07/17/2015 09/04/2021 documented as of this encounter (statuses as of 09/22/2021) [address] History of Past illness Narrative* Problem Noted Date Resolved Date Atypical chest pain 07/17/2015 09/04/2021 documented as of this encounter (statuses as of 12/01/2021) [address]2016 History of Past illness Narrative* Problem Noted Date Resolved Date Atypical chest pain 07/17/2015 09/04/2021 documented as of this encounter (statuses as of 12/29/2021) [address] History of Past illness Narrative* Problem Noted Date Resolved Date Atypical chest pain 07/17/2015 09/04/2021 documented as of this encounter (statuses as of 01/27/2022) [address]2016 History of Past illness Narrative* Problem Noted Date Resolved Date Atypical chest pain 07/17/2015 09/04/2021 documented as of this encounter (statuses as of 02/05/2022) [address]2016 History of Past illness Narrative* Problem Noted Date Resolved Date Atypical chest pain 07/17/2015 09/04/2021 documented as of this encounter (statuses as of 04/19/2022) [address]2016 History of Past illness Narrative* Problem Noted Date Resolved Date Atypical chest pain 07/17/2015 09/04/2021 documented as of this encounter (statuses as of 07/09/2022) [address]2016 History of Past illness Narrative* Problem Noted Date Resolved Date Atypical chest pain 07/17/2015 09/04/2021 documented as of this encounter (statuses as of 07/12/2022) [address] History of Past illness Narrative* Problem Noted Date Resolved Date Atypical chest pain 07/17/2015 09/04/2021 documented as of this encounter (statuses as of 09/21/2022) [address]2016 History of Past illness Narrative* Problem Noted Date Diagnosed Date Resolved Date Atypical chest pain 07/17/2015 09/05/19 documented as of this encounter (statuses as of 12/13/2022) [address] History of Past illness Narrative* Problem Noted Date Diagnosed Date Resolved Date Atypical chest pain 07/17/2015 09/05/19 22 documented as of this encounter (statuses as of 12/22/2022) [address] History of Past illness Narrative* Problem Noted Date Diagnosed Date Resolved Date Atypical chest pain 07/17/2015 09/05/19 22 documented as of this encounter (statuses as of 01/26/2023) [address]2016 History of Past illness Narrative* Problem Noted Date Diagnosed Date Resolved Date Atypical chest pain 07/17/2015 09/05/19 22 documented as of this encounter (statuses as of 01/28/2023) [address] History of Past illness Narrative* Problem Noted Date Diagnosed Date Resolved Date Atypical chest pain 07/17/2015 09/05/19 22 documented as of this encounter (statuses as of 02/22/2023) [address] History of Past illness Narrative* Problem Noted Date Diagnosed Date Resolved Date Atypical chest pain 07/17/2015 09/05/19 22 documented as of this encounter (statuses as of 02/23/2023) [address] History of Past illness Narrative* Problem Noted Date Diagnosed Date Resolved Date Atypical chest pain 07/17/2015 09/05/19 22 documented as of this encounter (statuses as of 06/07/2023) [address] History of Past illness Narrative* Problem Noted Date Diagnosed Date Resolved Date Atypical chest pain 07/17/2015 09/05/19 22 documented as of this encounter (statuses as of 06/14/2023) [address] History of Past illness Narrative* Problem Noted Date Diagnosed Date Resolved Date Atypical chest pain 07/17/2015 09/05/19 22 documented as of this encounter (statuses as of 06/16/2023) [address] History of Past illness Narrative* Problem Noted Date Diagnosed Date Resolved Date Atypical chest pain 07/17/2015 09/05/19 22 documented as of this encounter (statuses as of 06/19/2023) [address] History of Past illness Narrative* Problem Noted Date Diagnosed Date Resolved Date Atypical chest pain 07/17/2015 09/05/19 22 documented as of this encounter (statuses as of 06/19/2023) [address]2016 History of Past illness Narrative* Problem Noted Date Diagnosed Date Resolved Date Atypical chest pain 07/17/2015 09/05/19 22 documented as of this encounter (statuses as of 06/21/2023) [place] [address]14-2016 History of Past illness Narrative* Problem Noted Date Diagnosed Date Resolved Date Atypical chest pain 07/17/2015 09/05/19 22 documented as of this encounter (statuses as of 06/22/2023) [facility] noteThere may be information available, but it has not been provided by the sender.[facility] Work Phone: Evaluation note* Diagnosis Panic Panic disorder without agoraphobia documented in this encounter [facility] note* Diagnosis Preop exam for internal medicine- Primary Other specified pre-operative examination Type 2 diabetes mellitus without complication, without long-term current use of insulin (HCC) Hypertension, essential Unspecified essential hypertension Hypertriglyceridemia Pure hyperglyceridemia Recurrent major depressive disorder, in partial remission ([facility]) documented in this encounter [facility] noteNo assessment information availableWOhioHealth [facility] Work Phone: Evaluation note* Diagnosis Acute retention of urine- Primary Other specified retention of urine S/P hip arthroscopy [facility] Diagnosis Acute retention of urine- Primary Other specified retention of urine BPH with urinary obstruction Hypertrophy of prostate with urinary obstruction and other lower urinary tract symptoms (LUTS) [facility]* Diagnosis Panic Panic disorder without agoraphobia [facility]* Diagnosis BPH with urinary obstruction- Primary Hypertrophy of prostate with urinary obstruction and other lower urinary tract symptoms (LUTS) Acute retention of urine Other specified retention of urine [facility]* Diagnosis Panic Panic disorder without agoraphobia [facility]* Diagnosis Type 2 diabetes mellitus without complication, without long-term current use of insulin (HCC)- Primary Hypertension, essential Unspecified essential hypertension Vitamin D deficiency Unspecified vitamin D deficiency Panic Panic disorder without agoraphobia Encounter for immunization Need for other specified prophylactic vaccination against single bacterial disease Hypertriglyceridemia Pure hyperglyceridemia documented in this encounter [facility] note* Diagnosis Hypertension, essential Unspecified essential hypertension [facility]* Diagnosis Preop exam for internal medicine- Primary Other specified pre-operative examination Type 2 diabetes mellitus without complication, without long-term current use of insulin (HCC) Hypertension, essential Unspecified essential hypertension Panic Panic disorder without agoraphobia Benign prostatic hyperplasia, unspecified whether lower urinary tract symptoms present Encounter for immunization Need for other specified prophylactic vaccination against single bacterial disease [facility]* Diagnosis Paroxysmal atrial fibrillation (HCC)- Primary Atrial fibrillation [facility]* Diagnosis Panic Panic disorder without agoraphobia documented in this encounter [facility] note* Diagnosis Hypertension, essential Unspecified essential hypertension [facility]* Diagnosis Encounter for screening for cardiovascular disorders- Primary Screening for other and unspecified cardiovascular conditions [facility]* Diagnosis Primary osteoarthritis of right hip- Primary Primary localized osteoarthrosis, pelvic region and thigh Tear of right acetabular labrum, subsequent encounter Anemia, unspecified type [facility]* Diagnosis Type 2 diabetes mellitus without complication, without long-term current use of insulin (HCC)- Primary Hypertension, essential Unspecified essential hypertension Panic Panic disorder without agoraphobia Vitamin D deficiency Unspecified vitamin D deficiency Hypertriglyceridemia Pure hyperglyceridemia [facility]* Diagnosis Encounter for screening for cardiovascular disorders Screening for other and unspecified cardiovascular conditions documented in this encounter [facility] note* Diagnosis Coronary artery disease involving [place] coronary artery of [place] heart, unspecified whether angina present- Primary [facility]* Diagnosis Panic Panic disorder without agoraphobia [facility] this [facility]* Diagnosis Primary osteoarthritis of right hip- Primary Primary localized osteoarthrosis, pelvic region and thigh Tear of right acetabular labrum, initial encounter documented [facility] this [facility]* Diagnosis Pre-operative examination- Primary Preoperative examination, unspecified Primary osteoarthritis of right hip Primary localized osteoarthrosis, pelvic region and thigh Tear of right acetabular labrum, initial encounter Coronary artery disease involving [place] coronary artery of [place] heart without angina pectoris Hypertension, essential Unspecified essential hypertension Hypertriglyceridemia Pure hyperglyceridemia Type 2 diabetes mellitus without complication, without long-term current use of insulin (HCC) Recurrent major depressive disorder, in partial remission ([facility]) Social phobia Postoperative retention of urine Urinary complications Benign prostatic hyperplasia with lower urinary tract symptoms, symptom details unspecified Elevated bilirubin Jaundice, unspecified, not of History of kidney stones Personal history of urinary calculi Atrial fibrillation, unspecified type ([facility]) Primary osteoarthritis of right hip Primary localized osteoarthrosis, pelvic region and thigh Tear of right acetabular labrum, initial encounter * Assessment & Plan Note - Rosa M Dillard APRN.CNP - 10/12/2023 9:58 AM EDT Associated Problem(s): A-fib ([facility]) Assessment: remote hx post-op went into afib on induction for this 2nd hip scope * Assessment & Plan Note - Rosa M Dillard APRN.CNP - 10/12/2023 9:54 AM EDT Associated Problem(s): History of kidney stones Assessment: hx lithotripsy * Assessment & Plan Note - Rosa M Dillard APRN.CNP - 10/12/2023 9:54 AM EDT Associated Problem(s): Elevated bilirubin Assessment: PCP monitoring, see comment below from PCP's progress notes ?chronic versus intermittent mild elevation sicne childhood--benign condition * Assessment & Plan Note - Rosa M Dillard APRN.CNP - 10/12/2023 9:52 AM EDT Associated Problem(s): Benign prostatic hyperplasia with lower urinary tract symptoms Assessment: controlled on rx * Assessment & Plan Note - Rosa M Dillard APRN.CNP - 10/12/2023 9:51 AM EDT Associated Problem(s): Postoperative retention of urine Assessment: hx the last two surgeries * Assessment & Plan Note - Rosa M Dillard APRN.CNP - 10/12/2023 9:50 AM EDT Associated Problem(s): Social phobia Assessment: rx as needed * Assessment & Plan Note - Rosa M Dillard APRN.CNP - 10/12/2023 9:50 AM EDT Associated Problem(s): Recurrent major depressive disorder, in partial remission (HCC) Assessment: hx, no current tx, stable per pt * Assessment & Plan Note - Rosa M Dillard APRN.CNP - 10/12/2023 9:50 AM EDT Associated Problem(s): Type 2 diabetes mellitus without complication, without long-term current useof insulin (HCC) Assessment: controlled on oral agent Hemoglobin A1C Date Value 06/16/2023 5.8 % 08/14/2021 7.0 07/02/2020 6.1 % * Assessment & Plan Note - Rosa M Dillard APRN.CNP - 10/12/2023 9:50 AM EDT Associated Problem(s): Hypertriglyceridemia Assessment: c/w statin * Assessment & Plan Note - Rosa M Dillard APRN.CNP - 10/12/2023 9:50 AM EDT Associated Problem(s): Hypertension, essential Assessment: controlled on rx Last 14 BP Last 14 Encounter BP Readings: Date: BP: 10/12/2023 140/92 08/25/2023 120/72 06/21/2023 123/78 06/14/2023 136/80 05/18/2023 120/60 01/26/2023 128/88 01/10/2023 126/82 01/10/2023 122/81 12/31/2022 134/82 11/12/2022 104/70 10/29/2022 138/82 03/12/2022 116/72 12/29/2021 116/88 09/22/2021 112/78 * Assessment & Plan Note - Rosa M Dillard APRN.[employer] - 10/12/2023 9:25 AM EDT Associated Problem(s): Coronary artery disease involving [place] coronary artery of [place] heart without angina pectoris Assessment: mild, non-obstructing per CTA recently, following cardilogy, last OV below Dr. Jeff, 08/25/2023 CHIEF COMPLAINT: Patient presents with: CARD Follow Up Annual IMPRESSION / PLAN: Mild coronary artery disease of the proximal LAD and proximal left circumflex distribution (detected by CTA coronaries) Possible PFO (detected by cardiac CT) Supraventricular tachycardia (SVT) Discussed CTA coronaries findings with the patient. There is only mild disease at the proximal LAD and proximal circumflex distribution. He is already taking aspirin 81 mg daily and atorvastatin 20 mg daily. LDL is below 70. Reassured about the PFO which is prevalent and approximately 25-30% in population and no further workup is needed for that at this time. Short runs of SVT on event monitor with no evidence of atrial fibrillation. He does not have symptoms related to the SVT. No treatment needed at this time for that. Counseled for lifestyle and diet modifications. Suggested moderate-intensity aerobic activity for aminimum of 30 minutes, five times per week or vigorous- intensity aerobic activity for a minimum of 20 minutes, three times per week. Counseled to follow DASH and Mediterranean diet. He will continue to follow-up with his primary care physician. Follow Up Instructions Return if symptoms worsen or fail to improve. 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 documented in this encounter [facility] note* Diagnosis 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 documented in this encounter [facility] note* Diagnosis Pre-operative examination- Primary Preoperative examination, unspecified Primary osteoarthritis of right hip Primary localized osteoarthrosis, pelvic region and thigh Tear of right acetabular labrum, initial encounter Coronary artery disease involving [place] coronary artery of [place] heart without angina pectoris Hypertension, essential Unspecified essential hypertension Hypertriglyceridemia Pure hyperglyceridemia Type 2 diabetes mellitus without complication, without long-term current use of insulin (HCC) Recurrent major depressive disorder, in partial remission (HCC) Social phobia Postoperative retention of urine Urinary complications Benign prostatic hyperplasia with lower urinary tract symptoms, symptom details unspecified Elevated bilirubin Jaundice, unspecified, not of History of kidney stones Personal history of urinary calculi Atrial fibrillation, unspecified type (HCC) Status post total hip resurfacing- Primary Hip joint 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 documented in this encounter [facility] note* Diagnosis Pre-operative examination- Primary Preoperative examination, unspecified Primary osteoarthritis of right hip Primary localized osteoarthrosis, pelvic region and thigh Tear of right acetabular labrum, initial encounter Coronary artery disease involving [place] coronary artery of [place] heart without angina pectoris Hypertension, essential Unspecified essential hypertension Hypertriglyceridemia Pure hyperglyceridemia Type 2 diabetes mellitus without complication, without long-term current use of insulin (HCC) Recurrent major depressive disorder, in partial remission (HCC) Social phobia Postoperative retention of urine Urinary complications Benign prostatic hyperplasia with lower urinary tract symptoms, symptom details unspecified Elevated bilirubin Jaundice, unspecified, not of History of kidney stones Personal history of urinary calculi Atrial fibrillation, unspecified type (HCC) Status post total hip resurfacing- Primary Hip joint 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 Acute post-operative pain documented in this encounter [facility] note* Diagnosis Pre-operative examination- Primary Preoperative examination, unspecified Primary osteoarthritis of right hip Primary localized osteoarthrosis, pelvic region and thigh Tear of right acetabular labrum, initial encounter Coronary artery disease involving [place] coronary artery of [place] heart without angina pectoris Hypertension, essential Unspecified essential hypertension Hypertriglyceridemia Pure hyperglyceridemia Type 2 diabetes mellitus without complication, without long-term current use of insulin (HCC) Recurrent major depressive disorder, in partial remission (HCC) Social phobia Postoperative retention of urine Urinary complications Benign prostatic hyperplasia with lower urinary tract symptoms, symptom details unspecified Elevated bilirubin Jaundice, unspecified, not of History of kidney stones Personal history of urinary calculi Atrial fibrillation, unspecified type (HCC) Primary osteoarthritis of right hip Primary localized osteoarthrosis, pelvic region and thigh Tear of right acetabular labrum, initial encounter documented in this encounter [facility] note* Diagnosis Pre-operative examination- Primary Preoperative examination, unspecified Primary osteoarthritis of right hip Primary localized osteoarthrosis, pelvic region and thigh Tear of right acetabular labrum, initial encounter Coronary artery disease involving [place] coronary artery of [place] heart without angina pectoris Hypertension, essential Unspecified essential hypertension Hypertriglyceridemia Pure hyperglyceridemia Type 2 diabetes mellitus without complication, without long-term current use of insulin (HCC) Recurrent major depressive disorder, in partial remission (HCC) Social phobia Postoperative retention of urine Urinary complications Benign prostatic hyperplasia with lower urinary tract symptoms, symptom details unspecified Elevated bilirubin Jaundice, unspecified, not of History of kidney stones Personal history of urinary calculi Atrial fibrillation, unspecified type (HCC) S/P total hip resurfacing- Primary Hip joint 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 documented in this encounter [facility] note* Diagnosis Pre-operative examination- Primary Preoperative examination, unspecified Primary osteoarthritis of right hip Primary localized osteoarthrosis, pelvic region and thigh Tear of right acetabular labrum, initial encounter Coronary artery disease involving [place] coronary artery of [place] heart without angina pectoris Hypertension, essential Unspecified essential hypertension Hypertriglyceridemia Pure hyperglyceridemia Type 2 diabetes mellitus without complication, without long-term current use of insulin (HCC) Recurrent major depressive disorder, in partial remission (HCC) Social phobia Postoperative retention of urine Urinary complications Benign prostatic hyperplasia with lower urinary tract symptoms, symptom details unspecified Elevated bilirubin Jaundice, unspecified, not of History of kidney stones Personal history of urinary calculi Atrial fibrillation, unspecified type (HCC) Benign prostatic hyperplasia, unspecified whether lower urinary tract symptoms present documented in this encounter [facility] note* Diagnosis Pre-operative examination- Primary Preoperative examination, unspecified Primary osteoarthritis of right hip Primary localized osteoarthrosis, pelvic region and thigh Tear of right acetabular labrum, initial encounter Coronary artery disease involving [place] coronary artery of [place] heart without angina pectoris Hypertension, essential Unspecified essential hypertension Hypertriglyceridemia Pure hyperglyceridemia Type 2 diabetes mellitus without complication, without long-term current use of insulin (HCC) Recurrent major depressive disorder, in partial remission (HCC) Social phobia Postoperative retention of urine Urinary complications Benign prostatic hyperplasia with lower urinary tract symptoms, symptom details unspecified Elevated bilirubin Jaundice, unspecified, not of History of kidney stones Personal history of urinary calculi Atrial fibrillation, unspecified type (HCC) 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 documented in this encounter [facility] note* Diagnosis Pre-operative examination- Primary Preoperative examination, unspecified Primary osteoarthritis of right hip Primary localized osteoarthrosis, pelvic region and thigh Tear of right acetabular labrum, initial encounter Coronary artery disease involving [place] coronary artery of [place] heart without angina pectoris Hypertension, essential Unspecified essential hypertension Hypertriglyceridemia Pure hyperglyceridemia Type 2 diabetes mellitus without complication, without long-term current use of insulin (HCC) Recurrent major depressive disorder, in partial remission (HCC) Social phobia Postoperative retention of urine Urinary complications Benign prostatic hyperplasia with lower urinary tract symptoms, symptom details unspecified Elevated bilirubin Jaundice, unspecified, not of History of kidney stones Personal history of urinary calculi Atrial fibrillation, unspecified type (HCC) Impacted cerumen of right ear- Primary Impacted cerumen documented in this encounter [facility] note* Diagnosis Pre-operative examination- Primary Preoperative examination, unspecified Primary osteoarthritis of right hip Primary localized osteoarthrosis, pelvic region and thigh Tear of right acetabular labrum, initial encounter Coronary artery disease involving [place] coronary artery of [place] heart without angina pectoris Hypertension, essential Unspecified essential hypertension Hypertriglyceridemia Pure hyperglyceridemia Type 2 diabetes mellitus without complication, without long-term current use of insulin (HCC) Recurrent major depressive disorder, in partial remission (HCC) Social phobia Postoperative retention of urine Urinary complications Benign prostatic hyperplasia with lower urinary tract symptoms, symptom details unspecified Elevated bilirubin Jaundice, unspecified, not of History of kidney stones Personal history of urinary calculi Atrial fibrillation, unspecified type (HCC) Panic- Primary Panic disorder without agoraphobia Hypertension, essential Unspecified essential hypertension Type 2 diabetes mellitus without complication, without long-term current use of insulin (HCC) Hypertriglyceridemia Pure hyperglyceridemia Vitamin D deficiency Unspecified vitamin D deficiency Neuropathy of foot, unspecified laterality Cervical disc disorder with radiculopathy of cervical region Brachial neuritis or radiculitis nos Gastro-esophageal reflux disease without esophagitis Esophageal reflux [facility] Diagnosis Pain Generalized pain Pre-operative examination- Primary Preoperative examination, unspecified Primary osteoarthritis of right hip Primary localized osteoarthrosis, pelvic region and thigh Tear of right acetabular labrum, initial encounter Coronary artery disease involving [place] coronary artery of [place] heart without angina pectoris Hypertension, essential Unspecified essential hypertension Hypertriglyceridemia Pure hyperglyceridemia Type 2 diabetes mellitus without complication, without long-term current use of insulin (HCC) Recurrent major depressive disorder, in partial remission (HCC) Social phobia Postoperative retention of urine Urinary complications Benign prostatic hyperplasia with lower urinary tract symptoms, symptom details unspecified Elevated bilirubin Jaundice, unspecified, not of History of kidney stones Personal history of urinary calculi Atrial fibrillation, unspecified type (HCC) documented in this encounter [facility] note* Diagnosis Pre-operative examination- Primary Preoperative examination, unspecified Primary osteoarthritis of right hip Primary localized osteoarthrosis, pelvic region and thigh Tear of right acetabular labrum, initial encounter Coronary artery disease involving [place] coronary artery of [place] heart without angina pectoris Hypertension, essential Unspecified essential hypertension Hypertriglyceridemia Pure hyperglyceridemia Type 2 diabetes mellitus without complication, without long-term current use of insulin (HCC) Recurrent major depressive disorder, in partial remission (HCC) Social phobia Postoperative retention of urine Urinary complications Benign prostatic hyperplasia with lower urinary tract symptoms, symptom details unspecified Elevated bilirubin Jaundice, unspecified, not of History of kidney stones Personal history of urinary calculi Atrial fibrillation, unspecified type (HCC) Acute pain of right knee- Primary documented in this encounter [facility] note* Diagnosis Pre-operative examination- Primary Preoperative examination, unspecified Primary osteoarthritis of right hip Primary localized osteoarthrosis, pelvic region and thigh Tear of right acetabular labrum, initial encounter Coronary artery disease involving [place] coronary artery of [place] heart without angina pectoris Hypertension, essential Unspecified essential hypertension Hypertriglyceridemia Pure hyperglyceridemia Type 2 diabetes mellitus without complication, without long-term current use of insulin (HCC) Recurrent major depressive disorder, in partial remission (HCC) Social phobia Postoperative retention of urine Urinary complications Benign prostatic hyperplasia with lower urinary tract symptoms, symptom details unspecified Elevated bilirubin Jaundice, unspecified, not of History of kidney stones Personal history of urinary calculi Atrial fibrillation, unspecified type (HCC) Acute pain of right knee [facility] Diagnosis Pre-operative examination- Primary Preoperative examination, unspecified Primary osteoarthritis of right hip Primary localized osteoarthrosis, pelvic region and thigh Tear of right acetabular labrum, initial encounter Coronary artery disease involving [place] coronary artery of [place] heart without angina pectoris Hypertension, essential Unspecified essential hypertension Hypertriglyceridemia Pure hyperglyceridemia Type 2 diabetes mellitus without complication, without long-term current use of insulin (HCC) Recurrent major depressive disorder, in partial remission (HCC) Social phobia Postoperative retention of urine Urinary complications Benign prostatic hyperplasia with lower urinary tract symptoms, symptom details unspecified Elevated bilirubin Jaundice, unspecified, not of History of kidney stones Personal history of urinary calculi Atrial fibrillation, unspecified type ([facility]) Panic Panic disorder without agoraphobia [facility] Diagnosis Pre-operative examination- Primary Preoperative examination, unspecified Primary osteoarthritis of right hip Primary localized osteoarthrosis, pelvic region and thigh Tear of right acetabular labrum, initial encounter Coronary artery disease involving [place] coronary artery of [place] heart without angina pectoris Hypertension, essential Unspecified essential hypertension Hypertriglyceridemia Pure hyperglyceridemia Type 2 diabetes mellitus without complication, without long-term current use of insulin (HCC) Recurrent major depressive disorder, in partial remission ([facility]) Social phobia Postoperative retention of urine Urinary complications Benign prostatic hyperplasia with lower urinary tract symptoms, symptom details unspecified Elevated bilirubin Jaundice, unspecified, not of History of kidney stones Personal history of urinary calculi Atrial fibrillation, unspecified type ([facility]) 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 documented in this encounter [facility] note* Diagnosis Pre-operative examination- Primary Preoperative examination, unspecified Primary osteoarthritis of right hip Primary localized osteoarthrosis, pelvic region and thigh Tear of right acetabular labrum, initial encounter Coronary artery disease involving [place] coronary artery of [place] heart without angina pectoris Hypertension, essential Unspecified essential hypertension Hypertriglyceridemia Pure hyperglyceridemia Type 2 diabetes mellitus without complication, without long-term current use of insulin (HCC) Recurrent major depressive disorder, in partial remission (HCC) Social phobia Postoperative retention of urine Urinary complications Benign prostatic hyperplasia with lower urinary tract symptoms, symptom details unspecified Elevated bilirubin Jaundice, unspecified, not of History of kidney stones Personal history of urinary calculi Atrial fibrillation, unspecified type (HCC) Status post total hip resurfacing- Primary Hip joint 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 documented in this encounter [facility] note* Diagnosis Pre-operative examination- Primary Preoperative examination, unspecified Primary osteoarthritis of right hip Primary localized osteoarthrosis, pelvic region and thigh Tear of right acetabular labrum, initial encounter Coronary artery disease involving [place] coronary artery of [place] heart without angina pectoris Hypertension, essential Unspecified essential hypertension Hypertriglyceridemia Pure hyperglyceridemia Type 2 diabetes mellitus without complication, without long-term current use of insulin (HCC) Recurrent major depressive disorder, in partial remission (HCC) Social phobia Postoperative retention of urine Urinary complications Benign prostatic hyperplasia with lower urinary tract symptoms, symptom details unspecified Elevated bilirubin Jaundice, unspecified, not of History of kidney stones Personal history of urinary calculi Atrial fibrillation, unspecified type (HCC) Status post total hip resurfacing- Primary Hip joint 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 Chronic pain of right knee documented in this encounter [facility] note* Diagnosis Pre-operative examination- Primary Preoperative examination, unspecified Primary osteoarthritis of right hip Primary localized osteoarthrosis, pelvic region and thigh Tear of right acetabular labrum, initial encounter Coronary artery disease involving [place] coronary artery of [place] heart without angina pectoris Hypertension, essential Unspecified essential hypertension Hypertriglyceridemia Pure hyperglyceridemia Type 2 diabetes mellitus without complication, without long-term current use of insulin (HCC) Recurrent major depressive disorder, in partial remission (HCC) Social phobia Postoperative retention of urine Urinary complications Benign prostatic hyperplasia with lower urinary tract symptoms, symptom details unspecified Elevated bilirubin Jaundice, unspecified, not of History of kidney stones Personal history of urinary calculi Atrial fibrillation, unspecified type ([facility]) Status post total hip resurfacing- Primary Hip joint 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 documented in this encounter [facility] note* Diagnosis Right hip pain- Primary Pain in joint, pelvic region and thigh Tear of right acetabular labrum, initial encounter Primary osteoarthritis of right hip documented in this encounter [facility] note* Diagnosis Tear of right acetabular labrum, initial encounter- Primary Primary osteoarthritis of right hip documented in this encounter [facility] note* Diagnosis Pre-operative examination- Primary Preoperative examination, unspecified Primary osteoarthritis of right hip Primary localized osteoarthrosis, pelvic region and thigh Tear of right acetabular labrum, initial encounter Coronary artery disease involving [place] coronary artery of [place] heart without angina pectoris Hypertension, essential Unspecified essential hypertension Hypertriglyceridemia Pure hyperglyceridemia Type 2 diabetes mellitus without complication, without long-term current use of insulin (HCC) Recurrent major depressive disorder, in partial remission (HCC) Social phobia Postoperative retention of urine Urinary complications Benign prostatic hyperplasia with lower urinary tract symptoms, symptom details unspecified Elevated bilirubin Jaundice, unspecified, not of History of kidney stones Personal history of urinary calculi Atrial fibrillation, unspecified type (HCC) Panic Panic disorder without agoraphobia documented in this encounter [facility] note* Diagnosis Pre-operative examination- Primary Preoperative examination, unspecified Primary osteoarthritis of right hip Primary localized osteoarthrosis, pelvic region and thigh Tear of right acetabular labrum, initial encounter Coronary artery disease involving [place] coronary artery of [place] heart without angina pectoris Hypertension, essential Unspecified essential hypertension Hypertriglyceridemia Pure hyperglyceridemia Type 2 diabetes mellitus without complication, without long-term current use of insulin (HCC) Recurrent major depressive disorder, in partial remission (HCC) Social phobia Postoperative retention of urine Urinary complications Benign prostatic hyperplasia with lower urinary tract symptoms, symptom details unspecified Elevated bilirubin Jaundice, unspecified, not of History of kidney stones Personal history of urinary calculi Atrial fibrillation, unspecified type (HCC) Acute cough- Primary Rib pain on right side Chest pain, unspecified Acute cough Rib pain on right side Chest pain, unspecified documented in this encounter [facility] note* Diagnosis Pre-operative examination- Primary Preoperative examination, unspecified Primary osteoarthritis of right hip Primary localized osteoarthrosis, pelvic region and thigh Tear of right acetabular labrum, initial encounter Coronary artery disease involving [place] coronary artery of [place] heart without angina pectoris Hypertension, essential Unspecified essential hypertension Hypertriglyceridemia Pure hyperglyceridemia Type 2 diabetes mellitus without complication, without long-term current use of insulin (HCC) Recurrent major depressive disorder, in partial remission (HCC) Social phobia Postoperative retention of urine Urinary complications Benign prostatic hyperplasia with lower urinary tract symptoms, symptom details unspecified Elevated bilirubin Jaundice, unspecified, not of History of kidney stones Personal history of urinary calculi Atrial fibrillation, unspecified type (HCC) Acute cough Rib pain on right side Chest pain, unspecified [facility] Diagnosis Pre-operative examination- Primary Preoperative examination, unspecified Primary osteoarthritis of right hip Primary localized osteoarthrosis, pelvic region and thigh Tear of right acetabular labrum, initial encounter Coronary artery disease involving [place] coronary artery of [place] heart without angina pectoris Hypertension, essential Unspecified essential hypertension Hypertriglyceridemia Pure hyperglyceridemia Type 2 diabetes mellitus without complication, without long-term current use of insulin (HCC) Recurrent major depressive disorder, in partial remission (HCC) Social phobia Postoperative retention of urine Urinary complications Benign prostatic hyperplasia with lower urinary tract symptoms, symptom details unspecified Elevated bilirubin Jaundice, unspecified, not of History of kidney stones Personal history of urinary calculi Atrial fibrillation, unspecified type (HCC) Sinobronchitis- Primary Unspecified sinusitis (chronic) documented in this encounter [facility] note* Diagnosis Pre-operative examination- Primary Preoperative examination, unspecified Primary osteoarthritis of right hip Primary localized osteoarthrosis, pelvic region and thigh Tear of right acetabular labrum, initial encounter Coronary artery disease involving [place] coronary artery of [place] heart without angina pectoris Hypertension, essential Unspecified essential hypertension Hypertriglyceridemia Pure hyperglyceridemia Type 2 diabetes mellitus without complication, without long-term current use of insulin (HCC) Recurrent major depressive disorder, in partial remission (HCC) Social phobia Postoperative retention of urine Urinary complications Benign prostatic hyperplasia with lower urinary tract symptoms, symptom details unspecified Elevated bilirubin Jaundice, unspecified, not of History of kidney stones Personal history of urinary calculi Atrial fibrillation, unspecified type (HCC) Panic Panic disorder without agoraphobia documented in this encounter [facility] note* Diagnosis Pre-operative examination- Primary Preoperative examination, unspecified Primary osteoarthritis of right hip Primary localized osteoarthrosis, pelvic region and thigh Tear of right acetabular labrum, initial encounter Coronary artery disease involving [place] coronary artery of [place] heart without angina pectoris Hypertension, essential Unspecified essential hypertension Hypertriglyceridemia Pure hyperglyceridemia Type 2 diabetes mellitus without complication, without long-term current use of insulin (HCC) Recurrent major depressive disorder, in partial remission (HCC) Social phobia Postoperative retention of urine Urinary complications Benign prostatic hyperplasia with lower urinary tract symptoms, symptom details unspecified Elevated bilirubin Jaundice, unspecified, not of History of kidney stones Personal history of urinary calculi Atrial fibrillation, unspecified type (HCC) Irritable bowel syndrome with diarrhea- Primary Irritable bowel syndrome Type 2 diabetes mellitus without complication, without long-term current use of insulin (HCC) Panic 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 Encounter for immunization Need for other specified prophylactic vaccination against single bacterial disease Screening for colon cancer Special screening for malignant neoplasms, colon History of right hip replacement Long-term current use of proton pump inhibitor therapy [facility]* Diagnosis Pre-operative examination- Primary Preoperative examination, unspecified Primary osteoarthritis of right hip Primary localized osteoarthrosis, pelvic region and thigh Tear of right acetabular labrum, initial encounter Coronary artery disease involving [place] coronary artery of [place] heart without angina pectoris Hypertension, essential Unspecified essential hypertension Hypertriglyceridemia Pure hyperglyceridemia Type 2 diabetes mellitus without complication, without long-term current use of insulin (HCC) Recurrent major depressive disorder, in partial remission (HCC) Social phobia Postoperative retention of urine Urinary complications Benign prostatic hyperplasia with lower urinary tract symptoms, symptom details unspecified Elevated bilirubin Jaundice, unspecified, not of History of kidney stones Personal history of urinary calculi Atrial fibrillation, unspecified type ([facility]) Need for vaccination- Primary Need for prophylactic vaccination and inoculation against unspecified single disease documented in this encounter [facility] note* Diagnosis Pre-operative examination- Primary Preoperative examination, unspecified Primary osteoarthritis of right hip Primary localized osteoarthrosis, pelvic region and thigh Tear of right acetabular labrum, initial encounter Coronary artery disease involving [place] coronary artery of [place] heart without angina pectoris Hypertension, essential Unspecified essential hypertension Hypertriglyceridemia Pure hyperglyceridemia Type 2 diabetes mellitus without complication, without long-term current use of insulin (HCC) Recurrent major depressive disorder, in partial remission (HCC) Social phobia Postoperative retention of urine Urinary complications Benign prostatic hyperplasia with lower urinary tract symptoms, symptom details unspecified Elevated bilirubin Jaundice, unspecified, not of History of kidney stones Personal history of urinary calculi Atrial fibrillation, unspecified type ([facility]) Encounter for immunization- Primary Need for other specified prophylactic vaccination against single bacterial disease documented in this encounter [facility] note* Diagnosis Pre-operative examination- Primary Preoperative examination, unspecified Primary osteoarthritis of right hip Primary localized osteoarthrosis, pelvic region and thigh Tear of right acetabular labrum, initial encounter Coronary artery disease involving [place] coronary artery of [place] heart without angina pectoris Hypertension, essential Unspecified essential hypertension Hypertriglyceridemia Pure hyperglyceridemia Type 2 diabetes mellitus without complication, without long-term current use of insulin (HCC) Recurrent major depressive disorder, in partial remission Social phobia Postoperative retention of urine Urinary complications Benign prostatic hyperplasia with lower urinary tract symptoms, symptom details unspecified Elevated bilirubin Jaundice, unspecified, not of History of kidney stones Personal history of urinary calculi Atrial fibrillation, unspecified type (HCC) Encounter for screening for malignant neoplasm of colon- Primary Special screening for malignant neoplasms, colon Screening for colon cancer Special screening for malignant neoplasms, colon [facility] Diagnosis Pre-operative examination- Primary Preoperative examination, unspecified Primary osteoarthritis of right hip Primary localized osteoarthrosis, pelvic region and thigh Tear of right acetabular labrum, initial encounter Coronary artery disease involving [place] coronary artery of [place] heart without angina pectoris Hypertension, essential Unspecified essential hypertension Hypertriglyceridemia Pure hyperglyceridemia Type 2 diabetes mellitus without complication, without long-term current use of insulin (HCC) Recurrent major depressive disorder, in partial remission Social phobia Postoperative retention of urine Urinary complications Benign prostatic hyperplasia with lower urinary tract symptoms, symptom details unspecified Elevated bilirubin Jaundice, unspecified, not of History of kidney stones Personal history of urinary calculi Atrial fibrillation, unspecified type ([facility]) Screening due documented in this encounter [facility] [place] [facility]* Diagnosis Pre-operative examination- Primary Preoperative examination, unspecified Primary osteoarthritis of right hip Primary localized osteoarthrosis, pelvic region and thigh Tear of right acetabular labrum, initial encounter Coronary artery disease involving [place] coronary artery of [place] heart without angina pectoris Hypertension, essential Unspecified essential hypertension Hypertriglyceridemia Pure hyperglyceridemia Type 2 diabetes mellitus without complication, without long-term current use of insulin (HCC) Recurrent major depressive disorder, in partial remission Social phobia Postoperative retention of urine Urinary complications Benign prostatic hyperplasia with lower urinary tract symptoms, symptom details unspecified Elevated bilirubin Jaundice, unspecified, not of History of kidney stones Personal history of urinary calculi Atrial fibrillation, unspecified type ([facility]) Encounter for immunization- Primary Need for other specified prophylactic vaccination against single bacterial disease documented in this encounter [facility] CenterInstructionsNo information available.[facility] Work Phone: Reason for referral (narrative)* Outpatient Procedure (Routine) - Authorized Specialty Diagnoses / Procedures Referred By Contac t Referred To [facility] Diagnoses Atrial fibrillation, unspecified type (HCC) Procedures ECHO ECHO TTHRC R-T 2D W/WOM-MODE COMPL SPEC&COLR D Jasmina Rincon MD [address] [phone] [place] [phone] Referral ID Status Reason Start Date Expiration Date Visits Requested Visits Authorized [id number] Authorized Auto-Generat ed Referral 3 01/26/2024 1 1 * Outpatient Procedure (Routine) - Pending Review Specialty Diagnoses / Procedures Referred By Contac t Referred To Contact [facility] [place] Diagnoses Atrial fibrillation, unspecified type (HCC) Procedures ECG COMPLETE ECG ROUTINE ECG W/LEAST 12 LDS W/I&R Jasmina Rincon MD [address] [place] [address] [place] [phone] Referral ID Status Reason Start Date Expiration Date Visits Requested Visits Authorized [id number] Pending Review Auto-Generat ed Referral 3 01/26/2024 1 1 [facility] for referral (narrative)* Diagnostic Procedure Only (Routine) - Pending Review Specialty Diagnoses / Procedures Referred By Contac t Referred To Contact XR IMAGING Diagnoses Primary osteoarthritis of right hip Procedures XR HIP 2V AP/LAT RIGHT (AK,FL,ME,UN) RADEX HIP UNILATERAL WITH PELVIS 2-3 VIEWS Heather Diego PA-C [address] [address] Xr Imaging [id number] Referral ID Status Reason Start Date Expiration Date Visits Requested Visits Authorized [id number] Pending Review Auto-Generat ed Referral 06/14/2023 07/13/2024 1 1 * Diagnostic Procedure Only (Routine) - Pending Review Specialty Diagnoses / Procedures Referred By Contac t Referred To Contact XR IMAGING Diagnoses Primary osteoarthritis of right hip Procedures XR HIP GENERAL 3V PELV/AP/LAT RIGHT RADEX HIP UNILATERAL WITH PELVIS 2-3 VIEWS Heather Diego PA-C [address] [phone] Xr Imaging [id number] Referral ID Status Reason Start Date Expiration Date Visits Requested Visits Authorized [id number] Pending Review Auto-Generat ed Referral 06/14/2023 07/13/2024 1 1 [facility] for referral (narrative)* Diagnostic Procedure Only (Routine) - Closed Specialty Diagnoses / Procedures Referred By Ruth olson Referred To Contact XR IMAGING Diagnoses Primary osteoarthritis of right hip Tear of right acetabular labrum, initial encounter Procedures XR HIP GENERAL 3V PELV/AP/LAT RIGHT RADEX HIP UNILATERAL WITH PELVIS 2-3 VIEWS Holland Mo MD [address] [phone] Xr Imaging [id number] Referral ID Status Reason Start Date Expiration Date V isits Requested Visits Authorized [id number] Closed Auto-Generate d Referral 09/15/2023 10/14/2024 1 1 [facility] for referral (narrative)* Diagnostic Procedure Only (Routine) - Authorized Specialty Diagnoses / Procedures Referred By Ruth olson Referred To Contact XR IMAGING Diagnoses Acute pain of right knee Procedures XR KNEE GENERAL 4V AP BOTH/PA BOTH/LAT/MERC RIGHT RADIOLOGIC EXAM KNEE COMPLETE 4/MORE VIEWS Holland Mo MD [address] [phone] Xr Imaging [id number] Referral ID Status Reason Start Date Expiration Date Visits Requested Visits Authorized [id number] Authorized Auto-Generat ed Referral 01/10/2024 02/08/2025 1 1 [facility] for referral (narrative)* Diagnostic Procedure Only (Routine) - Closed Specialty Diagnoses / Procedures Referred By Contac t Referred To Contact XR IMAGING Diagnoses Acute pain of right knee Procedures XR KNEE GENERAL 4V AP BOTH/PA BOTH/LAT/MERC RIGHT RADIOLOGIC EXAM KNEE COMPLETE 4/MORE VIEWS Holland Mo MD [address] [phone] [place] [address] Referral ID Status Reason Start Date Expiration Date V isits Requested Visits Authorized [id number] Closed Auto-Generate d Referral 01/10/2024 02/08/2025 1 1 [facility] for referral (narrative)* Diagnostic Procedure Only (Routine) - New Request Specialty Diagnoses / Procedures Referred By Contac t Referred To Contact XR IMAGING Diagnoses Status post total hip resurfacing Procedures XR HIP GENERAL 3V PELV/AP/LAT RIGHT RADEX HIP UNILATERAL WITH PELVIS 2-3 VIEWS Holland Mo MD [address] [phone] Xr Imaging [id number] Referral ID Status Reason Start Date Expiration Date Visits Requested Visits Authorized [id number] New Request Auto-Generat ed Referral 5 03/18/2025 1 1 * Diagnostic Procedure Only (Routine) - Authorized Specialty Diagnoses / Procedures Referred By Contac t Referred To Contact XR IMAGING Diagnoses Status post total hip resurfacing Procedures XR HIP GENERAL 3V PELV/AP/LAT RIGHT RADEX HIP UNILATERAL WITH PELVIS 2-3 VIEWS Holland Mo MD [address] [phone] [place] [address] Referral ID Status Reason Start Date Expiration Date Visits Requested Visits Authorized [id number] Authorized Auto-Generat ed Referral 4 03/18/2025 1 1 [facility] for referral (narrative)* Diagnostic Procedure Only (Routine) - New Request Specialty Diagnoses / Procedures Referred By Ruth olson Referred To Contact XR IMAGING Diagnoses Status post total hip resurfacing Procedures XR HIP GENERAL 3V PELV/AP/LAT RIGHT RADEX HIP UNILATERAL WITH PELVIS 2-3 VIEWS Holland Mo MD [address] [place] [address] [place] [address] Referral ID Status Reason Start Date Expiration Date Visits Requested Visits Authorized [id number] New Request Auto-Generat ed Referral 03/18/2025 1 1 [facility] for referral (narrative)No reason for referral information availablePioneer Winning Pitch Services Work Phone: [facility] Narrative* Diagnostic Procedure Only (Routine) - Closed Specialty Diagnoses / Procedures Referred By Ruth olson Referred To Contact XR IMAGING Diagnoses Primary osteoarthritis of right hip Procedures XR HIP GENERAL 3V PELV/AP/LAT RIGHT RADEX HIP UNILATERAL WITH PELVIS 2-3 VIEWS Heather Diego PA-C [address] [address] [place] [address] Referral ID Status Reason Start Date Expiration Date V isits Requested Visits Authorized [id number] Closed Auto-Generate d Referral 06/14/2023 07/13/2024 1 1 [facility] for visit Narrative* Diagnostic Procedure Only (Routine) - Closed Specialty Diagnoses / Procedures Referred By Ruth olson Referred To Contact XR IMAGING Diagnoses Primary osteoarthritis of right hip Tear of right acetabular labrum, initial encounter Procedures XR HIP GENERAL 3V PELV/AP/LAT RIGHT RADEX HIP UNILATERAL WITH PELVIS 2-3 VIEWS Holland Mo MD [address] [place] [address] [place] [address] Referral ID Status Reason Start Date Expiration Date V isits Requested Visits Authorized [id number] Closed Auto-Generate d Referral 09/15/2023 10/14/2024 1 1 [facility] Outpatient Procedure (Routine) - Closed Specialty Diagnoses / Procedures Referred By Contac t Referred To Contact [facility] Diagnoses Screening for colon cancer Procedures COLONOSCOPY SCREENING COLONOSCOPY FLX DX W/COLLJ SPEC WHEN Vesta Farris MD [address] [place] [address] Phone: tel: fax: [facility] [address] [place] [address] Referral ID Status Reason Start Date Expiration Date V isits Requested Visits Authorized [id number] Closed Auto-Generate d Referral 06/05/2024 06/05/2025 1 1 [facility] Narrative* Outpatient Procedure (Routine) - Closed Specialty Diagnoses / Procedures Referred By Ruth olson Referred To Contact [facility] Diagnoses Screening due Procedures COLONOSCOPY SCREENING COLONOSCOPY FLX DX W/COLLJ SPEC WHEN Allie Rizvi, DO [address] [place] [address] Phone: tel: fax: [facility] [address] [place] [address] Referral ID Status Reason Start Date Expiration Date V isits Requested Visits Authorized [id number] Closed Auto-Generate d Referral 07/05/2024 07/05/2025 1 1 [facility] Summary Purpose Family History No Family History Records FoundThere may be information available, but it has not been provided by the sender.No Family History Records FoundNo Family History Records FoundNo Family History Records FoundNo Family History Records FoundNo Family History Records Found Advance Directives No Advanced Directives Records FoundDocuments on File Type Date 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 Advance Directive(s) 02/05/2021 9:27 AM Advance Directive(s) 11/27/2020 9:32 AM Advance Directive(s) 09/04/2020 9:32 AM Advance Directive(s) 07/31/2020 9:50 AM Advance Directive(s) 05/16/2020 12:58 PM Advance Directive(s) 07/26/2018 11:55 AM Advance Directive Response Recorded Date/ Time Advance Directives No September 17 7:34pm Living Will No September 17, 2021 8:01pm Power of Clin Application Specialist No September 17 8:01pm Documents on File 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 Date 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 Advance Directive(s) 02/05/2021 9:27 AM Advance Directive(s) 11/27/2020 9:32 AM Advance Directive(s) 09/04/2020 9:32 AM Advance Directive(s) 07/31/2020 9:50 AM Advance Directive(s) 05/16/2020 12:58 PM Advance Directive(s) 07/26/2018 11:55 AM Documents on File 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 No September 17, 2021 8:01pm Advance Directives No September 17 7:34pm Chief Complaint Chief Complaint Description Start Date right hip pain Preliminary chief co mplaint data, not yet signed by the author as of Chief Complaint and Reason for Visit Chief Complaint Chief Complaint LABRAL TEAR PT HAS R X Chief Complaint Admit Date Consult August 16, 2024 8:44a m Reason for Referral Specialty Diagnoses / Procedures Referred By Ruth olson Referred To Contact Urology Diagnoses Acute retention of urine Procedures CONSULT TO UROLOGY OFFICE/OUTPATIENT NEW HIGH MDM 60-74 MINUTES Jorge Gaona MD [address] [place] [address] Referral ID Status Reason Start Date Expiration Date Visits Requested Visits Authorized [id number] Pending Review PCP Requested Referral 09/21/2021 09/18/2022 1 1 Specialty Diagnoses / Procedures Referred By Ruth olson Referred To Contact CT IMAGING Diagnoses Encounter for screening for cardiovascular disorders Procedures CTA CORONARY W IVCON CTA HRT CORNRY ART/BYPASS GRFTS CONTRST [place] [address] [place] [address] [place] [address] Referral ID Status Reason Start Date Expiration Date Visits Requested Visits Authorized [id number] Pending Review Auto-Generat ed Referral 06/06/2023 07/05/2024 1 1 Referral ID Status Reason Start Date Expiration Date V isits Requested Visits Authorized [id number] Closed Auto-Generate d Referral 06/07/2023 07/21/2023 1 1 Specialty Diagnoses / Procedures Referred By Contac t Referred To Contact Diagnoses Primary osteoarthritis of right hip Tear of right acetabular labrum, initial encounter Procedures REFER TO PAC / [facility] - PREOPERATIVE OPTIMIZATION OFFICE/OUTPATIENT NEW HIGH MDM 60 MINUTES Holland Mo MD [address] [place] [phone] Referral ID Status Reason Start Date Expiration Date Visits Requested Visits Authorized [id number] Authorized PCP Requested Referral 09/15/2023 09/14/2024 1 1 Specialty Diagnoses / Procedures Referred By Contac t Referred To Contact XR IMAGING Diagnoses Primary osteoarthritis of right hip Tear of right acetabular labrum, initial encounter Procedures XR HIP GENERAL 3V PELV/AP/LAT RIGHT RADEX HIP UNILATERAL WITH PELVIS 2-3 VIEWS Holland Mo MD [address] [place] [phone] Xr Imaging [place] [address] Referral ID Status Reason Start Date Expiration Date Visits Requested Visits Authorized [id number] Pending Review Auto-Generat ed Referral 09/15/2023 10/14/2024 1 1 Specialty Diagnoses / Procedures Referred By Contac t Referred To Contact [facility] Diagnoses Primary osteoarthritis of right hip Tear of right acetabular labrum, initial encounter Procedures ECG COMPLETE ECG ROUTINE ECG W/LEAST 12 LDS W/I&R Holland Mo MD [address] [place] [address] [facility] [place] [address] [place], [place] [address] [place] [address] Referral ID Status Reason Start Date Expiration Date Visits Requested Visits Authorized [id number] Pending Review Auto-Generat ed Referral 09/15/2023 09/14/2024 1 1 Specialty Diagnoses / Procedures Referred By Contac t Referred To Contact [facility] Diagnoses Status post total hip resurfacing Procedures CONSULT TO PHYSICAL THERAPY PHYSICAL THERAPY EVALUATION HIGH COMPLEX 45 MINS Holland Mo MD [address] [place] [address] [facility] [place] [address] [place] [address] Referral ID Status Reason Start Date Expiration Date Visits Requested Visits Authorized [id number] Pending Review Auto-Generat ed Referral 12/01/2023 11/30/2024 1 1 Additional Source Comments (unrecognized sect ion and content) No Status Records FoundNo Status Records FoundNo Status Records FoundNo Status Records FoundNo Status Records FoundNo Status Records Found INFORMATION SOURCE (unrecogn ized section and content) DATE CREATED AUTHOR 02/07/2021 [facility] DATE CREATED AUTHOR AUTHOR'S ORGANIZ ATION 05/12/2022 [facility] DATE CREATED AUTHOR AUTHOR'S ORGANIZ ATION 06/15/2023 [facility] DATE CREATED AUTHOR AUTHOR'S ORGANIZ ATION 07/08/2024 [facility] DATE CREATED AUTHOR AUTHOR'S ORGANIZ ATION 08/08/2024 [facility] DATE CREATED AUTHOR AUTHOR'S ORGANIZ ATION 09/03/2024 [facility] Reason for Visit (unrecogniz ed section and content) Reason Comments Follow Up Specialty Diagnoses / Procedures Referred By Ruth olson Referred To Contact Urology / UROLOGY Diagnoses Acute retention of urine Procedures CONSULT TO UROLOGY OFFICE/OUTPATIENT [facility] 60-74 MINUTES Jorge Gaona MD [address] [place] [address] [facility] [address] [place] [address] Referral ID Status Reason Start Date Expiration Date V isits Requested Visits Authorized [id number] Closed PCP Requested Referral 09/21/2021 09/18/2022 1 1 Reason For Visit Description Start Date Test Result Preliminary reason f or visit data, not yet signed by the author as of right hip pain Reason Onset Date Comments Refill Request 06/21/2021 Reason Comments pre-op clearance Reason Comments Pre-Op Exam Reason Comments ER F/U Reason Comments Urology/avendano Specialty Diagnoses / Procedures Referred By Contac t Referred To Contact Urology Diagnoses Acute retention of urine Procedures CONSULT TO UROLOGY OFFICE/OUTPATIENT [facility] 60-74 MINUTES Jorge Gaona MD [address] [place] [address] Referral ID Status Reason Start Date Expiration Date Visits Requested Visits Authorized [id number] Pending Review PCP Requested Referral 09/21/2021 09/18/2022 1 1 Reason Onset Date Comments Refill Request 11/30/2021 Reason Onset Date Comments Refill Request 01/25/2022 Reason Comments Faxed to [facility] Reason Comments Results Reason Comments F/U 6 months Reason Onset Date Comments Refill Request 07/08/2022 Reason Onset Date Comments Refill Request 07/11/2022 Reason Onset Date Comments Refill Request 09/18/2022 Reason Comments F/U 6 months Labs prior Reason Comments Forms Reason Comments Consult Specialty Diagnoses / Procedures Referred By Contac t Referred To Contact Cardiology Diagnoses Atrial fibrillation, unspecified type (HCC) Procedures CONSULT TO CARDIOLOGY OFFICE/OUTPATIENT [facility] 60-74 MINUTES Tiara Ball APRN.CNS [address] [place] [address] Referral ID Status Reason Start Date Expiration Date Visits Requested Visits Authorized [id number] Pending Review PCP Requested Referral 12/23/2022 12/23/2023 1 1 Reason Onset Date Comments Refill Request 02/18/2023 Reason Comments Rx refill issue; discontinued med Reason Comments New Reason Comments surgery planning Reason Comments Blood Management Reason Comments 6 month f/up Reason Comments Imaging Disc Reason Comments Radiology CTA Specialty Diagnoses / Procedures Referred By Contac t Referred To Contact CT IMAGING Diagnoses Encounter for screening for cardiovascular disorders Procedures CTA CORONARY W IVCON CTA HRT CORNRY ART/BYPASS GRFTS CONTRST [place] [address] [place] [address] [place] [address] Referral ID Status Reason Start Date Expiration Date V isits Requested Visits Authorized [id number] Closed Auto-Generate d Referral 06/07/2023 07/21/2023 1 1 Reason Comments CARD Follow Up Annual Reason Onset Date Comments Refill Request 09/07/2023 Reason Comments Schedule Surgery Surgery 10/20/23 Reason Comments Consult Specialty Diagnoses / Procedures Referred By Contac t Referred To Contact Diagnoses Primary osteoarthritis of right hip Tear of right acetabular labrum, initial encounter Procedures REFER TO PACC / [facility] PREOPERATIVE OPTIMIZATION OFFICE/OUTPATIENT [facility] MDM 60 MINUTES Holland Mo MD [address] [facility] [place] [address] Referral ID Status Reason Start Date Expiration Date V isits Requested Visits Authorized [id number] Closed PCP Requested Referral 09/15/2023 09/14/2024 1 1 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 Date Comments Refill Request 10/25/2023 Reason Comments Patient Question Reason Onset Date Comments Refill Request 11/04/2023 Reason Comments Patient Update Reason Onset Date Comments Refill Request 11/17/2023 Reason Onset Date Comments Refill Request 12/01/2023 Reason Comments Post Op Pain Reason Onset Date Comments Refill Request 12/12/2023 Reason Comments Refill Request Reason Comments Ear Problem clogged x 1 day Reason Comments Radio Gen RMP Specialty Diagnoses / Procedures Referred By Contac t Referred To Contact [facility] Diagnoses Chronic right hip pain [M25.551, G89.29] Procedures Chronic right hip pain [M25.551, G89.29] Tiara aBll, FRESH WORK INSPECTOR.[facility] [address] [place] [address] [facility] [address] [place] [address] Referral ID Status Reason Start Date Expiration Date V isits Requested Visits Authorized [id number] Closed OON/Self Pay Override 08/14/2020 10/13/2020 1 1 Reason Comments Right Hip Pain Reason Comments Radio Gen A21 Specialty Diagnoses / Procedures Referred By Contac t Referred To Contact XR IMAGING Diagnoses Acute pain of right knee Procedures XR KNEE GENERAL 4V AP BOTH/PA BOTH/LAT/MERC RIGHT RADIOLOGIC EXAM KNEE COMPLETE 4/MORE VIEWS Holland Mo MD [address] [place] [address] Xr Imaging [place] [address] Referral ID Status Reason Start Date Expiration Date V isits Requested Visits Authorized [id number] Closed Auto-Generate d Referral 01/10/2024 02/08/2025 1 1 Reason Onset Date Comments Refill Request 01/18/2024 Reason Comments Established Patient Follow Up Pain Reason Comments Orders Reason Onset Date Comments Appointment Request 04/20/2022 Reason Comments New Patient Hip Pain right Reason Onset Date Comments PRP Paid 04/29/2022 Reason Comments Hip Pain Reason Onset Date Comments Refill Request 03/26/2024 Reason Comments Chest Congestion cough, headache and bodyaches x 5 days, rib cage pain x 3 days Reason Comments Cough Chest congestion x 1 .5 weeks Reason Onset Date Comments Refill Request 05/21/2024 Reason Onset Date Comments Refill Request 05/27/2024 Reason Comments F/U 6 months Reason Comments Orders Reason Comments Imm/Inj Source Comments (unrecognize d section and content) In the event this informatio n is protected by the Federal Confidentiality of Alcohol and Drug Abuse Patient Records regulations: The Federal rules restrict any use of the information to criminally investigate or prosecute any alcohol or drug abuse patient.[facility] Center[facility] the event this information is protected by the Federal Confidentiality of Alcohol and Drug Abuse Patient Records regulations: The Federal rules restrict any use of the information to criminally investigate or prosecute any alcohol or drug abuse patient.[facility] CenterIn the event this information is protected by the Federal Confidentiality of Alcohol and Drug Abuse Patient Records regulations: The Federal rules restrict any use of the information to criminally investigate or prosecute any alcohol or drug abuse patient.[facility] CenterIn the event this information is protected by the Federal Confidentiality of Alcohol and Drug Abuse Patient Records regulations: The Federal rules restrict any use of the information to criminally investigate or prosecute any alcohol or drug abuse patient.[facility] CenterIn the event this information is protected by the Federal Confidentiality of Alcohol and Drug Abuse Patient Records regulations: The Federal rules restrict any use of the information to criminally investigate or prosecute any alcohol or drug abuse patient.[facility] CenterIn the event this information is protected by the Federal Confidentiality of Alcohol and Drug Abuse Patient Records regulations: The Federal rules restrict any use of the information to criminally investigate or prosecute any alcohol or drug abuse patient.[facility] CenterIn the event this information is protected by the Federal Confidentiality of Alcohol and Drug Abuse Patient Records regulations: The Federal rules restrict any use of the information to criminally investigate or prosecute any alcohol or drug abuse patient.[facility] CenterIn the event this information is protected by the Federal Confidentiality of Alcohol and Drug Abuse Patient Records regulations: The Federal rules restrict any use of the information to criminally investigate or prosecute any alcohol or drug abuse patient.[facility] CenterIn the event this information is protected by the Federal Confidentiality of Alcohol and Drug Abuse Patient Records regulations: The Federal rules restrict any use of the information to criminally investigate or prosecute any alcohol or drug abuse patient.[facility] CenterIn the event this information is protected by the Federal Confidentiality of Alcohol and Drug Abuse Patient Records regulations: The Federal rules restrict any use of the information to criminally investigate or prosecute any alcohol or drug abuse patient.[facility] CenterIn the event this information is protected by the Federal Confidentiality of Alcohol and Drug Abuse Patient Records regulations: The Federal rules restrict any use of the information to criminally investigate or prosecute any alcohol or drug abuse patient.[facility] CenterIn the event this information is protected by the Federal Confidentiality of Alcohol and Drug Abuse Patient Records regulations: The Federal rules restrict any use of the information to criminally investigate or prosecute any alcohol or drug abuse patient.[facility] CenterIn the event this information is protected by the Federal Confidentiality of Alcohol and Drug Abuse Patient Records regulations: The Federal rules restrict any use of the information to criminally investigate or prosecute any alcohol or drug abuse patient.[facility] CenterIn the event this information is protected by the Federal Confidentiality of Alcohol and Drug Abuse Patient Records regulations: The Federal rules restrict any use of the information to criminally investigate or prosecute any alcohol or drug abuse patient.[facility] CenterIn the event this information is protected by the Federal Confidentiality of Alcohol and Drug Abuse Patient Records regulations: The Federal rules restrict any use of the information to criminally investigate or prosecute any alcohol or drug abuse patient.[facility] CenterIn the event this information is protected by the Federal Confidentiality of Alcohol and Drug Abuse Patient Records regulations: The Federal rules restrict any use of the information to criminally investigate or prosecute any alcohol or drug abuse patient.[facility] CenterIn the event this information is protected by the Federal Confidentiality of Alcohol and Drug Abuse Patient Records regulations: The Federal rules restrict any use of the information to criminally investigate or prosecute any alcohol or drug abuse patient.[facility] CenterIn the event this information is protected by the Federal Confidentiality of Alcohol and Drug Abuse Patient Records regulations: The Federal rules restrict any use of the information to criminally investigate or prosecute any alcohol or drug abuse patient.[facility] CenterIn the event this information is protected by the Federal Confidentiality of Alcohol and Drug Abuse Patient Records regulations: The Federal rules restrict any use of the information to criminally investigate or prosecute any alcohol or drug abuse patient.[facility] CenterIn the event this information is protected by the Federal Confidentiality of Alcohol and Drug Abuse Patient Records regulations: The Federal rules restrict any use of the information to criminally investigate or prosecute any alcohol or drug abuse patient.[facility] CenterIn the event this information is protected by the Federal Confidentiality of Alcohol and Drug Abuse Patient Records regulations: The Federal rules restrict any use of the information to criminally investigate or prosecute any alcohol or drug abuse patient.[facility] CenterIn the event this information is protected by the Federal Confidentiality of Alcohol and Drug Abuse Patient Records regulations: The Federal rules restrict any use of the information to criminally investigate or prosecute any alcohol or drug abuse patient.[facility] CenterIn the event this information is protected by the Federal Confidentiality of Alcohol and Drug Abuse Patient Records regulations: The Federal rules restrict any use of the information to criminally investigate or prosecute any alcohol or drug abuse patient.[facility] CenterIn the event this information is protected by the Federal Confidentiality of Alcohol and Drug Abuse Patient Records regulations: The Federal rules restrict any use of the information to criminally investigate or prosecute any alcohol or drug abuse patient.[facility] CenterIn the event this information is protected by the Federal Confidentiality of Alcohol and Drug Abuse Patient Records regulations: The Federal rules restrict any use of the information to criminally investigate or prosecute any alcohol or drug abuse patient.[facility] CenterIn the event this information is protected by the Federal Confidentiality of Alcohol and Drug Abuse Patient Records regulations: The Federal rules restrict any use of the information to criminally investigate or prosecute any alcohol or drug abuse patient.[facility] CenterIn the event this information is protected by the Federal Confidentiality of Alcohol and Drug Abuse Patient Records regulations: The Federal rules restrict any use of the information to criminally investigate or prosecute any alcohol or drug abuse patient.[facility] CenterIn the event this information is protected by the Federal Confidentiality of Alcohol and Drug Abuse Patient Records regulations: The Federal rules restrict any use of the information to criminally investigate or prosecute any alcohol or drug abuse patient.[facility] CenterIn the event this information is protected by the Federal Confidentiality of Alcohol and Drug Abuse Patient Records regulations: The Federal rules restrict any use of the information to criminally investigate or prosecute any alcohol or drug abuse patient.[facility] CenterIn the event this information is protected by the Federal Confidentiality of Alcohol and Drug Abuse Patient Records regulations: The Federal rules restrict any use of the information to criminally investigate or prosecute any alcohol or drug abuse patient.[facility] CenterIn the event this information is protected by the Federal Confidentiality of Alcohol and Drug Abuse Patient Records regulations: The Federal rules restrict any use of the information to criminally investigate or prosecute any alcohol or drug abuse patient.[facility] CenterIn the event this information is protected by the Federal Confidentiality of Alcohol and Drug Abuse Patient Records regulations: The Federal rules restrict any use of the information to criminally investigate or prosecute any alcohol or drug abuse patient.[facility] CenterIn the event this information is protected by the Federal Confidentiality of Alcohol and Drug Abuse Patient Records regulations: The Federal rules restrict any use of the information to criminally investigate or prosecute any alcohol or drug abuse patient.[facility] CenterIn the event this information is protected by the Federal Confidentiality of Alcohol and Drug Abuse Patient Records regulations: The Federal rules restrict any use of the information to criminally investigate or prosecute any alcohol or drug abuse patient.[facility] CenterIn the event this information is protected by the Federal Confidentiality of Alcohol and Drug Abuse Patient Records regulations: The Federal rules restrict any use of the information to criminally investigate or prosecute any alcohol or drug abuse patient.[facility] CenterIn the event this information is protected by the Federal Confidentiality of Alcohol and Drug Abuse Patient Records regulations: The Federal rules restrict any use of the information to criminally investigate or prosecute any alcohol or drug abuse patient.[facility] CenterIn the event this information is protected by the Federal Confidentiality of Alcohol and Drug Abuse Patient Records regulations: The Federal rules restrict any use of the information to criminally investigate or prosecute any alcohol or drug abuse patient.[facility] CenterIn the event this information is protected by the Federal Confidentiality of Alcohol and Drug Abuse Patient Records regulations: The Federal rules restrict any use of the information to criminally investigate or prosecute any alcohol or drug abuse patient.[facility] CenterIn the event this information is protected by the Federal Confidentiality of Alcohol and Drug Abuse Patient Records regulations: The Federal rules restrict any use of the information to criminally investigate or prosecute any alcohol or drug abuse patient.[facility] CenterIn the event this information is protected by the Federal Confidentiality of Alcohol and Drug Abuse Patient Records regulations: The Federal rules restrict any use of the information to criminally investigate or prosecute any alcohol or drug abuse patient.[facility] CenterIn the event this information is protected by the Federal Confidentiality of Alcohol and Drug Abuse Patient Records regulations: The Federal rules restrict any use of the information to criminally investigate or prosecute any alcohol or drug abuse patient.[facility] CenterIn the event this information is protected by the Federal Confidentiality of Alcohol and Drug Abuse Patient Records regulations: The Federal rules restrict any use of the information to criminally investigate or prosecute any alcohol or drug abuse patient.[facility] CenterIn the event this information is protected by the Federal Confidentiality of Alcohol and Drug Abuse Patient Records regulations: The Federal rules restrict any use of the information to criminally investigate or prosecute any alcohol or drug abuse patient.[facility] CenterIn the event this information is protected by the Federal Confidentiality of Alcohol and Drug Abuse Patient Records regulations: The Federal rules restrict any use of the information to criminally investigate or prosecute any alcohol or drug abuse patient.[facility] CenterIn the event this information is protected by the Federal Confidentiality of Alcohol and Drug Abuse Patient Records regulations: The Federal rules restrict any use of the information to criminally investigate or prosecute any alcohol or drug abuse patient.[facility] CenterIn the event this information is protected by the Federal Confidentiality of Alcohol and Drug Abuse Patient Records regulations: The Federal rules restrict any use of the information to criminally investigate or prosecute any alcohol or drug abuse patient.[facility] CenterIn the event this information is protected by the Federal Confidentiality of Alcohol and Drug Abuse Patient Records regulations: The Federal rules restrict any use of the information to criminally investigate or prosecute any alcohol or drug abuse patient.[facility] CenterIn the event this information is protected by the Federal Confidentiality of Alcohol and Drug Abuse Patient Records regulations: The Federal rules restrict any use of the information to criminally investigate or prosecute any alcohol or drug abuse patient.[facility] CenterIn the event this information is protected by the Federal Confidentiality of Alcohol and Drug Abuse Patient Records regulations: The Federal rules restrict any use of the information to criminally investigate or prosecute any alcohol or drug abuse patient.[facility] CenterIn the event this information is protected by the Federal Confidentiality of Alcohol and Drug Abuse Patient Records regulations: The Federal rules restrict any use of the information to criminally investigate or prosecute any alcohol or drug abuse patient.[facility] CenterIn the event this information is protected by the Federal Confidentiality of Alcohol and Drug Abuse Patient Records regulations: The Federal rules restrict any use of the information to criminally investigate or prosecute any alcohol or drug abuse patient.[facility] CenterIn the event this information is protected by the Federal Confidentiality of Alcohol and Drug Abuse Patient Records regulations: The Federal rules restrict any use of the information to criminally investigate or prosecute any alcohol or drug abuse patient.[facility] CenterIn the event this information is protected by the Federal Confidentiality of Alcohol and Drug Abuse Patient Records regulations: The Federal rules restrict any use of the information to criminally investigate or prosecute any alcohol or drug abuse patient.[facility] CenterIn the event this information is protected by the Federal Confidentiality of Alcohol and Drug Abuse Patient Records regulations: The Federal rules restrict any use of the information to criminally investigate or prosecute any alcohol or drug abuse patient.[facility] CenterIn the event this information is protected by the Federal Confidentiality of Alcohol and Drug Abuse Patient Records regulations: The Federal rules restrict any use of the information to criminally investigate or prosecute any alcohol or drug abuse patient.[facility] CenterIn the event this information is protected by the Federal Confidentiality of Alcohol and Drug Abuse Patient Records regulations: The Federal rules restrict any use of the information to criminally investigate or prosecute any alcohol or drug abuse patient.[facility] CenterIn the event this information is protected by the Federal Confidentiality of Alcohol and Drug Abuse Patient Records regulations: The Federal rules restrict any use of the information to criminally investigate or prosecute any alcohol or drug abuse patient.[facility] CenterIn the event this information is protected by the Federal Confidentiality of Alcohol and Drug Abuse Patient Records regulations: The Federal rules restrict any use of the information to criminally investigate or prosecute any alcohol or drug abuse patient.[facility] CenterIn the event this information is protected by the Federal Confidentiality of Alcohol and Drug Abuse Patient Records regulations: The Federal rules restrict any use of the information to criminally investigate or prosecute any alcohol or drug abuse patient.[facility] CenterIn the event this information is protected by the Federal Confidentiality of Alcohol and Drug Abuse Patient Records regulations: The Federal rules restrict any use of the information to criminally investigate or prosecute any alcohol or drug abuse patient.[facility] CenterIn the event this information is protected by the Federal Confidentiality of Alcohol and Drug Abuse Patient Records regulations: The Federal rules restrict any use of the information to criminally investigate or prosecute any alcohol or drug abuse patient.[facility] CenterIn the event this information is protected by the Federal Confidentiality of Alcohol and Drug Abuse Patient Records regulations: The Federal rules restrict any use of the information to criminally investigate or prosecute any alcohol or drug abuse patient.[facility] CenterIn the event this information is protected by the Federal Confidentiality of Alcohol and Drug Abuse Patient Records regulations: The Federal rules restrict any use of the information to criminally investigate or prosecute any alcohol or drug abuse patient.[facility] CenterIn the event this information is protected by the Federal Confidentiality of Alcohol and Drug Abuse Patient Records regulations: The Federal rules restrict any use of the information to criminally investigate or prosecute any alcohol or drug abuse patient.[facility] CenterIn the event this information is protected by the Federal Confidentiality of Alcohol and Drug Abuse Patient Records regulations: The Federal rules restrict any use of the information to criminally investigate or prosecute any alcohol or drug abuse patient.[facility] CenterIn the event this information is protected by the Federal Confidentiality of Alcohol and Drug Abuse Patient Records regulations: The Federal rules restrict any use of the information to criminally investigate or prosecute any alcohol or drug abuse patient.[facility] CenterIn the event this information is protected by the Federal Confidentiality of Alcohol and Drug Abuse Patient Records regulations: The Federal rules restrict any use of the information to criminally investigate or prosecute any alcohol or drug abuse patient.[facility] CenterIn the event this information is protected by the Federal Confidentiality of Alcohol and Drug Abuse Patient Records regulations: The Federal rules restrict any use of the information to criminally investigate or prosecute any alcohol or drug abuse patient.[facility] CenterIn the event this information is protected by the Federal Confidentiality of Alcohol and Drug Abuse Patient Records regulations: The Federal rules restrict any use of the information to criminally investigate or prosecute any alcohol or drug abuse patient.[facility] CenterIn the event this information is protected by the Federal Confidentiality of Alcohol and Drug Abuse Patient Records regulations: The Federal rules restrict any use of the information to criminally investigate or prosecute any alcohol or drug abuse patient.[facility] CenterIn the event this information is protected by the Federal Confidentiality of Alcohol and Drug Abuse Patient Records regulations: The Federal rules restrict any use of the information to criminally investigate or prosecute any alcohol or drug abuse patient.[facility] CenterIn the event this information is protected by the Federal Confidentiality of Alcohol and Drug Abuse Patient Records regulations: The Federal rules restrict any use of the information to criminally investigate or prosecute any alcohol or drug abuse patient.[facility] Care Teams (unrecognized sec tion and content) Property Insurance Claims Examiner Relationship Specialty Start Date End Date Vesta Stallworth MD [facility] [place] [place] [address] PCP - General Internal Medicine 04/19/12 Property Insurance Claims Examiner Relationship Specialty Start Date End Date Vesta Stallworth MD [address] [place] [address], [place] [address] PCP - General Internal Medicine 04/19/12 Property Insurance Claims Examiner Relationship Specialty Start Date End Date Vesta Stallworth MD [address] [place] [address], [place] [address] PCP - General Internal Medicine 04/19/12 Property Insurance Claims Examiner Relationship Specialty Start Date End Date Vesta Stallworth MD [address] [place] [address], [place] [address] PCP - General Internal Medicine 04/19/12 Property Insurance Claims Examiner Relationship Specialty Start Date End Date Vesta Stallworth MD [address] [place] [address], [place] [address] PCP - General Internal Medicine 04/19/12 Property Insurance Claims Examiner Relationship Specialty Start Date End Date Vesta Stallworth MD [address] [place] [address], [place] [address] PCP - General Internal Medicine 04/19/12 Property Insurance Claims Examiner Relationship Specialty Start Date End Date Vesta Stallworth MD [address] [place] [address], [place] [address] PCP - General Internal Medicine 04/19/12 Property Insurance Claims Examiner Relationship Specialty Start Date End Date Vesta Stallworth MD [address] [place] [address], [place] [address] PCP - General Internal Medicine 04/19/12 Property Insurance Claims Examiner Relationship Specialty Start Date End Date Vesta Stallworth MD [address] [facility] [place] [address] PCP - General Internal Medicine 04/19/12 Property Insurance Claims Examiner Relationship Specialty Start Date End Date Vesta Stallworth MD [address] [facility] [place] [address] PCP - General Internal Medicine 04/19/12 Property Insurance Claims Examiner Relationship Specialty Start Date End Date Vesta Stallworth MD [address] [facility] [place] [address] PCP - General Internal Medicine 04/19/12 Property Insurance Claims Examiner Relationship Specialty Start Date End Date Vesta Stallworth MD [address] [facility] [place] [address] PCP - General Internal Medicine 04/19/12 Property Insurance Claims Examiner Relationship Specialty Start Date End Date Vesta Stallworth MD [address] [facility] [place] [address] PCP - General Internal Medicine 04/19/12 Property Insurance Claims Examiner Relationship Specialty Start Date End Date Vesta Stallworth MD [address] [facility] [place] [address] PCP - General Internal Medicine 04/19/12 Property Insurance Claims Examiner Relationship Specialty Start Date End Date Vesta Stallworth MD [address] [facility] [place] [address] PCP - General Internal Medicine 04/19/12 Property Insurance Claims Examiner Relationship Specialty Start Date End Date Vesta Stallworth MD [address] [facility] [place] [address] PCP - General Internal Medicine 04/19/12 Property Insurance Claims Examiner Relationship Specialty Start Date End Date Vesta Stallworth MD [address] [facility] [place] [address] PCP - General Internal Medicine 04/19/12 Property Insurance Claims Examiner Relationship Specialty Start Date End Date Vesta Stallworth MD [address] [facility] [place] [address] PCP - General Internal Medicine 04/19/12 Property Insurance Claims Examiner Relationship Specialty Start Date End Date Vesta Stallworth MD [address] [place] [address] PCP - General Internal Medicine 04/19/12 Property Insurance Claims Examiner Relationship Specialty Start Date End Date Vesta Stallworth MD [address] [place] [address] PCP - General Internal Medicine 04/19/12 Property Insurance Claims Examiner Relationship Specialty Start Date End Date Vesta Stallworth MD [address] [place] [address] PCP - General Internal Medicine 04/19/12 Team Status: Active Member Role Status Dates Dr. Vesta Stallworth MD Family Provider Active Dr. Vesta Stallworth MD Primary Care Provider Active Team Status: Inactive Member Role Status Dates Dr. Vesta Stallworth MD Primary Care Provider Active Dr. Zoran Mathews MD Attending Provider, Referri Provider Active Property Insurance Claims Examiner Relationship Specialty Start Date End Date Vesta Stallworth MD [address] [facility] [place] [address] PCP - General Internal Medicine 04/19/12 [place] [address] [place] [address] [employer] [employer] [facility] 08/25/23 Property Insurance Claims Examiner Relationship Specialty Start Date End Date Vesta Stallworth MD [address] [place] [address] PCP - General Internal Medicine 04/19/12 [place] [address] [place] [address] [employer] [facility] 08/25/23 Property Insurance Claims Examiner Relationship Specialty Start Date End Date Vesta Stallworth MD [address] [place] [address] PCP - General Internal Medicine 04/19/12 [place] [address] [place] [address] [employer] [facility] 08/25/23 Property Insurance Claims Examiner Relationship Specialty Start Date End Date Vesta Stallworth MD [address] [place] [address] PCP - General Internal Medicine 04/19/12 [place] [address] [place] [address] [employer] [facility] 08/25/23 Property Insurance Claims Examiner Relationship Specialty Start Date End Date Vesta Stallworth MD [address] [place] [address] PCP - General Internal Medicine 04/19/12 [place] [address] [place] [address] [employer] 08/25/23 Property Insurance Claims Examiner Relationship Specialty Start Date End Date Vesta Stallworth MD [address] [place] [address] PCP - General Internal Medicine 04/19/12 [place] [address] [place] [address] [employer] 08/25/23 Property Insurance Claims Examiner Relationship Specialty Start Date End Date Vesta Stallworth MD [address] [place] [address] PCP - General Internal Medicine 04/19/12 [place] [address] [place] [address] [employer] 08/25/23 Property Insurance Claims Examiner Relationship Specialty Start Date End Date Vesta Stallworth MD [address] [place] [address] PCP - General Internal Medicine 04/19/12 [place] [address] [place], [place] [id number] [employer] 08/25/23 Property Insurance Claims Examiner Relationship Specialty Start Date End Date Vesta Stallworth MD [address] [place] [address] PCP - General Internal Medicine 04/19/12 [place] [address] [place], [place] [id number] [employer] 08/25/23 Property Insurance Claims Examiner Relationship Specialty Start Date End Date Vesta Stallworth MD [address] [place] [address] PCP - General Internal Medicine 04/19/12 [place] [address] [place] [address] [employer] 08/25/23 Property Insurance Claims Examiner Relationship Specialty Start Date End Date Vesta Stallworth MD [address] [place] [address] PCP - General Internal Medicine 04/19/12 [place] [address] [place] [address] [employer] 08/25/23 Property Insurance Claims Examiner Relationship Specialty Start Date End Date Vesta Stallworth MD [address] [place] [address] PCP - General Internal Medicine 04/19/12 [place] [address] [place] [address] [employer] 08/25/23 Property Insurance Claims Examiner Relationship Specialty Start Date End Date Vesta Stallworth MD [address] [place] [address] PCP - General Internal Medicine 04/19/12 [place] [address] [place] [address] [employer] 08/25/23 Property Insurance Claims Examiner Relationship Specialty Start Date End Date Vesta Stallworth MD [address] [place] [address] PCP - General Internal Medicine 04/19/12 [place] [address] [place] [address] [employer] 08/25/23 Property Insurance Claims Examiner Relationship Specialty Start Date End Date Vesta Stallworth MD [address] [place] [address] PCP - General Internal Medicine 04/19/12 [place] [address] [place] [address] [employer] 08/25/23 Property Insurance Claims Examiner Relationship Specialty Start Date End Date Vesta Stallworth MD [address] [place] [address] PCP - General Internal Medicine 04/19/12 [place] [address] [place] [address] [employer] 08/25/23 Property Insurance Claims Examiner Relationship Specialty Start Date End Date Vesta Stallworth MD [address] [place] [address] PCP - General Internal Medicine 04/19/12 [place] [address] [place] [address] [employer] [facility] 08/25/23 Property Insurance Claims Examiner Relationship Specialty Start Date End Date Vesta Stallworth MD [address] [place] [address] PCP - General Internal Medicine 04/19/12 [place] [address] [place] [address] [employer] [facility] 08/25/23 Property Insurance Claims Examiner Relationship Specialty Start Date End Date Vesta Stallworth MD [address] [place] [address] PCP - General Internal Medicine 04/19/12 Property Insurance Claims Examiner Relationship Specialty Start Date End Date Vesta Stallworth MD [address] [place] [address] PCP - General Internal Medicine 04/19/12 [place] [address] [place] [address] [employer] [facility] 08/25/23 Property Insurance Claims Examiner Relationship Specialty Start Date End Date Vesta Stallworth MD [address] [place] [address] PCP - General Internal Medicine 04/19/12 [place] [address] [place] [address] [employer] [facility] 08/25/23 Property Insurance Claims Examiner Relationship Specialty Start Date End Date Vesta Stallworth MD [address] [place] [address] PCP - General Internal Medicine 04/19/12 [place] [address] [place] [address] [employer] [facility] 08/25/23 Property Insurance Claims Examiner Relationship Specialty Start Date End Date Vesta Stallworth [address] [place] [address] PCP - General Internal Medicine 04/29/22 Property Insurance Claims Examiner Relationship Specialty Start Date End Date Vesta Stallworth [address] [place] [address] PCP - General Internal Medicine 04/29/22 Property Insurance Claims Examiner Relationship Specialty Start Date End Date Vesta Stallworth [address] [facility] [place] [address] PCP - General Internal Medicine 04/29/22 Property Insurance Claims Examiner Relationship Specialty Start Date End Date Vesta Stallworth MD [address] [place] [address] PCP - General Internal Medicine 04/19/12 [place] [address] [place] [address] [employer] [facility] 08/25/23 Tiara Ball FRESH WORK INSPECTOR.PHYSICIAN INDUSTRIAL [address] [place] [address] [employer] Internal Medicine 03/12/24 Yosef Sunshine FRESH WORK INSPECTOR.STEAM BOILER FIREMAN [address] [place] [address] [employer] Internal Medicine 03/12/24 Property Insurance Claims Examiner Relationship Specialty Start Date End Date Vesta Stallworth MD [address] [place] [address] PCP - General Internal Medicine 04/19/12 [place] [address] [place] [address] [employer] 08/25/23 Tiara Ball, FRESH WORK INSPECTOR.PHYSICIAN INDUSTRIAL [address] [place] [address] [employer] Internal Medicine 03/12/24 Yosef Sunshine FRESH WORK INSPECTOR.STEAM BOILER FIREMAN [address] [place] [address] [employer] Internal Medicine 03/12/24 Property Insurance Claims Examiner Relationship Specialty Start Date End Date Vesta Stallworth MD [address] [place] [address] PCP - General Internal Medicine 04/19/12 [place] [address] [place] [address] [employer] 08/25/23 Tiara Ball, FRESH WORK INSPECTOR.PHYSICIAN INDUSTRIAL [address] [place] [address] [employer] Internal Medicine 03/12/24 Yosef Sunshine FRESH WORK INSPECTOR.STEAM BOILER FIREMAN [address] [place] [address] [employer] Internal Medicine 03/12/24 Property Insurance Claims Examiner Relationship Specialty Start Date End Date Vesta Stallworth MD [address] [place] [address] PCP - General Internal Medicine 04/19/12 [place] [address] [place], [place] [phone] [employer] 08/25/23 Tiara Ball, FRESH WORK INSPECTOR.PHYSICIAN INDUSTRIAL [address] [place] [address] [employer] Internal Medicine 03/12/24 Yosef Sunshine FRESH WORK INSPECTOR.STEAM BOILER FIREMAN [address] [place] [address] [employer] Internal Medicine 03/12/24 Property Insurance Claims Examiner Relationship Specialty Start Date End Date Vesta Stallworth MD [address] [place] [address] PCP - General Internal Medicine 04/19/12 [place] [address] [place] [address] [employer] [facility] 08/25/23 Tiara Ball, FRESH WORK INSPECTOR.PHYSICIAN INDUSTRIAL [address] [facility] [place] [address] [employer] Internal Medicine 03/12/24 Yosef Sunshine FRESH WORK INSPECTOR.STEAM BOILER FIREMAN [address] [place] [address] [employer] Internal Medicine 03/12/24 Property Insurance Claims Examiner Relationship Specialty Start Date End Date Vesta Stallworth MD [address] [place] [address] PCP - General Internal Medicine 04/19/12 [place] [address] [place], [place] [id number] [employer] 08/25/23 Tiara Ball FRESH WORK INSPECTOR.PHYSICIAN INDUSTRIAL [address] [facility] [place] [address] [employer] Internal Medicine 03/12/24 Yosef Sunshine FRESH WORK INSPECTOR.STEAM BOILER FIREMAN [address] [facility] [place] [address] [employer] Internal Medicine 03/12/24 Property Insurance Claims Examiner Relationship Specialty Start Date End Date Vesta Stallworth MD [address] [facility] [place] [address] PCP - General Internal Medicine 04/19/12 [place] [address] [place] [address] [employer] 08/25/23 Tiara Ball, FRESH WORK INSPECTOR.PHYSICIAN INDUSTRIAL [address] [facility] [place] [address] [employer] Internal Medicine 03/12/24 Yosef Sunshine FRESH WORK INSPECTOR.STEAM BOILER FIREMAN [address] [facility] [place] [address] [employer] Internal Medicine 03/12/24 Property Insurance Claims Examiner Relationship Specialty Start Date End Date Vesta Stallworth MD [address] [facility] [place] [address] PCP - General Internal Medicine 04/19/12 [place] [address] [place] [address] [employer] 08/25/23 Tiara Ball, FRESH WORK INSPECTOR.PHYSICIAN INDUSTRIAL [address] [facility] [place] [address] [facility] Internal Medicine 03/12/24 Yosef Sunshine FRESH WORK INSPECTOR.STEAM BOILER FIREMAN [address] [facility] [place] [address] [facility] Internal Medicine 03/12/24 Property Insurance Claims Examiner Relationship Specialty Start Date End Date Vesta Stallworth MD [address] [facility] [place] [address] PCP - General Internal Medicine 04/19/12 [place] [address] [place], [place] [id number] [employer] 08/25/23 Tiara Ball FRESH WORK INSPECTOR.PHYSICIAN INDUSTRIAL [address] [facility] [place] [address] [employer] Internal Medicine 03/12/24 Yosef Sunshine APRN.STEAM BOILER FIREMAN [address] [place] [address] [employer] Internal Medicine 06/26/24 Property Insurance Claims Examiner Relationship Specialty Start Date End Date Vesta Stallworth MD [address] [place] [address] PCP - General Internal Medicine 04/19/12 [place] [address] [place] [address] [employer] 08/25/23 Tiara Ball APRN.PHYSICIAN INDUSTRIAL [address] [facility] [place] [address] [employer] Internal Medicine 03/12/24 Yosef Sunshine APRN.STEAM BOILER FIREMAN [address] [place] [address] [employer] Internal Medicine 06/26/24 Property Insurance Claims Examiner Relationship Specialty Start Date End Date Vesta Stallworth MD [address] [place] [address] PCP - General Internal Medicine 04/19/12 [place] [address] [place] [address] [employer] 08/25/23 Tiara Ball APRN.PHYSICIAN INDUSTRIAL [address] [place] [address] [employer] Internal Medicine 03/12/24 Yosef Sunshine APRN.STEAM BOILER FIREMAN [address] [place] [address] [employer] Internal Medicine 06/26/24 Property Insurance Claims Examiner Relationship Specialty Start Date End Date Vesta Stallworth MD [address] [place], [place] [address] PCP - General Internal Medicine 04/19/12 [place] [address] [place] [address] [employer] 08/25/23 Tiara Ball, FRESH WORK INSPECTOR.PHYSICIAN INDUSTRIAL [address] [place], [place] [address] [employer] Internal Medicine 03/12/24 Yosef Sunshine FRESH WORK INSPECTOR.STEAM BOILER FIREMAN [address] [place] [address] [employer] Internal Medicine 06/26/24 Team Status: Active Member Role Status Dates Dr. Vesta Stallworth MD Primary Care Provider Active Team Status: Inactive Member Role Status Dates Dr. Vesta Stallworth MD Primary Care Provider Active Start: August 16, 2024 End: August 16, 2024 Dr. Vesta Stallworth MD Referring Provider Active Start: August 16, 2024 End: August 16, 2024 Dr. Jesus Peacock MD Attending Provider Active Start: August 16, 2024 End: August 16, 2024 Goals (unrecognized section and content) Goals may be documented in a n alternate sectionGoals may be documented in an alternate sectionGoals may be documented in an alternate sectionGoals may be documented in an alternate section FOR RECORDS PERTAINING TO PATIENTS WHO ARE OR HAVE BEEN ENROLLED IN A CHEMICAL DEPENDENCY/SUBSTANCEABUSE PROGRAM, SOME INFORMATION MAY BE OMITTED. This clinical summary was aggregated from multiple sources. Caution should be exercised in using it in the provision of clinical care. This summary normalizes information from multiple sources, and as a consequence, information in this document may materially change the coding, format and clinical context of patient data. In addition, data may be omitted in some cases. CLINICAL DECISIONS SHOULD BE BASED ON THE PRIMARY CLINICAL RECORDS. [facility] [employer] [facility]. provides no warranty or guarantee of the accuracy or completeness of information in this document.
--- NOTE | 2024-09-12 14:10 | NEURO ---
NCS and/or EMG Patient Report Ordering Doctor: Jesus Peacock DATE OF SERVICE: 09/12/24 Gideon presents for electrodiagnostic testing of the lower limbs. He reports numbness in both legs, primarily on the left side. He reports a family history of CMT. Electrodiagnostic findings: Left peroneal motor nerve demonstrates normal latency and amplitude with borderline reduced conduction velocity. Right peroneal motor response is within normal limits. Tibial motor response within normal limits bilaterally. Prolonged sural latency is noted bilaterally. Normal superficial peroneal latency bilaterally. Prolonged tibial and peroneal F?waves. Prolonged H?reflex bilaterally. Needle EMG testing was performed in the lower limbs. All muscles tested showed no evidence of denervation with normal motor unit action potentials. Electrodiagnostic impression: This is an abnormal study. 1. Electrodiagnostic findings are suggestive of a mild, primarily sensory polyneuropathy. This is likely secondary to history of diabetes. There is no electrodiagnostic evidence for CMT. 2. No electrodiagnostic evidence is noted for lumbosacral radiculopathy. Multi Select Codes Neurology Neurology Interp Codes: 31836-48 Musc test done w/n test comp (interp) (2) and 99629-51 Nrv cndj test 9-10 studies (interp)
== END | disposition home or self-care (01) ==
LOC: PSN 07:02
PROVIDERS: PCP Internal Medicine; Referring Provider Psychiatry & Neurology Neurology; Visit Provider Psychiatry & Neurology Neurology
DX: M79.672 Pain in left foot (principal); M54.50 Low back pain, unspecified; Z82.0 Family history of epilepsy and other diseases of the nervous system; G62.9 Polyneuropathy, unspecified
CPT/HCPCS: 95886; 95911